=== PATIENT | male | born 1935 | race Caucasian/White ===

== ENCOUNTER 2016-12-11 13:42 | Inpatient (IN) | payer OTHER, MEDICARE ==
[2016-12-11 15:11] LABS: MCH 33.2 pg (25.7-33.7); MCHC 33.6 g/dl (32.0-35.9); MEAN CELL VOLUME 98.6 fl (80-96); MEAN PLT VOLUME 6.6 fl (7.5-11.1); PLATELET COUNT 251 K/MM3 (134-434); WHITE BLOOD COUNT 2.3 K/mm3 (4.0-10.0)
[2016-12-11 15:37] LABS: INR 1.16 (0.82-1.09); PROTHROMBIN TIME (PATIENT) 12.8 SEC (9.98-11.88)
[2016-12-11 15:40] LABS: ACTIVATED PTT 32.3 SECONDS (26.9-34.4)
--- NOTE | 2016-12-11 15:41 | PDOC ---
History of Present Illness - General History Source: Patient Exam Limitations: No Limitations - History of Present Illness Initial Comments: 12/11/16 16:08 The patient is a 81 year old male presenting with his sister, with a significant past medical history of gout, nose melanoma, HTN, CAD s/p tripple bypass, Lung CA s/p nodule removal, who presents to the emergency department with shortness of breath and low blood pressure onset today while at at doctors appointment. He notes that he has been having shortness of breath for the past month or so but has worsened since yesterday. He notes that his health informatics advisor wants him to get a stress test but has been unable to due to his gout flare ups. He states that he currently takes an Aspirin daily. The patient denies chest pain, headache and dizziness. Denies fever, chills, nausea, vomit, diarrhea and constipation. Denies dysuria, frequency, urgency and hematuria. Allergies: None Past surgical history: Tripple Bypass, lung nodule removal Social history: (+) No tobacco or drug use reported PMD - Dr. Vonda Negron Cardiology - Dr. Irene Pulmonary - Dr. Leigh ENT - Dr. Corley <Dawson Madden - Last Filed: 12/11/16 16:08> <Ethan Arriola - Last Filed: 12/11/16 16:53> - General Chief Complaint: Shortness of Breath Stated Complaint: SOB Time Seen by Provider: 12/11/16 14:22 Past History <Dawson Madden - Last Filed: 12/11/16 16:08> - Past Medical History Cardiac Disorders: Yes Other medical history: gout - Surgical History Cardiac Surgery: Yes (bypass) - Psycho/Social/Smoking Cessation Hx Anxiety: No Suicidal Ideation: No Smoking History: Never smoked Have you smoked in the past 12 months: No Information on smoking cessation initiated: No Hx Alcohol Use: No Drug/Substance Use Hx: No Substance Use Type: None <Ethan Arriola - Last Filed: 12/11/16 16:53> - Past Medical History Allergies/Adverse Reactions: Allergies Allergy/AdvReac Type Severity Reaction Status Date / Time No Known Allergies Allergy Verified 12/11/16 13:46 Home Medications: Ambulatory Orders Allopurinol [Zyloprim -] 100 mg PO DAILY 12/11/16 Aspirin [ASA -] 81 mg PO DAILY 12/11/16 Atorvastatin Ca [Lipitor] 40 mg PO HS 12/11/16 Colchicine 0.6 mg PO DAILY 12/11/16 Diazepam [Valium] 2 mg PO PRN 12/11/16 Furosemide [Lasix] 40 mg PO DAILY 12/11/16 Losartan Potassium 50 mg PO DAILY 12/11/16 Metoprolol Tartrate 25 mg PO DAILY 12/11/16 Potassium Chloride [Klor-Con 10] 10 mg PO DAILY 12/11/16 Review of Systems - Review of Systems Able to Perform ROS?: Yes Comments:: 12/11/16 16:08 GENERAL/CONSTITUTIONAL: No fever or chills. No weakness. HEAD, EYES, EARS, NOSE AND THROAT: No change in vision. No ear pain or discharge. No sore throat. CARDIOVASCULAR: No chest pain RESPIRATORY: (+) Shortness of breath. No cough, wheezing, or hemoptysis. GASTROINTESTINAL: No nausea, vomiting, diarrhea or constipation. GENITOURINARY: No dysuria, frequency, or change in urination. MUSCULOSKELETAL: No joint or muscle swelling or pain. No neck or back pain. SKIN: No rash NEUROLOGIC: No headache, vertigo, loss of consciousness, or change in strength/ sensation. ENDOCRINE: No increased thirst. No abnormal weight change HEMATOLOGIC/LYMPHATIC: No anemia, easy bleeding, or history of blood clots. ALLERGIC/IMMUNOLOGIC: No hives or skin allergy. <Dawson Madden - Last Filed: 12/11/16 16:08> *Physical Exam - Vital Signs Last Vital Signs Temp Pulse Resp BP Pulse Ox 97.8 F 63 16 132/50 100 12/11/16 15:47 12/11/16 15:47 12/11/16 15:47 12/11/16 15:47 12/11/16 15:47 - Physical Exam Comments: 12/11/16 16:08 GENERAL: Awake, alert, and fully oriented, in no acute distress HEAD: No signs of trauma, normocephalic, atraumatic EYES: PERRLA, EOMI, sclera anicteric, conjunctiva clear ENT: Auricles normal inspection, hearing grossly normal, nares patent, oropharynx clear without exudates. Moist mucosa NECK: Normal ROM, supple, no lymphadenopathy, JVD, or masses LUNGS: (+) Tachypnia to mid 20s. No distress, speaks full sentences, clear to auscultation bilaterally HEART: Regular rate and rhythm, normal S1 and S2, no murmurs, rubs or gallops, peripheral pulses normal and equal bilaterally. ABDOMEN: Soft, nontender, normoactive bowel sounds. No guarding, no rebound. No masses EXTREMITIES: Normal inspection, Normal range of motion, no edema. No clubbing or cyanosis. NEUROLOGICAL: Cranial nerves II through XII grossly intact. Normal speech, normal gait, no focal sensorimotor deficits SKIN: Warm, Dry, normal turgor, no rashes or lesions noted. <Dawson Madden - Last Filed: 12/11/16 16:08> - Vital Signs Last Vital Signs Temp Pulse Resp BP Pulse Ox 97 F L 65 18 125/49 100 12/11/16 13:46 12/11/16 13:46 12/11/16 13:46 12/11/16 13:46 12/11/16 13:46 <Ethan Arriola - Last Filed: 12/11/16 16:53> Heart Score/ECG Review #1 ECG reviewed & interpreted by me at: 16:30 12/11/16 16:52 NSR 64 with 1st degree AV block, +LVH with strain, Q wave V1-V2, no std/manuelito, QTC 449 msec <Ethan Arriola - Last Filed: 12/11/16 16:53> ED Treatment Course - LABORATORY CBC & Chemistry Diagram: 12/11/16 14:55 12/11/16 14:55 - ADDITIONAL ORDERS Additional order review: Laboratory Results 12/11/16 12/11/16 12/11/16 15:40 14:55 14:55 INR 1.16 H PTT (Actin FS) 32.3 Sodium 139 Potassium 5.1 Chloride 102 Carbon Dioxide 23 Anion Gap 14 BUN 30 H Creatinine 1.7 H Creat Clearance w eGFR 38.78 Random Glucose 97 Calcium 8.8 Magnesium 2.3 Total Bilirubin 0.3 AST 24 ALT 33 Alkaline Phosphatase 97 Creatine Kinase 128 Troponin I < 0.02 B-Natriuretic Peptide 4922.74 H Total Protein 7.2 Albumin 3.1 L Crossmatch See Detail 12/11/16 14:55 RBC 1.69 L MCV 98.6 H MCHC 33.6 RDW 17.0 H MPV 6.6 L Neutrophils % Y Lymphocytes % Y <Dawson Madden - Last Filed: 12/11/16 16:08> - LABORATORY CBC & Chemistry Diagram: 12/11/16 14:55 12/11/16 14:55 - ADDITIONAL ORDERS Additional order review: Laboratory Results 12/11/16 14:55 Sodium 139 Potassium 5.1 Chloride 102 - RADIOLOGY Radiology Studies Ordered: Category Date Time Status CHEST X-RAY PORTABLE* [RAD] Stat Radiology 12/11/16 14:40 Completed <Ethan Arriola - Last Filed: 12/11/16 16:53> Medical Decision Making - Medical Decision Making 12/11/16 16:22 A portion of this note was documented by scribe services under my direction. I have reviewed the details of the note, within reason, and agree with the documentation with the following case summary and management plan written by me. Patient treated in the ED. Nursing notes are reviewed and incorporated into the medical decision-making. Vital signs reviewed. Peripheral IV access obtained by the nurse, laboratory studies are drawn and sent, reviewed and interpreted by myself. Vital Signs Temp Pulse Resp BP Pulse Ox 97.8 F 63 16 132/50 100 12/11/16 15:47 12/11/16 15:47 12/11/16 15:47 12/11/16 15:47 12/11/16 15:47 81-year-old male with past medical history of gout, nose melanoma, hypertension , coronary disease status post triple bypass, lung cancer status post removal presents with shortness of breath. The patient has noticed in last several weeks that he's been dyspneic at rest and dyspnea on exertion. Never endorsed any chest pain. Patient was under evaluation for an ear examined today for routine visit by an distribution warehouse manager when he noticed that he was to continue to rest. Patient denies any rectal bleeding or any other symptoms or pain at the time. Was sent in for cardiac workup. CBC, BMP 12/11/16 14:55 12/11/16 14:55 CMP Sodium 139 mmol/L (136-145) 12/11/16 14:55 Potassium 5.1 mmol/L (3.5-5.1) 12/11/16 14:55 Chloride 102 mmol/L (98-107) 12/11/16 14:55 Carbon Dioxide 23 mmol/L (21-32) 12/11/16 14:55 Anion Gap 14 (8-16) 12/11/16 14:55 BUN 30 mg/dL (7-18) H 12/11/16 14:55 Creatinine 1.7 mg/dL (0.7-1.3) H 12/11/16 14:55 Creat Clearance w eGFR 38.78 (>60) 12/11/16 14:55 Random Glucose 97 mg/dL (74-106) 12/11/16 14:55 Calcium 8.8 mg/dL (8.5-10.1) 12/11/16 14:55 Magnesium 2.3 mg/dL (1.8-2.4) 12/11/16 14:55 Total Bilirubin 0.3 mg/dL (0.2-1.0) 12/11/16 14:55 AST 24 U/L (15-37) 12/11/16 14:55 ALT 33 U/L (12-78) 12/11/16 14:55 Alkaline Phosphatase 97 U/L (45-117) 12/11/16 14:55 Creatine Kinase 128 IU/L (39-308) 12/11/16 14:55 Troponin I < 0.02 ng/ml (0.00-0.05) 12/11/16 14:55 B-Natriuretic Peptide 4922.74 pg/ml (5-450) H 12/11/16 14:55 Total Protein 7.2 g/dl (6.4-8.2) 12/11/16 14:55 Albumin 3.1 g/dl (3.4-5.0) L 12/11/16 14:55 Patient was noted to have a hemoglobin of 5 and change. Concerning for subarachnoid anemia. 2 units PRBC ordered. Risks and benefits are discussed with the patient patient consents for blood transfusion.. We'll order 40 mg of IV Lasix in between blood. Case was discussed with Dr. Negron who accepts the patient for telemetry admission. Dr. Irene consulted. Stool occult ordered. Pt also noted to have acute renal insufficiency. Case discussed in detail with admitting physician including history, physical exam and ancillary studies. Admitting physician has assumed care for the patient, will follow all pending diagnostics and will complete the evaluation and treatment. <Ethan Arriola - Last Filed: 12/11/16 16:53> *DC/Admit/Observation/Transfer - Attestations Scribe Attestion: 12/11/16 16:09 Documentation prepared by Dawson Madden, acting as ophthalmic medical technician for Ethan Arriola MD <Dawson Madden - Last Filed: 12/11/16 16:08> - Discharge Dispostion Admit: Yes <Ethan Arriola - Last Filed: 12/11/16 16:53> Diagnosis at time of Disposition: Acute kidney injury, Shortness of breath Anemia Qualifiers: Anemia type: unspecified type Qualified Code(s): D64.9 - Anemia, unspecified - Referrals
[2016-12-11 15:47] LABS: ALBUMIN 3.1 g/dl (3.4-5.0); ANION GAP 14 (8-16); BILIRUBIN,TOTAL 0.3 mg/dL (0.2-1.0); CALCIUM 8.8 mg/dL (8.5-10.1); CO2 23 mmol/L (21-32); COCKROFT - GAULT 40.83; CREATININE 1.7 mg/dL (0.7-1.3); GLUCOSE,RANDOM 97 mg/dL (74-106); SGPT/ALT 33 U/L (12-78); TOT PROT 7.2 g/dl (6.4-8.2)
[2016-12-11 15:49] LABS: ALK PHOS 97 U/L (45-117); TROPONIN I < 0.02 ng/ml (0.00-0.05)
[2016-12-11 15:52] LABS: MAGNESIUM 2.3 mg/dL (1.8-2.4); SGOT/AST 24 U/L (15-37)
[2016-12-11] MEDS ORDERED: FUROSEMIDE 40 MG/4 ML INJECTABLE VIAL IVPB ONE (15:55)
[2016-12-11 18:07] LABS: PLATELET ESTIMATE ADEQUATE (NORMAL)
[2016-12-11 18:08] LABS: POLYCHROMASIA 1+
[2016-12-11] MEDS ORDERED: ACETAMINOPHEN 325 MG TABLET (FP) PO PRN (18:37)
--- NOTE | 2016-12-11 18:45 | HP ---
Admitting History and Physical - Primary Care Physician PCP: Vonda Negron - Admission Chief Complaint: SENT FROM ENT OFFICE BECAUSE OF HYPOTENSION 90/40MM/HG WITH DIZZINESS, DYSPNEA, WEAKNESS History of Present Illness: PATIENT WELL KNOWN TO MY SERVICE WITH CAD/CABG/LIPIDEMIA/SEVERE GOUT/HTN/OBESITY /NON-COMPLIANT WITH MEDICAL FOLLOW UP AND REGIMEN. HERE WITH WEAKNESS, ACUTE ANEMIA, HYPOTENSION, SEVERE GOUT AND DYSPNEA. The patient is a 81 year old male presenting with his sister, with a significant past medical history of gout, nose melanoma, HTN, CAD s/p tripple bypass, Lung CA s/p nodule removal, who presents to the emergency department with shortness of breath and low blood pressure onset today while at at doctors appointment. He notes that he has been having shortness of breath for the past month or so but has worsened since yesterday. He notes that his country singer wants him to get a stress test but has been unable to due to his gout flare ups. He states that he currently takes an Aspirin daily. The patient denies chest pain, headache and dizziness. Denies fever, chills, nausea, vomit, diarrhea and constipation. Denies dysuria, frequency, urgency and hematuria. Allergies: None Past surgical history: Tripple Bypass, lung nodule removal Social history: (+) No tobacco or drug use reported PMD - Dr. Vonda Negron Cardiology - Dr. Irene Pulmonary - Dr. Leigh ENT - Dr. Corley - Smoking History Smoking history: Never smoked Have you smoked in the past 12 months: No - Alcohol/Substance Use Hx Alcohol Use: No Home Medications - Allergies Allergies/Adverse Reactions: Allergies Allergy/AdvReac Type Severity Reaction Status Date / Time No Known Allergies Allergy Verified 12/11/16 13:46 - Home Medications Home Medications: Ambulatory Orders Allopurinol [Zyloprim -] 100 mg PO DAILY 12/11/16 Aspirin [ASA -] 81 mg PO DAILY 12/11/16 Atorvastatin Ca [Lipitor] 40 mg PO HS 12/11/16 Colchicine 0.6 mg PO DAILY 12/11/16 Diazepam [Valium] 2 mg PO PRN 12/11/16 Furosemide [Lasix] 40 mg PO DAILY 12/11/16 Losartan Potassium 50 mg PO DAILY 12/11/16 Metoprolol Tartrate 25 mg PO DAILY 12/11/16 Potassium Chloride [Klor-Con 10] 10 mg PO DAILY 12/11/16 Review of Systems - Review of Systems Constitutional: reports: Lethargy, Loss of Appetite, Weakness Eyes: reports: No Symptoms HENT: reports: No Symptoms Neck: reports: No Symptoms Cardiovascular: reports: Shortness of Breath Respiratory: reports: Cough, SOB Gastrointestinal: reports: No Symptoms Genitourinary: reports: No Symptoms Musculoskeletal: reports: Joint Pain Integumentary: reports: No Symptoms Neurological: reports: No Symptoms Endocrine: reports: No Symptoms Hematology/Lymphatic: reports: No Symptoms Psychiatric: reports: No Symptoms Physical Examination Vital Signs: Vital Signs Temperature 98.6 F 12/11/16 17:59 Pulse Rate 66 12/11/16 17:59 Respiratory Rate 18 12/11/16 17:59 Blood Pressure 137/56 12/11/16 17:59 O2 Sat by Pulse Oximetry (%) 100 12/11/16 17:59 Constitutional: Yes: Moderate Distress Eyes: Yes: WNL HENT: Yes: Other (PALE APPEARANCE) Neck: Yes: WNL Cardiovascular: Yes: WNL Respiratory: Yes: Cough, Diminished, SOB, SOB on Exertion Gastrointestinal: Yes: WNL Renal/: Yes: WNL Musculoskeletal: Yes: Muscle Weakness Extremities: Yes: WNL Edema: Yes Edema: LLE: Trace, RLE: Trace Peripheral Pulses WNL: Yes Integumentary: Yes: WNL Wound/Incision: Yes: Clean/Dry Neurological: Yes: WNL ...Motor Strength: WNL Psychiatric: Yes: WNL Imaging - Results Chest X-ray: Report Reviewed Problem List - Problems (1) Acute kidney injury Code(s): N17.9 - ACUTE KIDNEY FAILURE, UNSPECIFIED (2) Anemia Code(s): D64.9 - ANEMIA, UNSPECIFIED Qualifiers: Anemia type: unspecified type Qualified Code(s): D64.9 - Anemia, unspecified (3) Shortness of breath Code(s): R06.02 - SHORTNESS OF BREATH (4) Gout attack Code(s): M10.9 - GOUT, UNSPECIFIED Qualifiers: Gout site: foot Gout etiology: unspecified cause Laterality: left Qualified Code(s): M10.9 - Gout, unspecified (5) Hx of CABG Code(s): Z95.1 - PRESENCE OF AORTOCORONARY BYPASS GRAFT (6) Weakness generalized Code(s): R53.1 - WEAKNESS (7) Melanoma Code(s): C43.9 - MALIGNANT MELANOMA OF SKIN, UNSPECIFIED Qualifiers: Melanoma location: face excluding eyelid, nose, lip, and ear Qualified Code(s): C43.30 - Malignant melanoma of unspecified part of face (8) Lung cancer Code(s): C34.90 - MALIGNANT NEOPLASM OF UNSP PART OF UNSP BRONCHUS OR LUNG Qualifiers: Laterality: unspecified laterality Lung location: unspecified part of lung Qualified Code(s): C34.90 - Malignant neoplasm of unspecified part of unspecified bronchus or lung Assessment/Plan ANEMIA UNKNOWN CAUSE AT THIS TIME NEOPLASM? BLEED? GOUT INDUCED FROM NSAIDS WITH GI BLEED? 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
[2016-12-11] MEDS: COLCHICINE 0.6 MG TABLET (FP) PO SCH (19:00)
[2016-12-11] MEDS: PANTOPRAZOLE 40 MG TABLET (FP) PO SCH (19:00)
[2016-12-11] MEDS: methylPREDNISolone 4 MG TABLET PO SCH (20:00)
[2016-12-11] MEDS ORDERED: ATORVASTATIN CA 40 MG TABLET (FP) ONE (21:55)
[2016-12-11] MEDS ORDERED: PANTOPRAZOLE 40 MG TABLET (FP) ONE (21:55)
[2016-12-11] MEDS ORDERED: COLCHICINE 0.6 MG TABLET (FP) ONE (21:55)
[2016-12-11] MEDS: ATORVASTATIN CA 20 MG TABLET (FP) PO SCH (21:58)
[2016-12-11] MEDS ORDERED: FUROSEMIDE 40 MG/4 ML INJECTABLE VIAL ONE (22:00)
[2016-12-12 02:40] VITALS: BMI 31.7
[2016-12-12 07:46] LABS: MCH 32.2 pg (25.7-33.7); MCHC 34.3 g/dl (32.0-35.9); MEAN CELL VOLUME 93.6 fl (80-96); MEAN PLT VOLUME 6.3 fl (7.5-11.1); PLATELET COUNT 222 K/MM3 (134-434); RDW 18.3 % (11.9-15.9)
[2016-12-12 08:03] LABS: URIC ACID 7.4 mg/dL (2.6-7.2)
[2016-12-12 08:12] LABS: ALBUMIN 2.9 g/dl (3.4-5.0); BILIRUBIN,TOTAL 0.6 mg/dL (0.2-1.0); CALCIUM 8.4 mg/dL (8.5-10.1); COCKROFT - GAULT 45.73; CREATININE 1.4 mg/dL (0.7-1.3); TOT PROT 6.8 g/dl (6.4-8.2); WHITE BLOOD COUNT 1.8 K/mm3 (4.0-10.0)
--- NOTE | 2016-12-12 08:31 | CON.CARD ---
Consult Consult Specialty:: Cardiology Referred by:: Dr. Negron Reason for Consultation:: Hypotension, dizziness, syncope, cad - History of Present Illness Chief Complaint: sent to ER for hypotension, dizziness History of Present Illness: 81 year old man with a history of HTN, HLD, CAD s/p CABG, Chronic diastolic CHF , melonoma of nose, Lung CA s/p nodule resection, gout, sent to ER from ENT office for hypotension, dizziness. Pt. seen and examined today in nad. states he is feeling better. states that this past sunday he had an episode of syncope at home preceded by dizziness. denies any bleeding. no black or bloody stools. no chest pain, sob, palpitations, pnd, orthopnea, or LE edema. Pt found to be severely anemic and neutropenic. - History Source History Provided By: Patient, Medical Record Limitations to Obtaining History: No Limitations - Past Medical History Cardio/Vascular: Yes: CAD, HTN, Hyperlipdemia Pulmonary: Yes: Cancer Heme/Onc: Yes: Cancer Rheumatology: Yes: Gout - Past Surgical History Past Surgical History: Yes: CABG - Alcohol/Substance Use Hx Alcohol Use: No - Smoking History Smoking history: Former smoker Have you smoked in the past 12 months: No - Social History History of Recent Travel: No Home Medications - Allergies Allergies/Adverse Reactions: Allergies Allergy/AdvReac Type Severity Reaction Status Date / Time No Known Allergies Allergy Verified 12/11/16 13:46 - Home Medications Home Medications: Ambulatory Orders Allopurinol [Zyloprim -] 100 mg PO DAILY 12/11/16 Aspirin [ASA -] 81 mg PO DAILY 12/11/16 Atorvastatin Ca [Lipitor] 40 mg PO HS 12/11/16 Colchicine 0.6 mg PO DAILY 12/11/16 Diazepam [Valium] 2 mg PO PRN 12/11/16 Furosemide [Lasix] 40 mg PO DAILY 12/11/16 Losartan Potassium 50 mg PO DAILY 12/11/16 Metoprolol Tartrate 25 mg PO DAILY 12/11/16 Potassium Chloride [Klor-Con 10] 10 mg PO DAILY 12/11/16 Family Disease History - Family Disease History Family History: Denies Review of Systems - Review of Systems Constitutional: reports: Loss of Appetite, Unintentional Wgt. Loss, Weakness. denies: No Symptoms, Chills, Diaphoresis, Fever, Lethargy, Malaise, Night Sweats , Other Eyes: denies: No Symptoms, Blind Spots, Blurred Vision, Double Vision, Eye Pain , Floaters, Photophobia, Recent Change in Vision, Other HENT: denies: No Symptoms, Difficult Swallowing, Ear Discharge, Ear Pain, Epistaxis, Gingival Bleeding, Hearing Loss, Mouth Swelling, Nasal Congestion, Ocular Prosthesis, Throat Pain, Toothache, Ringing in Ears, Other Neck: denies: No Symptoms, Decreased ROM, Lumps, Pain on Movement, Stiffness, Swollen Glands, Tenderness, Other Cardiovascular: denies: No Symptoms, Chest Pain, Edema, Palpitations, Shortness of Breath, Other Respiratory: reports: Exercise Intolerance, SOB on Exertion. denies: No Symptoms, Cough, Hemoptysis, Orthopnea, PND, Snoring, SOB, Wheezing, Other Gastrointestinal: denies: No Symptoms, Abdominal Pain, Bloating, Constipation, Diarrhea, Dysphagia, Indigestion, Melena, Nausea, Rectal Bleeding, Vomiting, Vomiting Blood, Other Genitourinary: denies: No Symptoms, Burning, Discharge, Dysuria, Flank Pain, Frequency, Hematuria, Incontinence, Lesions, Menses, Pain, Testicular Mass, Testicular Pain, Testicular Swelling, Urgency, Vaginal Bleeding, Other Breasts: denies: No Symptoms Reported, See HPI, Breast Implants, Discharge from Nipple, Lumps, Pain, Skin Changes, Other Musculoskeletal: denies: No Symptoms, Back Pain, Crepitus, Decreased ROM, Extremity Pain, Joint Pain, Joint Swelling, Muscle Pain, Muscle Cramps, Muscle Weakness, Other Integumentary: denies: No Symptoms, Blister, Bruising, Change in Color, Eczema, Erythema, Incision, Lesions, Lump, Pallor, Pruritis, Rash, Wound, Other Neurological: reports: Dizziness, Syncope. denies: No Symptoms, Change in LOC, Change in Speech, Confusion, Headache, Incoordination, Numbness, Parasthesia, Pre-Existing Deficit, Seizure, Tremors, Unsteady Gait, Weakness, Other Endocrine: denies: No Symptoms, Excessive Sweating, Flushing, Increased Hunger, Increased Thirst, Intolerance to Cold, Intolerance to Heat, Unexplained Weight Gain, Unexplained Weight Loss, Other Hematology/Lymphatic: denies: No Symptoms, Easily Bruised, Excessive Bleeding, Swollen Glands, Other Psychiatric: denies: No Symptoms, Altered Sleep Pattern, Anxiety, Depression, Hallucinations, Panic, Paranoia, Suicidal, Other - Risk Factors Known Risk Factors: Yes: Hypercholesterolemia, Hypertension Vital Signs: Vital Signs Temperature 98.1 F 12/12/16 05:45 Pulse Rate 71 12/12/16 05:45 Respiratory Rate 20 12/12/16 05:45 Blood Pressure 133/67 12/12/16 05:45 O2 Sat by Pulse Oximetry (%) 100 12/11/16 23:23 Constitutional: Yes: Well Nourished, No Distress, Calm Eyes: Yes: WNL, Conjunctiva Clear, EOM Intact HENT: Yes: WNL, Atraumatic, Normocephalic Neck: Yes: WNL, Supple, Trachea Midline Respiratory: Yes: WNL, Regular, CTA Bilaterally. No: Rales, Rhonchi, Wheezes Gastrointestinal: Yes: WNL, Normal Bowel Sounds, Soft. No: Distention, Tenderness Renal/: Yes: WNL Cardiovascular: Yes: Regular Rate and Rhythm. No: Bradycardia, Tachycardia, Pulse Irregular, Gallop, Rub, Varicosities JVD: No Carotid Bruit: No PMI: Non-Displaced Heart Sounds: Yes: S1, S2. No: Split S2, S3, S4, Clicks, Gallop, Rub, Bruit Murmur: No: Systolic Murmur, Diastolic Murmur Musculoskeletal: Yes: WNL Extremities: Yes: WNL Edema: No Peripheral Pulses WNL: Yes Peripheral Pulses: 2+ Left Doralis Pedis, 2+ Right Dorsalis Pedis Integumentary: Yes: WNL Neurological: Yes: Alert, Oriented, Cran Nerves II-XII Intact ...Motor Strength: WNL Psychiatric: Yes: WNL, Alert, Oriented - Other Data Labs, Other Data: CBC, BMP 12/12/16 05:40 INR, PTT INR 1.16 (0.82-1.09) H 12/11/16 14:55 ekg-NSR 64bpm, septal infarct, LVH, LAFB Echo: Pending, Report Reviewed Prior Cardiac Procedures: CABG, Cardiac Catheterization Imaging - Results Chest X-ray: Report Reviewed, Image Reviewed EKG: Report Reviewed, Image Reviewed Other: Report Reviewed, Image Reviewed (tele-nsr, sinus kelly, apcs, pvcs) Problem List - Problems (1) Anemia Code(s): D64.9 - ANEMIA, UNSPECIFIED Qualifiers: Anemia type: unspecified type Qualified Code(s): D64.9 - Anemia, unspecified (2) Hx of CABG Code(s): Z95.1 - PRESENCE OF AORTOCORONARY BYPASS GRAFT (3) Shortness of breath Code(s): R06.02 - SHORTNESS OF BREATH (4) Syncope Code(s): R55 - SYNCOPE AND COLLAPSE (5) Dizziness Code(s): R42 - DIZZINESS AND GIDDINESS (6) HTN (hypertension) Code(s): I10 - ESSENTIAL (PRIMARY) HYPERTENSION (7) HLD (hyperlipidemia) Code(s): E78.5 - HYPERLIPIDEMIA, UNSPECIFIED (8) Chronic diastolic (congestive) heart failure Code(s): I50.32 - CHRONIC DIASTOLIC (CONGESTIVE) HEART FAILURE Assessment/Plan 81 year old man with a history of HTN, HLD, CAD s/p CABG, Chronic diastolic CHF , melonoma of nose, Lung CA s/p nodule resection, gout, sent to ER from ENT office for hypotension, dizziness. states that this past sunday he had an episode of syncope at home preceded by dizziness.Pt found to be severely anemic and neutropenic. Dizziness/Hypotension/Syncope-likely secondary to severe symptomatic anemia -no events on tele and no sig abnormalities on ekg -H/H improved with PRBCs -anemia work up in progress, heme/onc consult pending -hydrate as needed for intravascular depletion-should improve with PRBC transfusions -can check echo and carotid doppler to confirm no sig abnl -echo done 06/2016 in office showed normal LV systolic function -can cont tele for now while severely anemic CAD h/o CABG-stable -pt last seen in office 06/2016 refused nuclear stress test at that time -holding metoprolol, losartan, lasix for now for hypotension and intravascular depletion -hold ASA until etiology of anemia determined -plan to re-introduce meds as tolerated -can cont statin HTN-low normal, symptomatic on admission -holding anti-HTN meds for now HLD -cont statin Chronic diastolic CHF-euvolemic, intravascularly depleted -hold lasix for now, re-introduce as tolerates
[2016-12-12 08:38] LABS: C-REACTIVE PROTEIN 8.2 MG/DL (0.00-0.3)
[2016-12-12 09:08] LABS: PLATELET ESTIMATE ADEQUATE (NORMAL)
[2016-12-12] MEDS: methylPREDNISolone 4 MG TABLET PO SCH ×2 (09:51→14:01)
[2016-12-12] MEDS: PANTOPRAZOLE 40 MG TABLET (FP) PO SCH (09:51)
[2016-12-12] MEDS: COLCHICINE 0.6 MG TABLET (FP) PO SCH (09:51)
[2016-12-12] MEDS ORDERED: ASPIRIN 81 MG CHEWABLE TABLETS PO SCH (10:00)
--- NOTE | 2016-12-12 11:37 | EKG ---
Test Reason : Blood Pressure : / mmHG Vent. Rate : 064 BPM Atrial Rate : 064 BPM P-R Int : 214 ms QRS Dur : 140 ms QT Int : 436 ms P-R-T Axes : 000 -44 112 degrees QTc Int : 449 ms SINUS RHYTHM WITH 1ST DEGREE A-V BLOCK LEFT AXIS DEVIATION LEFT BUNDLE BRANCH BLOCK ABNORMAL ECG WHEN COMPARED WITH ECG OF 25-DEC-2009 13:11, NO SIGNIFICANT CHANGE WAS FOUND Confirmed by MALINI WOODWARD, HARLEEN ([id number]) on 12/12/2016 11:36:36 AM Referred By: Confirmed By:HARLEEN NAYAK MD
--- NOTE | 2016-12-12 11:56 | PN ---
Progress Note (short form) - Note Progress Note: PULMONARY CONSULTATION DICTATED 12/12/16 IMP DYSPNEA,HYPOTENSION SECONDARY TO SEVERE ANEMIA ANEMIA,NEUTROPENIA DIASTOLIC HF ASHD S/P CABG H/O LUNG CA S/P RESECTION HLD H/O MELANOMA GOUT PLAN TRANSFUSE MONITOR H+H HEME W/U ECHO O2 PRN DR HANSEN Problem List - Problems (1) Acute kidney injury Code(s): N17.9 - ACUTE KIDNEY FAILURE, UNSPECIFIED (2) Anemia Code(s): D64.9 - ANEMIA, UNSPECIFIED Qualifiers: Anemia type: unspecified type Qualified Code(s): D64.9 - Anemia, unspecified (3) Chronic diastolic (congestive) heart failure Code(s): I50.32 - CHRONIC DIASTOLIC (CONGESTIVE) HEART FAILURE (4) Dizziness Code(s): R42 - DIZZINESS AND GIDDINESS (5) HLD (hyperlipidemia) Code(s): E78.5 - HYPERLIPIDEMIA, UNSPECIFIED (6) HTN (hypertension) Code(s): I10 - ESSENTIAL (PRIMARY) HYPERTENSION (7) Hx of CABG Code(s): Z95.1 - PRESENCE OF AORTOCORONARY BYPASS GRAFT (8) Lung cancer Code(s): C34.90 - MALIGNANT NEOPLASM OF UNSP PART OF UNSP BRONCHUS OR LUNG Qualifiers: Laterality: unspecified laterality Lung location: unspecified part of lung Qualified Code(s): C34.90 - Malignant neoplasm of unspecified part of unspecified bronchus or lung (9) Melanoma Code(s): C43.9 - MALIGNANT MELANOMA OF SKIN, UNSPECIFIED Qualifiers: Melanoma location: face excluding eyelid, nose, lip, and ear Qualified Code(s): C43.30 - Malignant melanoma of unspecified part of face (10) Shortness of breath Code(s): R06.02 - SHORTNESS OF BREATH (11) Syncope Code(s): R55 - SYNCOPE AND COLLAPSE (12) Weakness generalized Code(s): R53.1 - WEAKNESS
--- NOTE | 2016-12-12 15:27 | CONSULT ---
Consult Consult Specialty:: Nephrology Reason for Consultation:: NUBIA - History of Present Illness Chief Complaint: shortness of breath History of Present Illness: Pt is an 81 year old male with pmhx of lung cancer, CAD, HTN, melanoma of the nose, and gout who presents to the ER with shortness of breath and hypotension. He was found to be anemic and admitted for transfusion. Pt complains of about a 30 pound weight loss. He was found to have elevated creatinine and I was called to evaluate him. He denies history for CKD. He does take naproxen daily for the last few weeks. He denies hematuria or dysuria. - History Source History Provided By: Patient, Family Member, Medical Record - Past Medical History Cardio/Vascular: Yes: CAD, HTN, Hyperlipdemia Pulmonary: Yes: Cancer Rheumatology: Yes: Gout - Past Surgical History Past Surgical History: Yes: CABG - Alcohol/Substance Use Hx Alcohol Use: No - Smoking History Smoking history: Former smoker Have you smoked in the past 12 months: No - Social History History of Recent Travel: No Home Medications - Allergies Allergies/Adverse Reactions: Allergies Allergy/AdvReac Type Severity Reaction Status Date / Time No Known Allergies Allergy Verified 12/11/16 13:46 - Home Medications Home Medications: Ambulatory Orders Allopurinol [Zyloprim -] 100 mg PO DAILY 12/11/16 Aspirin [ASA -] 81 mg PO DAILY 12/11/16 Atorvastatin Ca [Lipitor] 40 mg PO HS 12/11/16 Colchicine 0.6 mg PO DAILY 12/11/16 Diazepam [Valium] 2 mg PO PRN 12/11/16 Furosemide [Lasix] 40 mg PO DAILY 12/11/16 Losartan Potassium 50 mg PO DAILY 12/11/16 Metoprolol Tartrate 25 mg PO DAILY 12/11/16 Potassium Chloride [Klor-Con 10] 10 mg PO DAILY 12/11/16 Family Disease History - Family Disease History Family History: Denies Review of Systems - Review of Systems Constitutional: reports: Malaise, Unintentional Wgt. Loss Eyes: reports: No Symptoms HENT: reports: No Symptoms Neck: reports: No Symptoms Cardiovascular: reports: Shortness of Breath. denies: Edema Respiratory: reports: SOB Gastrointestinal: reports: No Symptoms Genitourinary: reports: No Symptoms Musculoskeletal: reports: No Symptoms Neurological: reports: No Symptoms Endocrine: reports: No Symptoms Psychiatric: reports: No Symptoms Physical Exam Vital Signs: Vital Signs Temperature 98.0 F 12/12/16 12:17 Pulse Rate 67 12/12/16 12:17 Respiratory Rate 20 12/12/16 12:17 Blood Pressure 151/70 12/12/16 12:17 O2 Sat by Pulse Oximetry (%) 97 12/12/16 09:00 Constitutional: Yes: Calm Eyes: Yes: Conjunctiva Clear HENT: Yes: Atraumatic Neck: Yes: Supple Cardiovascular: Yes: S1, S2 Respiratory: Yes: CTA Bilaterally Gastrointestinal: Yes: Soft Renal/: Yes: WNL Musculoskeletal: Yes: WNL Edema: No Neurological: Yes: Oriented Psychiatric: Yes: Oriented Labs: CBC, BMP 12/12/16 05:40 12/12/16 05:40 Laboratory Tests 12/11/16 12/11/16 12/12/16 14:55 14:55 05:40 WBC 2.3 L Hgb 5.6 L* Plt Count 251 Sodium 139 136 Potassium 5.1 4.4 Chloride 102 102 Carbon Dioxide 23 24 Anion Gap 14 10 BUN 30 H 28 H Creatinine 1.7 H 1.4 H Creat Clearance w eGFR 38.78 48.52 Hemoglobin A1c % 12/12/16 12/12/16 05:40 05:40 WBC 1.8 L* Hgb 7.3 L D Plt Count 222 Sodium Potassium Chloride Carbon Dioxide Anion Gap BUN Creatinine Creat Clearance w eGFR Hemoglobin A1c % 5.6 Imaging - Results Chest X-ray: Report Reviewed Problem List - Problems (1) Acute kidney injury Code(s): N17.9 - ACUTE KIDNEY FAILURE, UNSPECIFIED (2) Anemia Code(s): D64.9 - ANEMIA, UNSPECIFIED Qualifiers: Anemia type: unspecified type Qualified Code(s): D64.9 - Anemia, unspecified (3) Dizziness Code(s): R42 - DIZZINESS AND GIDDINESS (4) HLD (hyperlipidemia) Code(s): E78.5 - HYPERLIPIDEMIA, UNSPECIFIED (5) HTN (hypertension) Code(s): I10 - ESSENTIAL (PRIMARY) HYPERTENSION (6) Hx of CABG Code(s): Z95.1 - PRESENCE OF AORTOCORONARY BYPASS GRAFT (7) Lung cancer Code(s): C34.90 - MALIGNANT NEOPLASM OF UNSP PART OF UNSP BRONCHUS OR LUNG Qualifiers: Laterality: unspecified laterality Lung location: unspecified part of lung Qualified Code(s): C34.90 - Malignant neoplasm of unspecified part of unspecified bronchus or lung (8) Melanoma Code(s): C43.9 - MALIGNANT MELANOMA OF SKIN, UNSPECIFIED Qualifiers: Melanoma location: face excluding eyelid, nose, lip, and ear Qualified Code(s): C43.30 - Malignant melanoma of unspecified part of face (9) Shortness of breath Code(s): R06.02 - SHORTNESS OF BREATH Assessment/Plan Current Medications Generic Name Dose Route Start Last Admin Trade Name Freq PRN Reason Stop Dose Admin Acetaminophen 650 mg 12/11/16 18:37 Tylenol - PO Q6H PRN FEVER OR PAIN Atorvastatin Calcium 20 mg 12/11/16 22:00 12/11/16 21:58 Lipitor - PO 20 mg HS MABEL Administration Colchicine 0.6 mg 12/11/16 18:45 12/12/16 09:51 Colcrys - PO 0.6 mg DAILY MABEL Administration Diazepam 2 mg 12/11/16 18:37 Valium - PO 12/14/16 18:37 Q12H PRN ANXIETY Methylprednisolone 4 mg 12/11/16 18:45 12/12/16 14:01 Medrol - PO 4 mg DAILY MABEL Administration Pantoprazole Sodium 40 mg 12/11/16 18:45 12/12/16 09:51 Protonix - PO 40 mg DAILY MABEL Administration Impression 1. NUBIA 2. anemia 3. leukopenia 4. hx lung cancer 5. hx melanoma 6. shortness of breath 7. gout 8. CAD 9. hypotension Plan - [facility] is [facility] bladder - will order ua - check urine lytes and creatinine - recommend oncology eval and malignancy workup, pt has weight loss along with anemia and leukopenia - repeat labs in am - will follow - anemia and hypotension can both contribute to NUBIA Dr Bray
--- NOTE | 2016-12-12 15:53 | CONS ---
DATE OF CONSULTATION: 12/12/2016 PULMONARY CONSULTATION REFERRING PHYSICIAN: Vonda Negron M.D. HISTORY OF PRESENT ILLNESS: The patient is an 81-year-old white male known to me from previous hospitalization, past medical history of ASHD status post CABG, chronic diastolic congestive heart failure, melanoma of the nose, lung CA status post resection, hypertension, hyperlipidemia, gout, history of tobacco use years ago, admitted to [facility] for ENT office secondary to shortness of breath and dizziness. Patient went to see doctor at the ENT for evaluation of hearing at the time he also complained of shortness of breath, was noted to be hypotensive. He was to go to the emergency room. In the ER, apparently a few days, Sunday prior to this admission, he had an episode of syncope at home preceded by dizziness. He denies any bleeding or black tarry stools. Denied any chest pain or palpitations. Has been complaining of increasing shortness of breath and dyspnea on exertion over the past month. On admission, he is found to be markedly anemic with hemoglobin of 5.6 g and white count of 2.3. He is admitted to telemetry and transfused 2 units of packed red blood cells without complication. The patient denies any abdominal pain and denies any hematochezia, hematemesis, or black tarry stools. PAST MEDICAL HISTORY: Again includes ASHD status post CABG, history of lung CA status post resection, unknown tissue type. Hypertension, hyperlipidemia, chronic diastolic CHF, melanoma of the nose, and gout. REVIEW OF SYSTEMS: Positive dyspnea. No chest pain. Positive lightheadedness. No nausea, no vomiting, no abdominal pain, no fevers, no chills, no weight loss, no night sweats, no hemoptysis. CURRENT MEDICATIONS: Include Solu-Medrol 4 mg daily, Tylenol, colchicine, valium, Lipitor, and Protonix. PHYSICAL EXAMINATION: General: The patient is an elderly white male, well-developed, awake, alert, in no acute distress. Vital signs: He is currently afebrile. Blood pressure 133/67, respiratory rate 20, heart rate 71, and O2 saturation is 100% on room air. HEENT: Head is normocephalic, atraumatic. Neck: Supple. Heart: Regular. S1, S2. Chest: Crackles at the left base. Abdomen: Soft. Bowel sounds positive. Extremities: No cyanosis, edema. LABORATORY: WBC is 1.8, hemoglobin 7.3, hematocrit 21.2 with platelet count of 222,000. On admission, WBC is 2.3, hemoglobin is 5.6, hematocrit of 16.6, and platelet count of 251,000. INR 1.16, BUN 28, creatinine 1.4. Chest x-ray reveals cardiomegaly, previous open heart surgery, no acute infiltrates and/or effusions. IMPRESSION: 1. Hypotension, dyspnea most likely secondary to symptomatic anemia. 2. Anemia, leukopenia, etiology undetermined. 3. Atherosclerotic heart disease , status post coronary artery bypass graft. 4. Diastolic congestive heart failure. 5. History of lung carcinoma status post resection, cell type unknown. Might be underlying chronic obstructive pulmonary disease. PLAN: Transfuse. Gastrointestinal workup and hematologic workup. Echocardiogram. Supplemental O2. Monitor hemoglobin and hematocrit. Thank you. I will follow closely with you. JERRY HANSEN M.D. [id number]
--- NOTE | 2016-12-12 19:41 | PN ---
Progress Note (short form) - Note Progress Note: CONSULT DICTATED 81 year old with past history of ASHD, S/P CABG, HBP, HLD, melanoma of nose s/ p surgery, Lung ca, s/p resection, presents with profound anemia and neutropenia. Was hypotensive and dizzy on admission . Has received 2 units of packed cells with some improvement in symptoms. Symptoms have been progressive over 2 1/2 -3 months associated with 25-30 lb weight loss. Review of peripheral blood RBC- rouleaux Platelets -adequate including giant platelets WBC- marked decrease with increase lymphs Chemistries- reverse albumin/globulin ratio ; mild renal insufficiency The constellation of rouleaux with anemia, renal insufficiency, reverse a/g ratio raises concern for dysproteinemia. Plan: Screening tests to include protein studies , flow cytometry, stool guaics , retic, LDH, B-12, folate, TFT's.
--- NOTE | 2016-12-12 20:40 | CONS ---
DATE OF CONSULTATION: 12/12/2016 HISTORY OF PRESENT ILLNESS: This is an 81-year-old male who entered with dizziness, hypotension, and profoundly anemic with neutropenia. His past medical history includes that of hypertension, hypercholesterolemia, status post coronary artery bypass graft, chronic diastolic congestive heart failure, melanoma of the nose status post resection 12 years ago, lung CA status post resection about 7 years ago, gout. PAST MEDICAL HISTORY: As aforementioned, coronary artery disease, hypertension, hyperlipidemia, and gout. PAST SURGICAL HISTORY: Coronary artery bypass graft. SOCIAL HISTORY: The patient is not . Former smoker. 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 Drinks 2-3 shots of alcohol nightly. FAMILY HISTORY: No history of cancer or hematologic disorders in the family. Mother and father of old age. No recent travel. ALLERGIES: No known allergies. HOME MEDICATIONS: Allopurinol 100 mg daily, aspirin 81 mg daily, atorvastatin as Lipitor 40 mg nightly, colchicine 0.6 daily, valium 2 mg p.r.n., Lasix 40 mg daily, Losartan 50 mg daily, metoprolol 25 mg daily and Klor-Con 10 mg daily. REVIEW OF SYSTEMS: No headaches, no diplopia, no epistaxis, no dysphagia, recently with shortness of breath, difficulty breathing, no chest pain. Recently with 25-30 pound weight loss over the past 2-1/2 to 3 months. Denies nausea, vomiting, diarrhea or constipation, melena. No dysuria or hematuria. Nocturia several times per night with decreased stream and dribbling at end of micturition. No back or bone pain. No numbness or tingling of the fingers or toes. PHYSICAL EXAMINATION: Vital Signs: Currently BP152/67, temperature 97.3, pulse 61, respiratory rate 16. HEENT: PERRLA. EOM intact. There is arcus. The patient is status post surgery for melanoma of the nose. There is a cutaneous lesion below the nose and above the lips. Oropharynx is with dentures upper and lower. The tongue is with decreased papillation. Lymphatics: There is no cervical, supraclavicular, or axillary nodes. Lungs: Relatively clear. Cardiac: Regular rhythm. Abdomen: Soft. No organomegaly. No masses. Genitourinary: Testes descended. Uncircumcised male. Extremities: No significant edema. LABORATORY DATA: On admission, white count 2.3 and 1.8. Hemoglobin 5.6, 7.3 after 2 units of packed cells. Hematocrit 16.6, 21.2 after 2 packed cells. MCV 98 and 93. Platelets 251 and 222,000. 8 polys and 20 polys, respectively with 80% lymphocytes and 76% lymphocytes. Peripheral smear reviewed. Decreased white blood cells. Increased lymphocytes, a few monocytes, adequate platelets. Red blood cell morphology significant for low formation. INR 1.16. PTT 32. Chemistry: Sodium 136, chloride 102, potassium 4.4, CO2 24, BUN 28, creatinine 1.4. Creatinine clearance 48. A1c 5.6. Calcium 8.4. Magnesium 2.3. AST 17, ALT 28, alkaline phosphatase 94. CRP 8.2. BNP 4920. Protein 7.2 with albumin 3.1. Protein 6.8 with albumin 2.9. Cholesterol 112, triglycerides 118, HDL 28, LDL 73. Chest x-ray: No acute pathology. Large heart. Renal ultrasound: Normal kidneys and urinary bladder with no hydronephrosis. Small postvoid residual. Mild prostatic enlargement. IMPRESSION: This 81-year-old with past history of arteriosclerotic heart disease, coronary artery disease, diastolic congestive heart failure, status post coronary artery bypass, hypertension, hyperlipidemia, and is with profound anemia. Also neutropenic. Platelets normal. Red cell morphology reveals profoundly low and patient has reverse AG ratio raising the possibility of a dysproteinemia. PLAN: The patient will have screening tests for anemia. The patient will need stool guaiac. The patient will need flow cytometry. The patient will need protein studies of both the serum and the urine. Based upon initial screening tests, further recommendations. Thank you. OSCAR SELF M.D. [id number]
[2016-12-12] MEDS: ATORVASTATIN CA 20 MG TABLET (FP) PO SCH (21:29)
--- NOTE | 2016-12-12 22:08 | PN ---
Progress Note, Physician Chief Complaint: AWAKE ALERT THIS AFTERNOON WHEN EXAMINED SISTER ROCIO GARCIA FEELING BETTER - Current Medication List Current Medications: Active Medications Acetaminophen (Tylenol -) 650 mg PO Q6H PRN PRN Reason: FEVER OR PAIN Atorvastatin Calcium (Lipitor -) 20 mg PO HS [facility] Last Admin: 12/12/16 21:29 Dose: 20 mg Colchicine (Colcrys -) 0.6 mg PO DAILY [facility] Last Admin: 12/12/16 09:51 Dose: 0.6 mg Diazepam (Valium -) 2 mg PO Q12H PRN PRN Reason: ANXIETY Stop: 12/14/16 18:37 Methylprednisolone (Medrol -) 4 mg PO DAILY [facility] Last Admin: 12/12/16 14:01 Dose: 4 mg Pantoprazole Sodium (Protonix -) 40 mg PO DAILY [facility] Last Admin: 12/12/16 09:51 Dose: 40 mg - Objective Vital Signs: Vital Signs Temperature 98 F 12/12/16 21:00 Pulse Rate 72 12/12/16 21:00 Respiratory Rate 20 12/12/16 21:00 Blood Pressure 160/70 12/12/16 21:00 O2 Sat by Pulse Oximetry (%) 97 12/12/16 21:00 Constitutional: Yes: Mild Distress Eyes: Yes: WNL HENT: Yes: WNL Neck: Yes: WNL Cardiovascular: Yes: WNL Respiratory: Yes: WNL Gastrointestinal: Yes: WNL Musculoskeletal: Yes: WNL Extremities: Yes: WNL Edema: No Peripheral Pulses WNL: Yes Integumentary: Yes: WNL Wound/Incision: Yes: Clean/Dry Neurological: Yes: WNL ...Motor Strength: WNL Psychiatric: Yes: WNL Labs: CBC, BMP 12/12/16 05:40 12/12/16 05:40 INR, PTT INR 1.16 (0.82-1.09) H 12/11/16 14:55 Problem List - Problems (1) Acute kidney injury Code(s): N17.9 - ACUTE KIDNEY FAILURE, UNSPECIFIED (2) Anemia Code(s): D64.9 - ANEMIA, UNSPECIFIED Qualifiers: Anemia type: unspecified type Qualified Code(s): D64.9 - Anemia, unspecified (3) Shortness of breath Code(s): R06.02 - SHORTNESS OF BREATH (4) Gout attack Code(s): M10.9 - GOUT, UNSPECIFIED Qualifiers: Gout site: foot Gout etiology: unspecified cause Laterality: left Qualified Code(s): M10.9 - Gout, unspecified (5) Hx of CABG Code(s): Z95.1 - PRESENCE OF AORTOCORONARY BYPASS GRAFT (6) Weakness generalized Code(s): R53.1 - WEAKNESS (7) Melanoma Code(s): C43.9 - MALIGNANT MELANOMA OF SKIN, UNSPECIFIED Qualifiers: Melanoma location: face excluding eyelid, nose, lip, and ear Qualified Code(s): C43.30 - Malignant melanoma of unspecified part of face (8) Lung cancer Code(s): C34.90 - MALIGNANT NEOPLASM OF UNSP PART OF UNSP BRONCHUS OR LUNG Qualifiers: Laterality: unspecified laterality Lung location: unspecified part of lung Qualified Code(s): C34.90 - Malignant neoplasm of unspecified part of unspecified bronchus or lung Assessment/Plan S/P PRBC TRANSFUSION H/H IMPROVED ONCOLOGY F/U APPRECIATED PT EVAL CARDIAC AND RENAL WORKUP IN PROGRESS
[2016-12-12] MEDS: diazePAM 2 MG TABLET PO PRN (22:20)
[2016-12-13 07:32] LABS: MCH 32.1 pg (25.7-33.7); MCHC 34.7 g/dl (32.0-35.9); MEAN CELL VOLUME 92.6 fl (80-96); MEAN PLT VOLUME 6.4 fl (7.5-11.1); PLATELET COUNT 222 K/MM3 (134-434); RDW 18.6 % (11.9-15.9); WHITE BLOOD COUNT 2.5 K/mm3 (4.0-10.0)
[2016-12-13 07:37] LABS: BILIRUBIN,TOTAL 0.3 mg/dL (0.2-1.0); COCKROFT - GAULT 45.73; CREATININE 1.4 mg/dL (0.7-1.3); TOT PROT 6.6 g/dl (6.4-8.2)
[2016-12-13 07:39] LABS: ALBUMIN 2.7 g/dl (3.4-5.0); CALCIUM 8.5 mg/dL (8.5-10.1)
[2016-12-13 07:40] LABS: FREE T4 1.07 ng/dl (0.76-1.16)
[2016-12-13 07:45] LABS: THYROID STIMULATING HORMONE 2.53 uIU/ml (0.358-3.74)
[2016-12-13] MEDS: methylPREDNISolone 4 MG TABLET PO SCH (09:12)
[2016-12-13] MEDS: COLCHICINE 0.6 MG TABLET (FP) PO SCH (09:12)
[2016-12-13] MEDS: PANTOPRAZOLE 40 MG TABLET (FP) PO SCH (09:12)
--- NOTE | 2016-12-13 09:14 | PN ---
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 -Most kelly episodes occur at night while sleeping -no pauses >3 seconds. - Current Medication List Current Medications: Active Medications Acetaminophen (Tylenol -) 650 mg PO Q6H PRN PRN Reason: FEVER OR PAIN Atorvastatin Calcium (Lipitor -) 20 mg PO HS [facility] Last Admin: 12/12/16 21:29 Dose: 20 mg Colchicine (Colcrys -) 0.6 mg PO DAILY [facility] Last Admin: 12/13/16 09:12 Dose: 0.6 mg Diazepam (Valium -) 2 mg PO Q12H PRN PRN Reason: ANXIETY Stop: 12/14/16 18:37 Last Admin: 12/12/16 22:20 Dose: 2 mg Methylprednisolone (Medrol -) 4 mg PO DAILY [facility] Last Admin: 12/13/16 09:12 Dose: 4 mg Pantoprazole Sodium (Protonix -) 40 mg PO DAILY [facility] Last Admin: 12/13/16 09:12 Dose: 40 mg - Objective Vital Signs: Vital Signs Temperature 98 F 12/13/16 06:54 Pulse Rate 64 12/13/16 06:54 Respiratory Rate 20 12/13/16 06:54 Blood Pressure 140/60 12/13/16 06:54 O2 Sat by Pulse Oximetry (%) 97 12/12/16 21:00 Constitutional: Yes: No Distress Eyes: Yes: Conjunctiva Clear Cardiovascular: Yes: Regular Rate and Rhythm Respiratory: Yes: CTA Bilaterally Gastrointestinal: Yes: Soft, Abdomen, Obese Edema: No Neurological: Yes: Alert, Oriented ...Motor Strength: WNL Labs: CBC, BMP 12/13/16 05:35 12/13/16 05:35 INR, PTT INR 1.16 (0.82-1.09) H 12/11/16 14:55 - ....Imaging EKG: Image Reviewed Other: Other (Echo: moderate AR, otherwise Nl LVEF.) Assessment/Plan Assessment/Plan 81 year old man with a history of HTN, HLD, CAD s/p CABG, Chronic diastolic CHF , melonoma of nose, Lung CA s/p nodule resection, gout, sent to ER from ENT office for hypotension, dizziness. Found to be severely anemic. Recent syncopal episode reported. Dizziness/Hypotension/Syncope-likely secondary to severe symptomatic anemia: -Tele with predominantly nocturnal episodes Wenkebach, no sig pauses to explain sx. -H/H improved with PRBCs -anemia work up in progress, heme/onc evaluation in process -echo w/ normal LV fxn and moderate AR would not have caused syncope -Carotid US with moderate disease, does not appear to have hemodynamically significant stenosis. CAD h/o CABG-stable -pt last seen in office 06/2016 refused nuclear stress test at that time -holding metoprolol, losartan, lasix for now for hypotension and intravascular depletion -hold ASA until etiology of anemia determined -Would hold beta tracy in light of Wenkebach episodes -Can resume Losartan when ok with renal, creatinine seems stable at 1.4 HTN-low normal, symptomatic on admission -Possibly resume Losartan, see above -Hold beta tracy (Wenkebach on tele) HLD -cont statin Chronic diastolic CHF-euvolemic, intravascularly depleted -hold lasix for now, re-introduce as tolerates
[2016-12-13 09:24] LABS: PLATELET ESTIMATE ADEQUATE (NORMAL)
--- NOTE | 2016-12-13 10:39 | PN ---
Progress Note, Physician Chief Complaint: comfortable, stable, no chest pain or sob - Current Medication List Current Medications: Active Medications Acetaminophen (Tylenol -) 650 mg PO Q6H PRN PRN Reason: FEVER OR PAIN Atorvastatin Calcium (Lipitor -) 20 mg PO HS [facility] Last Admin: 12/12/16 21:29 Dose: 20 mg Colchicine (Colcrys -) 0.6 mg PO DAILY [facility] Last Admin: 12/13/16 09:12 Dose: 0.6 mg Diazepam (Valium -) 2 mg PO Q12H PRN PRN Reason: ANXIETY Stop: 12/14/16 18:37 Last Admin: 12/12/16 22:20 Dose: 2 mg Methylprednisolone (Medrol -) 4 mg PO DAILY [facility] Last Admin: 12/13/16 09:12 Dose: 4 mg Pantoprazole Sodium (Protonix -) 40 mg PO DAILY [facility] Last Admin: 12/13/16 09:12 Dose: 40 mg - Objective Vital Signs: Vital Signs Temperature 97.9 F 12/13/16 10:15 Pulse Rate 73 12/13/16 10:15 Respiratory Rate 18 12/13/16 10:15 Blood Pressure 145/65 12/13/16 10:15 O2 Sat by Pulse Oximetry (%) 97 12/13/16 09:00 Constitutional: Yes: No Distress Eyes: Yes: WNL HENT: Yes: WNL Neck: Yes: WNL Cardiovascular: Yes: WNL Respiratory: Yes: WNL Gastrointestinal: Yes: WNL Genitourinary: Yes: WNL Breast(s): Yes: WNL Musculoskeletal: Yes: WNL Extremities: Yes: WNL Edema: No Peripheral Pulses WNL: Yes Integumentary: Yes: WNL Wound/Incision: Yes: Clean/Dry Neurological: Yes: WNL ...Motor Strength: WNL Psychiatric: Yes: WNL Labs: CBC, BMP 12/13/16 05:35 12/13/16 05:35 INR, PTT INR 1.16 (0.82-1.09) H 12/11/16 14:55 Problem List - Problems (1) Acute kidney injury Code(s): N17.9 - ACUTE KIDNEY FAILURE, UNSPECIFIED (2) Anemia Code(s): D64.9 - ANEMIA, UNSPECIFIED Qualifiers: Anemia type: unspecified type Qualified Code(s): D64.9 - Anemia, unspecified (3) Shortness of breath Code(s): R06.02 - SHORTNESS OF BREATH (4) Gout attack Code(s): M10.9 - GOUT, UNSPECIFIED Qualifiers: Gout site: foot Gout etiology: unspecified cause Laterality: left Qualified Code(s): M10.9 - Gout, unspecified (5) Hx of CABG Code(s): Z95.1 - PRESENCE OF AORTOCORONARY BYPASS GRAFT (6) Weakness generalized Code(s): R53.1 - WEAKNESS (7) Melanoma Code(s): C43.9 - MALIGNANT MELANOMA OF SKIN, UNSPECIFIED Qualifiers: Melanoma location: face excluding eyelid, nose, lip, and ear Qualified Code(s): C43.30 - Malignant melanoma of unspecified part of face (8) Lung cancer Code(s): C34.90 - MALIGNANT NEOPLASM OF UNSP PART OF UNSP BRONCHUS OR LUNG Qualifiers: Laterality: unspecified laterality Lung location: unspecified part of lung Qualified Code(s): C34.90 - Malignant neoplasm of unspecified part of unspecified bronchus or lung Assessment/Plan AWAITING WORKUP WITH ONCOLOGY WILL NEED ANOTHER TRANSFUSION PRBC CHECK CXR FOR FLUID OVERLOAD CHF LASIX IN BETWEEN TRANSFUSIONS CARDIOLOGY AND RENAL WORKUP APPRECIATED OUTPATIENT F/U WITH PSYCHIATRIC
[2016-12-13] MEDS ORDERED: FUROSEMIDE 40 MG/4 ML INJECTABLE VIAL IVPUSH SCH (10:40)
--- NOTE | 2016-12-13 11:48 | PN ---
Progress Note, Physician History of Present Illness: PULMONARY ALERT,NAD,-SOB AT REST,-CP. - Current Medication List Current Medications: Active Medications Acetaminophen (Tylenol -) 650 mg PO Q6H PRN PRN Reason: FEVER OR PAIN Atorvastatin Calcium (Lipitor -) 20 mg PO HS [facility] Last Admin: 12/12/16 21:29 Dose: 20 mg Colchicine (Colcrys -) 0.6 mg PO DAILY [facility] Last Admin: 12/13/16 09:12 Dose: 0.6 mg Diazepam (Valium -) 2 mg PO Q12H PRN PRN Reason: ANXIETY Stop: 12/14/16 18:37 Last Admin: 12/12/16 22:20 Dose: 2 mg Furosemide (Lasix Injection -) 40 mg IVPUSH [employer] [facility] Stop: 12/13/16 16:00 Methylprednisolone (Medrol -) 4 mg PO DAILY [facility] Last Admin: 12/13/16 09:12 Dose: 4 mg Pantoprazole Sodium (Protonix -) 40 mg PO DAILY [facility] Last Admin: 12/13/16 09:12 Dose: 40 mg - Objective Vital Signs: Vital Signs Temperature 97.9 F 12/13/16 10:15 Pulse Rate 73 12/13/16 10:15 Respiratory Rate 18 12/13/16 10:15 Blood Pressure 145/65 12/13/16 10:15 O2 Sat by Pulse Oximetry (%) 97 12/13/16 09:00 Constitutional: Yes: Well Nourished, Calm Eyes: Yes: WNL HENT: Yes: WNL Neck: Yes: WNL Cardiovascular: Yes: Regular Rate and Rhythm, S1, S2 Respiratory: Yes: Diminished Gastrointestinal: Yes: Normal Bowel Sounds, Soft Extremities: Yes: WNL Edema: No Labs: CBC, BMP 12/13/16 05:35 12/13/16 05:35 INR, PTT INR 1.16 (0.82-1.09) H 12/11/16 14:55 Problem List - Problems (1) Acute kidney injury Code(s): N17.9 - ACUTE KIDNEY FAILURE, UNSPECIFIED (2) Anemia Code(s): D64.9 - ANEMIA, UNSPECIFIED Qualifiers: Anemia type: unspecified type Qualified Code(s): D64.9 - Anemia, unspecified (3) Chronic diastolic (congestive) heart failure Code(s): I50.32 - CHRONIC DIASTOLIC (CONGESTIVE) HEART FAILURE (4) Dizziness Code(s): R42 - DIZZINESS AND GIDDINESS (5) HLD (hyperlipidemia) Code(s): E78.5 - HYPERLIPIDEMIA, UNSPECIFIED (6) HTN (hypertension) Code(s): I10 - ESSENTIAL (PRIMARY) HYPERTENSION (7) Hx of CABG Code(s): Z95.1 - PRESENCE OF AORTOCORONARY BYPASS GRAFT (8) Lung cancer Code(s): C34.90 - MALIGNANT NEOPLASM OF UNSP PART OF UNSP BRONCHUS OR LUNG Qualifiers: Laterality: unspecified laterality Lung location: unspecified part of lung Qualified Code(s): C34.90 - Malignant neoplasm of unspecified part of unspecified bronchus or lung (9) Melanoma Code(s): C43.9 - MALIGNANT MELANOMA OF SKIN, UNSPECIFIED Qualifiers: Melanoma location: face excluding eyelid, nose, lip, and ear Qualified Code(s): C43.30 - Malignant melanoma of unspecified part of face (10) Shortness of breath Code(s): R06.02 - SHORTNESS OF BREATH (11) Syncope Code(s): R55 - SYNCOPE AND COLLAPSE (12) Weakness generalized Code(s): R53.1 - WEAKNESS Assessment/Plan IMP DYSPNEA,HYPOTENSION SECONDARY TO SEVERE ANEMIA ANEMIA,NEUTROPENIA DIASTOLIC HF ASHD S/P CABG H/O LUNG CA S/P RESECTION HLD H/O MELANOMA GOUT CARDIAC ARRHYTHMIAS PREDOMINANTLY AT NIGHT ?OSAS PLAN TRANSFUSE MONITOR H+H HEME W/U IN PROGRESS O2 PRN MONITOR LYTES,RENAL FUNCTION CONSIDER SLEEP STUDIES OUTPATIENT DR HANSEN Problem List - Problems (1) Acute kidney injury Code(s): N17.9 - ACUTE KIDNEY FAILURE, UNSPECIFIED (2) Anemia Code(s): D64.9 - ANEMIA, UNSPECIFIED Qualifiers: Anemia type: unspecified type Qualified Code(s): D64.9 - Anemia, unspecified (3) Chronic diastolic (congestive) heart failure Code(s): I50.32 - CHRONIC DIASTOLIC (CONGESTIVE) HEART FAILURE (4) Dizziness Code(s): R42 - DIZZINESS AND GIDDINESS (5) HLD (hyperlipidemia) Code(s): E78.5 - HYPERLIPIDEMIA, UNSPECIFIED (6) HTN (hypertension) Code(s): I10 - ESSENTIAL (PRIMARY) HYPERTENSION (7) Hx of CABG Code(s): Z95.1 - PRESENCE OF AORTOCORONARY BYPASS GRAFT (8) Lung cancer Code(s): C34.90 - MALIGNANT NEOPLASM OF UNSP PART OF UNSP BRONCHUS OR LUNG Qualifiers: Laterality: unspecified laterality Lung location: unspecified part of lung Qualified Code(s): C34.90 - Malignant neoplasm of unspecified part of unspecified bronchus or lung (9) Melanoma Code(s): C43.9 - MALIGNANT MELANOMA OF SKIN, UNSPECIFIED Qualifiers: Melanoma location: face excluding eyelid, nose, lip, and ear Qualified Code(s): C43.30 - Malignant melanoma of unspecified part of face (10) Shortness of breath Code(s): R06.02 - SHORTNESS OF BREATH (11) Syncope Code(s): R55 - SYNCOPE AND COLLAPSE (12) Weakness generalized Code(s): R53.1 - WEAKNESS
--- NOTE | 2016-12-13 12:50 | PN ---
Progress Note, Physician History of Present Illness: Pt seen and examined at bedside. He is awake and alert. He appears comfortable. - Current Medication List Current Medications: Active Medications Acetaminophen (Tylenol -) 650 mg PO Q6H PRN PRN Reason: FEVER OR PAIN Atorvastatin Calcium (Lipitor -) 20 mg PO HS [facility] Last Admin: 12/12/16 21:29 Dose: 20 mg Colchicine (Colcrys -) 0.6 mg PO DAILY [facility] Last Admin: 12/13/16 09:12 Dose: 0.6 mg Diazepam (Valium -) 2 mg PO Q12H PRN PRN Reason: ANXIETY Stop: 12/14/16 18:37 Last Admin: 12/12/16 22:20 Dose: 2 mg Furosemide (Lasix Injection -) 40 mg IVPUSH [employer] [facility] Stop: 12/13/16 16:00 Methylprednisolone (Medrol -) 4 mg PO DAILY [facility] Last Admin: 12/13/16 09:12 Dose: 4 mg Pantoprazole Sodium (Protonix -) 40 mg PO DAILY [facility] Last Admin: 12/13/16 09:12 Dose: 40 mg - Objective Vital Signs: Vital Signs Temperature 97.9 F 12/13/16 10:15 Pulse Rate 73 12/13/16 10:15 Respiratory Rate 18 12/13/16 10:15 Blood Pressure 145/65 12/13/16 10:15 O2 Sat by Pulse Oximetry (%) 97 12/13/16 09:00 Constitutional: Yes: Calm Eyes: Yes: Conjunctiva Clear HENT: Yes: Atraumatic Neck: Yes: Supple Cardiovascular: Yes: S1, S2 Respiratory: Yes: CTA Bilaterally Genitourinary: Yes: WNL Musculoskeletal: Yes: WNL Edema: No Neurological: Yes: Oriented Psychiatric: Yes: Oriented Labs: CBC, BMP 12/13/16 05:35 12/13/16 05:35 INR, PTT INR 1.16 (0.82-1.09) H 12/11/16 14:55 - ....Imaging Ultrasound: Report Reviewed Problem List - Problems (1) Acute kidney injury Code(s): N17.9 - ACUTE KIDNEY FAILURE, UNSPECIFIED (2) Anemia Code(s): D64.9 - ANEMIA, UNSPECIFIED Qualifiers: Anemia type: unspecified type Qualified Code(s): D64.9 - Anemia, unspecified (3) Dizziness Code(s): R42 - DIZZINESS AND GIDDINESS (4) HLD (hyperlipidemia) Code(s): E78.5 - HYPERLIPIDEMIA, UNSPECIFIED (5) HTN (hypertension) Code(s): I10 - ESSENTIAL (PRIMARY) HYPERTENSION (6) Hx of CABG Code(s): Z95.1 - PRESENCE OF AORTOCORONARY BYPASS GRAFT (7) Lung cancer Code(s): C34.90 - MALIGNANT NEOPLASM OF UNSP PART OF UNSP BRONCHUS OR LUNG Qualifiers: Laterality: unspecified laterality Lung location: unspecified part of lung Qualified Code(s): C34.90 - Malignant neoplasm of unspecified part of unspecified bronchus or lung (8) Melanoma Code(s): C43.9 - MALIGNANT MELANOMA OF SKIN, UNSPECIFIED Qualifiers: Melanoma location: face excluding eyelid, nose, lip, and ear Qualified Code(s): C43.30 - Malignant melanoma of unspecified part of face (9) Shortness of breath Code(s): R06.02 - SHORTNESS OF BREATH Assessment/Plan Current Medications Generic Name Dose Route Start Last Admin Trade Name Freq PRN Reason Stop Dose Admin Acetaminophen 650 mg 12/11/16 18:37 Tylenol - PO Q6H PRN FEVER OR PAIN Atorvastatin Calcium 20 mg 12/11/16 22:00 12/12/16 21:29 Lipitor - PO 20 mg HS [facility] Administration Colchicine 0.6 mg 12/11/16 18:45 12/13/16 09:12 Colcrys - PO 0.6 mg DAILY [facility] Administration Diazepam 2 mg 12/11/16 18:37 12/12/16 22:20 Valium - PO 12/14/16 18:37 2 mg Q12H PRN Administration ANXIETY Furosemide 40 mg 12/13/16 10:40 Lasix Injection - IVPUSH 12/13/16 16:00 [employer] [facility] Methylprednisolone 4 mg 12/11/16 18:45 12/13/16 09:12 Medrol - PO 4 mg DAILY [facility] Administration Pantoprazole Sodium 40 mg 12/11/16 18:45 12/13/16 09:12 Protonix - PO 40 mg DAILY [facility] Administration Impression 1. NUBIA 2. anemia 3. leukopenia 4. hx lung cancer 5. hx melanoma 6. shortness of breath 7. gout 8. CAD 9. hypotension Plan - renal function is stable - pt to get PRBC, will hold off fluids - recommend not starting lasix - follow up UA - renal ultrasound negative for hydro - pt had a FENa of 0.25 percent, consistent with pre-renal disease - oncology follow up - repeat labs in am - will follow - anemia and hypotension can both contribute to NUBIA Dr Bray
[2016-12-13] MEDS ORDERED: FUROSEMIDE 40 MG/4 ML INJECTABLE VIAL ONE (15:31)
--- NOTE | 2016-12-13 20:07 | CON.ENT ---
Consult Consult Specialty:: ENT Reason for Consultation:: ears - History of Present Illness Chief Complaint: hearing loss, ear discomfort History of Present Illness: pt admitted 2 d ago from my office with dizziness and shortness of breath, found to have severe anemia and neutropenia clinically improving, presently receiving fourth unit of PRBC, has been OOB, less dyspnea, balance improved he also reports a 30 pound weight loss /2 months recently treated for external otitis and hearing loss presently ears feel better, no pain hx nasal melanoma, s/p [place] many [place] [facility] [place] - History Source History Provided By: Patient, Medical Record Limitations to Obtaining History: No Limitations - Past Medical History Cardio/Vascular: Yes: CAD, HTN, Hyperlipdemia Pulmonary: Yes: Cancer Rheumatology: Yes: Gout - Past Surgical History Past Surgical History: Yes: CABG - Alcohol/Substance Use Hx Alcohol Use: No - Smoking History Smoking history: Former smoker Have you smoked in the past 12 months: No - Social History History of Recent Travel: No Home Medications - Allergies Allergies/Adverse Reactions: Allergies Allergy/AdvReac Type Severity Reaction Status Date / Time No Known Allergies Allergy Verified 12/11/16 13:46 - Home Medications Home Medications: Ambulatory Orders Allopurinol [Zyloprim -] 100 mg PO DAILY 12/11/16 Aspirin [ASA -] 81 mg PO DAILY 12/11/16 Atorvastatin Ca [Lipitor] 40 mg PO HS 12/11/16 Colchicine 0.6 mg PO DAILY 12/11/16 Diazepam [Valium] 2 mg PO PRN 12/11/16 Furosemide [Lasix] 40 mg PO DAILY 12/11/16 Losartan Potassium 50 mg PO DAILY 12/11/16 Metoprolol Tartrate 25 mg PO DAILY 12/11/16 Potassium Chloride [Klor-Con 10] 10 mg PO DAILY 12/11/16 Review of Systems - Review of Systems Constitutional: reports: Weakness Physical Exam-ENT Vital Signs: Vital Signs Temperature 98.4 F 12/13/16 15:34 Pulse Rate 60 12/13/16 15:34 Respiratory Rate 18 12/13/16 15:34 Blood Pressure 134/49 12/13/16 15:34 O2 Sat by Pulse Oximetry (%) 97 12/13/16 09:00 Constitutional: Yes: No Distress, Calm Head: Yes: WNL Face: Yes: WNL Eyes: Yes: WNL Nose: Yes: Other (dry, saddle deformity of dorum, no bleeding) Nasal Passage: Yes: Other (sl crusting) Outer Ear: Yes: WNL Ear Canal: Yes: WNL Tympanic Membrane: Yes: WNL Respiratory: Yes: WNL Imaging - Results Chest X-ray: Report Reviewed, Image Reviewed Problem List - Problems (1) Dizziness Assessment/Plan: improved fter treatment for severe anemia carotid doppler done additional workup considered if remains symptomatic after normalizing hemoglobin Code(s): R42 - DIZZINESS AND GIDDINESS (2) Shortness of breath Assessment/Plan: improved continue medical evaluation and management Code(s): R06.02 - SHORTNESS OF BREATH (3) Hearing loss Assessment/Plan: known hearing loss worse right ear recently treated otitis externa with improvement outpatient management will continue after treatment of acute medical problems Code(s): H91.90 - UNSPECIFIED HEARING LOSS, UNSPECIFIED EAR Qualifiers: Hearing loss type: sensorineural Laterality: bilateral Qualified Code(s): H90.3 - Sensorineural hearing loss, bilateral
[2016-12-13 22:06] LABS: URINE APPEARANCE CLEAR; URINE BILIRUBIN NEGATIVE (NEGATIVE); URINE BLOOD NEGATIVE (NEGATIVE); URINE COLOR COLORLESS; URINE GLUCOSE (UA) NEGATIVE (NEGATIVE); URINE KETONE NEGATIVE (NEGATIVE); URINE LEUK ESTERASE NEGATIVE (NEGATIVE); URINE NITRITE NEGATIVE (NEGATIVE); URINE PROTEIN NEGATIVE (NEGATIVE); URINE UROBILINOGEN NEGATIVE E.U./dl (0.2-1.0)
[2016-12-13] MEDS: ATORVASTATIN CA 20 MG TABLET (FP) PO SCH (22:10)
[2016-12-13] MEDS: diazePAM 2 MG TABLET PO PRN (22:10)
[2016-12-14 07:57] LABS: MCH 31.6 pg (25.7-33.7); MCHC 35.1 g/dl (32.0-35.9); MEAN CELL VOLUME 90.1 fl (80-96); MEAN PLT VOLUME 6.5 fl (7.5-11.1); PLATELET COUNT 224 K/MM3 (134-434); RDW 17.1 % (11.9-15.9); WHITE BLOOD COUNT 2.8 K/mm3 (4.0-10.0)
[2016-12-14 08:04] LABS: CALCIUM 8.5 mg/dL (8.5-10.1); COCKROFT - GAULT 45.46; CREATININE 1.4 mg/dL (0.7-1.3)
[2016-12-14 08:07] LABS: HAPTOGLOBIN 396 mg/dL (34-200)
--- NOTE | 2016-12-14 09:17 | PN ---
Progress Note, Physician Chief Complaint: seen and examined no distress Required transfusion again yesterday Guaiac negative - Current Medication List Current Medications: Active Medications Acetaminophen (Tylenol -) 650 mg PO Q6H PRN PRN Reason: FEVER OR PAIN Atorvastatin Calcium (Lipitor -) 20 mg PO HS [facility] Last Admin: 12/13/16 22:10 Dose: 20 mg Colchicine (Colcrys -) 0.6 mg PO DAILY [facility] Last Admin: 12/13/16 09:12 Dose: 0.6 mg Diazepam (Valium -) 2 mg PO Q12H PRN PRN Reason: ANXIETY Stop: 12/14/16 18:37 Last Admin: 12/13/16 22:10 Dose: 2 mg Methylprednisolone (Medrol -) 4 mg PO DAILY [facility] Last Admin: 12/13/16 09:12 Dose: 4 mg Pantoprazole Sodium (Protonix -) 40 mg PO DAILY [facility] Last Admin: 12/13/16 09:12 Dose: 40 mg - Objective Vital Signs: Vital Signs Temperature 97.5 F L 12/14/16 02:43 Pulse Rate 64 12/14/16 06:49 Respiratory Rate 20 12/14/16 06:49 Blood Pressure 141/72 12/14/16 06:49 O2 Sat by Pulse Oximetry (%) 97 12/13/16 21:00 Constitutional: Yes: No Distress Eyes: Yes: Conjunctiva Clear Cardiovascular: Yes: Regular Rate and Rhythm Respiratory: Yes: CTA Bilaterally Gastrointestinal: Yes: Soft (obese, non-tender) Peripheral Pulses WNL: Yes Neurological: Yes: Alert, Oriented Labs: CBC, BMP 12/14/16 05:35 12/14/16 05:35 INR, PTT INR 1.16 (0.82-1.09) H 12/11/16 14:55 Laboratory Tests 12/13/16 12/14/16 12/14/16 17:50 05:35 05:35 WBC 2.8 L Hgb 9.7 L D Hct 27.5 L D Plt Count 224 Sodium 140 Potassium 3.9 BUN 32 H D Creatinine 1.4 H Random Glucose 94 Calcium 8.5 Stool Occult Blood Negative - ....Imaging EKG: Image Reviewed (TELE: [employer] [place]- more prominently while sleeping. No sig pauses) Assessment/Plan Assessment/Plan 81 year old man with a history of HTN, HLD, CAD s/p CABG, Chronic diastolic CHF , melonoma of nose, Lung CA s/p nodule resection, gout, sent to ER from ENT office for hypotension, dizziness. Found to be severely anemic. Recent syncopal episode reported. Dizziness/Hypotension/Syncope-likely secondary to severe symptomatic anemia: requiring transfusion -Tele with predominantly nocturnal episodes Wenkebach, no sig pauses to explain sx. -anemia work up in progress, heme/onc evaluation in process -echo w/ normal LV fxn and moderate AR would not have caused syncope -Carotid US with moderate disease, does not appear to have hemodynamically significant stenosis. CAD h/o CABG-stable -pt last seen in office 06/2016 refused nuclear stress test at that time -holding metoprolol, losartan, lasix for now for hypotension and intravascular depletion -hold ASA until etiology of anemia determined -Would hold beta tracy in light of Wenkebach episodes -Can resume Losartan when ok with renal, creatinine seems stable -Plan had been for outpatient stress test to evaluate his MATA, but will hold now in setting marked anemia Chronic diastolic CHF-euvolemic, intravascularly depleted -hold lasix for now, re-introduce as tolerates/needed
[2016-12-14] MEDS: methylPREDNISolone 4 MG TABLET PO SCH (09:42)
[2016-12-14] MEDS: COLCHICINE 0.6 MG TABLET (FP) PO SCH (09:42)
[2016-12-14] MEDS: PANTOPRAZOLE 40 MG TABLET (FP) PO SCH (09:42)
--- NOTE | 2016-12-14 13:58 | PN ---
Progress Note, Physician History of Present Illness: Pt seen and examined at bedside. He is awake and alert. He denies dysuria or hematuria. - Current Medication List Current Medications: Active Medications Acetaminophen (Tylenol -) 650 mg PO Q6H PRN PRN Reason: FEVER OR PAIN Atorvastatin Calcium (Lipitor -) 20 mg PO HS [facility] Last Admin: 12/13/16 22:10 Dose: 20 mg Colchicine (Colcrys -) 0.6 mg PO DAILY [facility] Last Admin: 12/14/16 09:42 Dose: 0.6 mg Diazepam (Valium -) 2 mg PO Q12H PRN PRN Reason: ANXIETY Stop: 12/14/16 18:37 Last Admin: 12/13/16 22:10 Dose: 2 mg Methylprednisolone (Medrol -) 4 mg PO DAILY [facility] Last Admin: 12/14/16 09:42 Dose: 4 mg Pantoprazole Sodium (Protonix -) 40 mg PO DAILY [facility] Last Admin: 12/14/16 09:42 Dose: 40 mg - Objective Vital Signs: Vital Signs Temperature 98.3 F 12/14/16 13:35 Pulse Rate 64 12/14/16 13:35 Respiratory Rate 20 12/14/16 13:35 Blood Pressure 151/72 12/14/16 13:35 O2 Sat by Pulse Oximetry (%) 97 12/14/16 09:00 Constitutional: Yes: Calm Eyes: Yes: Conjunctiva Clear HENT: Yes: Atraumatic Neck: Yes: Supple Cardiovascular: Yes: S1, S2 Respiratory: Yes: CTA Bilaterally Gastrointestinal: Yes: Soft Genitourinary: Yes: WNL Musculoskeletal: Yes: WNL Edema: No Neurological: Yes: Oriented Psychiatric: Yes: Oriented Labs: CBC, BMP 12/14/16 05:35 12/14/16 05:35 INR, PTT INR 1.16 (0.82-1.09) H 12/11/16 14:55 Problem List - Problems (1) Acute kidney injury Code(s): N17.9 - ACUTE KIDNEY FAILURE, UNSPECIFIED (2) Anemia Code(s): D64.9 - ANEMIA, UNSPECIFIED Qualifiers: Anemia type: unspecified type Qualified Code(s): D64.9 - Anemia, unspecified (3) Dizziness Code(s): R42 - DIZZINESS AND GIDDINESS (4) HLD (hyperlipidemia) Code(s): E78.5 - HYPERLIPIDEMIA, UNSPECIFIED (5) HTN (hypertension) Code(s): I10 - ESSENTIAL (PRIMARY) HYPERTENSION (6) Hx of CABG Code(s): Z95.1 - PRESENCE OF AORTOCORONARY BYPASS GRAFT (7) Lung cancer Code(s): C34.90 - MALIGNANT NEOPLASM OF UNSP PART OF UNSP BRONCHUS OR LUNG Qualifiers: Laterality: unspecified laterality Lung location: unspecified part of lung Qualified Code(s): C34.90 - Malignant neoplasm of unspecified part of unspecified bronchus or lung (8) Melanoma Code(s): C43.9 - MALIGNANT MELANOMA OF SKIN, UNSPECIFIED Qualifiers: Melanoma location: face excluding eyelid, nose, lip, and ear Qualified Code(s): C43.30 - Malignant melanoma of unspecified part of face (9) Shortness of breath Code(s): R06.02 - SHORTNESS OF BREATH Assessment/Plan Current Medications Generic Name Dose Route Start Last Admin Trade Name Freq PRN Reason Stop Dose Admin Acetaminophen 650 mg 12/11/16 18:37 Tylenol - PO Q6H PRN FEVER OR PAIN Atorvastatin Calcium 20 mg 12/11/16 22:00 12/13/16 22:10 Lipitor - PO 20 mg HS [facility]ABEL Administration Colchicine 0.6 mg 12/11/16 18:45 12/14/16 09:42 Colcrys - PO 0.6 mg DAILY [facility]EL Administration Diazepam 2 mg 12/11/16 18:37 12/13/16 22:10 Valium - PO 12/14/16 18:37 2 mg Q12H PRN Administration ANXIETY Methylprednisolone 4 mg 12/11/16 18:45 12/14/16 09:42 Medrol - PO 4 mg DAILY [facility] Administration Pantoprazole Sodium 40 mg 12/11/16 18:45 12/14/16 09:42 Protonix - PO 40 mg DAILY [facility] Administration Laboratory Tests 12/13/16 21:00 Urine Color Colorless Urine Appearance Clear Urine pH 5.0 Ur Specific [place] <= 1.005 Urine Protein Negative Urine Glucose (UA) Negative Urine Ketones Negative Urine Blood Negative Urine Nitrite Negative Urine Bilirubin Negative Urine Urobilinogen Negative Ur Leukocyte Esterase Negative Impression 1. NUBIA 2. anemia 3. leukopenia 4. hx lung cancer 5. hx melanoma 6. shortness of breath 7. gout 8. CAD 9. hypotension Plan - renal function is stabilizing - pt will need outpt workup, he is eager to go home - ua reviewed, negative for blood or for protein - oncology follow up - repeat labs in am - will follow - anemia and hypotension can both contribute to NUBIA Dr Bray
--- NOTE | 2016-12-14 14:17 | PN ---
Progress Note (short form) - Note Progress Note: PULMONARY s/p 2 unit PRBC transfusion yesterday with improvement in dyspnea. No chest pain , cough or wheezing. Last Vital Signs Temp Pulse Resp BP Pulse Ox 98.3 F 64 20 151/72 97 12/14/16 13:35 12/14/16 13:35 12/14/16 13:35 12/14/16 13:35 12/14/16 09:00 Gen: NAD at rest Heart: RRR Lung: decreased breath sounds at the bases Abd: soft, nontender Ext: no edema CBC, BMP 12/14/16 05:35 12/14/16 05:35 Active Medications Acetaminophen (Tylenol -) 650 mg PO Q6H PRN PRN Reason: FEVER OR PAIN Atorvastatin Calcium (Lipitor -) 20 mg PO HS [facility] Last Admin: 12/13/16 22:10 Dose: 20 mg Colchicine (Colcrys -) 0.6 mg PO DAILY [facility] Last Admin: 12/14/16 09:42 Dose: 0.6 mg Diazepam (Valium -) 2 mg PO Q12H PRN PRN Reason: ANXIETY Stop: 12/14/16 18:37 Last Admin: 12/13/16 22:10 Dose: 2 mg Methylprednisolone (Medrol -) 4 mg PO DAILY [facility] Last Admin: 12/14/16 09:42 Dose: 4 mg Pantoprazole Sodium (Protonix -) 40 mg PO DAILY [facility] Last Admin: 12/14/16 09:42 Dose: 40 mg A/P Anemia s/p PRBC transfusions LV Diastolic Dysfunction CAD s/p CABG h/o Lung Ca Hyperlipidemia - monitor H/H - transfuse as needed - outpt PSG - DVT prophylaxis
--- NOTE | 2016-12-14 16:08 | PATH ---
Surgical Pathology Report Patient Name: PAL JARAMILLO [facility]. Rec. #: [id number] /Age/Gender: 1935 (Age: 81) / M Account: [id number] Location: 4 W TELEMETRY U Taken: 12/13/2016 Received: 12/13/2016 Reported: 12/14/2016 Physicians: Verónica Serrano M.D. Smitha Mellacheruvu, M.D. Specimen(s) Received PERIPHERAL BLOOD 2 GREEN TOPS Clinical History R/o MDS Final Diagnosis PERIPHERAL BLOOD, FLOW CYTOMETRY: Flow cytometry performed and interpreted at [place], [place] ([id number]) shows the following: Interpretation: MARKED GRANULOCYTOPENIA WITH 11% BLASTS (SEE COMMENT). Comment: The findings raise the concern for a myelodysplastic syndrome. Phenotype: Granulocytes are markedly decreased. Blasts are increased, represents an 11% of WBCs. They express CD34, CD117, partial HLA-DR, and dim CD13. Lymphocytes are proportionally increased and include polyclonal B-cells, NK-cells and immunophenotypically normal CD4+ and CD8+ T-cells. No evidence of clonal lymphoid expansion. Cytomorphology: small lymphocytes and scattered blasts. Note: the case was discussed with Dr. Fernández on 12/14/16. FISH and cytogenetics are pending; results will be reported in an addendum. Electronically Signed Jimy Gandhi M.D. Addendum Reported: 12/19/2016 Addendum Diagnosis MDS FISH STUDIES PERFORMED AND INTERPRETED AT [facility], [place] ([id number]) ARE FOLLOWS: INTERPRETATION: No evidence of deletion 5q or monosomy 5 is present. No evidence of deletion 7q or monosomy 7 is present. No evidence of trisomy 8(+8) is present. No evidence of deletion 13q14 is present. No evidence of a rearrangement of 11q23. No evidence of a deletion of the p53 (17p13) locus. No evidence of deletion 20q12 is present. Comments: The study is negative for many of the most common recurrent genetic abnormalities in Myelodysplastic Syndrome. Correlation with pending cytogenetics ([id number]) is recommended. Jimy Gandhi M.D. Addendum Reported: 12/20/2016 Addendum Diagnosis CYTOGENETIC KARYOTYPE ANALYSIS PERFORMED AND INTERPRETED AT [facility], [place], [place] ([id number]) SHOWED THE FOLLOWING: TEST RESULTS: Tissue Culture Failure. DIAGNOSTIC INTERPRETATION: This unstimulated peripheral blood specimen did not produce any analyzable metaphase cells and, therefore, chromosome analysis is not possible. A bone marrow aspirate, when clinically appropriate, is recommended. Jimy Gandhi M.D. Gross Description Received are 2 green top tubes of blood which are sent to [facility]. /12/13/2016 saudi12/13/2016
--- NOTE | 2016-12-14 17:10 | DS ---
Physical Examination Vital Signs: Vital Signs Temperature 98.3 F 12/14/16 13:35 Pulse Rate 64 12/14/16 13:35 Respiratory Rate 20 12/14/16 13:35 Blood Pressure 151/72 12/14/16 13:35 O2 Sat by Pulse Oximetry (%) 97 12/14/16 09:00 Findings/Remarks: feeling better, transfused prbc again last night Constitutional: Yes: No Distress Eyes: Yes: WNL HENT: Yes: WNL Neck: Yes: WNL Cardiovascular: Yes: WNL Respiratory: Yes: WNL Gastrointestinal: Yes: WNL Musculoskeletal: Yes: WNL Extremities: Yes: WNL Edema: No Peripheral Pulses WNL: Yes Integumentary: Yes: WNL Wound/Incision: Yes: Clean/Dry Neurological: Yes: WNL ...Motor Strength: WNL Psychiatric: Yes: WNL Labs: CBC, BMP 12/14/16 05:35 12/14/16 05:35 Discharge Summary Reason For Visit: ACUTE KIDNEY INJURY; SOB; ANEMIA Current Active Problems Acute kidney injury (Acute) Anemia (Acute) Chronic diastolic (congestive) heart failure (Acute) Dizziness (Acute) Gout attack (Acute) HLD (hyperlipidemia) (Acute) HTN (hypertension) (Acute) Hearing loss (Acute) Hx of CABG (Acute) Lung cancer (Acute) Melanoma (Acute) Shortness of breath (Acute) Syncope (Acute) Weakness generalized (Acute) Procedures: Principal: ct scan Other Procedures: transfusion/prbc with cardiac echo workup Hospital Course: admitted to cardiology floor, monitored on tele, transfused prbc, cardiac workup normal, will need to follow up with dr oseguera in 1 week for cytometry results and maite bro for oncology continuity of care Condition: Improved - Instructions Diet, Activity, Other Instructions: low fat/salt see dr brady 1 week for labs Referrals: Vonda Brady MD [Primary Care Provider] - Disposition: HOME - Home Medications Comprehensive Discharge Medication List: Ambulatory Orders Allopurinol [Zyloprim -] 100 mg PO DAILY 12/11/16 Aspirin [ASA -] 81 mg PO DAILY 12/11/16 Atorvastatin Ca [Lipitor] 40 mg PO HS 12/11/16 Colchicine 0.6 mg PO DAILY 12/11/16 Diazepam [Valium] 2 mg PO PRN 12/11/16 Furosemide [Lasix] 40 mg PO DAILY 12/11/16 Losartan Potassium 50 mg PO DAILY 12/11/16 Metoprolol Tartrate 25 mg PO DAILY 12/11/16 Potassium Chloride [Klor-Con 10] 10 mg PO DAILY 12/11/16 Acetaminophen [Tylenol .Regular Strength -] 650 mg PO Q6H PRN #0 tablet Colchicine [Colcrys -] 0.6 mg PO DAILY #30 tablet 12/14/16 Diazepam [Valium] 2 mg PO Q12H PRN #0 tablet MDD 2 12/14/16
--- NOTE | 2016-12-14 18:15 | PN ---
Progress Note (short form) - Note Progress Note: flow cytometry 11% blasts discussed with patient and sister in great detail need to r/o MDS versus AML PAtient wants workup including BMBX to be done at [facility] [place] , where he has been seeing Dr. De La Rosa Will await final path result and will discuss with DR. de la rosa regarding his flow findings to expedite his w/u
[2016-12-14] MEDS ORDERED: diazePAM 2 MG TABLET PO PRN (22:22)
[2016-12-14] MEDS: ATORVASTATIN CA 20 MG TABLET (FP) PO SCH (22:30)
[2016-12-15 00:07] LABS: A/G RATIO 0.9 (0.7-1.7); ALBUMIN 2.8 g/dL (2.9-4.4); ALPHA-1-GLOBULIN 0.4 g/dL (0.0-0.4); GAMMA GLOBULIN 0.9 g/dL (0.4-1.8); GLOBULIN, TOTAL 3.5 g/dL (2.2-3.9); M-SPIKE Not Observed g/dL (Not Observed); TOTAL PROTEIN 6.3 g/dL (6.0-8.5)
[2016-12-15 07:54] LABS: CALCIUM 8.5 mg/dL (8.5-10.1); COCKROFT - GAULT 58.2; CREATININE 1.1 mg/dL (0.7-1.3)
--- NOTE | 2016-12-15 09:03 | PN ---
Progress Note, Physician Chief Complaint: no complaints Heme input noted Refused bone marrow biopsy, wants to discuss w/ Onc at [facility] [place] - Current Medication List Current Medications: Active Medications Acetaminophen (Tylenol -) 650 mg PO Q6H PRN PRN Reason: FEVER OR PAIN Atorvastatin Calcium (Lipitor -) 20 mg PO HS [facility] Last Admin: 12/14/16 22:30 Dose: 20 mg Colchicine (Colcrys -) 0.6 mg PO DAILY [facility] Last Admin: 12/14/16 09:42 Dose: 0.6 mg Diazepam (Valium -) 2 mg PO Q12H PRN PRN Reason: ANXIETY Last Admin: 12/14/16 22:30 Dose: 2 mg Pantoprazole Sodium (Protonix -) 40 mg PO DAILY [facility] Last Admin: 12/14/16 09:42 Dose: 40 mg - Objective Vital Signs: Vital Signs Temperature 97.2 F L 12/15/16 05:51 Pulse Rate 64 12/15/16 05:51 Respiratory Rate 20 12/15/16 05:51 Blood Pressure 146/62 12/15/16 05:51 O2 Sat by Pulse Oximetry (%) 95 12/14/16 21:00 Constitutional: Yes: No Distress Cardiovascular: Yes: Regular Rate and Rhythm Respiratory: Yes: CTA Bilaterally Gastrointestinal: Yes: Soft (non-tender) Edema: No Neurological: Yes: Alert, Oriented ...Motor Strength: WNL Labs: CBC, BMP 12/14/16 05:35 12/15/16 05:35 INR, PTT INR 1.16 (0.82-1.09) H 12/11/16 14:55 Laboratory Tests 12/14/16 12/15/16 05:35 05:35 WBC 2.8 L Hgb 9.7 L D Hct 27.5 L D Plt Count 224 Sodium 138 Potassium 3.9 BUN 31 H Creatinine 1.1 D Assessment/Plan Assessment/Plan 81 year old man with a history of HTN, HLD, CAD s/p CABG, Chronic diastolic CHF , melonoma of nose, Lung CA s/p nodule resection, gout, sent to ER from ENT office for hypotension, dizziness. Found to be severely anemic. Recent syncopal episode reported. Dizziness/Hypotension/Syncope-likely secondary to severe symptomatic anemia: requiring transfusion -Tele with predominantly nocturnal episodes Wenkebach, no sig pauses to explain sx. -anemia work up in progress, heme/onc evaluation in process -echo w/ normal LV fxn and moderate AR would not have caused syncope -Carotid US with moderate disease, does not appear to have hemodynamically significant stenosis. CAD h/o CABG-stable -pt last seen in office 06/2016 refused nuclear stress test at that time -holding metoprolol, losartan, lasix for now for hypotension and intravascular depletion -hold ASA until etiology of anemia determined -Would hold beta tracy in light of Wenkebach episodes -Can resume Losartan when ok with renal, creatinine seems stable -Plan had been for outpatient stress test to evaluate his MATA, but will hold now in setting marked anemia Chronic diastolic CHF-euvolemic, intravascularly depleted -hold lasix for now, re-introduce as tolerates/needed
[2016-12-15] MEDS: COLCHICINE 0.6 MG TABLET (FP) PO SCH (10:13)
[2016-12-15] MEDS: PANTOPRAZOLE 40 MG TABLET (FP) PO SCH (10:13)
[2016-12-15 11:01] LABS: MCH 31.5 pg (25.7-33.7); MCHC 34.6 g/dl (32.0-35.9); MEAN CELL VOLUME 90.9 fl (80-96); MEAN PLT VOLUME 6.3 fl (7.5-11.1); PLATELET COUNT 206 K/MM3 (134-434); RDW 16.9 % (11.9-15.9); WHITE BLOOD COUNT 2.8 K/mm3 (4.0-10.0)
[2016-12-15 13:39] LABS: PLATELET ESTIMATE ADEQUATE (NORMAL)
--- NOTE | 2016-12-15 14:26 | PN ---
Progress Note (short form) - Note Progress Note: ID Full note dictated Afebrile Selected Entries 12/15/16 12:15 Temperature 97.5 F L Pulse Rate 89 Respiratory 20 Rate Blood Pressure 144/63 Exam Phlebitis left antecubital area no lymhangitis or abscess seen Microbiology 12/13/16 20:00 Urine - Urine Clean Catch Urine Culture - Final NO GROWTH OBTAINED Laboratory Tests 12/15/16 12/15/16 05:35 06:00 WBC 2.8 L Hgb 9.6 L Hct 27.8 L Plt Count 206 BUN 31 H Creatinine 1.1 D Assessment Phlebititis as above Plan Warm soaks at home No antibiotics Blood cultures drawn today follow up Deysi [facility] Problem List - Problems (1) Phlebitis after infusion Code(s): T80.1XXA - VASCULAR COMP FOL INFUSN, TRANFS AND THERAPUTC INJECT, INIT
[2016-12-15 15:21] VITALS: BP 160/62; PULSE 68; TEMP 97.9
--- NOTE | 2016-12-15 23:31 | PN ---
Progress Note (short form) - Note Progress Note: Patient seen and examined feels well. anxious to leave. Last Vital Signs Temp Pulse Resp BP Pulse Ox 97.9 F 68 20 160/62 97 12/15/16 15:19 12/15/16 15:19 12/15/16 15:19 12/15/16 15:19 12/15/16 09:00 Cor: RSR, No murmurs, No gallops Lungs: Clear to P&A Abd: Soft, Normal bowel sounds, No organomegaly Ext:No significant edema Lt. extremity ---iv site erythema Abnormal Lab Results 12/11/16 16:40 Crossmatch See Detail meds reviewed a/p flow cytometry 11% blasts discussed with patient and sister in great detail need to r/o MDS versus AML PAtient wants workup including [place] [facility] [place] he [place] been seeing Dr. De La Rosa spoke ith dr. ryan nurse who will expedite [facility]appointment at [facility] there will get ID consult regarding cellulitis, prior to discharge check cultures
--- NOTE | 2016-12-16 06:36 | CONS ---
DATE OF CONSULTATION: DATE OF DICTATION: 12/15/2016 HISTORY OF PRESENT ILLNESS: Briefly, this is an 81-year-old male with multiple medical problems, including coronary artery disease, lung cancer, status post nodule resection, and melanoma of the nose, who was sent to the ER originally for hypotension and dizziness. He was admitted for further evaluation of syncope and seen initially in consultation by Dr. Ryan. He was noted to be anemic of unknown etiology and leukopenic. He has been seen by Dr. Barakat on December 12 with the possibility of a dysproteinemia raised. Laboratory studies have been ordered. He has been afebrile and I am asked to see him today as he developed an IV catheter-related phlebitis in the left antecubital area essentially as he is being readied to be discharged. He denies any systemic complaints. PAST MEDICAL HISTORY: As noted above. CURRENT MEDICATIONS: Lipitor, Protonix. ALLERGIES: None known. SOCIAL HISTORY: Former smoker. No history of alcohol abuse. FAMILY HISTORY: Reviewed. Noncontributory. REVIEW OF SYSTEMS: All systems reviewed and noncontributory. PHYSICAL EXAMINATION:General: He was a pleasant, alert male in no acute distress. Vital Signs: Temperature 97.5, pulse 89, blood pressure 144/63, respirations 20. Neck: Supple. No adenopathy. Lungs: Clear to P & A. Heart: S1, S2. Regular rhythm. No audible murmur. Abdomen: Soft, nontender, without hepatosplenomegaly. Extremities: Without clubbing, cyanosis, or edema. Area of erythema, induration with minimal tenderness in the left antecubital area. No purulent drainage or lymphangitis noted. LABORATORY DATA: The white count 2.8, hemoglobin 9.6, platelets 206. BUN 31, creatinine 1.1. ASSESSMENT: An 81-year-old male admitted for syncope workup found to be anemic with workup for possible dysproteinemia in progress. Need to rule out myelodysplastic syndrome. Bone marrow [facility] at [facility]. He has a phlebitis in the left antecubital area which right now can be managed conservatively with warm soaks. No antibiotics needed. Blood cultures had already been drawn, but I do not see a reason to hold up his discharge at this time. Blood cultures can be followed up tomorrow. SHAN DAVIES M.D. YOUSIF/[id number]
== END 2016-12-15 16:25 | disposition home or self-care (01) | DRG 812 ==
LOC: JER 13:42 → JERBED 16:27 → J4W 12-12 02:11
PROVIDERS: ADMIT Family Medicine; ATTEND Family Medicine
PROC: 30233N1 Transfusion of Nonautologous Red Blood Cells into Peripheral Vein, Percutaneous Approach (ICD-10-PCS; principal; 2016-12-11)
DX: D64.9 Anemia, unspecified (principal); T80.1XXA Vascular complications following infusion, transfusion and therapeutic injection, initial encounter; I50.32 Chronic diastolic (congestive) heart failure; N17.9 Acute kidney failure, unspecified; I80.8 Phlebitis and thrombophlebitis of other sites; I11.0 Hypertensive heart disease with heart failure; I25.10 Atherosclerotic heart disease of native coronary artery without angina pectoris; Z95.1 Presence of aortocoronary bypass graft; M10.9 Gout, unspecified; I95.9 Hypotension, unspecified; Z85.820 Personal history of malignant melanoma of skin; D70.9 Neutropenia, unspecified; Z85.118 Personal history of other malignant neoplasm of bronchus and lung; I44.1 Atrioventricular block, second degree; H90.3 Sensorineural hearing loss, bilateral
CPT/HCPCS: 36415; 36430; 36511; 71010-TC; 76775-TC; 76856-TC; 80048; 80053; 80061; 81003; 82272; 82436; 82550; 82570; 82595; 82607; 82746; 82784; 83010; 83036; 83615; 83721; 83735; 83880; 83883; 84133; 84155; 84165; 84300; 84439; 84443; 84484; 84550; 85025; 85027; 85044; 85610; 85730; 86140; 86157; 86334; 86850; 86900; 86901; 86922; 87040; 87086; 88300-TC; 93005; 93010; 93306-TC; 93880-TC; 99285-25; P9038; P9058

== ENCOUNTER 2017-01-24 07:45 | Day surgery (SDC) | payer OTHER, MEDICARE ==
[2017-01-24] MEDS ORDERED: FUROSEMIDE 40 MG/4 ML INJECTABLE VIAL IVPUSH ONE ×2 (12:00→15:00)
[2017-01-24] MEDS ORDERED: POTASSIUM CHLORIDE TABS 20 MEQ TABLET.ER (FP) PO ONE ×2 (12:00→15:00)
[2017-01-24 12:39] LABS: MCH 31.2 pg (25.7-33.7); MCHC 34.7 g/dl (32.0-35.9); MEAN CELL VOLUME 90.1 fl (80-96); MEAN PLT VOLUME 6.5 fl (7.5-11.1); PLATELET COUNT 192 K/MM3 (134-434); RDW 19.3 % (11.9-15.9)
[2017-01-24 12:54] LABS: ALBUMIN 2.7 g/dl (3.4-5.0); ANION GAP 8 (8-16); CALCIUM 8.2 mg/dL (8.5-10.1); CO2 27 mmol/L (21-32); GLUCOSE,RANDOM 99 mg/dL (74-106)
[2017-01-24 12:59] LABS: ALK PHOS 76 U/L (45-117); BILIRUBIN,TOTAL 0.5 mg/dL (0.2-1.0); CREATININE 1.2 mg/dL (0.7-1.3); SGOT/AST 12 U/L (15-37); SGPT/ALT 16 U/L (12-78)
[2017-01-24 13:07] LABS: WHITE BLOOD COUNT 1.8 K/mm3 (4.0-10.0)
[2017-01-24 14:11] LABS: ANISOCYTOSIS 2+; HYPOCHROMIA 2+; MICROCYTOSIS 1+; PLATELET ESTIMATE ADEQUATE (NORMAL)
[2017-01-24 18:07] VITALS: BP 154/68; PULSE 70; TEMP 98.5
== END 2017-01-24 21:30 | disposition home or self-care (01) ==
LOC: JONCBLOOD 07:45 → J7W 11:33 → JONCBLOOD 21:30
PROVIDERS: ATTEND Internal Medicine Hematology & Oncology
PROC: 30253N1 (ICD-10-PCS; principal; 2017-01-24)
DX: C92.Z0 Other myeloid leukemia not having achieved remission (principal)
CPT/HCPCS: 36415; 36430; 80053; 85025; 86850; 86900; 86901; 86922; P9038; P9058

== ENCOUNTER 2017-02-05 17:01 | Inpatient (IN) | payer OTHER, MEDICARE ==
--- NOTE | 2017-02-05 18:03 | PDOC ---
History of Present Illness - General Chief Complaint: Nausea/Vomiting Stated Complaint: VOMITING Time Seen by Provider: 02/05/17 18:01 History Source: Patient, Family Exam Limitations: No Limitations - History of Present Illness Initial Comments: 02/05/17 18:02 Patient is a 81 year old male with leukemia who is DNR and refusing treatment for leukemia who is presenting with his sister (medical decision maker) at the request of Dr. Barakat for 3 days of nausea and vomiting with any PO intake and no relief with Zofran 1x. Vomit is watery, non bloody, non bilious. Patient was admitted 2 weeks ago and was leukopenic and hyponatremic (115). He was transfused 2 units, hyponatremia did not respond to fluids, patients furosemide was stopped and put on sodium tablets, improved to 120s on discharge and 135 on followup labs. Patient denies fever, chills, CP, Abd pain, d/c but endorses mild SOB PCP: Amrita Rn On Site: [facility] Oncologist: Yuval Past History - Past Medical History Allergies/Adverse Reactions: Allergies Allergy/AdvReac Type Severity Reaction Status Date / Time No Known Allergies Allergy Verified 02/05/17 17:10 Home Medications: Ambulatory Orders Allopurinol [Zyloprim -] 100 mg PO DAILY 12/11/16 Aspirin [ASA -] 81 mg PO DAILY 12/11/16 Colchicine [Colcrys -] 0.6 mg PO DAILY #30 tablet 12/14/16 Alprazolam [Xanax] 1 tab PO BID PRN 01/24/17 Prednisone 1 tab PO DAILY 01/24/17 Voriconazole [Vfend] 1 tab PO BID 01/24/17 Alprazolam [Xanax] 0.5 mg PO BID PRN #0 tablet MDD 2 02/12/17 Fluticasone Prop 0.05% Nasal [Flonase -] 2 spray NS DAILY #1 spray 02/12/17 Loratadine [Claritin -] 10 mg PO DAILY #30 tablet 02/12/17 Polyethylene Glycol 3350 [Miralax 119 gm Btl -] 17 gm PO DAILY bottle 02/12/17 Ranitidine [Zantac -] 150 mg PO BID #60 tablet 02/12/17 Sodium Chloride Nasal [place] [[place] Nasal [place] -] 2 spray NS TID PRN #0 spray MDD 6 02/12/17 Cancer: Yes (LUNG S/P NODULE,MELANOMA,LEUKEMIA) Cardiac Disorders: Yes (BYPASS TRIPLE) HTN: Yes - Surgical History Cardiac Surgery: Yes (bypass) - Psycho/Social/Smoking Cessation Hx Anxiety: No Suicidal Ideation: No Smoking History: Former smoker Have you smoked in the past 12 months: No If you are a former smoker, when did you quit?: 12 YRS Information on smoking cessation initiated: No Hx Alcohol Use: No Drug/Substance Use Hx: No Substance Use Type: None Review of Systems - Review of Systems Able to Perform ROS?: Yes Is the patient limited Amharic proficient: No Constitutional: No: Chills, Fever HEENTM: No: Throat Pain Respiratory: Yes: Shortness of Breath Cardiac (ROS): No: Chest Pain ABD/GI: Yes: Nausea, Vomiting. No: Constipated, Diarrhea, Other (hiccups and abdominal pain) : No: Burning, Dysuria, Urgency Neurological: No: Headache, Dizziness, Other (Alterations in mental status) *Physical Exam - Vital Signs Last Vital Signs Temp Pulse Resp BP Pulse Ox 59 L 18 179/71 97 02/05/17 17:06 02/05/17 17:06 02/05/17 17:06 02/05/17 17:06 - Physical Exam General Appearance: Yes: Nourished Respiratory/Chest: positive: Lungs Clear, Normal Breath Sounds Cardiovascular: positive: Regular Rhythm, Regular Rate, Other (Heart sounds diminished). negative: JVD Vascular Pulses: Dorsalis-Pedis (R): 2+, Doralis-Pedis (L): 2+ Gastrointestinal/Abdominal: positive: Decreased BS. negative: Distended, Guarding, Tenderness Extremity: negative: Pedal Edema Neurologic: positive: grain cleaner II-XII NML intact, Alert. negative: Fully Oriented ( Name and location) ED Treatment Course - LABORATORY CBC & Chemistry Diagram: 02/14/17 07:45 02/14/17 07:45 Medical Decision Making - Medical Decision Making 81 year old male with leukemia who is refusing treatment for cancer but still desires treatment for other illness presents with nausea and vomiting history of hyponatremia on last admission that did not respond to fluids and water restriction ddx; Progression fo cancer, SBO, infection, sepsis, uti, dehydration, metabolic abnormalities 02/05/17 20:10 CBC,CMP CBCD WBC 1.6 K/mm3 (4.0-10.0) L* 02/05/17 18:21 RBC 3.23 M/mm3 (4.00-5.60) L D 02/05/17 18:21 Hgb 9.7 GM/dL (11.7-16.9) L D 02/05/17 18:21 Hct 27.0 % (35.4-49) L D 02/05/17 18:21 MCV 83.4 fl (80-96) 02/05/17 18:21 MCHC 35.9 g/dl (32.0-35.9) 02/05/17 18:21 RDW 21.8 % (11.9-15.9) H D 02/05/17 18:21 Plt Count 207 K/MM3 (134-434) 02/05/17 18:21 MPV 5.6 fl (7.5-11.1) L D 02/05/17 18:21 CMP Sodium 110 mmol/L (136-145) L* D 02/05/17 18:21 Potassium 4.2 mmol/L (3.5-5.1) 02/05/17 18:21 Chloride 74 mmol/L (98-107) L D 02/05/17 18:21 Carbon Dioxide 21 mmol/L (21-32) D 02/05/17 18:21 Anion Gap 15 (8-16) 02/05/17 18:21 BUN 8 mg/dL (7-18) D 02/05/17 18:21 Creatinine 0.7 mg/dL (0.7-1.3) D 02/05/17 18:21 Creat Clearance w eGFR > 60 (>60) 02/05/17 18:21 Calcium 8.2 mg/dL (8.5-10.1) L 02/05/17 18:21 Total Bilirubin 0.6 mg/dL (0.2-1.0) 02/05/17 18:21 AST 24 U/L (15-37) D 02/05/17 18:21 ALT 17 U/L (12-78) 02/05/17 18:21 Alkaline Phosphatase 134 U/L (45-117) H D 02/05/17 18:21 Total Protein 6.9 g/dl (6.4-8.2) 02/05/17 18:21 Albumin 3.4 g/dl (3.4-5.0) D 02/05/17 18:21 Leukopenia, neutrapenia, Severe Hyponatremia 02/05/17 21:[address] Isbell about patient and he agreed to have patient admitted to ICU under his service. Recommendations: Sepsis W/U and Hypertonic Saline. Spoke with Dr. Green in the ICU who requested holding hypertonic fluids at this time because patient is not altered and has no neurological deficits. Put in order for admission. Ordered requested tests per Dr. Green BNP, Urine Na (Urine osmole already ordered) 02/05/17 22:05 no increased opacity on CXR *DC/Admit/Observation/Transfer Diagnosis at time of Disposition: Hyponatremia Leukopenia Qualifiers: Leukopenia type: neutropenia Neutropenia type: unspecified Qualified Code(s): D70.9 - Neutropenia, unspecified - Discharge Dispostion Disposition: VNS/HOME HEALTH CARE Condition at time of disposition: Guarded Admit: Yes - Prescriptions - Referrals - Attestations Physician Attestion: 02/05/17 21:04 I, Dr. Mayco Santos, attest that this document has been prepared under my direction and personally reviewed by me in its entirety. I further attest, that it accurately reflects all work, treatment, procedures and medical decision -making performed by me.
--- NOTE | 2017-02-05 18:09 | PDOC ---
Attending Attestation - Medical Decision Making 02/05/17 18:32 Documentation prepared by Leyla Donaldson, acting as medical administrative for Keyla Syed MD. <Leyla Donaldson - Last Filed: 02/05/17 18:31> - Resident Resident Name: Mayco Santos - ED Attending Attestation I have performed the following: I have examined & evaluated the patient, The case was reviewed & discussed with the resident, I agree w/resident's findings & plan, Exceptions are as noted - HPI HPI: 02/05/17 18:04 81 yo M wtih h/o gout, recent diagnosis leukemia ( diagnosed 1 mo ago no undergoing any chemo or tx) here today with n/v x 3 days. no f/c no abd pain. no change to bowel habits. no h/o abd surgery. no urinary complaints. saw oncologist dr. oseguera today in the office, sent to ed for evaluation and dehydration. c/o feeling fatigue. does have occasional sob and exertional sob. no other complaints. pcp dr. brady oncologist. dr. oseguera 02/05/17 18:08 meds allopurinaol 100mg zuranipec 200mg asa 81mg voriconazale 200mg bid. xanax 0.25mg errous 500mg levaaquin 25mg - Physicial Exam PE: 02/05/17 18:06 on exam awake alert dry mucous membranes, lungs clear right side, left side decreased breath sounds. abd soft Nondistended. no pal mass. skin warm and dry. no edema. - Medical Decision Making 02/05/17 18:07 81 yo M with ho luekemia, here with n/v fatigue since 3 days. no f/c differential: worsenin luekocytosis, hyponatremia infection such as uti or pna, effusion. plan iv fluids las antiemetics, admit. cxr will d/w jeff 02/05/17 18:08 <Keyla Syed - Last Filed: 02/05/17 18:44> Heart Score/ECG Review - ECG Intrepretation Comment:: 02/05/17 18:31 Vent Rate: 50 bpm IMPRESSION: Sinus bradycardia with 2nd degree AV blok (Mobitz I). Left axis deviation. Left bundle branch block. <Leyla Donaldson - Last Filed: 02/05/17 18:31> #1 General ECG Interpretation: Normal Rate, Normal Intervals (sinus bradycardia mobitz I block), No acute ischemic changes (TWI I AVL,) <Keyla Syed - Last Filed: 02/05/17 18:44>
[2017-02-05] MEDS ORDERED: ONDANSETRON 4 MG/2 ML VIAL IVPUSH ONE (18:22)
[2017-02-05] MEDS ORDERED: SODIUM CHLORIDE 0.9% 1000 ML INFUS.BAG IV ONE (18:22)
[2017-02-05 18:38] LABS: MCH 29.9 pg (25.7-33.7); MCHC 35.9 g/dl (32.0-35.9); MEAN CELL VOLUME 83.4 fl (80-96); PLATELET COUNT 207 K/MM3 (134-434); RDW 21.8 % (11.9-15.9)
[2017-02-05] MEDS ORDERED: ONDANSETRON 4 MG/2 ML VIAL ONE (18:39)
[2017-02-05 18:40] LABS: MEAN PLT VOLUME 5.6 fl (7.5-11.1)
[2017-02-05 19:07] LABS: ALBUMIN 3.4 g/dl (3.4-5.0); ANION GAP 15 (8-16); CALCIUM 8.2 mg/dL (8.5-10.1); CO2 21 mmol/L (21-32); CREATININE 0.7 mg/dL (0.7-1.3); GLUCOSE,RANDOM 87 mg/dL (74-106); SGOT/AST 24 U/L (15-37); SGPT/ALT 17 U/L (12-78)
[2017-02-05 19:09] LABS: ALK PHOS 134 U/L (45-117); BILIRUBIN,TOTAL 0.6 mg/dL (0.2-1.0); TOT PROT 6.9 g/dl (6.4-8.2)
[2017-02-05 19:15] LABS: HYPOCHROMIA FEW; PLATELET ESTIMATE ADEQUATE (NORMAL); POLYCHROMASIA FEW
[2017-02-05 19:16] LABS: ANISOCYTOSIS 2+; MICROCYTOSIS 1+; OVALOCYTES FEW
[2017-02-05 20:14] LABS: WHITE BLOOD COUNT 1.6 K/mm3 (4.0-10.0)
[2017-02-05 22:42] LABS: URINE APPEARANCE CLEAR; URINE BILIRUBIN NEGATIVE (NEGATIVE); URINE COLOR STRAW; URINE GLUCOSE (UA) NEGATIVE (NEGATIVE); URINE KETONE 2+ (NEGATIVE); URINE LEUK ESTERASE NEGATIVE (NEGATIVE); URINE NITRITE NEGATIVE (NEGATIVE); URINE PROTEIN NEGATIVE (NEGATIVE); URINE UROBILINOGEN NEGATIVE mg/dL (0.2-1.0)
[2017-02-05 22:46] LABS: URINE BLOOD 1+ (NEGATIVE)
[2017-02-05 22:52] LABS: URINE RBC 2 /hpf (0-3); URINE WBC 1 /hpf (3-5)
[2017-02-05 23:34] VITALS: BMI 28.8
[2017-02-06] MEDS ORDERED: SODIUM CHLORIDE 1,000 ML IV SCH (00:30)
--- NOTE | 2017-02-06 00:36 | CONSULT ---
Consult Consult Specialty:: Pulm/CCM Reason for Consultation:: hyponatremia - History of Present Illness Chief Complaint: n/v History of Present Illness: This is a 81 yo man with former smoker, CAD s/p CABG, metastatic melanoma to lung s/p resection and recently diagnosed AML who presented with nausea and vomiting x 3 days. Briefly patient diagnosed with leukemia after BMB and has declined treatment and per advanced directive is DNR/DNI and no aggressive measures. [place] [facility] [place]/w V fluids and sodium tabs. He was seen in the ED and found to have Na 110 and leukocytosis ( 1.6). On exam patient appeared hypovolemic: dry mucus membranes, no edema. CXR w /o focal infiltrate. He was given Ns x1 liter and transferred to ICU for continued treatment of hypoNa. Patient denies: fever/chills/cough/CP/SOB/VINES/ dizziness/LOC/AMS. - History Source History Provided By: Patient, Medical Record - Past Medical History Cardio/Vascular: Yes: CAD, HTN, Hyperlipdemia Pulmonary: Yes: Cancer Rheumatology: Yes: Gout - Past Surgical History Past Surgical History: Yes: CABG - Alcohol/Substance Use Hx Alcohol Use: No - Smoking History Smoking history: Former smoker Have you smoked in the past 12 months: No If you are a former smoker, when did you quit?: 12 YRS - Social History History of Recent Travel: No Home Medications - Allergies Allergies/Adverse Reactions: Allergies Allergy/AdvReac Type Severity Reaction Status Date / Time No Known Allergies Allergy Verified 02/05/17 17:10 - Home Medications Home Medications: Ambulatory Orders Allopurinol [Zyloprim -] 100 mg PO DAILY 12/11/16 Aspirin [ASA -] 81 mg PO DAILY 12/11/16 Colchicine [Colcrys -] 0.6 mg PO DAILY #30 tablet 12/14/16 Alprazolam [Xanax] 1 tab PO BID PRN 01/24/17 Levofloxacin [Levaquin] 1 tab PO HS 01/24/17 Prednisone 1 tab PO DAILY 01/24/17 Rosuvastatin [Crestor -] 1 tab PO HS 01/24/17 Voriconazole [Vfend] 1 tab PO BID 01/24/17 Lesinurad [Zurampic] 200 mg PO DAILY 02/05/17 Family Disease History - Family Disease History Family History: Unremarkable Review of Systems - Review of Systems Gastrointestinal: reports: Nausea, Vomiting Physical Exam Vital Signs: Vital Signs Temperature 97.7 F 02/05/17 22:29 Pulse Rate 62 02/06/17 00:07 Respiratory Rate 16 02/06/17 00:07 Blood Pressure 160/70 02/06/17 00:07 O2 Sat by Pulse Oximetry (%) 99 02/05/17 22:29 Constitutional: Yes: No Distress, Calm Eyes: Yes: EOM Intact Cardiovascular: Yes: Regular Rate and Rhythm Respiratory: Yes: Diminished Gastrointestinal: Yes: Normal Bowel Sounds, Soft Neurological: Yes: Alert, Oriented Labs: CBCD WBC 1.6 K/mm3 (4.0-10.0) L* 02/05/17 18:21 RBC 3.23 M/mm3 (4.00-5.60) L D 02/05/17 18:21 Hgb 9.7 GM/dL (11.7-16.9) L D 02/05/17 18:21 Hct 27.0 % (35.4-49) L D 02/05/17 18:21 MCV 83.4 fl (80-96) 02/05/17 18:21 MCHC 35.9 g/dl (32.0-35.9) 02/05/17 18:21 RDW 21.8 % (11.9-15.9) H D 02/05/17 18:21 Plt Count 207 K/MM3 (134-434) 02/05/17 18:21 MPV 5.6 fl (7.5-11.1) L D 02/05/17 18:21 CMP Sodium 110 mmol/L (136-145) L* D 02/05/17 18:21 Potassium 4.2 mmol/L (3.5-5.1) 02/05/17 18:21 Chloride 74 mmol/L (98-107) L D 02/05/17 18:21 Carbon Dioxide 21 mmol/L (21-32) D 02/05/17 18:21 Anion Gap 15 (8-16) 02/05/17 18:21 BUN 8 mg/dL (7-18) D 02/05/17 18:21 Creatinine 0.7 mg/dL (0.7-1.3) D 02/05/17 18:21 Creat Clearance w eGFR > 60 (>60) 02/05/17 18:21 Random Glucose 87 mg/dL (74-106) 02/05/17 18:21 Calcium 8.2 mg/dL (8.5-10.1) L 02/05/17 18:21 Total Bilirubin 0.6 mg/dL (0.2-1.0) 02/05/17 18:21 AST 24 U/L (15-37) D 02/05/17 18:21 ALT 17 U/L (12-78) 02/05/17 18:21 Alkaline Phosphatase 134 U/L (45-117) H D 02/05/17 18:21 Total Protein 6.9 g/dl (6.4-8.2) 02/05/17 18:21 Albumin 3.4 g/dl (3.4-5.0) D 02/05/17 18:21 Imaging - Results X-ray: Report Reviewed, Image Reviewed Problem List - Problems (1) Hyponatremia Code(s): E87.1 - HYPO-OSMOLALITY AND HYPONATREMIA (2) Leukopenia Code(s): D72.819 - DECREASED WHITE BLOOD CELL COUNT, UNSPECIFIED Qualifiers: Leukopenia type: neutropenia Neutropenia type: unspecified Qualified Code(s): D70.9 - Neutropenia, unspecified (3) Hx of CABG Code(s): Z95.1 - PRESENCE OF AORTOCORONARY BYPASS GRAFT (4) Lung cancer Code(s): C34.90 - MALIGNANT NEOPLASM OF UNSP PART OF UNSP BRONCHUS OR LUNG Qualifiers: (5) Melanoma Code(s): C43.9 - MALIGNANT MELANOMA OF SKIN, UNSPECIFIED Qualifiers: (6) AML (acute myeloblastic leukemia) Code(s): C92.00 - ACUTE MYELOBLASTIC LEUKEMIA, NOT HAVING ACHIEVED REMISSION Assessment/Plan 81 yo man metastatic melanoma to lung s/p resection and recently diagnosed AML ; DNR/DNI no aggressive measures who presented with n/v found to have hypovolemic hypoNa likely 2/2 GI losses from vomiting vs euvolemic 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 -IV fluids (NS) for hypovolemia --total sodium deficit ~1200 Meq, but will correct to goal Na 120 with deficit ~ 400Meq over 24hrs -slow sodium correction goal 8-10 Meq in 24hrs -serial BMP q2-4hrs -serial urine/serum osmolality -strict I&Os, notify MD/FANCY NEEDLEWORKER if increased u/o -f/u TFTs -CXR -does not appear infected at this time will hold off on ABX for now, low threshold to started empiric coverage for neutropenia -DVT prophylaxis -DNR/DNI, no aggressive measures
[2017-02-06] MEDS ORDERED: chlorproMAZINE HCL 25 MG/1 ML AMP IM PRN (00:38)
[2017-02-06] MEDS ORDERED: ONDANSETRON 4 MG/2 ML VIAL IVPUSH PRN (00:54)
[2017-02-06 01:30] LABS: ALBUMIN 3.2 g/dl (3.4-5.0); ALK PHOS 124 U/L (45-117); ANION GAP 14 (8-16); BILIRUBIN,TOTAL 0.6 mg/dL (0.2-1.0); CALCIUM 7.5 mg/dL (8.5-10.1); CO2 21 mmol/L (21-32); CREATININE 0.6 mg/dL (0.7-1.3); GLUCOSE,RANDOM 70 mg/dL (74-106); SGOT/AST 27 U/L (15-37); SGPT/ALT 16 U/L (12-78); TOT PROT 6.5 g/dl (6.4-8.2)
[2017-02-06 02:56] LABS: THYROID STIMULATING HORMONE 2.53 uIU/ml (0.358-3.74)
[2017-02-06 05:59] LABS: MCH 30.2 pg (25.7-33.7); MCHC 35.7 g/dl (32.0-35.9); MEAN CELL VOLUME 84.8 fl (80-96); MEAN PLT VOLUME 6.1 fl (7.5-11.1); PLATELET COUNT 180 K/MM3 (134-434); RDW 22.2 % (11.9-15.9)
[2017-02-06] MEDS: HEPARIN NA (PORCINE) 5,000 UNITS/ML 1ML VIAL SQ SCH ×3 (06:08→22:31)
[2017-02-06 06:19] LABS: ANION GAP 14 (8-16); CALCIUM 7.7 mg/dL (8.5-10.1); CO2 22 mmol/L (21-32); CREATININE 0.7 mg/dL (0.7-1.3); GLUCOSE,RANDOM 66 mg/dL (74-106); PHOSPHOROUS 2.3 mg/dL (2.5-4.9)
[2017-02-06 06:29] LABS: WHITE BLOOD COUNT 1.9 K/mm3 (4.0-10.0)
[2017-02-06] MEDS: DEXTROSE 5%-0.45% SALINE 1,000 ML IV SCH ×2 (07:57→16:03)
--- NOTE | 2017-02-06 08:27 | CON.NEP ---
Consult Consult Specialty:: nephrology Reason for Consultation:: hyponatremia - History of Present Illness Chief Complaint: vomiting History of Present Illness: Patient is a 81 year old male with leukemia who is DNR and denying treatment for leukemia who is presenting with his sister (medical decision maker) at the request of Dr. Barakat for 3 days of nausea and vomiting with any PO intake and no relief with Zofran 1x. Vomit is watery, non bloody, non bilious. Patient was admitted 2 weeks ago and was leukopenic and hyponatremic (115). He was transfused 2 units, hyponatremia did not respond to fluids, patients furosemide was stopped and put on sodium tablets, improved to 120s on discharge and 135 on followup labs. He is ICU. Denied everything. Said he had not been vomiting or having diarrhea. He was given saline and his sodium anh from 110 to 117 this morning - History Source History Provided By: Medical Record - Past Medical History Cardio/Vascular: Yes: CAD, HTN, Hyperlipdemia Pulmonary: Yes: Cancer Rheumatology: Yes: Gout - Past Surgical History Past Surgical History: Yes: CABG - Alcohol/Substance Use Hx Alcohol Use: No - Smoking History Smoking history: Former smoker Have you smoked in the past 12 months: No If you are a former smoker, when did you quit?: 12 YRS - Social History History of Recent Travel: No Home Medications - Allergies Allergies/Adverse Reactions: Allergies Allergy/AdvReac Type Severity Reaction Status Date / Time No Known Allergies Allergy Verified 02/05/17 17:10 - Home Medications Home Medications: Ambulatory Orders Allopurinol [Zyloprim -] 100 mg PO DAILY 12/11/16 Aspirin [ASA -] 81 mg PO DAILY 12/11/16 Colchicine [Colcrys -] 0.6 mg PO DAILY #30 tablet 12/14/16 Alprazolam [Xanax] 1 tab PO BID PRN 01/24/17 Levofloxacin [Levaquin] 1 tab PO HS 01/24/17 Prednisone 1 tab PO DAILY 01/24/17 Rosuvastatin [Crestor -] 1 tab PO HS 01/24/17 Voriconazole [Vfend] 1 tab PO BID 01/24/17 Lesinurad [Zurampic] 200 mg PO DAILY 02/05/17 Review of Systems Unable to obtain ROS, reason: denying symptoms Findings/Remarks: he has been vomiting but said he wasnt. History is unreliable - Review of Systems Gastrointestinal: reports: Vomiting Nephrology Consult - Height Height: 5 ft 6 in - Weight Weight: 178 lb 14.4 oz - BMI Body Mass Index (BMI): 28.8 - Lab Results CBC,BMP: CBC, BMP 02/06/17 05:10 02/06/17 05:10 Anion Gap: Anion Gap Anion Gap 14 (8-16) 02/06/17 05:10 - Imaging Chest X-ray: Image Reviewed - Physical Examination Vital Signs: Vital Signs Temperature 98.2 F 02/06/17 06:00 Pulse Rate 88 02/06/17 06:00 Respiratory Rate 18 02/06/17 06:00 Blood Pressure 140/87 02/06/17 06:00 O2 Sat by Pulse Oximetry (%) 96 02/06/17 07:55 Assessment/Plan IMPRESSION HYponatremia likely due to volume depletion given history of vomiting. May also have element of adrenal insufficiency given prednisone use though its not clear how much prednisone he was on or for how long. He was not discharged on prednisone in November. His sodium has risen faster than Id like it to have. PLAN obtain cortisol level change iv to 1/2 NS note vomiting can be from hyponatremia or cause hyponatremia check urine electrolytes feed patient as tolerated, this will help with sodium start hydrocortisone (since he is unable to take prednisone if vomiting) after getting cortisol level MV
--- NOTE | 2017-02-06 09:12 | PN ---
Progress Note, Physician Chief Complaint: Admitted to ICU for sx hyponatremia. Known to be from office, history of CAD s/p CABG, melanoma and now recent dx of AML (refused treatment). History of Present Illness: 81 yo man with former smoker, CAD s/p CABG, metastatic melanoma to lung s/p resection and recently diagnosed AML who presented with nausea and vomiting x 3 days. Briefly patient diagnosed with leukemia after BMB and has declined treatment and per advanced directive is DNR/DNI and no aggressive measures. Patient recently hospitalized at [facility] for hypoNa t/w V fluids and sodium tabs. He was seen in the ED and found to have Na 110 and leukocytosis (1.6). On exam patient appeared hypovolemic: dry mucus membranes, no edema. CXR w/o focal infiltrate. He was given Ns x1 liter and transferred to ICU for continued treatment of hypoNa. Patient denies: fever/chills/cough/CP/SOB/VINES/dizziness/LOC/ AMS. While he was recently at [facility], received a call from pitting machine operator there re development of 2:1 AV block. Beta tracy was d/c'd and he was observed and discharged home. No PPM was required. He also does not want invasive procedures. This AM in ICU while walking to bathroom he had a near syncopal episode with episode of 2:1 AV block (Wenkebach at rate of 45bpm (reportedly normal BP. He has no recollection of event. ECG reviewed and shows clear Type 1, 2nd degree AV block (Wenkebach). He denies chest pain, SOB, palpitations. - Current Medication List Current Medications: Active Medications Chlorpromazine HCl (Thorazine Injection -) 25 mg IM Q4H PRN PRN Reason: NAUSEA AND/OR VOMITING Last Admin: 02/06/17 01:00 Dose: 25 mg Heparin Sodium (Porcine) (Heparin -) 5,000 unit SQ TID [facility] Last Admin: 02/06/17 06:08 Dose: 5,000 unit Dextrose/Sodium Chloride (D5-1/2ns -) 1,000 mls @ 100 mls/hr IV ASDIR MABEL Last Admin: 02/06/17 07:57 Dose: 100 mls/hr Ondansetron HCl (Zofran Injection) 4 mg IVPUSH Q6H PRN PRN Reason: NAUSEA AND/OR VOMITING - Objective Vital Signs: Vital Signs Temperature 98.2 F 02/06/17 06:00 Pulse Rate 88 02/06/17 06:00 Respiratory Rate 18 02/06/17 06:00 Blood Pressure 140/87 02/06/17 06:00 O2 Sat by Pulse Oximetry (%) 96 02/06/17 07:55 Constitutional: Yes: No Distress, Calm Eyes: Yes: Conjunctiva Clear Cardiovascular: Yes: Regular Rate and Rhythm Respiratory: Yes: CTA Bilaterally Gastrointestinal: Yes: Soft (nontender) Edema: No Neurological: Yes: Alert Labs: CBC, BMP 02/06/17 05:10 02/06/17 05:10 Laboratory Tests 02/05/17 02/05/17 02/06/17 22:07 22:25 01:00 WBC Hgb Hct Plt Count BUN Creatinine Random Glucose Calcium Phosphorus Magnesium Total Bilirubin 0.6 AST 27 ALT 16 Alkaline Phosphatase 124 H B-Natriuretic Peptide 4003.69 H Free T4 1.32 H 02/06/17 02/06/17 05:10 05:10 WBC 1.9 L* Hgb 9.4 L Hct 26.5 L Plt Count 180 BUN 7 Creatinine 0.7 Random Glucose 66 L Calcium 7.7 L Phosphorus 2.3 L Magnesium 2.0 Total Bilirubin AST ALT Alkaline Phosphatase B-Natriuretic Peptide Free T4 - ....Imaging Chest X-ray: Image Reviewed EKG: Image Reviewed Assessment/Plan IMP: Symptomatic hyponatremia and volume depletion leading to presyncope ASHD s/p CABG Type 1 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 Although his Wenkebach recently surfaced, it is most probably not the cause of his presyncopal episode this morning which I suspect has more to do with hyponatremia and volume depletion. 2. Continue telemetry. -Avoid AV harjeet agents. -Check TSH. 3. Even if there is evidence of higher grade AV block, I do not think he would want a PPM, does not want any invasive procedures. It would also be an infection risk given his leukopenia and immunocompromised state. Thank you.
--- NOTE | 2017-02-06 09:14 | HOSP ---
Subjective - Review of Symptoms Events since last encounter: Rapid response was called because patient collapsed on restroom floor. internal communications intern was in the room and witnessed the fall. Patient got up the bed and went in bathroom try to urinate and then he lost balance and collapsed in the medical laboratory assistant's arms. The rn intern held his back and he went down with protection on his head and lower back the whole time. Patient regained consciousness immediately and able to answer questions and follow commands. Bradycardic but finger stick, pulse ox within normal limits. Pulmonary: No: Dyspnea, Cough Cardiovascular: No: Chest Pain, Palpitations Neurological: Yes: Weakness, Confusion Physical Examination Vital Signs: Vital Signs Temperature 98.2 F 02/06/17 06:00 Pulse Rate 88 02/06/17 06:00 Respiratory Rate 18 02/06/17 06:00 Blood Pressure 140/87 02/06/17 06:00 O2 Sat by Pulse Oximetry (%) 96 02/06/17 07:55 Cardiovascular: Yes: Bradycardia, S1, S2. No: Murmur Respiratory: Yes: CTA Bilaterally Labs: CBC, BMP 02/06/17 05:10 02/06/17 05:10 Hospitalist Encounter Assessment: Syncope - Likely vasovagal - Stat EKG - Continuous bed rest with restraint - Fall precaution - Cont. current medical management in ICU Visit type - Emergency Visit Emergency Visit: No - New Patient This patient is new to me today: No - Critical Care Critical Care patient: Yes Total Critical Care Time (in minutes): 35 Critical Care Statement: The care of this patient involved high complexity decision making to prevent further life threatening deterioration of the patient 's condition and/or to evalute & treat vital organ system(s) failure or risk of failure.
--- NOTE | 2017-02-06 09:19 | CONSULT ---
Consultation: REQUESTING PROVIDER: CONSULT REQUEST: We have been asked to medically evaluate this patient for possible infection. HISTORY OF PRESENT ILLNESS: 81 yo man w/ pmh of AML (refusing tx), CAD s/p CABG, metastatic melanoma, anemia , and diastolic HF, who presented to the ED at the behest of Dr. Barakat given 3 days of N/V. Pt with no PO intake for past 3 days and no relief of N/V with zosyn x1. Vomitus described as watery, non-bilous, non-bloody. Pt denies any fever, chills, productive cough, chest pain, rash, VINES, dysuria, constipation, diarrhea. He has no hx of recent travel or sick contacts. In ED, Pt was found to be hyponatremic (110) and leukopenic (1.5) in the E/D and was treated w/ IV fluids. Pt has significant hx of neutropenia and anemia, most recent on last admission in November. At baseline, he lives w/ his sister who assists w/ ADLs and is his medical proxy. Since admission, has denied N/V, w/ uptrending Na 110 -> 117. Currently afebrile and appears non-infectious. Pt on levaquin/voriconazole ppx regime for AML per oncologist, Mita Willams at [facility]. Was admitted two weeks ago for hyponatremia (115) and leukopenia. Received 2 units, fluids. Hyponatremia poorly responsive to fluids, received Na pills w/ correction to 135. PMH AML - no tx Diastolic HF Gout CAD HLD HTN Metastatic melanoma Anemia Lung Ca PSH CABG Resection of lung nodule Allergies NKDA Meds See below Fam Hx Non-contributory Social Hx No alcohol use 12 year former smoker retired, employment unknown REVIEW OF SYSTEMS: CONSTITUTIONAL: generalized weakness Absent: fever, chills, diaphoresis, malaise, loss of appetite, weight change HEENT: Absent: rhinorrhea, nasal congestion, throat pain, throat swelling, difficulty swallowing, mouth swelling, ear pain, eye pain, visual changes CARDIOVASCULAR: syncopal episode during exam Absent: chest pain, palpitations, irregular heart rate, lightheadedness, peripheral edema RESPIRATORY: Absent: cough, shortness of breath, dyspnea with exertion, orthopnea, wheezing, stridor, hemoptysis GASTROINTESTINAL: nausea, vomiting, Absent: abdominal pain, abdominal distension, diarrhea, constipation, melena, hematochezia GENITOURINARY: Absent: dysuria, frequency, urgency, hesitancy, hematuria, flank pain, genital pain MUSCULOSKELETAL: Absent: myalgia, arthralgia, joint swelling, back pain, neck pain SKIN: Absent: rash, itching, pallor HEMATOLOGIC/IMMUNOLOGIC: Absent: easy bleeding, easy bruising, lymphadenopathy, frequent infections ENDOCRINE: Absent: unexplained weight gain, unexplained weight loss, heat intolerance, cold intolerance NEUROLOGIC: Absent: headache, focal weakness or paresthesias, dizziness, unsteady gait, seizure, mental status changes, bladder or bowel incontinence PSYCHIATRIC: Absent: anxiety, depression, suicidal or homicidal ideation, hallucinations. PHYSICAL EXAMINATION Vital Signs - 24 hr 02/05/17 02/05/17 02/06/17 22:00 22:29 00:07 Temperature 97.7 F 97.7 F Pulse Rate 46 L 62 Pulse Rate [ 51 L Left Apical] Respiratory 16 17 16 Rate Blood Pressure 180/58 160/70 Blood Pressure 167/60 [Left Arm] O2 Sat by Pulse 99 99 Oximetry (%) 02/06/17 02/06/17 02/06/17 02:00 04:00 06:00 Temperature 97.8 F 98.2 F Pulse Rate 86 90 88 Pulse Rate [ Left Apical] Respiratory 18 16 18 Rate Blood Pressure 123/67 151/73 140/87 Blood Pressure [Left Arm] O2 Sat by Pulse Oximetry (%) 02/06/17 02/06/17 07:37 07:55 Temperature Pulse Rate Pulse Rate [ Left Apical] Respiratory Rate Blood Pressure Blood Pressure [Left Arm] O2 Sat by Pulse 96 96 Oximetry (%) GENERAL: Somnolent, a&ox2, in no acute distress. Waxing and waning consciousness. Appears pale. HEAD: Normal with no signs of trauma. EYES: Pupils small and poorly reactive bilaterally. R sided ptosis. Extraocular movements intact, with delay in tracking, likely due to attentional deficity. sclera anicteric, conjunctiva clear. No lid lag. EARS, NOSE, THROAT: Ears normal, nares patent, oropharynx clear without exudates. Moist mucous membranes. NECK: supple without lymphadenopathy, JVD, or masses. LUNGS: Breath sounds equal, clear to auscultation bilaterally. No wheezes, and no crackles. No accessory muscle use. HEART: Distant heart sounds. Regular rate and rhythm, normal S1 and S2 without murmur, rub or gallop. ABDOMEN: Soft, nontender, not distended, normoactive bowel sounds, no guarding, no rebound, no masses. No hepatomegaly or splenomegaly. MUSCULOSKELETAL: No bony deformities or tenderness. No CVA tenderness. UPPER EXTREMITIES: 2+ pulses, warm, well-perfused. No cyanosis. No clubbing. Cap refill <2 seconds. No peripheral edema. LOWER EXTREMITIES: 2+ pulses, slightly cool to touch. No calf tenderness. No peripheral edema. NEUROLOGICAL: Cranial nerves II-XII intact. Normal speech. Gait not evaluated. PSYCHIATRIC: Cooperative. Intermittent attention to interviewer. Somnolent. SKIN: no rashes or lesions noted. Laboratory Results - last 24 hr CBC, BMP 02/06/17 05:10 02/06/17 05:10 02/05/17 02/05/17 02/05/17 22:07 22:07 22:07 WBC RBC Hgb Hct MCV MCH MCHC RDW Plt Count MPV Neutrophils % Lymphocytes % Monocytes % Eosinophils % Sodium Potassium Chloride Carbon Dioxide Anion Gap BUN Creatinine Creat Clearance w eGFR POC Glucometer Random Glucose Lactic Acid 1.0 Calcium Phosphorus Magnesium Total Bilirubin AST ALT Alkaline Phosphatase B-Natriuretic Peptide Total Protein Albumin TSH 2.53 Free T4 Urine Color Straw Urine Appearance Clear Urine pH 7.0 D Urine Protein Negative Urine Glucose (UA) Negative Urine Ketones 2+ H Urine Blood 1+ H Urine Nitrite Negative Urine Bilirubin Negative Urine Urobilinogen Negative Ur Leukocyte Esterase Negative Urine RBC 2 Urine WBC 1 Ur Epithelial Cells Rare Ur Random Sodium 02/05/17 02/05/17 02/05/17 22:07 22:07 22:25 WBC RBC Hgb Hct MCV MCH MCHC RDW Plt Count MPV Neutrophils % Lymphocytes % Monocytes % Eosinophils % Sodium Potassium Chloride Carbon Dioxide Anion Gap BUN Creatinine Creat Clearance w eGFR POC Glucometer Random Glucose Lactic Acid Calcium Phosphorus Magnesium Total Bilirubin AST ALT Alkaline Phosphatase B-Natriuretic Peptide 4003.69 H Total Protein Albumin TSH Free T4 1.32 H Urine Color Urine Appearance Urine pH Urine Protein Urine Glucose (UA) Urine Ketones Urine Blood Urine Nitrite Urine Bilirubin Urine Urobilinogen Ur Leukocyte Esterase Urine RBC Urine WBC Ur Epithelial Cells Ur Random Sodium 82 02/06/17 02/06/17 02/06/17 01:00 05:10 05:10 WBC 1.9 L* RBC 3.12 L Hgb 9.4 L Hct 26.5 L MCV 84.8 MCH 30.2 MCHC 35.7 RDW 22.2 H Plt Count 180 MPV 6.1 L Neutrophils % 24.0 L D Lymphocytes % 71.0 H D Monocytes % 4.0 Eosinophils % 1.0 Sodium 112 L* 117 L* Potassium 4.0 4.4 Chloride 77 L 81 L Carbon Dioxide 21 22 Anion Gap 14 14 BUN 7 7 Creatinine 0.6 L 0.7 Creat Clearance w eGFR > 60 POC Glucometer Random Glucose 70 L 66 L Lactic Acid Calcium 7.5 L 7.7 L Phosphorus 2.3 L Magnesium 2.0 Total Bilirubin 0.6 AST 27 ALT 16 Alkaline Phosphatase 124 H B-Natriuretic Peptide Total Protein 6.5 Albumin 3.2 L TSH Free T4 Urine Color Urine Appearance Urine pH Urine Protein Urine Glucose (UA) Urine Ketones Urine Blood Urine Nitrite Urine Bilirubin Urine Urobilinogen Ur Leukocyte Esterase Urine RBC Urine WBC Ur Epithelial Cells Ur Random Sodium 02/06/17 08:46 WBC RBC Hgb Hct MCV MCH MCHC RDW Plt Count MPV Neutrophils % Lymphocytes % Monocytes % Eosinophils % Sodium Potassium Chloride Carbon Dioxide Anion Gap BUN Creatinine Creat Clearance w eGFR POC Glucometer 122.21631 Random Glucose Lactic Acid Calcium Phosphorus Magnesium Total Bilirubin AST ALT Alkaline Phosphatase B-Natriuretic Peptide Total Protein Albumin TSH Free T4 Urine Color Urine Appearance Urine pH Urine Protein Urine Glucose (UA) Urine Ketones Urine Blood Urine Nitrite Urine Bilirubin Urine Urobilinogen Ur Leukocyte Esterase Urine RBC Urine WBC Ur Epithelial Cells Ur Random Sodium Active Medications Generic Name Dose Route Start Last Admin Trade Name Gisella PRN Reason Stop Dose Admin Chlorpromazine HCl 25 mg 02/06/17 00:38 02/06/17 01:00 Thorazine Injection - IM 25 mg Q4H PRN Administration NAUSEA AND/OR VOMITING Heparin Sodium (Porcine) 5,000 unit 02/06/17 06:00 02/06/17 06:08 Heparin - SQ 5,000 unit TID MABEL Administration Dextrose/Sodium Chloride 1,000 mls @ 100 mls/hr 02/06/17 08:00 02/06/17 07:57 D5-1/2ns - IV 100 mls/hr ASDIR MABEL Administration Ondansetron HCl 4 mg 02/06/17 00:54 Zofran Injection IVPUSH Q6H PRN NAUSEA AND/OR VOMITING ASSESSMENT/PLAN: Assessment: 81 yo man w/ pmh of AML (refusing tx), CAD s/p CABG, metastatic melanoma, anemia , and diastolic HF, who presented to the ED at the behest of Dr. Barakat given 3 days of N/V. Pt w/ recent AML diagnosis, currently being covered with levaquin/ voriconazole for AML ppx regimen. Denies any infectious symptoms w/ resolving hyponatremia and no further N/V. Afebrile with chronic neutropenia and borderline anemia. PE notable for possible waxing and waning mental status, but otherwise unremarkable. CXR w/ no interval change. Currently no suspected active infection. Plan to continue current abx regimen and monitor for infectious symptoms. Plan: #Neutropenia - Current WBC 1.9 - Monitor for signs of infection - Trend fever, WBC - If suspected infection, begin monotherapy w/ either Cefepime/carbapenem/Zosyn - Neutropenic precautions #AML - Continue current abx ppx regimen, Voriconazole/levaquin - Monitor for acute MS changes. Hold Voriconazole if MS changes/delirium - F/u w/ outpt oncologist for further management Luis Miguel aVnegas MD, PGY1 Plan discussed with attending, Dr. Falcon Dispo: We will continue to follow the patient. Thank you for this consultative opportunity. Visit type - Emergency Visit Emergency Visit: No - New Patient This patient is new to me today: Yes Date on this admission: 02/06/17 - Critical Care Critical Care patient: No
--- NOTE | 2017-02-06 11:52 | PN ---
Teaching Attending Note Name of Resident: Luis Miguel Vanegas ATTENDING PHYSICIAN STATEMENT I saw and evaluated the patient. I reviewed the resident's note and discussed the case with the resident. I agree with the resident's findings and plan as documented. SUBJECTIVE: 81 year old male PMH AML not on treatment, hx recent [facility] admission for hyonatremia admitted with generalized weakness, N/V Found to be severely hyponatremic. Chronically leukopenic/ neutropenic. No fever. OBJECTIVE: Awake, alert, oriented Anicteric Cor S1S2 Lungs clear Abdomen soft, non tender No edema ASSESSMENT AND PLAN: Severe hyponatremia ? etiology AML, untreated Chronic leukopenia/ neutropenia ANC approx 670 Pt afebrile; no identifiable infectious focus Observe off IV antibiotics Continue prophylactic levaquin/ voriconazole Neutropenic precautions Critical care time reviewing chart, examining pt, viewing Xrays, discussing with housestaff 35min
[2017-02-06 12:22] LABS: ANION GAP 12 (8-16); CALCIUM 7.8 mg/dL (8.5-10.1); CO2 21 mmol/L (21-32); CREATININE 0.8 mg/dL (0.7-1.3); GLUCOSE,RANDOM 105 mg/dL (74-106)
--- NOTE | 2017-02-06 13:01 | PN ---
Teaching Attending Note Name of Resident: Sarwat Langley ATTENDING PHYSICIAN STATEMENT I saw and evaluated the patient. I reviewed the resident's note and discussed the case with the resident. I agree with the resident's findings and plan as documented. SUBJECTIVE: Patient seen and examined in the ICU. Awake and alert, but mildly confused. Noted improvement in NA to 117 from 110. Denies CP or SOB. Intake & Output 02/03/17 02/04/17 02/05/17 02/06/17 23:59 23:59 23:59 23:59 Intake Total 50 450 Balance 50 450 Weight 178 lb 9.6 oz 178 lb 14.4 oz Last Vital Signs Temp Pulse Resp BP Pulse Ox 98 F 48 L 22 131/53 96 02/06/17 08:00 02/06/17 08:48 02/06/17 08:48 02/06/17 08:48 02/06/17 07:55 Active Medications Chlorpromazine HCl (Thorazine Injection -) 25 mg IM Q4H PRN PRN Reason: NAUSEA AND/OR VOMITING Last Admin: 02/06/17 01:00 Dose: 25 mg Heparin Sodium (Porcine) (Heparin -) 5,000 unit SQ TID MABEL Last Admin: 02/06/17 06:08 Dose: 5,000 unit Dextrose/Sodium Chloride (D5-1/2ns -) 1,000 mls @ 100 mls/hr IV ASDIR MABEL Last Admin: 02/06/17 07:57 Dose: 100 mls/hr Ondansetron HCl (Zofran Injection) 4 mg IVPUSH Q6H PRN PRN Reason: NAUSEA AND/OR VOMITING Constitutional: Yes: Awake and responsive, No Distress Eyes: Yes: EOM Intact Cardiovascular: Yes: Regular Rate and Rhythm Respiratory: Yes: Diminished at the bases Gastrointestinal: Yes: Normal Bowel Sounds, Soft Neurological: Yes: Alert, Oriented Labs: Laboratory Results - last 24 hr 02/05/17 02/05/17 02/05/17 18:21 18:21 21:10 WBC 1.6 L* RBC 3.23 L D Hgb 9.7 L D Hct 27.0 L D MCV 83.4 MCH 29.9 MCHC 35.9 RDW 21.8 H D Plt Count 207 MPV 5.6 L D Neutrophils % 40.0 L D Lymphocytes % 50.0 H D Monocytes % 8.0 D Eosinophils % Band Neutrophils 2.0 Reactive Lymphocytes 2 D Platelet Estimate Adequate Platelet Comment No clumping noted Polychromasia Few Hypochromic-Microcytic Few Anisocytosis 2+ Microcytosis 1+ Ovalocytes Few Sodium 110 L* D Potassium 4.2 Chloride 74 L D Carbon Dioxide 21 D Anion Gap 15 BUN 8 D Creatinine 0.7 D Creat Clearance w eGFR > 60 POC Glucometer Random Glucose 87 Lactic Acid Calcium 8.2 L Phosphorus Magnesium Total Bilirubin 0.6 AST 24 D ALT 17 Alkaline Phosphatase 134 H D B-Natriuretic Peptide Total Protein 6.9 Albumin 3.4 D Lipase 81 TSH Free T4 Urine Color Urine Appearance Urine pH Ur Specific [place] Urine Protein Urine Glucose (UA) Urine Ketones Urine Blood Urine Nitrite Urine Bilirubin Urine Urobilinogen Ur Leukocyte Esterase Urine RBC Urine WBC Ur Epithelial Cells Ur Random Sodium 80 Ur Random Potassium 15.5 Ur Random Chloride 52 02/05/17 02/05/17 02/05/17 22:07 22:07 22:07 WBC RBC Hgb Hct MCV MCH MCHC RDW Plt Count MPV Neutrophils % Lymphocytes % Monocytes % Eosinophils % Band Neutrophils Reactive Lymphocytes Platelet Estimate Platelet Comment Polychromasia Hypochromic-Microcytic Anisocytosis Microcytosis Ovalocytes Sodium Potassium Chloride Carbon Dioxide Anion Gap BUN Creatinine Creat Clearance w eGFR POC Glucometer Random Glucose Lactic Acid 1.0 Calcium Phosphorus Magnesium Total Bilirubin AST ALT Alkaline Phosphatase B-Natriuretic Peptide Total Protein Albumin Lipase TSH 2.53 Free T4 Urine Color Straw Urine Appearance Clear Urine pH 7.0 D Ur Specific [place] 1.015 Urine Protein Negative Urine Glucose (UA) Negative Urine Ketones 2+ H Urine Blood 1+ H Urine Nitrite Negative Urine Bilirubin Negative Urine Urobilinogen Negative Ur Leukocyte Esterase Negative Urine RBC 2 Urine WBC 1 Ur Epithelial Cells Rare Ur Random Sodium Ur Random Potassium Ur Random Chloride 02/05/17 02/05/17 02/05/17 22:07 22:07 22:25 WBC RBC Hgb Hct MCV MCH MCHC RDW Plt Count MPV Neutrophils % Lymphocytes % Monocytes % Eosinophils % Band Neutrophils Reactive Lymphocytes Platelet Estimate Platelet Comment Polychromasia Hypochromic-Microcytic Anisocytosis Microcytosis Ovalocytes Sodium Potassium Chloride Carbon Dioxide Anion Gap BUN Creatinine Creat Clearance w eGFR POC Glucometer Random Glucose Lactic Acid Calcium Phosphorus Magnesium Total Bilirubin AST ALT Alkaline Phosphatase B-Natriuretic Peptide 4003.69 H Total Protein Albumin Lipase TSH Free T4 1.32 H Urine Color Urine Appearance Urine pH Ur Specific [place] Urine Protein Urine Glucose (UA) Urine Ketones Urine Blood Urine Nitrite Urine Bilirubin Urine Urobilinogen Ur Leukocyte Esterase Urine RBC Urine WBC Ur Epithelial Cells Ur Random Sodium 82 Ur Random Potassium Ur Random Chloride 02/06/17 02/06/17 02/06/17 01:00 05:10 05:10 WBC 1.9 L* RBC 3.12 L Hgb 9.4 L Hct 26.5 L MCV 84.8 MCH 30.2 MCHC 35.7 RDW 22.2 H Plt Count 180 MPV 6.1 L Neutrophils % 24.0 L D Lymphocytes % 71.0 H D Monocytes % 4.0 Eosinophils % 1.0 Band Neutrophils Reactive Lymphocytes Platelet Estimate Platelet Comment Polychromasia Hypochromic-Microcytic Anisocytosis Microcytosis Ovalocytes Sodium 112 L* 117 L* Potassium 4.0 4.4 Chloride 77 L 81 L Carbon Dioxide 21 22 Anion Gap 14 14 BUN 7 7 Creatinine 0.6 L 0.7 Creat Clearance w eGFR > 60 POC Glucometer Random Glucose 70 L 66 L Lactic Acid Calcium 7.5 L 7.7 L Phosphorus 2.3 L Magnesium 2.0 Total Bilirubin 0.6 AST 27 ALT 16 Alkaline Phosphatase 124 H B-Natriuretic Peptide Total Protein 6.5 Albumin 3.2 L Lipase TSH Free T4 Urine Color Urine Appearance Urine pH Ur Specific [place] Urine Protein Urine Glucose (UA) Urine Ketones Urine Blood Urine Nitrite Urine Bilirubin Urine Urobilinogen Ur Leukocyte Esterase Urine RBC Urine WBC Ur Epithelial Cells Ur Random Sodium Ur Random Potassium Ur Random Chloride 02/06/17 02/06/17 08:46 11:10 WBC RBC Hgb Hct MCV MCH MCHC RDW Plt Count MPV Neutrophils % Lymphocytes % Monocytes % Eosinophils % Band Neutrophils Reactive Lymphocytes Platelet Estimate Platelet Comment Polychromasia Hypochromic-Microcytic Anisocytosis Microcytosis Ovalocytes Sodium 118 L* Potassium 3.9 Chloride 85 L Carbon Dioxide 21 Anion Gap 12 BUN 7 Creatinine 0.8 Creat Clearance w eGFR POC Glucometer 122.84606 Random Glucose 105 D Lactic Acid Calcium 7.8 L Phosphorus Magnesium Total Bilirubin AST ALT Alkaline Phosphatase B-Natriuretic Peptide Total Protein Albumin Lipase TSH Free T4 Urine Color Urine Appearance Urine pH Ur Specific [place] Urine Protein Urine Glucose (UA) Urine Ketones Urine Blood Urine Nitrite Urine Bilirubin Urine Urobilinogen Ur Leukocyte Esterase Urine RBC Urine WBC Ur Epithelial Cells Ur Random Sodium Ur Random Potassium Ur Random Chloride Problem List - Problems (1) Hyponatremia Code(s): E87.1 - HYPO-OSMOLALITY AND HYPONATREMIA (2) Leukopenia Code(s): D72.819 - DECREASED WHITE BLOOD CELL COUNT, UNSPECIFIED Qualifiers: Leukopenia type: neutropenia Neutropenia type: unspecified Qualified Code(s): D70.9 - Neutropenia, unspecified (3) Hx of CABG Code(s): Z95.1 - PRESENCE OF AORTOCORONARY BYPASS GRAFT (4) Lung cancer Code(s): C34.90 - MALIGNANT NEOPLASM OF UNSP PART OF UNSP BRONCHUS OR LUNG Qualifiers: (5) Melanoma Code(s): C43.9 - MALIGNANT MELANOMA OF SKIN, UNSPECIFIED Qualifiers: (6) AML (acute myeloblastic leukemia) Code(s): C92.00 - ACUTE MYELOBLASTIC LEUKEMIA, NOT HAVING ACHIEVED REMISSION Assessment/Plan Follow Chemistry 1/ NS for now Strict I&O O2 as needed Noted ID evaluation was called VTE prophylaxis DNR/DNI Dr Magallanes Critical Care Total Critical Care Time (in minutes): 35 Critical Care Statement: The care of this patient involved high complexity decision making to prevent further life threatening deterioration of the patient 's condition and/or to evalute & treat vital organ system(s) failure or risk of failure.
--- NOTE | 2017-02-06 13:41 | PN ---
Physical Exam: SUBJECTIVE: Patient was more lethargic and confused earlier in the morning around 7am. He had a syncope episode in bathroom but did not hit his head (see rapid response note). At 10am, he's more alert, awake and oriented and able to answer questions and follow commands. OBJECTIVE: Vital Signs Period Temp Pulse Resp BP Sys/Alvares Pulse Ox Last 24 Hr 97.7 F-98.2 F 45-92 16-22 123-180/50-87 96-99 GENERAL: AAO x 3, speaks slowly, able to answer questions and follow command, not in any distress EYES: sclera anicteric, conjunctiva clear. LUNGS: CTAB HEART: RRR, S1, S2 without murmur, rub or gallop. ABDOMEN: Soft, nontender, nondistended, normoactive bowel sounds, no guarding, no rebound EXTREMITIES: no edema. SKIN: Warm, dry, normal turgor, no rashes or lesions noted CBCD WBC 1.9 K/mm3 (4.0-10.0) L* 02/06/17 05:10 RBC 3.12 M/mm3 (4.00-5.60) L 02/06/17 05:10 Hgb 9.4 GM/dL (11.7-16.9) L 02/06/17 05:10 Hct 26.5 % (35.4-49) L 02/06/17 05:10 MCV 84.8 fl (80-96) 02/06/17 05:10 MCHC 35.7 g/dl (32.0-35.9) 02/06/17 05:10 RDW 22.2 % (11.9-15.9) H 02/06/17 05:10 Plt Count 180 K/MM3 (134-434) 02/06/17 05:10 MPV 6.1 fl (7.5-11.1) L 02/06/17 05:10 CMP Sodium 118 mmol/L (136-145) L* 02/06/17 11:10 Potassium 3.9 mmol/L (3.5-5.1) 02/06/17 11:10 Chloride 85 mmol/L (98-107) L 02/06/17 11:10 Carbon Dioxide 21 mmol/L (21-32) 02/06/17 11:10 Anion Gap 12 (8-16) 02/06/17 11:10 BUN 7 mg/dL (7-18) 02/06/17 11:10 Creatinine 0.8 mg/dL (0.7-1.3) 02/06/17 11:10 Creat Clearance w eGFR > 60 (>60) 02/06/17 01:00 Calcium 7.8 mg/dL (8.5-10.1) L 02/06/17 11:10 Total Bilirubin 0.6 mg/dL (0.2-1.0) 02/06/17 01:00 AST 27 U/L (15-37) 02/06/17 01:00 ALT 16 U/L (12-78) 02/06/17 01:00 Alkaline Phosphatase 124 U/L (45-117) H 02/06/17 01:00 Total Protein 6.5 g/dl (6.4-8.2) 02/06/17 01:00 Albumin 3.2 g/dl (3.4-5.0) L 02/06/17 01:00 Intake & Output 02/03/17 02/04/17 02/05/17 02/06/17 23:59 23:59 23:59 23:59 Intake Total 50 450 Balance 50 450 Weight 81.012 kg 81.148 kg Urine Test Results Urine Color Straw 02/05/17 22:07 Urine Appearance Clear 02/05/17 22:07 Urine pH 7.0 (5.0-8.0) D 02/05/17 22:07 Ur Specific [place] 1.015 (1.005-1.025) 02/05/17 22:07 Urine Protein Negative (NEGATIVE) 02/05/17 22:07 Urine Glucose (UA) Negative (NEGATIVE) 02/05/17 22:07 Urine Ketones 2+ (NEGATIVE) H 02/05/17 22:07 Urine Blood 1+ (NEGATIVE) H 02/05/17 22:07 Urine Nitrite Negative (NEGATIVE) 02/05/17 22:07 Urine Bilirubin Negative (NEGATIVE) 02/05/17 22:07 Ur Leukocyte Esterase Negative (NEGATIVE) 02/05/17 22:07 Urine RBC 2 /hpf (0-3) 02/05/17 22:07 Urine WBC 1 /hpf (3-5) 02/05/17 22:07 Ur Epithelial Cells Rare /hpf (FEW) 02/05/17 22:07 ASSESSMENT/PLAN: 81 yo M w/ h/o AML and 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 Renal: hypotension and hyponatremia - BP stable and hyponatremia improving - IVF changed to D5W+1/2NS - Na+ goal ~120 - Cont. to trend Na+ - r/o adrenal suppression Cardiac: syncope; 2nd degree type I heart block - Syncope 2/2 volume depletion or vasovagal - Cont. cardiac monitoring - No intervention for heart block per cardiology Neuro: lethargy and confusion - 2/2 toxic metabolic encephalophy - Improving - Cont. current management FEN - D5W and 1/2 NS * May change to D5W - Na+ correcting conservatively - Full liquid diet * need s&s Prophylaxis - DVT: Heparin SQ - GI: protonix Dispo - Cont. to conservatively correct Na+ VICTORIANO Santana PGY-2 Pager: [phone] Visit type - Emergency Visit Emergency Visit: No - New Patient This patient is new to me today: No - Critical Care Critical Care patient: Yes Total Critical Care Time (in minutes): 30 Critical Care Statement: The care of this patient involved high complexity decision making to prevent further life threatening deterioration of the patient 's condition and/or to evalute & treat vital organ system(s) failure or risk of failure.
--- NOTE | 2017-02-06 16:08 | EKG ---
Test Reason : Blood Pressure : / mmHG Vent. Rate : 059 BPM Atrial Rate : 070 BPM P-R Int : 000 ms QRS Dur : 150 ms QT Int : 468 ms P-R-T Axes : -01 -50 090 degrees QTc Int : 463 ms SINUS RHYTHM WITH INCREASING P-R DURATION CONSISTANT WITH MOBITZ TYPE I AV BLOCK LEFT AXIS DEVIATION LEFT BUNDLE BRANCH BLOCK ABNORMAL ECG WHEN COMPARED WITH ECG OF 05-FEB-2017 18:21, NO MAJOR SEEN . CORELATE CLINICALLY. Confirmed by JUSTICE CALVO MD ([id number]) on 02/06/2017 4:08:03 PM Referred By: Confirmed By:JUSTICE CALVO MD
--- NOTE | 2017-02-06 16:29 | CONSULT ---
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 Recently, at [facility] , patient was diagnosed with AML on a bone marrow biopsy and has declined treatment and per advanced directive is DNR/ DNI and no aggressive measures. Also at [facility], patient was admitted for hyponatremia. This sunday, sister says that he developed vomiting, feeling week and she feels that he is not able to swallow. He was seen in the ED and found to have Na 110 and leukocytosis (1.6). From ER he was transferred to ICU for continued treatment of hypoNa. This am, he had a pre-syncopal episode. Denies any fevers at home or any localizing symptoms - History Source History Provided By: Family Member (sister), Medical Record - Past Medical History Cardio/Vascular: Yes: CAD, HTN, Hyperlipdemia Pulmonary: Yes: Cancer Rheumatology: Yes: Gout - Past Surgical History Past Surgical History: Yes: CABG - Alcohol/Substance Use Hx Alcohol Use: No - Smoking History Smoking history: Former smoker Have you smoked in the past 12 months: No If you are a former smoker, when did you quit?: 12 YRS - Social History History of Recent Travel: No Home Medications - Allergies Allergies/Adverse Reactions: Allergies Allergy/AdvReac Type Severity Reaction Status Date / Time No Known Allergies Allergy Verified 02/05/17 17:10 - Home Medications Home Medications: Ambulatory Orders Allopurinol [Zyloprim -] 100 mg PO DAILY 12/11/16 Aspirin [ASA -] 81 mg PO DAILY 12/11/16 Colchicine [Colcrys -] 0.6 mg PO DAILY #30 tablet 12/14/16 Alprazolam [Xanax] 1 tab PO BID PRN 01/24/17 Levofloxacin [Levaquin] 1 tab PO HS 01/24/17 Prednisone 1 tab PO DAILY 01/24/17 Rosuvastatin [Crestor -] 1 tab PO HS 01/24/17 Voriconazole [Vfend] 1 tab PO BID 01/24/17 Lesinurad [Zurampic] 200 mg PO DAILY 02/05/17 Family Disease History - Family Disease History Family History: Unremarkable Review of Systems - Review of Systems Constitutional: reports: Malaise. denies: Fever, Night Sweats HENT: reports: Difficult Swallowing, Throat Pain Neck: reports: No Symptoms Cardiovascular: denies: Chest Pain, Shortness of Breath Hematology/Lymphatic: denies: Easily Bruised, Excessive Bleeding Physical Exam Vital Signs: Vital Signs Temperature 98 F 02/06/17 08:00 Pulse Rate 48 L 02/06/17 08:48 Respiratory Rate 22 02/06/17 08:48 Blood Pressure 131/53 02/06/17 08:48 O2 Sat by Pulse Oximetry (%) 96 02/06/17 07:55 Constitutional: Yes: Calm HENT: Yes: Atraumatic, Normocephalic Neck: No: Lymphadenopathy Cardiovascular: Yes: Regular Rate and Rhythm Respiratory: Yes: Regular Edema: No Labs: CBC, BMP 02/06/17 05:10 02/06/17 11:10 Imaging - Results Chest X-ray: Report Reviewed Problem List - Problems (1) AML (acute myeloblastic leukemia) Assessment/Plan: Patient diagnosed in [facility] recently with AML Pt decided not have any treatment for his AML Supportive care PRBC transfusion if needed Oppurtunistic infection ppx with levaquin and voricanazole if febrile, need broad spectrum abx and will consider G-CSF Need to consider palliative care consult in this hospitalization Code(s): C92.00 - ACUTE MYELOBLASTIC LEUKEMIA, NOT HAVING ACHIEVED REMISSION Qualifiers: Leukemia Active/Remission status: without remission Qualified Code(s ): C92.00 - Acute myeloblastic leukemia, not having achieved remission (2) Hyponatremia Assessment/Plan: renal f/u ?etiology Presently being slowly corrected Code(s): E87.1 - HYPO-OSMOLALITY AND HYPONATREMIA (3) Nausea & vomiting Assessment/Plan: No further episodes noted If any can give anti-emetics prn Sister concerned that Pt has swallowing difficulty, Speech and swallow consulted. Code(s): R11.2 - NAUSEA WITH VOMITING, UNSPECIFIED (4) Syncope Code(s): R55 - SYNCOPE AND COLLAPSE
--- NOTE | 2017-02-06 16:41 | EKG ---
Test Reason : Blood Pressure : / mmHG Vent. Rate : 050 BPM Atrial Rate : 059 BPM P-R Int : 000 ms QRS Dur : 158 ms QT Int : 502 ms P-R-T Axes : 063 -46 098 degrees QTc Int : 457 ms SINUS BRADYCARDIA WITH 2ND DEGREE A-V BLOCK (MOBITZ I) LEFT AXIS DEVIATION LEFT BUNDLE BRANCH BLOCK COMPARED TO ECG OF November2016 16:29:58 RHYTHM HOWARD ABOVE. CORELATE CLINICALLY AND REPEAT INDICATED Confirmed by JUSTICE CALVO MD ([id number]) on 02/06/2017 4:40:51 PM Referred By: Confirmed By:JUSTICE CALVO MD
[2017-02-06 17:55] LABS: ANION GAP 11 (8-16); CALCIUM 7.9 mg/dL (8.5-10.1); CO2 21 mmol/L (21-32); CREATININE 0.8 mg/dL (0.7-1.3); GLUCOSE,RANDOM 117 mg/dL (74-106)
[2017-02-06] MEDS ORDERED: ALPRAZolam 0.25 MG TABLET PO PRN (18:40)
--- NOTE | 2017-02-06 18:42 | HP ---
Admitting History and Physical - Primary Care Physician PCP: Vonda Negron - Admission Chief Complaint: WEAKNESS/LETHARGY/DIZZINESS History of Present Illness: Patient is a 81 year old male with leukemia who is DNR and denying treatment for leukemia who is presenting with his sister (medical decision maker) at the request of Dr. Barakat for 3 days of nausea and vomiting with any PO intake and no relief with Zofran 1x. Vomit is watery, non bloody, non bilious. Patient was admitted 2 weeks ago and was leukopenic and hyponatremic (115). He was transfused 2 units, hyponatremia did not respond to fluids, patients furosemide was stopped and put on sodium tablets, improved to 120s on discharge and 135 on followup labs. He is ICU. Denied everything. Said he had not been vomiting or having diarrhea. He was given saline and his sodium anh from 110 to 117 this morning - History Source History Provided By: Medical Record History Source: Medical Record Limitations to Obtaining History: Physical Impairment - Past Medical History Cardiovascular: Yes: CAD, HTN, Hyperlipdemia Pulmonary: Yes: Cancer Heme/Onc: Yes: Cancer Rheumatology: Yes: Gout - Past Surgical History Past Surgical History: Yes: CABG - Advance Directives Advance Directives: Yes: DNR - Smoking History Smoking history: Former smoker Have you smoked in the past 12 months: No If you are a former smoker, when did you quit?: 12 YRS - Alcohol/Substance Use Hx Alcohol Use: No - Social History History of Recent Travel: No Home Medications - Allergies Allergies/Adverse Reactions: Allergies Allergy/AdvReac Type Severity Reaction Status Date / Time No Known Allergies Allergy Verified 02/05/17 17:10 - Home Medications Home Medications: Ambulatory Orders Allopurinol [Zyloprim -] 100 mg PO DAILY 12/11/16 Aspirin [ASA -] 81 mg PO DAILY 12/11/16 Colchicine [Colcrys -] 0.6 mg PO DAILY #30 tablet 12/14/16 Alprazolam [Xanax] 1 tab PO BID PRN 01/24/17 Levofloxacin [Levaquin] 1 tab PO HS 01/24/17 Prednisone 1 tab PO DAILY 01/24/17 Rosuvastatin [Crestor -] 1 tab PO HS 01/24/17 Voriconazole [Vfend] 1 tab PO BID 01/24/17 Lesinurad [Zurampic] 200 mg PO DAILY 02/05/17 Review of Systems - Review of Systems Constitutional: reports: Loss of Appetite, Weakness Eyes: reports: No Symptoms HENT: reports: No Symptoms Neck: reports: No Symptoms Cardiovascular: reports: Shortness of Breath Respiratory: reports: SOB Gastrointestinal: reports: No Symptoms Genitourinary: reports: No Symptoms Musculoskeletal: reports: Muscle Weakness Integumentary: reports: No Symptoms Neurological: reports: Pre-Existing Deficit Endocrine: reports: No Symptoms Hematology/Lymphatic: reports: No Symptoms Psychiatric: reports: No Symptoms Physical Examination Vital Signs: Vital Signs Temperature 98 F 02/06/17 08:00 Pulse Rate 48 L 02/06/17 08:48 Respiratory Rate 22 02/06/17 08:48 Blood Pressure 131/53 02/06/17 08:48 O2 Sat by Pulse Oximetry (%) 96 02/06/17 07:55 Findings/Remarks: ASLEEP/COMFORTABLE Constitutional: Yes: Mild Distress Eyes: Yes: WNL HENT: Yes: WNL Neck: Yes: WNL Cardiovascular: Yes: WNL Respiratory: Yes: WNL Gastrointestinal: Yes: WNL Renal/: Yes: WNL Musculoskeletal: Yes: Muscle Weakness Extremities: Yes: Other Edema: Yes Edema: LLE: Trace, RLE: Trace Peripheral Pulses WNL: Yes Integumentary: Yes: WNL Wound/Incision: Yes: Clean/Dry Neurological: Yes: WNL ...Motor Strength: WNL Psychiatric: Yes: WNL Labs: CBC, BMP 02/06/17 05:10 02/06/17 16:45 Imaging - Results Chest X-ray: Report Reviewed Problem List - Problems (1) AML (acute myeloblastic leukemia) Code(s): C92.00 - ACUTE MYELOBLASTIC LEUKEMIA, NOT HAVING ACHIEVED REMISSION Qualifiers: Leukemia Active/Remission status: without remission Qualified Code(s ): C92.00 - Acute myeloblastic leukemia, not having achieved remission (2) Hyponatremia Code(s): E87.1 - HYPO-OSMOLALITY AND HYPONATREMIA (3) Leukopenia Code(s): D72.819 - DECREASED WHITE BLOOD CELL COUNT, UNSPECIFIED Qualifiers: Leukopenia type: neutropenia Neutropenia type: unspecified Qualified Code(s): D70.9 - Neutropenia, unspecified (4) Nausea & vomiting Code(s): R11.2 - NAUSEA WITH VOMITING, UNSPECIFIED (5) Acute kidney injury Code(s): N17.9 - ACUTE KIDNEY FAILURE, UNSPECIFIED (6) Anemia Code(s): D64.9 - ANEMIA, UNSPECIFIED Qualifiers: Anemia type: unspecified type Qualified Code(s): D64.9 - Anemia, unspecified (7) Chronic diastolic (congestive) heart failure Code(s): I50.32 - CHRONIC DIASTOLIC (CONGESTIVE) HEART FAILURE (8) Dizziness Code(s): R42 - DIZZINESS AND GIDDINESS (9) Lung cancer Code(s): C34.90 - MALIGNANT NEOPLASM OF UNSP PART OF UNSP BRONCHUS OR LUNG Qualifiers: (10) Melanoma Code(s): C43.9 - MALIGNANT MELANOMA OF SKIN, UNSPECIFIED Qualifiers: (11) Weakness generalized Code(s): R53.1 - WEAKNESS Assessment/Plan HYPONATREMIA CORRECTING SLOWLY RENAL EVAL APPRECIATED PATIENT HAS OPTED NO TX FOR MDD 02 SUPPORT LABS CX
[2017-02-07 05:40] LABS: MCH 29.8 pg (25.7-33.7); MCHC 34.9 g/dl (32.0-35.9); MEAN CELL VOLUME 85.6 fl (80-96); MEAN PLT VOLUME 6.1 fl (7.5-11.1); PLATELET COUNT 187 K/MM3 (134-434); RDW 22.7 % (11.9-15.9); WHITE BLOOD COUNT 2.2 K/mm3 (4.0-10.0)
[2017-02-07 06:04] LABS: ANION GAP 10 (8-16); CALCIUM 8.3 mg/dL (8.5-10.1); CO2 25 mmol/L (21-32); CREATININE 0.8 mg/dL (0.7-1.3); GLUCOSE,RANDOM 87 mg/dL (74-106)
[2017-02-07] MEDS: HEPARIN NA (PORCINE) 5,000 UNITS/ML 1ML VIAL SQ SCH ×3 (06:26→21:23)
[2017-02-07] MEDS: SODIUM CHLORIDE 0.45% 1,000 ML IV SCH (06:58)
--- NOTE | 2017-02-07 07:29 | PN ---
Progress Note, Physician Chief Complaint: ID ICU follow up for this 81 year old male with recent diagnosis of Acute Leukemia on no chemotherapy. No chemotherapy planned for him. Admitted with nausea and severe hyponatremia. He is chronically leukopenic and neutropenic. Currently low Na being managed by renal and improving. He has no fever chills SOB abd pains diarrhea. HE also has very little recall of any reasons for admission other then his salt was low Presently off antibiotics and never febrile thus far. - Current Medication List Current Medications: Active Medications Alprazolam (Xanax -) 0.5 mg PO BID PRN PRN Reason: ANXIETY Chlorpromazine HCl (Thorazine Injection -) 25 mg IM Q4H PRN PRN Reason: NAUSEA AND/OR VOMITING Last Admin: 02/06/17 01:00 Dose: 25 mg Heparin Sodium (Porcine) (Heparin -) 5,000 unit SQ TID [facility] Last Admin: 02/07/17 06:26 Dose: 5,000 unit Sodium Chloride (1/2 Normal Saline) 1,000 mls @ 100 mls/hr IV ASDIR [facility] Last Admin: 02/07/17 06:58 Dose: 100 mls/hr Ondansetron HCl (Zofran Injection) 4 mg IVPUSH Q6H PRN PRN Reason: NAUSEA AND/OR VOMITING - Objective Vital Signs: Vital Signs Temperature 98.4 F 02/07/17 06:00 Pulse Rate 81 02/07/17 06:00 Respiratory Rate 20 02/07/17 06:00 Blood Pressure 145/64 02/07/17 06:00 O2 Sat by Pulse Oximetry (%) 96 02/06/17 20:00 Constitutional: Yes: Well Nourished, No Distress, Calm Eyes: Yes: WNL, Conjunctiva Clear, EOM Intact Neck: Yes: WNL, Supple, Trachea Midline Cardiovascular: Yes: Regular Rate and Rhythm, S1, S2. No: Gallop, Murmur Respiratory: Yes: WNL, Regular, CTA Bilaterally. No: Rales, Rhonchi, SOB Gastrointestinal: Yes: WNL, Normal Bowel Sounds, Soft. No: Tenderness, Tenderness, Rebound Extremities: No: Cold, Cool, Cyanosis Edema: No Labs: CBC, BMP 02/07/17 05:05 02/07/17 05:05 Problem List - Problems (1) AML (acute myeloblastic leukemia) Code(s): C92.00 - ACUTE MYELOBLASTIC LEUKEMIA, NOT HAVING ACHIEVED REMISSION Qualifiers: Leukemia Active/Remission status: without remission Qualified Code(s ): C92.00 - Acute myeloblastic leukemia, not having achieved remission (2) Hyponatremia Code(s): E87.1 - HYPO-OSMOLALITY AND HYPONATREMIA (3) Nausea & vomiting Code(s): R11.2 - NAUSEA WITH VOMITING, UNSPECIFIED Assessment/Plan Microbiology 02/05/17 22:07 Blood - Peripheral Venous Blood Culture - Preliminary NO GROWTH OBTAINED AFTER 24 HOURS, INCUBATION TO CONTINUE FOR 4 DAYS. 02/05/17 21:50 Blood - Peripheral Venous Blood Culture - Preliminary NO GROWTH OBTAINED AFTER 24 HOURS, INCUBATION TO CONTINUE FOR 4 DAYS. 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
--- NOTE | 2017-02-07 07:55 | PN ---
Progress Note (short form) - Note Progress Note: RENAL Pt is awake and alert denies complaints still does not remember reason for coming to the hospital reportedly had a syncopal episode Last Vital Signs Temp Pulse Resp BP Pulse Ox 98.4 F 81 20 145/64 96 02/07/17 06:00 02/07/17 06:00 02/07/17 06:00 02/07/17 06:00 02/06/17 20:00 heent pupils equal cvs s1s2 rr lungs clear abd soft ext no edema neuro a+ox3 CBC, BMP 02/07/17 05:05 02/07/17 05:05 IMPRESSION hyponatremia likely due to volume depletion although the urine sodium does not reflect this. Adrenal insufficiency with sodium loss would especially since he is responding to ivf so well. Note lowish cortisol level of 8 despite presence in ICU Pt is at risk for falls given hyponatremia AML PLAN continue fluids would start steroids. Note pt has been on prednisone prior to admission [facility]
--- NOTE | 2017-02-07 08:40 | PN ---
Progress Note, Physician Chief Complaint: more alert denies dizziness or chest pain - Current Medication List Current Medications: Active Medications Alprazolam (Xanax -) 0.5 mg PO BID PRN PRN Reason: ANXIETY Chlorpromazine HCl (Thorazine Injection -) 25 mg IM Q4H PRN PRN Reason: NAUSEA AND/OR VOMITING Last Admin: 02/06/17 01:00 Dose: 25 mg Heparin Sodium (Porcine) (Heparin -) 5,000 unit SQ TID [facility] Last Admin: 02/07/17 06:26 Dose: 5,000 unit Sodium Chloride (1/2 Normal Saline) 1,000 mls @ 100 mls/hr IV [facility] Last Admin: 02/07/17 06:58 Dose: 100 mls/hr Ondansetron HCl (Zofran Injection) 4 mg IVPUSH Q6H PRN PRN Reason: NAUSEA AND/OR VOMITING - Objective Vital Signs: Vital Signs Temperature 98.4 F 02/07/17 06:00 Pulse Rate 81 02/07/17 06:00 Respiratory Rate 20 02/07/17 06:00 Blood Pressure 145/64 02/07/17 06:00 O2 Sat by Pulse Oximetry (%) 96 02/06/17 20:00 Constitutional: Yes: Calm Eyes: Yes: Conjunctiva Clear Cardiovascular: Yes: Regular Rate and Rhythm Respiratory: Yes: CTA Bilaterally Gastrointestinal: Yes: Soft (nontender) Edema: No Labs: CBC, BMP 02/07/17 05:05 02/07/17 05:05 Microbiology 02/05/17 22:07 Blood - Peripheral Venous Blood Culture - Preliminary NO GROWTH OBTAINED AFTER 24 HOURS, INCUBATION TO CONTINUE FOR 4 DAYS. 02/05/17 21:50 Blood - Peripheral Venous Blood Culture - Preliminary NO GROWTH OBTAINED AFTER 24 HOURS, INCUBATION TO CONTINUE FOR 4 DAYS. 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 Wenkebach most probably not the cause of his presyncopal episode yesterday which I suspect had more to do with hyponatremia and volume depletion. 2. Even if there is evidence of higher grade AV block, I do not think he would want a PPM, does not want any invasive procedures. It would also be an infection risk given his leukopenia and immunocompromised state. Thank you.
--- NOTE | 2017-02-07 10:21 | CONSULT ---
Admitting History and Physical - Primary Care Physician PCP: Vonda Negron - Admission History of Present Illness: This is a 81 yo man with former smoker, CAD s/p CABG, metastatic melanoma to lung s/p resection and recently diagnosed AML who presented with nausea and vomiting x 3 days. Pt started on regular diet, reporting food sticking in his throat. Diet changed to full fluids with reported good tolerance. Pt reports hiccoughing with po intake, needing to regurgitate food at times. History Source: Patient, Medical Record Limitations to Obtaining History: Clinical Condition (forgetful but oriented) - Past Medical History Cardiovascular: Yes: CAD, HTN, Hyperlipdemia Pulmonary: Yes: Cancer Heme/Onc: Yes: Cancer Rheumatology: Yes: Gout - Past Surgical History Past Surgical History: Yes: CABG - Advance Directives Advance Directives: Yes: DNR - Smoking History Smoking history: Former smoker Have you smoked in the past 12 months: No If you are a former smoker, when did you quit?: 12 YRS - Alcohol/Substance Use Hx Alcohol Use: No - Social History History of Recent Travel: No History - Admission Reason For Visit: HYPONATREMIA,LEUKOPENIA - Diagnostics X-ray: Report Reviewed - General Mental Status: Alert and Oriented, Awake and Alert, Able to Follow Commands, Forgetful, Vague Attention: Intact Ability to Follow Directions: Good Head/Neck Control: WFL - Hearing Hearing: Impaired, Both Hearing Aide: No Speech Evaluation - Communication Primary Language: THAI Communication: Yes: Simple Responses - Speech Production Able to Make Needs Known: Yes: WNL Intelligibility: Yes: WNL - Speech Characteristics Voice Loudness: Normal Voice Pitch: Yes: Normal Voice Phonatory-based Quality: Yes: Normal Speech Pattern: Normal Speech Clarity: < 100% Nasal Resonance: Normal Articulation: Yes: Precise Rate of Speech: Intact - Language/Auditory Comprehension Observation: Able to respond to yes/no queries: Yes, Yes/No Confusion: No, Comprehends Conversational Speech: Yes (simple. Needs time to process/repond), Benefits from Slow Speech: Yes, Benefits from Repetiton: Yes, Benefits from Increased Volume of Speech: Yes - Language/Verbal Expression Able to Communicate Wants and Needs: Yes: WNL - Swallow Evaluation/Bedside Assessment Current Nutritional Intake: Full Liquids Oral Secretions: Yes: WFL Dentition: Yes: Edentulous (mostly edentulous. A couple of teeth. Dentures brought from home, however, eats without them at home.) Facial Symmetry at Rest: Symmetrical (nasal assymmetry with mild pulling on right) Facial Symmetry on Retraction: Symmetrical Facial Movement: Controlled Against Resistance Opening: Normal Against Resistance Closing: Normal Pucker Lips: Normal Smile: Normal Lingual Movement: Normal, Symmetric Lingual Speed of Movement: Normal Lingual Movement Strgth Against Opposition: Normal Lingual Movement Characteristics: Normal Laryngeal Elevation: WFL Laryngeal Movement: Able to Palpate Rate of Intake: WFL Bolus Size: WFL Labial Seal: WFL Chewing: WFL Oral Prep Time: WFL A-P Transit: WFL Pocketing: None Timing of Swallow: Delayed Coughing/Throat Clear: No Change in Voice: No Recommendations - Speech Evaluation, Impression/Plan Impression: Pt with repeated belching with all PO intake. Suspect esophageal hang-up.No cough or vocal changes with PO intake. Pt denies heartburn. Reports some sticking in upper chest. Dentures brought from home.Pt was overtly able to tolerate small piece of ryanne cracker, moistened in applesauce. I suspect dysphagia is multifactorial including enlarged heart pressing on esophagus,and possible esophageal dysphagia/dysmotility/GERD/impaired emptying. - Dysphagia Impressions/Plan Dysphagia Impressions: Ongoing Evaluation *Silent aspiration: cannot be R/O at bedside Dysphagia Treatment Plan: Trial Feedings, 1/2 tsp. at a time, Elevate HOB during feed, Other (upright for 1 hour after meals. Assist with meals. Remind pt to alternate food with sip of liquid. Allow time b/n bites to clear esophagus. NPO if increasing congestion, vomiting, further c/o of difficulty.) Recommendations: MBS w Esophagus (if difficulty persists.) - Recommendations Diet Consistency: Dysphagia Pureed, Other (to reassess for diet advance) Medication Administration: Crushed with applesauce Liquids: Thin Liquids Supplement: Ensure (if RD agrres)
--- NOTE | 2017-02-07 10:56 | PN ---
Teaching Attending Note Name of Resident: Sarwat Langley ATTENDING PHYSICIAN STATEMENT I saw and evaluated the patient. I reviewed the resident's note and discussed the case with the resident. I agree with the resident's findings and plan as documented. SUBJECTIVE: Pt seen and examined in the ICU. Denies any current complaints. No headache, confusion, nausea or vomiting. OBJECTIVE: Last Vital Signs Temp Pulse Resp BP Pulse Ox 98.4 F 81 20 145/64 96 02/07/17 06:00 02/07/17 06:00 02/07/17 06:00 02/07/17 06:00 02/06/17 20:00 Intake & Output 02/04/17 02/05/17 02/06/17 02/07/17 23:59 23:59 23:59 23:59 Intake Total 50 2350 1300 Output Total 740 Balance 50 1610 1300 Weight 178 lb 9.6 oz 178 lb 14.4 oz 178 lb 9.6 oz Gen: NAD at rest Heart: RRR Lung: decreased breath sounds at the bases Abd: soft, nontender Ext: no edema CBC, BMP 02/07/17 05:05 02/07/17 05:05 Active Medications Alprazolam (Xanax -) 0.5 mg PO BID PRN PRN Reason: ANXIETY Chlorpromazine HCl (Thorazine Injection -) 25 mg IM Q4H PRN PRN Reason: NAUSEA AND/OR VOMITING Last Admin: 02/06/17 01:00 Dose: 25 mg Heparin Sodium (Porcine) (Heparin -) 5,000 unit SQ TID [facility] Last Admin: 02/07/17 06:26 Dose: 5,000 unit Sodium Chloride (1/2 Normal Saline) 1,000 mls @ 100 mls/hr IV ASDIR [facility] Last Admin: 02/07/17 06:58 Dose: 100 mls/hr Ondansetron HCl (Zofran Injection) 4 mg IVPUSH Q6H PRN PRN Reason: NAUSEA AND/OR VOMITING ASSESSMENT AND PLAN: Syncope Severe Hyponatremia improving AML - continue IVF per renal - monitor lytes - do not correct more than 0.5mEq/hr - PO as tolerated - DVT prophylaxis - can monitor on floor as not requiring hypertonic saline
--- NOTE | 2017-02-07 13:28 | PN ---
Physical Exam: SUBJECTIVE: No complaint per patient and family member at bedside. No acute event overnight per nurse. OBJECTIVE: Vital Signs Period Temp Pulse Resp BP Sys/Alvares Pulse Ox Last 24 Hr 97.6 F-98.4 F 57-81 15-20 119-145/54-69 96-100 GENERAL: AAO x 3, at baseline mental status, not in any distress EYES: sclera anicteric, conjunctiva clear. LUNGS: CTAB HEART: RRR, S1, S2 without murmur, rub or gallop. ABDOMEN: Soft, nontender, nondistended, normoactive bowel sounds, no guarding, no rebound EXTREMITIES: no edema. SKIN: Warm, dry, normal turgor, no rashes or lesions noted CBCD WBC 2.2 K/mm3 (4.0-10.0) L 02/07/17 05:05 RBC 3.11 M/mm3 (4.00-5.60) L 02/07/17 05:05 Hgb 9.3 GM/dL (11.7-16.9) L 02/07/17 05:05 Hct 26.6 % (35.4-49) L 02/07/17 05:05 MCV 85.6 fl (80-96) 02/07/17 05:05 MCHC 34.9 g/dl (32.0-35.9) 02/07/17 05:05 RDW 22.7 % (11.9-15.9) H 02/07/17 05:05 Plt Count 187 K/MM3 (134-434) 02/07/17 05:05 MPV 6.1 fl (7.5-11.1) L 02/07/17 05:05 CMP Sodium 123 mmol/L (136-145) L* 02/07/17 05:05 Potassium 4.1 mmol/L (3.5-5.1) 02/07/17 05:05 Chloride 88 mmol/L (98-107) L 02/07/17 05:05 Carbon Dioxide 25 mmol/L (21-32) 02/07/17 05:05 Anion Gap 10 (8-16) 02/07/17 05:05 BUN 7 mg/dL (7-18) 02/07/17 05:05 Creatinine 0.8 mg/dL (0.7-1.3) 02/07/17 05:05 Creat Clearance w eGFR > 60 (>60) 02/06/17 01:00 Calcium 8.3 mg/dL (8.5-10.1) L 02/07/17 05:05 Total Bilirubin 0.6 mg/dL (0.2-1.0) 02/06/17 01:00 AST 27 U/L (15-37) 02/06/17 01:00 ALT 16 U/L (12-78) 02/06/17 01:00 Alkaline Phosphatase 124 U/L (45-117) H 02/06/17 01:00 Total Protein 6.5 g/dl (6.4-8.2) 02/06/17 01:00 Albumin 3.2 g/dl (3.4-5.0) L 02/06/17 01:00 Intake & Output 02/04/17 02/05/17 02/06/17 02/07/17 23:59 23:59 23:59 23:59 Intake Total 50 2350 1300 Output Total 740 Balance 50 1610 1300 Weight 81.012 kg 81.148 kg 81.012 kg Microbiology 02/05/17 22:07 Urine Culture - Final Urine - Urine Clean Catch 02/05/17 22:07 Blood Culture - Preliminary Blood - Peripheral Venous NO GROWTH OBTAINED AFTER 24 HOURS, INCUBATION TO CONTINUE FOR 4 DAYS. 02/05/17 21:50 Blood Culture - Preliminary Blood - Peripheral Venous NO GROWTH OBTAINED AFTER 24 HOURS, INCUBATION TO CONTINUE FOR 4 DAYS. 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 Renal: hypotension and hyponatremia - BP stable and hyponatremia improving - IVF changed to 1/2NS - Cont. to trend Na+ Cardiac: syncope; 2nd degree type I heart block - Syncope 2/2 volume depletion or vasovagal - Cont. cardiac monitoring - No intervention for heart block per cardiology Neuro: lethargy and confusion - 2/2 toxic metabolic encephalophy - Back to baseline - Cont. to monitor FEN - 1/2 NS - Na+ correcting conservatively - Dysphagia puree Prophylaxis - DVT: Heparin SQ - GI: protonix Dispo - Transfer to floor VICTORIANO Santana PGY-2 Pager: [phone] Visit type - Emergency Visit Emergency Visit: No - New Patient This patient is new to me today: No - Critical Care Critical Care patient: Yes Total Critical Care Time (in minutes): 30 Critical Care Statement: The care of this patient involved high complexity decision making to prevent further life threatening deterioration of the patient 's condition and/or to evalute & treat vital organ system(s) failure or risk of failure.
[2017-02-07 13:52] LABS: ANION GAP 7 (8-16); CALCIUM 8.5 mg/dL (8.5-10.1); CO2 26 mmol/L (21-32); CREATININE 0.8 mg/dL (0.7-1.3); GLUCOSE,RANDOM 109 mg/dL (74-106)
--- NOTE | 2017-02-07 14:57 | EKG ---
Test Reason : Blood Pressure : / mmHG Vent. Rate : 072 BPM Atrial Rate : 072 BPM P-R Int : 252 ms QRS Dur : 144 ms QT Int : 442 ms P-R-T Axes : 032 -48 122 degrees QTc Int : 483 ms SINUS RHYTHM WITH 1ST DEGREE A-V BLOCK LEFT AXIS DEVIATION LEFT BUNDLE BRANCH BLOCK ABNORMAL ECG WHEN COMPARED WITH ECG OF 06-FEB-2017 08:50, PREVIOUS ECG HAS UNDETERMINED RHYTHM, NEEDS REVIEW Confirmed by SARAH IBANEZ MD ([id number]) on 02/07/2017 2:57:30 PM Referred By: NOHEMY CASEY Confirmed By:SARAH IBANEZ MD
--- NOTE | 2017-02-07 16:50 | PN ---
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 - Current Medication List Current Medications: Active Medications Alprazolam (Xanax -) 0.5 mg PO BID PRN PRN Reason: ANXIETY Chlorpromazine HCl (Thorazine Injection -) 25 mg IM Q4H PRN PRN Reason: NAUSEA AND/OR VOMITING Last Admin: 02/06/17 01:00 Dose: 25 mg Heparin Sodium (Porcine) (Heparin -) 5,000 unit SQ TID [facility] Last Admin: 02/07/17 14:03 Dose: 5,000 unit Sodium Chloride (1/2 Normal Saline) 1,000 mls @ 100 mls/hr IV ASDIR [facility] Last Admin: 02/07/17 06:58 Dose: 100 mls/hr Ondansetron HCl (Zofran Injection) 4 mg IVPUSH Q6H PRN PRN Reason: NAUSEA AND/OR VOMITING - Objective Vital Signs: Vital Signs Temperature 97.4 F L 02/07/17 14:00 Pulse Rate 72 02/07/17 15:00 Respiratory Rate 16 02/07/17 15:00 Blood Pressure 119/73 02/07/17 15:00 O2 Sat by Pulse Oximetry (%) 100 02/07/17 10:00 Constitutional: Yes: Mild Distress Eyes: Yes: WNL HENT: Yes: WNL Neck: Yes: WNL Cardiovascular: Yes: Pulse Irregular Respiratory: Yes: WNL Gastrointestinal: Yes: WNL Musculoskeletal: Yes: Muscle Weakness Extremities: Yes: Other Edema: Yes Edema: LLE: 1+, RLE: 1+ Peripheral Pulses WNL: Yes Integumentary: Yes: WNL Wound/Incision: Yes: Clean/Dry Neurological: Yes: WNL ...Motor Strength: WNL Psychiatric: Yes: WNL Labs: CBC, BMP 02/07/17 05:05 02/07/17 13:23 Problem List - Problems (1) AML (acute myeloblastic leukemia) Code(s): C92.00 - ACUTE MYELOBLASTIC LEUKEMIA, NOT HAVING ACHIEVED REMISSION Qualifiers: Leukemia Active/Remission status: without remission Qualified Code(s ): C92.00 - Acute myeloblastic leukemia, not having achieved remission (2) Hyponatremia Code(s): E87.1 - HYPO-OSMOLALITY AND HYPONATREMIA (3) Leukopenia Code(s): D72.819 - DECREASED WHITE BLOOD CELL COUNT, UNSPECIFIED Qualifiers: Leukopenia type: neutropenia Neutropenia type: unspecified Qualified Code(s): D70.9 - Neutropenia, unspecified (4) Nausea & vomiting Code(s): R11.2 - NAUSEA WITH VOMITING, UNSPECIFIED (5) Acute kidney injury Code(s): N17.9 - ACUTE KIDNEY FAILURE, UNSPECIFIED (6) Anemia Code(s): D64.9 - ANEMIA, UNSPECIFIED Qualifiers: Anemia type: unspecified type Qualified Code(s): D64.9 - Anemia, unspecified (7) Chronic diastolic (congestive) heart failure Code(s): I50.32 - CHRONIC DIASTOLIC (CONGESTIVE) HEART FAILURE (8) Dizziness Code(s): R42 - DIZZINESS AND GIDDINESS (9) Lung cancer Code(s): C34.90 - MALIGNANT NEOPLASM OF UNSP PART OF UNSP BRONCHUS OR LUNG Qualifiers: (10) Melanoma Code(s): C43.9 - MALIGNANT MELANOMA OF SKIN, UNSPECIFIED Qualifiers: (11) Weakness generalized Code(s): R53.1 - WEAKNESS Assessment/Plan HYPONATREMIA CORRECTING SLOWLY RENAL EVAL APPRECIATED PATIENT HAS OPTED NO TX FOR MDD 02 SUPPORT LABS CX DNR/DNI
[2017-02-07] MEDS ORDERED: SODIUM CHLORIDE NASAL SPRAY 44 ML BOTTLE NS PRN (19:46)
[2017-02-07] MEDS: LORATADINE 10 MG TABLET PO SCH (21:23)
[2017-02-07] MEDS: FLUTICASONE PROP 0.05% 16 GM NASAL SPRAY NS SCH (21:23)
[2017-02-07] MEDS: RANITIDINE HCL 150 MG TABLET (FP) PO SCH (21:34)
[2017-02-08 06:09] LABS: BASOPHIL 0.3 % (0-2.0); EOSINOPHIL 1.4 % (0-4.5); MCH 29.9 pg (25.7-33.7); MCHC 34.4 g/dl (32.0-35.9); MEAN PLT VOLUME 6.1 fl (7.5-11.1); NEUTROPHILS 22.8 % (42.8-82.8); PLATELET COUNT 196 K/MM3 (134-434); RDW 23.4 % (11.9-15.9); WHITE BLOOD COUNT 2.6 K/mm3 (4.0-10.0)
[2017-02-08 06:40] LABS: ALBUMIN 2.8 g/dl (3.4-5.0); ANION GAP 6 (8-16); CALCIUM 8.4 mg/dL (8.5-10.1); CO2 26 mmol/L (21-32); GLUCOSE,RANDOM 80 mg/dL (74-106); PHOSPHOROUS 2.6 mg/dL (2.5-4.9); SGOT/AST 17 U/L (15-37); SGPT/ALT 15 U/L (12-78)
[2017-02-08 06:42] LABS: ALK PHOS 108 U/L (45-117); BILIRUBIN,TOTAL 0.2 mg/dL (0.2-1.0); CREATININE 0.9 mg/dL (0.7-1.3); TOT PROT 5.7 g/dl (6.4-8.2)
[2017-02-08] MEDS: HEPARIN NA (PORCINE) 5,000 UNITS/ML 1ML VIAL SQ SCH ×3 (06:52→23:01)
--- NOTE | 2017-02-08 07:07 | PN ---
Progress Note, Physician Chief Complaint: ID Remains afebrile and no antibiotics given nor needed Offers no complaints - Current Medication List Current Medications: Active Medications Alprazolam (Xanax -) 0.5 mg PO BID PRN PRN Reason: ANXIETY Chlorpromazine HCl (Thorazine Injection -) 25 mg IM Q4H PRN PRN Reason: NAUSEA AND/OR VOMITING Last Admin: 02/06/17 01:00 Dose: 25 mg Fluticasone Propionate (Flonase -) 2 spray NS DAILY [facility] Last Admin: 02/07/17 21:23 Dose: 2 spray Heparin Sodium (Porcine) (Heparin -) 5,000 unit SQ TID [facility] Last Admin: 02/08/17 06:52 Dose: 5,000 unit Sodium Chloride (1/2 Normal Saline) 1,000 mls @ 100 mls/hr IV ASDIR [facility] Last Admin: 02/07/17 06:58 Dose: 100 mls/hr Loratadine (Claritin -) 10 mg PO DAILY [facility] Last Admin: 02/07/17 21:23 Dose: 10 mg Ondansetron HCl (Zofran Injection) 4 mg IVPUSH Q6H PRN PRN Reason: NAUSEA AND/OR VOMITING Ranitidine HCl (Zantac -) 150 mg PO BID [facility] Last Admin: 02/07/17 21:34 Dose: 150 mg Sodium Chloride ([place]al [place] -) 2 spray NS TID PRN PRN Reason: NASAL CONGESTION - Objective Vital Signs: Vital Signs Temperature 98.4 F 02/08/17 06:00 Pulse Rate 58 L 02/08/17 06:00 Respiratory Rate 18 02/08/17 06:00 Blood Pressure 160/60 02/08/17 06:00 O2 Sat by Pulse Oximetry (%) 98 02/07/17 19:50 Constitutional: Yes: Well Nourished, No Distress HENT: Yes: WNL, Atraumatic Neck: Yes: WNL, Supple Cardiovascular: Yes: Regular Rate and Rhythm, S1, S2. No: Murmur Respiratory: Yes: WNL, Regular, CTA Bilaterally. No: Rales, Rhonchi Gastrointestinal: Yes: WNL, Normal Bowel Sounds, Soft. No: Tenderness, Tenderness, Rebound Edema: No Labs: CBC, BMP 02/08/17 05:05 02/08/17 05:05 Problem List - Problems (1) AML (acute myeloblastic leukemia) Code(s): C92.00 - ACUTE MYELOBLASTIC LEUKEMIA, NOT HAVING ACHIEVED REMISSION Qualifiers: Leukemia Active/Remission status: without remission Qualified Code(s ): C92.00 - Acute myeloblastic leukemia, not having achieved remission (2) Hyponatremia Code(s): E87.1 - HYPO-OSMOLALITY AND HYPONATREMIA (3) Nausea & vomiting Code(s): R11.2 - NAUSEA WITH VOMITING, UNSPECIFIED Assessment/Plan Microbiology 02/05/17 22:07 Urine - Urine Clean Catch Urine Culture - Final 02/05/17 22:07 Blood - Peripheral Venous Blood Culture - Preliminary NO GROWTH OBTAINED AFTER 48 HOURS, INCUBATION TO CONTINUE FOR 3 DAYS. 02/05/17 21:50 Blood - Peripheral Venous Blood Culture - Preliminary NO GROWTH OBTAINED AFTER 48 HOURS, INCUBATION TO CONTINUE FOR 3 DAYS. Laboratory Tests 02/08/17 02/08/17 05:05 05:05 WBC 2.6 L Hgb 8.9 L Hct 25.8 L Plt Count 196 BUN 9 Creatinine 0.9 Assessment Acute Leukemia ( declines chemotherapy) Hyponatremia correcting Presyncope- volume related Plan At this point no need for ID involvement therefore will sing off Please recall for any fever Would not use prophylactic antimicrobials at this point given patients wishes not to prolong life Deysi WOODWARD
--- NOTE | 2017-02-08 08:28 | PN ---
Progress Note, Physician Chief Complaint: no distress TELE: RICHMONDR with [facility] - Current Medication List Current Medications: Active Medications Alprazolam (Xanax -) 0.5 mg PO BID PRN PRN Reason: ANXIETY Chlorpromazine HCl (Thorazine Injection -) 25 mg IM Q4H PRN PRN Reason: NAUSEA AND/OR VOMITING Last Admin: 02/06/17 01:00 Dose: 25 mg Fluticasone Propionate (Flonase -) 2 spray NS DAILY [facility] Last Admin: 02/07/17 21:23 Dose: 2 spray Heparin Sodium (Porcine) (Heparin -) 5,000 unit SQ TID [facility] Last Admin: 02/08/17 06:52 Dose: 5,000 unit Sodium Chloride (1/2 Normal Saline) 1,000 mls @ 100 mls/hr IV ASDIR [facility] Last Admin: 02/07/17 06:58 Dose: 100 mls/hr Loratadine (Claritin -) 10 mg PO DAILY [facility] Last Admin: 02/07/17 21:23 Dose: 10 mg Ondansetron HCl (Zofran Injection) 4 mg IVPUSH Q6H PRN PRN Reason: NAUSEA AND/OR VOMITING Ranitidine HCl (Zantac -) 150 mg PO BID [facility] Last Admin: 02/07/17 21:34 Dose: 150 mg Sodium Chloride ([place] Nasal [place] -) 2 spray NS TID PRN PRN Reason: NASAL CONGESTION - Objective Vital Signs: Vital Signs Temperature 98.4 F 02/08/17 06:00 Pulse Rate 58 L 02/08/17 06:00 Respiratory Rate 22 02/08/17 08:00 Blood Pressure 139/57 02/08/17 08:00 O2 Sat by Pulse Oximetry (%) 96 02/08/17 08:06 Constitutional: Yes: Calm Eyes: Yes: Conjunctiva Clear Cardiovascular: Yes: Regular Rate and Rhythm Respiratory: Yes: CTA Bilaterally Gastrointestinal: Yes: Soft (non-tender) Edema: No Neurological: Yes: Alert Labs: CBC, BMP 02/08/17 05:05 02/08/17 05:05 Laboratory Tests 02/08/17 02/08/17 05:05 05:05 WBC 2.6 L Hgb 8.9 L Plt Count 196 Sodium 129 L Potassium 4.6 D Creatinine 0.9 - ....Imaging EKG: Image Reviewed Assessment/Plan IMP: Symptomatic hyponatremia and volume depletion leading to presyncope 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 Wenkebach most probably not the cause of his presyncopal episode which was probably due to volume depletion and hyponatremia. 2. Even if there is evidence of higher grade AV block (which has not been case on 48 hours of telemetry), I do not think he would want a PPM, does not want any invasive procedures. It would also be an infection risk given his leukopenia and immunocompromised state.
--- NOTE | 2017-02-08 09:07 | PN ---
Progress Note (short form) - Note Progress Note: RENAL Pt is awake and alert denies complaints feels well Last Vital Signs Temp Pulse Resp BP Pulse Ox 98.4 F 58 L 22 139/57 96 02/08/17 06:00 02/08/17 06:00 02/08/17 08:00 02/08/17 08:00 02/08/17 08:06 heent pupils equal cvs s1s2 rr lungs clear abd soft ext no edema neuro a+ox3 CBC, BMP 02/08/17 05:05 02/08/17 05:05 Current Medications Generic Name Dose Route Start Last Admin Trade Name Freq PRN Reason Stop Dose Admin Alprazolam 0.5 mg 02/06/17 18:40 Xanax - PO BID PRN ANXIETY Chlorpromazine HCl 25 mg 02/06/17 00:38 02/06/17 01:00 Thorazine Injection - IM 25 mg Q4H PRN Administration NAUSEA AND/OR VOMITING Fluticasone Propionate 2 spray 02/07/17 20:00 02/07/17 21:23 Flonase - NS 2 spray DAILY [facility] Administration Heparin Sodium (Porcine) 5,000 unit 02/06/17 06:00 02/08/17 06:52 Heparin - SQ 5,000 unit TID [facility] Administration Sodium Chloride 1,000 mls @ 100 mls/hr 02/07/17 07:00 02/07/17 06:58 1/2 Normal Saline IV 100 mls/hr ASDIR [facility] Administration Loratadine 10 mg 02/07/17 19:45 02/07/17 21:23 Claritin - PO 10 mg DAILY [facility] Administration Ondansetron HCl 4 mg 02/06/17 00:54 Zofran Injection IVPUSH Q6H PRN NAUSEA AND/OR VOMITING Ranitidine HCl 150 mg 02/07/17 22:00 02/07/17 21:34 Zantac - PO 150 mg BID [facility] Administration Sodium Chloride 2 spray 02/07/17 19:46 [place] Nasal [place] - NS TID PRN NASAL CONGESTION IMPRESSION hyponatremia improved likely adrenal insufficiency, probably from not taking his prednisone s/p fall likely from hyponatremia PLAN continue fluids monitor urine output if sodium starts dropping again once fluids are stopped would give mineralocorticoid repeat urine sodium MV
[2017-02-08] MEDS: RANITIDINE HCL 150 MG TABLET (FP) PO SCH ×2 (09:11→23:01)
[2017-02-08] MEDS: LORATADINE 10 MG TABLET PO SCH (09:11)
[2017-02-08] MEDS: SODIUM CHLORIDE 0.45% 1,000 ML IV SCH ×3 (09:11→23:08)
--- NOTE | 2017-02-08 10:44 | PN ---
Progress Note, BUNDLE BREAKER - Note Progress Note: Pt reports tolerating puree but disliking it. He reports belching less but continued belching demonstrated. He is not alternating with liquids, as suggested because he doesnt want to urinate a lot. Selected Entries 02/06/17 02/07/17 02/07/17 20:00 02:00 06:00 Supper 75% Temperature 98.2 F 98.4 F 02/07/17 02/07/17 02/07/17 10:00 14:00 19:08 Supper 50% Temperature 97.8 F 97.4 F L 02/07/17 02/07/17 02/08/17 19:50 20:00 02:00 Supper 50% Temperature 97.9 F 98 F 02/08/17 06:00 Supper Temperature 98.4 F Laboratory Tests 02/07/17 02/08/17 05:05 05:05 WBC 2.2 L 2.6 L Reviewed with PMD. For MBS/consider GI.
[2017-02-08] MEDS ORDERED: HEMOQUE TEST 1 EACH EACH ONE (11:11)
--- NOTE | 2017-02-08 12:15 | PN ---
Teaching Attending Note Name of Resident: Sarwat Langley ATTENDING PHYSICIAN STATEMENT I saw and evaluated the patient. I reviewed the resident's note and discussed the case with the resident. I agree with the resident's findings and plan as documented. SUBJECTIVE: Patient seen and examined in the ICU. Awake and alert. Denies CP or SOB. Feels like he is urinating frequently. Na improved to 129. Intake & Output 02/05/17 02/06/17 02/07/17 02/08/17 23:59 23:59 23:59 23:59 Intake Total 50 2350 2350 Output Total 740 1740 Balance 50 1610 610 Weight 178 lb 9.6 oz 178 lb 14.4 oz 178 lb 9.6 oz 173 lb 11.2 oz Last Vital Signs Temp Pulse Resp BP Pulse Ox 98.4 F 58 L 22 139/57 96 02/08/17 06:00 02/08/17 06:00 02/08/17 08:00 02/08/17 08:00 02/08/17 08:06 Active Medications Alprazolam (Xanax -) 0.5 mg PO BID PRN PRN Reason: ANXIETY Chlorpromazine HCl (Thorazine Injection -) 25 mg IM Q4H PRN PRN Reason: NAUSEA AND/OR VOMITING Last Admin: 02/06/17 01:00 Dose: 25 mg Fluticasone Propionate (Flonase -) 2 spray NS DAILY [facility] Last Admin: 02/07/17 21:23 Dose: 2 spray Heparin Sodium (Porcine) (Heparin -) 5,000 unit SQ TID [facility] Last Admin: 02/08/17 06:52 Dose: 5,000 unit Sodium Chloride (1/2 Normal Saline) 1,000 mls @ 100 mls/hr IV ASDIR [facility] Last Admin: 02/08/17 09:11 Dose: 100 mls/hr Loratadine (Claritin -) 10 mg PO DAILY [facility] Last Admin: 02/08/17 09:11 Dose: 10 mg Ondansetron HCl (Zofran Injection) 4 mg IVPUSH Q6H PRN PRN Reason: NAUSEA AND/OR VOMITING Ranitidine HCl (Zantac -) 150 mg PO BID [facility] Last Admin: 02/08/17 09:11 Dose: 150 mg Sodium Chloride ([place] Nasal [place] -) 2 spray NS TID PRN PRN Reason: NASAL CONGESTION Constitutional: Yes: Awake and responsive, No Distress Eyes: Yes: EOM Intact Cardiovascular: Yes: Regular Rate and Rhythm Respiratory: Yes: Diminished at the bases Gastrointestinal: Yes: Normal Bowel Sounds, Soft Neurological: Yes: Alert, Oriented Labs: Laboratory Results - last 24 hr 02/07/17 02/08/17 02/08/17 13:23 05:05 05:05 WBC 2.6 L RBC 2.96 L Hgb 8.9 L Hct 25.8 L MCV 87.0 MCH 29.9 MCHC 34.4 RDW 23.4 H Plt Count 196 MPV 6.1 L Neutrophils % 22.8 L Lymphocytes % 72.7 H Monocytes % 2.8 L Eosinophils % 1.4 Basophils % 0.3 Sodium 124 L* 129 L Potassium 3.8 4.6 D Chloride 91 L 97 L Carbon Dioxide 26 26 Anion Gap 7 L 6 L BUN 8 9 Creatinine 0.8 0.9 Creat Clearance w eGFR > 60 Random Glucose 109 H D 80 D Calcium 8.5 8.4 L Phosphorus 2.6 Magnesium 2.0 Total Bilirubin 0.2 D AST 17 D ALT 15 Alkaline Phosphatase 108 Total Protein 5.7 L Albumin 2.8 L Problem List - Problems (1) Hyponatremia Code(s): E87.1 - HYPO-OSMOLALITY AND HYPONATREMIA (2) Leukopenia Code(s): D72.819 - DECREASED WHITE BLOOD CELL COUNT, UNSPECIFIED Qualifiers: Leukopenia type: neutropenia Neutropenia type: unspecified Qualified Code(s): D70.9 - Neutropenia, unspecified (3) Hx of CABG Code(s): Z95.1 - PRESENCE OF AORTOCORONARY BYPASS GRAFT (4) Lung cancer Code(s): C34.90 - MALIGNANT NEOPLASM OF UNSP PART OF UNSP BRONCHUS OR LUNG Qualifiers: (5) Melanoma Code(s): C43.9 - MALIGNANT MELANOMA OF SKIN, UNSPECIFIED Qualifiers: (6) AML (acute myeloblastic leukemia) Code(s): C92.00 - ACUTE MYELOBLASTIC LEUKEMIA, NOT HAVING ACHIEVED REMISSION Assessment/Plan Follow Chemistry IVF : 1/2 NS Pending Urinary Na Strict I&O O2 as needed ABX per ID VTE prophylaxis DNR/DNI Dr Magallanes Critical Care Total Critical Care Time (in minutes): 35 Critical Care Statement: The care of this patient involved high complexity decision making to prevent further life threatening deterioration of the patient 's condition and/or to evalute & treat vital organ system(s) failure or risk of failure.
--- NOTE | 2017-02-08 12:27 | PN ---
Physical Exam: SUBJECTIVE: Patient has no complaint. He's urinating, passing gas and tolerating diet. No acute event overnight per nurse. OBJECTIVE: Vital Signs Period Temp Pulse Resp BP Sys/Alvares Pulse Ox Last 24 Hr 97.4 F-98.4 F 58-88 14-62 70-160/45-73 96-100 GENERAL: AAO x 3, at baseline mental status, not in any distress EYES: sclera anicteric, conjunctiva clear. LUNGS: CTAB HEART: RRR, S1, S2 without murmur, rub or gallop. ABDOMEN: Soft, nontender, nondistended, normoactive bowel sounds, no guarding, no rebound EXTREMITIES: no edema. SKIN: Warm, dry, normal turgor, no rashes or lesions noted CBC,CMP WBC 2.6 K/mm3 (4.0-10.0) L 02/08/17 05:05 RBC 2.96 M/mm3 (4.00-5.60) L 02/08/17 05:05 Hgb 8.9 GM/dL (11.7-16.9) L 02/08/17 05:05 Hct 25.8 % (35.4-49) L 02/08/17 05:05 MCV 87.0 fl (80-96) 02/08/17 05:05 MCH 29.9 pg (25.7-33.7) 02/08/17 05:05 MCHC 34.4 g/dl (32.0-35.9) 02/08/17 05:05 RDW 23.4 % (11.9-15.9) H 02/08/17 05:05 Plt Count 196 K/MM3 (134-434) 02/08/17 05:05 MPV 6.1 fl (7.5-11.1) L 02/08/17 05:05 Neutrophils % 22.8 % (42.8-82.8) L 02/08/17 05:05 Lymphocytes % 72.7 % (8-40) H 02/08/17 05:05 Monocytes % 2.8 % (3.8-10.2) L 02/08/17 05:05 Eosinophils % 1.4 % (0-4.5) 02/08/17 05:05 Basophils % 0.3 % (0-2.0) 02/08/17 05:05 Band Neutrophils 2.0 % (0-10) 02/05/17 18:21 Reactive Lymphocytes 2 % (0-80) D 02/05/17 18:21 Platelet Estimate Adequate (NORMAL) 02/05/17 18:21 Platelet Comment No clumping noted 02/05/17 18:21 Polychromasia Few 02/05/17 18:21 Hypochromic-Microcytic Few 02/05/17 18:21 Anisocytosis 2+ 02/05/17 18:21 Microcytosis 1+ 02/05/17 18:21 Ovalocytes Few 02/05/17 18:21 Sodium 129 mmol/L (136-145) L 02/08/17 05:05 Potassium 4.6 mmol/L (3.5-5.1) D 02/08/17 05:05 Chloride 97 mmol/L (98-107) L 02/08/17 05:05 Carbon Dioxide 26 mmol/L (21-32) 02/08/17 05:05 Anion Gap 6 (8-16) L 02/08/17 05:05 BUN 9 mg/dL (7-18) 02/08/17 05:05 Creatinine 0.9 mg/dL (0.7-1.3) 02/08/17 05:05 Creat Clearance w eGFR > 60 (>60) 02/08/17 05:05 POC Glucometer 122.06166 UNITS (()) 02/06/17 08:46 Random Glucose 80 mg/dL (74-106) D 02/08/17 05:05 Serum Osmolality 234 mosm/kg (278-305) L 02/05/17 22:07 Lactic Acid 1.0 mmol/L (0.4-2.0) 02/05/17 22:07 Calcium 8.4 mg/dL (8.5-10.1) L 02/08/17 05:05 Phosphorus 2.6 mg/dL (2.5-4.9) 02/08/17 05:05 Magnesium 2.0 mg/dL (1.8-2.4) 02/08/17 05:05 Total Bilirubin 0.2 mg/dL (0.2-1.0) D 02/08/17 05:05 AST 17 U/L (15-37) D 02/08/17 05:05 ALT 15 U/L (12-78) 02/08/17 05:05 Alkaline Phosphatase 108 U/L (45-117) 02/08/17 05:05 B-Natriuretic Peptide 4003.69 pg/ml (5-450) H 02/05/17 22:25 Total Protein 5.7 g/dl (6.4-8.2) L 02/08/17 05:05 Albumin 2.8 g/dl (3.4-5.0) L 02/08/17 05:05 Lipase 81 U/L (73-393) 02/05/17 18:21 TSH 2.53 uIU/ml (0.358-3.74) 02/05/17 22:07 Free T4 1.32 ng/dl (0.76-1.16) H 02/05/17 22:07 Cortisol AM Sample 8.4 ug/dL (.) 02/06/17 05:35 Intake & Output 02/05/17 02/06/17 02/07/17 02/08/17 23:59 23:59 23:59 23:59 Intake Total 50 2350 2350 Output Total 740 1740 Balance 50 1610 610 Weight 81.012 kg 81.148 kg 81.012 kg 78.789 kg Microbiology 02/05/17 22:07 Blood Culture - Preliminary Blood - Peripheral Venous NO GROWTH OBTAINED AFTER 48 HOURS, INCUBATION TO CONTINUE FOR 3 DAYS. 02/05/17 21:50 Blood Culture - Preliminary Blood - Peripheral Venous NO GROWTH OBTAINED AFTER 48 HOURS, INCUBATION TO CONTINUE FOR 3 DAYS. 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 Renal: hypotension and hyponatremia - Resolving - On 1/2NS - Cont. to trend Na+ Cardiac: syncope; 2nd degree type I heart block - Syncope 2/2 volume depletion or vasovagal - Cont. cardiac monitoring - No intervention for heart block per cardiology Neuro: lethargy and confusion - Resolved - 2/2 toxic metabolic encephalophy - Back to baseline - Cont. to monitor FEN - 1/2 NS - COnt. to trend Na+ - Dysphagia puree Prophylaxis - DVT: Heparin SQ - GI: protonix Dispo - Transfer to floor VICTORIANO Santana PGY-2 Pager: [phone] Visit type - Emergency Visit Emergency Visit: No - New Patient This patient is new to me today: No - Critical Care Critical Care patient: Yes Total Critical Care Time (in minutes): 30 Critical Care Statement: The care of this patient involved high complexity decision making to prevent further life threatening deterioration of the patient 's condition and/or to evalute & treat vital organ system(s) failure or risk of failure.
[2017-02-08] MEDS ORDERED: PT OWN MED DRAWER 7, Y5N ONE ×2 (14:34→14:53)
[2017-02-08] MEDS: FLUTICASONE PROP 0.05% 16 GM NASAL SPRAY NS SCH (14:37)
[2017-02-08] MEDS ORDERED: ONDANSETRON 4 MG/2 ML VIAL IVPUSH PRN (17:36)
[2017-02-08] MEDS ORDERED: SODIUM CHLORIDE NASAL SPRAY 44 ML BOTTLE NS PRN (17:36)
[2017-02-08] MEDS ORDERED: ALPRAZolam 0.25 MG TABLET PO PRN (17:36)
[2017-02-08] MEDS ORDERED: chlorproMAZINE HCL 25 MG/1 ML AMP IM PRN (17:36)
--- NOTE | 2017-02-08 21:38 | PN ---
Progress Note, Physician Chief Complaint: PATIENT SEEN IN ICU YESTERDAY HAD ANOTHER SYNCOPAL EVENT NO FALL - Current Medication List Current Medications: Active Medications Alprazolam (Xanax -) 0.5 mg PO BID PRN PRN Reason: ANXIETY Chlorpromazine HCl (Thorazine Injection -) 25 mg IM Q4H PRN PRN Reason: NAUSEA AND/OR VOMITING Fluticasone Propionate (Flonase -) 2 spray NS DAILY [facility] Heparin Sodium (Porcine) (Heparin -) 5,000 unit SQ TID [facility] Sodium Chloride (1/2 Normal Saline) 1,000 mls @ 100 mls/hr IV ASDIR [facility] Last Admin: 02/08/17 19:36 Dose: Not Given Loratadine (Claritin -) 10 mg PO DAILY [facility] Ondansetron HCl (Zofran Injection) 4 mg IVPUSH Q6H PRN PRN Reason: NAUSEA AND/OR VOMITING Ranitidine HCl (Zantac -) 150 mg PO BID [facility] Sodium Chloride ([place] [facility] Nasal [facility] -) 2 spray NS TID PRN PRN Reason: NASAL CONGESTION - Objective Vital Signs: Vital Signs Temperature 98.5 F 02/08/17 16:00 Pulse Rate 84 02/08/17 16:00 Respiratory Rate 20 02/08/17 19:00 Blood Pressure 130/60 02/08/17 16:00 O2 Sat by Pulse Oximetry (%) 97 02/08/17 19:00 Constitutional: Yes: Mild Distress Eyes: Yes: WNL HENT: Yes: WNL Neck: Yes: WNL Cardiovascular: Yes: WNL Respiratory: Yes: WNL Gastrointestinal: Yes: WNL Genitourinary: Yes: WNL Musculoskeletal: Yes: Muscle Weakness Extremities: Yes: Other Edema: No Peripheral Pulses WNL: Yes Integumentary: Yes: WNL Wound/Incision: Yes: Clean/Dry Neurological: Yes: Unsteady Gait, Weakness ...Motor Strength: LLE, RLE Psychiatric: Yes: WNL Labs: CBC, BMP 02/08/17 05:05 02/08/17 05:05 Problem List - Problems (1) AML (acute myeloblastic leukemia) Code(s): C92.00 - ACUTE MYELOBLASTIC LEUKEMIA, NOT HAVING ACHIEVED REMISSION Qualifiers: Leukemia Active/Remission status: without remission Qualified Code(s ): C92.00 - Acute myeloblastic leukemia, not having achieved remission (2) Hyponatremia Code(s): E87.1 - HYPO-OSMOLALITY AND HYPONATREMIA (3) Leukopenia Code(s): D72.819 - DECREASED WHITE BLOOD CELL COUNT, UNSPECIFIED Qualifiers: Leukopenia type: neutropenia Neutropenia type: unspecified Qualified Code(s): D70.9 - Neutropenia, unspecified (4) Nausea & vomiting Code(s): R11.2 - NAUSEA WITH VOMITING, UNSPECIFIED (5) Acute kidney injury Code(s): N17.9 - ACUTE KIDNEY FAILURE, UNSPECIFIED (6) Anemia Code(s): D64.9 - ANEMIA, UNSPECIFIED Qualifiers: Anemia type: unspecified type Qualified Code(s): D64.9 - Anemia, unspecified (7) Chronic diastolic (congestive) heart failure Code(s): I50.32 - CHRONIC DIASTOLIC (CONGESTIVE) HEART FAILURE (8) Dizziness Code(s): R42 - DIZZINESS AND GIDDINESS (9) Lung cancer Code(s): C34.90 - MALIGNANT NEOPLASM OF UNSP PART OF UNSP BRONCHUS OR LUNG Qualifiers: (10) Melanoma Code(s): 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
[2017-02-09] MEDS: HEPARIN NA (PORCINE) 5,000 UNITS/ML 1ML VIAL SQ SCH ×3 (06:52→22:33)
[2017-02-09] MEDS: SODIUM CHLORIDE 0.45% 1,000 ML IV SCH (08:44)
--- NOTE | 2017-02-09 09:08 | PN ---
Progress Note, Physician Chief Complaint: sitting up Denies dizziness or lightheadedness Na+ improving - Current Medication List Current Medications: Active Medications Alprazolam (Xanax -) 0.5 mg PO BID PRN PRN Reason: ANXIETY Chlorpromazine HCl (Thorazine Injection -) 25 mg IM Q4H PRN PRN Reason: NAUSEA AND/OR VOMITING Fluticasone Propionate (Flonase -) 2 spray NS DAILY [facility] Heparin Sodium (Porcine) (Heparin -) 5,000 unit SQ TID [facility] Last Admin: 02/09/17 06:52 Dose: 5,000 unit Sodium Chloride (1/2 Normal Saline) 1,000 mls @ 100 mls/hr IV ASDIR [facility] Last Admin: 02/09/17 08:44 Dose: 100 mls/hr Loratadine (Claritin -) 10 mg PO DAILY [facility] Ondansetron HCl (Zofran Injection) 4 mg IVPUSH Q6H PRN PRN Reason: NAUSEA AND/OR VOMITING Pneumococcal 13-Valent Conj Vacc (Prevnar 13 Syringe -) 0.5 ml IM .ONCE ONE Stop: 02/09/17 09:03 Ranitidine HCl (Zantac -) 150 mg PO BID [facility] Last Admin: 02/08/17 23:01 Dose: 150 mg Sodium Chloride ([place] Nasal [place] -) 2 spray NS TID PRN PRN Reason: NASAL CONGESTION - Objective Vital Signs: Vital Signs Temperature 97.5 F L 02/09/17 06:00 Pulse Rate 76 02/09/17 06:00 Respiratory Rate 18 02/09/17 06:00 Blood Pressure 126/55 02/09/17 06:00 O2 Sat by Pulse Oximetry (%) 97 02/08/17 21:00 Constitutional: Yes: No Distress, Calm Eyes: Yes: Conjunctiva Clear Cardiovascular: Yes: Regular Rate and Rhythm Respiratory: Yes: CTA Bilaterally Gastrointestinal: Yes: Soft Edema: No Neurological: Yes: Alert, Oriented Labs: CBC, BMP 02/08/17 05:05 02/08/17 05:05 Microbiology 02/05/17 22:07 Blood - Peripheral Venous Blood Culture - Preliminary NO GROWTH OBTAINED AFTER 72 HOURS, INCUBATION TO CONTINUE FOR 2 DAYS. 02/05/17 21:50 Blood - Peripheral Venous Blood Culture - Preliminary NO GROWTH OBTAINED AFTER 72 HOURS, INCUBATION TO CONTINUE FOR 2 DAYS. 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 Wenkebach most probably not the cause of his presyncopal episode which was due to volume depletion and hyponatremia. 2. Even if there was evidence of higher grade AV block (which was not seen on extended telemetry observation), I do not think he would want a PPM, does not want any invasive procedures. It would also be an infection risk given his leukopenia and immunocompromised state.
[2017-02-09] MEDS: RANITIDINE HCL 150 MG TABLET (FP) PO SCH ×2 (09:59→22:33)
[2017-02-09] MEDS: FLUTICASONE PROP 0.05% 16 GM NASAL SPRAY NS SCH (10:00)
[2017-02-09] MEDS: LORATADINE 10 MG TABLET PO SCH (10:02)
--- NOTE | 2017-02-09 10:03 | PN ---
Progress Note (short form) - Note Progress Note: RENAL Pt is awake and alert denies complaints feels well had breakfast Last Vital Signs Temp Pulse Resp BP Pulse Ox 97.5 F L 76 18 126/55 97 02/09/17 06:00 02/09/17 06:00 02/09/17 06:00 02/09/17 06:00 02/08/17 21:00 heent pupils equal cvs s1s2 rr lungs clear abd soft ext no edema neuro a+ox3 CBC, BMP 02/08/17 05:05 02/08/17 05:05 Current Medications Generic Name Dose Route Start Last Admin Trade Name Freq PRN Reason Stop Dose Admin Alprazolam 0.5 mg 02/08/17 17:36 Xanax - PO BID PRN ANXIETY Chlorpromazine HCl 25 mg 02/08/17 17:36 Thorazine Injection - IM Q4H PRN NAUSEA AND/OR VOMITING Fluticasone Propionate 2 spray 02/09/17 10:00 Flonase - NS DAILY [facility] Heparin Sodium (Porcine) 5,000 unit 02/08/17 22:00 02/09/17 06:52 Heparin - SQ 5,000 unit TID [facility] Administration Sodium Chloride 1,000 mls @ 100 mls/hr 02/08/17 17:36 02/09/17 08:44 1/2 Normal Saline IV 100 mls/hr ASDIR [facility] Administration Loratadine 10 mg 02/09/17 10:00 Claritin - PO DAILY [facility] Ondansetron HCl 4 mg 02/08/17 17:36 Zofran Injection IVPUSH Q6H PRN NAUSEA AND/OR VOMITING Pneumococcal 13-Valent Conj Vacc 0.5 ml 02/09/17 09:02 Prevnar 13 Syringe - IM 02/09/17 09:03 .ONCE ONE Ranitidine HCl 150 mg 02/08/17 22:00 02/08/17 23:01 Zantac - PO 150 mg BID [facility] Administration Sodium Chloride 2 spray 02/08/17 17:36 [place] Nasal [place] - NS TID PRN NASAL CONGESTION IMPRESSION hyponatremia improved likely adrenal insufficiency, probably from not taking his prednisone s/p fall likely from hyponatremia PLAN dc fluids continue feeding monitor urine output if sodium starts dropping again once fluids are stopped would give mineralocorticoid repeat urine sodium MV
--- NOTE | 2017-02-09 11:38 | PN ---
Progress Note, Physician Chief Complaint: asleep comfortable - Current Medication List Current Medications: Active Medications Alprazolam (Xanax -) 0.5 mg PO BID PRN PRN Reason: ANXIETY Chlorpromazine HCl (Thorazine Injection -) 25 mg IM Q4H PRN PRN Reason: NAUSEA AND/OR VOMITING Fluticasone Propionate (Flonase -) 2 spray NS DAILY [facility] Last Admin: 02/09/17 10:00 Dose: 2 sprays Heparin Sodium (Porcine) (Heparin -) 5,000 unit SQ TID [facility] Last Admin: 02/09/17 06:52 Dose: 5,000 unit Loratadine (Claritin -) 10 mg PO DAILY [facility] Last Admin: 02/09/17 10:02 Dose: 10 mg Ondansetron HCl (Zofran Injection) 4 mg IVPUSH Q6H PRN PRN Reason: NAUSEA AND/OR VOMITING Pneumococcal 13-Valent Conj Vacc (Prevnar 13 Syringe -) 0.5 ml IM .ONCE ONE Stop: 02/09/17 09:03 Ranitidine HCl (Zantac -) 150 mg PO BID [facility] Last Admin: 02/09/17 09:59 Dose: 150 mg Sodium Chloride ([place] Nasal [place] -) 2 spray NS TID PRN PRN Reason: NASAL CONGESTION - Objective Vital Signs: Vital Signs Temperature 97.5 F L 02/09/17 06:00 Pulse Rate 76 02/09/17 06:00 Respiratory Rate 18 02/09/17 06:00 Blood Pressure 126/55 02/09/17 06:00 O2 Sat by Pulse Oximetry (%) 97 02/08/17 21:00 Constitutional: Yes: No Distress, Obese HENT: Yes: WNL Neck: Yes: WNL Cardiovascular: Yes: WNL Respiratory: Yes: WNL Gastrointestinal: Yes: WNL Genitourinary: Yes: WNL Musculoskeletal: Yes: WNL, Muscle Weakness Extremities: Yes: WNL Edema: No Peripheral Pulses WNL: Yes Integumentary: Yes: WNL Wound/Incision: Yes: Clean/Dry Neurological: Yes: Unsteady Gait ...Motor Strength: LLE, RLE Labs: CBC, BMP 02/08/17 05:05 02/08/17 05:05 Problem List - Problems (1) AML (acute myeloblastic leukemia) Code(s): C92.00 - ACUTE MYELOBLASTIC LEUKEMIA, NOT HAVING ACHIEVED REMISSION Qualifiers: Leukemia Active/Remission status: without remission Qualified Code(s ): C92.00 - Acute myeloblastic leukemia, not having achieved remission (2) Hyponatremia Code(s): E87.1 - HYPO-OSMOLALITY AND HYPONATREMIA (3) Leukopenia Code(s): D72.819 - DECREASED WHITE BLOOD CELL COUNT, UNSPECIFIED Qualifiers: Leukopenia type: neutropenia Neutropenia type: unspecified Qualified Code(s): D70.9 - Neutropenia, unspecified (4) Nausea & vomiting Code(s): R11.2 - NAUSEA WITH VOMITING, UNSPECIFIED (5) Acute kidney injury Code(s): N17.9 - ACUTE KIDNEY FAILURE, UNSPECIFIED (6) Anemia Code(s): D64.9 - ANEMIA, UNSPECIFIED Qualifiers: Anemia type: unspecified type Qualified Code(s): D64.9 - Anemia, unspecified (7) Chronic diastolic (congestive) heart failure Code(s): I50.32 - CHRONIC DIASTOLIC (CONGESTIVE) HEART FAILURE (8) Dizziness Code(s): R42 - DIZZINESS AND GIDDINESS (9) Lung cancer Code(s): C34.90 - MALIGNANT NEOPLASM OF UNSP PART OF UNSP BRONCHUS OR LUNG Qualifiers: (10) Melanoma Code(s): 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
[2017-02-09] MEDS ORDERED: PNEUMOC 13-VAL CONJ-DIP CRM/PF 0.5 ML DISP.SYRIN IM ONE (12:00)
--- NOTE | 2017-02-09 12:15 | PN ---
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 Burping less. MBS reviewed with staff/pt and sister.
--- NOTE | 2017-02-09 12:57 | PN ---
Progress Note, Physician History of Present Illness: PULMONARY ALERT,SITTING UP IN BED -RESP DISTRESS - Current Medication List Current Medications: Active Medications Alprazolam (Xanax -) 0.5 mg PO BID PRN PRN Reason: ANXIETY Chlorpromazine HCl (Thorazine Injection -) 25 mg IM Q4H PRN PRN Reason: NAUSEA AND/OR VOMITING Fluticasone Propionate (Flonase -) 2 spray NS DAILY [facility] Last Admin: 02/09/17 10:00 Dose: 2 sprays Heparin Sodium (Porcine) (Heparin -) 5,000 unit SQ TID [facility] Last Admin: 02/09/17 06:52 Dose: 5,000 unit Loratadine (Claritin -) 10 mg PO DAILY [facility] Last Admin: 02/09/17 10:02 Dose: 10 mg Ondansetron HCl (Zofran Injection) 4 mg IVPUSH Q6H PRN PRN Reason: NAUSEA AND/OR VOMITING Ranitidine HCl (Zantac -) 150 mg PO BID [facility] Last Admin: 02/09/17 09:59 Dose: 150 mg Sodium Chloride ([place] Nasal [place] -) 2 spray NS TID PRN PRN Reason: NASAL CONGESTION - Objective Vital Signs: Vital Signs Temperature 97.2 F L 02/09/17 10:00 Pulse Rate 70 02/09/17 10:00 Respiratory Rate 18 02/09/17 10:00 Blood Pressure 149/82 02/09/17 10:00 O2 Sat by Pulse Oximetry (%) 97 02/08/17 21:00 Constitutional: Yes: Well Nourished, Calm Eyes: Yes: WNL HENT: Yes: WNL Neck: Yes: WNL Cardiovascular: Yes: Regular Rate and Rhythm, S1, S2 Respiratory: Yes: Diminished Gastrointestinal: Yes: Normal Bowel Sounds, Soft Extremities: Yes: WNL Edema: No Labs: CBC, BMP 02/08/17 05:05 02/08/17 05:05 Assessment/Plan ASSESSMENT AND PLAN: S/P Syncope Severe Hyponatremia improving AML - IVF per renal - monitor lytes - PO as tolerated - DVT prophylaxis DR HANSEN
[2017-02-10] MEDS: HEPARIN NA (PORCINE) 5,000 UNITS/ML 1ML VIAL SQ SCH ×3 (07:07→21:36)
[2017-02-10 08:55] LABS: ANION GAP 9 (8-16); CALCIUM 8.2 mg/dL (8.5-10.1); CO2 26 mmol/L (21-32); CREATININE 1.1 mg/dL (0.7-1.3); GLUCOSE,RANDOM 79 mg/dL (74-106)
[2017-02-10 09:13] LABS: MCH 30.2 pg (25.7-33.7); MCHC 34.6 g/dl (32.0-35.9); MEAN CELL VOLUME 87.2 fl (80-96); PLATELET COUNT 186 K/MM3 (134-434); RDW 23.4 % (11.9-15.9); WHITE BLOOD COUNT 2.7 K/mm3 (4.0-10.0)
[2017-02-10] MEDS ORDERED: PT OWN MED DRAWER 7, Y5N ONE (09:13)
[2017-02-10] MEDS: RANITIDINE HCL 150 MG TABLET (FP) PO SCH ×2 (09:14→21:36)
[2017-02-10] MEDS: LORATADINE 10 MG TABLET PO SCH (09:14)
[2017-02-10] MEDS: FLUTICASONE PROP 0.05% 16 GM NASAL SPRAY NS SCH (09:14)
[2017-02-10 09:17] LABS: MEAN PLT VOLUME 5.6 fl (7.5-11.1)
--- NOTE | 2017-02-10 09:31 | PN ---
Progress Note, Physician Chief Complaint: Na+ much improved No complaints. No CP or SOB - Current Medication List Current Medications: Active Medications Alprazolam (Xanax -) 0.5 mg PO BID PRN PRN Reason: ANXIETY Chlorpromazine HCl (Thorazine Injection -) 25 mg IM Q4H PRN PRN Reason: NAUSEA AND/OR VOMITING Fluticasone Propionate (Flonase -) 2 spray NS DAILY [facility] Last Admin: 02/10/17 09:14 Dose: 2 sprays Heparin Sodium (Porcine) (Heparin -) 5,000 unit SQ TID [facility] Last Admin: 02/10/17 07:07 Dose: 5,000 unit Loratadine (Claritin -) 10 mg PO DAILY [facility] Last Admin: 02/10/17 09:14 Dose: 10 mg Ondansetron HCl (Zofran Injection) 4 mg IVPUSH Q6H PRN PRN Reason: NAUSEA AND/OR VOMITING Ranitidine HCl (Zantac -) 150 mg PO BID [facility] Last Admin: 02/10/17 09:14 Dose: 150 mg Sodium Chloride ([place] Nasal [place] -) 2 spray NS TID PRN PRN Reason: NASAL CONGESTION - Objective Vital Signs: Vital Signs Temperature 97.9 F 02/10/17 06:00 Pulse Rate 65 02/10/17 06:00 Respiratory Rate 18 02/10/17 06:00 Blood Pressure 152/54 02/10/17 06:00 O2 Sat by Pulse Oximetry (%) 97 02/09/17 21:00 Constitutional: Yes: Calm Eyes: Yes: Conjunctiva Clear Cardiovascular: Yes: Regular Rate and Rhythm Respiratory: Yes: CTA Bilaterally Gastrointestinal: Yes: Soft Edema: No Neurological: Yes: Alert, Oriented ...Motor Strength: WNL Labs: CBC, BMP 02/10/17 06:55 02/10/17 06:55 Microbiology 02/05/17 22:07 Blood - Peripheral Venous Blood Culture - Preliminary NO GROWTH OBTAINED AFTER 96 HOURS, INCUBATION TO CONTINUE FOR 1 DAYS. 02/05/17 21:50 Blood - Peripheral Venous Blood Culture - Preliminary NO GROWTH OBTAINED AFTER 96 HOURS, INCUBATION TO CONTINUE FOR 1 DAYS. Laboratory Tests 02/10/17 02/10/17 06:55 06:55 WBC 2.7 L Hgb 8.5 L Plt Count 186 Sodium 134 L Potassium 4.3 Creatinine 1.1 D Assessment/Plan IMP: Symptomatic hyponatremia and volume depletion leading to presyncope, now resolved. 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 Wenkebach most probably not the cause of his presyncopal episode which was due to volume depletion and hyponatremia. Now resolved. 2. Even if there was evidence of higher grade AV block (which was not seen on extended telemetry observation), he does not want a PPM, does not want any invasive procedures. It would also be an infection risk given his leukopenia and immunocompromised state.
--- NOTE | 2017-02-10 09:40 | PN ---
Progress Note (short form) - Note Progress Note: RENAL Pt is awake and alert denies complaints feels well Last Vital Signs Temp Pulse Resp BP Pulse Ox 97.9 F 65 18 152/54 97 02/10/17 06:00 02/10/17 06:00 02/10/17 06:00 02/10/17 06:00 02/09/17 21:00 heent pupils equal cvs s1s2 rr lungs clear abd soft ext no edema neuro a+ox3 CBC, BMP 02/10/17 06:55 02/10/17 06:55 Current Medications Generic Name Dose Route Start Last Admin Trade Name Freq PRN Reason Stop Dose Admin Alprazolam 0.5 mg 02/08/17 17:36 Xanax - PO BID PRN ANXIETY Chlorpromazine HCl 25 mg 02/08/17 17:36 Thorazine Injection - IM Q4H PRN NAUSEA AND/OR VOMITING Fluticasone Propionate 2 spray 02/09/17 10:00 02/10/17 09:14 Flonase - NS 2 sprays DAILY MABEL Administration Heparin Sodium (Porcine) 5,000 unit 02/08/17 22:00 02/10/17 07:07 Heparin - SQ 5,000 unit TID MABEL Administration Loratadine 10 mg 02/09/17 10:00 02/10/17 09:14 Claritin - PO 10 mg DAILY MABEL Administration Ondansetron HCl 4 mg 02/08/17 17:36 Zofran Injection IVPUSH Q6H PRN NAUSEA AND/OR VOMITING Ranitidine HCl 150 mg 02/08/17 22:00 02/10/17 09:14 Zantac - PO 150 mg BID MABEL Administration Sodium Chloride 2 spray 02/08/17 17:36 [place] Nasal [place] - NS TID PRN NASAL CONGESTION IMPRESSION hyponatremia improved likely adrenal insufficiency, probably from not taking his prednisone s/p fall likely from hyponatremia PLAN continue current management feeding him and adding salt to his food should keep his sodium in normal range MV
[2017-02-10 09:57] LABS: PLATELET ESTIMATE ADEQUATE (NORMAL)
--- NOTE | 2017-02-10 10:42 | PN ---
Progress Note, Physician History of Present Illness: feels better - Current Medication List Current Medications: Active Medications Alprazolam (Xanax -) 0.5 mg PO BID PRN PRN Reason: ANXIETY Chlorpromazine HCl (Thorazine Injection -) 25 mg IM Q4H PRN PRN Reason: NAUSEA AND/OR VOMITING Fluticasone Propionate (Flonase -) 2 spray NS DAILY [facility] Last Admin: 02/10/17 09:14 Dose: 2 sprays Heparin Sodium (Porcine) (Heparin -) 5,000 unit SQ TID [facility] Last Admin: 02/10/17 07:07 Dose: 5,000 unit Loratadine (Claritin -) 10 mg PO DAILY [facility] Last Admin: 02/10/17 09:14 Dose: 10 mg Ondansetron HCl (Zofran Injection) 4 mg IVPUSH Q6H PRN PRN Reason: NAUSEA AND/OR VOMITING Ranitidine HCl (Zantac -) 150 mg PO BID [facility] Last Admin: 02/10/17 09:14 Dose: 150 mg Sodium Chloride ([place] Nasal [place] -) 2 spray NS TID PRN PRN Reason: NASAL CONGESTION - Objective Vital Signs: Vital Signs Temperature 97.9 F 02/10/17 06:00 Pulse Rate 65 02/10/17 06:00 Respiratory Rate 18 02/10/17 06:00 Blood Pressure 152/54 02/10/17 06:00 O2 Sat by Pulse Oximetry (%) 97 02/09/17 21:00 Cardiovascular: Yes: Regular Rate and Rhythm Respiratory: Yes: Regular, CTA Bilaterally Gastrointestinal: Yes: Normal Bowel Sounds, Soft. No: Tenderness Labs: CBC, BMP 02/10/17 06:55 02/10/17 06:55 Problem List - Problems (1) Hyponatremia Assessment/Plan: improving monitor Code(s): E87.1 - HYPO-OSMOLALITY AND HYPONATREMIA (2) AML (acute myeloblastic leukemia) Code(s): C92.00 - ACUTE MYELOBLASTIC LEUKEMIA, NOT HAVING ACHIEVED REMISSION Qualifiers: Leukemia Active/Remission status: without remission Qualified Code(s ): C92.00 - Acute myeloblastic leukemia, not having achieved remission (3) Anemia Assessment/Plan: stable Code(s): D64.9 - ANEMIA, UNSPECIFIED Qualifiers: Anemia type: unspecified type Qualified Code(s): D64.9 - Anemia, unspecified (4) Syncope and collapse Assessment/Plan: probaly due to hyponatremia pt dc planning Code(s): R55 - SYNCOPE AND COLLAPSE
--- NOTE | 2017-02-10 11:42 | PN ---
Progress Note (short form) - Note Progress Note: Feels OK today. No CP or SOB. No acute events overnight. Intake & Output 02/07/17 02/08/17 02/09/17 02/10/17 23:59 23:59 23:59 23:59 Intake Total 2350 410 2440 Output Total 1740 1250 350 Balance 589 396 2940 -350 Weight 178 lb 9.6 oz 173 lb 11.2 oz Last Vital Signs Temp Pulse Resp BP Pulse Ox 98.2 F 78 18 159/68 97 02/10/17 10:00 02/10/17 10:00 02/10/17 10:00 02/10/17 10:00 02/09/17 21:00 Active Medications Alprazolam (Xanax -) 0.5 mg PO BID PRN PRN Reason: ANXIETY Chlorpromazine HCl (Thorazine Injection -) 25 mg IM Q4H PRN PRN Reason: NAUSEA AND/OR VOMITING Fluticasone Propionate (Flonase -) 2 spray NS DAILY [facility] Last Admin: 02/10/17 09:14 Dose: 2 sprays Heparin Sodium (Porcine) (Heparin -) 5,000 unit SQ TID [facility] Last Admin: 02/10/17 07:07 Dose: 5,000 unit Loratadine (Claritin -) 10 mg PO DAILY [facility] Last Admin: 02/10/17 09:14 Dose: 10 mg Ondansetron HCl (Zofran Injection) 4 mg IVPUSH Q6H PRN PRN Reason: NAUSEA AND/OR VOMITING Ranitidine HCl (Zantac -) 150 mg PO BID [facility] Last Admin: 02/10/17 09:14 Dose: 150 mg Sodium Chloride ([place] Nasal [place] -) 2 spray NS TID PRN PRN Reason: NASAL CONGESTION Constitutional: Yes: NAD Eyes: Yes: WNL HENT: Yes: WNL Neck: Yes: WNL Cardiovascular: Yes: Regular Rate and Rhythm, S1, S2 Respiratory: Yes: Diminished at the bases Gastrointestinal: Yes: Normal Bowel Sounds, Soft Extremities: Yes: WNL Edema: No Labs: Laboratory Results - last 24 hr 02/10/17 02/10/17 06:55 06:55 WBC 2.7 L RBC 2.80 L Hgb 8.5 L Hct 24.4 L MCV 87.2 MCH 30.2 MCHC 34.6 RDW 23.4 H Plt Count 186 MPV 5.6 L Neutrophils % 20.0 L Lymphocytes % 73.0 H Monocytes % 1.0 L Eosinophils % 3.0 D Differential Comment Slide scanned Reactive Lymphocytes 3 D Platelet Estimate Adequate Sodium 134 L Potassium 4.3 Chloride 99 Carbon Dioxide 26 Anion Gap 9 BUN 15 D Creatinine 1.1 D Random Glucose 79 Calcium 8.2 L Assessment/Plan ASSESSMENT AND PLAN: S/P Syncope Severe Hyponatremia improving AML Problem List - Problems (1) Hyponatremia Code(s): E87.1 - HYPO-OSMOLALITY AND HYPONATREMIA (2) Leukopenia Code(s): D72.819 - DECREASED WHITE BLOOD CELL COUNT, UNSPECIFIED Qualifiers: Leukopenia type: neutropenia Neutropenia type: unspecified Qualified Code(s): D70.9 - Neutropenia, unspecified (3) Hx of CABG Code(s): Z95.1 - PRESENCE OF AORTOCORONARY BYPASS GRAFT (4) Lung cancer Code(s): C34.90 - MALIGNANT NEOPLASM OF UNSP PART OF UNSP BRONCHUS OR LUNG Qualifiers: (5) Melanoma Code(s): C43.9 - MALIGNANT MELANOMA OF SKIN, UNSPECIFIED Qualifiers: (6) AML (acute myeloblastic leukemia) Code(s): C92.00 - ACUTE MYELOBLASTIC LEUKEMIA, NOT HAVING ACHIEVED REMISSION Assessment/Plan PO ass tolerated Off IVF O2 as needed Off ABX VTE prophylaxis DNR/DNI Dr Magallanes
[2017-02-11] MEDS: HEPARIN NA (PORCINE) 5,000 UNITS/ML 1ML VIAL SQ SCH ×3 (06:34→21:48)
[2017-02-11] MEDS ORDERED: PT OWN MED DRAWER 7, Y5N ONE (09:31)
[2017-02-11] MEDS: RANITIDINE HCL 150 MG TABLET (FP) PO SCH ×2 (09:44→21:47)
[2017-02-11] MEDS: LORATADINE 10 MG TABLET PO SCH (09:44)
[2017-02-11] MEDS: FLUTICASONE PROP 0.05% 16 GM NASAL SPRAY NS SCH (09:45)
--- NOTE | 2017-02-11 09:51 | PN ---
Progress Note (short form) - Note Progress Note: RENAL Pt is awake and alert denies complaints feels well Last Vital Signs Temp Pulse Resp BP Pulse Ox 98.4 F 69 20 149/70 96 02/11/17 06:00 02/11/17 06:00 02/11/17 06:00 02/11/17 06:00 02/10/17 21:00 heent pupils equal cvs s1s2 rr lungs clear abd soft ext no edema neuro a+ox3 CBC, BMP 02/10/17 06:55 02/10/17 06:55 Current Medications Generic Name Dose Route Start Last Admin Trade Name Freq PRN Reason Stop Dose Admin Alprazolam 0.5 mg 02/08/17 17:36 Xanax - PO BID PRN ANXIETY Chlorpromazine HCl 25 mg 02/08/17 17:36 Thorazine Injection - IM Q4H PRN NAUSEA AND/OR VOMITING Fluticasone Propionate 2 spray 02/09/17 10:00 02/11/17 09:45 Flonase - NS 2 sprays DAILY [facility]ABEL Administration Heparin Sodium (Porcine) 5,000 unit 02/08/17 22:00 02/11/17 06:34 Heparin - SQ 5,000 unit TID MABEL Administration Loratadine 10 mg 02/09/17 10:00 02/11/17 09:44 Claritin - PO 10 mg DAILY [facility]ABEL Administration Ondansetron HCl 4 mg 02/08/17 17:36 Zofran Injection IVPUSH Q6H PRN NAUSEA AND/OR VOMITING Ranitidine HCl 150 mg 02/08/17 22:00 02/11/17 09:44 Zantac - PO 150 mg BID MABEL Administration Sodium Chloride 2 spray 02/08/17 17:36 [place] Nasal [place] - NS TID PRN NASAL CONGESTION IMPRESSION hyponatremia improved likely adrenal insufficiency, probably from not taking his prednisone s/p fall likely from hyponatremia PLAN continue current management feeding him and adding salt to his food should keep his sodium in normal range no objection to discharge in am MV
--- NOTE | 2017-02-11 11:14 | PN ---
Progress Note, Physician - Current Medication List Current Medications: Active Medications Alprazolam (Xanax -) 0.5 mg PO BID PRN PRN Reason: ANXIETY Chlorpromazine HCl (Thorazine Injection -) 25 mg IM Q4H PRN PRN Reason: NAUSEA AND/OR VOMITING Fluticasone Propionate (Flonase -) 2 spray NS DAILY [facility] Last Admin: 02/11/17 09:45 Dose: 2 sprays Heparin Sodium (Porcine) (Heparin -) 5,000 unit SQ TID [facility] Last Admin: 02/11/17 06:34 Dose: 5,000 unit Loratadine (Claritin -) 10 mg PO DAILY [facility] Last Admin: 02/11/17 09:44 Dose: 10 mg Ondansetron HCl (Zofran Injection) 4 mg IVPUSH Q6H PRN PRN Reason: NAUSEA AND/OR VOMITING Ranitidine HCl (Zantac -) 150 mg PO BID [facility] Last Admin: 02/11/17 09:44 Dose: 150 mg Sodium Chloride ([place] Nasal [place] -) 2 spray NS TID PRN PRN Reason: NASAL CONGESTION - Objective Vital Signs: Vital Signs Temperature 98.4 F 02/11/17 06:00 Pulse Rate 69 02/11/17 06:00 Respiratory Rate 20 02/11/17 06:00 Blood Pressure 149/70 02/11/17 06:00 O2 Sat by Pulse Oximetry (%) 96 02/10/17 21:00 Labs: CBC, BMP 02/10/17 06:55 02/10/17 06:55 Problem List - Problems (1) Hyponatremia Assessment/Plan: improving monitor Code(s): E87.1 - HYPO-OSMOLALITY AND HYPONATREMIA (2) AML (acute myeloblastic leukemia) Code(s): C92.00 - ACUTE MYELOBLASTIC LEUKEMIA, NOT HAVING ACHIEVED REMISSION Qualifiers: Leukemia Active/Remission status: without remission Qualified Code(s ): C92.00 - Acute myeloblastic leukemia, not having achieved remission (3) Anemia Assessment/Plan: stable Code(s): D64.9 - ANEMIA, UNSPECIFIED Qualifiers: Anemia type: unspecified type Qualified Code(s): D64.9 - Anemia, unspecified (4) Syncope and collapse Assessment/Plan: probaly due to hyponatremia pt dc planning Code(s): R55 - SYNCOPE AND COLLAPSE Assessment/Plan PHYSICAL THERAPY--DC PLANNING
--- NOTE | 2017-02-11 11:27 | PN ---
Progress Note (short form) - Note Progress Note: Patient seen and examined. He feels well, He denies any complains. O/E: General: In NAD HEENT: No palor noted, normal mucous membranes Lungs: CTA b/l Abdomen: soft Non tender LE: no edema Neuro: Alert ,oriented and awake x3. Last Vital Signs Temp Pulse Resp BP Pulse Ox 98.4 F 69 20 149/70 96 02/11/17 06:00 02/11/17 06:00 02/11/17 06:00 02/11/17 06:00 02/10/17 21:00 CBC, BMP 02/10/17 06:55 02/10/17 06:55 Current Medications Generic Name Dose Route Start Last Admin Trade Name Freq PRN Reason Stop Dose Admin Alprazolam 0.5 mg 02/08/17 17:36 Xanax - PO BID PRN ANXIETY Chlorpromazine HCl 25 mg 02/08/17 17:36 Thorazine Injection - IM Q4H PRN NAUSEA AND/OR VOMITING Fluticasone Propionate 2 spray 02/09/17 10:00 02/11/17 09:45 Flonase - NS 2 sprays DAILY MABEL Administration Heparin Sodium (Porcine) 5,000 unit 02/08/17 22:00 02/11/17 06:34 Heparin - SQ 5,000 unit TID MABEL Administration Loratadine 10 mg 02/09/17 10:00 02/11/17 09:44 Claritin - PO 10 mg DAILY MABEL Administration Ondansetron HCl 4 mg 02/08/17 17:36 Zofran Injection IVPUSH Q6H PRN NAUSEA AND/OR VOMITING Ranitidine HCl 150 mg 02/08/17 22:00 02/11/17 09:44 Zantac - PO 150 mg BID MABEL Administration Sodium Chloride 2 spray 02/08/17 17:36 [place] Nasal [place] - NS TID PRN NASAL CONGESTION Assessment/Plan: AML ( On supportive care): -Patient diagnosed in [facility] [place] with AML -Pt decided not have any treatment for his AML -Supportive care -Oppurtunistic infection ppx with levaquin and voricanazole ( to be continued upon discharge) -pt will f/u in the office upon discharge Hyponatremia: -Now resolved -renal f/u Syncope: -no further episodes. Problem List - Problems (1) AML (acute myeloblastic leukemia) Code(s): C92.00 - ACUTE MYELOBLASTIC LEUKEMIA, NOT HAVING ACHIEVED REMISSION Qualifiers: Leukemia Active/Remission status: without remission Qualified Code(s ): C92.00 - Acute myeloblastic leukemia, not having achieved remission (2) Hyponatremia Code(s): E87.1 - HYPO-OSMOLALITY AND HYPONATREMIA (3) Nausea & vomiting Code(s): R11.2 - NAUSEA WITH VOMITING, UNSPECIFIED (4) Syncope Code(s): R55 - SYNCOPE AND COLLAPSE
--- NOTE | 2017-02-11 11:46 | PN ---
Progress Note (short form) - Note Progress Note: Feels OK. No CP or SOB. No acute events overnight. Intake & Output 02/08/17 02/09/17 02/10/17 02/11/17 23:59 23:59 23:59 23:59 Intake Total 410 2440 860 Output Total 1250 600 Balance 410 1190 260 Weight 173 lb 11.2 oz Last Vital Signs Temp Pulse Resp BP Pulse Ox 98.4 F 69 20 149/70 96 02/11/17 06:00 02/11/17 06:00 02/11/17 06:00 02/11/17 06:00 02/10/17 21:00 Active Medications Alprazolam (Xanax -) 0.5 mg PO BID PRN PRN Reason: ANXIETY Chlorpromazine HCl (Thorazine Injection -) 25 mg IM Q4H PRN PRN Reason: NAUSEA AND/OR VOMITING Fluticasone Propionate (Flonase -) 2 spray NS DAILY [facility] Last Admin: 02/11/17 09:45 Dose: 2 sprays Heparin Sodium (Porcine) (Heparin -) 5,000 unit SQ TID [facility] Last Admin: 02/11/17 06:34 Dose: 5,000 unit Loratadine (Claritin -) 10 mg PO DAILY [facility] Last Admin: 02/11/17 09:44 Dose: 10 mg Ondansetron HCl (Zofran Injection) 4 mg IVPUSH Q6H PRN PRN Reason: NAUSEA AND/OR VOMITING Ranitidine HCl (Zantac -) 150 mg PO BID [facility] Last Admin: 02/11/17 09:44 Dose: 150 mg Sodium Chloride ([place] Nasal [place] -) 2 spray NS TID PRN PRN Reason: NASAL CONGESTION Constitutional: Yes: NAD Eyes: Yes: WNL HENT: Yes: WNL Neck: Yes: WNL Cardiovascular: Yes: Regular Rate and Rhythm, S1, S2 Respiratory: Yes: Diminished at the bases Gastrointestinal: Yes: Normal Bowel Sounds, Soft Extremities: Yes: WNL Edema: No Labs: Assessment/Plan ASSESSMENT AND PLAN: S/P Syncope Severe Hyponatremia improving AML Problem List - Problems (1) Hyponatremia Code(s): E87.1 - HYPO-OSMOLALITY AND HYPONATREMIA (2) Leukopenia Code(s): D72.819 - DECREASED WHITE BLOOD CELL COUNT, UNSPECIFIED Qualifiers: Leukopenia type: neutropenia Neutropenia type: unspecified Qualified Code(s): D70.9 - Neutropenia, unspecified (3) Hx of CABG Code(s): Z95.1 - PRESENCE OF AORTOCORONARY BYPASS GRAFT (4) Lung cancer Code(s): C34.90 - MALIGNANT NEOPLASM OF UNSP PART OF UNSP BRONCHUS OR LUNG Qualifiers: (5) Melanoma Code(s): C43.9 - MALIGNANT MELANOMA OF SKIN, UNSPECIFIED Qualifiers: (6) AML (acute myeloblastic leukemia) Code(s): C92.00 - ACUTE MYELOBLASTIC LEUKEMIA, NOT HAVING ACHIEVED REMISSION Assessment/Plan PO as tolerated Off IVF O2 as needed Off ABX VTE prophylaxis DNR/DNI D/C planning Dr Magallanes
[2017-02-11] MEDS ORDERED: LEVOFLOXACIN 500 MG TABLET (FP) PO SCH (13:45)
[2017-02-11] MEDS ORDERED: POLYETHYLENE GLYCOL 3350 255 GM BTL PO ONE (14:35)
[2017-02-11] MEDS ORDERED: POLYETHYLENE GLYCOL 3350 119 GM BTL PO ONE (14:37)
[2017-02-11] MEDS ORDERED: VORICONAZOLE 200 MG TABLET (RESTRICTED TO ID) PO ONE (14:45)
[2017-02-11] MEDS ORDERED: VORICONAZOLE 200 MG TABLET (RESTRICTED TO ID) PO SCH (22:00)
[2017-02-12] MEDS: HEPARIN NA (PORCINE) 5,000 UNITS/ML 1ML VIAL SQ SCH ×3 (06:18→22:22)
[2017-02-12] MEDS ORDERED: PT OWN MED DRAWER 7, Y5N ONE (10:13)
[2017-02-12] MEDS: FLUTICASONE PROP 0.05% 16 GM NASAL SPRAY NS SCH (10:32)
[2017-02-12] MEDS: RANITIDINE HCL 150 MG TABLET (FP) PO SCH ×2 (10:32→22:22)
[2017-02-12] MEDS: LORATADINE 10 MG TABLET PO SCH (10:32)
[2017-02-12] MEDS: POLYETHYLENE GLYCOL 3350 119 GM BTL PO SCH (10:33)
--- NOTE | 2017-02-12 12:31 | PN ---
Progress Note, LINE SERVER - Note Progress Note: Selected Entries 02/08/17 02/08/17 02/08/17 02:00 06:00 10:00 Breakfast Lunch Supper Temperature 98 F 98.4 F 98 F 02/08/17 02/08/17 02/08/17 13:44 14:00 16:00 Breakfast 50% Lunch Supper Temperature 98.2 F 98.5 F 02/08/17 02/08/17 02/11/17 18:16 22:16 06:00 Breakfast Lunch Supper 75% Temperature 98 F 98.4 F 02/11/17 02/11/17 02/11/17 15:07 15:08 17:55 Breakfast 100% Lunch 100% Supper 100% Temperature 98.3 F 02/11/17 02/12/17 18:05 06:00 Breakfast Lunch Supper Temperature 98.3 F 98.1 F Laboratory Tests 02/10/17 06:55 WBC 2.7 L Looks much stronger. Appetite and PO tolerance much improved.
--- NOTE | 2017-02-12 12:41 | PN ---
Progress Note, Physician History of Present Illness: Pt seen and examined at bedside. He is awake and alert. He denies shortness of breath. - Current Medication List Current Medications: Active Medications Chlorpromazine HCl (Thorazine Injection -) 25 mg IM Q4H PRN PRN Reason: NAUSEA AND/OR VOMITING Fluticasone Propionate (Flonase -) 2 spray NS DAILY [facility] Last Admin: 02/12/17 10:32 Dose: 2 sprays Heparin Sodium (Porcine) (Heparin -) 5,000 unit SQ TID [facility] Last Admin: 02/12/17 06:18 Dose: 5,000 unit Loratadine (Claritin -) 10 mg PO DAILY [facility] Last Admin: 02/12/17 10:32 Dose: 10 mg Polyethylene Glycol (Miralax (For Daily Use) -) 17 gm PO DAILY [facility] Last Admin: 02/12/17 10:33 Dose: 17 grams Ranitidine HCl (Zantac -) 150 mg PO BID [facility] Last Admin: 02/12/17 10:32 Dose: 150 mg Sodium Chloride ([place] Nasal [place] -) 2 spray NS TID PRN PRN Reason: NASAL CONGESTION - Objective Vital Signs: Vital Signs Temperature 98.1 F 02/12/17 06:00 Pulse Rate 65 02/12/17 06:00 Respiratory Rate 20 02/12/17 06:00 Blood Pressure 128/55 02/12/17 06:00 O2 Sat by Pulse Oximetry (%) 98 02/11/17 09:00 Constitutional: Yes: Calm Eyes: Yes: Conjunctiva Clear HENT: Yes: Atraumatic Neck: Yes: Supple Cardiovascular: Yes: S1, S2 Respiratory: Yes: CTA Bilaterally Gastrointestinal: Yes: Soft Musculoskeletal: Yes: WNL Edema: No Neurological: Yes: Oriented Psychiatric: Yes: Oriented Labs: CBC, BMP 02/10/17 06:55 02/10/17 06:55 Problem List - Problems (1) Hyponatremia Code(s): E87.1 - HYPO-OSMOLALITY AND HYPONATREMIA Assessment/Plan Current Medications Generic Name Dose Route Start Last Admin Trade Name Freq PRN Reason Stop Dose Admin Chlorpromazine HCl 25 mg 02/08/17 17:36 Thorazine Injection - IM Q4H PRN NAUSEA AND/OR VOMITING Fluticasone Propionate 2 spray 02/09/17 10:00 02/12/17 10:32 Flonase - NS 2 sprays DAILY MABEL Administration Heparin Sodium (Porcine) 5,000 unit 02/08/17 22:00 02/12/17 06:18 Heparin - SQ 5,000 unit TID MABEL Administration Loratadine 10 mg 02/09/17 10:00 02/12/17 10:32 Claritin - PO 10 mg DAILY MABEL Administration Polyethylene Glycol 17 gm 02/12/17 10:00 02/12/17 10:33 Miralax (For Daily Use) - PO 17 grams DAILY MABEL Administration Ranitidine HCl 150 mg 02/08/17 22:00 02/12/17 10:32 Zantac - PO 150 mg BID MABEL Administration Sodium Chloride 2 spray 02/08/17 17:36 [place]al [place] - NS TID PRN NASAL CONGESTION Laboratory Tests 02/05/17 02/05/17 02/05/17 22:07 22:07 22:07 Sodium Serum Osmolality 234 L Urine Osmolality 301 Ur Random Sodium 82 02/06/17 01:00 Sodium 112 L* Serum Osmolality Urine Osmolality Ur Random Sodium Laboratory Tests 02/05/17 02/06/17 22:07 05:35 TSH 2.53 Cortisol AM Sample 8.4 Impression 1. hyponatremia 2. anemia 3. leukopenia 4. hx lung cancer 5. hx melanoma 6. CAD 7. 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
--- NOTE | 2017-02-12 18:04 | DS ---
Physical Examination Vital Signs: Vital Signs Temperature 97.5 F L 02/12/17 14:38 Pulse Rate 76 02/12/17 14:38 Respiratory Rate 18 02/12/17 14:38 Blood Pressure 142/61 02/12/17 14:38 O2 Sat by Pulse Oximetry (%) 98 02/12/17 09:00 Constitutional: Yes: Mild Distress Eyes: Yes: WNL HENT: Yes: WNL Neck: Yes: WNL Cardiovascular: Yes: WNL Respiratory: Yes: WNL Gastrointestinal: Yes: WNL Musculoskeletal: Yes: Muscle Weakness Extremities: Yes: WNL Edema: No Peripheral Pulses WNL: Yes Integumentary: Yes: WNL Wound/Incision: Yes: Clean/Dry Neurological: Yes: Weakness ...Motor Strength: LLE, RLE Psychiatric: Yes: WNL Labs: CBC, BMP 02/10/17 06:55 02/10/17 06:55 Discharge Summary Reason For Visit: HYPONATREMIA,LEUKOPENIA Current Active Problems AML (acute myeloblastic leukemia) (Acute) Hyponatremia (Acute) Leukopenia (Acute) Nausea & vomiting (Acute) Syncope and collapse (Acute) SIADH SYNDROME Procedures: Principal: CT SCANS Other Procedures: LABS Hospital Course: ADMITTED SYNCOPE/WEAKNESS, WITH HYPONATREMIA, IN ICU, MDD REFUSING CHEMOTHERAPY , IVF GIVEN SLOWLY, IV ABX, WILL MONITOR OUTPATIENT WITH HOME NURSE SERVICE, WALKER FOR AMBULATION, FALL PRECAUTIONS DISCUSSED WILL DISCUSS WITH FAMILY. PATIENT IS DNR/DNI DOES NOT WANT TO BE TREATED FOR MDD. Condition: Guarded - Instructions Diet, Activity, Other Instructions: REG DIET Referrals: Vonda Negron MD [Primary Care Provider] - Disposition: VNS/HOME HEALTH CARE - Home Medications Comprehensive Discharge Medication List: Ambulatory Orders Allopurinol [Zyloprim -] 100 mg PO DAILY 12/11/16 Aspirin [ASA -] 81 mg PO DAILY 12/11/16 Colchicine [Colcrys -] 0.6 mg PO DAILY #30 tablet 12/14/16 Alprazolam [Xanax] 1 tab PO BID PRN 01/24/17 Prednisone 1 tab PO DAILY 01/24/17 Voriconazole [Vfend] 1 tab PO BID 01/24/17 Alprazolam [Xanax] 0.5 mg PO BID PRN #0 tablet MDD 2 02/12/17 Fluticasone Prop 0.05% Nasal [Flonase -] 2 spray NS DAILY #1 spray 02/12/17 Loratadine [Claritin -] 10 mg PO DAILY #30 tablet 02/12/17 Polyethylene Glycol 3350 [Miralax 119 gm Btl -] 17 gm PO DAILY bottle 02/12/17 Ranitidine [Zantac -] 150 mg PO BID #60 tablet 02/12/17 Sodium Chloride Nasal [place] [[place] Nasal [place] -] 2 spray NS TID PRN #0 spray MDD 6 02/12/17
[2017-02-13] MEDS: HEPARIN NA (PORCINE) 5,000 UNITS/ML 1ML VIAL SQ SCH ×3 (06:30→22:49)
[2017-02-13 07:33] LABS: MCH 30.2 pg (25.7-33.7); MEAN CELL VOLUME 88.9 fl (80-96); PLATELET COUNT 156 K/MM3 (134-434); RDW 23.7 % (11.9-15.9); WHITE BLOOD COUNT 2.4 K/mm3 (4.0-10.0)
[2017-02-13 07:38] LABS: MEAN PLT VOLUME 5.8 fl (7.5-11.1)
[2017-02-13 08:16] LABS: ANION GAP 9 (8-16); CALCIUM 8.3 mg/dL (8.5-10.1); CO2 25 mmol/L (21-32); CREATININE 1.1 mg/dL (0.7-1.3); GLUCOSE,RANDOM 86 mg/dL (74-106)
[2017-02-13] MEDS ORDERED: PT OWN MED DRAWER 7, Y5N ONE (09:22)
[2017-02-13] MEDS: POLYETHYLENE GLYCOL 3350 119 GM BTL PO SCH (09:44)
[2017-02-13] MEDS: FLUTICASONE PROP 0.05% 16 GM NASAL SPRAY NS SCH (09:44)
[2017-02-13] MEDS: LORATADINE 10 MG TABLET PO SCH (09:44)
[2017-02-13] MEDS: RANITIDINE HCL 150 MG TABLET (FP) PO SCH ×2 (09:44→22:49)
--- NOTE | 2017-02-13 11:13 | PN ---
Progress Note (short form) - Note Progress Note: Feels fine. No CP or SOB. No acute events overnight. Intake & Output 02/10/17 02/11/17 02/12/17 02/13/17 23:59 23:59 23:59 23:59 Intake Total 391 582 4663 100 Output Total 600 650 Balance 190 05 1756 100 Last Vital Signs Temp Pulse Resp BP Pulse Ox 98.4 F 70 20 141/65 98 02/13/17 06:00 02/13/17 06:00 02/13/17 06:00 02/13/17 06:00 02/12/17 21:00 Active Medications Chlorpromazine HCl (Thorazine Injection -) 25 mg IM Q4H PRN PRN Reason: NAUSEA AND/OR VOMITING Fluticasone Propionate (Flonase -) 2 spray NS DAILY [facility] Last Admin: 02/13/17 09:44 Dose: 2 sprays Heparin Sodium (Porcine) (Heparin -) 5,000 unit SQ TID [facility] Last Admin: 02/13/17 06:30 Dose: 5,000 unit Loratadine (Claritin -) 10 mg PO DAILY [facility] Last Admin: 02/13/17 09:44 Dose: 10 mg Polyethylene Glycol (Miralax (For Daily Use) -) 17 gm PO DAILY [facility] Last Admin: 02/13/17 09:44 Dose: 17 grams Ranitidine HCl (Zantac -) 150 mg PO BID [facility] Last Admin: 02/13/17 09:44 Dose: 150 mg Sodium Chloride ([place] Nasal [place] -) 2 spray NS TID PRN PRN Reason: NASAL CONGESTION Constitutional: Yes: NAD Eyes: Yes: WNL HENT: Yes: WNL Neck: Yes: WNL Cardiovascular: Yes: Regular Rate and Rhythm, S1, S2 Respiratory: Yes: Diminished at the bases Gastrointestinal: Yes: Normal Bowel Sounds, Soft Extremities: Yes: WNL Edema: No Labs: Laboratory Results - last 24 hr 02/13/17 02/13/17 06:20 06:20 WBC 2.4 L RBC 2.56 L Hgb 7.7 L Hct 22.7 L MCV 88.9 MCH 30.2 MCHC 34.0 RDW 23.7 H Plt Count 156 MPV 5.8 L Sodium 136 Potassium 4.5 Chloride 102 Carbon Dioxide 25 Anion Gap 9 BUN 26 H D Creatinine 1.1 Random Glucose 86 Calcium 8.3 L Assessment/Plan ASSESSMENT AND PLAN: S/P Syncope Severe Hyponatremia improving AML Problem List - Problems (1) Hyponatremia Code(s): E87.1 - HYPO-OSMOLALITY AND HYPONATREMIA (2) Leukopenia Code(s): D72.819 - DECREASED WHITE BLOOD CELL COUNT, UNSPECIFIED Qualifiers: Leukopenia type: neutropenia Neutropenia type: unspecified Qualified Code(s): D70.9 - Neutropenia, unspecified (3) Hx of CABG Code(s): Z95.1 - PRESENCE OF AORTOCORONARY BYPASS GRAFT (4) Lung cancer Code(s): C34.90 - MALIGNANT NEOPLASM OF UNSP PART OF UNSP BRONCHUS OR LUNG Qualifiers: (5) Melanoma Code(s): C43.9 - MALIGNANT MELANOMA OF SKIN, UNSPECIFIED Qualifiers: (6) AML (acute myeloblastic leukemia) Code(s): C92.00 - ACUTE MYELOBLASTIC LEUKEMIA, NOT HAVING ACHIEVED REMISSION Assessment/Plan PO as tolerated O2 as needed Off ABX VTE prophylaxis DNR/DNI D/C planning Dr Magallanes
[2017-02-13 11:59] LABS: ANISOCYTOSIS 2+; MICROCYTOSIS 1+; TEAR DROP CELLS 1+
--- NOTE | 2017-02-13 14:14 | PN ---
Progress Note, Physician History of Present Illness: Pt seen and examined at bedside. He is awake and alert. - Current Medication List Current Medications: Active Medications Chlorpromazine HCl (Thorazine Injection -) 25 mg IM Q4H PRN PRN Reason: NAUSEA AND/OR VOMITING Fluticasone Propionate (Flonase -) 2 spray NS DAILY [facility] Last Admin: 02/13/17 09:44 Dose: 2 sprays Heparin Sodium (Porcine) (Heparin -) 5,000 unit SQ TID [facility] Last Admin: 02/13/17 06:30 Dose: 5,000 unit Loratadine (Claritin -) 10 mg PO DAILY [facility] Last Admin: 02/13/17 09:44 Dose: 10 mg Polyethylene Glycol (Miralax (For Daily Use) -) 17 gm PO DAILY [facility] Last Admin: 02/13/17 09:44 Dose: 17 grams Ranitidine HCl (Zantac -) 150 mg PO BID [facility] Last Admin: 02/13/17 09:44 Dose: 150 mg Sodium Chloride ([place] Nasal [place] -) 2 spray NS TID PRN PRN Reason: NASAL CONGESTION - Objective Vital Signs: Vital Signs Temperature 98.4 F 02/13/17 06:00 Pulse Rate 70 02/13/17 06:00 Respiratory Rate 20 02/13/17 06:00 Blood Pressure 141/65 02/13/17 06:00 O2 Sat by Pulse Oximetry (%) 98 02/12/17 21:00 Constitutional: Yes: Calm Eyes: Yes: Conjunctiva Clear HENT: Yes: Atraumatic Neck: Yes: Supple Cardiovascular: Yes: S1, S2 Respiratory: Yes: CTA Bilaterally Gastrointestinal: Yes: Soft Musculoskeletal: Yes: WNL Edema: No Neurological: Yes: Oriented Psychiatric: Yes: Oriented Labs: CBC, BMP 02/13/17 06:20 02/13/17 06:20 Problem List - Problems (1) Hyponatremia Code(s): E87.1 - HYPO-OSMOLALITY AND HYPONATREMIA Assessment/Plan Current Medications Generic Name Dose Route Start Last Admin Trade Name Freq PRN Reason Stop Dose Admin Chlorpromazine HCl 25 mg 02/08/17 17:36 Thorazine Injection - IM Q4H PRN NAUSEA AND/OR VOMITING Fluticasone Propionate 2 spray 02/09/17 10:00 02/13/17 09:44 Flonase - NS 2 sprays DAILY [facility] Administration Heparin Sodium (Porcine) 5,000 unit 02/08/17 22:00 02/13/17 06:30 Heparin - SQ 5,000 unit TID [facility] Administration Loratadine 10 mg 02/09/17 10:00 02/13/17 09:44 Claritin - PO 10 mg DAILY [facility] Administration Polyethylene Glycol 17 gm 02/12/17 10:00 02/13/17 09:44 Miralax (For Daily Use) - PO 17 grams DAILY [facility] Administration Ranitidine HCl 150 mg 02/08/17 22:00 02/13/17 09:44 Zantac - PO 150 mg BID [facility] Administration Sodium Chloride 2 spray 02/08/17 17:36 [place] Nasal [place] - NS TID PRN NASAL CONGESTION Impression 1. hyponatremia 2. anemia 3. leukopenia 4. hx lung cancer 5. hx melanoma 6. CAD 7. gout Plan - sodium has stabilized - cont fluid restriction - will need outpt follow up - osms and urine studies are consistent with siadh - will follow Dr rBay
--- NOTE | 2017-02-13 16:38 | PN ---
Progress Note (short form) - Note Progress Note: patient staying for transfusion prbc. willr echeck labs in am Problem List - Problems (1) AML (acute myeloblastic leukemia) Code(s): C92.00 - ACUTE MYELOBLASTIC LEUKEMIA, NOT HAVING ACHIEVED REMISSION Qualifiers: Leukemia Active/Remission status: without remission Qualified Code(s ): C92.00 - Acute myeloblastic leukemia, not having achieved remission (2) Hyponatremia Code(s): E87.1 - HYPO-OSMOLALITY AND HYPONATREMIA (3) Leukopenia Code(s): D72.819 - DECREASED WHITE BLOOD CELL COUNT, UNSPECIFIED Qualifiers: Leukopenia type: neutropenia Neutropenia type: unspecified Qualified Code(s): D70.9 - Neutropenia, unspecified (4) Nausea & vomiting Code(s): R11.2 - NAUSEA WITH VOMITING, UNSPECIFIED (5) Acute kidney injury Code(s): N17.9 - ACUTE KIDNEY FAILURE, UNSPECIFIED (6) Anemia Code(s): D64.9 - ANEMIA, UNSPECIFIED Qualifiers: Anemia type: unspecified type Qualified Code(s): D64.9 - Anemia, unspecified (7) Chronic diastolic (congestive) heart failure Code(s): I50.32 - CHRONIC DIASTOLIC (CONGESTIVE) HEART FAILURE (8) Dizziness Code(s): R42 - DIZZINESS AND GIDDINESS (9) Lung cancer Code(s): C34.90 - MALIGNANT NEOPLASM OF UNSP PART OF UNSP BRONCHUS OR LUNG Qualifiers: (10) Melanoma Code(s): C43.9 - MALIGNANT MELANOMA OF SKIN, UNSPECIFIED Qualifiers: (11) Weakness generalized Code(s): R53.1 - WEAKNESS (12) Syncope and collapse Code(s): R55 - SYNCOPE AND COLLAPSE
[2017-02-14] MEDS: HEPARIN NA (PORCINE) 5,000 UNITS/ML 1ML VIAL SQ SCH (06:41)
[2017-02-14 08:40] LABS: MCH 30.1 pg (25.7-33.7); MCHC 34.5 g/dl (32.0-35.9); MEAN CELL VOLUME 87.4 fl (80-96); MEAN PLT VOLUME 5.9 fl (7.5-11.1); PLATELET COUNT 145 K/MM3 (134-434); RDW 20.3 % (11.9-15.9); WHITE BLOOD COUNT 2.5 K/mm3 (4.0-10.0)
[2017-02-14 08:56] LABS: ANION GAP 6 (8-16); CALCIUM 8.2 mg/dL (8.5-10.1); CO2 27 mmol/L (21-32); GLUCOSE,RANDOM 79 mg/dL (74-106)
[2017-02-14] MEDS: RANITIDINE HCL 150 MG TABLET (FP) PO SCH (09:31)
[2017-02-14] MEDS: FLUTICASONE PROP 0.05% 16 GM NASAL SPRAY NS SCH (09:32)
[2017-02-14] MEDS: LORATADINE 10 MG TABLET PO SCH (09:32)
[2017-02-14] MEDS: POLYETHYLENE GLYCOL 3350 119 GM BTL PO SCH (09:34)
[2017-02-14 10:12] VITALS: BP 154/67; PULSE 68; TEMP 98.4
== END 2017-02-14 11:48 | disposition home health service (06) | DRG 834 ==
LOC: JER 17:01 → JERBED 21:04 → JICU 22:50 → J5S 02-08 17:02
PROVIDERS: ADMIT Family Medicine; ATTEND Family Medicine
PROC: 30233N1 Transfusion of Nonautologous Red Blood Cells into Peripheral Vein, Percutaneous Approach (ICD-10-PCS; principal; 2017-02-12)
DX: C92.00 Acute myeloblastic leukemia, not having achieved remission (principal); G93.41 Metabolic encephalopathy; E87.1 Hypo-osmolality and hyponatremia; C34.90 Malignant neoplasm of unspecified part of unspecified bronchus or lung; I50.30 Unspecified diastolic (congestive) heart failure; N17.9 Acute kidney failure, unspecified; E27.49 Other adrenocortical insufficiency; D70.9 Neutropenia, unspecified; I25.10 Atherosclerotic heart disease of native coronary artery without angina pectoris; M10.9 Gout, unspecified; I11.0 Hypertensive heart disease with heart failure; I44.7 Left bundle-branch block, unspecified; I44.1 Atrioventricular block, second degree; R55 Syncope and collapse; R00.1 Bradycardia, unspecified; R11.2 Nausea with vomiting, unspecified; Z87.891 Personal history of nicotine dependence; Z95.1 Presence of aortocoronary bypass graft; Z66 Do not resuscitate
CPT/HCPCS: 36415; 36430; 71010-TC; 74230-TC; 80048; 80053; 81003; 81015; 82436; 82533; 83605; 83690; 83735; 83880; 83930; 83935; 84100; 84133; 84300; 84439; 84443; 85025; 85027; 86850; 86900; 86901; 86922; 87040; 87086; 92611-GN; 93005; 93010; 97116-GP; 97161-GP; 99285-25; J1644; P9038; P9058

== ENCOUNTER 2017-05-17 13:54 | Inpatient (IN) | payer OTHER, MEDICARE ==
--- NOTE | 2017-05-17 14:06 | PDOC ---
History of Present Illness <Gaby Pedersen - Last Filed: 05/17/17 18:22> - History of Present Illness Initial Comments: 81 year old male BIBA from home with PMH of gout, leukemia (untreated currently ), CAD (s/p triple bypass), and HTN presenting to the ED s/p a syncopal episode at home. He was found at home by EMS on the floor with multiple abrasions and contusions. He states that he may have passed out prior to falling but is unsure, he does remember feeling lightheaded. No recent fevers, chills, nausea, vomiting, diarrhea, headache symptoms, GI symptoms, chest pain, SOB, or dizziness (besides recent episode). His habilitation worker is Dr. Wall and Primary care is Dr. Negron. 05/17/17 16:09 <Scott Patino - Last Filed: 05/17/17 23:55> - General Stated Complaint: SYNCOPE Time Seen by Provider: 05/17/17 14:05 Past History <Gaby Pedersen - Last Filed: 05/17/17 18:22> - Past Medical History Cancer: Yes (LUNG S/P NODULE,MELANOMA,LEUKEMIA) Cardiac Disorders: Yes (BYPASS TRIPLE) HTN: Yes - Surgical History Cardiac Surgery: Yes (bypass) - Suicide/Smoking/Psychosocial Hx Smoking History: Former smoker Have you smoked in the past 12 months: No If you are a former smoker, when did you quit?: 12 YRS Hx Alcohol Use: No Drug/Substance Use Hx: No Substance Use Type: None <Scott Patino - Last Filed: 05/17/17 23:55> - Past Medical History Allergies/Adverse Reactions: Allergies Allergy/AdvReac Type Severity Reaction Status Date / Time No Known Allergies Allergy Verified 05/17/17 19:20 Home Medications: Ambulatory Orders Allopurinol [Zyloprim -] 100 mg PO DAILY 12/11/16 Aspirin [ASA -] 81 mg PO DAILY 12/11/16 Alprazolam [Xanax] 0.5 mg PO BID PRN #0 tablet MDD 2 02/12/17 Levofloxacin [Levaquin -] 250 mg PO DAILY 05/17/17 Ranitidine [Zantac -] 150 mg PO BID 05/17/17 Tramadol HCl [Ultram] 50 mg PO QID PRN 05/17/17 Voriconazole 200 mg PO BID 05/17/17 Review of Systems - Review of Systems Constitutional: No: Chills, Diaphoresis, Fever HEENTM: No: Blurred Vision Respiratory: No: Cough, Shortness of Breath Cardiac (ROS): No: Chest Pain ABD/GI: No: Nausea, Vomiting : No: Burning, Dysuria Musculoskeletal: Yes: Back Pain Integumentary: Yes: Bruising, Lesions <Scott Patino - Last Filed: 05/17/17 23:55> *Physical Exam - Vital Signs Last Vital Signs Temp Pulse Resp BP Pulse Ox 98.1 F 75 20 150/65 99 05/17/17 14:05 05/17/17 17:57 05/17/17 14:05 05/17/17 17:57 05/17/17 17:57 <Gaby Pedersen - Last Filed: 05/17/17 18:22> - Physical Exam General Appearance: Yes: Nourished, Appropriately Dressed. No: Apparent Distress HEENT: positive: EOMI, RUBY, Normal ENT Inspection, Normal Voice Neck: positive: Tender (tender cervical spine), Trachea midline, Normal Thyroid , Supple. negative: Rigid Respiratory/Chest: positive: Lungs Clear, Normal Breath Sounds. negative: Chest Tender, Respiratory Distress, Accessory Muscle Use Cardiovascular: positive: Regular Rhythm, Regular Rate. negative: Murmur Gastrointestinal/Abdominal: positive: Normal Bowel Sounds, Flat, Soft. negative : Tender Musculoskeletal: positive: Vertebral Tenderness (thoracic , lumbar, and sacral spine). negative: Normal Inspection Extremity: positive: Normal Range of Motion. negative: Normal Inspection ( abrasion on elbow) Integumentary: positive: Dry, Warm. negative: Normal Color (abrasion over elbow and forehead) Neurologic: positive: Fully Oriented, Alert, Normal Mood/Affect, Normal Response , Motor Strength 5/5 <Scott Patino - Last Filed: 05/17/17 23:55> ED Treatment Course - LABORATORY CBC & Chemistry Diagram: 05/17/17 14:55 05/17/17 14:55 - ADDITIONAL ORDERS Additional order review: Laboratory Results 05/17/17 05/17/17 05/17/17 15:14 14:55 14:55 PTT (Actin FS) Sodium Potassium Chloride Carbon Dioxide Anion Gap BUN Creatinine Creat Clearance w eGFR Random Glucose Lactic Acid 2.1 H* Calcium Magnesium Total Bilirubin AST ALT Alkaline Phosphatase Creatine Kinase Creatine Kinase Index CK-MB (CK-2) Troponin I Total Protein Albumin Urine Color Yellow Urine Appearance Cloudy Urine pH 8.0 Urine Protein 1+ H Urine Glucose (UA) Negative Urine Ketones 1+ H Urine Blood 2+ H Urine Nitrite Negative Urine Bilirubin Negative Urine Urobilinogen Negative Urine RBC 1 Urine WBC 11 Urine Bacteria Few Urine Mucus Rare Blood Type A POSITIVE Antibody Screen Negative 05/17/17 05/17/17 14:55 14:55 PTT (Actin FS) 29.8 Sodium 135 L Potassium 3.2 L D Chloride 97 L Carbon Dioxide 23 Anion Gap 15 BUN 18 Creatinine 1.3 D Creat Clearance w eGFR 52.85 Random Glucose 103 D Lactic Acid Calcium 9.0 Magnesium 2.2 Total Bilirubin 0.6 D AST 30 D ALT 15 Alkaline Phosphatase 135 H D Creatine Kinase 977 H Creatine Kinase Index 0.7 CK-MB (CK-2) 7.466 H Troponin I 0.11 H D Total Protein 7.3 D Albumin 4.1 D Urine Color Urine Appearance Urine pH Urine Protein Urine Glucose (UA) Urine Ketones Urine Blood Urine Nitrite Urine Bilirubin Urine Urobilinogen Urine RBC Urine WBC Urine Bacteria Urine Mucus Blood Type Antibody Screen 05/17/17 14:55 RBC 3.65 L MCV 90.5 MCHC 35.4 RDW 15.9 D MPV 5.9 L Neutrophils % 72.0 D Lymphocytes % 12.9 D Monocytes % 14.4 H D Eosinophils % 0.2 D Basophils % 0.5 - Medications Given in the ED: ED Medications Discontinued Medications Generic Name Dose Route Start Last Admin Trade Name Freq PRN Reason Stop Dose Admin Potassium Chloride 100 mls @ 100 mls/hr 05/17/17 16:00 05/17/17 17:50 Potassium Chloride 10 Meq Premix Ivpb - IVPB 05/17/17 17:59 100 mls/hr Q60M [facility] Administration Sodium Chloride 1,000 ml 05/17/17 14:41 05/17/17 15:13 Normal Saline - IV 05/17/17 14:42 1,000 ml ONCE ONE Administration <Gaby Pedersen - Last Filed: 05/17/17 18:22> - LABORATORY CBC & Chemistry Diagram: 05/17/17 14:55 05/17/17 14:55 <Scott Patino - Last Filed: 05/17/17 23:55> Medical Decision Making - Medical Decision Making 05/17/17 18:[address] Negron [phone] <Gaby Pedersen - Last Filed: 05/17/17 18:22> - Medical Decision Making 81 Y/O M with Leukemia and presenting s/p syncopal episode and fall. He is overall well appearing and not complaining of chest pain. He does have a positive Troponin of 0.11 with old LBBB pattern and Left axis deviation leading to most likely diagnosis of NSTEMI. Lead strip was read as AFib by the paramedics, incorrectly. This is Either type I or II. Patient admitted to [facility] with cardiac consult called to Dr. Bernard covering for Dr. Glass. Dr. Bernard called and communicated with us that the diagnosis of PE should be explored potentially, however, the patient is not tachycardic and and complaining of shortness of breath currently. this information was passed onto the FINANCIAL REPORT SERVICE SALES AGENT of Dr. Negron as he was already admitted prior to receiving the call. Will defer to their judgment. Head CT and spinal films were negative so 324 of aspirin was given. 05/17/17 16:17 <Scott Patino - Last Filed: 05/17/17 23:55> *DC/Admit/Observation/Transfer <Gaby Pedersen - Last Filed: 05/17/17 18:22> <Scott Patino - Last Filed: 05/17/17 23:55> Diagnosis at time of Disposition: Hypokalemia, NSTEMI (non-ST elevated myocardial infarction) Syncope Qualifiers: Syncope type: unspecified Qualified Code(s): R55 - Syncope and collapse; R55 - Syncope and collapse - Discharge Dispostion Condition at time of disposition: Guarded - Referrals
--- NOTE | 2017-05-17 14:38 | PDOC ---
Attending Attestation - [facility] HPI: 05/17/17 14:38 The patient is a 81 year old male, BIBA from home with a significant past medical history of gout, leukemia (not undergoing any chemo or tx), and HTN , who presents to the emergency department s/p syncopal episode at home. EMS reports finding the patient on the floor in his bedroom with various abrasions and bruises. The patient notes just prior to losing consciousness having complaints of lightheadedness. He denies any recent fevers, chills, headache or dizziness. He denies any recent nausea, vomit, diarrhea or constipation. He denies any recent chest pain or shortness of breath. He denies any recent dysuria, frequency, urgency or hematuria. Allergies: NKA Past surgical history: Triple Bypass Social History: Nonsmoker. Denies EtOH use and recreational drug use. Primary Care Physician: Cardiology: Oncologist: - Physicial Exam PE: 05/17/17 14:38 Constitutional: Awake, alert, oriented. No acute distress. Head: Normocephalic. Atraumatic Eyes: PERRL. EOMI. Conjunctivae are not pale. ENT: Mucous membranes are moist and intact. Posterior pharynx without exudates or erythema. Uvula midline. Neck: Supple. Full ROM. No lymphadenopathy. Cardiovascular: Irregularly irregular rate. Regular rhythm. S1, S2 regular. Distal pulses are 2+ and symmetric. Pulmonary/Chest: No evidence of respiratory distress. Clear to auscultation bilaterally No wheezing, rales or rhonchi. Abdominal: Soft and non-distended. There is no tenderness. No rebound, guarding or rigidity. No organomegaly. No palpable masses. Good bowel sounds. Back: Cervical, thoracic and lumbar tenderness. Musculoskeletal: No edema. No cyanosis. No clubbing. Full range of motion in all extremities. No calf tenderness. Radial/pedal pulses are intact and 2+ bilaterally Skin: +Abrasion to the left side of his head. Abrasion left forearm. Abrasion left knee. Skin is warm and dry. No petechiae. No purpura. Neurological: Alert and oriented to person, place, and time. Cranial nerves II -XII are grossly intact. Normal speech. Strength is grossly symmetric. No sensory deficits. Psychiatric: Good eye contact. Normal interaction, affect and behavior. <Kavon Ngo - Last Filed: 05/17/17 14:38> - Medical Decision Making 05/17/17 15:[address] Irene [phone] 05/17/17 15:[address] Irene overhead. <Gaby Pedersen - Last Filed: 05/17/17 15:51> - Resident Resident Name: Scott Patino - ED Attending Attestation I have performed the following: I have examined & evaluated the patient, The case was reviewed & discussed with the resident, I agree w/resident's findings & plan, Exceptions are as noted - Critical Care Time Total Critical Care Time: 30 Critical Care Statement: The care of this patient involved high complexity decision making to prevent further life threatening deterioration of the patient 's condition and/or to evaluate & treat vital organ system(s) failure or risk of failure. - Medical Decision Making 05/17/17 14:38 I, Dr. Tanika Lee, DO, attest that this document has been prepared under my direction and personally reviewed by me in its entirety. I further attest, that it accurately reflects all work, treatment, procedures and medical decision -making performed by me. 05/17/17 15:47 a/p: 81yo male found down on the ground -unsure if mechanical fall vs syncope -no cp -hx leukemia -will check all labs, ekg, cxr, ct head/c spine, xrays back, ua -per medics new onset afib on ekg, ekg in ED shows LBBB with PVCs, no afib hx of hyponatremia and hx of anemia requiring transfusion 05/17/17 15:49 pt with elevated trop on labs, concern for cardiac cause of poss syncope, call placed to Dr. Irene 05/17/17 16:[address] Negron - accepts pt to service. Agrees with [facility] for cardio. 05/17/17 16:[address] lamb from cardiology who will see the patient in consult. <Tanika Lee - Last Filed: 05/17/17 16:24> Discharge Disposition <Kavon Ngo - Last Filed: 05/17/17 14:38> <Gaby Pedersen - Last Filed: 05/17/17 15:51> - Discharge Dispostion Last Admission D/C Date: 02/14/17 Admit: Yes <Tanika Lee - Last Filed: 05/17/17 16:24> - Diagnosis Syncope, Hypokalemia, NSTEMI (non-ST elevated myocardial infarction) - Discharge Dispostion Condition at time of disposition: Guarded - Referrals Referrals: Vonda Negron MD [Primary Care Provider] -
[2017-05-17] MEDS ORDERED: SODIUM CHLORIDE 0.9% 1000 ML INFUS.BAG IV ONE (14:41)
[2017-05-17 15:17] LABS: BASOPHIL 0.5 % (0-2.0); EOSINOPHIL 0.2 % (0-4.5); MCH 32.1 pg (25.7-33.7); MCHC 35.4 g/dl (32.0-35.9); MEAN CELL VOLUME 90.5 fl (80-96); MEAN PLT VOLUME 5.9 fl (7.5-11.1); PLATELET COUNT 221 K/MM3 (134-434); RDW 15.9 % (11.9-15.9)
[2017-05-17 15:39] LABS: ALBUMIN 4.1 g/dl (3.4-5.0); ANION GAP 15 (8-16); BILIRUBIN,TOTAL 0.6 mg/dL (0.2-1.0); CO2 23 mmol/L (21-32); CREATININE 1.3 mg/dL (0.7-1.3); GLUCOSE,RANDOM 103 mg/dL (74-106); MAGNESIUM 2.2 mg/dL (1.8-2.4); SGOT/AST 30 U/L (15-37); SGPT/ALT 15 U/L (12-78)
[2017-05-17 15:43] LABS: ALK PHOS 135 U/L (45-117); CPK 977 IU/L (39-308); TOT PROT 7.3 g/dl (6.4-8.2); TROPONIN I 0.11 ng/ml (0.00-0.05)
[2017-05-17 15:53] LABS: URINE APPEARANCE CLOUDY; URINE BILIRUBIN NEGATIVE (NEGATIVE); URINE BLOOD 2+ (NEGATIVE); URINE COLOR YELLOW; URINE GLUCOSE (UA) NEGATIVE (NEGATIVE); URINE KETONE 1+ (NEGATIVE); URINE NITRITE NEGATIVE (NEGATIVE); URINE PROTEIN 1+ (NEGATIVE); URINE UROBILINOGEN NEGATIVE mg/dL (0.2-1.0)
[2017-05-17 16:36] LABS: URINE BACTERIA FEW /hpf (NONE SEEN); URINE MUCUS RARE; URINE RBC 1 /hpf (0-3); URINE WBC 11 /hpf (3-5)
[2017-05-17] MEDS ORDERED: KCL 10 MEQ IVPB 100 ML IVPB ONE ×2 (17:43→21:16)
[2017-05-17] MEDS: KCL 10 MEQ IVPB 100 ML IVPB SCH ×2 (17:50→21:24)
[2017-05-17 19:12] LABS: URINE LEUK ESTERASE Negative (NEGATIVE)
[2017-05-17] MEDS ORDERED: SODIUM CHLORIDE NASAL SPRAY 44 ML BOTTLE NS PRN (19:19)
[2017-05-17] MEDS ORDERED: ALPRAZolam 0.25 MG TABLET PO PRN (19:19)
[2017-05-17] MEDS ORDERED: ACETAMINOPHEN 325 MG TABLET (FP) PO PRN (19:19)
--- NOTE | 2017-05-17 19:21 | HP ---
Admitting History and Physical - Primary Care Physician PCP: Vonda Negron - Admission Chief Complaint: BIBA FOUNFD ON FLOOR BY SISTER History of Present Illness: 81 Y/O MALE HISTORY OF LEUKEMIA AND REFUSED CHEMOTHERAPY, IS DNR/DNI, HISTORY OF CABG, LUNG MASS RESECTED, HERE IN ER BECAUSE HE WAS FOUND ON THE FLOOR BY HIS SISTER AT HOME. History Source: Family Member, Medical Record Limitations to Obtaining History: No Limitations - Past Medical History Cardiovascular: Yes: CAD, HTN, Hyperlipdemia Pulmonary: Yes: Cancer Heme/Onc: Yes: Cancer Rheumatology: Yes: Gout - Past Surgical History Past Surgical History: Yes: CABG - Smoking History Smoking history: Former smoker Have you smoked in the past 12 months: No If you are a former smoker, when did you quit?: 12 YRS - Alcohol/Substance Use Hx Alcohol Use: No - Social History History of Recent Travel: No Home Medications - Allergies Allergies/Adverse Reactions: Allergies Allergy/AdvReac Type Severity Reaction Status Date / Time No Known Allergies Allergy Verified 05/17/17 19:20 - Home Medications Home Medications: Ambulatory Orders Allopurinol [Zyloprim -] 100 mg PO DAILY 12/11/16 Aspirin [ASA -] 81 mg PO DAILY 12/11/16 Alprazolam [Xanax] 0.5 mg PO BID PRN #0 tablet MDD 2 02/12/17 Levofloxacin [Levaquin -] 250 mg PO DAILY 05/17/17 Ranitidine [Zantac -] 150 mg PO BID 05/17/17 Tramadol HCl [Ultram] 50 mg PO QID PRN 05/17/17 Voriconazole 200 mg PO BID 05/17/17 Review of Systems - Review of Systems Constitutional: reports: Weakness Eyes: reports: No Symptoms HENT: reports: No Symptoms Neck: reports: No Symptoms Cardiovascular: reports: No Symptoms Respiratory: reports: No Symptoms Gastrointestinal: reports: No Symptoms Genitourinary: reports: No Symptoms Musculoskeletal: reports: Muscle Weakness Integumentary: reports: No Symptoms Neurological: reports: Weakness, Other Endocrine: reports: No Symptoms Hematology/Lymphatic: reports: No Symptoms Psychiatric: reports: No Symptoms Physical Examination Vital Signs: Vital Signs Temperature 98.1 F 05/17/17 14:05 Pulse Rate 75 05/17/17 17:57 Respiratory Rate 20 05/17/17 14:05 Blood Pressure 150/65 05/17/17 17:57 O2 Sat by Pulse Oximetry (%) 99 05/17/17 17:57 Constitutional: Yes: Mild Distress Eyes: Yes: WNL HENT: Yes: WNL Neck: Yes: WNL Cardiovascular: Yes: WNL Respiratory: Yes: WNL Gastrointestinal: Yes: WNL Renal/: Yes: WNL Musculoskeletal: Yes: Muscle Weakness Edema: No Peripheral Pulses WNL: Yes Integumentary: Yes: WNL Wound/Incision: Yes: Clean/Dry Neurological: Yes: Pre-Existing Deficit ...Motor Strength: LLE, RLE Psychiatric: Yes: WNL Imaging - Results Chest X-ray: Report Reviewed Cat Scan: Report Reviewed Problem List - Problems (1) NSTEMI (non-ST elevated myocardial infarction) Code(s): I21.4 - NON-ST ELEVATION (NSTEMI) MYOCARDIAL INFARCTION (2) Syncope Code(s): R55 - SYNCOPE AND COLLAPSE Qualifiers: Syncope type: unspecified Qualified Code(s): R55 - Syncope and collapse ; R55 - Syncope and collapse (3) AML (acute myeloblastic leukemia) Code(s): C92.00 - ACUTE MYELOBLASTIC LEUKEMIA, NOT HAVING ACHIEVED REMISSION Qualifiers: Leukemia Active/Remission status: without remission Qualified Code(s ): C92.00 - Acute myeloblastic leukemia, not having achieved remission; C92.00 - Acute myeloblastic leukemia, not having achieved remission; C92.00 - Acute myeloblastic leukemia, not having achieved remission (4) Anemia Code(s): D64.9 - ANEMIA, UNSPECIFIED Qualifiers: Anemia type: unspecified type Qualified Code(s): D64.9 - Anemia, unspecified; D64.9 - Anemia, unspecified (5) Chronic diastolic (congestive) heart failure Code(s): I50.32 - CHRONIC DIASTOLIC (CONGESTIVE) HEART FAILURE (6) Gout attack Code(s): M10.9 - GOUT, UNSPECIFIED Qualifiers: Gout site: foot Gout etiology: unspecified cause Laterality: left Qualified Code(s): M10.9 - Gout, unspecified; M10.9 - Gout, unspecified (7) HLD (hyperlipidemia) Code(s): E78.5 - HYPERLIPIDEMIA, UNSPECIFIED (8) HTN (hypertension) Code(s): I10 - ESSENTIAL (PRIMARY) HYPERTENSION Qualifiers: Hypertension type: essential hypertension Qualified Code(s): I10 - Essential (primary) hypertension; I10 - Essential (primary) hypertension; I10 - Essential (primary) hypertension (9) Hx of CABG Code(s): Z95.1 - PRESENCE OF AORTOCORONARY BYPASS GRAFT (10) Lung cancer Code(s): C34.90 - MALIGNANT NEOPLASM OF UNSP PART OF UNSP BRONCHUS OR LUNG Qualifiers: Laterality: unspecified laterality Qualified Code(s): - (11) Melanoma Code(s): C43.9 - MALIGNANT MELANOMA OF SKIN, UNSPECIFIED Qualifiers: Melanoma location: unspecified site Qualified Code(s): C43.9 - Malignant melanoma of skin, unspecified; C43.9 - Malignant melanoma of skin, unspecified; C43.9 - Malignant melanoma of skin, unspecified Assessment/Plan PATIENT IS DNR/DNI REFUSING CARDIAC CATH OPTIMIZE WITH STATIN/ASA CARDIOLOGY EVAL 02 SUPPORT
[2017-05-17] MEDS: FLUTICASONE PROP 0.05% 16 GM NASAL SPRAY NS SCH (21:41)
[2017-05-17] MEDS ORDERED: ASPIRIN 81 MG CHEWABLE TABLETS PO ONE (22:20)
[2017-05-17] MEDS ORDERED: RANITIDINE HCL 150 MG TABLET (FP) ONE (22:37)
[2017-05-17] MEDS ORDERED: ATORVASTATIN CA 40 MG TABLET (FP) ONE (22:37)
[2017-05-17] MEDS: ATORVASTATIN CA 20 MG TABLET (FP) PO SCH (22:49)
[2017-05-17] MEDS ORDERED: ASPIRIN 325 MG TABLET ONE (22:50)
[2017-05-17] MEDS: RANITIDINE HCL 150 MG TABLET (FP) PO SCH (22:50)
[2017-05-18 08:19] LABS: MCH 32.6 pg (25.7-33.7); MCHC 35.5 g/dl (32.0-35.9); MEAN CELL VOLUME 91.6 fl (80-96); MEAN PLT VOLUME 6.3 fl (7.5-11.1); PLATELET COUNT 228 K/MM3 (134-434); WHITE BLOOD COUNT 5.2 K/mm3 (4.0-10.0)
[2017-05-18 08:48] LABS: ALBUMIN 3.4 g/dl (3.4-5.0); ALK PHOS 118 U/L (45-117); ANION GAP 10 (8-16); BILIRUBIN,TOTAL 0.5 mg/dL (0.2-1.0); CALCIUM 8.3 mg/dL (8.5-10.1); CHOLESTEROL 172 mg/dL (50-200); CO2 22 mmol/L (21-32); GLUCOSE,RANDOM 63 mg/dL (74-106); SGOT/AST 42 U/L (15-37); SGPT/ALT 16 U/L (12-78); TOT PROT 6.5 g/dl (6.4-8.2)
--- NOTE | 2017-05-18 08:58 | CON.CARD ---
Cardiology Consult (text) - Consultation Consultation Note: Cardiology Consult 81M known to me from office with PMH of CAD s/p CABG, AML (refused treatment), melanoma and 2:1 AV block (refused PPM) admitted now with syncopal episode and mildly elevated TnI. He was seen and examined in the ER: denies chest pain, SOB , palps. Does not have clear recollection of events, poor historian. ECG shows NSR w/ 1st degree AV block, LBBB NSST changes- no sig change from prior. Denies fever, chills. Head CT was negative for acute pathology. ALL: none MEDS at home: ASA, Prednisone, Zantac, Allopurinol FH: non-contributory SH: + ETOH, now no longer. Former smoker. Exam: 140/70 O2: 99% R.A. P: 70s, regular Anicteric. CV: S1, 2. regular Chest: clear with no wheezing Abd: soft Ext: no edema LABS: Laboratory Tests 05/17/17 05/17/17 05/17/17 14:55 14:55 14:55 WBC Hgb Plt Count PTT (Actin FS) 29.8 Sodium Potassium Creatinine Lactic Acid 2.1 H* Calcium AST ALT Alkaline Phosphatase Creatine Kinase 977 H Creatine Kinase Index 0.7 CK-MB (CK-2) 7.466 H Troponin I 0.11 H D 05/18/17 05/18/17 08:00 08:00 WBC 5.2 Hgb 11.9 Plt Count 228 PTT (Actin FS) Sodium 136 Potassium 3.7 Creatinine 1.0 D Lactic Acid Calcium 8.3 L AST 42 H D ALT 16 Alkaline Phosphatase 118 H Creatine Kinase Creatine Kinase Index CK-MB (CK-2) Troponin I IMP: CAD s/p CABG Syncopal episode Known conduction system disease, 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 REC: Etiology of syncopal episode unclear: possibly related to known conduction disease, ?NSTEMI, PE seems unlikely -Cycle cardiac enzymes -Telemetry for 24-48 hours -Echo -Check orthostatics Based on his previous wishes, he will likely want conservative measures and to avoid any invasive therapies.
--- NOTE | 2017-05-18 09:09 | EKG ---
Test Reason : Blood Pressure : / mmHG Vent. Rate : 081 BPM Atrial Rate : 081 BPM P-R Int : 000 ms QRS Dur : 152 ms QT Int : 428 ms P-R-T Axes : 000 -49 120 degrees QTc Int : 497 ms ATRIAL FIBRILLATION WITH PREMATURE VENTRICULAR OR ABERRANTLY CONDUCTED COMPLEXES LEFT AXIS DEVIATION LEFT BUNDLE BRANCH BLOCK ABNORMAL ECG WHEN COMPARED WITH ECG OF 07-FEB-2017 13:48, ATRIAL FIBRILLATION HAS REPLACED SINUS RHYTHM Confirmed by KAHLIL PRASAD MD ([id number]) on 05/18/2017 9:09:29 AM Referred By: Confirmed By:KAHLIL PRASAD MD
[2017-05-18 11:00] LABS: TROPONIN I 0.15 ng/ml (0.00-0.05)
[2017-05-18 11:01] LABS: CPK 1404 IU/L (39-308)
[2017-05-18] MEDS: RANITIDINE HCL 150 MG TABLET (FP) PO SCH ×2 (11:22→21:20)
[2017-05-18] MEDS: FLUTICASONE PROP 0.05% 16 GM NASAL SPRAY NS SCH (11:22)
[2017-05-18] MEDS: LORATADINE 10 MG TABLET PO SCH (11:23)
[2017-05-18] MEDS: ALLOPURINOL 100 MG TABLET (FP) PO SCH (11:23)
[2017-05-18] MEDS: predniSONE 10 MG TABLET (UD) PO SCH (11:23)
[2017-05-18] MEDS: ASPIRIN COATED 81 MG TABLET.EC PO SCH (11:23)
[2017-05-18] MEDS ORDERED: METOPROLOL SUCCINATE 50 MG TAB.SR.24H (FP) ONE (11:41)
--- NOTE | 2017-05-18 11:42 | DS ---
Physical Examination Vital Signs: Vital Signs Temperature 98.3 F 05/18/17 10:45 Pulse Rate 70 05/18/17 10:45 Respiratory Rate 18 05/18/17 10:45 Blood Pressure 161/72 05/18/17 10:45 O2 Sat by Pulse Oximetry (%) 97 05/18/17 10:45 Findings/Remarks: REFUSING CARDIAC CATH/ DISCUSSED WITH ROCIO HIS SISTER, PATIENT DNR/DNI, WANTS TO GO HOME, F/U IN 1 WEEK WITH CARDIOLOGY IF HE CHANGES HIS MIND CAN HAVE CARDIAC CATH DONE OUTPATIENT. Constitutional: Yes: Mild Distress Eyes: Yes: WNL HENT: Yes: WNL Neck: Yes: WNL Cardiovascular: Yes: WNL Respiratory: Yes: WNL Gastrointestinal: Yes: WNL Renal/: Yes: WNL Musculoskeletal: Yes: WNL Extremities: Yes: WNL Edema: No Peripheral Pulses WNL: Yes Integumentary: Yes: WNL Wound/Incision: Yes: Clean/Dry Neurological: Yes: WNL ...Motor Strength: WNL Psychiatric: Yes: WNL Labs: CBC, BMP 05/18/17 08:00 05/18/17 08:00 Discharge Summary Reason For Visit: NSTEMI,MYOCARDIAL INFARCTION Current Active Problems Hypokalemia (Acute) NSTEMI (non-ST elevated myocardial infarction) (Acute) Syncope (Acute) Procedures: Principal: CT SCAN Hospital Course: ADMITTED FOR NSTEMI, REFUSING CARDIAC WORKUP, WILL DC HOME AND OPTIMIZE WITH TOPROL XL, STATIN. ASA, WORKUP OUTPATIENT. Condition: Guarded - Instructions Diet, Activity, Other Instructions: SEE DR MONTEMAYOR CARDIOLOGY EVAL IF PATIENT DECIDES TO HAVE CARDIAC CATH NEXT WEEK HE CAN SCHEDULE OUTPATIENT. RETURN TO ED IF CHEST PAIN WORSENS/DIZZINESS ETC. SEE DR NEGRON IN 2 WEEKS LOW FAT LOW SALT DIET Referrals: Vonda Negron MD [Primary Care Provider] - Disposition: VNS/HOME HEALTH CARE - Home Medications Comprehensive Discharge Medication List: Ambulatory Orders Allopurinol [Zyloprim -] 100 mg PO DAILY 12/11/16 Aspirin [ASA -] 81 mg PO DAILY 12/11/16 Alprazolam [Xanax] 0.5 mg PO BID PRN #0 tablet MDD 2 02/12/17 Levofloxacin [Levaquin -] 250 mg PO DAILY 05/17/17 Ranitidine [Zantac -] 150 mg PO BID 05/17/17 Tramadol HCl [Ultram] 50 mg PO QID PRN 05/17/17 Voriconazole 200 mg PO BID 05/17/17
[2017-05-18] MEDS: METOPROLOL SUCCINATE 25 MG TAB.SR.24H (FP) PO SCH (11:45)
--- NOTE | 2017-05-18 14:40 | PN ---
Progress Note (short form) - Note Progress Note: patient became confused will cancel discharge and follow up over weekend on [facility] Problem List - Problems (1) NSTEMI (non-ST elevated myocardial infarction) Code(s): I21.4 - NON-ST ELEVATION (NSTEMI) MYOCARDIAL INFARCTION (2) Syncope Code(s): R55 - SYNCOPE AND COLLAPSE Qualifiers: Syncope type: unspecified Qualified Code(s): R55 - Syncope and collapse ; R55 - Syncope and collapse (3) AML (acute myeloblastic leukemia) Code(s): C92.00 - ACUTE MYELOBLASTIC LEUKEMIA, NOT HAVING ACHIEVED REMISSION Qualifiers: Leukemia Active/Remission status: without remission Qualified Code(s ): C92.00 - Acute myeloblastic leukemia, not having achieved remission; C92.00 - Acute myeloblastic leukemia, not having achieved remission; C92.00 - Acute myeloblastic leukemia, not having achieved remission (4) Anemia Code(s): D64.9 - ANEMIA, UNSPECIFIED Qualifiers: Anemia type: unspecified type Qualified Code(s): D64.9 - Anemia, unspecified; D64.9 - Anemia, unspecified (5) Chronic diastolic (congestive) heart failure Code(s): I50.32 - CHRONIC DIASTOLIC (CONGESTIVE) HEART FAILURE (6) Gout attack Code(s): M10.9 - GOUT, UNSPECIFIED Qualifiers: Gout site: foot Gout etiology: unspecified cause Laterality: left Qualified Code(s): M10.9 - Gout, unspecified; M10.9 - Gout, unspecified (7) HLD (hyperlipidemia) Code(s): E78.5 - HYPERLIPIDEMIA, UNSPECIFIED (8) HTN (hypertension) Code(s): I10 - ESSENTIAL (PRIMARY) HYPERTENSION Qualifiers: Hypertension type: essential hypertension Qualified Code(s): I10 - Essential (primary) hypertension; I10 - Essential (primary) hypertension; I10 - Essential (primary) hypertension (9) Hx of CABG Code(s): Z95.1 - PRESENCE OF AORTOCORONARY BYPASS GRAFT (10) Lung cancer Code(s): C34.90 - MALIGNANT NEOPLASM OF UNSP PART OF UNSP BRONCHUS OR LUNG Qualifiers: Laterality: unspecified laterality (11) Melanoma Code(s): C43.9 - MALIGNANT MELANOMA OF SKIN, UNSPECIFIED Qualifiers: Melanoma location: unspecified site Qualified Code(s): C43.9 - Malignant melanoma of skin, unspecified; C43.9 - Malignant melanoma of skin, unspecified; C43.9 - Malignant melanoma of skin, unspecified
[2017-05-18 15:56] VITALS: BMI 28.2
[2017-05-18] MEDS ORDERED: FLU VACCINE QUAD 60 MCG/0.5 ML (MDV 17-18) IM ONE (16:30)
--- NOTE | 2017-05-18 16:30 | CONSULT ---
Consult - text type - Consultation Consultation Note: 81 year old male from home with PMH of gout, leukemia (untreated currently), CAD (s/p triple bypass), and HTN presenting to the ED s/p a syncopal episode at home. He was found at home by EMS on the floor with multiple abrasions and contusions. He states that he may have passed out prior to falling but is unsure , he does remember feeling lightheaded. No recent fevers, chills, nausea, vomiting, diarrhea, headache symptoms, GI symptoms, chest pain, SOB, or dizziness - Past Medical History Cancer: Yes (LUNG S/P NODULE,MELANOMA,LEUKEMIA) Cardiac Disorders: Yes (BYPASS TRIPLE) HTN: Yes - Surgical History Cardiac Surgery: Yes (bypass) - Suicide/Smoking/Psychosocial Hx Smoking History: Former smoker - Past Medical History Allergies/Adverse Reactions: Allergies Allergy/AdvReac Type Severity Reaction Status Date / Time No Known Allergies Allergy Verified 05/17/17 19:20 Home Medications: Ambulatory Orders Allopurinol [Zyloprim -] 100 mg PO DAILY 12/11/16 Aspirin [ASA -] 81 mg PO DAILY 12/11/16 Alprazolam [Xanax] 0.5 mg PO BID PRN #0 tablet MDD 2 02/12/17 Levofloxacin [Levaquin -] 250 mg PO DAILY 05/17/17 Ranitidine [Zantac -] 150 mg PO BID 05/17/17 Tramadol HCl [Ultram] 50 mg PO QID PRN 05/17/17 Voriconazole 200 mg PO BID 05/17/17 *Physical Exam - Vital Signs Last Vital Signs Temp Pulse Resp BP Pulse Ox 98.1 F 75 20 150/65 99 05/17/17 14:05 05/17/17 17:57 05/17/17 14:05 05/17/17 17:57 05/17/17 17:57 Cor: RSR, No murmurs, No gallops Lungs: Clear to P&A Abd: Soft, Normal bowel sounds, No organomegaly Ext:No significant edema Skin: No rashes, Integument intact Abnormal Lab Results 05/17/17 05/18/17 05/18/17 15:14 08:00 08:00 RBC 3.66 L Hct 33.5 L RDW 16.0 H MPV 6.3 L Random Glucose 63 L D Calcium 8.3 L AST 42 H D Alkaline Phosphatase 118 H Creatine Kinase 1404 H CK-MB (CK-2) 6.544 H Troponin I 0.15 H D Total LDL Cholesterol 107 H D HDL Cholesterol 34 L D Urine Protein 1+ H Urine Ketones 1+ H Urine Blood 2+ H - Medical Decision Making 81 Y/O M with Leukemia and presenting s/p syncopal episode and fall. AML stable blood counts U/A s/o UTI--check cultures consult neuro regarding delirium
[2017-05-18] MEDS ORDERED: METOPROLOL TARTRATE 25 MG TABLET (FP) PO ONE (16:50)
[2017-05-18] MEDS ORDERED: METOPROLOL SUCCINATE 25 MG TAB.SR.24H (FP) PO ONE (17:15)
[2017-05-18] MEDS ORDERED: LORazepam 2 MG/ML SDV VIAL IM ONE ×2 (18:40→23:30)
--- NOTE | 2017-05-18 18:40 | CONSULT ---
Consult - text type - Consultation Consultation Note: Neurology History of Present Illness 81 year old male BIBA from home with PMH of gout, leukemia (untreated currently ), CAD (s/p triple bypass), and HTN presenting to the ED s/p a syncopal episode at home. He was found at home by EMS on the floor with multiple abrasions and contusions. He states that he may have passed out prior to falling but is unsure, he does remember feeling lightheaded. He was admitted for further evaluation. CT head completed and did not show acute changes. During my interaction, was in hallway, irritable, would not cooperate with nurse. Was not clear on location. Was not wanting to participate with staff when asked to stay seated and avoid falls. Would not go to chair or go to bed when requested. Past History - Past Medical History Cancer: Yes (LUNG S/P NODULE,MELANOMA,LEUKEMIA) Cardiac Disorders: Yes (BYPASS TRIPLE) HTN: Yes - Surgical History Cardiac Surgery: Yes (bypass) - Suicide/Smoking/Psychosocial Hx Smoking History: Former smoker Have you smoked in the past 12 months: No If you are a former smoker, when did you quit?: 12 YRS Hx Alcohol Use: No Drug/Substance Use Hx: No Substance Use Type: None - Past Medical History Allergies/Adverse Reactions: Allergies Allergy/AdvReac Type Severity Reaction Status Date / Time No Known Allergies Allergy Verified 05/17/17 19:20 Home Medications: Ambulatory Orders Allopurinol [Zyloprim -] 100 mg PO DAILY 12/11/16 Aspirin [ASA -] 81 mg PO DAILY 12/11/16 Alprazolam [Xanax] 0.5 mg PO BID PRN #0 tablet MDD 2 02/12/17 Levofloxacin [Levaquin -] 250 mg PO DAILY 05/17/17 Ranitidine [Zantac -] 150 mg PO BID 05/17/17 Tramadol HCl [Ultram] 50 mg PO QID PRN 05/17/17 Voriconazole 200 mg PO BID 05/17/17 Review of Systems - Review of Systems Constitutional: No: Chills, Diaphoresis, Fever HEENTM: No: Blurred Vision Respiratory: No: Cough, Shortness of Breath Cardiac (ROS): No: Chest Pain ABD/GI: No: Nausea, Vomiting : No: Burning, Dysuria Musculoskeletal: Yes: Back Pain Integumentary: Yes: Bruising, Lesions *Physical Exam Vital Signs Period Temp Pulse Resp BP Sys/Alvares Pulse Ox Last 24 Hr 98.3 F-98.4 F 70-79 18-18 141-182/71-82 97-99 - Physical Exam General Appearance: Yes: Nourished, Appropriately Dressed. No: Apparent Distress HEENT: positive: EOMI, RUBY, Normal ENT Inspection, Normal Voice Neck: positive: Tender (tender cervical spine), Trachea midline, Normal Thyroid , Supple. negative: Rigid Respiratory/Chest: positive: Lungs Clear, Normal Breath Sounds. negative: Chest Tender, Respiratory Distress, Accessory Muscle Use Cardiovascular: positive: Regular Rhythm, Regular Rate. negative: Murmur Gastrointestinal/Abdominal: positive: Normal Bowel Sounds, Flat, Soft. negative : Tender Musculoskeletal: positive: Vertebral Tenderness (thoracic , lumbar, and sacral spine). negative: Normal Inspection Extremity: positive: Normal Range of Motion. negative: Normal Inspection ( abrasion on elbow) Integumentary: positive: Dry, Warm. negative: Normal Color (abrasion over elbow and forehead) Neurologic: A wake, alert, not cn deficits, no dysathria, strenght grossly intact, sensory intact, ambulates but antalgic in gait CBCD WBC 5.2 K/mm3 (4.0-10.0) 05/18/17 08:00 RBC 3.66 M/mm3 (4.00-5.60) L 05/18/17 08:00 Hgb 11.9 GM/dL (11.7-16.9) 05/18/17 08:00 Hct 33.5 % (35.4-49) L 05/18/17 08:00 MCV 91.6 fl (80-96) 05/18/17 08:00 MCHC 35.5 g/dl (32.0-35.9) 05/18/17 08:00 RDW 16.0 % (11.9-15.9) H 05/18/17 08:00 Plt Count 228 K/MM3 (134-434) 05/18/17 08:00 MPV 6.3 fl (7.5-11.1) L 05/18/17 08:00 CMP Sodium 136 mmol/L (136-145) 05/18/17 08:00 Potassium 3.7 mmol/L (3.5-5.1) 05/18/17 08:00 Chloride 104 mmol/L (98-107) 05/18/17 08:00 Carbon Dioxide 22 mmol/L (21-32) 05/18/17 08:00 Anion Gap 10 (8-16) 05/18/17 08:00 BUN 13 mg/dL (7-18) D 05/18/17 08:00 Creatinine 1.0 mg/dL (0.7-1.3) D 05/18/17 08:00 Creat Clearance w eGFR > 60 (>60) 05/18/17 08:00 Calcium 8.3 mg/dL (8.5-10.1) L 05/18/17 08:00 Total Bilirubin 0.5 mg/dL (0.2-1.0) 05/18/17 08:00 AST 42 U/L (15-37) H D 05/18/17 08:00 ALT 16 U/L (12-78) 05/18/17 08:00 Alkaline Phosphatase 118 U/L (45-117) H 05/18/17 08:00 Total Protein 6.5 g/dl (6.4-8.2) 05/18/17 08:00 Albumin 3.4 g/dl (3.4-5.0) 05/18/17 08:00 Ct head reviewed Medical Decision Making 81 year old male BIBA from home with PMH of gout, leukemia (untreated currently) , CAD (s/p triple bypass), and HTN presenting to the ED s/p a syncopal episode at home. He was found at home by EMS on the floor with multiple abrasions and contusions. CT head completed and did not show acute changes. Not wanting to participate with staff when asked to stay seated and avoid falls. Would not go to chair or go to bed when requested. Will order MRI brain One time Ativan ordered Will need psych consult for further mood stabilization No focal deficits, appears to be generalized aggitation Monitor labs, continue IV/PO hydration, check for infection Monitor blood pressure, continue anti-HTN meds, maintain < 140/90 Fall precautions
[2017-05-18] MEDS ORDERED: HALOPERIDOL LACTATE 5 MG/ML IM ONE (19:00)
[2017-05-18 19:41] LABS: TROPONIN I 0.11 ng/ml (0.00-0.05)
[2017-05-18] MEDS: ATORVASTATIN CA 20 MG TABLET (FP) PO SCH (21:20)
[2017-05-19 07:25] LABS: MCH 32.5 pg (25.7-33.7); MCHC 35.5 g/dl (32.0-35.9); MEAN CELL VOLUME 91.4 fl (80-96); PLATELET COUNT 216 K/MM3 (134-434); RDW 16.1 % (11.9-15.9); WHITE BLOOD COUNT 4.5 K/mm3 (4.0-10.0)
[2017-05-19 08:07] LABS: ALBUMIN 3.3 g/dl (3.4-5.0); ANION GAP 8 (8-16); CALCIUM 8.5 mg/dL (8.5-10.1); CO2 25 mmol/L (21-32); CREATININE 1.2 mg/dL (0.7-1.3); GLUCOSE,RANDOM 77 mg/dL (74-106); SGOT/AST 51 U/L (15-37); SGPT/ALT 21 U/L (12-78)
[2017-05-19 08:09] LABS: ALK PHOS 109 U/L (45-117); BILIRUBIN,TOTAL 0.4 mg/dL (0.2-1.0); TOT PROT 6.4 g/dl (6.4-8.2)
--- NOTE | 2017-05-19 09:24 | PN ---
Progress Note, Physician History of Present Illness: 81M known to me from office with PMH of CAD s/p CABG, AML (refused treatment), melanoma and 2:1 AV block (refused PPM) admitted now with syncopal episode and mildly elevated TnI. He was seen and examined in the ER: denies chest pain, SOB , palps. Does not have clear recollection of events, poor historian. ECG shows NSR w/ 1st degree AV block, LBBB NSST changes- no sig change from prior. - Current Medication List Current Medications: Active Medications Acetaminophen (Tylenol -) 650 mg PO Q6H PRN PRN Reason: FEVER OR PAIN Allopurinol (Zyloprim -) 100 mg PO DAILY [facility] Last Admin: 05/18/17 11:23 Dose: 100 mg Alprazolam (Xanax -) 0.5 mg PO TID PRN PRN Reason: ANXIETY Aspirin (Ecotrin -) 81 mg PO DAILY [facility] Last Admin: 05/18/17 11:23 Dose: 81 mg Atorvastatin Calcium (Lipitor -) 20 mg PO HS [facility] Last Admin: 05/18/17 21:20 Dose: Not Given Fluticasone Propionate (Flonase -) 2 spray NS DAILY [facility] Last Admin: 05/18/17 11:22 Dose: Not Given Loratadine (Claritin -) 10 mg PO DAILY [facility] Last Admin: 05/18/17 11:23 Dose: 10 mg Metoprolol Succinate (Toprol Xl -) 25 mg PO DAILY [facility] Last Admin: 05/18/17 11:45 Dose: 25 mg Prednisone (Deltasone -) 10 mg PO DAILY [facility] Last Admin: 05/18/17 11:23 Dose: 10 mg Ranitidine HCl (Zantac -) 150 mg PO BID [facility] Last Admin: 05/18/17 21:20 Dose: Not Given Sodium Chloride ([place] Nasal [place] -) 2 spray NS BID PRN PRN Reason: NASAL CONGESTION - Objective Vital Signs: Vital Signs Temperature 97.9 F 05/19/17 06:41 Pulse Rate 82 05/19/17 06:41 Respiratory Rate 18 05/19/17 06:41 Blood Pressure 145/78 05/19/17 06:41 O2 Sat by Pulse Oximetry (%) 97 05/18/17 20:52 Eyes: Yes: WNL, Conjunctiva Clear, EOM Intact HENT: Yes: WNL, Atraumatic, Normocephalic Neck: Yes: WNL, Supple, Trachea Midline Cardiovascular: Yes: WNL, Regular Rate and Rhythm Respiratory: Yes: WNL, Regular, CTA Bilaterally Gastrointestinal: Yes: WNL, Normal Bowel Sounds Genitourinary: Yes: WNL Musculoskeletal: Yes: WNL Extremities: Yes: WNL Edema: No Integumentary: Yes: WNL Neurological: Yes: WNL, Alert, Oriented ...Motor Strength: WNL Psychiatric: Yes: WNL Labs: CBC, BMP 05/19/17 06:00 05/19/17 06:00 Assessment/Plan CAD s/p CABG Syncopal episode Known conduction system disease, 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 REC: Etiology of syncopal episode unclear: possibly related to known conduction disease, ?NSTEMI, PE seems unlikely -Cycle cardiac enzymes -Telemetry for 24-48 hours -Echo -Check orthostatics Based on his previous wishes, he will likely want conservative measures and to avoid any invasive therapies.
[2017-05-19] MEDS ORDERED: PT OWN MED DRAWER 7, Y5N ONE ×2 (09:26→11:26)
[2017-05-19] MEDS: ALLOPURINOL 100 MG TABLET (FP) PO SCH (09:28)
[2017-05-19] MEDS: LORATADINE 10 MG TABLET PO SCH (09:28)
[2017-05-19] MEDS: METOPROLOL SUCCINATE 25 MG TAB.SR.24H (FP) PO SCH (09:28)
[2017-05-19] MEDS: predniSONE 10 MG TABLET (UD) PO SCH (09:28)
[2017-05-19] MEDS: ASPIRIN COATED 81 MG TABLET.EC PO SCH (09:28)
[2017-05-19] MEDS: RANITIDINE HCL 150 MG TABLET (FP) PO SCH ×2 (09:28→21:10)
--- NOTE | 2017-05-19 10:16 | PN ---
Progress Note, Physician Chief Complaint: ASLEEP EVENTS REVIEWED HANS SANCHEZ APPLIED FOR PATIENT SAFETY - Current Medication List Current Medications: Active Medications Acetaminophen (Tylenol -) 650 mg PO Q6H PRN PRN Reason: FEVER OR PAIN Allopurinol (Zyloprim -) 100 mg PO DAILY [facility] Last Admin: 05/19/17 09:28 Dose: 100 mg Alprazolam (Xanax -) 0.5 mg PO TID PRN PRN Reason: ANXIETY Aspirin (Ecotrin -) 81 mg PO DAILY [facility] Last Admin: 05/19/17 09:28 Dose: 81 mg Atorvastatin Calcium (Lipitor -) 20 mg PO HS [facility] Last Admin: 05/18/17 21:20 Dose: Not Given Fluticasone Propionate (Flonase -) 2 spray NS DAILY [facility] Last Admin: 05/18/17 11:22 Dose: Not Given Loratadine (Claritin -) 10 mg PO DAILY [facility] Last Admin: 05/19/17 09:28 Dose: 10 mg Metoprolol Succinate (Toprol Xl -) 25 mg PO DAILY [facility] Last Admin: 05/19/17 09:28 Dose: 25 mg Prednisone (Deltasone -) 10 mg PO DAILY [facility] Last Admin: 05/19/17 09:28 Dose: 10 mg Ranitidine HCl (Zantac -) 150 mg PO BID [facility] Last Admin: 05/19/17 09:28 Dose: 150 mg Sodium Chloride ([place] Nasal [place] -) 2 spray NS BID PRN PRN Reason: NASAL CONGESTION - Objective Vital Signs: Vital Signs Temperature 97.9 F 05/19/17 06:41 Pulse Rate 82 05/19/17 06:41 Respiratory Rate 18 05/19/17 06:41 Blood Pressure 145/78 05/19/17 06:41 O2 Sat by Pulse Oximetry (%) 97 05/18/17 20:52 Constitutional: Yes: Mild Distress Eyes: Yes: WNL HENT: Yes: WNL Neck: Yes: WNL Cardiovascular: Yes: WNL Respiratory: Yes: WNL Gastrointestinal: Yes: WNL Genitourinary: Yes: Incontinence Musculoskeletal: Yes: Muscle Weakness Extremities: Yes: WNL Edema: No Integumentary: Yes: WNL Wound/Incision: Yes: Clean/Dry Neurological: Yes: Confusion, Unsteady Gait ...Motor Strength: LLE, RLE Psychiatric: Yes: Agitated Labs: CBC, BMP 05/19/17 06:00 05/19/17 06:00 Problem List - Problems (1) NSTEMI (non-ST elevated myocardial infarction) Code(s): I21.4 - NON-ST ELEVATION (NSTEMI) MYOCARDIAL INFARCTION (2) Syncope Code(s): R55 - SYNCOPE AND COLLAPSE Qualifiers: Syncope type: unspecified Qualified Code(s): R55 - Syncope and collapse ; R55 - Syncope and collapse (3) AML (acute myeloblastic leukemia) Code(s): C92.00 - ACUTE MYELOBLASTIC LEUKEMIA, NOT HAVING ACHIEVED REMISSION Qualifiers: Leukemia Active/Remission status: without remission Qualified Code(s ): C92.00 - Acute myeloblastic leukemia, not having achieved remission; C92.00 - Acute myeloblastic leukemia, not having achieved remission; C92.00 - Acute myeloblastic leukemia, not having achieved remission (4) Anemia Code(s): D64.9 - ANEMIA, UNSPECIFIED Qualifiers: Anemia type: unspecified type Qualified Code(s): D64.9 - Anemia, unspecified; D64.9 - Anemia, unspecified (5) Chronic diastolic (congestive) heart failure Code(s): I50.32 - CHRONIC DIASTOLIC (CONGESTIVE) HEART FAILURE (6) Gout attack Code(s): M10.9 - GOUT, UNSPECIFIED Qualifiers: Gout site: foot Gout etiology: unspecified cause Laterality: left Qualified Code(s): M10.9 - Gout, unspecified; M10.9 - Gout, unspecified (7) HLD (hyperlipidemia) Code(s): E78.5 - HYPERLIPIDEMIA, UNSPECIFIED (8) HTN (hypertension) Code(s): I10 - ESSENTIAL (PRIMARY) HYPERTENSION Qualifiers: Hypertension type: essential hypertension Qualified Code(s): I10 - Essential (primary) hypertension; I10 - Essential (primary) hypertension; I10 - Essential (primary) hypertension (9) Hx of CABG Code(s): Z95.1 - PRESENCE OF AORTOCORONARY BYPASS GRAFT (10) Lung cancer Code(s): C34.90 - MALIGNANT NEOPLASM OF UNSP PART OF UNSP BRONCHUS OR LUNG Qualifiers: Laterality: unspecified laterality (11) Melanoma Code(s): C43.9 - MALIGNANT MELANOMA OF SKIN, UNSPECIFIED Qualifiers: Melanoma location: unspecified site Qualified Code(s): C43.9 - Malignant melanoma of skin, unspecified; C43.9 - Malignant melanoma of skin, unspecified; C43.9 - Malignant melanoma of skin, unspecified (12) Toxic metabolic encephalopathy Code(s): G92 - TOXIC ENCEPHALOPATHY Assessment/Plan NEUROLOGY EVAL PATIENT ID DNR/DNI REFUSED CARDIAC CATH FOR ACUTE CORONARY SYNDROME ASPIRATION PRECAUTIONS HANS RESTRAINT
[2017-05-19] MEDS: FLUTICASONE PROP 0.05% 16 GM NASAL SPRAY NS SCH (11:13)
--- NOTE | 2017-05-19 12:45 | PN ---
Progress Note (short form) - Note Progress Note: covering for Dr Blount 81 year old male SHANTAA from home with PMH of gout, leukemia (untreated currently) , CAD (s/p triple bypass), and HTN presenting to the ED s/p a syncopal episode at home. He was found at home by EMS on the floor with multiple abrasions and contusions. He states that he may have passed out prior to falling but is unsure , he does remember feeling lightheaded. FU : admitted for syncopal episode and mildly elevated TnI. states +drinking HX , though limited x 3 months lives with sister, by bedside, appears closer to baseline now UA (-) MRI BRAIN -P Past History - Past Medical History Cancer: Yes (LUNG S/P NODULE,MELANOMA,LEUKEMIA) Cardiac Disorders: Yes (BYPASS TRIPLE) HTN: Yes - Surgical History Cardiac Surgery: Yes (bypass) - Suicide/Smoking/Psychosocial Hx Smoking History: Former smoker Have you smoked in the past 12 months: No If you are a former smoker, when did you quit?: 12 YRS Hx Alcohol Use: No Drug/Substance Use Hx: No Substance Use Type: None - Past Medical History Allergies/Adverse Reactions: Allergies Allergy/AdvReac Type Severity Reaction Status Date / Time No Known Allergies Allergy Verified 05/17/17 19:20 Home Medications: Ambulatory Orders Allopurinol [Zyloprim -] 100 mg PO DAILY 12/11/16 Aspirin [ASA -] 81 mg PO DAILY 12/11/16 Alprazolam [Xanax] 0.5 mg PO BID PRN #0 tablet MDD 2 02/12/17 Levofloxacin [Levaquin -] 250 mg PO DAILY 05/17/17 Ranitidine [Zantac -] 150 mg PO BID 05/17/17 Tramadol HCl [Ultram] 50 mg PO QID PRN 05/17/17 Voriconazole 200 mg PO BID 05/17/17 Review of Systems - Review of Systems Constitutional: No: Chills, Diaphoresis, Fever HEENTM: No: Blurred Vision Respiratory: No: Cough, Shortness of Breath Cardiac (ROS): No: Chest Pain ABD/GI: No: Nausea, Vomiting : No: Burning, Dysuria Musculoskeletal: Yes: Back Pain Integumentary: Yes: Bruising, Lesions *Physical Exam awake and orienetd to place, time, yr; EOMi, no facial, no focal weakness, no sensory level Vital Signs Period Temp Pulse Resp BP Sys/Alvares Pulse Ox Last 24 Hr 98.3 F-98.4 F 70-79 18-18 141-182/71-82 97-99 - Physical Exam General Appearance: Yes: Nourished, Appropriately Dressed. No: Apparent Distress HEENT: positive: EOMI, RUBY, Normal ENT Inspection, Normal Voice Neck: positive: Tender (tender cervical spine), Trachea midline, Normal Thyroid , Supple. negative: Rigid Respiratory/Chest: positive: Lungs Clear, Normal Breath Sounds. negative: Chest Tender, Respiratory Distress, Accessory Muscle Use Cardiovascular: positive: Regular Rhythm, Regular Rate. negative: Murmur Gastrointestinal/Abdominal: positive: Normal Bowel Sounds, Flat, Soft. negative : Tender Musculoskeletal: positive: Vertebral Tenderness (thoracic , lumbar, and sacral spine). negative: Normal Inspection Extremity: positive: Normal Range of Motion. negative: Normal Inspection ( abrasion on elbow) Integumentary: positive: Dry, Warm. negative: Normal Color (abrasion over elbow and forehead) Neurologic: A wake, alert, not cn deficits, no dysathria, strenght grossly intact, sensory intact, ambulates but antalgic in gait CBCD WBC 5.2 K/mm3 (4.0-10.0) 05/18/17 08:00 RBC 3.66 M/mm3 (4.00-5.60) L 05/18/17 08:00 Hgb 11.9 GM/dL (11.7-16.9) 05/18/17 08:00 Hct 33.5 % (35.4-49) L 05/18/17 08:00 MCV 91.6 fl (80-96) 05/18/17 08:00 MCHC 35.5 g/dl (32.0-35.9) 05/18/17 08:00 RDW 16.0 % (11.9-15.9) H 05/18/17 08:00 Plt Count 228 K/MM3 (134-434) 05/18/17 08:00 MPV 6.3 fl (7.5-11.1) L 05/18/17 08:00 CMP Sodium 136 mmol/L (136-145) 05/18/17 08:00 Potassium 3.7 mmol/L (3.5-5.1) 05/18/17 08:00 Chloride 104 mmol/L (98-107) 05/18/17 08:00 Carbon Dioxide 22 mmol/L (21-32) 05/18/17 08:00 Anion Gap 10 (8-16) 05/18/17 08:00 BUN 13 mg/dL (7-18) D 05/18/17 08:00 Creatinine 1.0 mg/dL (0.7-1.3) D 05/18/17 08:00 Creat Clearance w eGFR > 60 (>60) 05/18/17 08:00 Calcium 8.3 mg/dL (8.5-10.1) L 05/18/17 08:00 Total Bilirubin 0.5 mg/dL (0.2-1.0) 05/18/17 08:00 AST 42 U/L (15-37) H D 05/18/17 08:00 ALT 16 U/L (12-78) 05/18/17 08:00 Alkaline Phosphatase 118 U/L (45-117) H 05/18/17 08:00 Total Protein 6.5 g/dl (6.4-8.2) 05/18/17 08:00 Albumin 3.4 g/dl (3.4-5.0) 05/18/17 08:00 Ct head reviewed Medical Decision Making 81 year old male BIBA from home with PMH of gout, leukemia (untreated currently) , CAD (s/p triple bypass), and HTN presenting to the ED s/p a syncopal episode , mild inc [place] CT head (-) acute , UA (-) doubt neurologic though appears have improving encephalopathy-etiology unclear cont ASA, statin PT consult MRI BRAIN P Dr Baptiste
[2017-05-19] MEDS: ATORVASTATIN CA 20 MG TABLET (FP) PO SCH (21:10)
--- NOTE | 2017-05-20 08:59 | PN ---
Progress Note, Physician History of Present Illness: 81M known to me from office with PMH of CAD s/p CABG, AML (refused treatment), melanoma and 2:1 AV block (refused PPM) admitted now with syncopal episode and mildly elevated TnI. He was seen and examined in the ER: denies chest pain, SOB , palps. Does not have clear recollection of events, poor historian. ECG shows NSR w/ 1st degree AV block, LBBB NSST changes- no sig change from prior. - Current Medication List Current Medications: Active Medications Acetaminophen (Tylenol -) 650 mg PO Q6H PRN PRN Reason: FEVER OR PAIN Allopurinol (Zyloprim -) 100 mg PO DAILY [facility] Last Admin: 05/19/17 09:28 Dose: 100 mg Aspirin (Ecotrin -) 81 mg PO DAILY [facility] Last Admin: 05/19/17 09:28 Dose: 81 mg Atorvastatin Calcium (Lipitor -) 20 mg PO HS [facility] Last Admin: 05/19/17 21:10 Dose: 20 mg Fluticasone Propionate (Flonase -) 2 spray NS DAILY [facility] Last Admin: 05/19/17 11:13 Dose: 2 spray Loratadine (Claritin -) 10 mg PO DAILY [facility] Last Admin: 05/19/17 09:28 Dose: 10 mg Metoprolol Succinate (Toprol Xl -) 25 mg PO DAILY [facility] Last Admin: 05/19/17 09:28 Dose: 25 mg Prednisone (Deltasone -) 10 mg PO DAILY [facility] Last Admin: 05/19/17 09:28 Dose: 10 mg Ranitidine HCl (Zantac -) 150 mg PO BID [facility] Last Admin: 05/19/17 21:10 Dose: 150 mg Sodium Chloride ([place] Nasal [place] -) 2 spray NS BID PRN PRN Reason: NASAL CONGESTION - Objective Vital Signs: Vital Signs Temperature 98 F 05/20/17 07:04 Pulse Rate 62 05/20/17 07:04 Respiratory Rate 20 05/20/17 07:04 Blood Pressure 153/70 05/20/17 07:04 O2 Sat by Pulse Oximetry (%) 97 05/18/17 20:52 Eyes: Yes: WNL, Conjunctiva Clear, EOM Intact HENT: Yes: WNL, Atraumatic, Normocephalic Neck: Yes: WNL, Supple, Trachea Midline Cardiovascular: Yes: WNL, Regular Rate and Rhythm Respiratory: Yes: WNL, Regular, CTA Bilaterally Gastrointestinal: Yes: WNL, Normal Bowel Sounds Genitourinary: Yes: WNL Musculoskeletal: Yes: WNL Extremities: Yes: WNL Edema: No Integumentary: Yes: WNL Neurological: Yes: WNL, Alert, Oriented ...Motor Strength: WNL Psychiatric: Yes: WNL Labs: CBC, BMP 05/19/17 06:00 05/19/17 06:00 Assessment/Plan CAD s/p CABG Syncopal episode Known conduction system disease, 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 REC: Etiology of syncopal episode unclear: possibly related to known conduction disease, ?NSTEMI, PE seems unlikely -Cycle cardiac enzymes -Telemetry for 24-48 hours -Echo -Check orthostatics Based on his previous wishes, he will likely want conservative measures and to avoid any invasive therapies.
[2017-05-20] MEDS ORDERED: PT OWN MED DRAWER 7, Y5N ONE (10:10)
--- NOTE | 2017-05-20 10:15 | PN ---
Progress Note, Physician Chief Complaint: awake more alert does not remember being agitated yesterday - Current Medication List Current Medications: Active Medications Acetaminophen (Tylenol -) 650 mg PO Q6H PRN PRN Reason: FEVER OR PAIN Allopurinol (Zyloprim -) 100 mg PO DAILY [facility] Last Admin: 05/19/17 09:28 Dose: 100 mg Aspirin (Ecotrin -) 81 mg PO DAILY [facility] Last Admin: 05/19/17 09:28 Dose: 81 mg Atorvastatin Calcium (Lipitor -) 20 mg PO HS [facility] Last Admin: 05/19/17 21:10 Dose: 20 mg Fluticasone Propionate (Flonase -) 2 spray NS DAILY [facility] Last Admin: 05/19/17 11:13 Dose: 2 spray Loratadine (Claritin -) 10 mg PO DAILY [facility] Last Admin: 05/19/17 09:28 Dose: 10 mg Metoprolol Succinate (Toprol Xl -) 25 mg PO DAILY [facility] Last Admin: 05/19/17 09:28 Dose: 25 mg Prednisone (Deltasone -) 10 mg PO DAILY [facility] Last Admin: 05/19/17 09:28 Dose: 10 mg Ranitidine HCl (Zantac -) 150 mg PO BID [facility] Last Admin: 05/19/17 21:10 Dose: 150 mg Sodium Chloride ([place] Nasal [place] -) 2 spray NS BID PRN PRN Reason: NASAL CONGESTION - Objective Vital Signs: Vital Signs Temperature 98 F 05/20/17 07:04 Pulse Rate 62 05/20/17 07:04 Respiratory Rate 20 05/20/17 07:04 Blood Pressure 153/70 05/20/17 07:04 O2 Sat by Pulse Oximetry (%) 97 05/18/17 20:52 Constitutional: Yes: No Distress Eyes: Yes: WNL HENT: Yes: WNL Neck: Yes: WNL Cardiovascular: Yes: WNL Respiratory: Yes: WNL Gastrointestinal: Yes: WNL Genitourinary: Yes: WNL Musculoskeletal: Yes: Muscle Weakness Extremities: Yes: WNL Edema: No Peripheral Pulses WNL: Yes Integumentary: Yes: WNL Wound/Incision: Yes: Clean/Dry Neurological: Yes: Other ...Motor Strength: WNL Psychiatric: Yes: WNL Labs: CBC, BMP 05/19/17 06:00 05/19/17 06:00 Problem List - Problems (1) NSTEMI (non-ST elevated myocardial infarction) Code(s): I21.4 - NON-ST ELEVATION (NSTEMI) MYOCARDIAL INFARCTION (2) Syncope Code(s): R55 - SYNCOPE AND COLLAPSE Qualifiers: Syncope type: unspecified Qualified Code(s): R55 - Syncope and collapse ; R55 - Syncope and collapse (3) AML (acute myeloblastic leukemia) Code(s): C92.00 - ACUTE MYELOBLASTIC LEUKEMIA, NOT HAVING ACHIEVED REMISSION Qualifiers: Leukemia Active/Remission status: without remission Qualified Code(s ): C92.00 - Acute myeloblastic leukemia, not having achieved remission; C92.00 - Acute myeloblastic leukemia, not having achieved remission; C92.00 - Acute myeloblastic leukemia, not having achieved remission (4) Anemia Code(s): D64.9 - ANEMIA, UNSPECIFIED Qualifiers: Anemia type: unspecified type Qualified Code(s): D64.9 - Anemia, unspecified; D64.9 - Anemia, unspecified (5) Chronic diastolic (congestive) heart failure Code(s): I50.32 - CHRONIC DIASTOLIC (CONGESTIVE) HEART FAILURE (6) Gout attack Code(s): M10.9 - GOUT, UNSPECIFIED Qualifiers: Gout site: foot Gout etiology: unspecified cause Laterality: left Qualified Code(s): M10.9 - Gout, unspecified; M10.9 - Gout, unspecified (7) HLD (hyperlipidemia) Code(s): E78.5 - HYPERLIPIDEMIA, UNSPECIFIED (8) HTN (hypertension) Code(s): I10 - ESSENTIAL (PRIMARY) HYPERTENSION Qualifiers: Hypertension type: essential hypertension Qualified Code(s): I10 - Essential (primary) hypertension; I10 - Essential (primary) hypertension; I10 - Essential (primary) hypertension (9) Hx of CABG Code(s): Z95.1 - PRESENCE OF AORTOCORONARY BYPASS GRAFT (10) Lung cancer Code(s): C34.90 - MALIGNANT NEOPLASM OF UNSP PART OF UNSP BRONCHUS OR LUNG Qualifiers: Laterality: unspecified laterality (11) Melanoma Code(s): C43.9 - MALIGNANT MELANOMA OF SKIN, UNSPECIFIED Qualifiers: Melanoma location: unspecified site Qualified Code(s): C43.9 - Malignant melanoma of skin, unspecified; C43.9 - Malignant melanoma of skin, unspecified; C43.9 - Malignant melanoma of skin, unspecified (12) Toxic metabolic encephalopathy Code(s): G92 - TOXIC ENCEPHALOPATHY Assessment/Plan NEUROLOGY EVAL APPRECIATED MRI ACUTE SINUS/MASTOIDITIS NO ACUTE BRAIN CHANGES PATIENT ID DNR/DNI REFUSED CARDIAC CATH FOR ACUTE CORONARY SYNDROME ASPIRATION PRECAUTIONS HANS RESTRAINT D/C FALL RISK PRECAUTIONS PT EVAL
[2017-05-20] MEDS: predniSONE 10 MG TABLET (UD) PO SCH (10:17)
[2017-05-20] MEDS: METOPROLOL SUCCINATE 25 MG TAB.SR.24H (FP) PO SCH (10:17)
[2017-05-20] MEDS: ASPIRIN COATED 81 MG TABLET.EC PO SCH (10:17)
[2017-05-20] MEDS: LORATADINE 10 MG TABLET PO SCH (10:17)
[2017-05-20] MEDS: FLUTICASONE PROP 0.05% 16 GM NASAL SPRAY NS SCH (10:18)
[2017-05-20] MEDS: ALLOPURINOL 100 MG TABLET (FP) PO SCH (10:18)
[2017-05-20] MEDS: RANITIDINE HCL 150 MG TABLET (FP) PO SCH ×2 (10:18→21:58)
[2017-05-20 11:26] LABS: ANION GAP 10 (8-16); CALCIUM 8.5 mg/dL (8.5-10.1); CO2 24 mmol/L (21-32); GLUCOSE,RANDOM 112 mg/dL (74-106); MAGNESIUM 2.2 mg/dL (1.8-2.4)
[2017-05-20 11:28] LABS: CREATININE 1.4 mg/dL (0.7-1.3)
[2017-05-20] MEDS: ATORVASTATIN CA 20 MG TABLET (FP) PO SCH (21:58)
[2017-05-21 08:18] LABS: MCH 32.9 pg (25.7-33.7); MCHC 35.9 g/dl (32.0-35.9); MEAN CELL VOLUME 91.6 fl (80-96); MEAN PLT VOLUME 6.2 fl (7.5-11.1); PLATELET COUNT 254 K/MM3 (134-434); RDW 15.9 % (11.9-15.9); WHITE BLOOD COUNT 4.9 K/mm3 (4.0-10.0)
[2017-05-21 08:40] LABS: ALBUMIN 3.4 g/dl (3.4-5.0); ALK PHOS 106 U/L (45-117); ANION GAP 9 (8-16); BILIRUBIN,TOTAL 0.5 mg/dL (0.2-1.0); CALCIUM 8.7 mg/dL (8.5-10.1); CO2 25 mmol/L (21-32); CREATININE 1.1 mg/dL (0.7-1.3); GLUCOSE,RANDOM 79 mg/dL (74-106); SGOT/AST 36 U/L (15-37); SGPT/ALT 20 U/L (12-78); TOT PROT 6.3 g/dl (6.4-8.2)
[2017-05-21] MEDS ORDERED: PT OWN MED DRAWER 7, Y5N ONE (09:44)
[2017-05-21] MEDS: ASPIRIN COATED 81 MG TABLET.EC PO SCH (09:45)
[2017-05-21] MEDS: LORATADINE 10 MG TABLET PO SCH (09:45)
[2017-05-21] MEDS: predniSONE 10 MG TABLET (UD) PO SCH (09:45)
[2017-05-21] MEDS: RANITIDINE HCL 150 MG TABLET (FP) PO SCH ×2 (09:45→21:04)
[2017-05-21] MEDS: FLUTICASONE PROP 0.05% 16 GM NASAL SPRAY NS SCH (09:45)
[2017-05-21] MEDS: ALLOPURINOL 100 MG TABLET (FP) PO SCH (09:45)
[2017-05-21] MEDS: METOPROLOL SUCCINATE 25 MG TAB.SR.24H (FP) PO SCH (09:45)
--- NOTE | 2017-05-21 10:03 | PN ---
Progress Note (short form) - Note Progress Note: Neurology History of Present Illness 81 year old male BIBA from home with PMH of gout, leukemia (untreated currently ), CAD (s/p triple bypass), and HTN presenting to the ED s/p a syncopal episode at home. He was found at home by EMS on the floor with multiple abrasions and contusions. He states that he may have passed out prior to falling but is unsure, he does remember feeling lightheaded. He was admitted for further evaluation. CT head completed and did not show acute changes. During my interaction last Sunday, was in hallway, irritable, would not cooperate with nurse. Was not clear on location. Was not wanting to participate with staff when asked to stay seated and avoid falls. Would not go to chair or go to bed when requested. Over weekend, completed MRI brain and did not show acute changes. Today, able to tell me location, date, had trouble with name of president but much more calm and cooperative, pleasant and interactive. Active Medications Acetaminophen (Tylenol -) 650 mg PO Q6H PRN PRN Reason: FEVER OR PAIN Allopurinol (Zyloprim -) 100 mg PO DAILY [facility] Last Admin: 05/21/17 09:45 Dose: 100 mg Aspirin (Ecotrin -) 81 mg PO DAILY [facility] Last Admin: 05/21/17 09:45 Dose: 81 mg Atorvastatin Calcium (Lipitor -) 20 mg PO HS [facility] Last Admin: 05/20/17 21:58 Dose: 20 mg Fluticasone Propionate (Flonase -) 2 spray NS DAILY [facility] Last Admin: 05/21/17 09:45 Dose: 2 spray Loratadine (Claritin -) 10 mg PO DAILY [facility] Last Admin: 05/21/17 09:45 Dose: 10 mg Metoprolol Succinate (Toprol Xl -) 25 mg PO DAILY [facility] Last Admin: 05/21/17 09:45 Dose: 25 mg Prednisone (Deltasone -) 10 mg PO DAILY [facility] Last Admin: 05/21/17 09:45 Dose: 10 mg Ranitidine HCl (Zantac -) 150 mg PO BID [facility] Last Admin: 05/21/17 09:45 Dose: 150 mg Sodium Chloride ([place] Nasal [place] -) 2 spray NS BID PRN PRN Reason: NASAL CONGESTION *Physical Exam Vital Signs Temperature 97.8 F 05/21/17 06:00 Pulse Rate 81 05/21/17 06:00 Respiratory Rate 20 05/21/17 06:00 Blood Pressure 127/71 05/21/17 06:00 O2 Sat by Pulse Oximetry (%) 97 05/20/17 21:00 - Physical Exam General Appearance: Yes: Nourished, Appropriately Dressed. No: Apparent Distress HEENT: positive: EOMI, RUBY, Normal ENT Inspection, Normal Voice Neck: positive: Tender (tender cervical spine), Trachea midline, Normal Thyroid , Supple. negative: Rigid Respiratory/Chest: positive: Lungs Clear, Normal Breath Sounds. negative: Chest Tender, Respiratory Distress, Accessory Muscle Use Cardiovascular: positive: Regular Rhythm, Regular Rate. negative: Murmur Gastrointestinal/Abdominal: positive: Normal Bowel Sounds, Flat, Soft. negative : Tender Musculoskeletal: positive: Vertebral Tenderness (thoracic , lumbar, and sacral spine). negative: Normal Inspection Extremity: positive: Normal Range of Motion. negative: Normal Inspection ( abrasion on elbow) Integumentary: positive: Dry, Warm. negative: Normal Color (abrasion over elbow and forehead) Neurologic: A wake, alert, not cn deficits, no dysathria, strenght grossly intact, sensory intact, ambulates but antalgic in gait CBCD WBC 4.9 K/mm3 (4.0-10.0) 05/21/17 07:45 RBC 3.24 M/mm3 (4.00-5.60) L 05/21/17 07:45 Hgb 10.6 GM/dL (11.7-16.9) L 05/21/17 07:45 Hct 29.6 % (35.4-49) L 05/21/17 07:45 MCV 91.6 fl (80-96) 05/21/17 07:45 MCHC 35.9 g/dl (32.0-35.9) 05/21/17 07:45 RDW 15.9 % (11.9-15.9) 05/21/17 07:45 Plt Count 254 K/MM3 (134-434) 05/21/17 07:45 MPV 6.2 fl (7.5-11.1) L 05/21/17 07:45 CMP Sodium 143 mmol/L (136-145) 05/21/17 07:45 Potassium 3.8 mmol/L (3.5-5.1) 05/21/17 07:45 Chloride 109 mmol/L (98-107) H 05/21/17 07:45 Carbon Dioxide 25 mmol/L (21-32) 05/21/17 07:45 Anion Gap 9 (8-16) 05/21/17 07:45 BUN 23 mg/dL (7-18) H 05/21/17 07:45 Creatinine 1.1 mg/dL (0.7-1.3) D 05/21/17 07:45 Creat Clearance w eGFR > 60 (>60) 05/21/17 07:45 Calcium 8.7 mg/dL (8.5-10.1) 05/21/17 07:45 Total Bilirubin 0.5 mg/dL (0.2-1.0) D 05/21/17 07:45 AST 36 U/L (15-37) D 05/21/17 07:45 ALT 20 U/L (12-78) 05/21/17 07:45 Alkaline Phosphatase 106 U/L (45-117) 05/21/17 07:45 Total Protein 6.3 g/dl (6.4-8.2) L 05/21/17 07:45 Albumin 3.4 g/dl (3.4-5.0) 05/21/17 07:45 Ct head reviewed Medical Decision Making 81 year old male BIBA from home with PMH of gout, leukemia (untreated currently) , CAD (s/p triple bypass), and HTN presenting to the ED s/p a syncopal episode at home. He was found at home by EMS on the floor with multiple abrasions and contusions. CT head completed and did not show acute changes. MRI brain reviewed and no acute changes Much improved No longer aggitated Oriented to person place and date Plan is for discharge, recommend family monitor patient for any changes in mental status or recurrence of confusion Currently at baseline and neurologically stable Monitor blood pressure, continue anti-HTN meds, maintain < 140/90 Fall precautions
--- NOTE | 2017-05-21 11:17 | PN ---
Progress Note, Physician History of Present Illness: seen and examined today in nad. pt oriented, alert, frustrated that he was a little confused over the weekend as he prides himself on being sharp mentally. - Current Medication List Current Medications: Active Medications Acetaminophen (Tylenol -) 650 mg PO Q6H PRN PRN Reason: FEVER OR PAIN Allopurinol (Zyloprim -) 100 mg PO DAILY [facility] [place] Last Admin: 05/21/17 09:45 Dose: 100 mg Aspirin (Ecotrin -) 81 mg PO DAILY [facility] [place] Last Admin: 05/21/17 09:45 Dose: 81 mg Atorvastatin Calcium (Lipitor -) 20 mg PO HS [facility] [place] Last Admin: 05/20/17 21:58 Dose: 20 mg Fluticasone Propionate (Flonase -) 2 spray NS DAILY [facility] [place] Last Admin: 05/21/17 09:45 Dose: 2 spray Loratadine (Claritin -) 10 mg PO DAILY [facility] [place] Last Admin: 05/21/17 09:45 Dose: 10 mg Metoprolol Succinate (Toprol Xl -) 25 mg PO DAILY [facility] [place] Last Admin: 05/21/17 09:45 Dose: 25 mg Prednisone (Deltasone -) 10 mg PO DAILY [facility] [place] Last Admin: 05/21/17 09:45 Dose: 10 mg Ranitidine HCl (Zantac -) 150 mg PO BID [facility] [place] Last Admin: 05/21/17 09:45 Dose: 150 mg Sodium Chloride ([place] Nasal [place] -) 2 spray NS BID PRN PRN Reason: NASAL CONGESTION - Objective Vital Signs: Vital Signs Temperature 97.8 F 05/21/17 06:00 Pulse Rate 81 05/21/17 06:00 Respiratory Rate 20 05/21/17 06:00 Blood Pressure 127/71 05/21/17 06:00 O2 Sat by Pulse Oximetry (%) 97 05/20/17 21:00 Constitutional: Yes: No Distress, Calm Eyes: Yes: Conjunctiva Clear, EOM Intact, PERRL HENT: Yes: Atraumatic, Normocephalic Neck: Yes: Supple, Trachea Midline Cardiovascular: Yes: Regular Rate and Rhythm. No: Bradycardia, Tachycardia Respiratory: Yes: Regular, CTA Bilaterally. No: Rales, Rhonchi, SOB, Wheezes Gastrointestinal: Yes: Normal Bowel Sounds, Soft. No: Distention, Tenderness Edema: No Peripheral Pulses WNL: Yes Peripheral Pulses: Left Doralis Pedis: 2+, Right Dorsalis Pedis: 2+ Neurological: Yes: Alert, Oriented Psychiatric: Yes: Alert, Oriented Labs: CBC, BMP 05/21/17 07:45 05/21/17 07:45 - ....Imaging Chest X-ray: Report Reviewed, Image Reviewed EKG: Report Reviewed, Image Reviewed Other: Report Reviewed, Image Reviewed Assessment/Plan CAD s/p CABG Syncopal episode Known conduction system disease, 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 REC: Troponin slightly elevated but did not significantly trend up Pt has refused any further invasive work up or treatments No significant arrhythmias were seen on telemetry Etiology of syncopal episode unclear: possibly related to known conduction disease, NSTEMI, PE seems unlikely Possible orthostatic hypotension-Orthostatic BP checked on 05/18 not clearly diagnostic, from sitting to standing there was a 30mmHg drop SBP but from lying to standing only 10mmHg Educate pt on safety precautions to avoid injury if syncope recurs Ok from a cardiac standpoint for discharge planning as pt does not want any further work up done.
--- NOTE | 2017-05-21 16:04 | DS ---
Physical Examination Vital Signs: Vital Signs Temperature 98.5 F 05/21/17 14:32 Pulse Rate 64 05/21/17 14:32 Respiratory Rate 20 05/21/17 14:32 Blood Pressure 155/61 05/21/17 14:32 O2 Sat by Pulse Oximetry (%) 97 05/20/17 21:00 Constitutional: Yes: Mild Distress Eyes: Yes: WNL HENT: Yes: WNL Neck: Yes: WNL Cardiovascular: Yes: WNL Respiratory: Yes: WNL Gastrointestinal: Yes: WNL Renal/: Yes: WNL Musculoskeletal: Yes: Muscle Weakness Extremities: Yes: WNL Edema: No Peripheral Pulses WNL: Yes Integumentary: Yes: WNL Wound/Incision: Yes: Clean/Dry Neurological: Yes: Confusion, Pre-Existing Deficit, Unsteady Gait ...Motor Strength: LLE, RLE Psychiatric: Yes: Other Labs: CBC, BMP 05/21/17 07:45 05/21/17 07:45 Discharge Summary Reason For Visit: NSTEMI,MYOCARDIAL INFARCTION Current Active Problems Hypokalemia (Acute) NSTEMI (non-ST elevated myocardial infarction) (Acute) Syncope (Acute) Toxic metabolic encephalopathy (Acute) Procedures: Principal: mri brain Hospital Course: admitted acute coronary syndrome, metabolic toxic enceophalopathy, declined cardiac cath, treat with statins and asa, toprol, cardio f/u Condition: Fair - Instructions Diet, Activity, Other Instructions: SEE DR MONTEMAYOR CARDIOLOGY EVAL IF PATIENT DECIDES TO HAVE CARDIAC CATH NEXT WEEK HE CAN SCHEDULE OUTPATIENT. RETURN TO ED IF CHEST PAIN WORSENS/DIZZINESS ETC. SEE DR NEGRON IN 2 WEEKS LOW FAT LOW SALT DIET Referrals: Vonda Negron MD [Primary Care Provider] - Disposition: VNS/HOME HEALTH CARE - Home Medications Comprehensive Discharge Medication List: Ambulatory Orders Alprazolam [Xanax] 0.5 mg PO BID PRN #0 tablet MDD 2 02/12/17 Ranitidine [Zantac -] 150 mg PO BID 05/17/17 Acetaminophen [Tylenol .Regular Strength -] 650 mg PO Q6H PRN #0 tablet Allopurinol [Zyloprim -] 100 mg PO DAILY tablet 05/18/17 Allopurinol [Zyloprim -] 100 mg PO DAILY #0 tab 05/18/17 Alprazolam [Xanax] 0.5 mg PO TID PRN #0 tablet MDD 2 05/18/17 Aspirin [ASA -] 81 mg PO DAILY #0 tab 05/18/17 Levofloxacin [Levaquin -] 250 mg PO DAILY #0 tab 05/18/17 Ranitidine [Zantac -] 150 mg PO BID #60 tablet 05/18/17 Sodium Chloride Nasal [place] [[place] Nasal [place] -] 2 spray NS BID PRN #0 spray 05/18/17 Tramadol HCl [Ultram] 50 mg PO QID PRN #0 tab MDD 4 05/18/17 Voriconazole 200 mg PO BID #0 tab 05/18/17 Atorvastatin Ca [Lipitor] 20 mg PO HS tablet 05/21/17 Fluticasone Prop 0.05% Nasal [Flonase -] 2 spray NS DAILY spray 05/21/17 Loratadine [Claritin -] 10 mg PO DAILY tablet 05/21/17 Metoprolol Succinate [Toprol XL -] 25 mg PO DAILY #30 tab 05/21/17
--- NOTE | 2017-05-21 16:38 | CONSULT ---
Admitting History and Physical - Past Medical History Cardiovascular: Yes: CAD, HTN, Hyperlipdemia Pulmonary: Yes: Cancer Heme/Onc: Yes: Cancer Rheumatology: Yes: Gout - Past Surgical History Past Surgical History: Yes: CABG - Advance Directives Advance Directives: Yes: Health Care Proxy, DNR - Smoking History Smoking history: Former smoker Have you smoked in the past 12 months: No If you are a former smoker, when did you quit?: 12 YRS - Alcohol/Substance Use Hx Alcohol Use: No - Social History History of Recent Travel: No History - Admission Reason For Visit: NSTEMI,MYOCARDIAL INFARCTION - Hearing Hearing: Normal Speech Evaluation - Communication Primary Language: [place] Communication: Yes: Within Normal Limits Oral Expression Ability: Yes: No Impairment - Speech Production Apraxia: No Able to Make Needs Known: Yes: WNL Intelligibility: Yes: WNL - Speech Characteristics Voice Loudness: Normal Voice Pitch: Yes: Normal Voice Phonatory-based Quality: Yes: Normal Nasal Resonance: Normal Articulation: Yes: Precise Rate of Speech: Intact - Language/Auditory Comprehension Follows: Yes: 2 Stage Simple Commands, Complex Commands Observation: Able to respond to yes/no queries: Yes, Yes/No Confusion: No, Comprehends Conversational Speech: Yes (simple. 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 Jaw Position: Closed at Rest Against Resistance Opening: Normal Against Resistance Closing: Normal Pucker Lips: Normal Lips, Comment: WFL for speech and swallowing purposes. Lingual Movement: Normal Lingual Speed of Movement: Normal Lingual Movement Strgth Against Opposition: Normal Lingual Movement Characteristics: Normal Lingual Comment: WFL for speech and swallowing purposes. Soft Palate Description: Normal Color Hard Palate Description: Normal Color Gag Reflex: Strong Bite Reflex: Present Velopharyngeal Movement: Normal Laryngeal Elevation: WFL Laryngeal Movement: Able to Palpate Needs Assistance: Yes Rate of Intake: WFL Bolus Size: WFL Labial Seal: WFL Chewing: WFL Oral Prep Time: WFL A-P Transit: WFL Timing of Swallow: WFL Coughing/Throat Clear: No Change in Voice: No Other Findings/Remarks: 81 yo male seen at bedside for swallow eval to r/o dysphagia. Pt is verbal, A& Ox2 agitated. Pt admitted to [facility] for syncope. BIBA History of leukemia, CABG , CAD, HTN. Pt presents as agitated secondary to wanting to leaving the hospital. Oral motor examination was unremarkable with all structures WFL for speech and swallowing purposes. Pt given po trials of pureed, soft and chewable solids without assistance revealed good acceptance, adequate bolus formation and transport (may exhibit increased mastication time for some solids), pharyngeal swallow appears timely. No cough or changes in respiration or voicing at this time. Thin liquid trials via cup and straw were unremarkable for dysphagia at this time. Recommendations - Speech Evaluation, Impression/Plan Impression: 81 yo male presents with adequate speech and language skills for his environment. Pt is able to tolerate pureed, soft and regular solids without s/s of dysphagia and / or aspiration at this time. 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 Short Term Goals: tolerate pureed, regular solids and thin liquids without s/s of aspiration - Dysphagia Impressions/Plan Swallowing Skills: Impaired (mild impairment with mastication of some solids.) Dysphagia Impressions: Minimal Impairment Dysphagia Treatment Plan: Small Bites, Safe Rate, Elevate HOB during feed, OOB for meals, Other Dysphagia Evaluation Summary: Pt presents with very mild dysphagia for some solids. Pt is able to tolerate purees, regular soldis and thin liquids without s/s of aspiration at this time. Recommend NA controlled regular solids and thin liquids as tolerated. Encourage thorough chewing. Suggest liquids with every 2-3 bites of solids. Meds can be given whole with water or applesauce. Results given verbally to rn relief charge Angela and to Dr Negron via chart. - Recommendations Diet Consistency: Regular, 1 - 2 Soft Items Medication Administration: Whole with water Liquids: Thin Liquids
[2017-05-21] MEDS: ATORVASTATIN CA 20 MG TABLET (FP) PO SCH (21:04)
[2017-05-22 08:50] LABS: MCH 32.3 pg (25.7-33.7); MCHC 34.4 g/dl (32.0-35.9); MEAN CELL VOLUME 93.8 fl (80-96); MEAN PLT VOLUME 6.1 fl (7.5-11.1); PLATELET COUNT 225 K/MM3 (134-434); RDW 15.9 % (11.9-15.9); WHITE BLOOD COUNT 4.9 K/mm3 (4.0-10.0)
[2017-05-22 09:21] LABS: ANION GAP 11 (8-16); CALCIUM 8.4 mg/dL (8.5-10.1); CO2 22 mmol/L (21-32); CREATININE 1.1 mg/dL (0.7-1.3); GLUCOSE,RANDOM 85 mg/dL (74-106)
[2017-05-22] MEDS ORDERED: PT OWN MED DRAWER 7, Y5N ONE (09:23)
[2017-05-22] MEDS: ALLOPURINOL 100 MG TABLET (FP) PO SCH (09:27)
[2017-05-22] MEDS: RANITIDINE HCL 150 MG TABLET (FP) PO SCH (09:27)
[2017-05-22] MEDS: LORATADINE 10 MG TABLET PO SCH (09:27)
[2017-05-22] MEDS: ASPIRIN COATED 81 MG TABLET.EC PO SCH (09:27)
[2017-05-22] MEDS: predniSONE 10 MG TABLET (UD) PO SCH (09:28)
[2017-05-22] MEDS: FLUTICASONE PROP 0.05% 16 GM NASAL SPRAY NS SCH (09:28)
[2017-05-22] MEDS: METOPROLOL SUCCINATE 25 MG TAB.SR.24H (FP) PO SCH (09:28)
--- NOTE | 2017-05-22 09:38 | PN ---
Progress Note, Physician Chief Complaint: no distress - Current Medication List Current Medications: Active Medications Acetaminophen (Tylenol -) 650 mg PO Q6H PRN PRN Reason: FEVER OR PAIN Allopurinol (Zyloprim -) 100 mg PO DAILY [facility] Last Admin: 05/22/17 09:27 Dose: 100 mg Aspirin (Ecotrin -) 81 mg PO DAILY [facility] Last Admin: 05/22/17 09:27 Dose: 81 mg Atorvastatin Calcium (Lipitor -) 20 mg PO HS [facility] Last Admin: 05/21/17 21:04 Dose: 20 mg Fluticasone Propionate (Flonase -) 2 spray NS DAILY [facility] Last Admin: 05/22/17 09:28 Dose: 2 spray Loratadine (Claritin -) 10 mg PO DAILY [facility] Last Admin: 05/22/17 09:27 Dose: 10 mg Metoprolol Succinate (Toprol Xl -) 25 mg PO DAILY [facility] Last Admin: 05/22/17 09:28 Dose: 25 mg Prednisone (Deltasone -) 10 mg PO DAILY [facility] Last Admin: 05/22/17 09:28 Dose: 10 mg Ranitidine HCl (Zantac -) 150 mg PO BID [facility] Last Admin: 05/22/17 09:27 Dose: 150 mg Sodium Chloride ([place] Nasal [place] -) 2 spray NS BID PRN PRN Reason: NASAL CONGESTION - Objective Vital Signs: Vital Signs Temperature 98.3 F 05/22/17 05:47 Pulse Rate 61 05/22/17 05:47 Respiratory Rate 18 05/22/17 05:47 Blood Pressure 153/61 05/22/17 05:47 O2 Sat by Pulse Oximetry (%) 97 05/21/17 21:00 Constitutional: Yes: No Distress Cardiovascular: Yes: Regular Rate and Rhythm Respiratory: Yes: CTA Bilaterally Gastrointestinal: Yes: Soft Edema: No Neurological: Yes: Alert, Oriented Labs: CBC, BMP 05/22/17 07:45 05/22/17 07:45 Laboratory Tests 05/22/17 05/22/17 07:45 07:45 WBC 4.9 Hgb 11.2 L Plt Count 225 Potassium 4.0 Creatinine 1.1 Assessment/Plan Assessment/Plan CAD s/p CABG Syncopal episode Known conduction system disease, 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 REC: Troponin slightly elevated but did not significantly trend up Pt has refused any further invasive work up or treatments No significant arrhythmias were seen on telemetry Etiology of syncopal episode unclear: possibly related to known conduction disease, NSTEMI, PE seems unlikely Possible orthostatic hypotension-Orthostatic BP checked on 05/18 not clearly diagnostic, from sitting to standing there was a 30mmHg drop SBP but from lying to standing only 10mmHg Educated pt on safety precautions to avoid injury if syncope recurs Ok from a cardiac standpoint for discharge planning as pt does not want any further work up done.
--- NOTE | 2017-05-22 09:46 | PN ---
Progress Note (short form) - Note Progress Note: Neurology History of Present Illness 81 year old male BIBA from home with PMH of gout, leukemia (untreated currently ), CAD (s/p triple bypass), and HTN presenting to the ED s/p a syncopal episode at home. He was found at home by EMS on the floor with multiple abrasions and contusions. He states that he may have passed out prior to falling but is unsure, he does remember feeling lightheaded. He was admitted for further evaluation. CT head completed and did not show acute changes. During my interaction last Sunday, was in hallway, irritable, would not cooperate with nurse. Was not clear on location. Was not wanting to participate with staff when asked to stay seated and avoid falls. Would not go to chair or go to bed when requested. Over weekend, completed MRI brain and did not show acute changes. Today, still able to tell me location, date, calm and cooperative , pleasant and interactive. For discharge home today, VNS brochure at bedside. Appears to be stable and at baseline. Active Medications Acetaminophen (Tylenol -) 650 mg PO Q6H PRN PRN Reason: FEVER OR PAIN Allopurinol (Zyloprim -) 100 mg PO DAILY [facility] Last Admin: 05/22/17 09:27 Dose: 100 mg Aspirin (Ecotrin -) 81 mg PO DAILY [facility] Last Admin: 05/22/17 09:27 Dose: 81 mg Atorvastatin Calcium (Lipitor -) 20 mg PO HS [facility] Last Admin: 05/21/17 21:04 Dose: 20 mg Fluticasone Propionate (Flonase -) 2 spray NS DAILY [facility] Last Admin: 05/22/17 09:28 Dose: 2 spray Loratadine (Claritin -) 10 mg PO DAILY [facility] Last Admin: 05/22/17 09:27 Dose: 10 mg Metoprolol Succinate (Toprol Xl -) 25 mg PO DAILY [facility] Last Admin: 05/22/17 09:28 Dose: 25 mg Prednisone (Deltasone -) 10 mg PO DAILY [facility] Last Admin: 05/22/17 09:28 Dose: 10 mg Ranitidine HCl (Zantac -) 150 mg PO BID [facility] Last Admin: 05/22/17 09:27 Dose: 150 mg Sodium Chloride ([place] Nasal [place] -) 2 spray NS BID PRN PRN Reason: NASAL CONGESTION *Physical Exam Vital Signs Temperature 98.3 F 05/22/17 05:47 Pulse Rate 61 05/22/17 05:47 Respiratory Rate 18 05/22/17 05:47 Blood Pressure 153/61 05/22/17 05:47 O2 Sat by Pulse Oximetry (%) 97 05/21/17 21:00 - Physical Exam General Appearance: Yes: Nourished, Appropriately Dressed. No: Apparent Distress HEENT: positive: EOMI, RUBY, Normal ENT Inspection, Normal Voice Neck: positive: Tender (tender cervical spine), Trachea midline, Normal Thyroid , Supple. negative: Rigid Respiratory/Chest: positive: Lungs Clear, Normal Breath Sounds. negative: Chest Tender, Respiratory Distress, Accessory Muscle Use Cardiovascular: positive: Regular Rhythm, Regular Rate. negative: Murmur Gastrointestinal/Abdominal: positive: Normal Bowel Sounds, Flat, Soft. negative : Tender Musculoskeletal: positive: Vertebral Tenderness (thoracic , lumbar, and sacral spine). negative: Normal Inspection Extremity: positive: Normal Range of Motion. negative: Normal Inspection ( abrasion on elbow) Integumentary: positive: Dry, Warm. negative: Normal Color (abrasion over elbow and forehead) Neurologic: A wake, alert, not cn deficits, no dysathria, strenght grossly intact, sensory intact, ambulates but antalgic in gait CBCD WBC 4.9 K/mm3 (4.0-10.0) 05/22/17 07:45 RBC 3.46 M/mm3 (4.00-5.60) L 05/22/17 07:45 Hgb 11.2 GM/dL (11.7-16.9) L 05/22/17 07:45 Hct 32.5 % (35.4-49) L 05/22/17 07:45 MCV 93.8 fl (80-96) 05/22/17 07:45 MCHC 34.4 g/dl (32.0-35.9) 05/22/17 07:45 RDW 15.9 % (11.9-15.9) 05/22/17 07:45 Plt Count 225 K/MM3 (134-434) 05/22/17 07:45 MPV 6.1 fl (7.5-11.1) L 05/22/17 07:45 CMP Sodium 144 mmol/L (136-145) 05/22/17 07:45 Potassium 4.0 mmol/L (3.5-5.1) 05/22/17 07:45 Chloride 111 mmol/L (98-107) H 05/22/17 07:45 Carbon Dioxide 22 mmol/L (21-32) 05/22/17 07:45 Anion Gap 11 (8-16) 05/22/17 07:45 BUN 27 mg/dL (7-18) H 05/22/17 07:45 Creatinine 1.1 mg/dL (0.7-1.3) 05/22/17 07:45 Creat Clearance w eGFR > 60 (>60) 05/21/17 07:45 Calcium 8.4 mg/dL (8.5-10.1) L 05/22/17 07:45 Total Bilirubin 0.5 mg/dL (0.2-1.0) D 05/21/17 07:45 AST 36 U/L (15-37) D 05/21/17 07:45 ALT 20 U/L (12-78) 05/21/17 07:45 Alkaline Phosphatase 106 U/L (45-117) 05/21/17 07:45 Total Protein 6.3 g/dl (6.4-8.2) L 05/21/17 07:45 Albumin 3.4 g/dl (3.4-5.0) 05/21/17 07:45 Ct head reviewed Medical Decision Making 81 year old male BIBA from home with PMH of gout, leukemia (untreated currently) , CAD (s/p triple bypass), and HTN presenting to the ED s/p a syncopal episode at home. He was found at home by EMS on the floor with multiple abrasions and contusions. CT head completed and did not show acute changes. MRI brain reviewed and no acute changes Much improved No longer aggitated Oriented to person place and date Plan is for discharge, recommend family and/or VNS monitor patient for any changes in mental status or recurrence of confusion Currently at baseline and neurologically stable, ok for discharge Monitor blood pressure, continue anti-HTN meds, maintain < 140/90 Fall precautions
[2017-05-22 10:41] VITALS: BP 166/58; PULSE 58; TEMP 98.1
== END 2017-05-22 13:52 | disposition home health service (06) | DRG 280 ==
LOC: JER 13:54 → JERBED 16:12 → J8W 05-18 15:40
PROVIDERS: ADMIT Family Medicine; ATTEND Family Medicine
DX: I21.4 Non-ST elevation (NSTEMI) myocardial infarction (principal); G93.41 Metabolic encephalopathy; C92.00 Acute myeloblastic leukemia, not having achieved remission; I44.7 Left bundle-branch block, unspecified; E87.6 Hypokalemia; M10.9 Gout, unspecified; I25.10 Atherosclerotic heart disease of native coronary artery without angina pectoris; E78.5 Hyperlipidemia, unspecified; I44.0 Atrioventricular block, first degree; S50.319A Abrasion of unspecified elbow, initial encounter; S00.81XA Abrasion of other part of head, initial encounter; W18.39XA Other fall on same level, initial encounter; Y93.89 Activity, other specified; Y92.098 Other place in other non-institutional residence as the place of occurrence of the external cause; Z85.820 Personal history of malignant melanoma of skin; Z87.891 Personal history of nicotine dependence; Z66 Do not resuscitate; Z95.1 Presence of aortocoronary bypass graft; Z85.118 Personal history of other malignant neoplasm of bronchus and lung
CPT/HCPCS: 36415; 70450-TC; 70551-TC; 71010-TC; 72070-TC; 72100-TC; 72125-TC; 80048; 80053; 80061; 81003; 81015; 82550; 82553; 83036; 83605; 83721; 83735; 84484; 85025; 85027; 85730; 86850; 86900; 86901; 87040; 87086; 87186; 90688; 93005; 93010; 93306-TC; 97116-GP; 97161-GP; 99285-25; G0008

== ENCOUNTER 2017-10-17 11:02 | Inpatient (IN) | payer OTHER, MEDICARE ==
[2017-10-17 12:02] VITALS: BMI 28.2
--- NOTE | 2017-10-17 12:12 | PDOC ---
History of Present Illness - General History Source: Patient, Family Exam Limitations: No Limitations - History of Present Illness Initial Comments: 10/17/17 12:44 The patient is an 82 year old male with a significant PMH of lung CA (s/p nodules), melanoma, AML, triple bypass, and HTN who presents to the emergency department with low hemoglobin. The patient reports feeling generally weak the last few days. He reports getting his routine blood work done at home by Dr. Galvez office and was told his hemoglobin was low, prompting his visit. The patient has had multiple transfusions in the past and is transfusion dependent. The patient denies chest pain, shortness of breath, headache and dizziness. Denies fever, chills, nausea, vomit, diarrhea and constipation. Denies dysuria, frequency, urgency and hematuria. Allergies: NKA Past surgical history: Triple bypass surgery. Social history: Former smoker. Social alcohol use. No reported drug use. PCP: Dr. Negron Onc: Dr. Barakat <Ethan Bruce - Last Filed: 10/17/17 13:45> <Jc Bynum - Last Filed: 10/17/17 14:17> - General Chief Complaint: Weakness Stated Complaint: WEAKNESS Time Seen by Provider: 10/17/17 12:11 Past History <Ethan Bruce - Last Filed: 10/17/17 13:45> - Past Medical History Cancer: Yes (LUNG S/P NODULE,MELANOMA,LEUKEMIA) Cardiac Disorders: Yes (BYPASS TRIPLE) COPD: No HTN: Yes - Surgical History Cardiac Surgery: Yes (bypass) - Suicide/Smoking/Psychosocial Hx Smoking History: Unknown if ever smoked Have you smoked in the past 12 months: No If you are a former smoker, when did you quit?: 12 YRS Information on smoking cessation initiated: No Hx Alcohol Use: No Drug/Substance Use Hx: No Substance Use Type: None <Jc Bynum - Last Filed: 10/17/17 14:17> - Past Medical History Allergies/Adverse Reactions: Allergies Allergy/AdvReac Type Severity Reaction Status Date / Time No Known Allergies Allergy Verified 10/17/17 11:51 Home Medications: Ambulatory Orders Allopurinol [Zyloprim -] 100 mg PO DAILY 10/17/17 Alprazolam [Xanax] 0.5 mg PO BID 10/17/17 Aspirin 40.5 mg PO DAILY 10/17/17 Atorvastatin Ca [Lipitor] 40 mg PO HS 10/17/17 Ergocalciferol (Vitamin D2) [Vitamin D2] 1.25 unit PO DAILY 10/17/17 Iron 325 mg PO TID 10/17/17 Levofloxacin 250 mg PO DAILY 10/17/17 Ranitidine [Zantac -] 150 mg PO BID 10/17/17 Tramadol HCl 50 mg PO Q6H PRN 10/17/17 Voriconazole 200 mg PO BID 10/17/17 Review of Systems - Review of Systems Able to Perform ROS?: Yes Comments:: 10/17/17 12:44 GENERAL/CONSTITUTIONAL: (+) Generalized weakness. No fever or chills. HEAD, EYES, EARS, NOSE AND THROAT: No change in vision. No ear pain or discharge. No sore throat. CARDIOVASCULAR: No chest pain or shortness of breath. RESPIRATORY: No cough, wheezing, or hemoptysis. GASTROINTESTINAL: No nausea, vomiting, diarrhea or constipation. GENITOURINARY: No dysuria, frequency, or change in urination. MUSCULOSKELETAL: No joint or muscle swelling or pain. No neck or back pain. SKIN: No rash NEUROLOGIC: No headache, vertigo, loss of consciousness, or change in strength/ sensation. ENDOCRINE: No increased thirst. No abnormal weight change. HEMATOLOGIC/LYMPHATIC: No anemia, easy bleeding, or history of blood clots. ALLERGIC/IMMUNOLOGIC: No hives or skin allergy. <Ethan Bruce - Last Filed: 10/17/17 13:45> *Physical Exam - Vital Signs Last Vital Signs Temp Pulse Resp BP Pulse Ox 97.2 F L 85 18 109/63 97 10/17/17 11:02 10/17/17 11:02 10/17/17 11:02 10/17/17 11:02 10/17/17 11:02 - Physical Exam Comments: 10/17/17 13:46 GENERAL: (+) Pale appearing. Awake, alert, and fully oriented, in no acute distress HEAD: No signs of trauma EYES: PERRLA, EOMI, sclera anicteric, conjunctiva clear ENT: Auricles normal inspection, hearing grossly normal, nares patent, oropharynx clear without exudates. Moist mucosa NECK: Normal ROM, supple, no lymphadenopathy, JVD, or masses LUNGS: Breath sounds equal, clear to auscultation bilaterally. No wheezes, and no crackles HEART: 2/6 systolic murmur. Regular rate and rhythm, normal S1 and S2, no rubs or gallops ABDOMEN: Soft, nontender, normoactive bowel sounds. No guarding, no rebound. No masses EXTREMITIES: Normal range of motion, no edema. No clubbing or cyanosis. No cords, erythema, or tenderness NEUROLOGICAL: AO. Cranial nerves II through XII grossly intact. Normal speech, normal gait SKIN: Warm, Dry, normal turgor, no rashes or lesions noted. No petechiae. <Ethan Bruce - Last Filed: 10/17/17 13:45> - Vital Signs Last Vital Signs Temp Pulse Resp BP Pulse Ox 97.2 F L 85 18 109/63 97 10/17/17 11:02 10/17/17 11:02 10/17/17 11:02 10/17/17 11:02 10/17/17 11:02 <Jc Bynum - Last Filed: 10/17/17 14:17> ED Treatment Course - LABORATORY CBC & Chemistry Diagram: 10/17/17 12:36 10/17/17 12:36 <Ethan Bruce - Last Filed: 10/17/17 13:45> - LABORATORY CBC & Chemistry Diagram: 10/17/17 12:36 10/17/17 12:36 <Jc Bynum - Last Filed: 10/17/17 14:17> Medical Decision Making - Medical Decision Making 10/17/17 14:14 Patient is a pale appearing 82-year-old male with multiple comorbidities, history of AML who presents to the ER for generalized weakness, malaise and difficulty breathing at rest and with minimal exertion that has worsened over the past several days. Patient reports being transfusion dependent due to AML. Patient denies hematuria/melena/bright red blood per rectum. Patient also denies fevers/chills/cough/in the ER, patient is awake and alert, hemodynamically stable. H&H is noted to be 6.1 and 17. 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 Will transfuse 2 units of packed cells. Will rule out GI bleeding. Will admit with hematology/oncology consultation. <Jc Bynum - Last Filed: 10/17/17 14:17> *DC/Admit/Observation/Transfer - Attestations Scribe Attestion: 10/17/17 12:45 Documentation prepared by Ethan Bruce, acting as chief medical director for Jc Bynum MD. <Ethan Bruce - Last Filed: 10/17/17 13:45> - Discharge Dispostion Admit: Yes - Attestations Physician Attestion: 10/17/17 14:14 The documentation was prepared by the scribe under my direct supervision. I have reviewed the documentation which correctly represents the findings, medical decision-making and critical action taken by me. <Jc Bynum - Last Filed: 10/17/17 14:17> Diagnosis at time of Disposition: AML (acute myeloblastic leukemia) Qualifiers: Leukemia Active/Remission status: without remission Qualified Code(s): C92.00 - Acute myeloblastic leukemia, not having achieved remission Anemia Qualifiers: Anemia type: unspecified type Qualified Code(s): D64.9 - Anemia, unspecified - Discharge Dispostion Condition at time of disposition: Fair - Referrals Referrals: Vonda Negron MD [Primary Care Provider] - - Patient Instructions - Post Discharge Activity
[2017-10-17 13:06] LABS: HEMATOCRIT 17.9 % (35.4-49); MCH 34.2 pg (25.7-33.7); MCHC 34.3 g/dl (32.0-35.9); MEAN CELL VOLUME 99.7 fl (80-96); PLATELET COUNT 171 K/MM3 (134-434); RDW 17.5 % (11.9-15.9)
[2017-10-17 13:17] LABS: HEMOGLOBIN 6.1 GM/dL (11.7-16.9)
[2017-10-17 13:23] LABS: INR 1.17 (0.82-1.09); PROTHROMBIN TIME (PATIENT) 13.2 SEC (9.98-11.88)
[2017-10-17 13:31] LABS: ALBUMIN 3.3 g/dl (3.4-5.0); ALK PHOS 129 U/L (45-117); ANION GAP 11 (8-16); BILIRUBIN,TOTAL 0.4 mg/dL (0.2-1.0); BLOOD UREA NITROGEN 13 mg/dL (7-18); CALCIUM 8.3 mg/dL (8.5-10.1); CHLORIDE 99 mmol/L (98-107); CO2 24 mmol/L (21-32); CREATININE 1.1 mg/dL (0.7-1.3); GLUCOSE,RANDOM 98 mg/dL (74-106); SGPT/ALT 12 U/L (12-78); SODIUM 134 mmol/L (136-145); TOT PROT 6.4 g/dl (6.4-8.2)
[2017-10-17 13:37] LABS: POTASSIUM 4.6 mmol/L (3.5-5.1); SGOT/AST 23 U/L (15-37)
[2017-10-17 13:48] LABS: ANISOCYTOSIS 2+; MACROCYTOSIS 1+; OVALOCYTE 1+; PLATELET ESTIMATE NORMAL; TARGET CELLS 1+
[2017-10-17] MEDS ORDERED: traMADol HCL 50 MG TABLET PO PRN (17:45)
[2017-10-17] MEDS ORDERED: diazePAM 2 MG TABLET PO PRN (17:45)
[2017-10-17] MEDS ORDERED: ACETAMINOPHEN 325 MG TABLET (FP) PO PRN (17:45)
--- NOTE | 2017-10-17 17:47 | HP ---
Admitting History and Physical - Primary Care Physician PCP: Vonda Negron - Admission Chief Complaint: weakness/worsening anemia History of Present Illness: 82 Y/O MALE HISTORY CAD, MALIGNANT MELANOMA, GOUT, HTN, LIPIDEMIA WITH AML. PRESENTS WITH WORSENING ANEMIA, HYPONATREMIA, WEAKNESS. History Source: Patient - Past Medical History Cardiovascular: Yes: CAD, HTN, Hyperlipdemia Pulmonary: Yes: Cancer Heme/Onc: Yes: Cancer Rheumatology: Yes: Gout - Past Surgical History Past Surgical History: Yes: CABG - Smoking History Smoking history: Unknown if ever smoked Have you smoked in the past 12 months: No If you are a former smoker, when did you quit?: 12 YRS - Alcohol/Substance Use Hx Alcohol Use: No - Social History History of Recent Travel: No Home Medications - Allergies Allergies/Adverse Reactions: Allergies Allergy/AdvReac Type Severity Reaction Status Date / Time No Known Allergies Allergy Verified 10/17/17 11:51 - Home Medications Home Medications: Ambulatory Orders Allopurinol [Zyloprim -] 100 mg PO DAILY 10/17/17 Alprazolam [Xanax] 0.5 mg PO BID 10/17/17 Aspirin 40.5 mg PO DAILY 10/17/17 Atorvastatin Ca [Lipitor] 40 mg PO HS 10/17/17 Ergocalciferol (Vitamin D2) [Vitamin D2] 1.25 unit PO DAILY 10/17/17 Iron 325 mg PO TID 10/17/17 Levofloxacin 250 mg PO DAILY 10/17/17 Ranitidine [Zantac -] 150 mg PO BID 10/17/17 Tramadol HCl 50 mg PO Q6H PRN 10/17/17 Voriconazole 200 mg PO BID 10/17/17 Review of Systems - Review of Systems Constitutional: reports: Loss of Appetite, Weakness Eyes: reports: No Symptoms HENT: reports: No Symptoms Neck: reports: No Symptoms Cardiovascular: reports: No Symptoms Respiratory: reports: SOB Gastrointestinal: reports: No Symptoms Genitourinary: reports: No Symptoms Musculoskeletal: reports: No Symptoms Integumentary: reports: No Symptoms Neurological: reports: No Symptoms Endocrine: reports: No Symptoms Hematology/Lymphatic: reports: No Symptoms Psychiatric: reports: No Symptoms Physical Examination Vital Signs: Vital Signs Temperature 97.2 F L 10/17/17 11:02 Pulse Rate 88 10/17/17 16:50 Respiratory Rate 18 10/17/17 16:50 Blood Pressure 141/104 10/17/17 16:50 O2 Sat by Pulse Oximetry (%) 96 10/17/17 16:50 Constitutional: Yes: Moderate Distress Eyes: Yes: WNL HENT: Yes: WNL Neck: Yes: WNL Cardiovascular: Yes: WNL Respiratory: Yes: WNL Gastrointestinal: Yes: WNL Musculoskeletal: Yes: WNL Extremities: Yes: WNL Edema: Yes Edema: LLE: Trace, RLE: Trace Peripheral Pulses WNL: Yes Integumentary: Yes: WNL Wound/Incision: Yes: Clean/Dry Neurological: Yes: WNL ...Motor Strength: WNL Psychiatric: Yes: WNL Labs: CBC, BMP 10/17/17 12:36 10/17/17 12:36 Problem List - Problems (1) AML (acute myeloblastic leukemia) Code(s): C92.00 - ACUTE MYELOBLASTIC LEUKEMIA, NOT HAVING ACHIEVED REMISSION Qualifiers: Leukemia Active/Remission status: without remission Qualified Code(s): C92.00 - Acute myeloblastic leukemia, not having achieved remission (2) Anemia Code(s): D64.9 - ANEMIA, UNSPECIFIED Qualifiers: Anemia type: unspecified type Qualified Code(s): D64.9 - Anemia, unspecified (3) Hyponatremia Code(s): E87.1 - HYPO-OSMOLALITY AND HYPONATREMIA (4) Acute kidney injury Code(s): N17.9 - ACUTE KIDNEY FAILURE, UNSPECIFIED (5) Chronic diastolic (congestive) heart failure Code(s): I50.32 - CHRONIC DIASTOLIC (CONGESTIVE) HEART FAILURE (6) Dizziness Code(s): R42 - DIZZINESS AND GIDDINESS (7) Gout attack Code(s): M10.9 - GOUT, UNSPECIFIED Qualifiers: Gout site: foot Gout etiology: unspecified cause Laterality: left Qualified Code(s): M10.9 - Gout, unspecified (8) HLD (hyperlipidemia) Code(s): E78.5 - HYPERLIPIDEMIA, UNSPECIFIED (9) HTN (hypertension) Code(s): I10 - ESSENTIAL (PRIMARY) HYPERTENSION Qualifiers: Hypertension type: essential hypertension Qualified Code(s): I10 - Essential (primary) hypertension (10) Hx of CABG Code(s): Z95.1 - PRESENCE OF AORTOCORONARY BYPASS GRAFT Assessment/Plan TRANSFUSE NEEDED ONCOLOGY EVAL NEPHROLOGY EVAL 02 SUPPORT MONITOR LEVELS
--- NOTE | 2017-10-17 19:24 | PN ---
Progress Note (short form) - Note Progress Note: Oncology Progress note: is a 82 year old male with h/o, CAD s/p CABG, metastatic melanoma to lung s/p resection and AML diagnosed in 01/2017!, who presented Hgb of 6. In the past, diagnosis of AML was made at [facility] [place] ,by a bone marrow biopsy and has declined treatment and per advanced directive is DNR/DNI and no aggressive measures. Pt seen and examined. Says that he receives blood work from PMD every other week. O/E: General: In NAD HEENT: palor noted, normal mucous membranes Lungs: CTA b/l Abdomen: soft Non tender LE: no edema Neuro: Alert ,oriented and awake x3. Last Vital Signs Temp Pulse Resp BP Pulse Ox 98.7 F 84 18 160/82 97 10/17/17 19:00 10/17/17 19:00 10/17/17 19:00 10/17/17 19:00 10/17/17 18:30 CBC, BMP 10/17/17 12:36 10/17/17 12:36 Current Medications Generic Name Dose Route Start Last Admin Trade Name Freq PRN Reason Stop Dose Admin Acetaminophen 650 mg 10/17/17 17:45 Tylenol - PO Q6H PRN FEVER Allopurinol 200 mg 10/18/17 10:00 Zyloprim - PO DAILY MABEL Aspirin 81 mg 10/18/17 10:00 Ecotrin - PO DAILY MABEL Atorvastatin Calcium 20 mg 10/17/17 22:00 Lipitor - PO HS MABEL Diazepam 2 mg 10/17/17 17:45 Valium - PO 10/20/17 17:45 Q4H PRN ANXIETY Ferrous Sulfate 325 mg 10/18/17 08:00 Feosol - PO TIDCM MABEL Metoprolol Succinate 25 mg 10/17/17 22:00 Toprol Xl - PO BID MABEL Ranitidine HCl 150 mg 10/17/17 22:00 Zantac - PO BID MABEL Tramadol HCl 50 mg 10/17/17 17:45 Ultram - PO Q6H PRN PAIN LEVEL 6-10 Voriconazole 200 mg 10/17/17 22:00 Vfend (Restricted To Id) PO BID MABEL Voriconazole 200 mg 10/17/17 22:00 Vfend (Restricted To Id) PO 10/17/17 22:01 ONCE ONE AML -not on treatment since 2016 per pts wishes -diagnosed in 01/2017 -On supportive care, home CBC checks -for 2U PRBC -labs in the am.
[2017-10-17] MEDS: RANITIDINE HCL 150 MG TABLET (FP) PO SCH (21:55)
[2017-10-17] MEDS: ATORVASTATIN CA 20 MG TABLET (FP) PO SCH (21:56)
[2017-10-17] MEDS: metoPROLOL SUCCINATE 25 MG TAB.SR.24H (FP) PO SCH (21:56)
[2017-10-17] MEDS ORDERED: VORICONAZOLE 200 MG TABLET (RESTRICTED TO ID) PO ONE (22:00)
[2017-10-17] MEDS ORDERED: PT OWN MED DRAWER 7, Y5N ONE (22:04)
[2017-10-18 07:50] LABS: HEMATOCRIT 23.7 % (35.4-49); HEMOGLOBIN 8.4 GM/dL (11.7-16.9); MCH 33.5 pg (25.7-33.7); MCHC 35.6 g/dl (32.0-35.9); MEAN PLT VOLUME 6.5 fl (7.5-11.1); PLATELET COUNT 174 K/MM3 (134-434); RBC 2.52 M/mm3 (4.00-5.60); RDW 20.2 % (11.9-15.9); WHITE BLOOD COUNT 4.4 K/mm3 (4.0-10.0)
[2017-10-18 08:05] LABS: ALBUMIN 3.3 g/dl (3.4-5.0); ALK PHOS 131 U/L (45-117); ANION GAP 7 (8-16); BILIRUBIN,TOTAL 0.7 mg/dL (0.2-1.0); BLOOD UREA NITROGEN 14 mg/dL (7-18); CALCIUM 7.8 mg/dL (8.5-10.1); CHLORIDE 100 mmol/L (98-107); CO2 23 mmol/L (21-32); CREATININE 1.1 mg/dL (0.7-1.3); GLUCOSE,RANDOM 91 mg/dL (74-106); LDH 277 U/L (87-241); POTASSIUM 4.6 mmol/L (3.5-5.1); SGOT/AST 12 U/L (15-37); SGPT/ALT 10 U/L (12-78); SODIUM 130 mmol/L (136-145); TOT PROT 6.3 g/dl (6.4-8.2); URIC ACID 4.2 mg/dL (2.6-7.2)
[2017-10-18] MEDS: FERROUS SO4 325 MG TABLET (FP) PO SCH ×3 (08:24→17:57)
[2017-10-18] MEDS ORDERED: PT OWN MED DRAWER 7, Y5N ONE ×3 (09:38→20:21)
[2017-10-18] MEDS: ASPIRIN COATED 81 MG TABLET.EC PO SCH (09:43)
[2017-10-18] MEDS: RANITIDINE HCL 150 MG TABLET (FP) PO SCH ×2 (09:43→21:20)
[2017-10-18] MEDS: metoPROLOL SUCCINATE 25 MG TAB.SR.24H (FP) PO SCH ×2 (09:44→21:20)
[2017-10-18] MEDS: VORICONAZOLE 200 MG TABLET (RESTRICTED TO ID) PO SCH ×2 (09:44→21:20)
[2017-10-18] MEDS: ALLOPURINOL 100 MG TABLET (FP) PO SCH (09:44)
--- NOTE | 2017-10-18 10:43 | PN ---
Progress Note, Physician Chief Complaint: AWAKE ALERT OFFERS NO COMPLAINTS COMFORTABLE HYPONATREMIA 130 TODAY - Current Medication List Current Medications: Active Medications Acetaminophen (Tylenol -) 650 mg PO Q6H PRN PRN Reason: FEVER Allopurinol (Zyloprim -) 200 mg PO DAILY [facility] Last Admin: 10/18/17 09:44 Dose: 200 mg Aspirin (Ecotrin -) 81 mg PO DAILY [facility] Last Admin: 10/18/17 09:43 Dose: 81 mg Atorvastatin Calcium (Lipitor -) 20 mg PO HS [facility] Last Admin: 10/17/17 21:56 Dose: 20 mg Diazepam (Valium -) 2 mg PO Q4H PRN PRN Reason: ANXIETY Stop: 10/20/17 17:45 Ferrous Sulfate (Feosol -) 325 mg PO TIDCM [facility] Last Admin: 10/18/17 08:24 Dose: 325 mg Metoprolol Succinate (Toprol Xl -) 25 mg PO BID [facility] Last Admin: 10/18/17 09:44 Dose: 25 mg Ranitidine HCl (Zantac -) 150 mg PO BID [facility] Last Admin: 10/18/17 09:43 Dose: 150 mg Tramadol HCl (Ultram -) 50 mg PO Q6H PRN PRN Reason: PAIN LEVEL 6-10 Voriconazole (Vfend (Restricted To Id)) 200 mg PO BID [facility] Last Admin: 10/18/17 09:44 Dose: 200 mg - Objective Vital Signs: Vital Signs Temperature 99.3 F 10/18/17 06:00 Pulse Rate 83 10/18/17 06:00 Respiratory Rate 18 10/18/17 06:00 Blood Pressure 160/84 10/18/17 06:00 O2 Sat by Pulse Oximetry (%) 97 10/17/17 23:00 Constitutional: Yes: No Distress Eyes: Yes: WNL HENT: Yes: WNL, Tonsillar Exudate Cardiovascular: Yes: WNL Respiratory: Yes: WNL Gastrointestinal: Yes: WNL Genitourinary: Yes: WNL Musculoskeletal: Yes: Muscle Weakness Extremities: Yes: WNL Edema: No Peripheral Pulses WNL: Yes Integumentary: Yes: WNL Wound/Incision: Yes: Clean/Dry Neurological: Yes: WNL ...Motor Strength: WNL Psychiatric: Yes: WNL Labs: CBC, BMP 10/18/17 07:25 10/18/17 07:25 INR, PTT INR 1.17 (0.82-1.09) H 10/17/17 12:36 Problem List - Problems (1) Hyponatremia Code(s): E87.1 - HYPO-OSMOLALITY AND HYPONATREMIA (2) AML (acute myeloblastic leukemia) Code(s): C92.00 - ACUTE MYELOBLASTIC LEUKEMIA, NOT HAVING ACHIEVED REMISSION Qualifiers: Leukemia Active/Remission status: without remission Qualified Code(s): C92.00 - Acute myeloblastic leukemia, not having achieved remission (3) Anemia Code(s): D64.9 - ANEMIA, UNSPECIFIED Qualifiers: Anemia type: unspecified type Qualified Code(s): D64.9 - Anemia, unspecified (4) Acute kidney injury Code(s): N17.9 - ACUTE KIDNEY FAILURE, UNSPECIFIED (5) Chronic diastolic (congestive) heart failure Code(s): I50.32 - CHRONIC DIASTOLIC (CONGESTIVE) HEART FAILURE (6) Dizziness Code(s): R42 - DIZZINESS AND GIDDINESS (7) HTN (hypertension) Code(s): I10 - ESSENTIAL (PRIMARY) HYPERTENSION Qualifiers: Hypertension type: essential hypertension Qualified Code(s): I10 - Essential (primary) hypertension Assessment/Plan TRANSFUSE NEEDED HYPONATREMIA VOLUME RELATED? NEPHROLOGY EVAL OOB TO CHAIR INCENTIVE SPIROMETRY ONCOLOGY EVAL
--- NOTE | 2017-10-18 14:46 | CONSULT ---
Consult Consult Specialty:: Nephrology Reason for Consultation:: hyponatremia - History of Present Illness Chief Complaint: sent in for hypoglycemia History of Present Illness: Pt is an 82 year old man with pmhx of hyponatremia, lung cancer, melanoma, AMP, CAD, CABG, and HTN who was sent in for low hg. He was found to be hyponatremic and I was called to evaluate him. He has had hyponatremia in the past and was being worked up for siadh. He is not on a fluid restriction at the moment. He complains of weakness and fatigue. He denies loss of balance or headache. He has been transfusion dependent. He denies dysuria or hematuria. - History Source History Provided By: Patient, Medical Record - Past Medical History Cardio/Vascular: Yes: CAD, HTN, Hyperlipdemia Pulmonary: Yes: Cancer Renal/: Yes: Other (hyponatremia) Rheumatology: Yes: Gout - Past Surgical History Past Surgical History: Yes: CABG - Alcohol/Substance Use Hx Alcohol Use: No - Smoking History Smoking history: Unknown if ever smoked Have you smoked in the past 12 months: No If you are a former smoker, when did you quit?: 12 YRS - Social History History of Recent Travel: No Home Medications - Allergies Allergies/Adverse Reactions: Allergies Allergy/AdvReac Type Severity Reaction Status Date / Time No Known Allergies Allergy Verified 10/17/17 11:51 - Home Medications Home Medications: Ambulatory Orders Allopurinol [Zyloprim -] 100 mg PO DAILY 10/17/17 Alprazolam [Xanax] 0.5 mg PO BID 10/17/17 Aspirin 40.5 mg PO DAILY 10/17/17 Atorvastatin Ca [Lipitor] 40 mg PO HS 10/17/17 Ergocalciferol (Vitamin D2) [Vitamin D2] 1.25 unit PO DAILY 10/17/17 Iron 325 mg PO TID 10/17/17 Levofloxacin 250 mg PO DAILY 10/17/17 Ranitidine [Zantac -] 150 mg PO BID 10/17/17 Tramadol HCl 50 mg PO Q6H PRN 10/17/17 Voriconazole 200 mg PO BID 10/17/17 Family Disease History - Family Disease History Family History: Denies Review of Systems - Review of Systems Constitutional: reports: Malaise Eyes: reports: No Symptoms HENT: reports: No Symptoms Neck: reports: No Symptoms Cardiovascular: reports: No Symptoms Respiratory: reports: SOB on Exertion Gastrointestinal: reports: No Symptoms Genitourinary: reports: No Symptoms Musculoskeletal: reports: No Symptoms Integumentary: reports: No Symptoms Neurological: reports: No Symptoms Endocrine: reports: No Symptoms Hematology/Lymphatic: reports: No Symptoms Psychiatric: reports: No Symptoms Physical Exam Vital Signs: Vital Signs Temperature 99.3 F 10/18/17 06:00 Pulse Rate 83 10/18/17 06:00 Respiratory Rate 18 10/18/17 06:00 Blood Pressure 160/84 10/18/17 06:00 O2 Sat by Pulse Oximetry (%) 96 10/18/17 09:00 Constitutional: Yes: Calm Eyes: Yes: Conjunctiva Clear HENT: Yes: Atraumatic Neck: Yes: Supple Cardiovascular: Yes: S1, S2 Respiratory: Yes: CTA Bilaterally Gastrointestinal: Yes: Soft Renal/: Yes: WNL Musculoskeletal: Yes: WNL Edema: No Neurological: Yes: Oriented Psychiatric: Yes: Oriented Labs: CBC, BMP 10/18/17 07:25 10/18/17 07:25 Laboratory Tests 10/17/17 10/17/17 10/18/17 12:36 12:36 07:25 Hgb 6.1 L* D 8.4 L D Sodium 134 L Creatinine 1.1 10/18/17 07:25 Hgb Sodium 130 L Creatinine 1.1 Imaging - Results Chest X-ray: Report Reviewed Problem List - Problems (1) AML (acute myeloblastic leukemia) Code(s): C92.00 - ACUTE MYELOBLASTIC LEUKEMIA, NOT HAVING ACHIEVED REMISSION Qualifiers: Leukemia Active/Remission status: without remission Qualified Code(s): C92.00 - Acute myeloblastic leukemia, not having achieved remission (2) Anemia Code(s): D64.9 - ANEMIA, UNSPECIFIED Qualifiers: Anemia type: unspecified type Qualified Code(s): D64.9 - Anemia, unspecified (3) Hyponatremia Code(s): E87.1 - HYPO-OSMOLALITY AND HYPONATREMIA (4) HLD (hyperlipidemia) Code(s): E78.5 - HYPERLIPIDEMIA, UNSPECIFIED (5) HTN (hypertension) Code(s): I10 - ESSENTIAL (PRIMARY) HYPERTENSION Qualifiers: Hypertension type: essential hypertension Qualified Code(s): I10 - Essential (primary) hypertension Assessment/Plan Current Medications Generic Name Dose Route Start Last Admin Trade Name Freq PRN Reason Stop Dose Admin Acetaminophen 650 mg 10/17/17 17:45 Tylenol - PO Q6H PRN FEVER Allopurinol 200 mg 10/18/17 10:00 10/18/17 09:44 Zyloprim - PO 200 mg DAILY MABEL Administration Aspirin 81 mg 10/18/17 10:00 10/18/17 09:43 Ecotrin - PO 81 mg DAILY MABEL Administration Atorvastatin Calcium 20 mg 10/17/17 22:00 10/17/17 21:56 Lipitor - PO 20 mg HS MABEL Administration Diazepam 2 mg 10/17/17 17:45 Valium - PO 10/20/17 17:45 Q4H PRN ANXIETY Ferrous Sulfate 325 mg 10/18/17 08:00 10/18/17 12:41 Feosol - PO 325 mg TIDCM MABEL Administration Metoprolol Succinate 25 mg 10/17/17 22:00 10/18/17 09:44 Toprol Xl - PO 25 mg BID MABEL Administration Ranitidine HCl 150 mg 10/17/17 22:00 10/18/17 09:43 Zantac - PO 150 mg BID MABEL Administration Tramadol HCl 50 mg 10/17/17 17:45 Ultram - PO Q6H PRN PAIN LEVEL 6-10 Voriconazole 200 mg 10/18/17 10:00 10/18/17 09:44 Vfend (Restricted To Id) PO 200 mg BID MABEL Administration Impression 1. hyponatremia 2. anemia 3. leukopenia 4. hx lung cancer 5. hx melanoma 6. CAD 7. gout Plan - will restrict free water - check urine and plasma osm - check urine sodium - will need outpt follow up - monitor hg - will follow Dr Bray
--- NOTE | 2017-10-18 14:51 | PN ---
Progress Note (short form) - Note Progress Note: Pt seen and examined. denies any complains. feels better than yesterday O/E: General: In NAD HEENT: palor noted, normal mucous membranes Lungs: CTA b/l Abdomen: soft Non tender LE: no edema Neuro: Alert ,oriented and awake x3. Temp Pulse Resp BP Pulse Ox 99.3 F 83 18 160/84 96 10/18/17 06:00 10/18/17 06:00 10/18/17 06:00 10/18/17 06:00 10/18/17 09:00 CBC, BMP 10/18/17 07:25 10/18/17 07:25 Current Medications Generic Name Dose Route Start Last Admin Trade Name Freq PRN Reason Stop Dose Admin Acetaminophen 650 mg 10/17/17 17:45 Tylenol - PO Q6H PRN FEVER Allopurinol 200 mg 10/18/17 10:00 10/18/17 09:44 Zyloprim - PO 200 mg DAILY MABEL Administration Aspirin 81 mg 10/18/17 10:00 10/18/17 09:43 Ecotrin - PO 81 mg DAILY MABEL Administration Atorvastatin Calcium 20 mg 10/17/17 22:00 10/17/17 21:56 Lipitor - PO 20 mg HS MABEL Administration Diazepam 2 mg 10/17/17 17:45 Valium - PO 10/20/17 17:45 Q4H PRN ANXIETY Ferrous Sulfate 325 mg 10/18/17 08:00 10/18/17 12:41 Feosol - PO 325 mg TIDCM MABEL Administration Metoprolol Succinate 25 mg 10/17/17 22:00 10/18/17 09:44 Toprol Xl - PO 25 mg BID MABEL Administration Ranitidine HCl 150 mg 10/17/17 22:00 10/18/17 09:43 Zantac - PO 150 mg BID MABEL Administration Tramadol HCl 50 mg 10/17/17 17:45 Ultram - PO Q6H PRN PAIN LEVEL 6-10 Voriconazole 200 mg 10/18/17 10:00 10/18/17 09:44 Vfend (Restricted To Id) PO 200 mg BID MABEL Administration AML -not on treatment since 2016 per pts wishes -diagnosed in 01/2017 -On supportive care, home CBC checks -s/p 2U PRBC , Hgb 8.4 today , will monitor -labs in the am. -c/w Allopurinol HypoNa per renal
[2017-10-18] MEDS: ATORVASTATIN CA 20 MG TABLET (FP) PO SCH (21:19)
[2017-10-19 08:20] LABS: HEMATOCRIT 24.2 % (35.4-49); HEMOGLOBIN 8.4 GM/dL (11.7-16.9); MCH 32.8 pg (25.7-33.7); MCHC 34.7 g/dl (32.0-35.9); MEAN CELL VOLUME 94.5 fl (80-96); MEAN PLT VOLUME 6.6 fl (7.5-11.1); PLATELET COUNT 166 K/MM3 (134-434); RBC 2.56 M/mm3 (4.00-5.60); WHITE BLOOD COUNT 5.8 K/mm3 (4.0-10.0)
[2017-10-19 08:42] LABS: CHLORIDE 96 mmol/L (98-107); POTASSIUM 4.5 mmol/L (3.5-5.1); SODIUM 130 mmol/L (136-145)
[2017-10-19 08:59] LABS: ALBUMIN 3.3 g/dl (3.4-5.0); ALK PHOS 149 U/L (45-117); ANION GAP 14 (8-16); BILIRUBIN,TOTAL 0.4 mg/dL (0.2-1.0); BLOOD UREA NITROGEN 18 mg/dL (7-18); CALCIUM 8.3 mg/dL (8.5-10.1); CO2 20 mmol/L (21-32); CREATININE 1.2 mg/dL (0.7-1.3); GLUCOSE,RANDOM 87 mg/dL (74-106); SGOT/AST 21 U/L (15-37); SGPT/ALT 14 U/L (12-78); TOT PROT 6.5 g/dl (6.4-8.2)
[2017-10-19] MEDS: FERROUS SO4 325 MG TABLET (FP) PO SCH ×2 (09:44→12:48)
[2017-10-19] MEDS: RANITIDINE HCL 150 MG TABLET (FP) PO SCH (09:45)
[2017-10-19] MEDS: ALLOPURINOL 100 MG TABLET (FP) PO SCH (09:45)
[2017-10-19] MEDS: ASPIRIN COATED 81 MG TABLET.EC PO SCH (09:45)
[2017-10-19] MEDS: metoPROLOL SUCCINATE 25 MG TAB.SR.24H (FP) PO SCH (09:45)
[2017-10-19] MEDS: VORICONAZOLE 200 MG TABLET (RESTRICTED TO ID) PO SCH (09:48)
--- NOTE | 2017-10-19 10:30 | DS ---
Physical Examination Vital Signs: Vital Signs Temperature 98.9 F 10/19/17 06:00 Pulse Rate 81 10/19/17 06:00 Respiratory Rate 20 10/19/17 06:00 Blood Pressure 155/77 10/19/17 06:00 O2 Sat by Pulse Oximetry (%) 98 10/18/17 21:00 Constitutional: Yes: No Distress Eyes: Yes: WNL HENT: Yes: WNL Neck: Yes: WNL Cardiovascular: Yes: WNL Respiratory: Yes: WNL Gastrointestinal: Yes: WNL Renal/: Yes: WNL Musculoskeletal: Yes: WNL Extremities: Yes: WNL Edema: No Peripheral Pulses WNL: Yes Integumentary: Yes: WNL Wound/Incision: Yes: Clean/Dry Neurological: Yes: WNL ...Motor Strength: WNL Psychiatric: Yes: WNL Labs: CBC, BMP 10/19/17 07:00 10/19/17 07:00 Discharge Summary Reason For Visit: ACUTE MYELOID LEUKEMIA; ANEMIA Current Active Problems AML (acute myeloblastic leukemia) (Acute) Anemia (Acute) Hyponatremia (Acute) Procedures: Principal: cxr Hospital Course: admitted for weakness, sob, hyponatremia worse anemia, patient transfused prbc and worked up. today he feels better and denies chest pain or sob. blood levels improved will f/u in 1 week. Condition: Fair - Instructions Diet, Activity, Other Instructions: regular diet check labs in 1 week Referrals: Vonda Negron MD [Primary Care Provider] - Disposition: HOME - Home Medications Comprehensive Discharge Medication List: Ambulatory Orders Allopurinol [Zyloprim -] 100 mg PO DAILY 10/17/17 Alprazolam [Xanax] 0.5 mg PO BID 10/17/17 Aspirin 40.5 mg PO DAILY 10/17/17 Atorvastatin Ca [Lipitor] 40 mg PO HS 10/17/17 Ergocalciferol (Vitamin D2) [Vitamin D2] 1.25 unit PO DAILY 10/17/17 Iron 325 mg PO TID 10/17/17 Levofloxacin 250 mg PO DAILY 10/17/17 Ranitidine [Zantac -] 150 mg PO BID 10/17/17 Tramadol HCl 50 mg PO Q6H PRN 10/17/17 Voriconazole 200 mg PO BID 10/17/17 Acetaminophen [Tylenol .Regular Strength -] 650 mg PO Q6H PRN tablet 10/19/17 Allopurinol [Zyloprim -] 200 mg PO DAILY tablet 10/19/17 Aspirin Coated [Ecotrin -] 81 mg PO DAILY tablet.ec 10/19/17 Atorvastatin Ca [Lipitor] 20 mg PO HS tablet 10/19/17 Diazepam [Valium] 2 mg PO Q4H PRN tablet [facility] 4 10/19/17 Ferrous Sulfate [Feosol] 325 mg PO TIDCM ud 10/19/17 Metoprolol Succinate [Toprol XL -] 25 mg PO BID tab.sr.24h 10/19/17 Ranitidine [Zantac -] 150 mg PO BID tablet 10/19/17 Voriconazole [Vfend (Restricted To Id)] 200 mg PO BID tablet 10/19/17 traMADol HCL [Ultram -] 50 mg PO Q6H PRN tablet [facility] 4 10/19/17
[2017-10-19 10:55] VITALS: BP 146/89; PULSE 90; TEMP 97.9
--- NOTE | 2017-10-19 13:42 | PN ---
Progress Note, Physician History of Present Illness: Pt seen and examined at bedside. He is awake and appears comfortable. He denies shortness of breath. - Current Medication List Current Medications: Active Medications Acetaminophen (Tylenol -) 650 mg PO Q6H PRN PRN Reason: FEVER Allopurinol (Zyloprim -) 200 mg PO DAILY [facility] Last Admin: 10/19/17 09:45 Dose: 200 mg Aspirin (Ecotrin -) 81 mg PO DAILY [facility] Last Admin: 10/19/17 09:45 Dose: 81 mg Atorvastatin Calcium (Lipitor -) 20 mg PO HS [facility] Last Admin: 10/18/17 21:19 Dose: 20 mg Diazepam (Valium -) 2 mg PO Q4H PRN PRN Reason: ANXIETY Stop: 10/20/17 17:45 Ferrous Sulfate (Feosol -) 325 mg PO TIDCM [facility] Last Admin: 10/19/17 12:48 Dose: 325 mg Metoprolol Succinate (Toprol Xl -) 25 mg PO BID [facility] Last Admin: 10/19/17 09:45 Dose: 25 mg Ranitidine HCl (Zantac -) 150 mg PO BID [facility] Last Admin: 10/19/17 09:45 Dose: 150 mg Tramadol HCl (Ultram -) 50 mg PO Q6H PRN PRN Reason: PAIN LEVEL 6-10 Voriconazole (Vfend (Restricted To Id)) 200 mg PO BID [facility] Last Admin: 10/19/17 09:48 Dose: 200 mg - Objective Vital Signs: Vital Signs Temperature 97.9 F 10/19/17 10:54 Pulse Rate 90 10/19/17 10:54 Respiratory Rate 20 10/19/17 10:54 Blood Pressure 146/89 10/19/17 10:54 O2 Sat by Pulse Oximetry (%) 98 10/18/17 21:00 Constitutional: Yes: Calm Eyes: Yes: Conjunctiva Clear HENT: Yes: Atraumatic Neck: Yes: Supple Cardiovascular: Yes: S1, S2 Respiratory: Yes: CTA Bilaterally Gastrointestinal: Yes: Soft Genitourinary: Yes: WNL Musculoskeletal: Yes: WNL Edema: No Neurological: Yes: Oriented Psychiatric: Yes: Oriented Labs: CBC, BMP 10/19/17 07:00 10/19/17 07:00 INR, PTT INR 1.17 (0.82-1.09) H 10/17/17 12:36 Problem List - Problems (1) AML (acute myeloblastic leukemia) Code(s): C92.00 - ACUTE MYELOBLASTIC LEUKEMIA, NOT HAVING ACHIEVED REMISSION Qualifiers: Leukemia Active/Remission status: without remission Qualified Code(s): C92.00 - Acute myeloblastic leukemia, not having achieved remission (2) Anemia Code(s): D64.9 - ANEMIA, UNSPECIFIED Qualifiers: Anemia type: unspecified type Qualified Code(s): D64.9 - Anemia, unspecified (3) Hyponatremia Code(s): E87.1 - HYPO-OSMOLALITY AND HYPONATREMIA (4) HLD (hyperlipidemia) Code(s): E78.5 - HYPERLIPIDEMIA, UNSPECIFIED (5) HTN (hypertension) Code(s): I10 - ESSENTIAL (PRIMARY) HYPERTENSION Qualifiers: Hypertension type: essential hypertension Qualified Code(s): I10 - Essential (primary) hypertension Assessment/Plan Current Medications Generic Name Dose Route Start Last Admin Trade Name Freq PRN Reason Stop Dose Admin Acetaminophen 650 mg 10/17/17 17:45 Tylenol - PO Q6H PRN FEVER Allopurinol 200 mg 10/18/17 10:00 10/19/17 09:45 Zyloprim - PO 200 mg DAILY MABEL Administration Aspirin 81 mg 10/18/17 10:00 10/19/17 09:45 Ecotrin - PO 81 mg DAILY MABEL Administration Atorvastatin Calcium 20 mg 10/17/17 22:00 10/18/17 21:19 Lipitor - PO 20 mg HS MABEL Administration Diazepam 2 mg 10/17/17 17:45 Valium - PO 10/20/17 17:45 Q4H PRN ANXIETY Ferrous Sulfate 325 mg 10/18/17 08:00 10/19/17 12:48 Feosol - PO 325 mg TIDCM MABEL Administration Metoprolol Succinate 25 mg 10/17/17 22:00 10/19/17 09:45 Toprol Xl - PO 25 mg BID MABEL Administration Ranitidine HCl 150 mg 10/17/17 22:00 10/19/17 09:45 Zantac - PO 150 mg BID MABEL Administration Tramadol HCl 50 mg 10/17/17 17:45 Ultram - PO Q6H PRN PAIN LEVEL 6-10 Voriconazole 200 mg 10/18/17 10:00 10/19/17 09:48 Vfend (Restricted To Id) PO 200 mg BID MABEL Administration Laboratory Tests 10/18/17 10/18/17 10/19/17 17:10 17:10 07:00 Serum Osmolality Pending Urine Osmolality 413 D Ur Random Sodium 57 Impression 1. hyponatremia 2. anemia 3. leukopenia 4. hx lung cancer 5. hx melanoma 6. CAD 7. gout Plan - monitor serum sodium - discussed free water restriction - can be more liberal with salt - may need salt tabs if it does not improve - follow osms - will need outpt follow up - monitor hg - will follow Dr Bray
== END 2017-10-19 14:46 | disposition home or self-care (01) | DRG 835 ==
LOC: JER 11:02 → JERBED 14:17 → J5S 18:39
PROVIDERS: ADMIT Family Medicine; ATTEND Family Medicine
PROC: 30233H1 Transfusion of Nonautologous Whole Blood into Peripheral Vein, Percutaneous Approach (ICD-10-PCS; principal; 2017-10-17)
DX: C92.00 Acute myeloblastic leukemia, not having achieved remission (principal); I50.32 Chronic diastolic (congestive) heart failure; E87.1 Hypo-osmolality and hyponatremia; N17.9 Acute kidney failure, unspecified; I11.0 Hypertensive heart disease with heart failure; D63.0 Anemia in neoplastic disease; I25.10 Atherosclerotic heart disease of native coronary artery without angina pectoris; Z95.1 Presence of aortocoronary bypass graft; E78.5 Hyperlipidemia, unspecified; M10.9 Gout, unspecified; Z85.118 Personal history of other malignant neoplasm of bronchus and lung; Z66 Do not resuscitate; C43.9 Malignant melanoma of skin, unspecified; Z87.891 Personal history of nicotine dependence
CPT/HCPCS: 36415; 36430; 71045-TC-FY; 80048; 80053; 82272; 82436; 83615; 83930; 83935; 84133; 84300; 84550; 85025; 85027; 85610; 86850; 86900; 86901; 86922; 87040; 99285-25; J3465; P9038; P9058

== ENCOUNTER 2017-11-23 16:14 | Day surgery (SDC) | payer OTHER, MEDICARE ==
[2017-11-23] MEDS ORDERED: ACETAMINOPHEN 325 MG TABLET (FP) PO PRN (16:45)
[2017-11-23 18:19] LABS: HEMATOCRIT 19.8 % (35.4-49); HEMOGLOBIN 6.9 GM/dL (11.7-16.9); MCH 34.5 pg (25.7-33.7); MCHC 34.7 g/dl (32.0-35.9); MEAN CELL VOLUME 99.3 fl (80-96); MEAN PLT VOLUME 6.2 fl (7.5-11.1); PLATELET COUNT 198 K/MM3 (134-434); RDW 22.8 % (11.9-15.9)
[2017-11-23 18:44] LABS: WHITE BLOOD COUNT 3.5 K/mm3 (4.0-10.0)
[2017-11-23] MEDS ORDERED: amLODIPine BESYLATE 2.5 MG TABLET (FP) PO ONE (21:15)
[2017-11-23] MEDS ORDERED: traMADol HCL 50 MG TABLET PO ONE (23:54)
[2017-11-24] MEDS ORDERED: diazePAM 2 MG TABLET PO ONE (02:27)
[2017-11-24 10:54] LABS: HEMATOCRIT 27.8 % (35.4-49); HEMOGLOBIN 9.7 GM/dL (11.7-16.9); MCH 32.7 pg (25.7-33.7); MCHC 34.9 g/dl (32.0-35.9); MEAN CELL VOLUME 93.8 fl (80-96); MEAN PLT VOLUME 6.1 fl (7.5-11.1); PLATELET COUNT 179 K/MM3 (134-434); RBC 2.97 M/mm3 (4.00-5.60); RDW 21.9 % (11.9-15.9); WHITE BLOOD COUNT 2.9 K/mm3 (4.0-10.0)
[2017-11-24 11:08] LABS: ALBUMIN 3.4 g/dl (3.4-5.0); ANION GAP 9 (8-16); BLOOD UREA NITROGEN 24 mg/dL (7-18); CALCIUM 8.3 mg/dL (8.5-10.1); CHLORIDE 104 mmol/L (98-107); CO2 25 mmol/L (21-32); GLUCOSE,RANDOM 193 mg/dL (74-106); POTASSIUM 4.6 mmol/L (3.5-5.1); SODIUM 138 mmol/L (136-145)
[2017-11-24 11:12] LABS: ALK PHOS 128 U/L (45-117); BILIRUBIN,TOTAL 0.7 mg/dL (0.2-1.0); CREATININE 1.3 mg/dL (0.7-1.3); SGOT/AST 17 U/L (15-37); SGPT/ALT 12 U/L (12-78); TOT PROT 6.7 g/dl (6.4-8.2)
--- NOTE | 2017-11-24 12:17 | HP ---
Admitting History and Physical - Admission History of Present Illness: admitted with anemia - Past Medical History Cardiovascular: Yes: CAD, HTN, Hyperlipdemia Pulmonary: Yes: Cancer Renal/: Yes: Other (hyponatremia) Heme/Onc: Yes: Cancer (aml) Rheumatology: Yes: Gout - Past Surgical History Past Surgical History: Yes: CABG - Smoking History Smoking history: Unknown if ever smoked Have you smoked in the past 12 months: No If you are a former smoker, when did you quit?: 12 YRS - Alcohol/Substance Use Hx Alcohol Use: No - Social History History of Recent Travel: No Home Medications - Allergies Allergies/Adverse Reactions: Allergies Allergy/AdvReac Type Severity Reaction Status Date / Time No Known Allergies Allergy Verified 10/17/17 11:51 - Home Medications Home Medications: Ambulatory Orders Alprazolam [Xanax] 0.5 mg PO PRN 10/17/17 Atorvastatin Ca [Lipitor] 40 mg PO DAILY 10/17/17 Ergocalciferol (Vitamin D2) [Vitamin D2] 1.25 mg PO WEEKLY 10/17/17 Iron 325 mg PO BID 10/17/17 Levofloxacin 250 mg PO DAILY 10/17/17 Acetaminophen [Tylenol .Regular Strength -] 650 mg PO Q6H PRN tablet 10/19/17 Allopurinol [Zyloprim -] 200 mg PO DAILY tablet 10/19/17 Aspirin Coated [Ecotrin -] 81 mg PO DAILY tablet.ec 10/19/17 Diazepam [Valium] 2 mg PO Q4H PRN tablet [facility] 4 10/19/17 Metoprolol Succinate [Toprol XL -] 25 mg PO BID tab.sr.24h 10/19/17 Ranitidine [Zantac -] 150 mg PO BID tablet 10/19/17 Voriconazole [Vfend (Restricted To Id)] 200 mg PO BID tablet 10/19/17 traMADol HCL [Ultram -] 50 mg PO Q6H PRN tablet [facility] 4 10/19/17 Physical Examination Vital Signs: Vital Signs Temperature 98.5 F 11/23/17 21:50 Pulse Rate 94 H 11/24/17 07:09 Respiratory Rate 18 11/24/17 07:09 Blood Pressure 157/94 11/24/17 07:09 O2 Sat by Pulse Oximetry (%) Cardiovascular: Yes: S1, S2 Respiratory: Yes: Regular, CTA Bilaterally Gastrointestinal: Yes: Normal Bowel Sounds, Soft. No: Tenderness Edema: No Labs: CBC, BMP 11/24/17 10:20 11/24/17 10:20 Problem List - Problems (1) AML (acute myeloblastic leukemia) Assessment/Plan: -oncology Code(s): C92.00 - ACUTE MYELOBLASTIC LEUKEMIA, NOT HAVING ACHIEVED REMISSION Qualifiers: Leukemia Active/Remission status: without remission Qualified Code(s): C92.00 - Acute myeloblastic leukemia, not having achieved remission (2) Anemia Assessment/Plan: -s/p prbc -follow labs noted--9 Code(s): D64.9 - ANEMIA, UNSPECIFIED Qualifiers: Anemia type: unspecified type Qualified Code(s): D64.9 - Anemia, unspecified (3) HTN (hypertension) Assessment/Plan: -resume meds Code(s): I10 - ESSENTIAL (PRIMARY) HYPERTENSION Qualifiers: Hypertension type: essential hypertension Qualified Code(s): I10 - Essential (primary) hypertension
[2017-11-24] MEDS ORDERED: traMADol HCL 50 MG TABLET PO PRN (12:19)
[2017-11-24] MEDS ORDERED: ERGOCALCIFEROL 1.25 MG PO SCH (12:30)
[2017-11-24] MEDS ORDERED: metoPROLOL SUCCINATE 25 MG TAB.SR.24H (FP) PO SCH (12:30)
[2017-11-24 15:56] VITALS: BP 152/78; PULSE 87; TEMP 97.6
[2017-11-24] MEDS ORDERED: RANITIDINE HCL 150 MG TABLET (FP) PO SCH (22:00)
[2017-11-24] MEDS ORDERED: FERROUS SO4 325 MG TABLET (FP) PO SCH (22:00)
[2017-11-24] MEDS ORDERED: ATORVASTATIN CA 40 MG TABLET (FP) PO SCH (22:00)
[2017-11-25] MEDS ORDERED: ASPIRIN COATED 81 MG TABLET.EC PO SCH (10:00)
[2017-11-25] MEDS ORDERED: ALLOPURINOL 100 MG TABLET (FP) PO SCH (10:00)
== END 2017-11-24 17:00 | disposition home or self-care (01) ==
LOC: JONCBLOOD 16:14 → J7W 16:19 → JONCBLOOD 11-24 17:00
PROVIDERS: ATTEND Family Medicine
PROC: 30233N1 Transfusion of Nonautologous Red Blood Cells into Peripheral Vein, Percutaneous Approach (ICD-10-PCS; principal; 2017-11-23)
DX: D64.9 Anemia, unspecified (principal); E87.0 Hyperosmolality and hypernatremia; C92.00 Acute myeloblastic leukemia, not having achieved remission
CPT/HCPCS: 36415; 36430; 71045-TC-FY; 80053; 85027; 86850; 86900; 86901; 86922; P9038; P9058

== ENCOUNTER 2017-12-12 09:15 | Inpatient (IN) | payer OTHER, MEDICARE ==
[2017-12-12] MEDS ORDERED: SODIUM CHLORIDE 1,000 ML IV STA ×3 (09:51→19:02)
--- NOTE | 2017-12-12 09:51 | PDOC ---
History of Present Illness - General History Source: Patient Exam Limitations: No Limitations - History of Present Illness Initial Comments: 12/12/17 10:39 The patient is a 82 year old male, with a significant past medical history of lung CA (s/p nodules), melanoma, AML, triple bypass, and hypertension, who presents to the emergency department s/p multiple mechanical falls over the past 2 days. The patient reports associated weakness and shortness of breath, but denies any chest pain, diaphoresis, palpitations, or lower extremity edema. Today, patient reports nausea and one episode of nonbloody/nonbilious vomiting, but denies any abdominal pain, diarrhea, or constipation. He reports some dizziness, but denies any fever, chills, cough, headache, or lightheadedness. He denies any dysuria, hematuria, frequency, or urgency. He denies any recent travel or sick contacts. Allergies: NKDA Past Surgical History: Cardiac bypass Social History: Former smoker. No ETOH or recreational drug use. PCP: Dr. Negron <Leyla Donaldson - Last Filed: 12/12/17 19:19> - General History Source: Patient Exam Limitations: No Limitations <Melinda Lopez - Last Filed: 12/12/17 19:45> - General Chief Complaint: Injury Stated Complaint: FALL Past History <Leyla Donaldson - Last Filed: 12/12/17 19:19> - Past Medical History Cancer: Yes (LUNG S/P NODULE,MELANOMA,LEUKEMIA) Cardiac Disorders: Yes (BYPASS TRIPLE) COPD: No HTN: Yes - Surgical History Cardiac Surgery: Yes (bypass) - Suicide/Smoking/Psychosocial Hx Smoking History: Former smoker Have you smoked in the past 12 months: No If you are a former smoker, when did you quit?: 12 YRS Information on smoking cessation initiated: No Hx Alcohol Use: No Drug/Substance Use Hx: No Substance Use Type: None <Melinda Lopez - Last Filed: 12/12/17 19:45> - Past Medical History Allergies/Adverse Reactions: Allergies Allergy/AdvReac Type Severity Reaction Status Date / Time No Known Allergies Allergy Verified 12/12/17 09:50 Home Medications: Ambulatory Orders Alprazolam [Xanax] 0.5 mg PO PRN 10/17/17 Atorvastatin Ca [Lipitor] 40 mg PO DAILY 10/17/17 Iron 325 mg PO BID 10/17/17 Aspirin Coated [Ecotrin -] 81 mg PO DAILY tablet.ec 10/19/17 Ranitidine [Zantac -] 150 mg PO BID tablet 10/19/17 traMADol HCL [Ultram -] 50 mg PO Q6H PRN tablet [facility] 4 10/19/17 Allopurinol [Zyloprim -] 100 mg PO DAILY 12/12/17 Levofloxacin [Levaquin] 250 mg PO DAILY 12/12/17 Voriconazole [Vfend] 200 mg PO BID 12/12/17 Review of Systems - Review of Systems Able to Perform ROS?: Yes Comments:: 12/12/17 10:39 GENERAL/CONSTITUTIONAL: +Weakness. No fever or chills. HEAD, EYES, EARS, NOSE AND THROAT: No change in vision. No ear pain or discharge. No sore throat. CARDIOVASCULAR: No chest pain. RESPIRATORY: +Shortness of breath. No cough, wheezing, or hemoptysis. GASTROINTESTINAL: +Nausea, vomiting. No abdominal pain, diarrhea or constipation. GENITOURINARY: No dysuria, frequency, or change in urination. MUSCULOSKELETAL: No joint or muscle swelling or pain. No neck or back pain. SKIN: No rash NEUROLOGIC: +Dizziness. No headache, loss of consciousness, or change in strength/sensation. ENDOCRINE: No increased thirst. No abnormal weight change. HEMATOLOGIC/LYMPHATIC: No anemia, easy bleeding, or history of blood clots. ALLERGIC/IMMUNOLOGIC: No hives or skin allergy. <Leyla Donaldson - Last Filed: 12/12/17 19:19> *Physical Exam - Vital Signs Last Vital Signs Temp Pulse Resp BP Pulse Ox 100.7 F H 102 H 20 99/65 98 12/12/17 09:48 12/12/17 10:25 12/12/17 10:25 12/12/17 10:25 12/12/17 10:25 - Physical Exam Comments: 12/12/17 10:39 GENERAL: The patient is in no acute distress. Febrile HEAD: Normal with no signs of trauma. EYES: PERRLA, EOMI, sclera anicteric, conjunctiva clear. ENT: Dry mucous membranes. Ears normal, nares patent, oropharynx clear without exudates. NECK: Normal range of motion, supple without lymphadenopathy, JVD, or masses. LUNGS: Coarse breath sounds at the bases. Breath sounds equal. No wheezes, and no crackles. HEART: Tachycardic. 2/6 ejection murmur. Regular rhythm, no rub or gallop. ABDOMEN: Soft, nontender, normoactive bowel sounds. No guarding, no rebound. No masses palpable. EXTREMITIES: Normal range of motion, no edema. No clubbing or cyanosis. No erythema, or tenderness. NEUROLOGICAL: Cranial nerves II through XII grossly intact. Normal speech. No focal neurological deficits. MUSCULOSKELETAL: Back non-tender to palpation, no CVA tenderness SKIN: Warm, Dry, normal turgor, no rashes or lesions noted. <Donaldson,Giomilsy - Last Filed: 12/12/17 19:19> - Vital Signs Last Vital Signs Temp Pulse Resp BP Pulse Ox 100.7 F H 103 H 18 109/45 93 L 12/12/17 09:48 12/12/17 09:48 12/12/17 09:48 12/12/17 09:48 12/12/17 09:48 <Melinda Lopez - Last Filed: 12/12/17 19:45> ED Treatment Course - LABORATORY CBC & Chemistry Diagram: 12/12/17 10:18 12/12/17 16:16 - RADIOLOGY Radiograph Interpretation: 12/12/17 14:21 EXAM: Head CT INTERPRETED BY: Dr. Ryder REVIEWED BY: Dr. Lopez IMPRESSION: Moderate atrophy, ventricular dilatation and mild periventricular chronic microvascular ischemic disease changes without gross evidence of acute intracranial pathology. Postop changes in the nasal cavity and the right medial maxillary antrostomy as well as chronic sinusitis, as described. EXAM: Chest CT INTERPRETED BY: Dr. Ferris REVIEWED BY: Dr. Lopez IMPRESSION: No left basilar opacity is noted. The appearance of possible mildly increased left basilar opacity described on recently performed conventional radiography appears to have been artifactual in nature. There is mild subpleural reticulation within the right mid to lower chest posteriorly this finding is probably chronic in nature, less likely acute. Mild discoid atelectasis/linear parenchymal scarring is noted within the lingula and right basilar region. There is minimal to mild right basilar bronchiectasis medially. A 1 cm right middle lobe pulmonary nodule is noted as well as adjacent 0.3 cm and 0.2 cm nodules. Comparison with previous CT studies would be helpful if available from a different facility. If prior studies are not available 2 - 3 month follow-up CT is suggested to evaluate stability. Alternatively additional evaluation utilizing PET/CT may be considered. Cardiomegaly. Status post median sternotomy with CABG. The main pulmonary artery appears slightly prominent which may be due to increased pulmonary arterial pressure. EXAM: CXR INTERPRETED BY: Dr. Ferris REVIEWED BY: Dr. Lopez IMPRESSION: Shallow inspiration. Cardiomegaly. Left lower lung zone obscured by the cardiac silhouette. No evidence of CHF, or pneumothorax. No airspace opacities are seen in the left upper lung zone, right lung. - Medications Given in the ED: ED Medications Discontinued Medications Generic Name Dose Route Start Last Admin Trade Name Freq PRN Reason Stop Dose Admin Acetaminophen 1,000 mg 12/12/17 10:15 12/12/17 10:18 Ofirmev Injection - IVPB 12/12/17 10:16 1,000 mg ONCE ONE Administration <Leyla Donaldson - Last Filed: 12/12/17 19:19> - LABORATORY CBC & Chemistry Diagram: 12/12/17 10:18 12/12/17 16:16 <Melinda Lopez - Last Filed: 12/12/17 19:45> Medical Decision Making - Medical Decision Making 12/12/17 14:[address] Negron at 14:25. Case discussed with Dr. Pierre at 19:18. 12/12/17 19:19 <Leyla Donaldson - Last Filed: 12/12/17 19:19> - Medical Decision Making 12/12/17 10:23 Mr Solorzano is an 82 yo M h/o lung CA (s/p nodules), melanoma, AML, triple bypass , and HTN who presents to the emergency department s/p fall from standing Pt states that he has had multiple falls He can not tell me how many times he has fallen He states he sometimes gets dizzy but he does not fall due to dizziness No chest pain He has noted shortness of breath He did not realize that he has a fever, no body aches No abdominal pain, s/p 1 episode of emesis No diarrhea No dysuria On examination Awake, alert, answers questions appropriately Tachycardiac, subtle murmur Coarse breath sounds bases No abdominal tenderness or distention No guarding or rebound Dry mucous membranes DD: Fever due to - pneumonia, UTI, viral syndrome Weakness due to - fever, dehydration, ACS, arrythmia Will do: Labs UA IV hydration (given low blood pressure) Tylenol CXR Head CT re assess Anticipate admission 12/12/17 10:27 EKG: Sinus tachycardia rate of 104 bpm, LAD, LVH, LBBB (on old ekg) 12/12/17 11:37 Laboratory Tests 11/24/17 11/24/17 12/12/17 10:20 10:20 10:18 WBC 2.9 L 10.2 H D Hgb 9.7 L D 9.5 L Hct 27.8 L D 28.2 L Plt Count 179 334 D VBG pH POC VBG pCO2 POC VBG pO2 Mixed VBG HCO3 Sodium 138 Potassium 4.6 Chloride 104 Carbon Dioxide 25 D BUN 24 H D Creatinine 1.3 Random Glucose 193 H D AST ALT 12/12/17 12/12/17 10:18 10:40 WBC Hgb Hct Plt Count VBG pH 7.34 POC VBG pCO2 46.7 POC VBG pO2 13.8 L* Mixed VBG HCO3 24.3 Sodium 135 L Potassium 4.7 Chloride 99 Carbon Dioxide 25 BUN 29 H D Creatinine 2.0 H D Random Glucose 101 D AST 11 L D ALT 12 Labs reveal Acute renal insufficiency Elevated WBC Hgb stable 12/12/17 12:12 Laboratory Tests 12/12/17 10:40 Troponin I 0.[address] chest: no infiltrate CT head: 12/12/17 12:24 Lactate 3.7 An additional Liter of NS No evidence of CHF at this point 12/12/17 14:27 UA pending I have reviewed this case with pt PMD He would like this patient admitted to tele Would like DNR paperwork signed I have reviewed this paperwork with the patient Requests NO chest compressions Paperwork signed by patient 12/12/17 16:10 Re assessed Pt noted to have more difficulty breathing, is tachypneic, is tachycardiac Pt has voided on himself in the bed HR 120s BP 145/87 Will: Repeat BMP, BNP, Will repeat CXR 12/12/17 19:[address] Pierre. Agrees with Kathie Almaraz for now Case reviewed with Overnight [employer]ED [employer]ELOPER Recommends adding Clindamycin (Pt CT with chronic sinusitis??) Clinical Impression: fever unknown origin, initial presentation Renal insufficiency, initial presentation <Melinda Lopez - Last Filed: 12/12/17 19:45> *DC/Admit/Observation/Transfer - Attestations Scribe Attestion: 12/12/17 10:40 Documentation prepared by Leyla Donaldson, acting as medical office receptionist assistant for Melinda Lopez MD. <Leyla Donaldson - Last Filed: 12/12/17 19:19> - Discharge Dispostion Decision to Admit order: Yes <Melinda Lopez - Last Filed: 12/12/17 19:45> Diagnosis at time of Disposition: Acute kidney injury Fever Qualifiers: Fever type: due to other condition Qualified Code(s): R50.81 - Fever presenting with conditions classified elsewhere - Discharge Dispostion Condition at time of disposition: Stable
[2017-12-12] MEDS ORDERED: ACETAMINOPHEN INJECTION 100 ML IVPB ONE ×2 (10:15→19:22)
[2017-12-12] MEDS ORDERED: ACETAMINOPHEN 1000 MG/100 ML VIAL (NON FORMULARY) IVPB ONE ×2 (10:15→19:23)
[2017-12-12 10:41] VITALS: BMI 29.0
[2017-12-12 10:53] LABS: VENOUS PC02 46.7 mmHg (38-52); VENOUS PH 7.34 (7.32-7.42); VENOUS PO2 13.8 mmHg (28-48)
[2017-12-12 11:04] LABS: BASO % 0.4 % (0-2.0); HEMATOCRIT 28.2 % (35.4-49); HEMOGLOBIN 9.5 GM/dL (11.7-16.9); LYMPH % 34.5 % (8-40); MCH 32.3 pg (25.7-33.7); MCHC 33.7 g/dl (32.0-35.9); MEAN CELL VOLUME 95.9 fl (80-96); MEAN PLT VOLUME 5.9 fl (7.5-11.1); MONO % 62.1 % (3.8-10.2); PLATELET COUNT 334 K/MM3 (134-434); RBC 2.94 M/mm3 (4.00-5.60); RDW 23.7 % (11.9-15.9); WHITE BLOOD COUNT 10.2 K/mm3 (4.0-10.0)
[2017-12-12 11:23] LABS: ALBUMIN 3.4 g/dl (3.4-5.0); ALK PHOS 128 U/L (45-117); ANION GAP 11 (8-16); BILIRUBIN,TOTAL 0.4 mg/dL (0.2-1.0); BLOOD UREA NITROGEN 29 mg/dL (7-18); CALCIUM 8.2 mg/dL (8.5-10.1); CHLORIDE 99 mmol/L (98-107); CO2 25 mmol/L (21-32); GLUCOSE,RANDOM 101 mg/dL (74-106); POTASSIUM 4.7 mmol/L (3.5-5.1); SGOT/AST 11 U/L (15-37); SGPT/ALT 12 U/L (12-78); SODIUM 135 mmol/L (136-145); TOT PROT 7.3 g/dl (6.4-8.2)
[2017-12-12 11:54] LABS: INR 1.19 (0.82-1.09); PROTHROMBIN TIME (PATIENT) 13.5 SEC (9.7-13.0)
[2017-12-12 11:57] LABS: ACTIVATED PTT 25.9 SECONDS (26.9-34.4)
[2017-12-12 14:14] LABS: URINE APPEARANCE SLCLOUDY; URINE BILIRUBIN NEGATIVE (<2.0 mg/dL); URINE BLOOD NEGATIVE (NEGATIVE); URINE COLOR YELLOW; URINE GLUCOSE (UA) NEGATIVE (NEGATIVE); URINE KETONE NEGATIVE (NEGATIVE); URINE LEUK ESTERASE NEGATIVE (NEGATIVE); URINE NITRITE NEGATIVE (NEGATIVE); URINE UROBILINOGEN NEGATIVE mg/dL (0.2-1.0)
[2017-12-12 14:33] LABS: ANISOCYTOSIS 2+; MACROCYTOSIS 1+; PLATELET ESTIMATE NORMAL; TEAR DROP CELLS 1+
[2017-12-12 14:52] LABS: URINE PROTEIN 1+ (NEGATIVE)
[2017-12-12 14:54] LABS: GRANULAR CASTS 5 /lpf; URINE HYALINE CAST 9 /lpf; URINE MUCUS RARE
[2017-12-12] MEDS ORDERED: FUROSEMIDE 40 MG/4 ML INJECTABLE VIAL IVPUSH ONE (16:09)
[2017-12-12] MEDS ORDERED: FUROSEMIDE 40 MG/4 ML INJECTABLE VIAL ONE (16:28)
[2017-12-12] MEDS ORDERED: traMADol HCL 50 MG TABLET PO PRN (16:30)
[2017-12-12] MEDS ORDERED: ACETAMINOPHEN 325 MG TABLET (FP) PO ONE (16:31)
[2017-12-12] MEDS ORDERED: ACETAMINOPHEN 325 MG TABLET (FP) ONE (16:35)
[2017-12-12 17:13] LABS: ANION GAP 11 (8-16); BLOOD UREA NITROGEN 30 mg/dL (7-18); CALCIUM 7.6 mg/dL (8.5-10.1); CHLORIDE 102 mmol/L (98-107); CO2 22 mmol/L (21-32); CREATININE 2.1 mg/dL (0.7-1.3); GLUCOSE,RANDOM 95 mg/dL (74-106); POTASSIUM 4.4 mmol/L (3.5-5.1); SODIUM 135 mmol/L (136-145)
[2017-12-12] MEDS ORDERED: VORICONAZOLE 200 MG TABLET (RESTRICTED TO ID) PO ONE (17:45)
[2017-12-12] MEDS ORDERED: VANCOMYCIN 1,000 MG in DEXTROSE 5%-WATER - 250 ML IVPB ONE (19:03)
[2017-12-12] MEDS ORDERED: PIPERACILLIN/TAZOB 3.375 GM 3.375 GM in DEXTROSE 5%-WATER - 50 ML IVPB ONE (19:03)
[2017-12-12] MEDS ORDERED: PIPERACILLIN/TAZOB 3.375 GM 3.375 GM/50 ML BAG IVPB ONE (19:23)
[2017-12-12] MEDS ORDERED: VANCOMYCIN 1 GRAM (PRE-DOCKED) 1,000 MG/250 ML BAG IVPB ONE (19:23)
[2017-12-12] MEDS ORDERED: CLINDAMYCIN IVPB 300 MG in DEXTROSE 5%-WATER - 48 ML IVPB ONE (19:41)
--- NOTE | 2017-12-12 21:30 | PN ---
Progress Note (short form) - Note Progress Note: Pt seen and examined in the ER. Admitted with SOB, fevers at home and stated multiple falls. Patient with h/o AML, is not receiving any treatment Patient appears in distress, SOB+, not able to talk in full sentences ROS is limited by pts condition O/E: General: IN distress HEENT: NCAT Cor: tachy Lungs : Poor inspi effort ABd: Soft LE: no CCE Last Vital Signs Temp Pulse Resp BP Pulse Ox 103.1 F H 113 H 22 153/57 98 12/12/17 19:20 12/12/17 19:20 12/12/17 19:20 12/12/17 19:20 12/12/17 19:20 CBC, BMP 12/12/17 10:18 12/12/17 16:16 Current Medications Generic Name Dose Route Start Last Admin Trade Name Freq PRN Reason Stop Dose Admin Allopurinol 200 mg 12/13/17 10:00 Zyloprim - PO DAILY MABEL Alprazolam 0.5 mg 12/12/17 16:30 Xanax - PO TID PRN ANXIETY Aspirin 81 mg 12/13/17 10:00 Ecotrin - PO DAILY MABEL Atorvastatin Calcium 40 mg 12/12/17 22:00 Lipitor - PO HS MABEL Ferrous Sulfate 325 mg 12/12/17 22:00 Feosol - PO BID MABEL Sodium Chloride 1,000 mls @ 75 mls/hr 12/12/17 19:02 12/12/17 19:42 Normal Saline - IV 12/13/17 08:21 75 mls/hr ASDIR STA Administration Ranitidine HCl 150 mg 12/12/17 22:00 Zantac - PO BID MABEL Tramadol HCl 50 mg 12/12/17 16:30 Ultram - PO Q6H PRN PAIN LEVEL 6-10 Voriconazole 200 mg 12/12/17 22:00 Vfend (Restricted To Id) PO BID MABEL AML-- on no treatment, on periodic PRBCs Now admitted with Severe sepsis ?source ?Lung NUBIA CBC- at baseline. -broad spectrum abx -r/o TLS, IVF, to c/w allopurinol -disease progression cannot be ruled out -ID c/s -consider renal consult. -Overall prognosis guarded. -DNR as per the ER documentation
[2017-12-12] MEDS ORDERED: VORICONAZOLE 200 MG TABLET (RESTRICTED TO ID) PO SCH (22:00)
[2017-12-12] MEDS: FERROUS SO4 325 MG TABLET (FP) PO SCH (23:18)
[2017-12-12] MEDS: ATORVASTATIN CA 40 MG TABLET (FP) PO SCH (23:18)
[2017-12-12] MEDS: RANITIDINE HCL 150 MG TABLET (FP) PO SCH (23:18)
[2017-12-13] MEDS ORDERED: PIPERACILLIN/TAZOB 3.375 GM 3.375 GM/50 ML BAG IVPB ONE (02:18)
[2017-12-13] MEDS: PIPERACILLIN/TAZOB 3.375 GM 3.375 GM in DEXTROSE 5%-WATER - 50 ML IVPB SCH ×2 (02:23→09:49)
[2017-12-13 07:12] LABS: BASO % 0.1 % (0-2.0); EOS % 0.2 % (0-4.5); HEMATOCRIT 22.8 % (35.4-49); HEMOGLOBIN 7.8 GM/dL (11.7-16.9); LYMPH % 37.6 % (8-40); MCH 32.7 pg (25.7-33.7); MCHC 34.1 g/dl (32.0-35.9); MEAN CELL VOLUME 95.9 fl (80-96); MEAN PLT VOLUME 5.9 fl (7.5-11.1); MONO % 58.5 % (3.8-10.2); NEUT % 3.6 % (42.8-82.8); PLATELET COUNT 228 K/MM3 (134-434); RBC 2.38 M/mm3 (4.00-5.60); RDW 24.3 % (11.9-15.9); WHITE BLOOD COUNT 10.8 K/mm3 (4.0-10.0)
[2017-12-13 07:46] LABS: ALBUMIN 2.5 g/dl (3.4-5.0); ANION GAP 10 (8-16); BILIRUBIN,TOTAL 0.3 mg/dL (0.2-1.0); BLOOD UREA NITROGEN 39 mg/dL (7-18); CALCIUM 7.2 mg/dL (8.5-10.1); CHLORIDE 104 mmol/L (98-107); CO2 22 mmol/L (21-32); CREATININE 2.6 mg/dL (0.7-1.3); GLUCOSE,RANDOM 91 mg/dL (74-106); LDH 266 U/L (87-241); POTASSIUM 4.6 mmol/L (3.5-5.1); SGOT/AST 25 U/L (15-37); SODIUM 136 mmol/L (136-145); URIC ACID 5.6 mg/dL (2.6-7.2)
[2017-12-13 07:49] LABS: ALK PHOS 91 U/L (45-117); TOT PROT 5.5 g/dl (6.4-8.2)
--- NOTE | 2017-12-13 07:56 | HP ---
Admitting History and Physical - Admission History of Present Illness: 82 year old male, with a significant past medical history of lung CA (s/p nodules), melanoma, AML, triple bypass, and hypertension, who presents to the emergency department s/p multiple mechanical falls over the past 2 days. The patient reports associated weakness and shortness of breath, but denies any chest pain, diaphoresis, palpitations, or lower extremity edema. patient reports nausea and one episode of nonbloody/nonbilious vomiting, but denies any abdominal pain, diarrhea, or constipation. He reports some dizziness and thinks he passed out twice, but denies any fever, chills, cough, headache, or lightheadedness. He denies any dysuria, hematuria, frequency, or urgency. He denies any recent travel or sick contacts. - Past Medical History Cardiovascular: Yes: CAD, HTN, Hyperlipdemia Pulmonary: Yes: Cancer Renal/: Yes: Other (hyponatremia) Heme/Onc: Yes: Cancer (aml) Rheumatology: Yes: Gout - Past Surgical History Past Surgical History: Yes: CABG - Smoking History Smoking history: Former smoker Have you smoked in the past 12 months: No If you are a former smoker, when did you quit?: 12 YRS - Alcohol/Substance Use Hx Alcohol Use: No - Social History History of Recent Travel: No Home Medications - Allergies Allergies/Adverse Reactions: Allergies Allergy/AdvReac Type Severity Reaction Status Date / Time No Known Allergies Allergy Verified 12/12/17 09:50 - Home Medications Home Medications: Ambulatory Orders Alprazolam [Xanax] 0.5 mg PO PRN 10/17/17 Atorvastatin Ca [Lipitor] 40 mg PO DAILY 10/17/17 Iron 325 mg PO BID 10/17/17 Aspirin Coated [Ecotrin -] 81 mg PO DAILY tablet.ec 10/19/17 Ranitidine [Zantac -] 150 mg PO BID tablet 10/19/17 traMADol HCL [Ultram -] 50 mg PO Q6H PRN tablet MDD 4 10/19/17 Allopurinol [Zyloprim -] 100 mg PO DAILY 12/12/17 Levofloxacin [Levaquin] 250 mg PO DAILY 12/12/17 Voriconazole [Vfend] 200 mg PO BID 12/12/17 Review of Systems - Review of Systems Cardiovascular: reports: Shortness of Breath. denies: Chest Pain, Edema Respiratory: reports: SOB, SOB on Exertion Gastrointestinal: denies: Abdominal Pain Genitourinary: reports: No Symptoms Neurological: reports: Syncope, Weakness Physical Examination Vital Signs: Vital Signs Temperature 97.8 F 12/13/17 01:09 Pulse Rate 60 12/13/17 06:50 Respiratory Rate 18 12/13/17 06:50 Blood Pressure 110/47 12/13/17 06:50 O2 Sat by Pulse Oximetry (%) 96 12/13/17 06:50 Cardiovascular: Yes: S1, S2 Respiratory: Yes: On Nasal O2, Rales Gastrointestinal: Yes: Normal Bowel Sounds, Soft. No: Tenderness Edema: No Neurological: Yes: Alert, Oriented, Weakness Imaging - Results Cat Scan: Report Reviewed Problem List - Problems (1) Sepsis Assessment/Plan: --Cultures done --IV Abx --Id consult Code(s): A41.9 - SEPSIS, UNSPECIFIED ORGANISM (2) Acute kidney injury Assessment/Plan: -IVF -Follow Labs -Renal consult Code(s): N17.9 - ACUTE KIDNEY FAILURE, UNSPECIFIED (3) AML (acute myeloblastic leukemia) Assessment/Plan: -oncology consult Code(s): C92.00 - ACUTE MYELOBLASTIC LEUKEMIA, NOT HAVING ACHIEVED REMISSION Qualifiers: Leukemia Active/Remission status: without remission Qualified Code(s): C92.00 - Acute myeloblastic leukemia, not having achieved remission (4) Anemia Assessment/Plan: -Transfuse -GI consult _Follow Labs Code(s): D64.9 - ANEMIA, UNSPECIFIED Qualifiers: Anemia type: unspecified type Qualified Code(s): D64.9 - Anemia, unspecified (5) Hx of CABG Code(s): Z95.1 - PRESENCE OF AORTOCORONARY BYPASS GRAFT (6) Syncope Assessment/Plan: -W/U in progress -cardio consult -transfuse -Follow Labs Code(s): R55 - SYNCOPE AND COLLAPSE Qualifiers: Syncope type: unspecified Qualified Code(s): R55 - Syncope and collapse
[2017-12-13 08:01] LABS: SGPT/ALT 12 U/L (12-78)
--- NOTE | 2017-12-13 09:00 | PN ---
Progress Note, Physician Chief Complaint: well known from prior admissions and office. 82 year old male, with a significant past medical history of lung CA (s/p nodules), melanoma, AML, triple bypass, and hypertension, who presents to the emergency department s/p multiple mechanical falls over the past 2 days. The patient reports associated weakness and shortness of breath, but denies any chest pain, diaphoresis, palpitations, or lower extremity edema. patient reports nausea and one episode of nonbloody/nonbilious vomiting, but denies any abdominal pain, diarrhea, or constipation. He reports some dizziness and thinks he passed out twice, but denies any fever, chills, cough, headache, or lightheadedness. He denies any dysuria, hematuria, frequency, or urgency. He denies any recent travel or sick contacts. Of note, patient has known intermittent high grade AV block -- refused PPM. History of Present Illness: Noted to be febrile in ER, cultured. Abx started - Current Medication List Current Medications: Active Medications Allopurinol (Zyloprim -) 200 mg PO DAILY [facility] Alprazolam (Xanax -) 0.5 mg PO TID PRN PRN Reason: ANXIETY Aspirin (Ecotrin -) 81 mg PO DAILY [facility] Atorvastatin Calcium (Lipitor -) 40 mg PO HS [facility] Last Admin: 12/12/17 23:18 Dose: 40 mg Ferrous Sulfate (Feosol -) 325 mg PO BID [facility] Last Admin: 12/12/17 23:18 Dose: 325 mg Piperacillin Sod/Tazobactam (Sod 3.375 gm/ Dextrose) 50 mls @ 100 mls/hr IVPB Q8H-IV [facility] Last Admin: 12/13/17 02:23 Dose: 100 mls/hr Ranitidine HCl (Zantac -) 150 mg PO BID [facility] Last Admin: 12/12/17 23:18 Dose: 150 mg Tramadol HCl (Ultram -) 50 mg PO Q6H PRN PRN Reason: PAIN LEVEL 6-10 Voriconazole (Vfend (Restricted To Id)) 200 mg PO BID [facility] - Objective Vital Signs: Vital Signs Temperature 98.0 F 12/13/17 08:15 Pulse Rate 90 12/13/17 08:15 Respiratory Rate 16 12/13/17 08:15 Blood Pressure 104/54 12/13/17 08:15 O2 Sat by Pulse Oximetry (%) 100 12/13/17 08:15 Constitutional: Yes: No Distress, Calm Cardiovascular: Yes: Regular Rate and Rhythm Respiratory: Yes: Rhonchi Gastrointestinal: Yes: Soft, Abdomen, Obese Edema: Yes Edema: LLE: 2+, RLE: 2+ Neurological: Yes: Alert Labs: CBC, BMP 12/13/17 06:39 12/13/17 06:39 INR, PTT INR 1.19 (0.82-1.09) H 12/12/17 10:40 Microbiology Laboratory Tests 12/12/17 12/13/17 12/13/17 10:40 06:39 06:39 WBC 10.8 H Hgb 7.8 L D Plt Count 228 D Sodium 136 Potassium 4.6 BUN 39 H D Creatinine 2.6 H D Troponin I 0.04 D - ....Imaging Cat Scan: Report Reviewed, Image Reviewed EKG: Report Reviewed, Image Reviewed Assessment/Plan IMP: AML-- on no treatment, on periodic PRBCs CAD s/p CABG, chronic angina 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 Cultures, abx as per PMD 2. Hold all AV harjeet agents 3. DNR/DNI Thank you
--- NOTE | 2017-12-13 09:38 | CONSULT ---
Consultation: REQUESTING PROVIDER: CONSULT REQUEST: We have been asked to medically evaluate this patient for fever. HISTORY OF PRESENT ILLNESS: 82M with PMH of Lung cancer, Melanoma, AML (declines treatment), triple bypass, htn, presented to hospital after multiple mechanical falls over the past 2 days and sob. Pt reports (+)LOC, but unclear about mechanism of falls or events preceding falls. Pt reports associated weakness. Pt endorses feeling "lousy," but denies pain anywhere. Breathing is improved on 2L oxygen via nasal cannula. Pt reports similar episode of falling 6 months ago 2/2 Leukemia "acting up." Pt denies sick contacts, chest pain, palpitations, cough, lightheadedness, abdominal pain, chills. Pt presents with fever, Tmax 103.1 at 7pm last evening. REVIEW OF SYSTEMS: CONSTITUTIONAL: fever, chills, generalized weakness Absent: diaphoresis HEENT: Absent: rhinorrhea, nasal congestion, ear pain, eye pain, visual changes CARDIOVASCULAR: syncope Absent: chest pain, palpitations, irregular heart rate, lightheadedness, peripheral edema RESPIRATORY: sob Absent: cough, orthopnea, wheezing, stridor GASTROINTESTINAL: Absent: abdominal pain, abdominal distension, nausea, vomiting, diarrhea, constipation GENITOURINARY: Absent: dysuria, frequency, hematuria MUSCULOSKELETAL: Absent: myalgia, arthralgia, joint swelling, back pain, neck pain SKIN: Absent: rash, itching, pallor NEUROLOGIC: Absent: headache, focal weakness or paresthesias PSYCHIATRIC: Absent: anxiety, depression PHYSICAL EXAMINATION Vital Signs - 24 hr 12/12/17 12/12/17 12/12/17 09:48 10:25 11:30 Temperature 100.7 F H Pulse Rate 103 H Pulse Rate [ 102 H 86 Apical] Respiratory 18 20 22 Rate Blood Pressure 109/45 Blood Pressure 99/65 94/46 [Left Arm] O2 Sat by Pulse 93 L 98 100 Oximetry (%) 12/12/17 12/12/17 12/12/17 11:54 14:38 16:40 Temperature 98.9 F 98.8 F 102.8 F H Pulse Rate Pulse Rate [ 89 89 128 H Apical] Respiratory 20 20 28 H Rate Blood Pressure Blood Pressure 120/64 123/53 137/52 [Left Arm] O2 Sat by Pulse 98 100 97 Oximetry (%) 12/12/17 12/13/17 12/13/17 19:20 01:09 06:50 Temperature 103.1 F H 97.8 F Pulse Rate Pulse Rate [ 113 H 89 60 Apical] Respiratory 22 19 18 Rate Blood Pressure Blood Pressure 153/57 110/68 110/47 [Left Arm] O2 Sat by Pulse 98 96 Oximetry (%) 12/13/17 08:15 Temperature 98.0 F Pulse Rate Pulse Rate [ 90 Apical] Respiratory 16 Rate Blood Pressure Blood Pressure 104/54 [Left Arm] O2 Sat by Pulse 100 Oximetry (%) GENERAL: Awake, alert, and fully oriented, in no acute distress. HEAD: Normal with no signs of trauma. EYES: Pupils equal, round and reactive to light, extraocular movements intact, sclera anicteric, conjunctiva clear. No lid lag. EARS, NOSE, THROAT: Dry mucous membranes. LUNGS: Breath sounds equal, clear to auscultation bilaterally. No wheezes, and no crackles. No accessory muscle use. HEART: Regular rate and rhythm, normal S1 and S2 without murmur, rub or gallop. ABDOMEN: Soft, nontender, not distended, no guarding. LOWER EXTREMITIES: Warm, well-perfused. No calf tenderness. No peripheral edema. PSYCHIATRIC: Cooperative. Good eye contact. Appropriate mood and affect. Laboratory Results - last 24 hr 12/12/17 12/12/17 12/12/17 10:18 10:18 10:40 WBC 10.2 H D RBC 2.94 L Hgb 9.5 L Hct 28.2 L MCV 95.9 MCH 32.3 MCHC 33.7 RDW 23.7 H Plt Count 334 D MPV 5.9 L Neutrophils % 3.0 L Neutrophils % (Manual) 2.0 L Band Neutrophils % 0.0 Lymphocytes % 34.5 D Lymphocytes % (Manual) 26.7 D Monocytes % 62.1 H D Monocytes % (Manual) 45 H D Eosinophils % 0.0 D Eosinophils % (Manual) 0.0 D Basophils % 0.4 Basophils % (Manual) 0.0 Myelocytes % (Man) 0 Promyelocytes % (Man) 0 Blast Cells % (Manual) 27 H D Nucleated RBC % 0 Metamyelocytes 0 Platelet Estimate Normal Polychromasia 1+ Anisocytosis 2+ Microcytosis 1+ Macrocytosis 1+ Tear Drop Cells 1+ PT with INR 13.50 H INR 1.19 H PTT (Actin FS) 25.9 L VBG pH 7.34 POC VBG pCO2 46.7 POC VBG pO2 13.8 L* Mixed VBG HCO3 24.3 Sodium Potassium Chloride Carbon Dioxide Anion Gap BUN Creatinine Creat Clearance w eGFR Random Glucose Lactic Acid Uric Acid Calcium Total Bilirubin AST ALT Alkaline Phosphatase LD Total Troponin I B-Natriuretic Peptide Total Protein Albumin Urine Color Urine Appearance Urine pH Ur Specific Spiro Urine Protein Urine Glucose (UA) Urine Ketones Urine Blood Urine Nitrite Urine Bilirubin Urine Urobilinogen Ur Leukocyte Esterase Urine WBC (Auto) Urine RBC (Auto) Hyaline Casts Granular Casts Urine Mucus Crossmatch 12/12/17 12/12/17 12/12/17 10:40 10:40 10:40 WBC RBC Hgb Hct MCV MCH MCHC RDW Plt Count MPV Neutrophils % Neutrophils % (Manual) Band Neutrophils % Lymphocytes % Lymphocytes % (Manual) Monocytes % Monocytes % (Manual) Eosinophils % Eosinophils % (Manual) Basophils % Basophils % (Manual) Myelocytes % (Man) Promyelocytes % (Man) Blast Cells % (Manual) Nucleated RBC % Metamyelocytes Platelet Estimate Polychromasia Anisocytosis Microcytosis Macrocytosis Tear Drop Cells PT with INR INR PTT (Actin FS) VBG pH POC VBG pCO2 POC VBG pO2 Mixed VBG HCO3 Sodium 135 L Potassium 4.7 Chloride 99 Carbon Dioxide 25 Anion Gap 11 BUN 29 H D Creatinine 2.0 H D Creat Clearance w eGFR 32.07 Random Glucose 101 D Lactic Acid 3.7 H* Uric Acid Calcium 8.2 L Total Bilirubin 0.4 D AST 11 L D ALT 12 Alkaline Phosphatase 128 H LD Total Troponin I 0.04 D B-Natriuretic Peptide Total Protein 7.3 Albumin 3.4 Urine Color Urine Appearance Urine pH Ur Specific Spiro Urine Protein Urine Glucose (UA) Urine Ketones Urine Blood Urine Nitrite Urine Bilirubin Urine Urobilinogen Ur Leukocyte Esterase Urine WBC (Auto) Urine RBC (Auto) Hyaline Casts Granular Casts Urine Mucus Crossmatch 12/12/17 12/12/17 12/12/17 13:40 13:40 16:16 WBC RBC Hgb Hct MCV MCH MCHC RDW Plt Count MPV Neutrophils % Neutrophils % (Manual) Band Neutrophils % Lymphocytes % Lymphocytes % (Manual) Monocytes % Monocytes % (Manual) Eosinophils % Eosinophils % (Manual) Basophils % Basophils % (Manual) Myelocytes % (Man) Promyelocytes % (Man) Blast Cells % (Manual) Nucleated RBC % Metamyelocytes Platelet Estimate Polychromasia Anisocytosis Microcytosis Macrocytosis Tear Drop Cells PT with INR INR PTT (Actin FS) VBG pH POC VBG pCO2 POC VBG pO2 Mixed VBG HCO3 Sodium Potassium Chloride Carbon Dioxide Anion Gap BUN Creatinine Creat Clearance w eGFR Random Glucose Lactic Acid 1.8 Uric Acid Calcium Total Bilirubin AST ALT Alkaline Phosphatase LD Total Troponin I B-Natriuretic Peptide 46415.27 H Total Protein Albumin Urine Color Yellow Urine Appearance Slcloudy Urine pH 5.0 D Ur Specific Spiro 1.010 Urine Protein 1+ H Urine Glucose (UA) Negative Urine Ketones Negative Urine Blood Negative Urine Nitrite Negative Urine Bilirubin Negative Urine Urobilinogen Negative Ur Leukocyte Esterase Negative Urine WBC (Auto) 2 Urine RBC (Auto) <1 Hyaline Casts 9 Granular Casts 5 Urine Mucus Rare Crossmatch 12/12/17 12/13/17 12/13/17 16:16 06:39 06:39 WBC 10.8 H RBC 2.38 L Hgb 7.8 L D Hct 22.8 L D MCV 95.9 MCH 32.7 MCHC 34.1 RDW 24.3 H Plt Count 228 D MPV 5.9 L Neutrophils % 3.6 L Neutrophils % (Manual) Band Neutrophils % Lymphocytes % 37.6 Lymphocytes % (Manual) Monocytes % 58.5 H Monocytes % (Manual) Eosinophils % 0.2 D Eosinophils % (Manual) Basophils % 0.1 Basophils % (Manual) Myelocytes % (Man) Promyelocytes % (Man) Blast Cells % (Manual) Nucleated RBC % 0 Metamyelocytes Platelet Estimate Polychromasia Anisocytosis Microcytosis Macrocytosis Tear Drop Cells PT with INR INR PTT (Actin FS) VBG pH POC VBG pCO2 POC VBG pO2 Mixed VBG HCO3 Sodium 135 L 136 Potassium 4.4 4.6 Chloride 102 104 Carbon Dioxide 22 22 Anion Gap 11 10 BUN 30 H 39 H D Creatinine 2.1 H 2.6 H D Creat Clearance w eGFR 23.69 Random Glucose 95 91 Lactic Acid Uric Acid 5.6 D Calcium 7.6 L 7.2 L Total Bilirubin 0.3 D AST 25 D ALT 12 Alkaline Phosphatase 91 D LD Total 266 H Troponin I B-Natriuretic Peptide Total Protein 5.5 L D Albumin 2.5 L D Urine Color Urine Appearance Urine pH Ur Specific Spiro Urine Protein Urine Glucose (UA) Urine Ketones Urine Blood Urine Nitrite Urine Bilirubin Urine Urobilinogen Ur Leukocyte Esterase Urine WBC (Auto) Urine RBC (Auto) Hyaline Casts Granular Casts Urine Mucus Crossmatch 12/13/17 09:10 WBC RBC Hgb Hct MCV MCH MCHC RDW Plt Count MPV Neutrophils % Neutrophils % (Manual) Band Neutrophils % Lymphocytes % Lymphocytes % (Manual) Monocytes % Monocytes % (Manual) Eosinophils % Eosinophils % (Manual) Basophils % Basophils % (Manual) Myelocytes % (Man) Promyelocytes % (Man) Blast Cells % (Manual) Nucleated RBC % Metamyelocytes Platelet Estimate Polychromasia Anisocytosis Microcytosis Macrocytosis Tear Drop Cells PT with INR INR PTT (Actin FS) VBG pH POC VBG pCO2 POC VBG pO2 Mixed VBG HCO3 Sodium Potassium Chloride Carbon Dioxide Anion Gap BUN Creatinine Creat Clearance w eGFR Random Glucose Lactic Acid Uric Acid Calcium Total Bilirubin AST ALT Alkaline Phosphatase LD Total Troponin I B-Natriuretic Peptide Total Protein Albumin Urine Color Urine Appearance Urine pH Ur Specific Spiro Urine Protein Urine Glucose (UA) Urine Ketones Urine Blood Urine Nitrite Urine Bilirubin Urine Urobilinogen Ur Leukocyte Esterase Urine WBC (Auto) Urine RBC (Auto) Hyaline Casts Granular Casts Urine Mucus Crossmatch See Detail Active Medications Generic Name Dose Route Start Last Admin Trade Name Freq PRN Reason Stop Dose Admin Allopurinol 200 mg 12/13/17 10:00 Zyloprim - PO DAILY [facility] Alprazolam 0.5 mg 12/12/17 16:30 Xanax - PO TID PRN ANXIETY Aspirin 81 mg 12/13/17 10:00 Ecotrin - PO DAILY [facility] Atorvastatin Calcium 40 mg 12/12/17 22:00 12/12/17 23:18 Lipitor - PO 40 mg HS [facility] Administration Ferrous Sulfate 325 mg 12/12/17 22:00 12/12/17 23:18 Feosol - PO 325 mg BID [facility] Administration Piperacillin Sod/Tazobactam 50 mls @ 100 mls/hr 12/13/17 02:15 12/13/17 02:23 Sod 3.375 gm/ Dextrose IVPB 100 mls/hr Q8H-IV [facility] Administration Ranitidine HCl 150 mg 12/12/17 22:00 12/12/17 23:18 Zantac - PO 150 mg BID [facility] Administration Tramadol HCl 50 mg 12/12/17 16:30 Ultram - PO Q6H PRN PAIN LEVEL 6-10 Voriconazole 200 mg 12/12/17 22:00 Vfend (Restricted To Id) PO BID [facility] ASSESSMENT/PLAN: 82M with PMH of Lung cancer, Melanoma, AML (declines treatment), triple bypass, htn, presented to hospital after multiple mechanical falls over the past 2 days and sob. # neutrapenic fever - possible sepsis related to acute AML - IV Cefepime. (Received Vancomycin, Zosyn, and Clindamycin in the ER) - f/u random Vanc level tomorrow morning - blood culture (-) x 24 hrs - urine culture (-) - Influenza A&B (-) - CXR -> no airspace opacities - Chest CT -> lung nodule to Right middle lobe, no acute pathology - Head CT -> chronic microvascular changes, no acute intracranial path - Ab/Pel CT -> cholelithiasis sans cholecystitis, chronic ara perirenal soft tissue stranding, small amount of free fluid in Left percolic space. - Tylenol prn for fever, pt has been afebrile so far today - ANC 324 - Heme/Onc recs appreciated Plan discussed with Dr. Falcon. Dispo: We will continue to follow the patient. Thank you for this consultative opportunity. Visit type - Emergency Visit Emergency Visit: Yes ED Registration Date: 12/12/17 Care time: The patient presented to the Emergency Department on the above date and was hospitalized for further evaluation of their emergent condition. - New Patient This patient is new to me today: Yes Date on this admission: 12/13/17 - Critical Care Critical Care patient: No
[2017-12-13] MEDS: RANITIDINE HCL 150 MG TABLET (FP) PO SCH ×2 (09:49→22:28)
[2017-12-13] MEDS: ASPIRIN COATED 81 MG TABLET.EC PO SCH (09:50)
[2017-12-13] MEDS: FERROUS SO4 325 MG TABLET (FP) PO SCH ×2 (09:50→22:28)
[2017-12-13] MEDS: ALLOPURINOL 100 MG TABLET (FP) PO SCH (09:51)
[2017-12-13] MEDS ORDERED: CEFEPIME HCL/D5W 1 GM/50 ML BAG IVPB SCH (12:00)
--- NOTE | 2017-12-13 14:07 | PN ---
Teaching Attending Note Name of Resident: Huyen Hudson ATTENDING PHYSICIAN STATEMENT I saw and evaluated the patient. I reviewed the resident's note and discussed the case with the resident. I agree with the resident's findings and plan as documented. SUBJECTIVE: No focal complaint High grade fever noted Appears slightly dyspneic at rest on nasal cannula OBJECTIVE: Tmax 103 cor S1S2 Lungs clear Abdo soft, non tender + LE edema R>L ASSESSMENT AND PLAN: Neutropenic fever AML Lactic acidosis Azotemia Empiric cefepime/ vancomycin, adjusted for azotemia
[2017-12-13] MEDS ORDERED: VANCOMYCIN 1,000 MG in DEXTROSE 5%-WATER - 250 ML IVPB ONE (14:13)
--- NOTE | 2017-12-13 14:24 | CON.GI ---
Consult Consult Specialty:: GI Reason for Consultation:: anemia - History of Present Illness History of Present Illness: chart reviewed. ID, hematology evaluation noted. As per initial intake: The patient is a 82 year old male, with a significant past medical history of lung CA (s/p nodules), melanoma, AML, triple bypass, and hypertension, who presents to the emergency department s/p multiple mechanical falls over the past 2 days. The patient reports associated weakness and shortness of breath, but denies any chest pain, diaphoresis, palpitations, or lower extremity edema. Today, patient reports nausea and one episode of nonbloody/nonbilious vomiting, but denies any abdominal pain, diarrhea, or constipation. He reports some dizziness, but denies any fever, chills, cough, headache, or lightheadedness. He denies any dysuria, hematuria, frequency, or urgency. He denies any recent travel or sick contacts. Admitted for multiple falls, rule out sepsis. GI called for anemia. AML. Not on treatment. Chronic, normocytic, normochromic anemia ranging 6-9 g/dl for at least one year, per electronic records. At the time of this encountered the patient appears to be in mild distress, mild shortness of breath, pale, awake, alert, oriented. Denies dysphagia, odynophagia, jaundice, nausea, vomiting, hematochezia, hematemesis, diarrhea. Takes iron, other medications and reports black stools all the time. His sister at the bedside, corroborates the above. - History Source History Provided By: Patient, Family Member, Medical Record - Past Medical History Cardio/Vascular: Yes: CAD, HTN, Hyperlipdemia Pulmonary: Yes: Cancer Renal/: Yes: Other (hyponatremia) Rheumatology: Yes: Gout - Past Surgical History Past Surgical History: Yes: CABG - Alcohol/Substance Use Hx Alcohol Use: No - Smoking History Smoking history: Former smoker Have you smoked in the past 12 months: No If you are a former smoker, when did you quit?: 12 YRS - Social History History of Recent Travel: No Home Medications - Allergies Allergies/Adverse Reactions: Allergies Allergy/AdvReac Type Severity Reaction Status Date / Time No Known Allergies Allergy Verified 12/12/17 09:50 - Home Medications Home Medications: Ambulatory Orders Alprazolam [Xanax] 0.5 mg PO PRN 10/17/17 Atorvastatin Ca [Lipitor] 40 mg PO DAILY 10/17/17 Iron 325 mg PO BID 10/17/17 Aspirin Coated [Ecotrin -] 81 mg PO DAILY tablet.ec 10/19/17 Ranitidine [Zantac -] 150 mg PO BID tablet 10/19/17 traMADol HCL [Ultram -] 50 mg PO Q6H PRN tablet MDD 4 10/19/17 Allopurinol [Zyloprim -] 100 mg PO DAILY 12/12/17 Levofloxacin [Levaquin] 250 mg PO DAILY 12/12/17 Voriconazole [Vfend] 200 mg PO BID 12/12/17 Family Disease History - Family Disease History Family History: Unremarkable Review of Systems Findings/Remarks: As per H&P and HPI Physical Exam-GI Vital Signs: Vital Signs Temperature 97.8 F 12/13/17 13:34 Pulse Rate 97 H 12/13/17 13:34 Respiratory Rate 20 12/13/17 14:02 Blood Pressure 124/69 12/13/17 13:34 O2 Sat by Pulse Oximetry (%) 100 12/13/17 14:02 Constitutional: Yes: Calm, Mild Distress, Pallor Eyes: Yes: Conjunctiva Clear HENT: Yes: Atraumatic Neck: Yes: Supple Cardiovascular: Yes: Regular Rate and Rhythm Respiratory: Yes: Regular Gastrointestinal Inspection: Yes: Distention. No: Ascites ...Auscultate: Yes: Normoactive Bowel Sounds ...Palpate: Yes: Soft. No: Firm/Rigid, Guarding, Tenderness, Epigastium, Tenderness, Rebound ...Rectal Exam: Yes: Guaiac Negative Neurological: Yes: Alert, Oriented Labs: CBC, BMP 12/13/17 06:39 12/13/17 06:39 INR, PTT INR 1.19 (0.82-1.09) H 12/12/17 10:40 Laboratory Last Values WBC 10.8 K/mm3 (4.0-10.0) H 12/13/17 06:39 RBC 2.38 M/mm3 (4.00-5.60) L 12/13/17 06:39 Hgb 7.8 GM/dL (11.7-16.9) L D 12/13/17 06:39 Hct 22.8 % (35.4-49) L D 12/13/17 06:39 MCV 95.9 fl (80-96) 12/13/17 06:39 MCH 32.7 pg (25.7-33.7) 12/13/17 06:39 MCHC 34.1 g/dl (32.0-35.9) 12/13/17 06:39 RDW 24.3 % (11.9-15.9) H 12/13/17 06:39 Plt Count 228 K/MM3 (134-434) D 12/13/17 06:39 MPV 5.9 fl (7.5-11.1) L 12/13/17 06:39 Neutrophils % 3.6 % (42.8-82.8) L 12/13/17 06:39 Neutrophils % (Manual) 2.0 % (42.8-82.8) L 12/12/17 10:18 Band Neutrophils % 0.0 % 12/12/17 10:18 Lymphocytes % 37.6 % (8-40) 12/13/17 06:39 Lymphocytes % (Manual) 26.7 % (8-40) D 12/12/17 10:18 Monocytes % 58.5 % (3.8-10.2) H 12/13/17 06:39 Monocytes % (Manual) 45 % (3.8-10.2) H D 12/12/17 10:18 Eosinophils % 0.2 % (0-4.5) D 12/13/17 06:39 Eosinophils % (Manual) 0.0 % (0-4.5) D 12/12/17 10:18 Basophils % 0.1 % (0-2.0) 12/13/17 06:39 Basophils % (Manual) 0.0 % (0-2.0) 12/12/17 10:18 Myelocytes % (Man) 0 % (0-2) 12/12/17 10:18 Promyelocytes % (Man) 0 % (0-2) 12/12/17 10:18 Blast Cells % (Manual) 27 % (0-0) H D 12/12/17 10:18 Nucleated RBC % 0 % (0-0) 12/13/17 06:39 Metamyelocytes 0 % (0-2) 12/12/17 10:18 Platelet Estimate Normal 12/12/17 10:18 Polychromasia 1+ 12/12/17 10:18 Anisocytosis 2+ 12/12/17 10:18 Microcytosis 1+ 12/12/17 10:18 Macrocytosis 1+ 12/12/17 10:18 Tear Drop Cells 1+ 12/12/17 10:18 PT with INR 13.50 SEC (9.7-13.0) H 12/12/17 10:40 INR 1.19 (0.82-1.09) H 12/12/17 10:40 PTT (Actin FS) 25.9 SECONDS (26.9-34.4) L 12/12/17 10:40 VBG pH 7.34 (7.32-7.42) 12/12/17 10:18 POC VBG pCO2 46.7 mmHg (38-52) 12/12/17 10:18 POC VBG pO2 13.8 mmHg (28-48) L* 12/12/17 10:18 Mixed VBG HCO3 24.3 meq/L (19-25) 12/12/17 10:18 Sodium 136 mmol/L (136-145) 12/13/17 06:39 Potassium 4.6 mmol/L (3.5-5.1) 12/13/17 06:39 Chloride 104 mmol/L (98-107) 12/13/17 06:39 Carbon Dioxide 22 mmol/L (21-32) 12/13/17 06:39 Anion Gap 10 (8-16) 12/13/17 06:39 BUN 39 mg/dL (7-18) H D 12/13/17 06:39 Creatinine 2.6 mg/dL (0.7-1.3) H D 12/13/17 06:39 Creat Clearance w eGFR 23.69 (>60) 12/13/17 06:39 Random Glucose 91 mg/dL (74-106) 12/13/17 06:39 Lactic Acid 1.8 mmol/L (0.0-2.0) 12/12/17 13:40 Uric Acid 5.6 mg/dL (2.6-7.2) D 12/13/17 06:39 Calcium 7.2 mg/dL (8.5-10.1) L 12/13/17 06:39 Total Bilirubin 0.3 mg/dL (0.2-1.0) D 12/13/17 06:39 AST 25 U/L (15-37) D 12/13/17 06:39 ALT 12 U/L (12-78) 12/13/17 06:39 Alkaline Phosphatase 91 U/L (45-117) D 12/13/17 06:39 LD Total 266 U/L (87-241) H 12/13/17 06:39 Troponin I 0.04 ng/ml (0.00-0.05) D 12/12/17 10:40 B-Natriuretic Peptide 91081.27 pg/ml (5-450) H 12/12/17 16:16 Total Protein 5.5 g/dl (6.4-8.2) L D 12/13/17 06:39 Albumin 2.5 g/dl (3.4-5.0) L D 12/13/17 06:39 Urine Color Yellow 12/12/17 13:40 Urine Appearance Slcloudy 12/12/17 13:40 Urine pH 5.0 (5.0-8.0) D 12/12/17 13:40 Ur Specific Allgood 1.010 (1.001-1.035) 12/12/17 13:40 Urine Protein 1+ (NEGATIVE) H 12/12/17 13:40 Urine Glucose (UA) Negative (NEGATIVE) 12/12/17 13:40 Urine Ketones Negative (NEGATIVE) 12/12/17 13:40 Urine Blood Negative (NEGATIVE) 12/12/17 13:40 Urine Nitrite Negative (NEGATIVE) 12/12/17 13:40 Urine Bilirubin Negative (<2.0 mg/dL) 12/12/17 13:40 Urine Urobilinogen Negative mg/dL (0.2-1.0) 12/12/17 13:40 Ur Leukocyte Esterase Negative (NEGATIVE) 12/12/17 13:40 Urine WBC (Auto) 2 /hpf (3-5) 12/12/17 13:40 Urine RBC (Auto) <1 /hpf (0-3) 12/12/17 13:40 Hyaline Casts 9 /lpf 12/12/17 13:40 Granular Casts 5 /lpf 12/12/17 13:40 Urine Mucus Rare 12/12/17 13:40 Blood Type A POSITIVE 12/13/17 09:10 Antibody Screen Negative 12/13/17 09:10 Crossmatch See Detail 12/13/17 09:10 Imaging - Results Cat Scan: Report Reviewed Problem List - Problems (1) AML (acute myeloblastic leukemia) Code(s): C92.00 - ACUTE MYELOBLASTIC LEUKEMIA, NOT HAVING ACHIEVED REMISSION Qualifiers: Leukemia Active/Remission status: without remission Qualified Code(s): C92.00 - Acute myeloblastic leukemia, not having achieved remission (2) Anemia Code(s): D64.9 - ANEMIA, UNSPECIFIED Qualifiers: Anemia type: unspecified type Qualified Code(s): D64.9 - Anemia, unspecified Assessment/Plan an 82-year-old gentleman with the above history and chronic normocytic, normochromic anemia without stigmata of recent, or active gastrointestinal blood loss. The anemia is most likely related to untreated AML. Continue current care as per ID, hematology. As discussed with the patient and his sister, no GI intervention planned at this time. We will follow closely and observe for signs and symptoms of gastrointestinal blood loss.
[2017-12-13 14:36] LABS: ANISOCYTOSIS 1+; MACROCYTOSIS 1+
--- NOTE | 2017-12-13 15:47 | CONSULT ---
Consult Consult Specialty:: Nephrology Reason for Consultation:: NUBIA - History of Present Illness Chief Complaint: mechanical fall History of Present Illness: Pt is an 82 year old male with pmhx of hyponatremia, Lung cancer, melanoma, AML , CABG and HTN who presents to the ER after having several falls. He also complains of weakness and shortness of breath. He denies chest pain or palpitations. He was found to have elevated creatinine and I was called to evaluate him. He denies dysuria or hematuria. He denies nsaid use. He did have an episode of vomiting. - History Source History Provided By: Patient - Past Medical History Cardio/Vascular: Yes: CAD, HTN, Hyperlipdemia Pulmonary: Yes: Cancer Renal/: Yes: Other (hyponatremia) Rheumatology: Yes: Gout - Past Surgical History Past Surgical History: Yes: CABG - Alcohol/Substance Use Hx Alcohol Use: No - Smoking History Smoking history: Former smoker Have you smoked in the past 12 months: No If you are a former smoker, when did you quit?: 12 YRS - Social History History of Recent Travel: No Home Medications - Allergies Allergies/Adverse Reactions: Allergies Allergy/AdvReac Type Severity Reaction Status Date / Time No Known Allergies Allergy Verified 12/12/17 09:50 - Home Medications Home Medications: Ambulatory Orders Alprazolam [Xanax] 0.5 mg PO PRN 10/17/17 Atorvastatin Ca [Lipitor] 40 mg PO DAILY 10/17/17 Iron 325 mg PO BID 10/17/17 Aspirin Coated [Ecotrin -] 81 mg PO DAILY tablet.ec 10/19/17 Ranitidine [Zantac -] 150 mg PO BID tablet 10/19/17 traMADol HCL [Ultram -] 50 mg PO Q6H PRN tablet MDD 4 10/19/17 Allopurinol [Zyloprim -] 100 mg PO DAILY 12/12/17 Levofloxacin [Levaquin] 250 mg PO DAILY 12/12/17 Voriconazole [Vfend] 200 mg PO BID 12/12/17 Family Disease History - Family Disease History Family History: Denies Review of Systems - Review of Systems Constitutional: reports: Loss of Appetite, Malaise, Weakness Eyes: reports: No Symptoms HENT: reports: No Symptoms Neck: reports: No Symptoms Cardiovascular: reports: No Symptoms Respiratory: reports: SOB on Exertion Gastrointestinal: reports: Vomiting Genitourinary: reports: No Symptoms Musculoskeletal: reports: No Symptoms Neurological: reports: No Symptoms Endocrine: reports: No Symptoms Hematology/Lymphatic: reports: No Symptoms Psychiatric: reports: No Symptoms Physical Exam Vital Signs: Vital Signs Temperature 99.3 F 12/13/17 14:00 Pulse Rate 91 H 12/13/17 14:00 Respiratory Rate 20 12/13/17 14:02 Blood Pressure 101/51 12/13/17 14:00 O2 Sat by Pulse Oximetry (%) 100 12/13/17 14:02 Constitutional: Yes: Calm Eyes: Yes: Conjunctiva Clear HENT: Yes: Atraumatic Neck: Yes: Supple Cardiovascular: Yes: S1, S2 Respiratory: Yes: CTA Bilaterally Gastrointestinal: Yes: Soft Renal/: Yes: WNL Extremities: Yes: WNL Edema: No Neurological: Yes: Oriented Psychiatric: Yes: Oriented Labs: CBC, BMP 12/13/17 06:39 12/13/17 06:39 Laboratory Tests 10/18/17 10/19/17 11/24/17 07:25 07:00 10:20 WBC Hgb Plt Count Sodium Potassium BUN Creatinine 1.1 1.2 1.3 Lactic Acid 12/12/17 12/12/17 12/12/17 10:18 10:40 10:40 WBC 10.2 H D Hgb 9.5 L Plt Count 334 D Sodium Potassium BUN Creatinine 2.0 H D Lactic Acid 3.7 H* 12/12/17 12/12/17 12/13/17 13:40 16:16 06:39 WBC Hgb Plt Count Sodium 136 Potassium 4.6 BUN 30 H Creatinine 2.1 H 2.6 H D Lactic Acid 1.8 12/13/17 06:39 WBC 10.8 H Hgb 7.8 L D Plt Count 228 D Sodium Potassium BUN Creatinine Lactic Acid Imaging - Results Chest X-ray: Report Reviewed Problem List - Problems (1) Acute kidney injury Code(s): N17.9 - ACUTE KIDNEY FAILURE, UNSPECIFIED (2) Anemia Code(s): D64.9 - ANEMIA, UNSPECIFIED Qualifiers: Anemia type: unspecified type Qualified Code(s): D64.9 - Anemia, unspecified Assessment/Plan Current Medications Generic Name Dose Route Start Last Admin Trade Name Freq PRN Reason Stop Dose Admin Allopurinol 200 mg 12/13/17 10:00 12/13/17 09:51 Zyloprim - PO 200 mg DAILY MABEL Administration Alprazolam 0.5 mg 12/12/17 16:30 Xanax - PO TID PRN ANXIETY Aspirin 81 mg 12/13/17 10:00 12/13/17 09:50 Ecotrin - PO 81 mg DAILY MABEL Administration Atorvastatin Calcium 40 mg 12/12/17 22:00 12/12/17 23:18 Lipitor - PO 40 mg HS MABEL Administration Ferrous Sulfate 325 mg 12/12/17 22:00 12/13/17 09:50 Feosol - PO 325 mg BID MABEL Administration Cefepime HCl 1 gm in 50 mls @ 100 mls/hr 12/13/17 22:00 Maxipime 1 Gm Premix Ivpb IVPB BID [facility] Protocol Ranitidine HCl 150 mg 12/12/17 22:00 12/13/17 09:49 Zantac - PO 150 mg BID MABEL Administration Tramadol HCl 50 mg 12/12/17 16:30 Ultram - PO Q6H PRN PAIN LEVEL 6-10 Voriconazole 200 mg 12/12/17 22:00 Vfend (Restricted To Id) PO BID [facility] Impression 1. history of hyponatremia 2. anemia 3. leukopenia 4. hx lung cancer 5. hx melanoma 6. CAD 7. gout 8. fever 9. NUBIA 10. neutropenic fever Plan - check ua and lytes - check renal ultrasound - gentle hydration - abx per ID - will comment more on etiology of NUBIA after reviewing data - renal dose all meds - will follow Dr Bray
[2017-12-13] MEDS ORDERED: SODIUM CHLORIDE 1,000 ML IV SCH (16:30)
--- NOTE | 2017-12-13 22:00 | PN ---
Progress Note (short form) - Note Progress Note: Flow cytometry sent , peripheral blood
[2017-12-13] MEDS: CEFEPIME HCL/D5W 1 GM/50 ML BAG IVPB SCH (22:27)
[2017-12-13] MEDS: ALPRAZolam 0.25 MG TABLET PO PRN (22:28)
[2017-12-13] MEDS: ATORVASTATIN CA 40 MG TABLET (FP) PO SCH (22:28)
--- NOTE | 2017-12-14 07:38 | PN ---
Progress Note, Physician - Current Medication List Current Medications: Active Medications Allopurinol (Zyloprim -) 200 mg PO DAILY [facility] Last Admin: 12/13/17 09:51 Dose: 200 mg Alprazolam (Xanax -) 0.5 mg PO TID PRN PRN Reason: ANXIETY Last Admin: 12/13/17 22:28 Dose: 0.5 mg Aspirin (Ecotrin -) 81 mg PO DAILY [facility] Last Admin: 12/13/17 09:50 Dose: 81 mg Atorvastatin Calcium (Lipitor -) 40 mg PO HS [facility] Last Admin: 12/13/17 22:28 Dose: 40 mg Ferrous Sulfate (Feosol -) 325 mg PO BID [facility] Last Admin: 12/13/17 22:28 Dose: 325 mg Cefepime HCl (Maxipime 1 Gm Premix Ivpb) 1 gm in 50 mls @ 100 mls/hr IVPB BID [facility]; Protocol Last Admin: 12/13/17 22:27 Dose: 100 mls/hr Sodium Chloride (Normal Saline -) 1,000 mls @ 42 mls/hr IV ASDIR [facility] Last Admin: 12/13/17 17:17 Dose: 42 mls/hr Ranitidine HCl (Zantac -) 150 mg PO BID [facility] Last Admin: 12/13/17 22:28 Dose: 150 mg Tramadol HCl (Ultram -) 50 mg PO Q6H PRN PRN Reason: PAIN LEVEL 6-10 Voriconazole (Vfend (Restricted To Id)) 200 mg PO BID [facility] - Objective Vital Signs: Vital Signs Temperature 99.9 F H 12/14/17 02:00 Pulse Rate 93 H 12/14/17 06:00 Respiratory Rate 20 12/14/17 06:00 Blood Pressure 128/52 12/14/17 06:00 O2 Sat by Pulse Oximetry (%) 100 12/13/17 20:00 Cardiovascular: Yes: S1, S2 Respiratory: Yes: Regular, CTA Bilaterally Gastrointestinal: Yes: Normal Bowel Sounds, Soft Labs: CBC, BMP 12/13/17 06:39 INR, PTT INR 1.19 (0.82-1.09) H 12/12/17 10:40 Problem List - Problems (1) Sepsis Assessment/Plan: --Cultures done --IV Abx --Id consult Code(s): A41.9 - SEPSIS, UNSPECIFIED ORGANISM (2) Acute kidney injury Assessment/Plan: -IVF -Follow Labs -Renal consult Code(s): N17.9 - ACUTE KIDNEY FAILURE, UNSPECIFIED (3) AML (acute myeloblastic leukemia) Assessment/Plan: -oncology consult Code(s): C92.00 - ACUTE MYELOBLASTIC LEUKEMIA, NOT HAVING ACHIEVED REMISSION Qualifiers: Leukemia Active/Remission status: without remission Qualified Code(s): C92.00 - Acute myeloblastic leukemia, not having achieved remission (4) Anemia Assessment/Plan: -Transfuse-not done yesterday??-d/w nursing -GI consult noted -hem on board _Follow Labs Code(s): D64.9 - ANEMIA, UNSPECIFIED Qualifiers: Anemia type: unspecified type Qualified Code(s): D64.9 - Anemia, unspecified (5) Hx of CABG Code(s): Z95.1 - PRESENCE OF AORTOCORONARY BYPASS GRAFT (6) Syncope Assessment/Plan: -W/U in progress -cardio consult -transfuse -Follow Labs Code(s): R55 - SYNCOPE AND COLLAPSE Qualifiers: Syncope type: unspecified Qualified Code(s): R55 - Syncope and collapse
[2017-12-14 07:56] LABS: HEMATOCRIT 20.6 % (35.4-49); MCH 32.6 pg (25.7-33.7); MCHC 33.8 g/dl (32.0-35.9); MEAN CELL VOLUME 96.4 fl (80-96); MEAN PLT VOLUME 6.4 fl (7.5-11.1); PLATELET COUNT 243 K/MM3 (134-434); RBC 2.14 M/mm3 (4.00-5.60); RDW 24.3 % (11.9-15.9); WHITE BLOOD COUNT 5.7 K/mm3 (4.0-10.0)
[2017-12-14 08:09] LABS: CHLORIDE 106 mmol/L (98-107); POTASSIUM 3.7 mmol/L (3.5-5.1); SODIUM 138 mmol/L (136-145)
[2017-12-14 08:25] LABS: ALBUMIN 2.4 g/dl (3.4-5.0); ALK PHOS 85 U/L (45-117); ANION GAP 12 (8-16); BILIRUBIN,TOTAL 0.4 mg/dL (0.2-1.0); BLOOD UREA NITROGEN 38 mg/dL (7-18); CALCIUM 7.4 mg/dL (8.5-10.1); CO2 20 mmol/L (21-32); CREATININE 1.9 mg/dL (0.7-1.3); GLUCOSE,RANDOM 70 mg/dL (74-106); SGOT/AST 28 U/L (15-37); SGPT/ALT 15 U/L (12-78); TOT PROT 5.7 g/dl (6.4-8.2)
--- NOTE | 2017-12-14 08:44 | PN ---
Progress Note, Physician Chief Complaint: TELE: NSR, IVCD, APCs - Current Medication List Current Medications: Active Medications Allopurinol (Zyloprim -) 200 mg PO DAILY [facility] Last Admin: 12/13/17 09:51 Dose: 200 mg Alprazolam (Xanax -) 0.5 mg PO TID PRN PRN Reason: ANXIETY Last Admin: 12/13/17 22:28 Dose: 0.5 mg Aspirin (Ecotrin -) 81 mg PO DAILY [facility] Last Admin: 12/13/17 09:50 Dose: 81 mg Atorvastatin Calcium (Lipitor -) 40 mg PO HS [facility] Last Admin: 12/13/17 22:28 Dose: 40 mg Ferrous Sulfate (Feosol -) 325 mg PO BID [facility] Last Admin: 12/13/17 22:28 Dose: 325 mg Cefepime HCl (Maxipime 1 Gm Premix Ivpb) 1 gm in 50 mls @ 100 mls/hr IVPB BID [facility]; Protocol Last Admin: 12/13/17 22:27 Dose: 100 mls/hr Sodium Chloride (Normal Saline -) 1,000 mls @ 42 mls/hr IV ASDIR [facility] Last Admin: 12/13/17 17:17 Dose: 42 mls/hr Ranitidine HCl (Zantac -) 150 mg PO BID [facility] Last Admin: 12/13/17 22:28 Dose: 150 mg Tramadol HCl (Ultram -) 50 mg PO Q6H PRN PRN Reason: PAIN LEVEL 6-10 Voriconazole (Vfend (Restricted To Id)) 200 mg PO BID [facility] - Objective Vital Signs: Vital Signs Temperature 99.9 F H 12/14/17 02:00 Pulse Rate 93 H 12/14/17 06:00 Respiratory Rate 20 12/14/17 06:00 Blood Pressure 128/52 12/14/17 06:00 O2 Sat by Pulse Oximetry (%) 100 12/13/17 20:00 Constitutional: Yes: Calm Cardiovascular: Yes: Regular Rate and Rhythm Respiratory: Yes: Rhonchi Gastrointestinal: Yes: Soft, Abdomen, Obese Edema: Yes Edema: LLE: 1+, RLE: 1+ Neurological: Yes: Alert Labs: CBC, BMP 12/14/17 07:30 12/14/17 06:26 INR, PTT INR 1.19 (0.82-1.09) H 12/12/17 10:40 Microbiology 12/12/17 12:01 Blood - Peripheral Venous Blood Culture - Preliminary NO GROWTH OBTAINED AFTER 24 HOURS, INCUBATION TO CONTINUE FOR 4 DAYS. Laboratory Tests 12/14/17 12/14/17 06:26 07:30 WBC 5.7 D Hgb 7.0 L D Plt Count 243 Sodium 138 Potassium 3.7 BUN 38 H Creatinine 1.9 H D Laboratory Tests 12/14/17 12/14/17 06:26 07:30 WBC 5.7 D Hgb 7.0 L D Plt Count 243 Sodium 138 Potassium 3.7 BUN 38 H Creatinine 1.9 H D - ....Imaging EKG: Image Reviewed Assessment/Plan IMP: AML-- on no treatment, on periodic PRBCs CAD s/p CABG, chronic angina 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 Cultures, abx as per PMD 2. Hold all AV harjeet agents 3. DNR/DNI: d/c TELE
[2017-12-14] MEDS: FERROUS SO4 325 MG TABLET (FP) PO SCH ×2 (09:21→21:50)
[2017-12-14] MEDS: ASPIRIN COATED 81 MG TABLET.EC PO SCH (09:21)
[2017-12-14] MEDS: CEFEPIME HCL/D5W 1 GM/50 ML BAG IVPB SCH ×2 (09:21→21:51)
[2017-12-14] MEDS: ALLOPURINOL 100 MG TABLET (FP) PO SCH (09:22)
[2017-12-14] MEDS: RANITIDINE HCL 150 MG TABLET (FP) PO SCH ×2 (09:22→21:50)
[2017-12-14] MEDS: ACETAMINOPHEN 325 MG TABLET (FP) PO PRN ×2 (09:53→17:06)
[2017-12-14] MEDS ORDERED: CEFEPIME HCL/D5W 1 GM/50 ML BAG IVPB SCH (10:00)
[2017-12-14 10:22] LABS: URINE APPEARANCE SLCLOUDY; URINE BILIRUBIN NEGATIVE (<2.0 mg/dL); URINE BLOOD 1+ (NEGATIVE); URINE COLOR YELLOW; URINE GLUCOSE (UA) NEGATIVE (NEGATIVE); URINE KETONE TRACE (NEGATIVE); URINE LEUK ESTERASE NEGATIVE (NEGATIVE); URINE NITRITE NEGATIVE (NEGATIVE); URINE UROBILINOGEN NEGATIVE mg/dL (0.2-1.0)
--- NOTE | 2017-12-14 10:32 | PN ---
Physical Exam: SUBJECTIVE: Patient seen and examined. Tmax 99.9 at 2am noted. Pt endorses some persist sob. Pt reports tolerating diet. Last bowel movement yesterday. Denies nausea, vomiting, chest pain, abdominal pain. OBJECTIVE: Vital Signs Period Temp Pulse Resp BP Sys/Alvares Pulse Ox Last 24 Hr 97.8 F-99.9 F 91-98 20-26 101-139/51-69 100-100 GENERAL: Awake, alert, and fully oriented, in no acute distress. HEAD: Normal with no signs of trauma. LUNGS: scattered rales. HEART: Regular rate and rhythm, normal S1 and S2 without murmur, rub or gallop. ABDOMEN: Soft, nontender, not distended, no guarding. LOWER EXTREMITIES: Warm, well-perfused. No calf tenderness. No peripheral edema. PSYCHIATRIC: Cooperative. Good eye contact. Appropriate mood and affect. Laboratory Results - last 24 hr 12/13/17 12/13/17 12/14/17 06:39 09:10 06:26 WBC RBC Hgb Hct MCV MCH MCHC RDW Plt Count MPV Total Counted 100 Neutrophils % Neutrophils % (Manual) 5.0 L D Band Neutrophils % 1.0 Lymphocytes % Lymphocytes % (Manual) 27.0 Monocytes % (Manual) 56 H Blast Cells % (Manual) 9 H D Nucleated RBC % Anisocytosis 1+ Macrocytosis 1+ Sodium Potassium Chloride Carbon Dioxide Anion Gap BUN Creatinine Creat Clearance w eGFR Random Glucose Calcium Total Bilirubin AST ALT Alkaline Phosphatase Total Protein Albumin Random Vancomycin 14.956 Blood Type A POSITIVE Antibody Screen Negative Crossmatch See Detail 12/14/17 12/14/17 06:26 07:30 WBC 5.7 D RBC 2.14 L Hgb 7.0 L D Hct 20.6 L MCV 96.4 H MCH 32.6 MCHC 33.8 RDW 24.3 H Plt Count 243 MPV 6.4 L Total Counted Neutrophils % No Result Required. Neutrophils % (Manual) Band Neutrophils % Lymphocytes % No Result Required. Lymphocytes % (Manual) Monocytes % (Manual) Blast Cells % (Manual) Nucleated RBC % 0 Anisocytosis Macrocytosis Sodium 138 Potassium 3.7 Chloride 106 Carbon Dioxide 20 L Anion Gap 12 BUN 38 H Creatinine 1.9 H D Creat Clearance w eGFR 34.02 Random Glucose 70 L D Calcium 7.4 L Total Bilirubin 0.4 D AST 28 ALT 15 D Alkaline Phosphatase 85 Total Protein 5.7 L Albumin 2.4 L Random Vancomycin Blood Type Antibody Screen Crossmatch Active Medications Generic Name Dose Route Start Last Admin Trade Name Gisella PRN Reason Stop Dose Admin Acetaminophen 650 mg 12/14/17 09:42 12/14/17 09:53 Tylenol - PO 650 mg Q4H PRN Administration FEVER Allopurinol 200 mg 12/13/17 10:00 12/14/17 09:22 Zyloprim - PO 200 mg DAILY MABEL Administration Alprazolam 0.5 mg 12/12/17 16:30 12/13/17 22:28 Xanax - PO 0.5 mg TID PRN Administration ANXIETY Aspirin 81 mg 12/13/17 10:00 12/14/17 09:21 Ecotrin - PO 81 mg DAILY MABEL Administration Atorvastatin Calcium 40 mg 12/12/17 22:00 12/13/17 22:28 Lipitor - PO 40 mg HS MABEL Administration Ferrous Sulfate 325 mg 12/12/17 22:00 12/14/17 09:21 Feosol - PO 325 mg BID MABEL Administration Furosemide 40 mg 12/14/17 12:30 Lasix Injection - IVPUSH 1230,1900 [facility] Cefepime HCl 1 gm in 50 mls @ 100 mls/hr 12/13/17 22:00 12/14/17 09:21 Maxipime 1 Gm Premix Ivpb IVPB 100 mls/hr BID MABEL Administration Protocol Sodium Chloride 1,000 mls @ 42 mls/hr 12/13/17 16:30 12/13/17 17:17 Normal Saline - IV 42 mls/hr ASDIR MABEL Administration Ranitidine HCl 150 mg 12/12/17 22:00 12/14/17 09:22 Zantac - PO 150 mg BID MABEL Administration Tramadol HCl 50 mg 12/12/17 16:30 Ultram - PO Q6H PRN PAIN LEVEL 6-10 Voriconazole 200 mg 12/12/17 22:00 Vfend (Restricted To Id) PO BID [facility] ASSESSMENT/PLAN: 82M with PMH of Lung cancer, Melanoma, AML (declines treatment), triple bypass, htn, presented to hospital after multiple mechanical falls over the past 2 days and sob. # neutrapenic sepsis - continue IV Cefepime and IV Vancomycin (Day 2) - random Vanc level 14.9 - blood culture (-) x 48 hrs - Bladder/Kidney US -> no hydronephrosis, ara renal cysts - Tylenol prn for fever - receiving PRBCs now # dispo - DNR/DNI Plan discussed with Dr. Falcon. Visit type - Emergency Visit Emergency Visit: Yes ED Registration Date: 12/12/17 Care time: The patient presented to the Emergency Department on the above date and was hospitalized for further evaluation of their emergent condition. - New Patient This patient is new to me today: No - Critical Care Critical Care patient: No
[2017-12-14 10:35] LABS: URINE PROTEIN 1+ (NEGATIVE)
[2017-12-14 10:36] LABS: EPI CELLS RARE /HPF (FEW); URINE BACTERIA RARE /hpf (NONE SEEN); URINE MUCUS RARE
[2017-12-14 10:40] LABS: URINE CREATININE 93.9 mg/dL (20-370)
--- NOTE | 2017-12-14 10:57 | PN ---
Progress Note, Physician History of Present Illness: Clinically the same. Mild shortness of breath at rest. Receiving PRBC. No stigmata of gastrointestinal bleeding. - Current Medication List Current Medications: Active Medications Acetaminophen (Tylenol -) 650 mg PO Q4H PRN PRN Reason: FEVER Last Admin: 12/14/17 09:53 Dose: 650 mg Allopurinol (Zyloprim -) 200 mg PO DAILY [facility] Last Admin: 12/14/17 09:22 Dose: 200 mg Alprazolam (Xanax -) 0.5 mg PO TID PRN PRN Reason: ANXIETY Last Admin: 12/13/17 22:28 Dose: 0.5 mg Aspirin (Ecotrin -) 81 mg PO DAILY [facility] Last Admin: 12/14/17 09:21 Dose: 81 mg Atorvastatin Calcium (Lipitor -) 40 mg PO HS [facility] Last Admin: 12/13/17 22:28 Dose: 40 mg Ferrous Sulfate (Feosol -) 325 mg PO BID [facility] Last Admin: 12/14/17 09:21 Dose: 325 mg Furosemide (Lasix Injection -) 40 mg IVPUSH 1230,1900 [facility] Cefepime HCl (Maxipime 1 Gm Premix Ivpb) 1 gm in 50 mls @ 100 mls/hr IVPB BID [facility]; Protocol Last Admin: 12/14/17 09:21 Dose: 100 mls/hr Sodium Chloride (Normal Saline -) 1,000 mls @ 42 mls/hr IV ASDIR [facility] Last Admin: 12/13/17 17:17 Dose: 42 mls/hr Ranitidine HCl (Zantac -) 150 mg PO BID [facility] Last Admin: 12/14/17 09:22 Dose: 150 mg Tramadol HCl (Ultram -) 50 mg PO Q6H PRN PRN Reason: PAIN LEVEL 6-10 Voriconazole (Vfend (Restricted To Id)) 200 mg PO BID [facility] - Objective Vital Signs: Vital Signs Temperature 99.9 F H 12/14/17 02:00 Pulse Rate 93 H 12/14/17 06:00 Respiratory Rate 20 12/14/17 09:00 Blood Pressure 128/52 12/14/17 06:00 O2 Sat by Pulse Oximetry (%) 100 12/14/17 09:00 Constitutional: Yes: No Distress, Calm, Pallor Gastrointestinal: Yes: Normal Bowel Sounds, Soft. No: Ascites, Distention, Tenderness Labs: CBC, BMP 12/14/17 07:30 12/14/17 06:26 INR, PTT INR 1.19 (0.82-1.09) H 12/12/17 10:40 Laboratory Last Values WBC 5.7 K/mm3 (4.0-10.0) D 12/14/17 07:30 RBC 2.14 M/mm3 (4.00-5.60) L 12/14/17 07:30 Hgb 7.0 GM/dL (11.7-16.9) L D 12/14/17 07:30 Hct 20.6 % (35.4-49) L 12/14/17 07:30 MCV 96.4 fl (80-96) H 12/14/17 07:30 MCH 32.6 pg (25.7-33.7) 12/14/17 07:30 MCHC 33.8 g/dl (32.0-35.9) 12/14/17 07:30 RDW 24.3 % (11.9-15.9) H 12/14/17 07:30 Plt Count 243 K/MM3 (134-434) 12/14/17 07:30 MPV 6.4 fl (7.5-11.1) L 12/14/17 07:30 Total Counted 100 12/13/17 06:39 Neutrophils % No Result Required. 12/14/17 07:30 Neutrophils % (Manual) 5.0 % (42.8-82.8) L D 12/13/17 06:39 Band Neutrophils % 1.0 % 12/13/17 06:39 Lymphocytes % No Result Required. 12/14/17 07:30 Lymphocytes % (Manual) 27.0 % (8-40) 12/13/17 06:39 Monocytes % 58.5 % (3.8-10.2) H 12/13/17 06:39 Monocytes % (Manual) 56 % (3.8-10.2) H 12/13/17 06:39 Eosinophils % 0.2 % (0-4.5) D 12/13/17 06:39 Eosinophils % (Manual) 0.0 % (0-4.5) D 12/12/17 10:18 Basophils % 0.1 % (0-2.0) 12/13/17 06:39 Basophils % (Manual) 0.0 % (0-2.0) 12/12/17 10:18 Myelocytes % (Man) 0 % (0-2) 12/12/17 10:18 Promyelocytes % (Man) 0 % (0-2) 12/12/17 10:18 Blast Cells % (Manual) 9 % (0-0) H D 12/13/17 06:39 Nucleated RBC % 0 % (0-0) 12/14/17 07:30 Metamyelocytes 0 % (0-2) 12/12/17 10:18 Platelet Estimate Normal 12/12/17 10:18 Polychromasia 1+ 12/12/17 10:18 Anisocytosis 1+ 12/13/17 06:39 Microcytosis 1+ 12/12/17 10:18 Macrocytosis 1+ 12/13/17 06:39 Tear Drop Cells 1+ 12/12/17 10:18 PT with INR 13.50 SEC (9.7-13.0) H 12/12/17 10:40 INR 1.19 (0.82-1.09) H 12/12/17 10:40 PTT (Actin FS) 25.9 SECONDS (26.9-34.4) L 12/12/17 10:40 VBG pH 7.34 (7.32-7.42) 12/12/17 10:18 POC VBG pCO2 46.7 mmHg (38-52) 12/12/17 10:18 POC VBG pO2 13.8 mmHg (28-48) L* 12/12/17 10:18 Mixed VBG HCO3 24.3 meq/L (19-25) 12/12/17 10:18 Sodium 138 mmol/L (136-145) 12/14/17 06:26 Potassium 3.7 mmol/L (3.5-5.1) 12/14/17 06:26 Chloride 106 mmol/L (98-107) 12/14/17 06:26 Carbon Dioxide 20 mmol/L (21-32) L 12/14/17 06:26 Anion Gap 12 (8-16) 12/14/17 06:26 BUN 38 mg/dL (7-18) H 12/14/17 06:26 Creatinine 1.9 mg/dL (0.7-1.3) H D 12/14/17 06:26 Creat Clearance w eGFR 34.02 (>60) 12/14/17 06:26 Random Glucose 70 mg/dL (74-106) L D 12/14/17 06:26 Lactic Acid 1.8 mmol/L (0.0-2.0) 12/12/17 13:40 Uric Acid 5.6 mg/dL (2.6-7.2) D 12/13/17 06:39 Calcium 7.4 mg/dL (8.5-10.1) L 12/14/17 06:26 Total Bilirubin 0.4 mg/dL (0.2-1.0) D 12/14/17 06:26 AST 28 U/L (15-37) 12/14/17 06:26 ALT 15 U/L (12-78) D 12/14/17 06:26 Alkaline Phosphatase 85 U/L (45-117) 12/14/17 06:26 LD Total 266 U/L (87-241) H 12/13/17 06:39 Troponin I 0.04 ng/ml (0.00-0.05) D 12/12/17 10:40 B-Natriuretic Peptide 05893.27 pg/ml (5-450) H 12/12/17 16:16 Total Protein 5.7 g/dl (6.4-8.2) L 12/14/17 06:26 Albumin 2.4 g/dl (3.4-5.0) L 12/14/17 06:26 Urine Color Yellow 12/14/17 09:40 Urine Appearance Slcloudy 12/14/17 09:40 Urine pH 5.0 (5.0-8.0) 12/14/17 09:40 Ur Specific [place] 1.015 (1.001-1.035) 12/14/17 09:40 Urine Protein 1+ (NEGATIVE) H 12/14/17 09:40 Urine Glucose (UA) Negative (NEGATIVE) 12/14/17 09:40 Urine Ketones Trace (NEGATIVE) H 12/14/17 09:40 Urine Blood 1+ (NEGATIVE) H 12/14/17 09:40 Urine Nitrite Negative (NEGATIVE) 12/14/17 09:40 Urine Bilirubin Negative (<2.0 mg/dL) 12/14/17 09:40 Urine Urobilinogen Negative mg/dL (0.2-1.0) 12/14/17 09:40 Ur Leukocyte Esterase Negative (NEGATIVE) 12/14/17 09:40 Urine WBC (Auto) 1 /hpf (3-5) 12/14/17 09:40 Urine RBC (Auto) 1 /hpf (0-3) 12/14/17 09:40 Ur Epithelial Cells Rare /HPF (FEW) 12/14/17 09:40 Urine Bacteria Rare /hpf (NONE SEEN) 12/14/17 09:40 Hyaline Casts 9 /lpf 12/12/17 13:40 Granular Casts 5 /lpf 12/12/17 13:40 Urine Mucus Rare 12/14/17 09:40 Ur Random Sodium 47 MMOL/L 12/14/17 09:40 Ur Random Potassium 22.4 MMOL/L 12/14/17 09:40 Ur Random Chloride 34 MMOL/L 12/14/17 09:40 Urine Creatinine 93.9 mg/dL (20-370) 12/14/17 09:40 Random Vancomycin 14.956 ug/ml 12/14/17 06:26 Blood Type A POSITIVE 12/13/17 09:10 Antibody Screen Negative 12/13/17 09:10 Crossmatch See Detail 12/13/17 09:10 Problem List - Problems (1) AML (acute myeloblastic leukemia) Code(s): C92.00 - ACUTE MYELOBLASTIC LEUKEMIA, NOT HAVING ACHIEVED REMISSION Qualifiers: Leukemia Active/Remission status: without remission Qualified Code(s): C92.00 - Acute myeloblastic leukemia, not having achieved remission (2) Anemia Code(s): D64.9 - ANEMIA, UNSPECIFIED Qualifiers: Anemia type: unspecified type Qualified Code(s): D64.9 - Anemia, unspecified Assessment/Plan No stigmata of gastrointestinal bleeding at this time. Continue current management as per hematology/oncology. Discussed with the patient.
--- NOTE | 2017-12-14 11:48 | PN ---
Progress Note (short form) - Note Progress Note: PULMONARY CONSUTATION DICTATED 12/14/17 IMP NEUTROPENIC FEVER/SEPSIS ? SOURCE AML ANEMIA SYNCOPE H/O MELANOMA H/O LUNG CA S/P RESECTION PULMONARY NODULE ?MALIGNANT ASHD S/P CABG ACUTE KIDNEY INJURY HTN DASTOLIC HF PLAN ABX PER ID CULTURES INHALED BRONCHODILATORS NORNAL TRANSFUSION THRESHOLD IVF MONITOR LYTES,RENAL FUNCTION,H+H SUPPLEMENTAL O2 DR HANSEN Problem List - Problems (1) Neutropenia Code(s): D70.9 - NEUTROPENIA, UNSPECIFIED (2) Fever Code(s): R50.9 - FEVER, UNSPECIFIED Qualifiers: Fever type: due to other condition Qualified Code(s): R50.81 - Fever presenting with conditions classified elsewhere (3) Sepsis Code(s): A41.9 - SEPSIS, UNSPECIFIED ORGANISM (4) AML (acute myeloblastic leukemia) Code(s): C92.00 - ACUTE MYELOBLASTIC LEUKEMIA, NOT HAVING ACHIEVED REMISSION Qualifiers: Leukemia Active/Remission status: without remission Qualified Code(s): C92.00 - Acute myeloblastic leukemia, not having achieved remission (5) Anemia Code(s): D64.9 - ANEMIA, UNSPECIFIED Qualifiers: Anemia type: unspecified type Qualified Code(s): D64.9 - Anemia, unspecified (6) Chronic diastolic (congestive) heart failure Code(s): I50.32 - CHRONIC DIASTOLIC (CONGESTIVE) HEART FAILURE (7) HLD (hyperlipidemia) Code(s): E78.5 - HYPERLIPIDEMIA, UNSPECIFIED (8) HTN (hypertension) Code(s): I10 - ESSENTIAL (PRIMARY) HYPERTENSION Qualifiers: Hypertension type: essential hypertension Qualified Code(s): I10 - Essential (primary) hypertension (9) Lung cancer Code(s): C34.90 - MALIGNANT NEOPLASM OF UNSP PART OF UNSP BRONCHUS OR LUNG Qualifiers: Laterality: unspecified laterality (10) Melanoma Code(s): C43.9 - MALIGNANT MELANOMA OF SKIN, UNSPECIFIED Qualifiers: Melanoma location: unspecified site Qualified Code(s): C43.9 - Malignant melanoma of skin, unspecified (11) Shortness of breath Code(s): R06.02 - SHORTNESS OF BREATH (12) Syncope Code(s): R55 - SYNCOPE AND COLLAPSE Qualifiers: Syncope type: unspecified Qualified Code(s): R55 - Syncope and collapse
[2017-12-14] MEDS ORDERED: ALBUTEROL SO4 2.5/IPRATROPIUM 0.5 INH SOL 3 ML VIAL.NEB. NEB PRN (11:51)
--- NOTE | 2017-12-14 12:31 | CONS ---
DATE OF CONSULTATION: 12/14/2017 REFERRING PHYSICIAN: Vonda Negron MD HISTORY: The patient is an 82-year-old white male known to me from previous hospitalizations with extensive past medical history, which includes ASHD status post coronary artery bypass graft, history of chronic diastolic congestive heart failure, history of melanoma, Raynaud's, history of lung cancer status post resection, hypertension, hyperlipidemia, AML, patient refused treatment, gout, history of tobacco use many years ago admitted to [facility] on December 12 status post multiple mechanical falls over the 2 days prior to admission associated with shortness of breath. The patient apparently was in the bathroom and had a syncopal episode and loss of consciousness. He denied any complaints of chest pain, nausea, vomiting, or diaphoresis prior to the episode. He also complained of some weakness and also states just not feeling well. Also complained of increasing shortness of breath. EMS was called. The patient was transferred to the emergency room. In the ER, he was placed on supplemental O2 with some improvement. On admission, he was also noted to have a temperature of 103.1. He was evaluated by ID consultation and placed on broad-spectrum antibiotics. Of note, the patient was noted on admission to have white count of 10.2 and hemoglobin 9.[address] scan of the chest was performed, which revealed a 1-cm nodule in the lateral segment of the right middle lobe. No definitive infiltrate was appreciated. At the current time, the patient denies any complaints. Denies any chest pains or palpitations. Does complain of some mild chest congestion. No cough, no hemoptysis. PAST MEDICAL HISTORY: Again, includes chronic diastolic heart failure, melanoma , Raynaud's, history of lung cancer status post resection, history of AML for which he is refusing treatment. Gout, hypertension, ASHD status post CABG. REVIEW OF SYSTEMS: Positive cough, positive fever, positive chills, positive weakness, positive congestion. No chest pain, no palpitations, no nausea, no vomiting, no abdominal pain. CURRENT MEDICATIONS: Include Tylenol, fluconazole, Zyloprim, Xanax, normal saline, Zantac, Lipitor, Feosol, Lasix, Ecotrin, and Ultram. PHYSICAL EXAMINATION: General: The patient is an elderly white male well-developed, well-nourished awake in no acute respiratory distress. Vital Signs: He is currently afebrile. T-max is currently 99.9, blood pressure 128/52, respiratory rate 20, O2 saturation 100% on 4 L. HEENT: Normocephalic and atraumatic. Neck: Supple. Heart: Irregular with S1, S2. Chest: Scattered bilateral rhonchi. Abdomen: Soft. Bowel sounds positive. Extremities: No cyanosis or edema. LABORATORIES: WBCs 5.7, hemoglobin 7, hematocrit 20.6, INR 1.1. Venous blood gas: PH 7.34, PCO2 of 46, PO2 of 13, BUN 38, creatinine 1.9, BNP 35,603. Chest CT: There were no acute infiltrates or effusions. There was a smooth noncalcified nodule lateral segment right middle lobe. No pericardial effusions appreciated. IMPRESSION: 1. Fever, sepsis, neutropenic patient, source to be determined. A. Possible pulmonary, although no definitive infiltrates on chest x-ray B. R/O Genitourinary source. 2. Acute myeloid leukemia. 3. History of melanoma. 4. History of lung cancer status post resection. 5. Arteriosclerotic heart disease status post coronary artery bypass graft. 6. Anemia. 7. Acute and chronic kidney disease. PLAN: Antibiotics per Infectious Disease. Obtain cultures. Supplemental O2. Inhaled bronchodilators. Normal transfusion threshold. Obtain follow up chest x-ray. JERRY HANSEN M.D. DAMIR/[id number] MTDD
[2017-12-14] MEDS: FUROSEMIDE 40 MG/4 ML INJECTABLE VIAL IVPUSH SCH ×2 (13:21→21:50)
[2017-12-14] MEDS: VANCOMYCIN 1,000 MG in DEXTROSE 5%-WATER - 250 ML IVPB SCH (13:22)
--- NOTE | 2017-12-14 14:41 | PN ---
Teaching Attending Note Name of Resident: Huyen Hudson ATTENDING PHYSICIAN STATEMENT I saw and evaluated the patient. I reviewed the resident's note and discussed the case with the resident. I agree with the resident's findings and plan as documented. SUBJECTIVE: No focal complaint Appears dyspneic on nasal cannula O2 Temps down +Receiving transfusion PRBCs OBJECTIVE: Dyspneic at rest T99.9 Cor S1S2 + rales bases abdo soft, non tender ASSESSMENT AND PLAN: Febrile neutropenia/ Neutropenic sepsis Lactic acidosis-resolved Azotemia AML Await c/s Continue cefepime Redose vancomycin
[2017-12-14] MEDS ORDERED: SODIUM CHLORIDE 1,000 ML IV SCH (14:56)
--- NOTE | 2017-12-14 14:56 | PN ---
Progress Note, Physician History of Present Illness: Pt seen and examined at bedside. He is awake and alert. He denies shortness of breath. - Current Medication List Current Medications: Active Medications Acetaminophen (Tylenol -) 650 mg PO Q4H PRN PRN Reason: FEVER Last Admin: 12/14/17 09:53 Dose: 650 mg Albuterol/Ipratropium (Duoneb -) 1 amp NEB Q4H PRN PRN Reason: SHORTNESS OF BREATH Allopurinol (Zyloprim -) 200 mg PO DAILY [facility] Last Admin: 12/14/17 09:22 Dose: 200 mg Alprazolam (Xanax -) 0.5 mg PO TID PRN PRN Reason: ANXIETY Last Admin: 12/13/17 22:28 Dose: 0.5 mg Aspirin (Ecotrin -) 81 mg PO DAILY [facility] Last Admin: 12/14/17 09:21 Dose: 81 mg Atorvastatin Calcium (Lipitor -) 40 mg PO HS [facility] Last Admin: 12/13/17 22:28 Dose: 40 mg Ferrous Sulfate (Feosol -) 325 mg PO BID [facility] Last Admin: 12/14/17 09:21 Dose: 325 mg Furosemide (Lasix Injection -) 40 mg IVPUSH 1230,1900 [facility] Last Admin: 12/14/17 13:21 Dose: 40 mg Cefepime HCl (Maxipime 1 Gm Premix Ivpb) 1 gm in 50 mls @ 100 mls/hr IVPB BID [facility]; Protocol Last Admin: 12/14/17 09:21 Dose: 100 mls/hr Sodium Chloride (Normal Saline -) 1,000 mls @ 42 mls/hr IV ASDIR [facility] Last Admin: 12/13/17 17:17 Dose: 42 mls/hr Vancomycin HCl 1,000 mg/ (Dextrose) 250 mls @ 166.667 mls/hr IVPB Q12H [facility]; Protocol Stop: 12/15/17 11:59 Last Admin: 12/14/17 13:22 Dose: 166.667 mls/hr Ranitidine HCl (Zantac -) 150 mg PO BID [facility] Last Admin: 12/14/17 09:22 Dose: 150 mg Tramadol HCl (Ultram -) 50 mg PO Q6H PRN PRN Reason: PAIN LEVEL 6-10 Voriconazole (Vfend (Restricted To Id)) 200 mg PO BID [facility] - Objective Vital Signs: Vital Signs Temperature 99.9 F H 12/14/17 02:00 Pulse Rate 93 H 12/14/17 06:00 Respiratory Rate 20 12/14/17 09:00 Blood Pressure 128/52 12/14/17 06:00 O2 Sat by Pulse Oximetry (%) 100 12/14/17 09:00 Constitutional: Yes: Calm Eyes: Yes: Conjunctiva Clear HENT: Yes: Atraumatic Neck: Yes: Supple Cardiovascular: Yes: S1, S2 Respiratory: Yes: CTA Bilaterally, On Nasal O2 Gastrointestinal: Yes: Soft Genitourinary: Yes: WNL Musculoskeletal: Yes: WNL Edema: No Neurological: Yes: Oriented Psychiatric: Yes: Oriented Labs: CBC, BMP 12/14/17 07:30 12/14/17 06:26 INR, PTT INR 1.19 (0.82-1.09) H 12/12/17 10:40 Problem List - Problems (1) Acute kidney injury Code(s): N17.9 - ACUTE KIDNEY FAILURE, UNSPECIFIED (2) Anemia Code(s): D64.9 - ANEMIA, UNSPECIFIED Qualifiers: Anemia type: unspecified type Qualified Code(s): D64.9 - Anemia, unspecified Assessment/Plan Current Medications Generic Name Dose Route Start Last Admin Trade Name Freq PRN Reason Stop Dose Admin Acetaminophen 650 mg 12/14/17 09:42 12/14/17 09:53 Tylenol - PO 650 mg Q4H PRN Administration FEVER Albuterol/Ipratropium 1 amp 12/14/17 11:51 Duoneb - NEB Q4H PRN SHORTNESS OF BREATH Allopurinol 200 mg 12/13/17 10:00 12/14/17 09:22 Zyloprim - PO 200 mg DAILY [facility] Administration Alprazolam 0.5 mg 12/12/17 16:30 12/13/17 22:28 Xanax - PO 0.5 mg TID PRN Administration ANXIETY Aspirin 81 mg 12/13/17 10:00 12/14/17 09:21 Ecotrin - PO 81 mg DAILY [facility] Administration Atorvastatin Calcium 40 mg 12/12/17 22:00 12/13/17 22:28 Lipitor - PO 40 mg HS [facility] Administration Ferrous Sulfate 325 mg 12/12/17 22:00 12/14/17 09:21 Feosol - PO 325 mg BID [facility] Administration Furosemide 40 mg 12/14/17 12:30 12/14/17 13:21 Lasix Injection - IVPUSH 40 mg 1230,1900 [facility] Administration Cefepime HCl 1 gm in 50 mls @ 100 mls/hr 12/13/17 22:00 12/14/17 09:21 Maxipime 1 Gm Premix Ivpb IVPB 100 mls/hr BID [facility] Administration Protocol Sodium Chloride 1,000 mls @ 42 mls/hr 12/13/17 16:30 12/13/17 17:17 Normal Saline - IV 42 mls/hr ASDIR [facility] Administration Vancomycin HCl 1,000 mg/ 250 mls @ 166.667 mls/hr 12/14/17 12:00 12/14/17 13: 22 Dextrose IVPB 12/15/17 11:59 166.667 mls/hr Q12H [facility] Administration Protocol Ranitidine HCl 150 mg 12/12/17 22:00 12/14/17 09:22 Zantac - PO 150 mg BID [facility] Administration Tramadol HCl 50 mg 12/12/17 16:30 Ultram - PO Q6H PRN PAIN LEVEL 6-10 Voriconazole 200 mg 12/12/17 22:00 Vfend (Restricted To Id) PO BID [facility] Impression 1. history of hyponatremia 2. anemia 3. leukopenia 4. hx lung cancer 5. hx melanoma 6. CAD 7. gout 8. fever 9. NUBIA 10. neutropenic fever Plan - renal function is improving - decrease rate of fluids - likely NUBIA from prerenal disease - repeat labs in am - abx per ID - transfuse as needed - discussed with pt and family - will follow Dr Bray
[2017-12-14] MEDS ORDERED: PT OWN MED DRAWER 7, Y5N ONE (16:24)
[2017-12-14] MEDS: VORICONAZOLE 200 MG TABLET (RESTRICTED TO ID) PO SCH (17:06)
--- NOTE | 2017-12-14 19:25 | PATH ---
Surgical Pathology Report Patient Name: PAL JARAMILLO Med. Rec. #: [id number] /Age/Gender: 1935 (Age: 82) / M Account: [id number] Location: 4 W TELEMETRY U Taken: 12/14/2017 Received: 12/14/2017 Reported: 12/14/2017 Physicians: Naima Dickens M.D. Specimen(s) Received PERIPHERAL BLOOD Clinical History AML Final Diagnosis COMPREHENSIVE FLOW CYTOMETRY performed and interpreted at [facility], [place], [place] ([id number]) INTERPRETATION: ACUTE LEUKEMIA, 40% BLASTS. Comment: The blasts have an ambiguous phenotype with weak evidence for both myeloid and T-cell differentiation. The myeloid markers include CD13 and CD117, while the T-cell markers include dim partial cytoplasmic CD3 and partial CD7. Findings discussed with Dr. Dickens, 12/14/17. See [facility] report for details. Electronically Signed Lillian Ray M.D. Gross Description Received labelled with the patient's name are two green top tubes of peripheral blood which are forwarded to [facility] for ancillary testing
[2017-12-14] MEDS: ALPRAZolam 0.25 MG TABLET PO PRN (21:50)
[2017-12-14] MEDS: ATORVASTATIN CA 40 MG TABLET (FP) PO SCH (21:50)
[2017-12-15] MEDS: VANCOMYCIN 1,000 MG in DEXTROSE 5%-WATER - 250 ML IVPB SCH (01:00)
[2017-12-15] MEDS: ACETAMINOPHEN 325 MG TABLET (FP) PO PRN (01:47)
[2017-12-15 07:49] LABS: CHLORIDE 105 mmol/L (98-107); POTASSIUM 3.3 mmol/L (3.5-5.1); SODIUM 139 mmol/L (136-145)
[2017-12-15 07:57] LABS: ANION GAP 13 (8-16); BLOOD UREA NITROGEN 38 mg/dL (7-18); CALCIUM 7.7 mg/dL (8.5-10.1); CO2 21 mmol/L (21-32); CREATININE 1.7 mg/dL (0.7-1.3); GLUCOSE,RANDOM 105 mg/dL (74-106)
--- NOTE | 2017-12-15 08:16 | PN ---
Progress Note, Physician History of Present Illness: 82 year old male, with a significant past medical history of lung CA (s/p nodules), melanoma, AML, triple bypass, and hypertension, who presents to the emergency department s/p multiple mechanical falls over the past 2 days. The patient reports associated weakness and shortness of breath, but denies any chest pain, diaphoresis, palpitations, or lower extremity edema. patient reports nausea and one episode of nonbloody/nonbilious vomiting, but denies any abdominal pain, diarrhea, or constipation. He reports some dizziness and thinks he passed out twice, but denies any fever, chills, cough, headache, or lightheadedness. He denies any dysuria, hematuria, frequency, or urgency. He denies any recent travel or sick contacts. - Current Medication List Current Medications: Active Medications Acetaminophen (Tylenol -) 650 mg PO Q4H PRN PRN Reason: FEVER Last Admin: 12/15/17 01:47 Dose: 650 mg Albuterol/Ipratropium (Duoneb -) 1 amp NEB Q4H PRN PRN Reason: SHORTNESS OF BREATH Allopurinol (Zyloprim -) 200 mg PO DAILY [facility] Last Admin: 12/14/17 09:22 Dose: 200 mg Alprazolam (Xanax -) 0.5 mg PO TID PRN PRN Reason: ANXIETY Last Admin: 12/14/17 21:50 Dose: 0.5 mg Aspirin (Ecotrin -) 81 mg PO DAILY [facility] Last Admin: 12/14/17 09:21 Dose: 81 mg Atorvastatin Calcium (Lipitor -) 40 mg PO HS [facility] Last Admin: 12/14/17 21:50 Dose: 40 mg Ferrous Sulfate (Feosol -) 325 mg PO BID [facility] Last Admin: 12/14/17 21:50 Dose: 325 mg Furosemide (Lasix Injection -) 40 mg IVPUSH 1230,1900 [facility] Last Admin: 12/14/17 21:50 Dose: 40 mg Cefepime HCl (Maxipime 1 Gm Premix Ivpb) 1 gm in 50 mls @ 100 mls/hr IVPB BID [facility]; Protocol Last Admin: 12/14/17 21:51 Dose: 100 mls/hr Vancomycin HCl 1,000 mg/ (Dextrose) 250 mls @ 166.667 mls/hr IVPB Q12H [facility]; Protocol Stop: 12/15/17 11:59 Last Admin: 12/15/17 01:00 Dose: 166.667 mls/hr Ranitidine HCl (Zantac -) 150 mg PO BID [facility] Last Admin: 12/14/17 21:50 Dose: 150 mg Tramadol HCl (Ultram -) 50 mg PO Q6H PRN PRN Reason: PAIN LEVEL 6-10 Voriconazole (Vfend (Restricted To Id)) 200 mg PO BIDWM [facility] Last Admin: 12/14/17 17:06 Dose: Not Given - Objective Vital Signs: Vital Signs Temperature 98.6 F 12/15/17 06:17 Pulse Rate 86 12/15/17 06:17 Respiratory Rate 20 12/15/17 06:17 Blood Pressure 138/63 12/15/17 06:17 O2 Sat by Pulse Oximetry (%) 95 12/14/17 20:29 Eyes: Yes: WNL, Conjunctiva Clear, EOM Intact HENT: Yes: WNL, Atraumatic, Normocephalic Neck: Yes: WNL, Supple, Trachea Midline Cardiovascular: Yes: WNL, Regular Rate and Rhythm Respiratory: Yes: WNL, Regular, CTA Bilaterally Gastrointestinal: Yes: WNL, Normal Bowel Sounds Genitourinary: Yes: WNL Musculoskeletal: Yes: WNL Extremities: Yes: WNL Edema: No Integumentary: Yes: WNL Neurological: Yes: WNL, Alert, Oriented ...Motor Strength: WNL Psychiatric: Yes: WNL Labs: CBC, BMP 12/14/17 07:30 INR, PTT INR 1.19 (0.82-1.09) H 12/12/17 10:40 Assessment/Plan IMP: AML-- on no treatment, on periodic PRBCs CAD s/p CABG, chronic angina 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 Cultures, abx as per PMD 2. Hold all AV harjeet agents 3. DNR/DNI: d/c TELE coverage for dr Irene
--- NOTE | 2017-12-15 09:14 | PN ---
Progress Note (short form) - Note Progress Note: PULMONARY States breathing is improving. +nonproductive cough without wheezing. Last Vital Signs Temp Pulse Resp BP Pulse Ox 98.6 F 86 20 138/63 96 12/15/17 06:17 12/15/17 06:17 12/15/17 06:17 12/15/17 06:17 12/15/17 08:41 Gen: NAD at rest Heart: RRR Lung: decreased breath sounds at the bases Abd: soft, nontender Ext: no edema CBC, BMP 12/14/17 07:30 12/15/17 05:40 Active Medications Acetaminophen (Tylenol -) 650 mg PO Q4H PRN PRN Reason: FEVER Last Admin: 12/15/17 01:47 Dose: 650 mg Albuterol/Ipratropium (Duoneb -) 1 amp NEB Q4H PRN PRN Reason: SHORTNESS OF BREATH Allopurinol (Zyloprim -) 200 mg PO DAILY [facility] Last Admin: 12/14/17 09:22 Dose: 200 mg Alprazolam (Xanax -) 0.5 mg PO TID PRN PRN Reason: ANXIETY Last Admin: 12/14/17 21:50 Dose: 0.5 mg Aspirin (Ecotrin -) 81 mg PO DAILY [facility] Last Admin: 12/14/17 09:21 Dose: 81 mg Atorvastatin Calcium (Lipitor -) 40 mg PO HS [facility] Last Admin: 12/14/17 21:50 Dose: 40 mg Ferrous Sulfate (Feosol -) 325 mg PO BID [facility] Last Admin: 12/14/17 21:50 Dose: 325 mg Furosemide (Lasix Injection -) 40 mg IVPUSH 1230,1900 [facility] Last Admin: 12/14/17 21:50 Dose: 40 mg Cefepime HCl (Maxipime 1 Gm Premix Ivpb) 1 gm in 50 mls @ 100 mls/hr IVPB BID [facility]; Protocol Last Admin: 12/14/17 21:51 Dose: 100 mls/hr Vancomycin HCl 1,000 mg/ (Dextrose) 250 mls @ 166.667 mls/hr IVPB Q12H [facility]; Protocol Stop: 12/15/17 11:59 Last Admin: 12/15/17 01:00 Dose: 166.667 mls/hr Ranitidine HCl (Zantac -) 150 mg PO BID [facility] Last Admin: 12/14/17 21:50 Dose: 150 mg Tramadol HCl (Ultram -) 50 mg PO Q6H PRN PRN Reason: PAIN LEVEL 6-10 Voriconazole (Vfend (Restricted To Id)) 200 mg PO BIDWM [facility] Last Admin: 12/14/17 17:06 Dose: Not Given A/P Neutropenic Sepsis Acute Kidney Injury AML h/o Lung Ca Lung Nodules CAD s/p CABG LV Diastolic Dysfunction HTN - continue antibiotics per ID - f/u cultures - can decrease lasix - replete lytes - O2 to keep SpO2 >90% - inhaled bronchodilators - will need outpt f/u of lung nodules - DVT prophylaxis
[2017-12-15] MEDS ORDERED: POTASSIUM CHLORIDE TABS 20 MEQ TABLET.ER (FP) PO ONE (09:15)
[2017-12-15] MEDS: VORICONAZOLE 200 MG TABLET (RESTRICTED TO ID) PO SCH ×2 (09:56→18:20)
[2017-12-15] MEDS: ASPIRIN COATED 81 MG TABLET.EC PO SCH (09:57)
[2017-12-15] MEDS: CEFEPIME HCL/D5W 1 GM/50 ML BAG IVPB SCH (09:57)
[2017-12-15] MEDS: FERROUS SO4 325 MG TABLET (FP) PO SCH ×2 (09:57→21:13)
[2017-12-15] MEDS: RANITIDINE HCL 150 MG TABLET (FP) PO SCH ×2 (09:58→21:13)
[2017-12-15] MEDS: ALLOPURINOL 100 MG TABLET (FP) PO SCH (09:58)
[2017-12-15 11:55] LABS: BASO % 0.6 % (0-2.0); EOS % 0.4 % (0-4.5); HEMATOCRIT 28.4 % (35.4-49); HEMOGLOBIN 9.8 GM/dL (11.7-16.9); LYMPH % 65.7 % (8-40); MCH 32.7 pg (25.7-33.7); MCHC 34.6 g/dl (32.0-35.9); MEAN CELL VOLUME 94.5 fl (80-96); MEAN PLT VOLUME 6.5 fl (7.5-11.1); MONO % 30.1 % (3.8-10.2); NEUT % 3.2 % (42.8-82.8); PLATELET COUNT 196 K/MM3 (134-434); RDW 21.6 % (11.9-15.9); WHITE BLOOD COUNT 5.1 K/mm3 (4.0-10.0)
--- NOTE | 2017-12-15 11:57 | PN ---
Progress Note (short form) - Note Progress Note: Pt seen and examined . events noted Pt continues to be SOB. O/E: General: mild distress HEENT: NCAT Cor: RRR Lungs:poor inspiratory effort LE: No CCE Last Vital Signs Temp Pulse Resp BP Pulse Ox 98.6 F 93 H 22 114/76 99 12/15/17 06:17 12/15/17 09:20 12/15/17 09:20 12/15/17 09:20 12/15/17 09:25 CBC, BMP 12/15/17 05:40 Current Medications Generic Name Dose Route Start Last Admin Trade Name Freq PRN Reason Stop Dose Admin Acetaminophen 650 mg 12/14/17 09:42 12/15/17 01:47 Tylenol - PO 650 mg Q4H PRN Administration FEVER Albuterol/Ipratropium 1 amp 12/14/17 11:51 Duoneb - NEB Q4H PRN SHORTNESS OF BREATH Allopurinol 200 mg 12/13/17 10:00 12/15/17 09:58 Zyloprim - PO 200 mg DAILY [facility] Administration Alprazolam 0.5 mg 12/12/17 16:30 12/14/17 21:50 Xanax - PO 0.5 mg TID PRN Administration ANXIETY Aspirin 81 mg 12/13/17 10:00 12/15/17 09:57 Ecotrin - PO 81 mg DAILY [facility] Administration Atorvastatin Calcium 40 mg 12/12/17 22:00 12/14/17 21:50 Lipitor - PO 40 mg HS [facility] Administration Ferrous Sulfate 325 mg 12/12/17 22:00 12/15/17 09:57 Feosol - PO 325 mg BID [facility] Administration Furosemide 40 mg 12/14/17 12:30 12/14/17 21:50 Lasix Injection - IVPUSH 40 mg 1230,1900 [facility] Administration Cefepime HCl 1 gm in 50 mls @ 100 mls/hr 12/13/17 22:00 12/15/17 09:57 Maxipime 1 Gm Premix Ivpb IVPB 100 mls/hr BID [facility] Administration Protocol Vancomycin HCl 1,000 mg/ 250 mls @ 166.667 mls/hr 12/14/17 12:00 12/15/17 01: 00 Dextrose IVPB 12/15/17 11:59 166.667 mls/hr Q12H [facility] Administration Protocol Ranitidine HCl 150 mg 12/12/17 22:00 12/15/17 09:58 Zantac - PO 150 mg BID [facility] Administration Tramadol HCl 50 mg 12/12/17 16:30 Ultram - PO Q6H PRN PAIN LEVEL 6-10 Voriconazole 200 mg 12/14/17 17:30 12/15/17 09:56 Vfend (Restricted To Id) PO 200 mg BIDWM [facility] Administration AML-- on no treatment (per pts choice)-- flow with 40% blasts . Neutropenic sepsis: on broad spectrum including anti-fungal/viral--?leukemia induced SOB: Multifactorial Supportive care with regular transfusion threshold. Neupogen NUBIA: resolving poor PS/Guarded prognosis Paliative care consult.
--- NOTE | 2017-12-15 12:08 | PN ---
Progress Note (short form) - Note Progress Note: NAD Vital Signs Period Temp Pulse Resp BP Sys/Alvares Pulse Ox Last 24 Hr 97.9 F-102.7 F 86-98 18-22 114-139/62-77 95-99 cold sore on lip cor-rrr lungs decreased bs at bases abd soft,nt ext no edema CBC, BMP 12/15/17 05:40 12/15/17 05:40 Microbiology 12/12/17 12:01 Blood - Peripheral Venous Blood Culture - Preliminary NO GROWTH OBTAINED AFTER 72 HOURS, INCUBATION TO CONTINUE FOR 2 DAYS. 12/12/17 10:40 Blood - Peripheral Venous Blood Culture - Preliminary NO GROWTH OBTAINED AFTER 72 HOURS, INCUBATION TO CONTINUE FOR 2 DAYS. 12/12/17 13:40 Urine - Urine Clean Catch Urine Culture - Final NO GROWTH OBTAINED 12/12/17 16:40 Nasopharyngeal Swab Influenza Types A,B Antigen - Final 12/12/17 16:40 Nasopharyngeal Swab - Final a/p neutropenic fevers- continue cefepime, cultures negative to date- differential pending - ?secondary to AML ct scans noted- no clear infiltrates received vancomycin yesterday, check trough a/p transfusion oral HSV-lip blister- add valtrex on antifungal maximo- renal f/u AML- noted, treatment declined by patient patient is DNR- forms signed in ER palliative care
[2017-12-15 12:11] LABS: ALBUMIN 2.5 g/dl (3.4-5.0); ALK PHOS 98 U/L (45-117); BILIRUBIN,TOTAL 0.9 mg/dL (0.2-1.0); LDH 297 U/L (87-241); SGOT/AST 39 U/L (15-37); SGPT/ALT 35 U/L (12-78); TOT PROT 6.1 g/dl (6.4-8.2)
[2017-12-15] MEDS ORDERED: valACYclovir HCL 1000 MG TABLET PO SCH (12:15)
[2017-12-15] MEDS ORDERED: valACYclovir HCL 500 MG TABLET (FP) PO SCH (12:15)
[2017-12-15] MEDS: FUROSEMIDE 40 MG/4 ML INJECTABLE VIAL IVPUSH SCH ×2 (14:02→18:20)
[2017-12-15] MEDS: valACYclovir HCL 500 MG TABLET (FP) PO SCH ×2 (14:05→21:13)
[2017-12-15] MEDS ORDERED: PT OWN MED DRAWER 7, Y5N ONE ×4 (17:40→22:00)
--- NOTE | 2017-12-15 18:56 | PN ---
Physical Exam: SUBJECTIVE: Patient seen and examined. He has no complaints. OBJECTIVE: Vital Signs Period Temp Pulse Resp BP Sys/Alvares Pulse Ox Last 24 Hr 98.5 F-102.7 F 80-98 18-22 114-139/54-77 95-99 GENERAL: The patient is awake, alert, and fully oriented, in no acute distress. LUNGS: Breath sounds equal, clear to auscultation bilaterally, no wheezes, no crackles, no accessory muscle use. HEART: Regular rate and rhythm, S1, S2 without murmur, rub or gallop. ABDOMEN: Soft, nontender, nondistended, normoactive bowel sounds, no guarding, no rebound, no hepatosplenomegaly, no masses. EXTREMITIES: 2+ pulses, warm, well-perfused, no edema. Laboratory Results - last 24 hr 12/15/17 12/15/17 12/15/17 05:40 05:40 05:40 WBC 5.1 RBC 3.00 L D Hgb 9.8 L D Hct 28.4 L D MCV 94.5 MCH 32.7 MCHC 34.6 RDW 21.6 H Plt Count 196 MPV 6.5 L Neutrophils % 3.2 L Lymphocytes % 65.7 H D Monocytes % 30.1 H Eosinophils % 0.4 D Basophils % 0.6 D Nucleated RBC % 0 Sodium 139 Cancelled Potassium 3.3 L Cancelled Chloride 105 Cancelled Carbon Dioxide 21 Cancelled Anion Gap 13 Cancelled BUN 38 H Cancelled Creatinine 1.7 H Cancelled Creat Clearance w eGFR No Result Required. Cancelled Random Glucose 105 D Cancelled Calcium 7.7 L Cancelled Total Bilirubin 0.9 D Cancelled AST 39 H D Cancelled ALT 35 D Cancelled Alkaline Phosphatase 98 Cancelled LD Total 297 H Cancelled Total Protein 6.1 L Cancelled Albumin 2.5 L Cancelled Active Medications Generic Name Dose Route Start Last Admin Trade Name Freq PRN Reason Stop Dose Admin Acetaminophen 650 mg 12/14/17 09:42 12/15/17 01:47 Tylenol - PO 650 mg Q4H PRN Administration FEVER Albuterol/Ipratropium 1 amp 12/14/17 11:51 Duoneb - NEB Q4H PRN SHORTNESS OF BREATH Allopurinol 200 mg 12/13/17 10:00 12/15/17 09:58 Zyloprim - PO 200 mg DAILY [facility] Administration Aspirin 81 mg 12/13/17 10:00 12/15/17 09:57 Ecotrin - PO 81 mg DAILY [facility] Administration Atorvastatin Calcium 40 mg 12/12/17 22:00 12/14/17 21:50 Lipitor - PO 40 mg HS [facility] Administration Ferrous Sulfate 325 mg 12/12/17 22:00 12/15/17 09:57 Feosol - PO 325 mg BID [facility] Administration Furosemide 40 mg 12/14/17 12:30 12/15/17 18:20 Lasix Injection - IVPUSH 40 mg 1230,1900 [facility] Administration Cefepime HCl 2 gm/ Dextrose 100 mls @ 200 mls/hr 12/15/17 22:00 IVPB BID [facility] Protocol Ranitidine HCl 150 mg 12/12/17 22:00 12/15/17 09:58 Zantac - PO 150 mg BID [facility] Administration Valacyclovir HCl 1,000 mg 12/15/17 12:30 12/15/17 14:05 Valtrex - PO 1,000 mg BID [facility] Administration Voriconazole 200 mg 12/14/17 17:30 12/15/17 18:20 Vfend (Restricted To Id) PO 200 mg BIDWM [facility] Administration ASSESSMENT/PLAN: 1. Neutropenic fever - Had temp 102.7 overnight - Blood cultures negative after 72 hrs - Urine culture negative - On Cefepime, Vfend empirically 2. Herpes labialis - Valtrex started 3. Acute kidney injury - Improving 4. Stage 3 CKD 5. AML 6. Neutropenia, anemia - ANC 163 - Transfused 2 units PRBCs - Continue ferrous sulfate - Neutropenic precautions 7. CAD, history of CABG - Continue aspirin, Lipitor 8. Hypokalemia - Replete potassium 9. Hyponatremia, mild - Improved 10. History of lung cancer, resection 11. History of gout - Continue Allopurinol 12. HTN - On Lasix 13. Chronic diastolic heart failure - Continue Lasix Visit type - Emergency Visit Emergency Visit: Yes ED Registration Date: 12/12/17 Care time: The patient presented to the Emergency Department on the above date and was hospitalized for further evaluation of their emergent condition. - New Patient This patient is new to me today: Yes Date on this admission: 12/15/17 - Critical Care Critical Care patient: No - Discharge Referral Referred to [facility] No
[2017-12-15] MEDS: TBO-FILGRASTIM 480 MCG/0.8 ML DISP.SYRIN SQ SCH (20:51)
[2017-12-15] MEDS: ATORVASTATIN CA 40 MG TABLET (FP) PO SCH (21:13)
[2017-12-15] MEDS: CEFEPIME 2 GM in DEXTROSE 5%-WATER 100 ML IVPB SCH (21:42)
--- NOTE | 2017-12-15 22:10 | PN ---
Progress Note (short form) - Note Progress Note: covering Problems -NUBIA/Prerenal -history of hyponatremia -anemia -leukopenia -hx lung cancer -hx melanoma -CAD -gout -fever -NUBIA -neutropenic fever Current Medications Acetaminophen (Tylenol -) 650 mg PO Q4H PRN PRN Reason: FEVER Last Admin: 12/15/17 01:47 Dose: 650 mg Albuterol/Ipratropium (Duoneb -) 1 amp NEB Q4H PRN PRN Reason: SHORTNESS OF BREATH Allopurinol (Zyloprim -) 200 mg PO DAILY [facility] Last Admin: 12/15/17 09:58 Dose: 200 mg Aspirin (Ecotrin -) 81 mg PO DAILY [facility] Last Admin: 12/15/17 09:57 Dose: 81 mg Atorvastatin Calcium (Lipitor -) 40 mg PO HS [facility] Last Admin: 12/15/17 21:13 Dose: 40 mg Ferrous Sulfate (Feosol -) 325 mg PO BID [facility] Last Admin: 12/15/17 21:13 Dose: 325 mg Furosemide (Lasix Injection -) 40 mg IVPUSH 1230,1900 [facility] Last Admin: 12/15/17 18:20 Dose: 40 mg Cefepime HCl 2 gm/ Dextrose 100 mls @ 200 mls/hr IVPB BID [facility]; Protocol Last Admin: 12/15/17 21:42 Dose: 200 mls/hr Ranitidine HCl (Zantac -) 150 mg PO BID [facility] Last Admin: 12/15/17 21:13 Dose: 150 mg Tbo-Filgrastim (Granix -) 480 mcg SQ DAILY [facility] Last Admin: 12/15/17 20:51 Dose: 480 mcg Valacyclovir HCl (Valtrex -) 1,000 mg PO BID [facility] Last Admin: 12/15/17 21:13 Dose: 1,000 mg Voriconazole (Vfend (Restricted To Id)) 200 mg PO BIDWM [facility] Last Admin: 12/15/17 18:20 Dose: 200 mg Last Vital Signs Temp Pulse Resp BP Pulse Ox 98.5 F 80 18 117/54 99 12/15/17 17:33 12/15/17 17:33 12/15/17 17:33 12/15/17 17:33 12/15/17 09:25 lungs clear Heart reg Abd soft Ext no edema CBC, BMP 12/15/17 05:40 12/15/17 05:40 Plan - renal function is improving - decrease rate of fluids - likely NUBIA from prerenal disease - repeat labs in am - abx per ID - transfuse as needed - discussed with pt and family - will follow
[2017-12-16 08:13] LABS: HEMATOCRIT 27.7 % (35.4-49); HEMOGLOBIN 9.6 GM/dL (11.7-16.9); MCH 32.6 pg (25.7-33.7); MCHC 34.8 g/dl (32.0-35.9); MEAN CELL VOLUME 93.7 fl (80-96); MEAN PLT VOLUME 6.5 fl (7.5-11.1); PLATELET COUNT 169 K/MM3 (134-434); RBC 2.95 M/mm3 (4.00-5.60); RDW 21.9 % (11.9-15.9); WHITE BLOOD COUNT 5.8 K/mm3 (4.0-10.0)
--- NOTE | 2017-12-16 08:26 | PN ---
Progress Note, Physician History of Present Illness: 82 year old male, with a significant past medical history of lung CA (s/p nodules), melanoma, AML, triple bypass, and hypertension, who presents to the emergency department s/p multiple mechanical falls over the past 2 days. The patient reports associated weakness and shortness of breath, but denies any chest pain, diaphoresis, palpitations, or lower extremity edema. patient reports nausea and one episode of nonbloody/nonbilious vomiting, but denies any abdominal pain, diarrhea, or constipation. He reports some dizziness and thinks he passed out twice, but denies any fever, chills, cough, headache, or lightheadedness. He denies any dysuria, hematuria, frequency, or urgency. He denies any recent travel or sick contacts. - Current Medication List Current Medications: Active Medications Acetaminophen (Tylenol -) 650 mg PO Q4H PRN PRN Reason: FEVER Last Admin: 12/15/17 01:47 Dose: 650 mg Albuterol/Ipratropium (Duoneb -) 1 amp NEB Q4H PRN PRN Reason: SHORTNESS OF BREATH Allopurinol (Zyloprim -) 200 mg PO DAILY [facility] Last Admin: 12/15/17 09:58 Dose: 200 mg Aspirin (Ecotrin -) 81 mg PO DAILY [facility] Last Admin: 12/15/17 09:57 Dose: 81 mg Atorvastatin Calcium (Lipitor -) 40 mg PO HS [facility] Last Admin: 12/15/17 21:13 Dose: 40 mg Ferrous Sulfate (Feosol -) 325 mg PO BID [facility] Last Admin: 12/15/17 21:13 Dose: 325 mg Cefepime HCl 2 gm/ Dextrose 100 mls @ 200 mls/hr IVPB BID [facility]; Protocol Last Admin: 12/15/17 21:42 Dose: 200 mls/hr Ranitidine HCl (Zantac -) 150 mg PO BID [facility] Last Admin: 12/15/17 21:13 Dose: 150 mg Tbo-Filgrastim (Granix -) 480 mcg SQ DAILY [facility] Last Admin: 12/15/17 20:51 Dose: 480 mcg Valacyclovir HCl (Valtrex -) 1,000 mg PO BID [facility] Last Admin: 12/15/17 21:13 Dose: 1,000 mg Voriconazole (Vfend (Restricted To Id)) 200 mg PO BIDWM [facility] Last Admin: 12/15/17 18:20 Dose: 200 mg - Objective Vital Signs: Vital Signs Temperature 100.3 F H 12/16/17 06:57 Pulse Rate 99 H 12/16/17 06:57 Respiratory Rate 18 12/16/17 06:57 Blood Pressure 114/83 12/16/17 06:57 O2 Sat by Pulse Oximetry (%) 97 12/15/17 21:00 Labs: INR, PTT INR 1.19 (0.82-1.09) H 12/12/17 10:40 Assessment/Plan IMP: AML-- on no treatment, on periodic PRBCs CAD s/p CABG, chronic angina 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 Cultures, abx as per PMD 2. Hold all AV harjeet agents 3. DNR/DNI: d/c TELE coverage for dr Irene
[2017-12-16 08:59] LABS: CHLORIDE 106 mmol/L (98-107); POTASSIUM 3.4 mmol/L (3.5-5.1); SODIUM 139 mmol/L (136-145)
[2017-12-16] MEDS ORDERED: PT OWN MED DRAWER 7, Y5N ONE ×3 (09:07→21:08)
[2017-12-16 09:12] LABS: ANION GAP 12 (8-16); BLOOD UREA NITROGEN 34 mg/dL (7-18); CALCIUM 7.9 mg/dL (8.5-10.1); CO2 21 mmol/L (21-32); CREATININE 1.6 mg/dL (0.7-1.3); GLUCOSE,RANDOM 88 mg/dL (74-106)
[2017-12-16] MEDS: CEFEPIME 2 GM in DEXTROSE 5%-WATER 100 ML IVPB SCH ×2 (09:20→21:34)
[2017-12-16] MEDS: ACETAMINOPHEN 325 MG TABLET (FP) PO PRN (09:21)
[2017-12-16] MEDS: ASPIRIN COATED 81 MG TABLET.EC PO SCH (09:21)
[2017-12-16] MEDS: ALLOPURINOL 100 MG TABLET (FP) PO SCH (09:21)
[2017-12-16] MEDS: valACYclovir HCL 500 MG TABLET (FP) PO SCH ×2 (09:22→21:34)
[2017-12-16] MEDS: RANITIDINE HCL 150 MG TABLET (FP) PO SCH ×2 (09:22→21:35)
[2017-12-16] MEDS: VORICONAZOLE 200 MG TABLET (RESTRICTED TO ID) PO SCH ×2 (09:23→16:45)
[2017-12-16] MEDS: FERROUS SO4 325 MG TABLET (FP) PO SCH ×2 (09:23→21:35)
[2017-12-16] MEDS: TBO-FILGRASTIM 480 MCG/0.8 ML DISP.SYRIN SQ SCH (09:26)
[2017-12-16] MEDS ORDERED: POTASSIUM CHLORIDE TABS 20 MEQ TABLET.ER (FP) PO ONE (09:30)
[2017-12-16 10:48] LABS: ANISOCYTOSIS 1+; SMUDGE CELLS FEW
[2017-12-16 10:49] LABS: PLATELET ESTIMATE ADEQUATE
--- NOTE | 2017-12-16 11:27 | PN ---
Progress Note (short form) - Note Progress Note: PULMONARY Breathing worse today. +nonproductive cough without wheezing. Last Vital Signs Temp Pulse Resp BP Pulse Ox 100.3 F H 99 H 18 114/83 97 12/16/17 06:57 12/16/17 06:57 12/16/17 06:57 12/16/17 06:57 12/15/17 21:00 Intake & Output 12/13/17 12/14/17 12/15/17 12/16/17 23:59 23:59 23:59 23:59 Intake Total 30 1134 1877 Balance 30 1134 1877 Weight 81.647 kg Gen: NAD at rest Heart: RRR Lung: decreased breath sounds at the bases Abd: soft, nontender Ext: no edema CBC, BMP 12/16/17 07:19 12/16/17 07:19 Active Medications Acetaminophen (Tylenol -) 650 mg PO Q4H PRN PRN Reason: FEVER Last Admin: 12/16/17 09:21 Dose: 650 mg Albuterol/Ipratropium (Duoneb -) 1 amp NEB Q4H PRN PRN Reason: SHORTNESS OF BREATH Allopurinol (Zyloprim -) 200 mg PO DAILY [facility] Last Admin: 12/16/17 09:21 Dose: 200 mg Aspirin (Ecotrin -) 81 mg PO DAILY [facility] Last Admin: 12/16/17 09:21 Dose: 81 mg Atorvastatin Calcium (Lipitor -) 40 mg PO HS [facility] Last Admin: 12/15/17 21:13 Dose: 40 mg Ferrous Sulfate (Feosol -) 325 mg PO BID [facility] Last Admin: 12/16/17 09:23 Dose: 325 mg Cefepime HCl 2 gm/ Dextrose 100 mls @ 200 mls/hr IVPB BID [facility]; Protocol Last Admin: 12/16/17 09:20 Dose: 200 mls/hr Ranitidine HCl (Zantac -) 150 mg PO BID [facility] Last Admin: 12/16/17 09:22 Dose: 150 mg Tbo-Filgrastim (Granix -) 480 mcg SQ DAILY [facility] Last Admin: 12/16/17 09:26 Dose: 480 mcg Valacyclovir HCl (Valtrex -) 1,000 mg PO BID [facility] Last Admin: 12/16/17 09:22 Dose: 1,000 mg Voriconazole (Vfend (Restricted To Id)) 200 mg PO BIDWM [facility] Last Admin: 12/16/17 09:23 Dose: 200 mg A/P Neutropenic Sepsis Acute Kidney Injury AML h/o Lung Ca Lung Nodules CAD s/p CABG LV Diastolic Dysfunction HTN - continue antibiotics per ID - f/u cultures - will repeat CXR today - O2 to keep SpO2 >90% - inhaled bronchodilators - will need outpt f/u of lung nodules - DVT prophylaxis
[2017-12-16 14:40] LABS: ANION GAP 10 (8-16); BLOOD UREA NITROGEN 37 mg/dL (7-18); CALCIUM 7.8 mg/dL (8.5-10.1); CHLORIDE 106 mmol/L (98-107); CO2 23 mmol/L (21-32); CREATININE 1.8 mg/dL (0.7-1.3); GLUCOSE,RANDOM 135 mg/dL (74-106); MAGNESIUM 2.1 mg/dL (1.8-2.4); POTASSIUM 3.6 mmol/L (3.5-5.1); SODIUM 139 mmol/L (136-145)
--- NOTE | 2017-12-16 15:01 | PN ---
Progress Note (short form) - Note Progress Note: NAD remains neutropenic more alert today Vital Signs Period Temp Pulse Resp BP Sys/Alvares Pulse Ox Last 24 Hr 98.4 F-100.3 F 80-100 16-20 114-135/54-83 96-97 sore on lip is dry cor-rrr lungs clear abd soft,nt ext no edema CBC, BMP 12/16/17 07:19 12/16/17 14:05 Microbiology 12/12/17 12:01 Blood - Peripheral Venous Blood Culture - Preliminary NO GROWTH OBTAINED AFTER 96 HOURS, INCUBATION TO CONTINUE FOR 1 DAYS. 12/12/17 10:40 Blood - Peripheral Venous Blood Culture - Preliminary NO GROWTH OBTAINED AFTER 96 HOURS, INCUBATION TO CONTINUE FOR 1 DAYS. 12/12/17 13:40 Urine - Urine Clean Catch Urine Culture - Final NO GROWTH OBTAINED 12/12/17 16:40 Nasopharyngeal Swab Influenza Types A,B Antigen - Final 12/12/17 16:40 Nasopharyngeal Swab - Final Laboratory Tests 12/16/17 07:19 Random Vancomycin 16.116 a/p neutropenic fevers- continue cefepime, cultures negative to date- ?secondary to AML ct scans noted- no clear infiltrates received vancomycin yesterday, check trough-therapeutic, will repeat trough in am a/p transfusion oral HSV-lip blister- valtrex day 32 on antifungal prophylaxis maximo- renal f/u AML- noted, treatment declined by patient patient is DNR- forms signed in ER palliative care please reculture if patient has further fever
--- NOTE | 2017-12-16 16:24 | PN ---
Progress Note (short form) - Note Progress Note: Pt seen and examined . events noted Pt continues to be SOB. +cough But more awake than yesterday Blister a bit better. O/E: General: mild distress HEENT: NCAT Cor: RRR Lungs:poor inspiratory effort LE: No CCE Last Vital Signs Temp Pulse Resp BP Pulse Ox 99.4 F 94 H 20 135/63 96 12/16/17 13:44 12/16/17 13:44 12/16/17 13:44 12/16/17 13:44 12/16/17 11:41 CBC, BMP 12/16/17 07:19 12/16/17 14:05 Current Medications Generic Name Dose Route Start Last Admin Trade Name Freq PRN Reason Stop Dose Admin Acetaminophen 650 mg 12/14/17 09:42 12/16/17 09:21 Tylenol - PO 650 mg Q4H PRN Administration FEVER Albuterol/Ipratropium 1 amp 12/14/17 11:51 Duoneb - NEB Q4H PRN SHORTNESS OF BREATH Allopurinol 200 mg 12/13/17 10:00 12/16/17 09:21 Zyloprim - PO 200 mg DAILY [facility] Administration Aspirin 81 mg 12/13/17 10:00 12/16/17 09:21 Ecotrin - PO 81 mg DAILY [facility] Administration Atorvastatin Calcium 40 mg 12/12/17 22:00 12/15/17 21:13 Lipitor - PO 40 mg HS [facility] Administration Ferrous Sulfate 325 mg 12/12/17 22:00 12/16/17 09:23 Feosol - PO 325 mg BID [facility] Administration Cefepime HCl 2 gm/ Dextrose 100 mls @ 200 mls/hr 12/15/17 22:00 12/16/17 09: 20 IVPB 200 mls/hr BID [facility] Administration Protocol Ranitidine HCl 150 mg 12/12/17 22:00 12/16/17 09:22 Zantac - PO 150 mg BID [facility] Administration Tbo-Filgrastim 480 mcg 12/15/17 20:00 12/16/17 09:26 Granix - SQ 480 mcg DAILY [facility] Administration Valacyclovir HCl 1,000 mg 12/15/17 12:30 12/16/17 09:22 Valtrex - PO 1,000 mg BID [facility] Administration Voriconazole 200 mg 12/14/17 17:30 12/16/17 09:23 Vfend (Restricted To Id) PO 200 mg BIDWM [facility] Administration AML-- on no treatment (per pts choice)-- flow with 40% blasts . Neutropenic sepsis: on broad spectrum including anti-fungal/viral--?leukemia induced -- febrile-- repeat cultures ordered SOB: Multifactorial --pulm f/u noted Supportive care with regular transfusion threshold. Neupogen -- Repeat Blood work ordered TLS ppx: c/w allopurinol OI ppx: Presently on anti-bacterial, fungal , viral NUBIA: resolving poor PS/Guarded prognosis Palliative care consult- d/w pt
--- NOTE | 2017-12-16 16:45 | PN ---
Physical Exam: SUBJECTIVE: Patient seen and examined. He complains of pain from an ingrown left 1st toenail. OBJECTIVE: Vital Signs Period Temp Pulse Resp BP Sys/Alvares Pulse Ox Last 24 Hr 98.4 F-100.3 F 80-100 16-20 114-135/54-83 96-97 GENERAL: The patient is awake, alert, and fully oriented. Mild respiratory distress. LUNGS: Breath sounds equal, clear to auscultation bilaterally, no wheezes, no crackles, no accessory muscle use. HEART: Regular rate and rhythm, S1, S2 without murmur, rub or gallop. ABDOMEN: Soft, nontender, nondistended, normoactive bowel sounds, no guarding, no rebound, no hepatosplenomegaly, no masses. EXTREMITIES: 2+ pulses, warm, well-perfused, no edema, left 1st toe with swelling and tenderness of lateral aspect of nail Laboratory Results - last 24 hr 12/16/17 12/16/17 12/16/17 07:19 07:19 07:19 WBC 5.8 RBC 2.95 L Hgb 9.6 L Hct 27.7 L MCV 93.7 MCH 32.6 MCHC 34.8 RDW 21.9 H Plt Count 169 MPV 6.5 L Neutrophils % No Result Required. Neutrophils % (Manual) 4.0 L Lymphocytes % No Result Required. Lymphocytes % (Manual) 60.0 H D Monocytes % (Manual) 22 H Nucleated RBC % 0 Smudge Cells Few Other Cell Type 6 Hypochromia 1+ Platelet Estimate Adequate Platelet Comment No clumping noted Anisocytosis 1+ Sodium 139 Potassium 3.4 L Chloride 106 Carbon Dioxide 21 Anion Gap 12 BUN 34 H Creatinine 1.6 H Random Glucose 88 Calcium 7.9 L Magnesium Random Vancomycin 16.116 12/16/17 14:05 WBC RBC Hgb Hct MCV MCH MCHC RDW Plt Count MPV Neutrophils % Neutrophils % (Manual) Lymphocytes % Lymphocytes % (Manual) Monocytes % (Manual) Nucleated RBC % Smudge Cells Other Cell Type Hypochromia Platelet Estimate Platelet Comment Anisocytosis Sodium 139 Potassium 3.6 Chloride 106 Carbon Dioxide 23 Anion Gap 10 BUN 37 H Creatinine 1.8 H Random Glucose 135 H D Calcium 7.8 L Magnesium 2.1 Random Vancomycin Active Medications Generic Name Dose Route Start Last Admin Trade Name Freq PRN Reason Stop Dose Admin Acetaminophen 650 mg 12/14/17 09:42 12/16/17 09:21 Tylenol - PO 650 mg Q4H PRN Administration FEVER Albuterol/Ipratropium 1 amp 12/14/17 11:51 Duoneb - NEB Q4H PRN SHORTNESS OF BREATH Allopurinol 200 mg 12/13/17 10:00 12/16/17 09:21 Zyloprim - PO 200 mg DAILY [facility] Administration Aspirin 81 mg 12/13/17 10:00 12/16/17 09:21 Ecotrin - PO 81 mg DAILY [facility] Administration Atorvastatin Calcium 40 mg 12/12/17 22:00 12/15/17 21:13 Lipitor - PO 40 mg HS [facility] Administration Ferrous Sulfate 325 mg 12/12/17 22:00 12/16/17 09:23 Feosol - PO 325 mg BID [facility] Administration Cefepime HCl 2 gm/ Dextrose 100 mls @ 200 mls/hr 12/15/17 22:00 12/16/17 09: 20 IVPB 200 mls/hr BID [facility] Administration Protocol Ranitidine HCl 150 mg 12/12/17 22:00 12/16/17 09:22 Zantac - PO 150 mg BID [facility] Administration Tbo-Filgrastim 480 mcg 12/15/17 20:00 12/16/17 09:26 Granix - SQ 480 mcg DAILY [facility] Administration Valacyclovir HCl 1,000 mg 12/15/17 12:30 12/16/17 09:22 Valtrex - PO 1,000 mg BID [facility] Administration Voriconazole 200 mg 12/14/17 17:30 12/16/17 09:23 Vfend (Restricted To Id) PO 200 mg BIDWM [facility] Administration ASSESSMENT/PLAN: 1. Neutropenic fever - Had temp 100.3 this morning - Blood cultures negative after 96 hrs - Urine culture negative - On Cefepime, Vfend - Vancomycin x 2 doses given 12/14-12/15 - level 16 today - Repeat cultures if febrile 2. 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 Acute kidney injury - Improving 4. Stage 3 CKD 5. AML - Patient has refused treatment 6. Neutropenia, anemia - ANC 232 - Transfused 2 units PRBCs - Continue ferrous sulfate - Neutropenic precautions 7. Ingrown nail, left 1st toe - Podiatry consult 8. CAD, history of CABG - Continue aspirin, Lipitor 9. Hypokalemia - Improved 10. Hyponatremia, mild - Improved 11. History of lung cancer, resection 12. History of gout - Continue Allopurinol 13. HTN - On Lasix 14. Chronic diastolic heart failure - Continue Lasix Visit type - Emergency Visit Emergency Visit: Yes ED Registration Date: 12/12/17 Care time: The patient presented to the Emergency Department on the above date and was hospitalized for further evaluation of their emergent condition. - New Patient This patient is new to me today: No - Critical Care Critical Care patient: No - Discharge Referral Referred to [facility] No
[2017-12-16 17:57] LABS: HEMATOCRIT 26.4 % (35.4-49); HEMOGLOBIN 9.1 GM/dL (11.7-16.9); MCH 32.2 pg (25.7-33.7); MCHC 34.6 g/dl (32.0-35.9); MEAN CELL VOLUME 93.3 fl (80-96); MEAN PLT VOLUME 6.8 fl (7.5-11.1); PLATELET COUNT 162 K/MM3 (134-434); RBC 2.83 M/mm3 (4.00-5.60); RDW 21.8 % (11.9-15.9); WHITE BLOOD COUNT 5.7 K/mm3 (4.0-10.0)
[2017-12-16 17:58] LABS: ADD RBC MORPHOLOGY YES
[2017-12-16 18:11] LABS: ALBUMIN 2.3 g/dl (3.4-5.0); ANION GAP 10 (8-16); BILIRUBIN,TOTAL 0.5 mg/dL (0.2-1.0); BLOOD UREA NITROGEN 37 mg/dL (7-18); CALCIUM 7.6 mg/dL (8.5-10.1); CHLORIDE 106 mmol/L (98-107); CO2 23 mmol/L (21-32); CREATININE 1.6 mg/dL (0.7-1.3); GLUCOSE,RANDOM 117 mg/dL (74-106); LDH 281 U/L (87-241); POTASSIUM 3.6 mmol/L (3.5-5.1); SGOT/AST 59 U/L (15-37); SGPT/ALT 47 U/L (12-78); SODIUM 139 mmol/L (136-145); URIC ACID 6.9 mg/dL (2.6-7.2)
[2017-12-16 18:12] LABS: ALK PHOS 100 U/L (45-117)
--- NOTE | 2017-12-16 20:54 | PN ---
Progress Note (short form) - Note Progress Note: covering Problems -NUBIA/Prerenal -history of hyponatremia -anemia -leukopenia -hx lung cancer -hx melanoma -CAD -gout -fever -NUBIA -neutropenic fever Current Medications Acetaminophen (Tylenol -) 650 mg PO Q4H PRN PRN Reason: FEVER Last Admin: 12/16/17 09:21 Dose: 650 mg Albuterol/Ipratropium (Duoneb -) 1 amp NEB Q4H PRN PRN Reason: SHORTNESS OF BREATH Allopurinol (Zyloprim -) 200 mg PO DAILY [facility] Last Admin: 12/16/17 09:21 Dose: 200 mg Aspirin (Ecotrin -) 81 mg PO DAILY [facility] Last Admin: 12/16/17 09:21 Dose: 81 mg Atorvastatin Calcium (Lipitor -) 40 mg PO HS [facility] Last Admin: 12/15/17 21:13 Dose: 40 mg Ferrous Sulfate (Feosol -) 325 mg PO BID [facility] Last Admin: 12/16/17 09:23 Dose: 325 mg Cefepime HCl 2 gm/ Dextrose 100 mls @ 200 mls/hr IVPB BID [facility]; Protocol Last Admin: 12/16/17 09:20 Dose: 200 mls/hr Ranitidine HCl (Zantac -) 150 mg PO BID [facility] Last Admin: 12/16/17 09:22 Dose: 150 mg Tbo-Filgrastim (Granix -) 480 mcg SQ DAILY [facility] Last Admin: 12/16/17 09:26 Dose: 480 mcg Valacyclovir HCl (Valtrex -) 1,000 mg PO BID [facility] Last Admin: 12/16/17 09:22 Dose: 1,000 mg Voriconazole (Vfend (Restricted To Id)) 200 mg PO BIDWM [facility] Last Admin: 12/16/17 16:45 Dose: 200 mg Last Vital Signs Temp Pulse Resp BP Pulse Ox 98.6 F 86 18 127/64 96 12/16/17 17:09 12/16/17 17:09 12/16/17 17:09 12/16/17 17:09 12/16/17 11:41 lungs clear Heart reg Abd soft Ext no edema CBC, BMP 12/16/17 17:10 12/16/17 17:10 Plan - renal function is improving - decrease rate of fluids - likely NUBIA from prerenal disease - repeat labs in am - abx per ID - transfuse as needed - discussed with pt and family - will follow
[2017-12-16] MEDS: ATORVASTATIN CA 40 MG TABLET (FP) PO SCH (21:35)
[2017-12-17 06:33] LABS: HEMATOCRIT 24.9 % (35.4-49); HEMOGLOBIN 8.6 GM/dL (11.7-16.9); MCH 33.2 pg (25.7-33.7); MCHC 34.8 g/dl (32.0-35.9); MEAN CELL VOLUME 95.4 fl (80-96); MEAN PLT VOLUME 6.8 fl (7.5-11.1); PLATELET COUNT 141 K/MM3 (134-434); RDW 21.9 % (11.9-15.9); WHITE BLOOD COUNT 5.4 K/mm3 (4.0-10.0)
[2017-12-17] MEDS: ACETAMINOPHEN 325 MG TABLET (FP) PO PRN (06:41)
[2017-12-17 07:16] LABS: CHLORIDE 108 mmol/L (98-107); POTASSIUM 3.8 mmol/L (3.5-5.1); SODIUM 139 mmol/L (136-145)
[2017-12-17 07:33] LABS: ALBUMIN 2.2 g/dl (3.4-5.0); ALK PHOS 94 U/L (45-117); ANION GAP 8 (8-16); BILIRUBIN,TOTAL 0.7 mg/dL (0.2-1.0); BLOOD UREA NITROGEN 36 mg/dL (7-18); CALCIUM 7.6 mg/dL (8.5-10.1); CO2 23 mmol/L (21-32); CREATININE 1.6 mg/dL (0.7-1.3); GLUCOSE,RANDOM 124 mg/dL (74-106); LDH 254 U/L (87-241); SGOT/AST 42 U/L (15-37); SGPT/ALT 44 U/L (12-78); TOT PROT 5.8 g/dl (6.4-8.2); URIC ACID 6.8 mg/dL (2.6-7.2)
--- NOTE | 2017-12-17 08:41 | PN ---
Progress Note, Physician History of Present Illness: 82 year old male, with a significant past medical history of lung CA (s/p nodules), melanoma, AML, triple bypass, and hypertension, who presents to the emergency department s/p multiple mechanical falls over the past 2 days. The patient reports associated weakness and shortness of breath, but denies any chest pain, diaphoresis, palpitations, or lower extremity edema. patient reports nausea and one episode of nonbloody/nonbilious vomiting, but denies any abdominal pain, diarrhea, or constipation. He reports some dizziness and thinks he passed out twice, but denies any fever, chills, cough, headache, or lightheadedness. He denies any dysuria, hematuria, frequency, or urgency. He denies any recent travel or sick contacts. - Current Medication List Current Medications: Active Medications Acetaminophen (Tylenol -) 650 mg PO Q4H PRN PRN Reason: FEVER Last Admin: 12/17/17 06:41 Dose: 650 mg Albuterol/Ipratropium (Duoneb -) 1 amp NEB Q4H PRN PRN Reason: SHORTNESS OF BREATH Allopurinol (Zyloprim -) 200 mg PO DAILY [facility] Last Admin: 12/16/17 09:21 Dose: 200 mg Aspirin (Ecotrin -) 81 mg PO DAILY [facility] Last Admin: 12/16/17 09:21 Dose: 81 mg Atorvastatin Calcium (Lipitor -) 40 mg PO HS [facility] Last Admin: 12/16/17 21:35 Dose: 40 mg Ferrous Sulfate (Feosol -) 325 mg PO BID [facility] Last Admin: 12/16/17 21:35 Dose: 325 mg Cefepime HCl 2 gm/ Dextrose 100 mls @ 200 mls/hr IVPB BID [facility]; Protocol Last Admin: 12/16/17 21:34 Dose: 200 mls/hr Ranitidine HCl (Zantac -) 150 mg PO BID [facility] Last Admin: 12/16/17 21:35 Dose: 150 mg Tbo-Filgrastim (Granix -) 480 mcg SQ DAILY [facility] Last Admin: 12/16/17 09:26 Dose: 480 mcg Valacyclovir HCl (Valtrex -) 1,000 mg PO BID [facility] Last Admin: 12/16/17 21:34 Dose: 1,000 mg Voriconazole (Vfend (Restricted To Id)) 200 mg PO BIDWM [facility] Last Admin: 12/16/17 16:45 Dose: 200 mg - Objective Vital Signs: Vital Signs Temperature 101.2 F H 12/17/17 06:55 Pulse Rate 92 H 12/17/17 06:55 Respiratory Rate 18 12/17/17 06:55 Blood Pressure 123/62 12/17/17 06:55 O2 Sat by Pulse Oximetry (%) 97 12/16/17 21:00 Eyes: Yes: WNL, Conjunctiva Clear, EOM Intact HENT: Yes: WNL, Atraumatic, Normocephalic Neck: Yes: WNL, Supple, Trachea Midline Cardiovascular: Yes: WNL, Regular Rate and Rhythm Respiratory: Yes: WNL, Regular, CTA Bilaterally Gastrointestinal: Yes: WNL, Normal Bowel Sounds Genitourinary: Yes: WNL Musculoskeletal: Yes: WNL Extremities: Yes: WNL Edema: Yes Integumentary: Yes: WNL ...Motor Strength: WNL Psychiatric: Yes: WNL Labs: CBC, BMP 12/17/17 06:00 12/17/17 06:00 INR, PTT INR 1.19 (0.82-1.09) H 12/12/17 10:40 Assessment/Plan IMP: 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 Cultures, abx as per PMD 2. Hold all AV harjeet agents 3. DNR/DNI: d/c TELE coverage for dr Irene
--- NOTE | 2017-12-17 09:16 | PN ---
Progress Note, Physician Chief Complaint: AWAKE ALERT ON NOTES AND EVENTS REVIEWED DENIES CHEST PAIN OR SOB +APPETITE + FEVER - Current Medication List Current Medications: Active Medications Acetaminophen (Tylenol -) 650 mg PO Q4H PRN PRN Reason: FEVER Last Admin: 12/17/17 06:41 Dose: 650 mg Albuterol/Ipratropium (Duoneb -) 1 amp NEB Q4H PRN PRN Reason: SHORTNESS OF BREATH Allopurinol (Zyloprim -) 200 mg PO DAILY [facility] Last Admin: 12/16/17 09:21 Dose: 200 mg Aspirin (Ecotrin -) 81 mg PO DAILY [facility] Last Admin: 12/16/17 09:21 Dose: 81 mg Atorvastatin Calcium (Lipitor -) 40 mg PO HS [facility] Last Admin: 12/16/17 21:35 Dose: 40 mg Ferrous Sulfate (Feosol -) 325 mg PO BID [facility] Last Admin: 12/16/17 21:35 Dose: 325 mg Cefepime HCl 2 gm/ Dextrose 100 mls @ 200 mls/hr IVPB BID [facility]; Protocol Last Admin: 12/16/17 21:34 Dose: 200 mls/hr Ranitidine HCl (Zantac -) 150 mg PO BID [facility] Last Admin: 12/16/17 21:35 Dose: 150 mg Tbo-Filgrastim (Granix -) 480 mcg SQ DAILY [facility] Last Admin: 12/16/17 09:26 Dose: 480 mcg Valacyclovir HCl (Valtrex -) 1,000 mg PO BID [facility] Last Admin: 12/16/17 21:34 Dose: 1,000 mg Voriconazole (Vfend (Restricted To Id)) 200 mg PO BIDWM [facility] Last Admin: 12/16/17 16:45 Dose: 200 mg - Objective Vital Signs: Vital Signs Temperature 101.2 F H 12/17/17 06:55 Pulse Rate 92 H 12/17/17 06:55 Respiratory Rate 18 12/17/17 08:54 Blood Pressure 123/62 12/17/17 06:55 O2 Sat by Pulse Oximetry (%) 97 12/17/17 08:56 Constitutional: Yes: Mild Distress Eyes: Yes: WNL HENT: Yes: WNL Neck: Yes: WNL Cardiovascular: Yes: WNL Respiratory: Yes: Diminished, On Nasal O2 Gastrointestinal: Yes: WNL Genitourinary: Yes: Incontinence Musculoskeletal: Yes: Muscle Weakness Extremities: Yes: WNL Edema: No Peripheral Pulses WNL: Yes Integumentary: Yes: WNL Wound/Incision: Yes: Clean/Dry Neurological: Yes: WNL ...Motor Strength: WNL Psychiatric: Yes: WNL Labs: CBC, BMP 12/17/17 06:00 12/17/17 06:00 INR, PTT INR 1.19 (0.82-1.09) H 12/12/17 10:40 Problem List - Problems (1) Acute kidney injury Code(s): N17.9 - ACUTE KIDNEY FAILURE, UNSPECIFIED (2) Fever Code(s): R50.9 - FEVER, UNSPECIFIED Qualifiers: Fever type: due to other condition Qualified Code(s): R50.81 - Fever presenting with conditions classified elsewhere (3) Neutropenia Code(s): D70.9 - NEUTROPENIA, UNSPECIFIED (4) Sepsis Code(s): A41.9 - SEPSIS, UNSPECIFIED ORGANISM (5) AML (acute myeloblastic leukemia) Code(s): C92.00 - ACUTE MYELOBLASTIC LEUKEMIA, NOT HAVING ACHIEVED REMISSION Qualifiers: Leukemia Active/Remission status: without remission Qualified Code(s): C92.00 - Acute myeloblastic leukemia, not having achieved remission (6) Anemia Code(s): D64.9 - ANEMIA, UNSPECIFIED Qualifiers: Anemia type: unspecified type Qualified Code(s): D64.9 - Anemia, unspecified (7) Chronic diastolic (congestive) heart failure Code(s): I50.32 - CHRONIC DIASTOLIC (CONGESTIVE) HEART FAILURE (8) Hx of CABG Code(s): Z95.1 - PRESENCE OF AORTOCORONARY BYPASS GRAFT (9) Weakness generalized Code(s): R53.1 - WEAKNESS Assessment/Plan NEUTROPENIC FEVER ON IV ABX CULTURES PENDING ID/ONCOLOGY FOLLOW UP APPRECIATED CXR PENDING PULM F/U DVT PROPHYLAXIS STD'S OOB TO CHAIR WITH ASSIST
[2017-12-17] MEDS ORDERED: VANCOMYCIN 1 GM PREMIX - 1 GM/200 ML BAG IVPB ONE (09:44)
[2017-12-17] MEDS: ALLOPURINOL 100 MG TABLET (FP) PO SCH (09:51)
[2017-12-17] MEDS: valACYclovir HCL 500 MG TABLET (FP) PO SCH ×2 (09:51→21:55)
[2017-12-17] MEDS: FERROUS SO4 325 MG TABLET (FP) PO SCH ×2 (09:51→21:55)
[2017-12-17] MEDS: RANITIDINE HCL 150 MG TABLET (FP) PO SCH ×2 (09:51→21:55)
[2017-12-17] MEDS: ASPIRIN COATED 81 MG TABLET.EC PO SCH (09:51)
--- NOTE | 2017-12-17 09:51 | PN ---
Progress Note (short form) - Note Progress Note: NAD remains neutropenic alert, no complailnts febile again this am nontoxic appearing blood cultures sent Vital Signs Period Temp Pulse Resp BP Sys/Alvares Pulse Ox Last 24 Hr 98.4 F-101.2 F 86-100 18-20 123-138/56-64 96-97 cor-rrr lungs clear abd soft,nt ext no edema cxray no infiltrate ct scans unrevealing Microbiology 12/12/17 12:01 Blood - Peripheral Venous Blood Culture - Preliminary NO GROWTH OBTAINED AFTER 96 HOURS, INCUBATION TO CONTINUE FOR 1 DAYS. 12/12/17 10:40 Blood - Peripheral Venous Blood Culture - Preliminary NO GROWTH OBTAINED AFTER 96 HOURS, INCUBATION TO CONTINUE FOR 1 DAYS. 12/12/17 13:40 Urine - Urine Clean Catch Urine Culture - Final NO GROWTH OBTAINED 12/12/17 16:40 Nasopharyngeal Swab Influenza Types A,B Antigen - Final 12/12/17 16:40 Nasopharyngeal Swab - Final Laboratory Tests 12/16/17 07:19 Random Vancomycin 16.116 CBC, BMP 12/17/17 06:00 12/17/17 06:00 a/p neutropenic fevers- continue cefepime, cultures negative to date- ?secondary to AML, 40% blasts add empiric flagyl- anaerobic coverage, redose vancomycin ct scans noted- no clear infiltrat s/p transfusion oral HSV-lip blister- on valtrex on antifungal prophylaxis maximo- renal f/u AML- noted, treatment declined by patient patient is DNR- forms signed in ER palliative care
[2017-12-17] MEDS: VORICONAZOLE 200 MG TABLET (RESTRICTED TO ID) PO SCH ×2 (09:52→17:20)
[2017-12-17] MEDS: MULTIVITAMINS (DAILY MVI) TABLET (FP) PO SCH (09:53)
[2017-12-17] MEDS: CEFEPIME 2 GM in DEXTROSE 5%-WATER 100 ML IVPB SCH ×2 (09:53→21:55)
[2017-12-17] MEDS: TBO-FILGRASTIM 480 MCG/0.8 ML DISP.SYRIN SQ SCH (09:55)
--- NOTE | 2017-12-17 10:45 | PN ---
Progress Note (short form) - Note Progress Note: PULMONARY Breathing better today. +nonproductive cough without wheezing. CXR yesterday without acute findings. Last Vital Signs Temp Pulse Resp BP Pulse Ox 101.2 F H 92 H 18 123/62 97 12/17/17 06:55 12/17/17 06:55 12/17/17 08:54 12/17/17 06:55 12/17/17 08:56 Gen: NAD at rest Heart: RRR Lung: decreased breath sounds at the bases Abd: soft, nontender Ext: no edema CBC, BMP 12/17/17 06:00 12/17/17 06:00 Active Medications Acetaminophen (Tylenol -) 650 mg PO Q4H PRN PRN Reason: FEVER Last Admin: 12/17/17 06:41 Dose: 650 mg Albuterol/Ipratropium (Duoneb -) 1 amp NEB Q4H PRN PRN Reason: SHORTNESS OF BREATH Allopurinol (Zyloprim -) 200 mg PO DAILY [facility] Last Admin: 12/17/17 09:51 Dose: 200 mg Amino Acids (Prosource No Carb Liquid Pkt) 30 ml PO BID@0800,1730 [facility] Aspirin (Ecotrin -) 81 mg PO DAILY [facility] Last Admin: 12/17/17 09:51 Dose: 81 mg Atorvastatin Calcium (Lipitor -) 40 mg PO HS [facility] Last Admin: 12/16/17 21:35 Dose: 40 mg Ferrous Sulfate (Feosol -) 325 mg PO BID [facility] Last Admin: 12/17/17 09:51 Dose: 325 mg Cefepime HCl 2 gm/ Dextrose 100 mls @ 200 mls/hr IVPB BID [facility]; Protocol Last Admin: 12/17/17 09:53 Dose: 200 mls/hr Vancomycin HCl (Vancomycin 1 Gm Premix -) 1 gm in 200 mls @ 166.667 mls/hr IVPB ONCE ONE; Protocol Stop: 12/17/17 10:55 Metronidazole (Flagyl 500mg Premixed Ivpb -) 500 mg in 100 mls @ 100 mls/hr IVPB Q8H-IV [facility] Last Admin: 12/17/17 10:42 Dose: 100 mls/hr Multivitamins/Minerals/Vitamin C (Tab-A-Vit -) 1 tab PO DAILY [facility] Last Admin: 12/17/17 09:53 Dose: 1 tab Ranitidine HCl (Zantac -) 150 mg PO BID [facility] Last Admin: 12/17/17 09:51 Dose: 150 mg Tbo-Filgrastim (Granix -) 480 mcg SQ DAILY [facility] Last Admin: 12/17/17 09:55 Dose: 480 mcg Valacyclovir HCl (Valtrex -) 1,000 mg PO BID [facility] Last Admin: 12/17/17 09:51 Dose: 1,000 mg Voriconazole (Vfend (Restricted To Id)) 200 mg PO BIDWM [facility] Last Admin: 12/17/17 09:52 Dose: 200 mg A/P Neutropenic Sepsis Acute Kidney Injury AML h/o Lung Ca Lung Nodules CAD s/p CABG LV Diastolic Dysfunction HTN - continue antibiotics per ID - O2 to keep SpO2 >90% - inhaled bronchodilators - will need outpt f/u of lung nodules - DVT prophylaxis
[2017-12-17 11:41] LABS: PLATELET ESTIMATE SLT DECREASE; SMUDGE CELLS FEW
--- NOTE | 2017-12-17 11:54 | CONSULT ---
Consult - text type - Consultation Consultation Note: Patient seen in bed. VSS. Alert & oriented. Comlains of painful left big toe a few weeks vandana. nvsgi, +localized cellulitis left big toe, -drainage, +tender lateral border, unable to touch to to pain, -mal odor ingrown nail early abscess localized cellulitis As patient is to tender to touch will obtain consent and do nail procedure at bedside tomorrow using a local infiltrate for pain. Consent orered for I&D/ removal ingrown nail border left big toe. Will follow. Already on antibiotics as per ID.
[2017-12-17] MEDS ORDERED: LIDOCAINE HCL 1%, 10 MG/ML (20ML VIAL) NR ONE (11:56)
--- NOTE | 2017-12-17 12:59 | PN ---
Progress Note (short form) - Note Progress Note: Pt seen and examined . events noted Pt continues to be SOB. better today O/E: General: in no acute distress HEENT: NCAT Cor: RRR Lungs:poor inspiratory effort LE: No CCE Last Vital Signs Temp Pulse Resp BP Pulse Ox 101.2 F H 92 H 18 123/62 97 12/17/17 06:55 12/17/17 06:55 12/17/17 08:54 12/17/17 06:55 12/17/17 08:56 CBC, BMP 12/17/17 06:00 12/17/17 06:00 Current Medications Generic Name Dose Route Start Last Admin Trade Name Freq PRN Reason Stop Dose Admin Acetaminophen 650 mg 12/14/17 09:42 12/17/17 06:41 Tylenol - PO 650 mg Q4H PRN Administration FEVER Albuterol/Ipratropium 1 amp 12/14/17 11:51 Duoneb - NEB Q4H PRN SHORTNESS OF BREATH Allopurinol 200 mg 12/13/17 10:00 12/17/17 09:51 Zyloprim - PO 200 mg DAILY [facility] Administration Amino Acids 30 ml 12/17/17 17:30 Prosource No Carb Liquid Pkt PO BID@0800,1730 [facility] Aspirin 81 mg 12/13/17 10:00 12/17/17 09:51 Ecotrin - PO 81 mg DAILY [facility] Administration Atorvastatin Calcium 40 mg 12/12/17 22:00 12/16/17 21:35 Lipitor - PO 40 mg HS [facility] Administration Ferrous Sulfate 325 mg 12/12/17 22:00 12/17/17 09:51 Feosol - PO 325 mg BID [facility] Administration Cefepime HCl 2 gm/ Dextrose 100 mls @ 200 mls/hr 12/15/17 22:00 12/17/17 09: 53 IVPB 200 mls/hr BID [facility] Administration Protocol Metronidazole 500 mg in 100 mls @ 100 mls/hr 12/17/17 10:00 12/17/17 10:42 Flagyl 500mg Premixed Ivpb - IVPB 100 mls/hr Q8H-IV [facility] Administration Multivitamins/Minerals/Vitamin C 1 tab 12/17/17 10:00 12/17/17 09:53 Tab-A-Vit - PO 1 tab DAILY [facility] Administration Ranitidine HCl 150 mg 12/12/17 22:00 12/17/17 09:51 Zantac - PO 150 mg BID [facility] Administration Tbo-Filgrastim 480 mcg 12/15/17 20:00 12/17/17 09:55 Granix - SQ 480 mcg DAILY [facility] Administration Valacyclovir HCl 1,000 mg 12/15/17 12:30 12/17/17 09:51 Valtrex - PO 1,000 mg BID [facility] Administration Voriconazole 200 mg 12/14/17 17:30 12/17/17 09:52 Vfend (Restricted To Id) PO 200 mg BIDWM [facility] Administration AML-- on no treatment (per pts choice)-- flow with 40% blasts . Neutropenic sepsis: on broad spectrum including anti-fungal/viral--?leukemia induced ?toe with early abscess Supportive care with regular transfusion threshold. Neupogen -- c/w TLS ppx: c/w allopurinol OI ppx: Presently on anti-bacterial, fungal , viral NUBIA: resolving poor PS/Guarded prognosis Palliative care consult
[2017-12-17] MEDS: AMINO ACIDS/PROTEIN HYDROLYS 30 ML LIQUID.PKT PO SCH (17:17)
--- NOTE | 2017-12-17 20:19 | PN ---
Progress Note (short form) - Note Progress Note: covering Problems -NUBIA/Prerenal -history of hyponatremia -anemia -leukopenia -hx lung cancer -hx melanoma -CAD -gout -fever -NUBIA -neutropenic fever Current Medications Acetaminophen (Tylenol -) 650 mg PO Q4H PRN PRN Reason: FEVER Last Admin: 12/17/17 06:41 Dose: 650 mg Albuterol/Ipratropium (Duoneb -) 1 amp NEB Q4H PRN PRN Reason: SHORTNESS OF BREATH Allopurinol (Zyloprim -) 200 mg PO DAILY [facility] Last Admin: 12/17/17 09:51 Dose: 200 mg Amino Acids (Prosource No Carb Liquid Pkt) 30 ml PO BID@0800,1730 [facility] Last Admin: 12/17/17 17:17 Dose: 30 ml Aspirin (Ecotrin -) 81 mg PO DAILY [facility] Last Admin: 12/17/17 09:51 Dose: 81 mg Atorvastatin Calcium (Lipitor -) 40 mg PO HS [facility] Last Admin: 12/16/17 21:35 Dose: 40 mg Ferrous Sulfate (Feosol -) 325 mg PO BID [facility] Last Admin: 12/17/17 09:51 Dose: 325 mg Cefepime HCl 2 gm/ Dextrose 100 mls @ 200 mls/hr IVPB BID [facility]; Protocol Last Admin: 12/17/17 09:53 Dose: 200 mls/hr Metronidazole (Flagyl 500mg Premixed Ivpb -) 500 mg in 100 mls @ 100 mls/hr IVPB Q8H-IV [facility] Last Admin: 12/17/17 17:19 Dose: 100 mls/hr Lidocaine HCl (Xylocaine 1%) 0 mg NR ONCE ONE Stop: 12/18/17 10:01 Multivitamins/Minerals/Vitamin C (Tab-A-Vit -) 1 tab PO DAILY [facility] Last Admin: 12/17/17 09:53 Dose: 1 tab Ranitidine HCl (Zantac -) 150 mg PO BID [facility] Last Admin: 12/17/17 09:51 Dose: 150 mg Tbo-Filgrastim (Granix -) 480 mcg SQ DAILY [facility] Last Admin: 12/17/17 09:55 Dose: 480 mcg Valacyclovir HCl (Valtrex -) 1,000 mg PO BID [facility] Last Admin: 12/17/17 09:51 Dose: 1,000 mg Voriconazole (Vfend (Restricted To Id)) 200 mg PO BIDWM [facility] Last Admin: 12/17/17 17:20 Dose: 200 mg Last Vital Signs Temp Pulse Resp BP Pulse Ox 98.4 F 86 16 137/60 97 12/17/17 13:25 12/17/17 13:25 12/17/17 13:25 12/17/17 13:25 12/17/17 08:56 lungs clear Heart reg Abd soft Ext no edema CBC, BMP 12/17/17 06:00 12/17/17 06:00 IMP- NUBIA not resolved Neutropenic sepsis CKD Plan- continue current management
[2017-12-17] MEDS ORDERED: PT OWN MED DRAWER 7, Y5N ONE (21:48)
[2017-12-17] MEDS: ATORVASTATIN CA 40 MG TABLET (FP) PO SCH (21:55)
[2017-12-18] MEDS: ACETAMINOPHEN 325 MG TABLET (FP) PO PRN (00:01)
[2017-12-18 07:49] LABS: HEMATOCRIT 23.4 % (35.4-49); MCH 32.7 pg (25.7-33.7); MCHC 34.3 g/dl (32.0-35.9); MEAN CELL VOLUME 95.4 fl (80-96); MEAN PLT VOLUME 7.4 fl (7.5-11.1); PLATELET COUNT 139 K/MM3 (134-434); RBC 2.45 M/mm3 (4.00-5.60); RDW 22.1 % (11.9-15.9); WHITE BLOOD COUNT 5.8 K/mm3 (4.0-10.0)
--- NOTE | 2017-12-18 08:02 | PN ---
Progress Note, Physician Chief Complaint: no acute distress Advanced Directive now noted in EMR order: DNR - Current Medication List Current Medications: Active Medications Acetaminophen (Tylenol -) 650 mg PO Q4H PRN PRN Reason: FEVER Last Admin: 12/18/17 00:01 Dose: 650 mg Albuterol/Ipratropium (Duoneb -) 1 amp NEB Q4H PRN PRN Reason: SHORTNESS OF BREATH Allopurinol (Zyloprim -) 200 mg PO DAILY [facility] Last Admin: 12/17/17 09:51 Dose: 200 mg Amino Acids (Prosource No Carb Liquid Pkt) 30 ml PO BID@0800,1730 [facility] Last Admin: 12/17/17 17:17 Dose: 30 ml Aspirin (Ecotrin -) 81 mg PO DAILY [facility] Last Admin: 12/17/17 09:51 Dose: 81 mg Atorvastatin Calcium (Lipitor -) 40 mg PO HS [facility] Last Admin: 12/17/17 21:55 Dose: 40 mg Ferrous Sulfate (Feosol -) 325 mg PO BID [facility] Last Admin: 12/17/17 21:55 Dose: 325 mg Cefepime HCl 2 gm/ Dextrose 100 mls @ 200 mls/hr IVPB BID [facility]; Protocol Last Admin: 12/17/17 21:55 Dose: 200 mls/hr Metronidazole (Flagyl 500mg Premixed Ivpb -) 500 mg in 100 mls @ 100 mls/hr IVPB Q8H-IV [facility] Last Admin: 12/18/17 00:59 Dose: 100 mls/hr Lidocaine HCl (Xylocaine 1%) 0 mg NR ONCE ONE Stop: 12/18/17 10:01 Multivitamins/Minerals/Vitamin C (Tab-A-Vit -) 1 tab PO DAILY [facility] Last Admin: 12/17/17 09:53 Dose: 1 tab Ranitidine HCl (Zantac -) 150 mg PO BID [facility] Last Admin: 12/17/17 21:55 Dose: 150 mg Tbo-Filgrastim (Granix -) 480 mcg SQ DAILY [facility] Last Admin: 12/17/17 09:55 Dose: 480 mcg Valacyclovir HCl (Valtrex -) 1,000 mg PO BID [facility] Last Admin: 12/17/17 21:55 Dose: 1,000 mg Voriconazole (Vfend (Restricted To Id)) 200 mg PO BIDWM [facility] Last Admin: 12/17/17 17:20 Dose: 200 mg - Objective Vital Signs: Vital Signs Temperature 98.8 F 12/18/17 06:00 Pulse Rate 84 12/18/17 06:00 Respiratory Rate 18 12/18/17 06:00 Blood Pressure 109/46 12/18/17 06:00 O2 Sat by Pulse Oximetry (%) 97 12/17/17 22:00 Constitutional: Yes: No Distress HENT: Yes: Atraumatic Cardiovascular: Yes: Regular Rate and Rhythm Respiratory: Yes: Rhonchi Gastrointestinal: Yes: Soft, Abdomen, Obese Edema: Yes Edema: LLE: 1+, RLE: 1+ Neurological: Yes: Alert, Oriented Labs: INR, PTT INR 1.19 (0.82-1.09) H 12/12/17 10:40 - ....Imaging EKG: Other (TELE: D/C'd) Assessment/Plan 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 Cultures, abx as per PMD 2. Hold all AV harjeet agents 3. DNR/DNI: d/c TELE
[2017-12-18 08:22] LABS: ANION GAP 8 (8-16); BLOOD UREA NITROGEN 38 mg/dL (7-18); CALCIUM 7.8 mg/dL (8.5-10.1); CHLORIDE 109 mmol/L (98-107); CO2 22 mmol/L (21-32); MAGNESIUM 2.2 mg/dL (1.8-2.4); POTASSIUM 3.7 mmol/L (3.5-5.1); SODIUM 139 mmol/L (136-145)
[2017-12-18 08:27] LABS: CREATININE 1.4 mg/dL (0.7-1.3); GLUCOSE,RANDOM 86 mg/dL (74-106); PHOSPHOROUS 3.2 mg/dL (2.5-4.9)
[2017-12-18] MEDS ORDERED: LIDOCAINE HCL 1%, 10 MG/ML (20ML VIAL) ONE (08:27)
[2017-12-18] MEDS: ALLOPURINOL 100 MG TABLET (FP) PO SCH (09:19)
[2017-12-18] MEDS: FERROUS SO4 325 MG TABLET (FP) PO SCH ×2 (09:19→21:34)
[2017-12-18] MEDS: MULTIVITAMINS (DAILY MVI) TABLET (FP) PO SCH (09:19)
[2017-12-18] MEDS: valACYclovir HCL 500 MG TABLET (FP) PO SCH ×2 (09:19→21:33)
[2017-12-18] MEDS: ASPIRIN COATED 81 MG TABLET.EC PO SCH (09:19)
[2017-12-18] MEDS: AMINO ACIDS/PROTEIN HYDROLYS 30 ML LIQUID.PKT PO SCH ×2 (09:19→17:27)
[2017-12-18] MEDS: RANITIDINE HCL 150 MG TABLET (FP) PO SCH ×2 (09:19→21:34)
[2017-12-18] MEDS: VORICONAZOLE 200 MG TABLET (RESTRICTED TO ID) PO SCH ×2 (09:20→17:27)
[2017-12-18] MEDS: CEFEPIME 2 GM in DEXTROSE 5%-WATER 100 ML IVPB SCH ×2 (09:22→21:34)
[2017-12-18] MEDS ORDERED: LIDOCAINE HCL 1%, 10 MG/ML (20ML VIAL) NR ONE (10:00)
--- NOTE | 2017-12-18 11:36 | PN ---
Progress Note, Physician History of Present Illness: PULMONARY ALERT,FEELING BETTER,LESS DYSPNEIC - Current Medication List Current Medications: Active Medications Acetaminophen (Tylenol -) 650 mg PO Q4H PRN PRN Reason: FEVER Last Admin: 12/18/17 00:01 Dose: 650 mg Albuterol/Ipratropium (Duoneb -) 1 amp NEB Q4H PRN PRN Reason: SHORTNESS OF BREATH Allopurinol (Zyloprim -) 200 mg PO DAILY [facility] Last Admin: 12/18/17 09:19 Dose: 200 mg Amino Acids (Prosource No Carb Liquid Pkt) 30 ml PO BID@0800,1730 [facility] Last Admin: 12/18/17 09:19 Dose: 30 ml Aspirin (Ecotrin -) 81 mg PO DAILY [facility] Last Admin: 12/18/17 09:19 Dose: 81 mg Atorvastatin Calcium (Lipitor -) 40 mg PO HS [facility] Last Admin: 12/17/17 21:55 Dose: 40 mg Ferrous Sulfate (Feosol -) 325 mg PO BID [facility] Last Admin: 12/18/17 09:19 Dose: 325 mg Cefepime HCl 2 gm/ Dextrose 100 mls @ 200 mls/hr IVPB BID [facility]; Protocol Last Admin: 12/18/17 09:22 Dose: 200 mls/hr Metronidazole (Flagyl 500mg Premixed Ivpb -) 500 mg in 100 mls @ 100 mls/hr IVPB Q8H-IV [facility] Last Admin: 12/18/17 09:20 Dose: 100 mls/hr Multivitamins/Minerals/Vitamin C (Tab-A-Vit -) 1 tab PO DAILY [facility] Last Admin: 12/18/17 09:19 Dose: 1 tab Ranitidine HCl (Zantac -) 150 mg PO BID [facility] Last Admin: 12/18/17 09:19 Dose: 150 mg Tbo-Filgrastim (Granix -) 480 mcg SQ DAILY [facility] Last Admin: 12/17/17 09:55 Dose: 480 mcg Valacyclovir HCl (Valtrex -) 1,000 mg PO BID [facility] Last Admin: 12/18/17 09:19 Dose: 1,000 mg Voriconazole (Vfend (Restricted To Id)) 200 mg PO BIDWM [facility] Last Admin: 12/18/17 09:20 Dose: 200 mg - Objective Vital Signs: Vital Signs Temperature 986 F H 12/18/17 09:00 Pulse Rate 88 12/18/17 09:00 Respiratory Rate 18 12/18/17 09:00 Blood Pressure 130/66 12/18/17 09:00 O2 Sat by Pulse Oximetry (%) 97 12/18/17 10:00 Constitutional: Yes: Well Nourished, Calm Eyes: Yes: WNL HENT: Yes: WNL Neck: Yes: WNL Cardiovascular: Yes: Regular Rate and Rhythm, S1, S2 Respiratory: Yes: Rales (BILATERAL RALES1/3 UP) Gastrointestinal: Yes: Normal Bowel Sounds, Soft Extremities: Yes: WNL Edema: No Labs: CBC, BMP 12/18/17 06:00 12/18/17 06:00 INR, PTT INR 1.19 (0.82-1.09) H 12/12/17 10:40 Problem List - Problems (1) Neutropenia Code(s): D70.9 - NEUTROPENIA, UNSPECIFIED (2) Fever Code(s): R50.9 - FEVER, UNSPECIFIED Qualifiers: Fever type: due to other condition Qualified Code(s): R50.81 - Fever presenting with conditions classified elsewhere (3) Sepsis Code(s): A41.9 - SEPSIS, UNSPECIFIED ORGANISM (4) AML (acute myeloblastic leukemia) Code(s): C92.00 - ACUTE MYELOBLASTIC LEUKEMIA, NOT HAVING ACHIEVED REMISSION Qualifiers: Leukemia Active/Remission status: without remission Qualified Code(s): C92.00 - Acute myeloblastic leukemia, not having achieved remission (5) Anemia Code(s): D64.9 - ANEMIA, UNSPECIFIED Qualifiers: Anemia type: unspecified type Qualified Code(s): D64.9 - Anemia, unspecified (6) Chronic diastolic (congestive) heart failure Code(s): I50.32 - CHRONIC DIASTOLIC (CONGESTIVE) HEART FAILURE (7) HLD (hyperlipidemia) Code(s): E78.5 - HYPERLIPIDEMIA, UNSPECIFIED (8) HTN (hypertension) Code(s): I10 - ESSENTIAL (PRIMARY) HYPERTENSION Qualifiers: Hypertension type: essential hypertension Qualified Code(s): I10 - Essential (primary) hypertension (9) Lung cancer Code(s): C34.90 - MALIGNANT NEOPLASM OF UNSP PART OF UNSP BRONCHUS OR LUNG Qualifiers: Laterality: unspecified laterality (10) Melanoma Code(s): C43.9 - MALIGNANT MELANOMA OF SKIN, UNSPECIFIED Qualifiers: Melanoma location: unspecified site Qualified Code(s): C43.9 - Malignant melanoma of skin, unspecified (11) Shortness of breath Code(s): R06.02 - SHORTNESS OF BREATH (12) Syncope Code(s): R55 - SYNCOPE AND COLLAPSE Qualifiers: Syncope type: unspecified Qualified Code(s): R55 - Syncope and collapse Assessment/Plan IMP NEUTROPENIC FEVER/SEPSIS AML ANEMIA SYNCOPE H/O MELANOMA H/O LUNG CA S/P RESECTION PULMONARY NODULE ?MALIGNANT ASHD S/P CABG ACUTE KIDNEY INJURY HTN DIASTOLIC HF PLAN ABX PER ID INHALED BRONCHODILATORS NORMAL TRANSFUSION THRESHOLD IVF MONITOR LYTES,RENAL FUNCTION,H+H,CBC SUPPLEMENTAL O2 OUTPATIENT F/U PULMONARY NODULE JACE HANSEN Problem List - Problems (1) Neutropenia Code(s): D70.9 - NEUTROPENIA, UNSPECIFIED (2) Fever Code(s): R50.9 - FEVER, UNSPECIFIED Qualifiers: Fever type: due to other condition Qualified Code(s): R50.81 - Fever presenting with conditions classified elsewhere (3) Sepsis Code(s): A41.9 - SEPSIS, UNSPECIFIED ORGANISM (4) AML (acute myeloblastic leukemia) Code(s): C92.00 - ACUTE MYELOBLASTIC LEUKEMIA, NOT HAVING ACHIEVED REMISSION Qualifiers: Leukemia Active/Remission status: without remission Qualified Code(s): C92.00 - Acute myeloblastic leukemia, not having achieved remission (5) Anemia Code(s): D64.9 - ANEMIA, UNSPECIFIED Qualifiers: Anemia type: unspecified type Qualified Code(s): D64.9 - Anemia, unspecified (6) Chronic diastolic (congestive) heart failure Code(s): I50.32 - CHRONIC DIASTOLIC (CONGESTIVE) HEART FAILURE (7) HLD (hyperlipidemia) Code(s): E78.5 - HYPERLIPIDEMIA, UNSPECIFIED (8) HTN (hypertension) Code(s): I10 - ESSENTIAL (PRIMARY) HYPERTENSION Qualifiers: Hypertension type: essential hypertension Qualified Code(s): I10 - Essential (primary) hypertension (9) Lung cancer Code(s): C34.90 - MALIGNANT NEOPLASM OF UNSP PART OF UNSP BRONCHUS OR LUNG Qualifiers: Laterality: unspecified laterality (10) Melanoma Code(s): C43.9 - MALIGNANT MELANOMA OF SKIN, UNSPECIFIED Qualifiers: Melanoma location: unspecified site Qualified Code(s): C43.9 - Malignant melanoma of skin, unspecified (11) Shortness of breath Code(s): R06.02 - SHORTNESS OF BREATH (12) Syncope Code(s): R55 - SYNCOPE AND COLLAPSE Qualifiers: Syncope type: unspecified Qualified Code(s): R55 - Syncope and collapse
[2017-12-18] MEDS: TBO-FILGRASTIM 480 MCG/0.8 ML DISP.SYRIN SQ SCH (12:09)
[2017-12-18 12:26] LABS: ANISOCYTOSIS 3+; MACROCYTOSIS 1+
[2017-12-18 12:27] LABS: OVALOCYTE 1+; TEAR DROP CELLS 1+
--- NOTE | 2017-12-18 14:32 | PN ---
Progress Note, Physician History of Present Illness: Pt seen and examined at bedside. He is awake and alert. He seems agitated today. - Current Medication List Current Medications: Active Medications Acetaminophen (Tylenol -) 650 mg PO Q4H PRN PRN Reason: FEVER Last Admin: 12/18/17 00:01 Dose: 650 mg Albuterol/Ipratropium (Duoneb -) 1 amp NEB Q4H PRN PRN Reason: SHORTNESS OF BREATH Allopurinol (Zyloprim -) 200 mg PO DAILY [facility] Last Admin: 12/18/17 09:19 Dose: 200 mg Amino Acids (Prosource No Carb Liquid Pkt) 30 ml PO BID@0800,1730 [facility] Last Admin: 12/18/17 09:19 Dose: 30 ml Aspirin (Ecotrin -) 81 mg PO DAILY [facility] Last Admin: 12/18/17 09:19 Dose: 81 mg Atorvastatin Calcium (Lipitor -) 40 mg PO HS [facility] Last Admin: 12/17/17 21:55 Dose: 40 mg Ferrous Sulfate (Feosol -) 325 mg PO BID [facility] Last Admin: 12/18/17 09:19 Dose: 325 mg Cefepime HCl 2 gm/ Dextrose 100 mls @ 200 mls/hr IVPB BID [facility]; Protocol Last Admin: 12/18/17 09:22 Dose: 200 mls/hr Metronidazole (Flagyl 500mg Premixed Ivpb -) 500 mg in 100 mls @ 100 mls/hr IVPB Q8H-IV [facility] Last Admin: 12/18/17 09:20 Dose: 100 mls/hr Multivitamins/Minerals/Vitamin C (Tab-A-Vit -) 1 tab PO DAILY [facility] Last Admin: 12/18/17 09:19 Dose: 1 tab Ranitidine HCl (Zantac -) 150 mg PO BID [facility] Last Admin: 12/18/17 09:19 Dose: 150 mg Tbo-Filgrastim (Granix -) 480 mcg SQ DAILY [facility] Last Admin: 12/18/17 12:09 Dose: 480 mcg Valacyclovir HCl (Valtrex -) 1,000 mg PO BID [facility] Last Admin: 12/18/17 09:19 Dose: 1,000 mg Voriconazole (Vfend (Restricted To Id)) 200 mg PO BIDWM [facility] Last Admin: 12/18/17 09:20 Dose: 200 mg - Objective Vital Signs: Vital Signs Temperature 986 F H 12/18/17 09:00 Pulse Rate 88 12/18/17 09:00 Respiratory Rate 18 12/18/17 09:00 Blood Pressure 130/66 12/18/17 09:00 O2 Sat by Pulse Oximetry (%) 97 12/18/17 10:00 Constitutional: Yes: Anxious Eyes: Yes: Conjunctiva Clear Neck: Yes: Supple Cardiovascular: Yes: S1, S2 Respiratory: Yes: CTA Bilaterally Gastrointestinal: Yes: Soft Genitourinary: Yes: WNL Musculoskeletal: Yes: WNL Extremities: Yes: WNL Edema: No Integumentary: Yes: WNL Neurological: Yes: Oriented Psychiatric: Yes: Oriented Labs: CBC, BMP 12/18/17 06:00 12/18/17 06:00 INR, PTT INR 1.19 (0.82-1.09) H 12/12/17 10:40 Problem List - Problems (1) Acute kidney injury Code(s): N17.9 - ACUTE KIDNEY FAILURE, UNSPECIFIED (2) Anemia Code(s): D64.9 - ANEMIA, UNSPECIFIED Qualifiers: Anemia type: unspecified type Qualified Code(s): D64.9 - Anemia, unspecified Assessment/Plan Current Medications Generic Name Dose Route Start Last Admin Trade Name Freq PRN Reason Stop Dose Admin Acetaminophen 650 mg 12/14/17 09:42 12/18/17 00:01 Tylenol - PO 650 mg Q4H PRN Administration FEVER Albuterol/Ipratropium 1 amp 12/14/17 11:51 Duoneb - NEB Q4H PRN SHORTNESS OF BREATH Allopurinol 200 mg 12/13/17 10:00 12/18/17 09:19 Zyloprim - PO 200 mg DAILY [facility] Administration Amino Acids 30 ml 12/17/17 17:30 12/18/17 09:19 Prosource No Carb Liquid Pkt PO 30 ml BID@0800,1730 [facility] Administration Aspirin 81 mg 12/13/17 10:00 12/18/17 09:19 Ecotrin - PO 81 mg DAILY [facility] Administration Atorvastatin Calcium 40 mg 12/12/17 22:00 12/17/17 21:55 Lipitor - PO 40 mg HS [facility] Administration Ferrous Sulfate 325 mg 12/12/17 22:00 12/18/17 09:19 Feosol - PO 325 mg BID [facility] Administration Cefepime HCl 2 gm/ Dextrose 100 mls @ 200 mls/hr 12/15/17 22:00 12/18/17 09: 22 IVPB 200 mls/hr BID [facility] Administration Protocol Metronidazole 500 mg in 100 mls @ 100 mls/hr 12/17/17 10:00 12/18/17 09:20 Flagyl 500mg Premixed Ivpb - IVPB 100 mls/hr Q8H-IV [facility] Administration Multivitamins/Minerals/Vitamin C 1 tab 12/17/17 10:00 12/18/17 09:19 Tab-A-Vit - PO 1 tab DAILY [facility] Administration Ranitidine HCl 150 mg 12/12/17 22:00 12/18/17 09:19 Zantac - PO 150 mg BID [facility] Administration Tbo-Filgrastim 480 mcg 12/15/17 20:00 12/18/17 12:09 Granix - SQ 480 mcg DAILY [facility] Administration Valacyclovir HCl 1,000 mg 12/15/17 12:30 12/18/17 09:19 Valtrex - PO 1,000 mg BID [facility] Administration Voriconazole 200 mg 12/14/17 17:30 12/18/17 09:20 Vfend (Restricted To Id) PO 200 mg BIDWM [facility] Administration Impression 1. history of hyponatremia 2. anemia 3. leukopenia 4. hx lung cancer 5. hx melanoma 6. CAD 7. gout 8. fever 9. NUBIA 10. neutropenic fever Plan - renal function is stabilizing - monitor hg - cont current meds - encourage PO inake - repeat labs in am - transfuse as needed - will follow Dr Bray
--- NOTE | 2017-12-18 14:37 | PN ---
Progress Note, Physician History of Present Illness: Depressed affect Offer no complaints Intermittantly febrile Apears mildly dyspneic at rest No c/o chills - Current Medication List Current Medications: Active Medications Acetaminophen (Tylenol -) 650 mg PO Q4H PRN PRN Reason: FEVER Last Admin: 12/18/17 00:01 Dose: 650 mg Albuterol/Ipratropium (Duoneb -) 1 amp NEB Q4H PRN PRN Reason: SHORTNESS OF BREATH Allopurinol (Zyloprim -) 200 mg PO DAILY [facility] Last Admin: 12/18/17 09:19 Dose: 200 mg Amino Acids (Prosource No Carb Liquid Pkt) 30 ml PO BID@0800,1730 [facility] Last Admin: 12/18/17 09:19 Dose: 30 ml Aspirin (Ecotrin -) 81 mg PO DAILY [facility] Last Admin: 12/18/17 09:19 Dose: 81 mg Atorvastatin Calcium (Lipitor -) 40 mg PO HS [facility] Last Admin: 12/17/17 21:55 Dose: 40 mg Ferrous Sulfate (Feosol -) 325 mg PO BID [facility] Last Admin: 12/18/17 09:19 Dose: 325 mg Cefepime HCl 2 gm/ Dextrose 100 mls @ 200 mls/hr IVPB BID [facility]; Protocol Last Admin: 12/18/17 09:22 Dose: 200 mls/hr Metronidazole (Flagyl 500mg Premixed Ivpb -) 500 mg in 100 mls @ 100 mls/hr IVPB Q8H-IV [facility] Last Admin: 12/18/17 09:20 Dose: 100 mls/hr Multivitamins/Minerals/Vitamin C (Tab-A-Vit -) 1 tab PO DAILY [facility] Last Admin: 12/18/17 09:19 Dose: 1 tab Ranitidine HCl (Zantac -) 150 mg PO BID [facility] Last Admin: 12/18/17 09:19 Dose: 150 mg Tbo-Filgrastim (Granix -) 480 mcg SQ DAILY [facility] Last Admin: 12/18/17 12:09 Dose: 480 mcg Valacyclovir HCl (Valtrex -) 1,000 mg PO BID [facility] Last Admin: 12/18/17 09:19 Dose: 1,000 mg Voriconazole (Vfend (Restricted To Id)) 200 mg PO BIDWM [facility] Last Admin: 12/18/17 09:20 Dose: 200 mg - Objective Vital Signs: Vital Signs Temperature 986 F H 12/18/17 09:00 Pulse Rate 88 12/18/17 09:00 Respiratory Rate 18 12/18/17 09:00 Blood Pressure 130/66 12/18/17 09:00 O2 Sat by Pulse Oximetry (%) 97 12/18/17 10:00 Constitutional: Yes: No Distress Eyes: Yes: Conjunctiva Clear Cardiovascular: Yes: Regular Rate and Rhythm, S1, S2 Respiratory: Yes: Diminished Gastrointestinal: Yes: Normal Bowel Sounds, Soft. No: Tenderness Edema: Yes Edema: LLE: 1+, RLE: 1+ Labs: CBC, BMP 12/18/17 06:00 12/18/17 06:00 INR, PTT INR 1.19 (0.82-1.09) H 12/12/17 10:40 Assessment/Plan Febrile neutropenia AML Azotemia Continue cefepime/ flagyl Neutropenic precautions Prognosis poor
--- NOTE | 2017-12-18 15:09 | PN ---
Progress Note, Physician Chief Complaint: AWAKE ALERT TIRED AND WEAK - Current Medication List Current Medications: Active Medications Acetaminophen (Tylenol -) 650 mg PO Q4H PRN PRN Reason: FEVER Last Admin: 12/18/17 00:01 Dose: 650 mg Albuterol/Ipratropium (Duoneb -) 1 amp NEB Q4H PRN PRN Reason: SHORTNESS OF BREATH Allopurinol (Zyloprim -) 200 mg PO DAILY [facility] Last Admin: 12/18/17 09:19 Dose: 200 mg Amino Acids (Prosource No Carb Liquid Pkt) 30 ml PO BID@0800,1730 [facility] Last Admin: 12/18/17 09:19 Dose: 30 ml Aspirin (Ecotrin -) 81 mg PO DAILY [facility] Last Admin: 12/18/17 09:19 Dose: 81 mg Atorvastatin Calcium (Lipitor -) 40 mg PO HS [facility] Last Admin: 12/17/17 21:55 Dose: 40 mg Ferrous Sulfate (Feosol -) 325 mg PO BID [facility] Last Admin: 12/18/17 09:19 Dose: 325 mg Cefepime HCl 2 gm/ Dextrose 100 mls @ 200 mls/hr IVPB BID [facility]; Protocol Last Admin: 12/18/17 09:22 Dose: 200 mls/hr Metronidazole (Flagyl 500mg Premixed Ivpb -) 500 mg in 100 mls @ 100 mls/hr IVPB Q8H-IV [facility] Last Admin: 12/18/17 09:20 Dose: 100 mls/hr Multivitamins/Minerals/Vitamin C (Tab-A-Vit -) 1 tab PO DAILY [facility] Last Admin: 12/18/17 09:19 Dose: 1 tab Ranitidine HCl (Zantac -) 150 mg PO BID [facility] Last Admin: 12/18/17 09:19 Dose: 150 mg Tbo-Filgrastim (Granix -) 480 mcg SQ DAILY [facility] Last Admin: 12/18/17 12:09 Dose: 480 mcg Valacyclovir HCl (Valtrex -) 1,000 mg PO BID [facility] Last Admin: 12/18/17 09:19 Dose: 1,000 mg Voriconazole (Vfend (Restricted To Id)) 200 mg PO BIDWM [facility] Last Admin: 12/18/17 09:20 Dose: 200 mg - Objective Vital Signs: Vital Signs Temperature 986 F H 12/18/17 09:00 Pulse Rate 88 12/18/17 09:00 Respiratory Rate 18 12/18/17 09:00 Blood Pressure 130/66 12/18/17 09:00 O2 Sat by Pulse Oximetry (%) 97 12/18/17 10:00 Constitutional: Yes: Moderate Distress Eyes: Yes: WNL HENT: Yes: WNL Neck: Yes: WNL Cardiovascular: Yes: WNL Respiratory: Yes: WNL Gastrointestinal: Yes: WNL Genitourinary: Yes: WNL, Incontinence Musculoskeletal: Yes: Muscle Weakness Extremities: Yes: WNL Edema: Yes Peripheral Pulses WNL: Yes Integumentary: Yes: WNL Wound/Incision: Yes: Clean/Dry Neurological: Yes: WNL ...Motor Strength: LLE, RLE Psychiatric: Yes: WNL Labs: CBC, BMP 12/18/17 06:00 12/18/17 06:00 INR, PTT INR 1.19 (0.82-1.09) H 12/12/17 10:40 Problem List - Problems (1) Acute kidney injury Code(s): N17.9 - ACUTE KIDNEY FAILURE, UNSPECIFIED (2) Fever Code(s): R50.9 - FEVER, UNSPECIFIED Qualifiers: Fever type: due to other condition Qualified Code(s): R50.81 - Fever presenting with conditions classified elsewhere (3) Neutropenia Code(s): D70.9 - NEUTROPENIA, UNSPECIFIED (4) Sepsis Code(s): A41.9 - SEPSIS, UNSPECIFIED ORGANISM (5) AML (acute myeloblastic leukemia) Code(s): C92.00 - ACUTE MYELOBLASTIC LEUKEMIA, NOT HAVING ACHIEVED REMISSION Qualifiers: Leukemia Active/Remission status: without remission Qualified Code(s): C92.00 - Acute myeloblastic leukemia, not having achieved remission (6) Anemia Code(s): D64.9 - ANEMIA, UNSPECIFIED Qualifiers: Anemia type: unspecified type Qualified Code(s): D64.9 - Anemia, unspecified (7) Chronic diastolic (congestive) heart failure Code(s): I50.32 - CHRONIC DIASTOLIC (CONGESTIVE) HEART FAILURE (8) Hx of CABG Code(s): Z95.1 - PRESENCE OF AORTOCORONARY BYPASS GRAFT (9) Weakness generalized Code(s): R53.1 - WEAKNESS Assessment/Plan NEUTROPENIC FEVER ON IV ABX CULTURES PENDING ID/ONCOLOGY FOLLOW UP APPRECIATED CXR PENDING PULM F/U DVT PROPHYLAXIS STD'S OOB TO CHAIR WITH ASSIST
[2017-12-18] MEDS ORDERED: PT OWN MED DRAWER 7, Y5N ONE ×2 (17:27→20:37)
[2017-12-18] MEDS: ALPRAZolam 0.25 MG TABLET PO PRN (21:33)
[2017-12-18] MEDS: ATORVASTATIN CA 40 MG TABLET (FP) PO SCH (21:34)
--- NOTE | 2017-12-18 22:06 | OP ---
Operative Note - Note: Operative Date: 12/18/17 (bedside) Pre-Operative Diagnosis: ingrown nail left Operation: partial nail avulsion lateral left big toe nail Findings: ingrown nail, pain, erythema Implants: none Post-Operative Diagnosis: Same as Pre-op Surgeon: Francine Nicole Anesthesia: Local (3cc 1% lidocaine to lateral nail fold) Specimens Removed: nail Estimated Blood Loss (mls): 1 (cc) Operative Report Dictated: No
[2017-12-19 07:26] LABS: BASO % 0.2 % (0-2.0); EOS % 0.4 % (0-4.5); HEMATOCRIT 28.4 % (35.4-49); LYMPH % 55.7 % (8-40); MCH 32.7 pg (25.7-33.7); MEAN CELL VOLUME 93.2 fl (80-96); MEAN PLT VOLUME 7.4 fl (7.5-11.1); MONO % 39.6 % (3.8-10.2); NEUT % 4.1 % (42.8-82.8); PLATELET COUNT 140 K/MM3 (134-434); RBC 3.05 M/mm3 (4.00-5.60); RDW 19.2 % (11.9-15.9); WHITE BLOOD COUNT 6.3 K/mm3 (4.0-10.0)
[2017-12-19 07:47] LABS: CHLORIDE 109 mmol/L (98-107); POTASSIUM 4.3 mmol/L (3.5-5.1); SODIUM 140 mmol/L (136-145)
[2017-12-19 07:58] LABS: ANION GAP 8 (8-16); BLOOD UREA NITROGEN 39 mg/dL (7-18); CALCIUM 7.9 mg/dL (8.5-10.1); CO2 23 mmol/L (21-32); CREATININE 1.3 mg/dL (0.7-1.3); GLUCOSE,RANDOM 82 mg/dL (74-106)
--- NOTE | 2017-12-19 08:52 | PN ---
Progress Note (short form) - Note Progress Note: POD#1. No pain. VSS +dressing clean dry and intact, normal post op Dressing change daily of betadine bandaid to lateral border left big toe.
--- NOTE | 2017-12-19 09:57 | PN ---
Progress Note, Physician Chief Complaint: ASLEEP COMFORTABLE - Current Medication List Current Medications: Active Medications Acetaminophen (Tylenol -) 650 mg PO Q4H PRN PRN Reason: FEVER Last Admin: 12/18/17 00:01 Dose: 650 mg Albuterol/Ipratropium (Duoneb -) 1 amp NEB Q4H PRN PRN Reason: SHORTNESS OF BREATH Allopurinol (Zyloprim -) 200 mg PO DAILY [facility] Last Admin: 12/18/17 09:19 Dose: 200 mg Alprazolam (Xanax -) 1 mg PO Q8H PRN PRN Reason: ANXIETY Last Admin: 12/18/17 21:33 Dose: 1 mg Amino Acids (Prosource No Carb Liquid Pkt) 30 ml PO BID@0800,1730 [facility] Last Admin: 12/18/17 17:27 Dose: 30 ml Aspirin (Ecotrin -) 81 mg PO DAILY [facility] Last Admin: 12/18/17 09:19 Dose: 81 mg Atorvastatin Calcium (Lipitor -) 40 mg PO HS [facility] Last Admin: 12/18/17 21:34 Dose: 40 mg Ferrous Sulfate (Feosol -) 325 mg PO BID [facility] Last Admin: 12/18/17 21:34 Dose: 325 mg Cefepime HCl 2 gm/ Dextrose 100 mls @ 200 mls/hr IVPB BID [facility]; Protocol Last Admin: 12/18/17 21:34 Dose: 200 mls/hr Metronidazole (Flagyl 500mg Premixed Ivpb -) 500 mg in 100 mls @ 100 mls/hr IVPB Q8H-IV [facility] Last Admin: 12/19/17 05:00 Dose: 100 mls/hr Multivitamins/Minerals/Vitamin C (Tab-A-Vit -) 1 tab PO DAILY [facility] Last Admin: 12/18/17 09:19 Dose: 1 tab Ranitidine HCl (Zantac -) 150 mg PO BID [facility] Last Admin: 12/18/17 21:34 Dose: 150 mg Tbo-Filgrastim (Granix -) 480 mcg SQ DAILY [facility] Last Admin: 12/18/17 12:09 Dose: 480 mcg Valacyclovir HCl (Valtrex -) 1,000 mg PO BID [facility] Last Admin: 12/18/17 21:33 Dose: 1,000 mg Voriconazole (Vfend (Restricted To Id)) 200 mg PO BIDWM [facility] Last Admin: 12/18/17 17:27 Dose: 200 mg - Objective Vital Signs: Vital Signs Temperature 98.8 F 12/19/17 01:24 Pulse Rate 90 12/19/17 01:24 Respiratory Rate 18 12/19/17 01:24 Blood Pressure 131/55 12/19/17 01:24 O2 Sat by Pulse Oximetry (%) 98 12/18/17 21:00 Constitutional: Yes: No Distress Eyes: Yes: WNL HENT: Yes: WNL Neck: Yes: WNL Cardiovascular: Yes: WNL Respiratory: Yes: WNL Gastrointestinal: Yes: WNL Genitourinary: Yes: WNL Musculoskeletal: Yes: WNL Extremities: Yes: WNL Edema: No Peripheral Pulses WNL: Yes Integumentary: Yes: WNL Wound/Incision: Yes: Clean/Dry Neurological: Yes: WNL ...Motor Strength: WNL Psychiatric: Yes: WNL Labs: CBC, BMP 12/19/17 06:30 12/19/17 06:30 INR, PTT INR 1.19 (0.82-1.09) H 12/12/17 10:40 Problem List - Problems (1) Acute kidney injury Code(s): N17.9 - ACUTE KIDNEY FAILURE, UNSPECIFIED (2) Fever Code(s): R50.9 - FEVER, UNSPECIFIED Qualifiers: Fever type: due to other condition Qualified Code(s): R50.81 - Fever presenting with conditions classified elsewhere (3) Neutropenia Code(s): D70.9 - NEUTROPENIA, UNSPECIFIED (4) Sepsis Code(s): A41.9 - SEPSIS, UNSPECIFIED ORGANISM (5) AML (acute myeloblastic leukemia) Code(s): C92.00 - ACUTE MYELOBLASTIC LEUKEMIA, NOT HAVING ACHIEVED REMISSION Qualifiers: Leukemia Active/Remission status: without remission Qualified Code(s): C92.00 - Acute myeloblastic leukemia, not having achieved remission (6) Anemia Code(s): D64.9 - ANEMIA, UNSPECIFIED Qualifiers: Anemia type: unspecified type Qualified Code(s): D64.9 - Anemia, unspecified (7) Chronic diastolic (congestive) heart failure Code(s): I50.32 - CHRONIC DIASTOLIC (CONGESTIVE) HEART FAILURE (8) Hx of CABG Code(s): Z95.1 - PRESENCE OF AORTOCORONARY BYPASS GRAFT (9) Weakness generalized Code(s): R53.1 - WEAKNESS Assessment/Plan POOR OVERALL PROGNOSIS PALLIAITVE CARE EVAL NEUTROPENIC FEVER ON IV ABX CULTURES PENDING ID/ONCOLOGY FOLLOW UP APPRECIATED CXR PENDING PULM F/U DVT PROPHYLAXIS STD'S OOB TO CHAIR WITH ASSIST
[2017-12-19] MEDS: AMINO ACIDS/PROTEIN HYDROLYS 30 ML LIQUID.PKT PO SCH ×2 (10:48→17:48)
[2017-12-19] MEDS: valACYclovir HCL 500 MG TABLET (FP) PO SCH ×2 (10:50→22:23)
[2017-12-19] MEDS: ASPIRIN COATED 81 MG TABLET.EC PO SCH (10:50)
[2017-12-19] MEDS: FERROUS SO4 325 MG TABLET (FP) PO SCH ×2 (10:50→22:23)
[2017-12-19] MEDS: ALLOPURINOL 100 MG TABLET (FP) PO SCH (10:51)
[2017-12-19] MEDS: MULTIVITAMINS (DAILY MVI) TABLET (FP) PO SCH (10:51)
[2017-12-19] MEDS: RANITIDINE HCL 150 MG TABLET (FP) PO SCH ×2 (10:51→22:23)
[2017-12-19] MEDS: CEFEPIME 2 GM in DEXTROSE 5%-WATER 100 ML IVPB SCH ×2 (10:52→22:25)
[2017-12-19] MEDS: VORICONAZOLE 200 MG TABLET (RESTRICTED TO ID) PO SCH ×2 (10:52→17:49)
--- NOTE | 2017-12-19 11:50 | PN ---
Progress Note, Physician History of Present Illness: Pt seen and examined at bedside. He appears comfortable. He denies shortness of breath. - Current Medication List Current Medications: Active Medications Acetaminophen (Tylenol -) 650 mg PO Q4H PRN PRN Reason: FEVER Last Admin: 12/18/17 00:01 Dose: 650 mg Albuterol/Ipratropium (Duoneb -) 1 amp NEB Q4H PRN PRN Reason: SHORTNESS OF BREATH Allopurinol (Zyloprim -) 200 mg PO DAILY [facility] Last Admin: 12/19/17 10:51 Dose: 200 mg Alprazolam (Xanax -) 1 mg PO Q8H PRN PRN Reason: ANXIETY Last Admin: 12/18/17 21:33 Dose: 1 mg Amino Acids (Prosource No Carb Liquid Pkt) 30 ml PO BID@0800,1730 [facility] Last Admin: 12/19/17 10:48 Dose: 30 ml Aspirin (Ecotrin -) 81 mg PO DAILY [facility] Last Admin: 12/19/17 10:50 Dose: 81 mg Atorvastatin Calcium (Lipitor -) 40 mg PO HS [facility] Last Admin: 12/18/17 21:34 Dose: 40 mg Ferrous Sulfate (Feosol -) 325 mg PO BID [facility] Last Admin: 12/19/17 10:50 Dose: 325 mg Cefepime HCl 2 gm/ Dextrose 100 mls @ 200 mls/hr IVPB BID [facility]; Protocol Last Admin: 12/19/17 10:52 Dose: 200 mls/hr Metronidazole (Flagyl 500mg Premixed Ivpb -) 500 mg in 100 mls @ 100 mls/hr IVPB Q8H-IV [facility] Last Admin: 12/19/17 10:49 Dose: 100 mls/hr Multivitamins/Minerals/Vitamin C (Tab-A-Vit -) 1 tab PO DAILY [facility] Last Admin: 12/19/17 10:51 Dose: 1 tab Ranitidine HCl (Zantac -) 150 mg PO BID [facility] Last Admin: 12/19/17 10:51 Dose: 150 mg Tbo-Filgrastim (Granix -) 480 mcg SQ DAILY [facility] Last Admin: 12/18/17 12:09 Dose: 480 mcg Valacyclovir HCl (Valtrex -) 1,000 mg PO BID [facility] Last Admin: 12/19/17 10:50 Dose: 1,000 mg Voriconazole (Vfend (Restricted To Id)) 200 mg PO BIDWM [facility] Last Admin: 12/19/17 10:52 Dose: 200 mg - Objective Vital Signs: Vital Signs Temperature 98 F 12/19/17 10:00 Pulse Rate 89 12/19/17 10:00 Respiratory Rate 20 12/19/17 10:00 Blood Pressure 117/54 12/19/17 10:00 O2 Sat by Pulse Oximetry (%) 98 12/19/17 09:00 Constitutional: Yes: Calm Eyes: Yes: Conjunctiva Clear HENT: Yes: Atraumatic Neck: Yes: Supple Cardiovascular: Yes: S1, S2 Respiratory: Yes: On Nasal O2 Gastrointestinal: Yes: Normal Bowel Sounds, Soft Genitourinary: Yes: WNL Musculoskeletal: Yes: WNL Extremities: Yes: WNL Edema: No Neurological: Yes: Oriented Psychiatric: Yes: Oriented Labs: CBC, BMP 12/19/17 06:30 12/19/17 06:30 INR, PTT INR 1.19 (0.82-1.09) H 12/12/17 10:40 Problem List - Problems (1) Acute kidney injury Code(s): N17.9 - ACUTE KIDNEY FAILURE, UNSPECIFIED (2) Anemia Code(s): D64.9 - ANEMIA, UNSPECIFIED Qualifiers: Anemia type: unspecified type Qualified Code(s): D64.9 - Anemia, unspecified Assessment/Plan Current Medications Generic Name Dose Route Start Last Admin Trade Name Freq PRN Reason Stop Dose Admin Acetaminophen 650 mg 12/14/17 09:42 12/18/17 00:01 Tylenol - PO 650 mg Q4H PRN Administration FEVER Albuterol/Ipratropium 1 amp 12/14/17 11:51 Duoneb - NEB Q4H PRN SHORTNESS OF BREATH Allopurinol 200 mg 12/13/17 10:00 12/19/17 10:51 Zyloprim - PO 200 mg DAILY [facility] Administration Alprazolam 1 mg 12/18/17 15:17 12/18/17 21:33 Xanax - PO 1 mg Q8H PRN Administration ANXIETY Amino Acids 30 ml 12/17/17 17:30 12/19/17 10:48 Prosource No Carb Liquid Pkt PO 30 ml BID@0800,1730 [facility] Administration Aspirin 81 mg 12/13/17 10:00 12/19/17 10:50 Ecotrin - PO 81 mg DAILY [facility] Administration Atorvastatin Calcium 40 mg 12/12/17 22:00 12/18/17 21:34 Lipitor - PO 40 mg HS [facility] Administration Ferrous Sulfate 325 mg 12/12/17 22:00 12/19/17 10:50 Feosol - PO 325 mg BID [facility] Administration Cefepime HCl 2 gm/ Dextrose 100 mls @ 200 mls/hr 12/15/17 22:00 12/19/17 10: 52 IVPB 200 mls/hr BID [facility] Administration Protocol Metronidazole 500 mg in 100 mls @ 100 mls/hr 12/17/17 10:00 12/19/17 10:49 Flagyl 500mg Premixed Ivpb - IVPB 100 mls/hr Q8H-IV [facility] Administration Multivitamins/Minerals/Vitamin C 1 tab 12/17/17 10:00 12/19/17 10:51 Tab-A-Vit - PO 1 tab DAILY [facility] Administration Ranitidine HCl 150 mg 12/12/17 22:00 12/19/17 10:51 Zantac - PO 150 mg BID [facility] Administration Tbo-Filgrastim 480 mcg 12/15/17 20:00 12/18/17 12:09 Granix - SQ 480 mcg DAILY [facility] Administration Valacyclovir HCl 1,000 mg 12/15/17 12:30 12/19/17 10:50 Valtrex - PO 1,000 mg BID [facility] Administration Voriconazole 200 mg 12/14/17 17:30 12/19/17 10:52 Vfend (Restricted To Id) PO 200 mg BIDWM [facility] Administration Impression 1. history of hyponatremia 2. anemia 3. leukopenia 4. hx lung cancer 5. hx melanoma 6. CAD 7. gout 8. fever 9. NUBIA 10. neutropenic fever Plan - renal function is improving - hg is improved - sodium is stale - cont to monitor renal function - NUBIA likely from dehydration - will follow Dr Bray
--- NOTE | 2017-12-19 12:06 | PN ---
Progress Note, Physician History of Present Illness: pulmonary alert,comfortable,-resp distress - Current Medication List Current Medications: Active Medications Acetaminophen (Tylenol -) 650 mg PO Q4H PRN PRN Reason: FEVER Last Admin: 12/18/17 00:01 Dose: 650 mg Allopurinol (Zyloprim -) 200 mg PO DAILY [facility] Last Admin: 12/19/17 10:51 Dose: 200 mg Alprazolam (Xanax -) 1 mg PO Q8H PRN PRN Reason: ANXIETY Last Admin: 12/18/17 21:33 Dose: 1 mg Amino Acids (Prosource No Carb Liquid Pkt) 30 ml PO BID@0800,1730 [facility] Last Admin: 12/19/17 10:48 Dose: 30 ml Aspirin (Ecotrin -) 81 mg PO DAILY [facility] Last Admin: 12/19/17 10:50 Dose: 81 mg Atorvastatin Calcium (Lipitor -) 40 mg PO HS [facility] Last Admin: 12/18/17 21:34 Dose: 40 mg Ferrous Sulfate (Feosol -) 325 mg PO BID [facility] Last Admin: 12/19/17 10:50 Dose: 325 mg Cefepime HCl 2 gm/ Dextrose 100 mls @ 200 mls/hr IVPB BID [facility]; Protocol Last Admin: 12/19/17 10:52 Dose: 200 mls/hr Metronidazole (Flagyl 500mg Premixed Ivpb -) 500 mg in 100 mls @ 100 mls/hr IVPB Q8H-IV [facility] Last Admin: 12/19/17 10:49 Dose: 100 mls/hr Multivitamins/Minerals/Vitamin C (Tab-A-Vit -) 1 tab PO DAILY [facility] Last Admin: 12/19/17 10:51 Dose: 1 tab Ranitidine HCl (Zantac -) 150 mg PO BID [facility] Last Admin: 12/19/17 10:51 Dose: 150 mg Tbo-Filgrastim (Granix -) 480 mcg SQ DAILY [facility] Last Admin: 12/18/17 12:09 Dose: 480 mcg Valacyclovir HCl (Valtrex -) 1,000 mg PO BID [facility] Last Admin: 12/19/17 10:50 Dose: 1,000 mg Voriconazole (Vfend (Restricted To Id)) 200 mg PO BIDWM [facility] Last Admin: 12/19/17 10:52 Dose: 200 mg - Objective Vital Signs: Vital Signs Temperature 98 F 12/19/17 10:00 Pulse Rate 89 12/19/17 10:00 Respiratory Rate 20 12/19/17 10:00 Blood Pressure 117/54 12/19/17 10:00 O2 Sat by Pulse Oximetry (%) 98 12/19/17 09:00 Constitutional: Yes: Well Nourished, Calm Eyes: Yes: WNL HENT: Yes: WNL Neck: Yes: WNL Cardiovascular: Yes: Regular Rate and Rhythm, S1, S2 Respiratory: Yes: Rales (bibasilar crackles) Gastrointestinal: Yes: Normal Bowel Sounds, Soft Extremities: Yes: WNL Edema: No Labs: CBC, BMP 12/19/17 06:30 12/19/17 06:30 INR, PTT INR 1.19 (0.82-1.09) H 12/12/17 10:40 Problem List - Problems (1) Neutropenia Code(s): D70.9 - NEUTROPENIA, UNSPECIFIED (2) Fever Code(s): R50.9 - FEVER, UNSPECIFIED Qualifiers: Fever type: due to other condition Qualified Code(s): R50.81 - Fever presenting with conditions classified elsewhere (3) Sepsis Code(s): A41.9 - SEPSIS, UNSPECIFIED ORGANISM (4) AML (acute myeloblastic leukemia) Code(s): C92.00 - ACUTE MYELOBLASTIC LEUKEMIA, NOT HAVING ACHIEVED REMISSION Qualifiers: Leukemia Active/Remission status: without remission Qualified Code(s): C92.00 - Acute myeloblastic leukemia, not having achieved remission (5) Anemia Code(s): D64.9 - ANEMIA, UNSPECIFIED Qualifiers: Anemia type: unspecified type Qualified Code(s): D64.9 - Anemia, unspecified (6) Chronic diastolic (congestive) heart failure Code(s): I50.32 - CHRONIC DIASTOLIC (CONGESTIVE) HEART FAILURE (7) HLD (hyperlipidemia) Code(s): E78.5 - HYPERLIPIDEMIA, UNSPECIFIED (8) HTN (hypertension) Code(s): I10 - ESSENTIAL (PRIMARY) HYPERTENSION Qualifiers: Hypertension type: essential hypertension Qualified Code(s): I10 - Essential (primary) hypertension (9) Lung cancer Code(s): C34.90 - MALIGNANT NEOPLASM OF UNSP PART OF UNSP BRONCHUS OR LUNG Qualifiers: Laterality: unspecified laterality (10) Melanoma Code(s): C43.9 - MALIGNANT MELANOMA OF SKIN, UNSPECIFIED Qualifiers: Melanoma location: unspecified site Qualified Code(s): C43.9 - Malignant melanoma of skin, unspecified (11) Shortness of breath Code(s): R06.02 - SHORTNESS OF BREATH (12) Syncope Code(s): R55 - SYNCOPE AND COLLAPSE Qualifiers: Syncope type: unspecified Qualified Code(s): R55 - Syncope and collapse Assessment/Plan IMP NEUTROPENIC FEVER AML ANEMIA SYNCOPE H/O MELANOMA H/O LUNG CA S/P RESECTION PULMONARY NODULE ?MALIGNANT ASHD S/P CABG ACUTE KIDNEY INJURY HTN DIASTOLIC HF PLAN ABX PER ID INHALED BRONCHODILATORS NORMAL TRANSFUSION THRESHOLD IVF MONITOR LYTES,RENAL FUNCTION,H+H,CBC SUPPLEMENTAL O2 OUTPATIENT F/U PULMONARY NODULE JACE HANSEN Problem List - Problems (1) Neutropenia Code(s): D70.9 - NEUTROPENIA, UNSPECIFIED (2) Fever Code(s): R50.9 - FEVER, UNSPECIFIED Qualifiers: Fever type: due to other condition Qualified Code(s): R50.81 - Fever presenting with conditions classified elsewhere (3) Sepsis Code(s): A41.9 - SEPSIS, UNSPECIFIED ORGANISM (4) AML (acute myeloblastic leukemia) Code(s): C92.00 - ACUTE MYELOBLASTIC LEUKEMIA, NOT HAVING ACHIEVED REMISSION Qualifiers: Leukemia Active/Remission status: without remission Qualified Code(s): C92.00 - Acute myeloblastic leukemia, not having achieved remission (5) Anemia Code(s): D64.9 - ANEMIA, UNSPECIFIED Qualifiers: Anemia type: unspecified type Qualified Code(s): D64.9 - Anemia, unspecified (6) Chronic diastolic (congestive) heart failure Code(s): I50.32 - CHRONIC DIASTOLIC (CONGESTIVE) HEART FAILURE (7) HLD (hyperlipidemia) Code(s): E78.5 - HYPERLIPIDEMIA, UNSPECIFIED (8) HTN (hypertension) Code(s): I10 - ESSENTIAL (PRIMARY) HYPERTENSION Qualifiers: Hypertension type: essential hypertension Qualified Code(s): I10 - Essential (primary) hypertension (9) Lung cancer Code(s): C34.90 - MALIGNANT NEOPLASM OF UNSP PART OF UNSP BRONCHUS OR LUNG Qualifiers: Laterality: unspecified laterality (10) Melanoma Code(s): C43.9 - MALIGNANT MELANOMA OF SKIN, UNSPECIFIED Qualifiers: Melanoma location: unspecified site Qualified Code(s): C43.9 - Malignant melanoma of skin, unspecified (11) Shortness of breath Code(s): R06.02 - SHORTNESS OF BREATH (12) Syncope Code(s): R55 - SYNCOPE AND COLLAPSE Qualifiers: Syncope type: unspecified Qualified Code(s): R55 - Syncope and collapse
[2017-12-19] MEDS ORDERED: ALBUTEROL SO4 2.5/IPRATROPIUM 0.5 INH SOL 3 ML VIAL.NEB. NEB ONE (13:38)
[2017-12-19] MEDS ORDERED: PT OWN MED DRAWER 7, Y5N ONE (15:36)
--- NOTE | 2017-12-19 16:41 | PN ---
Progress Note (short form) - Note Progress Note: Pt seen and examined . events noted status unchanged. s/p 2U PRBCs O/E: General: in no acute distress HEENT: NCAT Cor: RRR Lungs:poor inspiratory effort LE: No CCE Last Vital Signs Temp Pulse Resp BP Pulse Ox 98.2 F 87 22 142/56 98 12/19/17 14:01 12/19/17 14:01 12/19/17 14:01 12/19/17 14:01 12/19/17 09:00 CBC, BMP 12/19/17 06:30 12/19/17 06:30 Current Medications Generic Name Dose Route Start Last Admin Trade Name Freq PRN Reason Stop Dose Admin Acetaminophen 650 mg 12/14/17 09:42 12/18/17 00:01 Tylenol - PO 650 mg Q4H PRN Administration FEVER Allopurinol 200 mg 12/13/17 10:00 12/19/17 10:51 Zyloprim - PO 200 mg DAILY [facility] Administration Alprazolam 1 mg 12/18/17 15:17 12/18/17 21:33 Xanax - PO 1 mg Q8H PRN Administration ANXIETY Amino Acids 30 ml 12/17/17 17:30 12/19/17 10:48 Prosource No Carb Liquid Pkt PO 30 ml BID@0800,1730 [facility] Administration Aspirin 81 mg 12/13/17 10:00 12/19/17 10:50 Ecotrin - PO 81 mg DAILY [facility] Administration Atorvastatin Calcium 40 mg 12/12/17 22:00 12/18/17 21:34 Lipitor - PO 40 mg HS [facility] Administration Ferrous Sulfate 325 mg 12/12/17 22:00 12/19/17 10:50 Feosol - PO 325 mg BID [facility] Administration Cefepime HCl 2 gm/ Dextrose 100 mls @ 200 mls/hr 12/15/17 22:00 12/19/17 10: 52 IVPB 200 mls/hr BID [facility] Administration Protocol Metronidazole 500 mg in 100 mls @ 100 mls/hr 12/17/17 10:00 12/19/17 10:49 Flagyl 500mg Premixed Ivpb - IVPB 100 mls/hr Q8H-IV [facility] Administration Multivitamins/Minerals/Vitamin C 1 tab 12/17/17 10:00 12/19/17 10:51 Tab-A-Vit - PO 1 tab DAILY [facility] Administration Ranitidine HCl 150 mg 12/12/17 22:00 12/19/17 10:51 Zantac - PO 150 mg BID [facility] Administration Tbo-Filgrastim 480 mcg 12/15/17 20:00 12/18/17 12:09 Granix - SQ 480 mcg DAILY [facility] Administration Valacyclovir HCl 1,000 mg 12/15/17 12:30 12/19/17 10:50 Valtrex - PO 1,000 mg BID [facility] Administration Voriconazole 200 mg 12/14/17 17:30 12/19/17 10:52 Vfend (Restricted To Id) PO 200 mg BIDWM [facility] Administration AML-- on no treatment (per pts choice)-- flow with 40% blasts . Neutropenic sepsis: on broad spectrum including anti-fungal/viral--?leukemia induced ?toe with early abscess Supportive care with regular transfusion threshold. Neupogen -- c/w TLS ppx: c/w allopurinol OI ppx: Presently on anti-bacterial, fungal , viral poor PS/Guarded prognosis Palliative care consult pending
[2017-12-19] MEDS ORDERED: ALBUTEROL SO4 2.5/IPRATROPIUM 0.5 INH SOL 3 ML VIAL.NEB. NEB PRN (17:14)
[2017-12-19] MEDS: TBO-FILGRASTIM 480 MCG/0.8 ML DISP.SYRIN SQ SCH (17:44)
[2017-12-19] MEDS: traMADol HCL 50 MG TABLET PO PRN (17:58)
[2017-12-19] MEDS: ATORVASTATIN CA 40 MG TABLET (FP) PO SCH (22:23)
[2017-12-19] MEDS: ALPRAZolam 0.25 MG TABLET PO PRN (22:31)
[2017-12-19] MEDS: ACETAMINOPHEN 325 MG TABLET (FP) PO PRN (22:42)
[2017-12-20] MEDS: traMADol HCL 50 MG TABLET PO PRN ×2 (00:15→22:07)
[2017-12-20 07:50] LABS: ANION GAP 6 (8-16); CALCIUM 7.7 mg/dL (8.5-10.1); CHLORIDE 109 mmol/L (98-107); CO2 24 mmol/L (21-32); CREATININE 1.3 mg/dL (0.7-1.3); GLUCOSE,RANDOM 84 mg/dL (74-106); POTASSIUM 4.2 mmol/L (3.5-5.1); SODIUM 139 mmol/L (136-145)
[2017-12-20 08:02] LABS: BLOOD UREA NITROGEN 40 mg/dL (7-18)
--- NOTE | 2017-12-20 09:15 | PN ---
Progress Note, Physician - Current Medication List Current Medications: Active Medications Acetaminophen (Tylenol -) 650 mg PO Q4H PRN PRN Reason: FEVER Last Admin: 12/19/17 22:42 Dose: 650 mg Albuterol/Ipratropium (Duoneb -) 1 amp NEB Q4H PRN PRN Reason: SHORTNESS OF BREATH Stop: 12/21/17 17:13 Allopurinol (Zyloprim -) 200 mg PO DAILY [facility] Last Admin: 12/19/17 10:51 Dose: 200 mg Alprazolam (Xanax -) 1 mg PO Q8H PRN PRN Reason: ANXIETY Last Admin: 12/19/17 22:31 Dose: 1 mg Amino Acids (Prosource No Carb Liquid Pkt) 30 ml PO BID@0800,1730 [facility] Last Admin: 12/19/17 17:48 Dose: 30 ml Aspirin (Ecotrin -) 81 mg PO DAILY [facility] Last Admin: 12/19/17 10:50 Dose: 81 mg Atorvastatin Calcium (Lipitor -) 40 mg PO HS [facility] Last Admin: 12/19/17 22:23 Dose: 40 mg Ferrous Sulfate (Feosol -) 325 mg PO BID [facility] Last Admin: 12/19/17 22:23 Dose: 325 mg Cefepime HCl 2 gm/ Dextrose 100 mls @ 200 mls/hr IVPB BID [facility]; Protocol Last Admin: 12/19/17 22:25 Dose: 200 mls/hr Metronidazole (Flagyl 500mg Premixed Ivpb -) 500 mg in 100 mls @ 100 mls/hr IVPB Q8H-IV [facility] Last Admin: 12/20/17 01:11 Dose: 100 mls/hr Multivitamins/Minerals/Vitamin C (Tab-A-Vit -) 1 tab PO DAILY [facility] Last Admin: 12/19/17 10:51 Dose: 1 tab Ranitidine HCl (Zantac -) 150 mg PO BID [facility] Last Admin: 12/19/17 22:23 Dose: 150 mg Tbo-Filgrastim (Granix -) 480 mcg SQ DAILY [facility] Last Admin: 12/19/17 17:44 Dose: 480 mcg Tramadol HCl (Ultram -) 50 mg PO Q6H PRN PRN Reason: PAIN LEVEL 6-10 Last Admin: 12/20/17 00:15 Dose: 50 mg Valacyclovir HCl (Valtrex -) 1,000 mg PO BID [facility] Last Admin: 12/19/17 22:23 Dose: 1,000 mg Voriconazole (Vfend (Restricted To Id)) 200 mg PO BIDWM [facility] Last Admin: 12/19/17 17:49 Dose: 200 mg - Objective Vital Signs: Vital Signs Temperature 98.0 F 12/20/17 06:47 Pulse Rate 91 H 12/20/17 06:47 Respiratory Rate 20 12/20/17 06:47 Blood Pressure 135/66 12/20/17 06:47 O2 Sat by Pulse Oximetry (%) 98 12/19/17 22:00 Cardiovascular: Yes: S1, S2 Respiratory: Yes: Regular, CTA Bilaterally Gastrointestinal: Yes: Normal Bowel Sounds, Soft Labs: CBC, BMP 12/19/17 06:30 12/20/17 06:36 INR, PTT INR 1.19 (0.82-1.09) H 12/12/17 10:40 Problem List - Problems (1) Sepsis Assessment/Plan: --Cultures done --IV Abx --Id consult Code(s): A41.9 - SEPSIS, UNSPECIFIED ORGANISM (2) Acute kidney injury Assessment/Plan: -IVF -Follow Labs -Renal consult Code(s): N17.9 - ACUTE KIDNEY FAILURE, UNSPECIFIED (3) AML (acute myeloblastic leukemia) Assessment/Plan: -oncology consult Code(s): C92.00 - ACUTE MYELOBLASTIC LEUKEMIA, NOT HAVING ACHIEVED REMISSION Qualifiers: Leukemia Active/Remission status: without remission Qualified Code(s): C92.00 - Acute myeloblastic leukemia, not having achieved remission (4) Anemia Assessment/Plan: -GI consult noted -hem on board _Follow Labs Code(s): D64.9 - ANEMIA, UNSPECIFIED Qualifiers: Anemia type: unspecified type Qualified Code(s): D64.9 - Anemia, unspecified (5) Hx of CABG Code(s): Z95.1 - PRESENCE OF AORTOCORONARY BYPASS GRAFT (6) Syncope Assessment/Plan: -W/U in progress -cardio consult -transfuse -Follow Labs Code(s): R55 - SYNCOPE AND COLLAPSE Qualifiers: Syncope type: unspecified Qualified Code(s): R55 - Syncope and collapse
[2017-12-20] MEDS ORDERED: PT OWN MED DRAWER 7, Y5N ONE ×3 (09:48→21:54)
[2017-12-20] MEDS: RANITIDINE HCL 150 MG TABLET (FP) PO SCH ×2 (10:00→22:00)
[2017-12-20] MEDS: valACYclovir HCL 500 MG TABLET (FP) PO SCH ×2 (10:00→22:00)
[2017-12-20] MEDS: AMINO ACIDS/PROTEIN HYDROLYS 30 ML LIQUID.PKT PO SCH ×2 (10:00→17:27)
[2017-12-20] MEDS: ASPIRIN COATED 81 MG TABLET.EC PO SCH (10:00)
[2017-12-20] MEDS: FERROUS SO4 325 MG TABLET (FP) PO SCH ×2 (10:00→22:00)
[2017-12-20] MEDS: ALLOPURINOL 100 MG TABLET (FP) PO SCH (10:00)
[2017-12-20] MEDS: MULTIVITAMINS (DAILY MVI) TABLET (FP) PO SCH (10:00)
[2017-12-20] MEDS: VORICONAZOLE 200 MG TABLET (RESTRICTED TO ID) PO SCH ×2 (10:01→18:00)
[2017-12-20] MEDS: CEFEPIME 2 GM in DEXTROSE 5%-WATER 100 ML IVPB SCH ×2 (10:02→22:00)
--- NOTE | 2017-12-20 11:47 | PN ---
Progress Note (short form) - Note Progress Note: Resting in NAD. No CP or SOB. No acute events overnight. Intake & Output 12/17/17 12/18/17 12/19/17 12/20/17 23:59 23:59 23:59 23:59 Intake Total 527 484 8330 950 Balance 119 735 6700 950 Last Vital Signs Temp Pulse Resp BP Pulse Ox 99.4 F 96 H 20 126/59 98 12/20/17 09:00 12/20/17 09:00 12/20/17 09:00 12/20/17 09:00 12/19/17 22:00 Active Medications Acetaminophen (Tylenol -) 650 mg PO Q4H PRN PRN Reason: FEVER Last Admin: 12/19/17 22:42 Dose: 650 mg Albuterol/Ipratropium (Duoneb -) 1 amp NEB Q4H PRN PRN Reason: SHORTNESS OF BREATH Stop: 12/21/17 17:13 Allopurinol (Zyloprim -) 200 mg PO DAILY [facility] Last Admin: 12/20/17 10:00 Dose: 200 mg Alprazolam (Xanax -) 1 mg PO Q8H PRN PRN Reason: ANXIETY Last Admin: 12/19/17 22:31 Dose: 1 mg Amino Acids (Prosource No Carb Liquid Pkt) 30 ml PO BID@0800,1730 [facility] Last Admin: 12/20/17 10:00 Dose: 30 ml Aspirin (Ecotrin -) 81 mg PO DAILY [facility] Last Admin: 12/20/17 10:00 Dose: 81 mg Atorvastatin Calcium (Lipitor -) 40 mg PO HS [facility] Last Admin: 12/19/17 22:23 Dose: 40 mg Ferrous Sulfate (Feosol -) 325 mg PO BID [facility] Last Admin: 12/20/17 10:00 Dose: 325 mg Cefepime HCl 2 gm/ Dextrose 100 mls @ 200 mls/hr IVPB BID [facility]; Protocol Last Admin: 12/20/17 10:02 Dose: 200 mls/hr Metronidazole (Flagyl 500mg Premixed Ivpb -) 500 mg in 100 mls @ 100 mls/hr IVPB Q8H-IV [facility] Last Admin: 12/20/17 10:00 Dose: 100 mls/hr Multivitamins/Minerals/Vitamin C (Tab-A-Vit -) 1 tab PO DAILY [facility] Last Admin: 12/20/17 10:00 Dose: 1 tab Ranitidine HCl (Zantac -) 150 mg PO BID [facility] Last Admin: 12/20/17 10:00 Dose: 150 mg Tbo-Filgrastim (Granix -) 480 mcg SQ DAILY [facility] Last Admin: 12/19/17 17:44 Dose: 480 mcg Tramadol HCl (Ultram -) 50 mg PO Q6H PRN PRN Reason: PAIN LEVEL 6-10 Last Admin: 12/20/17 00:15 Dose: 50 mg Valacyclovir HCl (Valtrex -) 1,000 mg PO BID [facility] Last Admin: 12/20/17 10:00 Dose: 1,000 mg Voriconazole (Vfend (Restricted To Id)) 200 mg PO BIDWM [facility] Last Admin: 12/20/17 10:01 Dose: 200 mg Constitutional: Yes: NAD Eyes: Yes: WNL HENT: Yes: WNL Neck: Yes: WNL Cardiovascular: Yes: Regular Rate and Rhythm, S1, S2 Respiratory: Yes: Basilar Rales/Rhonchi Gastrointestinal: Yes: Normal Bowel Sounds, Soft Extremities: Yes: WNL Edema: No Labs: Laboratory Results - last 24 hr 12/20/17 06:36 Sodium 139 Potassium 4.2 Chloride 109 H Carbon Dioxide 24 Anion Gap 6 L BUN 40 H Creatinine 1.3 Random Glucose 84 Calcium 7.7 L Problem List - Problems (1) Neutropenia Code(s): D70.9 - NEUTROPENIA, UNSPECIFIED (2) Fever Code(s): R50.9 - FEVER, UNSPECIFIED Qualifiers: Fever type: due to other condition Qualified Code(s): R50.81 - Fever presenting with conditions classified elsewhere (3) Sepsis Code(s): A41.9 - SEPSIS, UNSPECIFIED ORGANISM (4) AML (acute myeloblastic leukemia) Code(s): C92.00 - ACUTE MYELOBLASTIC LEUKEMIA, NOT HAVING ACHIEVED REMISSION Qualifiers: Leukemia Active/Remission status: without remission Qualified Code(s): C92.00 - Acute myeloblastic leukemia, not having achieved remission (5) Anemia Code(s): D64.9 - ANEMIA, UNSPECIFIED Qualifiers: Anemia type: unspecified type Qualified Code(s): D64.9 - Anemia, unspecified (6) Chronic diastolic (congestive) heart failure Code(s): I50.32 - CHRONIC DIASTOLIC (CONGESTIVE) HEART FAILURE (7) HLD (hyperlipidemia) Code(s): E78.5 - HYPERLIPIDEMIA, UNSPECIFIED (8) HTN (hypertension) Code(s): I10 - ESSENTIAL (PRIMARY) HYPERTENSION Qualifiers: Hypertension type: essential hypertension Qualified Code(s): I10 - Essential (primary) hypertension (9) Lung cancer Code(s): C34.90 - MALIGNANT NEOPLASM OF UNSP PART OF UNSP BRONCHUS OR LUNG Qualifiers: Laterality: unspecified laterality (10) Melanoma Code(s): C43.9 - MALIGNANT MELANOMA OF SKIN, UNSPECIFIED Qualifiers: Melanoma location: unspecified site Qualified Code(s): C43.9 - Malignant melanoma of skin, unspecified (11) Shortness of breath Code(s): R06.02 - SHORTNESS OF BREATH (12) Syncope Code(s): R55 - SYNCOPE AND COLLAPSE Qualifiers: Syncope type: unspecified Qualified Code(s): R55 - Syncope and collapse Assessment/Plan IMP NEUTROPENIC FEVER AML ANEMIA SYNCOPE H/O MELANOMA H/O LUNG CA S/P RESECTION PULMONARY NODULE ?MALIGNANT ASHD S/P CABG ACUTE KIDNEY INJURY HTN DIASTOLIC HF PLAN ABX PER ID INHALED BRONCHODILATORS NORMAL TRANSFUSION THRESHOLD SUPPLEMENTAL O2 OUTPATIENT F/U PULMONARY NODULE JACE Magallanes
--- NOTE | 2017-12-20 14:36 | PN ---
Progress Note, Physician History of Present Illness: Pt seen and examined at bedside. He is awake and alert. He denies shortness of breath. He is out of bed to chair. - Current Medication List Current Medications: Active Medications Acetaminophen (Tylenol -) 650 mg PO Q4H PRN PRN Reason: FEVER Last Admin: 12/19/17 22:42 Dose: 650 mg Albuterol/Ipratropium (Duoneb -) 1 amp NEB Q4H PRN PRN Reason: SHORTNESS OF BREATH Stop: 12/21/17 17:13 Allopurinol (Zyloprim -) 200 mg PO DAILY [facility] Last Admin: 12/20/17 10:00 Dose: 200 mg Alprazolam (Xanax -) 1 mg PO Q8H PRN PRN Reason: ANXIETY Last Admin: 12/19/17 22:31 Dose: 1 mg Amino Acids (Prosource No Carb Liquid Pkt) 30 ml PO BID@0800,1730 [facility] Last Admin: 12/20/17 10:00 Dose: 30 ml Aspirin (Ecotrin -) 81 mg PO DAILY [facility] Last Admin: 12/20/17 10:00 Dose: 81 mg Atorvastatin Calcium (Lipitor -) 40 mg PO HS [facility] Last Admin: 12/19/17 22:23 Dose: 40 mg Ferrous Sulfate (Feosol -) 325 mg PO BID [facility] Last Admin: 12/20/17 10:00 Dose: 325 mg Cefepime HCl 2 gm/ Dextrose 100 mls @ 200 mls/hr IVPB BID [facility]; Protocol Last Admin: 12/20/17 10:02 Dose: 200 mls/hr Metronidazole (Flagyl 500mg Premixed Ivpb -) 500 mg in 100 mls @ 100 mls/hr IVPB Q8H-IV [facility] Last Admin: 12/20/17 10:00 Dose: 100 mls/hr Multivitamins/Minerals/Vitamin C (Tab-A-Vit -) 1 tab PO DAILY [facility] Last Admin: 12/20/17 10:00 Dose: 1 tab Ranitidine HCl (Zantac -) 150 mg PO BID [facility] Last Admin: 12/20/17 10:00 Dose: 150 mg Tbo-Filgrastim (Granix -) 480 mcg SQ DAILY [facility] Last Admin: 12/19/17 17:44 Dose: 480 mcg Tramadol HCl (Ultram -) 50 mg PO Q6H PRN PRN Reason: PAIN LEVEL 6-10 Last Admin: 12/20/17 00:15 Dose: 50 mg Valacyclovir HCl (Valtrex -) 1,000 mg PO BID [facility] Last Admin: 12/20/17 10:00 Dose: 1,000 mg Voriconazole (Vfend (Restricted To Id)) 200 mg PO BIDWM [facility] Last Admin: 12/20/17 10:01 Dose: 200 mg - Objective Vital Signs: Vital Signs Temperature 99.4 F 12/20/17 09:00 Pulse Rate 96 H 12/20/17 09:00 Respiratory Rate 20 12/20/17 09:00 Blood Pressure 126/59 12/20/17 09:00 O2 Sat by Pulse Oximetry (%) 98 12/19/17 22:00 Constitutional: Yes: Calm Eyes: Yes: Conjunctiva Clear HENT: Yes: Atraumatic Neck: Yes: Supple Cardiovascular: Yes: S1, S2 Respiratory: Yes: On Nasal O2 Gastrointestinal: Yes: Soft, Abdomen, Obese Musculoskeletal: Yes: WNL Edema: No Neurological: Yes: Oriented Psychiatric: Yes: Oriented Labs: CBC, BMP 12/19/17 06:30 12/20/17 06:36 INR, PTT INR 1.19 (0.82-1.09) H 12/12/17 10:40 Problem List - Problems (1) Acute kidney injury Code(s): N17.9 - ACUTE KIDNEY FAILURE, UNSPECIFIED (2) Anemia Code(s): D64.9 - ANEMIA, UNSPECIFIED Qualifiers: Anemia type: unspecified type Qualified Code(s): D64.9 - Anemia, unspecified Assessment/Plan Current Medications Generic Name Dose Route Start Last Admin Trade Name Freq PRN Reason Stop Dose Admin Acetaminophen 650 mg 12/14/17 09:42 12/19/17 22:42 Tylenol - PO 650 mg Q4H PRN Administration FEVER Albuterol/Ipratropium 1 amp 12/19/17 17:14 Duoneb - NEB 12/21/17 17:13 Q4H PRN SHORTNESS OF BREATH Allopurinol 200 mg 12/13/17 10:00 12/20/17 10:00 Zyloprim - PO 200 mg DAILY [facility] Administration Alprazolam 1 mg 12/18/17 15:17 12/19/17 22:31 Xanax - PO 1 mg Q8H PRN Administration ANXIETY Amino Acids 30 ml 12/17/17 17:30 12/20/17 10:00 Prosource No Carb Liquid Pkt PO 30 ml BID@0800,1730 [facility] Administration Aspirin 81 mg 12/13/17 10:00 12/20/17 10:00 Ecotrin - PO 81 mg DAILY [facility] Administration Atorvastatin Calcium 40 mg 12/12/17 22:00 12/19/17 22:23 Lipitor - PO 40 mg HS [facility] Administration Ferrous Sulfate 325 mg 12/12/17 22:00 12/20/17 10:00 Feosol - PO 325 mg BID [facility] Administration Cefepime HCl 2 gm/ Dextrose 100 mls @ 200 mls/hr 12/15/17 22:00 12/20/17 10: 02 IVPB 200 mls/hr BID [facility] Administration Protocol Metronidazole 500 mg in 100 mls @ 100 mls/hr 12/17/17 10:00 12/20/17 10:00 Flagyl 500mg Premixed Ivpb - IVPB 100 mls/hr Q8H-IV [facility] Administration Multivitamins/Minerals/Vitamin C 1 tab 12/17/17 10:00 12/20/17 10:00 Tab-A-Vit - PO 1 tab DAILY [facility] Administration Ranitidine HCl 150 mg 12/12/17 22:00 12/20/17 10:00 Zantac - PO 150 mg BID [facility] Administration Tbo-Filgrastim 480 mcg 12/15/17 20:00 12/19/17 17:44 Granix - SQ 480 mcg DAILY [facility] Administration Tramadol HCl 50 mg 12/19/17 17:45 12/20/17 00:15 Ultram - PO 50 mg Q6H PRN Administration PAIN LEVEL 6-10 Valacyclovir HCl 1,000 mg 12/15/17 12:30 12/20/17 10:00 Valtrex - PO 1,000 mg BID [facility] Administration Voriconazole 200 mg 12/14/17 17:30 12/20/17 10:01 Vfend (Restricted To Id) PO 200 mg BIDWM [facility] Administration Impression 1. history of hyponatremia 2. anemia 3. leukopenia 4. hx lung cancer 5. hx melanoma 6. CAD 7. gout 8. fever 9. NUBIA 10. neutropenic fever Plan - cont to monitor renal function - monitor hg - NUBIA is resolving - encourage PO intake - will follow Dr Bray
--- NOTE | 2017-12-20 15:15 | PN ---
Progress Note (short form) - Note Progress Note: Pt seen and examined . feels tired/SOB/no chest pain O/E: General: in no acute distress HEENT: NCAT Cor: RRR Lungs:poor inspiratory effort LE: No CCE Last Vital Signs Temp Pulse Resp BP Pulse Ox 98.2 F 87 22 142/56 98 12/19/17 14:01 12/19/17 14:01 12/19/17 14:01 12/19/17 14:01 12/19/17 09:00 CBC, BMP 12/19/17 06:30 12/19/17 06:30 Current Medications Generic Name Dose Route Start Last Admin Trade Name Freq PRN Reason Stop Dose Admin Acetaminophen 650 mg 12/14/17 09:42 12/18/17 00:01 Tylenol - PO 650 mg Q4H PRN Administration FEVER Allopurinol 200 mg 12/13/17 10:00 12/19/17 10:51 Zyloprim - PO 200 mg DAILY [facility] Administration Alprazolam 1 mg 12/18/17 15:17 12/18/17 21:33 Xanax - PO 1 mg Q8H PRN Administration ANXIETY Amino Acids 30 ml 12/17/17 17:30 12/19/17 10:48 Prosource No Carb Liquid Pkt PO 30 ml BID@0800,1730 [facility] Administration Aspirin 81 mg 12/13/17 10:00 12/19/17 10:50 Ecotrin - PO 81 mg DAILY [facility] Administration Atorvastatin Calcium 40 mg 12/12/17 22:00 12/18/17 21:34 Lipitor - PO 40 mg HS [facility] Administration Ferrous Sulfate 325 mg 12/12/17 22:00 12/19/17 10:50 Feosol - PO 325 mg BID [facility] Administration Cefepime HCl 2 gm/ Dextrose 100 mls @ 200 mls/hr 12/15/17 22:00 12/19/17 10: 52 IVPB 200 mls/hr BID [facility] Administration Protocol Metronidazole 500 mg in 100 mls @ 100 mls/hr 12/17/17 10:00 12/19/17 10:49 Flagyl 500mg Premixed Ivpb - IVPB 100 mls/hr Q8H-IV [facility] Administration Multivitamins/Minerals/Vitamin C 1 tab 12/17/17 10:00 12/19/17 10:51 Tab-A-Vit - PO 1 tab DAILY [facility] Administration Ranitidine HCl 150 mg 12/12/17 22:00 12/19/17 10:51 Zantac - PO 150 mg BID [facility] Administration Tbo-Filgrastim 480 mcg 12/15/17 20:00 12/18/17 12:09 Granix - SQ 480 mcg DAILY [facility] Administration Valacyclovir HCl 1,000 mg 12/15/17 12:30 12/19/17 10:50 Valtrex - PO 1,000 mg BID [facility] Administration Voriconazole 200 mg 12/14/17 17:30 12/19/17 10:52 Vfend (Restricted To Id) PO 200 mg BIDWM [facility] Administration AML-- on no treatment (per pts choice)-- flow with 40% blasts . Neutropenic sepsis: on broad spectrum including anti-fungal/viral--?leukemia induced , but now with toe infection, appreciate ID, added vancomycin Supportive care with regular transfusion threshold. s/p pRBCs yesterday, repeat CBC in the am Neupogen -- c/w TLS ppx: c/w allopurinol OI ppx: Presently on anti-bacterial, fungal , viral poor PS/Guarded prognosis Palliative care consult pending
--- NOTE | 2017-12-20 15:29 | PN ---
Progress Note (short form) - Note Progress Note: febrile this afternoon, no chills or rigors quite alert s/p transfusion s/p removal toenail left toe NAD Vital Signs Period Temp Pulse Resp BP Sys/Alvares Pulse Ox Last 24 Hr 98.0 F-101.0 F 91-98 20-22 121-135/59-66 98-98 cor-rrr lungs clear abd soft,nt ext some erythema of the left big toe, nail removed CBC, BMP 12/19/17 06:30 12/20/17 06:36 Microbiology 12/16/17 17:10 Blood - Peripheral Venous Blood Culture - Preliminary NO GROWTH OBTAINED AFTER 72 HOURS, INCUBATION TO CONTINUE FOR 2 DAYS. 12/16/17 17:10 Blood - Peripheral Venous Blood Culture - Preliminary NO GROWTH OBTAINED AFTER 72 HOURS, INCUBATION TO CONTINUE FOR 2 DAYS. 12/12/17 12:01 Blood - Peripheral Venous Blood Culture - Final NO GROWTH AFTER 5 DAYS INCUBATION 12/12/17 10:40 Blood - Peripheral Venous Blood Culture - Final NO GROWTH AFTER 5 DAYS INCUBATION 12/12/17 13:40 Urine - Urine Clean Catch Urine Culture - Final NO GROWTH OBTAINED 12/12/17 16:40 Nasopharyngeal Swab Influenza Types A,B Antigen - Final 12/12/17 16:40 Nasopharyngeal Swab - Final a/p neutropenic fevers- continue cefepime,/flagyl cultures negative to date- ? 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
[2017-12-20] MEDS: VANCOMYCIN 1,000 MG in DEXTROSE 5%-WATER - 250 ML IVPB SCH (17:28)
[2017-12-20] MEDS: TBO-FILGRASTIM 480 MCG/0.8 ML DISP.SYRIN SQ SCH (18:19)
[2017-12-20] MEDS: ATORVASTATIN CA 40 MG TABLET (FP) PO SCH (22:00)
[2017-12-20] MEDS: ALPRAZolam 0.25 MG TABLET PO PRN (22:04)
[2017-12-21] MEDS: ACETAMINOPHEN 325 MG TABLET (FP) PO PRN ×2 (05:35→22:47)
[2017-12-21 08:40] LABS: BASO % 0.5 % (0-2.0); EOS % 0.4 % (0-4.5); HEMATOCRIT 26.5 % (35.4-49); LYMPH % 72.3 % (8-40); MCH 32.3 pg (25.7-33.7); MCHC 34.1 g/dl (32.0-35.9); MEAN CELL VOLUME 94.8 fl (80-96); MEAN PLT VOLUME 7.3 fl (7.5-11.1); MONO % 19.3 % (3.8-10.2); NEUT % 7.5 % (42.8-82.8); PLATELET COUNT 159 K/MM3 (134-434); RDW 19.1 % (11.9-15.9)
--- NOTE | 2017-12-21 09:36 | PN ---
Progress Note (short form) - Note Progress Note: POD#3. No pain. VSS +resolved ingrown nail normal post op Dressing change daily of betadine bandaid to lateral border left big toe. Will follow.
[2017-12-21] MEDS: AMINO ACIDS/PROTEIN HYDROLYS 30 ML LIQUID.PKT PO SCH ×2 (09:41→17:31)
[2017-12-21] MEDS: RANITIDINE HCL 150 MG TABLET (FP) PO SCH ×2 (09:42→22:28)
[2017-12-21] MEDS: ALLOPURINOL 100 MG TABLET (FP) PO SCH (09:42)
[2017-12-21] MEDS: FERROUS SO4 325 MG TABLET (FP) PO SCH ×2 (09:42→22:29)
[2017-12-21] MEDS: valACYclovir HCL 500 MG TABLET (FP) PO SCH ×2 (09:42→22:28)
[2017-12-21] MEDS: MULTIVITAMINS (DAILY MVI) TABLET (FP) PO SCH (09:43)
[2017-12-21] MEDS: VORICONAZOLE 200 MG TABLET (RESTRICTED TO ID) PO SCH ×2 (09:43→17:31)
[2017-12-21] MEDS: ASPIRIN COATED 81 MG TABLET.EC PO SCH (09:43)
[2017-12-21] MEDS: CEFEPIME 2 GM in DEXTROSE 5%-WATER 100 ML IVPB SCH ×2 (09:44→22:28)
[2017-12-21 11:16] LABS: ANISOCYTOSIS 1+; PLATELET ESTIMATE NORMAL; TEAR DROP CELLS 1+
--- NOTE | 2017-12-21 11:38 | PN ---
Progress Note, Physician Chief Complaint: SITTING UP IN CHAIR ON NEBULIZER NO CHEST PAIN +SOB ON 02 NC POOR APPETITE - Current Medication List Current Medications: Active Medications Acetaminophen (Tylenol -) 650 mg PO Q4H PRN PRN Reason: FEVER Last Admin: 12/21/17 05:35 Dose: 650 mg Albuterol/Ipratropium (Duoneb -) 1 amp NEB Q4H PRN PRN Reason: SHORTNESS OF BREATH Stop: 12/21/17 17:13 Allopurinol (Zyloprim -) 200 mg PO DAILY [facility] Last Admin: 12/21/17 09:42 Dose: 200 mg Alprazolam (Xanax -) 1 mg PO Q8H PRN PRN Reason: ANXIETY Last Admin: 12/20/17 22:04 Dose: 1 mg Amino Acids (Prosource No Carb Liquid Pkt) 30 ml PO BID@0800,1730 [facility] Last Admin: 12/21/17 09:41 Dose: 30 ml Aspirin (Ecotrin -) 81 mg PO DAILY [facility] Last Admin: 12/21/17 09:43 Dose: 81 mg Atorvastatin Calcium (Lipitor -) 40 mg PO HS [facility] Last Admin: 12/20/17 22:00 Dose: 40 mg Ferrous Sulfate (Feosol -) 325 mg PO BID [facility] Last Admin: 12/21/17 09:42 Dose: 325 mg Cefepime HCl 2 gm/ Dextrose 100 mls @ 200 mls/hr IVPB BID [facility]; Protocol Last Admin: 12/21/17 09:44 Dose: 200 mls/hr Metronidazole (Flagyl 500mg Premixed Ivpb -) 500 mg in 100 mls @ 100 mls/hr IVPB Q8H-IV [facility] Last Admin: 12/21/17 09:44 Dose: 100 mls/hr Vancomycin HCl 1,000 mg/ (Dextrose) 250 mls @ 166.667 mls/hr IVPB DAILY@1700 [facility]; Protocol Last Admin: 12/20/17 17:28 Dose: 166.667 mls/hr Multivitamins/Minerals/Vitamin C (Tab-A-Vit -) 1 tab PO DAILY [facility] Last Admin: 12/21/17 09:43 Dose: 1 tab Ranitidine HCl (Zantac -) 150 mg PO BID [facility] Last Admin: 12/21/17 09:42 Dose: 150 mg Tbo-Filgrastim (Granix -) 480 mcg SQ DAILY [facility] Last Admin: 12/20/17 18:19 Dose: 480 mcg Tramadol HCl (Ultram -) 50 mg PO Q6H PRN PRN Reason: PAIN LEVEL 6-10 Last Admin: 12/20/17 22:07 Dose: 50 mg Valacyclovir HCl (Valtrex -) 1,000 mg PO BID [facility] Last Admin: 12/21/17 09:42 Dose: 1,000 mg Voriconazole (Vfend (Restricted To Id)) 200 mg PO BIDWM [facility] Last Admin: 12/21/17 09:43 Dose: 200 mg - Objective Vital Signs: Vital Signs Temperature 100.1 F H 12/21/17 05:54 Pulse Rate 109 H 12/21/17 05:54 Respiratory Rate 20 12/21/17 05:54 Blood Pressure 125/62 12/21/17 05:54 O2 Sat by Pulse Oximetry (%) 98 12/20/17 21:00 Constitutional: Yes: Mild Distress Eyes: Yes: WNL HENT: Yes: WNL Neck: Yes: WNL Cardiovascular: Yes: WNL Respiratory: Yes: On Nasal O2, Rhonchi Gastrointestinal: Yes: WNL Genitourinary: Yes: Incontinence Musculoskeletal: Yes: Muscle Weakness Extremities: Yes: WNL Edema: No Peripheral Pulses WNL: Yes Integumentary: Yes: WNL Wound/Incision: Yes: Clean/Dry, Dressing Dry and Intact Neurological: Yes: Other ...Motor Strength: LLE, RLE Psychiatric: Yes: Other Labs: CBC, BMP 12/21/17 07:49 12/20/17 06:36 INR, PTT INR 1.19 (0.82-1.09) H 12/12/17 10:40 Problem List - Problems (1) Acute kidney injury Code(s): N17.9 - ACUTE KIDNEY FAILURE, UNSPECIFIED (2) Fever Code(s): R50.9 - FEVER, UNSPECIFIED Qualifiers: Fever type: due to other condition Qualified Code(s): R50.81 - Fever presenting with conditions classified elsewhere (3) Neutropenia Code(s): D70.9 - NEUTROPENIA, UNSPECIFIED (4) Sepsis Code(s): A41.9 - SEPSIS, UNSPECIFIED ORGANISM (5) AML (acute myeloblastic leukemia) Code(s): C92.00 - ACUTE MYELOBLASTIC LEUKEMIA, NOT HAVING ACHIEVED REMISSION Qualifiers: Leukemia Active/Remission status: without remission Qualified Code(s): C92.00 - Acute myeloblastic leukemia, not having achieved remission (6) Anemia Code(s): D64.9 - ANEMIA, UNSPECIFIED Qualifiers: Anemia type: unspecified type Qualified Code(s): D64.9 - Anemia, unspecified (7) Chronic diastolic (congestive) heart failure Code(s): I50.32 - CHRONIC DIASTOLIC (CONGESTIVE) HEART FAILURE (8) Hx of CABG Code(s): Z95.1 - PRESENCE OF AORTOCORONARY BYPASS GRAFT (9) Weakness generalized Code(s): R53.1 - WEAKNESS Assessment/Plan IV PRBC TRANSFUSIONS NEEDED IV ABX ID AND ONC WORKUP IN PROGRESS DNR/DNI SIGNED NEBS OOB TO CHAIR POOR OVERALL PROGNOSIS
--- NOTE | 2017-12-21 12:12 | PN ---
Progress Note, Physician History of Present Illness: PULMONARY ALERT,OOB-CHAIR,STILL DYSPNEIC WITH MIN EXERTION - Current Medication List Current Medications: Active Medications Acetaminophen (Tylenol -) 650 mg PO Q4H PRN PRN Reason: FEVER Last Admin: 12/21/17 05:35 Dose: 650 mg Albuterol/Ipratropium (Duoneb -) 1 amp NEB Q4H PRN PRN Reason: SHORTNESS OF BREATH Stop: 12/21/17 17:13 Allopurinol (Zyloprim -) 200 mg PO DAILY [facility] Last Admin: 12/21/17 09:42 Dose: 200 mg Alprazolam (Xanax -) 1 mg PO Q8H PRN PRN Reason: ANXIETY Last Admin: 12/20/17 22:04 Dose: 1 mg Amino Acids (Prosource No Carb Liquid Pkt) 30 ml PO BID@0800,1730 [facility] Last Admin: 12/21/17 09:41 Dose: 30 ml Aspirin (Ecotrin -) 81 mg PO DAILY [facility] Last Admin: 12/21/17 09:43 Dose: 81 mg Atorvastatin Calcium (Lipitor -) 40 mg PO HS [facility] Last Admin: 12/20/17 22:00 Dose: 40 mg Ferrous Sulfate (Feosol -) 325 mg PO BID [facility] Last Admin: 12/21/17 09:42 Dose: 325 mg Cefepime HCl 2 gm/ Dextrose 100 mls @ 200 mls/hr IVPB BID [facility]; Protocol Last Admin: 12/21/17 09:44 Dose: 200 mls/hr Metronidazole (Flagyl 500mg Premixed Ivpb -) 500 mg in 100 mls @ 100 mls/hr IVPB Q8H-IV [facility] Last Admin: 12/21/17 09:44 Dose: 100 mls/hr Vancomycin HCl 1,000 mg/ (Dextrose) 250 mls @ 166.667 mls/hr IVPB DAILY@1700 [facility]; Protocol Last Admin: 12/20/17 17:28 Dose: 166.667 mls/hr Multivitamins/Minerals/Vitamin C (Tab-A-Vit -) 1 tab PO DAILY [facility] Last Admin: 12/21/17 09:43 Dose: 1 tab Ranitidine HCl (Zantac -) 150 mg PO BID [facility] Last Admin: 12/21/17 09:42 Dose: 150 mg Tbo-Filgrastim (Granix -) 480 mcg SQ DAILY [facility] Last Admin: 12/20/17 18:19 Dose: 480 mcg Tramadol HCl (Ultram -) 50 mg PO Q6H PRN PRN Reason: PAIN LEVEL 6-10 Last Admin: 12/20/17 22:07 Dose: 50 mg Valacyclovir HCl (Valtrex -) 1,000 mg PO BID [facility] Last Admin: 12/21/17 09:42 Dose: 1,000 mg Voriconazole (Vfend (Restricted To Id)) 200 mg PO BIDWM [facility] Last Admin: 12/21/17 09:43 Dose: 200 mg - Objective Vital Signs: Vital Signs Temperature 98.2 F 12/21/17 10:00 Pulse Rate 98 H 12/21/17 10:00 Respiratory Rate 20 12/21/17 10:00 Blood Pressure 140/50 12/21/17 10:00 O2 Sat by Pulse Oximetry (%) 98 12/20/17 21:00 Constitutional: Yes: Well Nourished, Calm Eyes: Yes: WNL HENT: Yes: WNL Neck: Yes: WNL Cardiovascular: Yes: Regular Rate and Rhythm, S1, S2 Respiratory: Yes: Rales (BIBASILAR RALES) Gastrointestinal: Yes: Normal Bowel Sounds, Soft Extremities: Yes: WNL Edema: No Labs: CBC, BMP 12/21/17 07:49 12/20/17 06:36 INR, PTT INR 1.19 (0.82-1.09) H 12/12/17 10:40 Problem List - Problems (1) Neutropenia Code(s): D70.9 - NEUTROPENIA, UNSPECIFIED (2) Fever Code(s): R50.9 - FEVER, UNSPECIFIED Qualifiers: Fever type: due to other condition Qualified Code(s): R50.81 - Fever presenting with conditions classified elsewhere (3) Sepsis Code(s): A41.9 - SEPSIS, UNSPECIFIED ORGANISM (4) AML (acute myeloblastic leukemia) Code(s): C92.00 - ACUTE MYELOBLASTIC LEUKEMIA, NOT HAVING ACHIEVED REMISSION Qualifiers: Leukemia Active/Remission status: without remission Qualified Code(s): C92.00 - Acute myeloblastic leukemia, not having achieved remission (5) Anemia Code(s): D64.9 - ANEMIA, UNSPECIFIED Qualifiers: Anemia type: unspecified type Qualified Code(s): D64.9 - Anemia, unspecified (6) Chronic diastolic (congestive) heart failure Code(s): I50.32 - CHRONIC DIASTOLIC (CONGESTIVE) HEART FAILURE (7) HLD (hyperlipidemia) Code(s): E78.5 - HYPERLIPIDEMIA, UNSPECIFIED (8) HTN (hypertension) Code(s): I10 - ESSENTIAL (PRIMARY) HYPERTENSION Qualifiers: Hypertension type: essential hypertension Qualified Code(s): I10 - Essential (primary) hypertension (9) Lung cancer Code(s): C34.90 - MALIGNANT NEOPLASM OF UNSP PART OF UNSP BRONCHUS OR LUNG Qualifiers: Laterality: unspecified laterality (10) Melanoma Code(s): C43.9 - MALIGNANT MELANOMA OF SKIN, UNSPECIFIED Qualifiers: Melanoma location: unspecified site Qualified Code(s): C43.9 - Malignant melanoma of skin, unspecified (11) Shortness of breath Code(s): R06.02 - SHORTNESS OF BREATH (12) Syncope Code(s): R55 - SYNCOPE AND COLLAPSE Qualifiers: Syncope type: unspecified Qualified Code(s): R55 - Syncope and collapse Assessment/Plan IMP NEUTROPENIC FEVER AML ANEMIA SYNCOPE H/O MELANOMA H/O LUNG CA S/P RESECTION PULMONARY NODULE ?MALIGNANT ASHD S/P CABG ACUTE KIDNEY INJURY HTN DIASTOLIC HF PLAN ABX PER ID INHALED BRONCHODILATORS NORMAL TRANSFUSION THRESHOLD IVF MONITOR LYTES,RENAL FUNCTION,H+H,CBC SUPPLEMENTAL O2 OUTPATIENT F/U PULMONARY NODULE JACE HANSEN Problem List - Problems (1) Neutropenia Code(s): D70.9 - NEUTROPENIA, UNSPECIFIED (2) Fever Code(s): R50.9 - FEVER, UNSPECIFIED Qualifiers: Fever type: due to other condition Qualified Code(s): R50.81 - Fever presenting with conditions classified elsewhere (3) Sepsis Code(s): A41.9 - SEPSIS, UNSPECIFIED ORGANISM (4) AML (acute myeloblastic leukemia) Code(s): C92.00 - ACUTE MYELOBLASTIC LEUKEMIA, NOT HAVING ACHIEVED REMISSION Qualifiers: Leukemia Active/Remission status: without remission Qualified Code(s): C92.00 - Acute myeloblastic leukemia, not having achieved remission (5) Anemia Code(s): D64.9 - ANEMIA, UNSPECIFIED Qualifiers: Anemia type: unspecified type Qualified Code(s): D64.9 - Anemia, unspecified (6) Chronic diastolic (congestive) heart failure Code(s): I50.32 - CHRONIC DIASTOLIC (CONGESTIVE) HEART FAILURE (7) HLD (hyperlipidemia) Code(s): E78.5 - HYPERLIPIDEMIA, UNSPECIFIED (8) HTN (hypertension) Code(s): I10 - ESSENTIAL (PRIMARY) HYPERTENSION Qualifiers: Hypertension type: essential hypertension Qualified Code(s): I10 - Essential (primary) hypertension (9) Lung cancer Code(s): C34.90 - MALIGNANT NEOPLASM OF UNSP PART OF UNSP BRONCHUS OR LUNG Qualifiers: Laterality: unspecified laterality (10) Melanoma Code(s): C43.9 - MALIGNANT MELANOMA OF SKIN, UNSPECIFIED Qualifiers: Melanoma location: unspecified site Qualified Code(s): C43.9 - Malignant melanoma of skin, unspecified (11) Shortness of breath Code(s): R06.02 - SHORTNESS OF BREATH (12) Syncope Code(s): R55 - SYNCOPE AND COLLAPSE Qualifiers: Syncope type: unspecified Qualified Code(s): R55 - Syncope and collapse
--- NOTE | 2017-12-21 15:33 | PN ---
Progress Note, Physician History of Present Illness: Pt seen and examined at bedside. He is awake and alert. He denies shortness of breath. - Current Medication List Current Medications: Active Medications Acetaminophen (Tylenol -) 650 mg PO Q4H PRN PRN Reason: FEVER Last Admin: 12/21/17 05:35 Dose: 650 mg Albuterol/Ipratropium (Duoneb -) 1 amp NEB Q4H PRN PRN Reason: SHORTNESS OF BREATH Stop: 12/21/17 17:13 Last Admin: 12/21/17 11:05 Dose: 1 amp Allopurinol (Zyloprim -) 200 mg PO DAILY [facility] Last Admin: 12/21/17 09:42 Dose: 200 mg Alprazolam (Xanax -) 1 mg PO Q8H PRN PRN Reason: ANXIETY Last Admin: 12/20/17 22:04 Dose: 1 mg Amino Acids (Prosource No Carb Liquid Pkt) 30 ml PO BID@0800,1730 [facility] Last Admin: 12/21/17 09:41 Dose: 30 ml Aspirin (Ecotrin -) 81 mg PO DAILY [facility] Last Admin: 12/21/17 09:43 Dose: 81 mg Atorvastatin Calcium (Lipitor -) 40 mg PO HS [facility] Last Admin: 12/20/17 22:00 Dose: 40 mg Ferrous Sulfate (Feosol -) 325 mg PO BID [facility] Last Admin: 12/21/17 09:42 Dose: 325 mg Cefepime HCl 2 gm/ Dextrose 100 mls @ 200 mls/hr IVPB BID [facility]; Protocol Last Admin: 12/21/17 09:44 Dose: 200 mls/hr Metronidazole (Flagyl 500mg Premixed Ivpb -) 500 mg in 100 mls @ 100 mls/hr IVPB Q8H-IV [facility] Last Admin: 12/21/17 09:44 Dose: 100 mls/hr Vancomycin HCl 1,000 mg/ (Dextrose) 250 mls @ 166.667 mls/hr IVPB DAILY@1700 [facility]; Protocol Last Admin: 12/20/17 17:28 Dose: 166.667 mls/hr Multivitamins/Minerals/Vitamin C (Tab-A-Vit -) 1 tab PO DAILY [facility] Last Admin: 12/21/17 09:43 Dose: 1 tab Ranitidine HCl (Zantac -) 150 mg PO BID [facility] Last Admin: 12/21/17 09:42 Dose: 150 mg Tbo-Filgrastim (Granix -) 480 mcg SQ DAILY [facility] Last Admin: 12/20/17 18:19 Dose: 480 mcg Tramadol HCl (Ultram -) 50 mg PO Q6H PRN PRN Reason: PAIN LEVEL 6-10 Last Admin: 12/20/17 22:07 Dose: 50 mg Valacyclovir HCl (Valtrex -) 1,000 mg PO BID [facility] Last Admin: 12/21/17 09:42 Dose: 1,000 mg Voriconazole (Vfend (Restricted To Id)) 200 mg PO BIDWM [facility] Last Admin: 12/21/17 09:43 Dose: 200 mg - Objective Vital Signs: Vital Signs Temperature 97.7 F 12/21/17 14:15 Pulse Rate 92 H 12/21/17 14:15 Respiratory Rate 22 12/21/17 14:15 Blood Pressure 141/60 12/21/17 14:15 O2 Sat by Pulse Oximetry (%) 98 12/20/17 21:00 Constitutional: Yes: Calm Eyes: Yes: Conjunctiva Clear HENT: Yes: Atraumatic Cardiovascular: Yes: S1, S2 Respiratory: Yes: On Nasal O2 Gastrointestinal: Yes: Soft Genitourinary: Yes: WNL Musculoskeletal: Yes: WNL Edema: No Neurological: Yes: Oriented Psychiatric: Yes: Oriented Labs: CBC, BMP 12/21/17 07:49 12/20/17 06:36 INR, PTT INR 1.19 (0.82-1.09) H 12/12/17 10:40 Problem List - Problems (1) Acute kidney injury Code(s): N17.9 - ACUTE KIDNEY FAILURE, UNSPECIFIED (2) Anemia Code(s): D64.9 - ANEMIA, UNSPECIFIED Qualifiers: Anemia type: unspecified type Qualified Code(s): D64.9 - Anemia, unspecified Assessment/Plan Current Medications Generic Name Dose Route Start Last Admin Trade Name Freq PRN Reason Stop Dose Admin Acetaminophen 650 mg 12/14/17 09:42 12/21/17 05:35 Tylenol - PO 650 mg Q4H PRN Administration FEVER Albuterol/Ipratropium 1 amp 12/19/17 17:14 12/21/17 11:05 Duoneb - NEB 12/21/17 17:13 1 amp Q4H PRN Administration SHORTNESS OF BREATH Allopurinol 200 mg 12/13/17 10:00 12/21/17 09:42 Zyloprim - PO 200 mg DAILY [facility] Administration Alprazolam 1 mg 12/18/17 15:17 12/20/17 22:04 Xanax - PO 1 mg Q8H PRN Administration ANXIETY Amino Acids 30 ml 12/17/17 17:30 12/21/17 09:41 Prosource No Carb Liquid Pkt PO 30 ml BID@0800,1730 [facility] Administration Aspirin 81 mg 12/13/17 10:00 12/21/17 09:43 Ecotrin - PO 81 mg DAILY [facility] Administration Atorvastatin Calcium 40 mg 12/12/17 22:00 12/20/17 22:00 Lipitor - PO 40 mg HS [facility] Administration Ferrous Sulfate 325 mg 12/12/17 22:00 12/21/17 09:42 Feosol - PO 325 mg BID [facility] Administration Cefepime HCl 2 gm/ Dextrose 100 mls @ 200 mls/hr 12/15/17 22:00 12/21/17 09: 44 IVPB 200 mls/hr BID [facility] Administration Protocol Metronidazole 500 mg in 100 mls @ 100 mls/hr 12/17/17 10:00 12/21/17 09:44 Flagyl 500mg Premixed Ivpb - IVPB 100 mls/hr Q8H-IV [facility] Administration Vancomycin HCl 1,000 mg/ 250 mls @ 166.667 mls/hr 12/20/17 17:00 12/20/17 17: 28 Dextrose IVPB 166.667 mls/hr DAILY@1700 [facility] Administration Protocol Multivitamins/Minerals/Vitamin C 1 tab 12/17/17 10:00 12/21/17 09:43 Tab-A-Vit - PO 1 tab DAILY [facility] Administration Ranitidine HCl 150 mg 12/12/17 22:00 12/21/17 09:42 Zantac - PO 150 mg BID [facility] Administration Tbo-Filgrastim 480 mcg 12/15/17 20:00 12/20/17 18:19 Granix - SQ 480 mcg DAILY [facility] Administration Tramadol HCl 50 mg 12/19/17 17:45 12/20/17 22:07 Ultram - PO 50 mg Q6H PRN Administration PAIN LEVEL 6-10 Valacyclovir HCl 1,000 mg 12/15/17 12:30 12/21/17 09:42 Valtrex - PO 1,000 mg BID [facility] Administration Voriconazole 200 mg 12/14/17 17:30 12/21/17 09:43 Vfend (Restricted To Id) PO 200 mg BIDWM [facility] Administration Impression 1. history of hyponatremia 2. anemia 3. leukopenia 4. hx lung cancer 5. hx melanoma 6. CAD 7. gout 8. fever 9. NUBIA 10. neutropenic fever Plan - check bmp - renal function had been stabilizing - NUBIA resolving - monitor hg - encourage PO intake - will follow Dr Bray
[2017-12-21] MEDS: TBO-FILGRASTIM 480 MCG/0.8 ML DISP.SYRIN SQ SCH (17:31)
--- NOTE | 2017-12-21 17:31 | PN ---
Progress Note, Physician History of Present Illness: Developed rash on back, R flank, buttock Last new med added vancomycin Depressed affect Denies pruritis Offer no complaints Intermittantly febrile Apears mildly dyspneic at rest No c/o chills - Current Medication List Current Medications: Active Medications Acetaminophen (Tylenol -) 650 mg PO Q4H PRN PRN Reason: FEVER Last Admin: 12/21/17 05:35 Dose: 650 mg Allopurinol (Zyloprim -) 200 mg PO DAILY [facility] Last Admin: 12/21/17 09:42 Dose: 200 mg Alprazolam (Xanax -) 1 mg PO Q8H PRN PRN Reason: ANXIETY Last Admin: 12/20/17 22:04 Dose: 1 mg Amino Acids (Prosource No Carb Liquid Pkt) 30 ml PO BID@0800,1730 [facility] Last Admin: 12/21/17 09:41 Dose: 30 ml Aspirin (Ecotrin -) 81 mg PO DAILY [facility] Last Admin: 12/21/17 09:43 Dose: 81 mg Atorvastatin Calcium (Lipitor -) 40 mg PO HS [facility] Last Admin: 12/20/17 22:00 Dose: 40 mg Ferrous Sulfate (Feosol -) 325 mg PO BID [facility] Last Admin: 12/21/17 09:42 Dose: 325 mg Cefepime HCl 2 gm/ Dextrose 100 mls @ 200 mls/hr IVPB BID [facility]; Protocol Last Admin: 12/21/17 09:44 Dose: 200 mls/hr Metronidazole (Flagyl 500mg Premixed Ivpb -) 500 mg in 100 mls @ 100 mls/hr IVPB Q8H-IV [facility] Last Admin: 12/21/17 09:44 Dose: 100 mls/hr Multivitamins/Minerals/Vitamin C (Tab-A-Vit -) 1 tab PO DAILY [facility] Last Admin: 12/21/17 09:43 Dose: 1 tab Ranitidine HCl (Zantac -) 150 mg PO BID [facility] Last Admin: 12/21/17 09:42 Dose: 150 mg Tbo-Filgrastim (Granix -) 480 mcg SQ DAILY [facility] Last Admin: 12/20/17 18:19 Dose: 480 mcg Tramadol HCl (Ultram -) 50 mg PO Q6H PRN PRN Reason: PAIN LEVEL 6-10 Last Admin: 12/20/17 22:07 Dose: 50 mg Valacyclovir HCl (Valtrex -) 1,000 mg PO BID [facility] Last Admin: 12/21/17 09:42 Dose: 1,000 mg Voriconazole (Vfend (Restricted To Id)) 200 mg PO BIDWM [facility] Last Admin: 12/21/17 09:43 Dose: 200 mg - Objective Vital Signs: Vital Signs Temperature 97.7 F 12/21/17 14:15 Pulse Rate 92 H 12/21/17 14:15 Respiratory Rate 22 12/21/17 14:15 Blood Pressure 141/60 12/21/17 14:15 O2 Sat by Pulse Oximetry (%) 98 12/21/17 09:00 Constitutional: Yes: No Distress Eyes: Yes: Conjunctiva Clear Cardiovascular: Yes: Regular Rate and Rhythm, S1, S2 Respiratory: No: Wheezes Gastrointestinal: Yes: Normal Bowel Sounds, Soft. No: Tenderness Labs: CBC, BMP 12/21/17 07:49 12/20/17 06:36 INR, PTT INR 1.19 (0.82-1.09) H 12/12/17 10:40 Assessment/Plan ? Drug rash Febrile neutropenia AML Azotemia Continue cefepime/ flagyl day#8 Neutropenic precautions Prognosis poor
[2017-12-21] MEDS: VANCOMYCIN 1,000 MG in DEXTROSE 5%-WATER - 250 ML IVPB SCH (17:32)
[2017-12-21] MEDS ORDERED: ALBUTEROL SO4 2.5/IPRATROPIUM 0.5 INH SOL 3 ML VIAL.NEB. NEB PRN (21:10)
[2017-12-21] MEDS ORDERED: PT OWN MED DRAWER 7, Y5N ONE (22:24)
[2017-12-21] MEDS: ALPRAZolam 0.25 MG TABLET PO PRN (22:28)
[2017-12-21] MEDS: ATORVASTATIN CA 40 MG TABLET (FP) PO SCH (22:28)
--- NOTE | 2017-12-22 00:01 | PN ---
Progress Note (short form) - Note Progress Note: PAtient seen and examined Mildly short of breath Last Vital Signs Temp Pulse Resp BP Pulse Ox 99.0 F 94 H 20 144/60 98 12/22/17 07:03 12/22/17 07:03 12/22/17 07:03 12/22/17 07:03 12/21/17 21:00 Cor: RSR, No murmurs, No gallops Lungs: Clear to P&A Abd: Soft, Normal bowel sounds, No organomegaly Ext:No significant edema Abnormal Lab Results 12/18/17 12/21/17 14:45 07:49 WBC 3.0 L D RBC 2.80 L Hgb 9.0 L Hct 26.5 L RDW 19.1 H MPV 7.3 L Neutrophils % 7.5 L D Neutrophils % (Manual) 14.5 L D Lymphocytes % 72.3 H D Lymphocytes % (Manual) 57.7 H Monocytes % 19.3 H Monocytes % (Manual) 18 H D Blast Cells % (Manual) 7 H D Crossmatch See Detail Active Medications Generic Name Dose Route Start Last Admin Trade Name Freq PRN Reason Stop Dose Admin Acetaminophen 650 mg 12/22/17 07:57 Tylenol - PO Q4H PRN FEVER Albuterol/Ipratropium 1 amp 12/21/17 21:12 Duoneb - NEB Q4H PRN SHORTNESS OF BREATH Allopurinol 200 mg 12/22/17 10:00 Zyloprim - PO DAILY [facility] Alprazolam 1 mg 12/18/17 15:17 12/21/17 22:28 Xanax - PO 1 mg Q8H PRN Administration ANXIETY Amino Acids 30 ml 12/17/17 17:30 12/22/17 08:19 Prosource No Carb Liquid Pkt PO 30 ml BID@0800,1730 [facility] Administration Aspirin 81 mg 12/22/17 10:00 Ecotrin - PO DAILY [facility] Atorvastatin Calcium 40 mg 12/22/17 22:00 Lipitor - PO HS [facility] Ferrous Sulfate 325 mg 12/22/17 10:00 Feosol - PO BID [facility] Metronidazole 500 mg in 100 mls @ 100 mls/hr 12/17/17 10:00 12/22/17 02:15 Flagyl 500mg Premixed Ivpb - IVPB 100 mls/hr Q8H-IV [facility] Administration Cefepime HCl 2 gm/ Dextrose 100 mls @ 200 mls/hr 12/22/17 10:00 IVPB BID [facility] Protocol Multivitamins/Minerals/Vitamin C 1 tab 12/17/17 10:00 12/21/17 09:43 Tab-A-Vit - PO 1 tab DAILY [facility] Administration Ranitidine HCl 150 mg 12/22/17 10:00 Zantac - PO BID [facility] Tbo-Filgrastim 480 mcg 12/15/17 20:00 12/21/17 17:31 Granix - SQ 480 mcg DAILY [facility] Administration Tramadol HCl 50 mg 12/19/17 17:45 12/20/17 22:07 Ultram - PO 50 mg Q6H PRN Administration PAIN LEVEL 6-10 Valacyclovir HCl 1,000 mg 12/22/17 10:00 Valtrex - PO BID [facility] Voriconazole 200 mg 12/22/17 08:00 Vfend (Restricted To Id) PO BIDWM [facility] A/P 82 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
--- NOTE | 2017-12-22 08:06 | PN ---
Progress Note, Physician - Current Medication List Current Medications: Active Medications Acetaminophen (Tylenol -) 650 mg PO Q4H PRN PRN Reason: FEVER Albuterol/Ipratropium (Duoneb -) 1 amp NEB Q4H PRN PRN Reason: SHORTNESS OF BREATH Allopurinol (Zyloprim -) 200 mg PO DAILY [facility] Alprazolam (Xanax -) 1 mg PO Q8H PRN PRN Reason: ANXIETY Last Admin: 12/21/17 22:28 Dose: 1 mg Amino Acids (Prosource No Carb Liquid Pkt) 30 ml PO BID@0800,1730 [facility] Last Admin: 12/21/17 17:31 Dose: 30 ml Aspirin (Ecotrin -) 81 mg PO DAILY [facility] Atorvastatin Calcium (Lipitor -) 40 mg PO HS [facility] Ferrous Sulfate (Feosol -) 325 mg PO BID [facility] Metronidazole (Flagyl 500mg Premixed Ivpb -) 500 mg in 100 mls @ 100 mls/hr IVPB Q8H-IV [facility] Last Admin: 12/22/17 02:15 Dose: 100 mls/hr Cefepime HCl 2 gm/ Dextrose 100 mls @ 200 mls/hr IVPB BID [facility]; Protocol Multivitamins/Minerals/Vitamin C (Tab-A-Vit -) 1 tab PO DAILY [facility] Last Admin: 12/21/17 09:43 Dose: 1 tab Ranitidine HCl (Zantac -) 150 mg PO BID [facility] Tbo-Filgrastim (Granix -) 480 mcg SQ DAILY [facility] Last Admin: 12/21/17 17:31 Dose: 480 mcg Tramadol HCl (Ultram -) 50 mg PO Q6H PRN PRN Reason: PAIN LEVEL 6-10 Last Admin: 12/20/17 22:07 Dose: 50 mg Valacyclovir HCl (Valtrex -) 1,000 mg PO BID [facility] Voriconazole (Vfend (Restricted To Id)) 200 mg PO BIDWM [facility] - Objective Vital Signs: Vital Signs Temperature 99.0 F 12/22/17 07:03 Pulse Rate 94 H 12/22/17 07:03 Respiratory Rate 20 12/22/17 07:03 Blood Pressure 144/60 12/22/17 07:03 O2 Sat by Pulse Oximetry (%) 98 12/21/17 21:00 Labs: INR, PTT INR 1.19 (0.82-1.09) H 12/12/17 10:40 Problem List - Problems (1) Sepsis Code(s): A41.9 - SEPSIS, UNSPECIFIED ORGANISM (2) Acute kidney injury Code(s): N17.9 - ACUTE KIDNEY FAILURE, UNSPECIFIED (3) AML (acute myeloblastic leukemia) Code(s): C92.00 - ACUTE MYELOBLASTIC LEUKEMIA, NOT HAVING ACHIEVED REMISSION Qualifiers: Qualified Code(s): C92.00 - Acute myeloblastic leukemia, not having achieved remission (4) Anemia Code(s): D64.9 - ANEMIA, UNSPECIFIED Qualifiers: Qualified Code(s): D64.9 - Anemia, unspecified (5) Hx of CABG Code(s): Z95.1 - PRESENCE OF AORTOCORONARY BYPASS GRAFT (6) Syncope Code(s): R55 - SYNCOPE AND COLLAPSE Qualifiers: Qualified Code(s): R55 - Syncope and collapse
[2017-12-22] MEDS: AMINO ACIDS/PROTEIN HYDROLYS 30 ML LIQUID.PKT PO SCH ×2 (08:19→18:13)
[2017-12-22 08:25] LABS: BASO % 0.4 % (0-2.0); EOS % 0.7 % (0-4.5); HEMATOCRIT 27.4 % (35.4-49); HEMOGLOBIN 9.4 GM/dL (11.7-16.9); LYMPH % 84.7 % (8-40); MCH 32.6 pg (25.7-33.7); MCHC 34.2 g/dl (32.0-35.9); MEAN CELL VOLUME 95.5 fl (80-96); MEAN PLT VOLUME 7.3 fl (7.5-11.1); MONO % 6.5 % (3.8-10.2); NEUT % 7.7 % (42.8-82.8); PLATELET COUNT 187 K/MM3 (134-434); RBC 2.87 M/mm3 (4.00-5.60); WHITE BLOOD COUNT 2.3 K/mm3 (4.0-10.0)
[2017-12-22 08:35] LABS: CHLORIDE 106 mmol/L (98-107); POTASSIUM 4.5 mmol/L (3.5-5.1); SODIUM 137 mmol/L (136-145)
[2017-12-22 08:52] LABS: ANION GAP 9 (8-16); BLOOD UREA NITROGEN 41 mg/dL (7-18); CO2 22 mmol/L (21-32); CREATININE 1.5 mg/dL (0.7-1.3); GLUCOSE,RANDOM 86 mg/dL (74-106)
[2017-12-22 09:08] LABS: CALCIUM 8.3 mg/dL (8.5-10.1)
[2017-12-22] MEDS ORDERED: PT OWN MED DRAWER 7, Y5N ONE (09:25)
[2017-12-22] MEDS: MULTIVITAMINS (DAILY MVI) TABLET (FP) PO SCH (09:28)
[2017-12-22] MEDS: RANITIDINE HCL 150 MG TABLET (FP) PO SCH ×2 (09:51→22:20)
[2017-12-22] MEDS: FERROUS SO4 325 MG TABLET (FP) PO SCH ×2 (09:52→22:19)
[2017-12-22] MEDS: ALLOPURINOL 100 MG TABLET (FP) PO SCH (09:54)
--- NOTE | 2017-12-22 09:56 | PN ---
Progress Note, Physician History of Present Illness: pulmonary alert,less dyspneic.tmax 100.6 - Current Medication List Current Medications: Active Medications Acetaminophen (Tylenol -) 650 mg PO Q4H PRN PRN Reason: FEVER Albuterol/Ipratropium (Duoneb -) 1 amp NEB Q4H PRN PRN Reason: SHORTNESS OF BREATH Allopurinol (Zyloprim -) 200 mg PO DAILY [facility] Alprazolam (Xanax -) 1 mg PO Q8H PRN PRN Reason: ANXIETY Last Admin: 12/21/17 22:28 Dose: 1 mg Amino Acids (Prosource No Carb Liquid Pkt) 30 ml PO BID@0800,1730 [facility] Last Admin: 12/22/17 08:19 Dose: 30 ml Aspirin (Ecotrin -) 81 mg PO DAILY [facility] Atorvastatin Calcium (Lipitor -) 40 mg PO HS [facility] Ferrous Sulfate (Feosol -) 325 mg PO BID [facility] Metronidazole (Flagyl 500mg Premixed Ivpb -) 500 mg in 100 mls @ 100 mls/hr IVPB Q8H-IV [facility] Last Admin: 12/22/17 09:28 Dose: 100 mls/hr Cefepime HCl 2 gm/ Dextrose 100 mls @ 200 mls/hr IVPB BID [facility]; Protocol Multivitamins/Minerals/Vitamin C (Tab-A-Vit -) 1 tab PO DAILY [facility] Last Admin: 12/22/17 09:28 Dose: 1 tab Ranitidine HCl (Zantac -) 150 mg PO BID [facility] Tbo-Filgrastim (Granix -) 480 mcg SQ DAILY [facility] Last Admin: 12/21/17 17:31 Dose: 480 mcg Tramadol HCl (Ultram -) 50 mg PO Q6H PRN PRN Reason: PAIN LEVEL 6-10 Last Admin: 12/20/17 22:07 Dose: 50 mg Valacyclovir HCl (Valtrex -) 1,000 mg PO BID [facility] Voriconazole (Vfend (Restricted To Id)) 200 mg PO BIDWM [facility] - Objective Vital Signs: Vital Signs Temperature 99.0 F 12/22/17 07:03 Pulse Rate 94 H 12/22/17 07:03 Respiratory Rate 20 12/22/17 07:03 Blood Pressure 144/60 12/22/17 07:03 O2 Sat by Pulse Oximetry (%) 98 12/21/17 21:00 Constitutional: Yes: Well Nourished, Calm Eyes: Yes: WNL HENT: Yes: WNL Neck: Yes: WNL Cardiovascular: Yes: Regular Rate and Rhythm, S1, S2 Respiratory: Yes: Rales (bibasialr rales) Gastrointestinal: Yes: Normal Bowel Sounds, Soft Extremities: Yes: WNL Edema: No Labs: CBC, BMP 12/22/17 07:30 12/22/17 07:30 INR, PTT INR 1.19 (0.82-1.09) H 12/12/17 10:40 Problem List - Problems (1) Neutropenia Code(s): D70.9 - NEUTROPENIA, UNSPECIFIED (2) Fever Code(s): R50.9 - FEVER, UNSPECIFIED Qualifiers: Fever type: due to other condition Qualified Code(s): R50.81 - Fever presenting with conditions classified elsewhere (3) Sepsis Code(s): A41.9 - SEPSIS, UNSPECIFIED ORGANISM (4) AML (acute myeloblastic leukemia) Code(s): C92.00 - ACUTE MYELOBLASTIC LEUKEMIA, NOT HAVING ACHIEVED REMISSION Qualifiers: Leukemia Active/Remission status: without remission Qualified Code(s): C92.00 - Acute myeloblastic leukemia, not having achieved remission (5) Anemia Code(s): D64.9 - ANEMIA, UNSPECIFIED Qualifiers: Anemia type: unspecified type Qualified Code(s): D64.9 - Anemia, unspecified (6) Chronic diastolic (congestive) heart failure Code(s): I50.32 - CHRONIC DIASTOLIC (CONGESTIVE) HEART FAILURE (7) HLD (hyperlipidemia) Code(s): E78.5 - HYPERLIPIDEMIA, UNSPECIFIED (8) HTN (hypertension) Code(s): I10 - ESSENTIAL (PRIMARY) HYPERTENSION Qualifiers: Hypertension type: essential hypertension Qualified Code(s): I10 - Essential (primary) hypertension (9) Lung cancer Code(s): C34.90 - MALIGNANT NEOPLASM OF UNSP PART OF UNSP BRONCHUS OR LUNG Qualifiers: Laterality: unspecified laterality (10) Melanoma Code(s): C43.9 - MALIGNANT MELANOMA OF SKIN, UNSPECIFIED Qualifiers: Melanoma location: unspecified site Qualified Code(s): C43.9 - Malignant melanoma of skin, unspecified (11) Shortness of breath Code(s): R06.02 - SHORTNESS OF BREATH (12) Syncope Code(s): R55 - SYNCOPE AND COLLAPSE Qualifiers: Syncope type: unspecified Qualified Code(s): R55 - Syncope and collapse Assessment/Plan IMP NEUTROPENIC FEVER AML ANEMIA SYNCOPE H/O MELANOMA H/O LUNG CA S/P RESECTION PULMONARY NODULE ?MALIGNANT ASHD S/P CABG ACUTE KIDNEY INJURY HTN DIASTOLIC HF PLAN ABX PER ID INHALED BRONCHODILATORS NORMAL TRANSFUSION THRESHOLD IVF MONITOR LYTES,RENAL FUNCTION,H+H,CBC SUPPLEMENTAL O2 OUTPATIENT F/U PULMONARY NODULE [facility]ODAKPO[facility] DR HANSEN Problem List - Problems (1) Neutropenia Code(s): D70.9 - NEUTROPENIA, UNSPECIFIED (2) Fever Code(s): R50.9 - FEVER, UNSPECIFIED Qualifiers: Fever type: due to other condition Qualified Code(s): R50.81 - Fever presenting with conditions classified elsewhere (3) Sepsis Code(s): A41.9 - SEPSIS, UNSPECIFIED ORGANISM (4) AML (acute myeloblastic leukemia) Code(s): C92.00 - ACUTE MYELOBLASTIC LEUKEMIA, NOT HAVING ACHIEVED REMISSION Qualifiers: Leukemia Active/Remission status: without remission Qualified Code(s): C92.00 - Acute myeloblastic leukemia, not having achieved remission (5) Anemia Code(s): D64.9 - ANEMIA, UNSPECIFIED Qualifiers: Anemia type: unspecified type Qualified Code(s): D64.9 - Anemia, unspecified (6) Chronic diastolic (congestive) heart failure Code(s): I50.32 - CHRONIC DIASTOLIC (CONGESTIVE) HEART FAILURE (7) HLD (hyperlipidemia) Code(s): E78.5 - HYPERLIPIDEMIA, UNSPECIFIED (8) HTN (hypertension) Code(s): I10 - ESSENTIAL (PRIMARY) HYPERTENSION Qualifiers: Hypertension type: essential hypertension Qualified Code(s): I10 - Essential (primary) hypertension (9) Lung cancer Code(s): C34.90 - MALIGNANT NEOPLASM OF UNSP PART OF UNSP BRONCHUS OR LUNG Qualifiers: Laterality: unspecified laterality (10) Melanoma Code(s): C43.9 - MALIGNANT MELANOMA OF SKIN, UNSPECIFIED Qualifiers: Melanoma location: unspecified site Qualified Code(s): C43.9 - Malignant melanoma of skin, unspecified (11) Shortness of breath Code(s): R06.02 - SHORTNESS OF BREATH (12) Syncope Code(s): R55 - SYNCOPE AND COLLAPSE Qualifiers: Syncope type: unspecified Qualified Code(s): R55 - Syncope and collapse
[2017-12-22] MEDS: ASPIRIN COATED 81 MG TABLET.EC PO SCH (09:58)
[2017-12-22] MEDS ORDERED: CEFEPIME 2 GM in DEXTROSE 5%-WATER 100 ML IVPB SCH (10:00)
--- NOTE | 2017-12-22 10:04 | PN ---
Progress Note (short form) - Note Progress Note: RENAL Pt is sleepy. He can be examined without awakening appears comfortable Last Vital Signs Temp Pulse Resp BP Pulse Ox 99.0 F 94 H 20 144/60 98 12/22/17 07:03 12/22/17 07:03 12/22/17 07:03 12/22/17 07:03 12/21/17 21:00 lungs decreased breath sounds cvs s1s2 rr skipped beats abd soft ext +edema skin has a diffuse maculopapular rash CBC, BMP 12/22/17 07:30 12/22/17 07:30 Current Medications Generic Name Dose Route Start Last Admin Trade Name Freq PRN Reason Stop Dose Admin Acetaminophen 650 mg 12/22/17 07:57 Tylenol - PO Q4H PRN FEVER Albuterol/Ipratropium 1 amp 12/21/17 21:12 Duoneb - NEB Q4H PRN SHORTNESS OF BREATH Allopurinol 200 mg 12/22/17 10:00 12/22/17 09:54 Zyloprim - PO 200 mg DAILY [facility] Administration Alprazolam 1 mg 12/18/17 15:17 12/21/17 22:28 Xanax - PO 1 mg Q8H PRN Administration ANXIETY Amino Acids 30 ml 12/17/17 17:30 12/22/17 08:19 Prosource No Carb Liquid Pkt PO 30 ml BID@0800,1730 [facility] Administration Aspirin 81 mg 12/22/17 10:00 12/22/17 09:58 Ecotrin - PO 81 mg DAILY [facility] Administration Atorvastatin Calcium 40 mg 12/22/17 22:00 Lipitor - PO HS [facility] Ferrous Sulfate 325 mg 12/22/17 10:00 12/22/17 09:52 Feosol - PO 325 mg BID [facility] Administration Metronidazole 500 mg in 100 mls @ 100 mls/hr 12/17/17 10:00 12/22/17 09:28 Flagyl 500mg Premixed Ivpb - IVPB 100 mls/hr Q8H-IV [facility] Administration Cefepime HCl 2 gm/ Dextrose 100 mls @ 200 mls/hr 12/22/17 10:00 IVPB BID [facility] Protocol Multivitamins/Minerals/Vitamin C 1 tab 12/17/17 10:00 12/22/17 09:28 Tab-A-Vit - PO 1 tab DAILY [facility] Administration Ranitidine HCl 150 mg 12/22/17 10:00 12/22/17 09:51 Zantac - PO 150 mg BID [facility] Administration Tbo-Filgrastim 480 mcg 12/15/17 20:00 12/21/17 17:31 Granix - SQ 480 mcg DAILY [facility] Administration Tramadol HCl 50 mg 12/19/17 17:45 12/20/17 22:07 Ultram - PO 50 mg Q6H PRN Administration PAIN LEVEL 6-10 Valacyclovir HCl 1,000 mg 12/22/17 10:00 Valtrex - PO BID [facility] Voriconazole 200 mg 12/22/17 08:00 Vfend (Restricted To Id) PO BIDWM [facility] Impression 1. history of hyponatremia 2. anemia 3. Grade 4 neutropenia 4. hx lung cancer 5. hx melanoma 6. CAD 7. gout 8. fever 9. NUBIA 10. neutropenic fever 11. rash likely due to antibiotics Plan -antibiotics to be adjusted per ID who is aware of rash -would dc allopurinol if possible. -hydrate, will likely need steroids MV
[2017-12-22] MEDS: TBO-FILGRASTIM 480 MCG/0.8 ML DISP.SYRIN SQ SCH (10:45)
[2017-12-22] MEDS: valACYclovir HCL 500 MG TABLET (FP) PO SCH ×2 (10:45→22:27)
[2017-12-22] MEDS: VORICONAZOLE 200 MG TABLET (RESTRICTED TO ID) PO SCH ×2 (10:57→19:35)
--- NOTE | 2017-12-22 11:47 | PN ---
Progress Note, Physician History of Present Illness: Worsening rash on back, flanks , ext Denies pruritis Offer no complaints Intermittantly febrile No c/o chills - Current Medication List Current Medications: Active Medications Acetaminophen (Tylenol -) 650 mg PO Q4H PRN PRN Reason: FEVER Albuterol/Ipratropium (Duoneb -) 1 amp NEB Q4H PRN PRN Reason: SHORTNESS OF BREATH Allopurinol (Zyloprim -) 200 mg PO DAILY [facility] Last Admin: 12/22/17 09:54 Dose: 200 mg Alprazolam (Xanax -) 1 mg PO Q8H PRN PRN Reason: ANXIETY Last Admin: 12/21/17 22:28 Dose: 1 mg Amino Acids (Prosource No Carb Liquid Pkt) 30 ml PO BID@0800,1730 [facility] Last Admin: 12/22/17 08:19 Dose: 30 ml Aspirin (Ecotrin -) 81 mg PO DAILY [facility] Last Admin: 12/22/17 09:58 Dose: 81 mg Atorvastatin Calcium (Lipitor -) 40 mg PO [facility] Ferrous Sulfate (Feosol -) 325 mg PO BID [facility] Last Admin: 12/22/17 09:52 Dose: 325 mg Metronidazole (Flagyl 500mg Premixed Ivpb -) 500 mg in 100 mls @ 100 mls/hr IVPB Q8H-IV [facility] Last Admin: 12/22/17 09:28 Dose: 100 mls/hr Cefepime HCl 2 gm/ Dextrose 100 mls @ 200 mls/hr IVPB BID [facility]; Protocol Last Admin: 12/22/17 10:56 Dose: 200 mls/hr Multivitamins/Minerals/Vitamin C (Tab-A-Vit -) 1 tab PO DAILY [facility] Last Admin: 12/22/17 09:28 Dose: 1 tab Ranitidine HCl (Zantac -) 150 mg PO BID [facility] Last Admin: 12/22/17 09:51 Dose: 150 mg Tbo-Filgrastim (Granix -) 480 mcg SQ DAILY [facility] Last Admin: 12/22/17 10:45 Dose: 480 mcg Tramadol HCl (Ultram -) 50 mg PO Q6H PRN PRN Reason: PAIN LEVEL 6-10 Last Admin: 12/20/17 22:07 Dose: 50 mg Valacyclovir HCl (Valtrex -) 1,000 mg PO BID [facility] Last Admin: 12/22/17 10:45 Dose: 1,000 mg Voriconazole (Vfend (Restricted To Id)) 200 mg PO BIDWM [facility] Last Admin: 12/22/17 10:57 Dose: 200 mg - Objective Vital Signs: Vital Signs Temperature 98.3 F 12/22/17 10:00 Pulse Rate 102 H 12/22/17 10:00 Respiratory Rate 20 12/22/17 10:00 Blood Pressure 139/61 12/22/17 10:00 O2 Sat by Pulse Oximetry (%) 98 12/21/17 21:00 Constitutional: Yes: No Distress Cardiovascular: Yes: Regular Rate and Rhythm, S1, S2 Respiratory: Yes: CTA Bilaterally Gastrointestinal: Yes: Normal Bowel Sounds, Soft Integumentary: Yes: Other (+ generalized rash) Labs: CBC, BMP 12/22/17 07:30 12/22/17 07:30 INR, PTT INR 1.19 (0.82-1.09) H 12/12/17 10:40 Assessment/Plan Drug rash Febrile neutropenia AML Azotemia D/C antibiotics Neutropenic precautions Prognosis poor
[2017-12-22] MEDS: ACETAMINOPHEN 325 MG TABLET (FP) PO PRN (20:25)
[2017-12-22] MEDS: ALBUTEROL SO4 2.5/IPRATROPIUM 0.5 INH SOL 3 ML VIAL.NEB. NEB PRN (21:45)
[2017-12-22] MEDS: ATORVASTATIN CA 40 MG TABLET (FP) PO SCH (22:20)
[2017-12-23] MEDS: ALBUTEROL SO4 2.5/IPRATROPIUM 0.5 INH SOL 3 ML VIAL.NEB. NEB PRN ×2 (06:19→14:48)
--- NOTE | 2017-12-23 08:36 | PN ---
Progress Note, Physician - Current Medication List Current Medications: Active Medications Acetaminophen (Tylenol -) 650 mg PO Q4H PRN PRN Reason: FEVER Last Admin: 12/22/17 20:25 Dose: 650 mg Albuterol/Ipratropium (Duoneb -) 1 amp NEB Q4H PRN PRN Reason: SHORTNESS OF BREATH Last Admin: 12/23/17 06:19 Dose: 1 amp Allopurinol (Zyloprim -) 200 mg PO DAILY [facility] Last Admin: 12/22/17 09:54 Dose: 200 mg Amino Acids (Prosource No Carb Liquid Pkt) 30 ml PO BID@0800,1730 [facility] Last Admin: 12/22/17 18:13 Dose: 30 ml Aspirin (Ecotrin -) 81 mg PO DAILY [facility] Last Admin: 12/22/17 09:58 Dose: 81 mg Atorvastatin Calcium (Lipitor -) 40 mg PO HS [facility] Last Admin: 12/22/17 22:20 Dose: 40 mg Ferrous Sulfate (Feosol -) 325 mg PO BID [facility] Last Admin: 12/22/17 22:19 Dose: 325 mg Multivitamins/Minerals/Vitamin C (Tab-A-Vit -) 1 tab PO DAILY [facility] Last Admin: 12/22/17 09:28 Dose: 1 tab Ranitidine HCl (Zantac -) 150 mg PO BID [facility] Last Admin: 12/22/17 22:20 Dose: 150 mg Tbo-Filgrastim (Granix -) 480 mcg SQ DAILY [facility] Last Admin: 12/22/17 10:45 Dose: 480 mcg Valacyclovir HCl (Valtrex -) 1,000 mg PO BID [facility] Last Admin: 12/22/17 22:27 Dose: 1,000 mg Voriconazole (Vfend (Restricted To Id)) 200 mg PO BIDWM [facility] Last Admin: 12/22/17 19:35 Dose: 200 mg - Objective Vital Signs: Vital Signs Temperature 99.4 F 12/23/17 06:00 Pulse Rate 110 H 12/23/17 06:00 Respiratory Rate 24 12/23/17 06:00 Blood Pressure 95/54 12/23/17 06:00 O2 Sat by Pulse Oximetry (%) 100 12/22/17 21:00 Cardiovascular: Yes: S1, S2 Respiratory: Yes: Regular, CTA Bilaterally Gastrointestinal: Yes: Normal Bowel Sounds, Soft Labs: CBC, BMP 12/22/17 07:30 12/22/17 07:30 INR, PTT INR 1.19 (0.82-1.09) H 12/12/17 10:40 Problem List - Problems (1) Sepsis Assessment/Plan: --Cultures done --IV Abx --Id consult Code(s): A41.9 - SEPSIS, UNSPECIFIED ORGANISM (2) Acute kidney injury Assessment/Plan: -IVF -Follow Labs -Renal consult Code(s): N17.9 - ACUTE KIDNEY FAILURE, UNSPECIFIED (3) AML (acute myeloblastic leukemia) Assessment/Plan: -oncology consult Code(s): C92.00 - ACUTE MYELOBLASTIC LEUKEMIA, NOT HAVING ACHIEVED REMISSION Qualifiers: Leukemia Active/Remission status: without remission Qualified Code(s): C92.00 - Acute myeloblastic leukemia, not having achieved remission (4) Anemia Assessment/Plan: -GI consult noted -hem on board _Follow Labs Code(s): D64.9 - ANEMIA, UNSPECIFIED Qualifiers: Anemia type: unspecified type Qualified Code(s): D64.9 - Anemia, unspecified (5) Hx of CABG Code(s): Z95.1 - PRESENCE OF AORTOCORONARY BYPASS GRAFT (6) Syncope Assessment/Plan: -W/U in progress -cardio consult -transfuse -Follow Labs Code(s): R55 - SYNCOPE AND COLLAPSE Qualifiers: Syncope type: unspecified Qualified Code(s): R55 - Syncope and collapse
[2017-12-23] MEDS ORDERED: PT OWN MED DRAWER 7, Y5N ONE ×2 (09:33→16:39)
[2017-12-23] MEDS: AMINO ACIDS/PROTEIN HYDROLYS 30 ML LIQUID.PKT PO SCH ×2 (10:51→17:47)
[2017-12-23] MEDS: ALLOPURINOL 100 MG TABLET (FP) PO SCH (10:51)
[2017-12-23] MEDS: RANITIDINE HCL 150 MG TABLET (FP) PO SCH ×2 (10:51→21:57)
[2017-12-23] MEDS: MULTIVITAMINS (DAILY MVI) TABLET (FP) PO SCH (10:52)
[2017-12-23] MEDS: ASPIRIN COATED 81 MG TABLET.EC PO SCH (10:52)
[2017-12-23] MEDS: valACYclovir HCL 500 MG TABLET (FP) PO SCH ×2 (10:52→21:58)
[2017-12-23] MEDS: VORICONAZOLE 200 MG TABLET (RESTRICTED TO ID) PO SCH ×2 (10:53→17:48)
[2017-12-23] MEDS: FERROUS SO4 325 MG TABLET (FP) PO SCH ×2 (10:53→21:58)
--- NOTE | 2017-12-23 11:13 | PN ---
Progress Note (short form) - Note Progress Note: RENAL Pt is awake today. responds to some questions but seems hearing impaired appears comfortable Last Vital Signs Temp Pulse Resp BP Pulse Ox 99.4 F 110 H 24 95/54 100 12/23/17 06:00 12/23/17 06:00 12/23/17 06:00 12/23/17 06:00 12/22/17 21:00 lungs decreased breath sounds cvs s1s2 rr skipped beats abd soft ext +edema skin has a diffuse maculopapular rash CBC, BMP 12/22/17 07:30 12/22/17 07:30 Current Medications Generic Name Dose Route Start Last Admin Trade Name Freq PRN Reason Stop Dose Admin Acetaminophen 650 mg 12/22/17 07:57 12/22/17 20:25 Tylenol - PO 650 mg Q4H PRN Administration FEVER Albuterol/Ipratropium 1 amp 12/21/17 21:12 12/23/17 06:19 Duoneb - NEB 1 amp Q4H PRN Administration SHORTNESS OF BREATH Allopurinol 200 mg 12/22/17 10:00 12/23/17 10:51 Zyloprim - PO 200 mg DAILY [facility] Administration Amino Acids 30 ml 12/17/17 17:30 12/23/17 10:51 Prosource No Carb Liquid Pkt PO 30 ml BID@0800,1730 [facility] Administration Aspirin 81 mg 12/22/17 10:00 12/23/17 10:52 Ecotrin - PO 81 mg DAILY [facility] Administration Atorvastatin Calcium 40 mg 12/22/17 22:00 12/22/17 22:20 Lipitor - PO 40 mg HS [facility] Administration Ferrous Sulfate 325 mg 12/22/17 10:00 12/23/17 10:53 Feosol - PO 325 mg BID [facility] Administration Multivitamins/Minerals/Vitamin C 1 tab 12/17/17 10:00 12/23/17 10:52 Tab-A-Vit - PO 1 tab DAILY [facility] Administration Ranitidine HCl 150 mg 12/22/17 10:00 12/23/17 10:51 Zantac - PO 150 mg BID [facility] Administration Tbo-Filgrastim 480 mcg 12/15/17 20:00 12/22/17 10:45 Granix - SQ 480 mcg DAILY [facility] Administration Valacyclovir HCl 1,000 mg 12/22/17 10:00 12/23/17 10:52 Valtrex - PO 1,000 mg BID [facility] Administration Voriconazole 200 mg 12/22/17 08:00 12/23/17 10:53 Vfend (Restricted To Id) PO 200 mg BIDWM [facility] Administration Impression 1. history of hyponatremia 2. anemia 3. Grade 4 neutropenia 4. hx lung cancer 5. hx melanoma 6. CAD 7. gout 8. fever 9. NUBIA 10. neutropenic fever 11. rash likely due to antibiotics Plan -antibiotics to be adjusted per ID who is aware of rash -would dc allopurinol if possible. -hydrate, will likely need steroids -repeat labs today MV MV
--- NOTE | 2017-12-23 11:41 | PN ---
Progress Note, Physician History of Present Illness: pulmonary no distress,-sob, tmax 102.4 - Current Medication List Current Medications: Active Medications Acetaminophen (Tylenol -) 650 mg PO Q4H PRN PRN Reason: FEVER Last Admin: 12/22/17 20:25 Dose: 650 mg Albuterol/Ipratropium (Duoneb -) 1 amp NEB Q4H PRN PRN Reason: SHORTNESS OF BREATH Last Admin: 12/23/17 06:19 Dose: 1 amp Allopurinol (Zyloprim -) 200 mg PO DAILY [facility] Last Admin: 12/23/17 10:51 Dose: 200 mg Amino Acids (Prosource No Carb Liquid Pkt) 30 ml PO BID@0800,1730 [facility] Last Admin: 12/23/17 10:51 Dose: 30 ml Aspirin (Ecotrin -) 81 mg PO DAILY [facility] Last Admin: 12/23/17 10:52 Dose: 81 mg Atorvastatin Calcium (Lipitor -) 40 mg PO HS [facility] Last Admin: 12/22/17 22:20 Dose: 40 mg Ferrous Sulfate (Feosol -) 325 mg PO BID [facility] Last Admin: 12/23/17 10:53 Dose: 325 mg Multivitamins/Minerals/Vitamin C (Tab-A-Vit -) 1 tab PO DAILY [facility] Last Admin: 12/23/17 10:52 Dose: 1 tab Ranitidine HCl (Zantac -) 150 mg PO BID [facility] Last Admin: 12/23/17 10:51 Dose: 150 mg Tbo-Filgrastim (Granix -) 480 mcg SQ DAILY [facility] Last Admin: 12/22/17 10:45 Dose: 480 mcg Valacyclovir HCl (Valtrex -) 1,000 mg PO BID [facility] Last Admin: 12/23/17 10:52 Dose: 1,000 mg Voriconazole (Vfend (Restricted To Id)) 200 mg PO BIDWM [facility] Last Admin: 12/23/17 10:53 Dose: 200 mg - Objective Vital Signs: Vital Signs Temperature 99.4 F 12/23/17 06:00 Pulse Rate 110 H 12/23/17 06:00 Respiratory Rate 24 12/23/17 06:00 Blood Pressure 95/54 12/23/17 06:00 O2 Sat by Pulse Oximetry (%) 100 12/22/17 21:00 Constitutional: Yes: Well Nourished, Calm Eyes: Yes: WNL HENT: Yes: WNL Neck: Yes: WNL Cardiovascular: Yes: Regular Rate and Rhythm, S1, S2 Respiratory: Yes: Diminished Gastrointestinal: Yes: Normal Bowel Sounds, Soft Extremities: Yes: WNL Edema: No Integumentary: Yes: Rash (generalized rash) Labs: CBC, BMP 12/22/17 07:30 12/22/17 07:30 INR, PTT INR 1.19 (0.82-1.09) H 12/12/17 10:40 Problem List - Problems (1) Neutropenia Code(s): D70.9 - NEUTROPENIA, UNSPECIFIED (2) Fever Code(s): R50.9 - FEVER, UNSPECIFIED Qualifiers: Fever type: due to other condition Qualified Code(s): R50.81 - Fever presenting with conditions classified elsewhere (3) Sepsis Code(s): A41.9 - SEPSIS, UNSPECIFIED ORGANISM (4) AML (acute myeloblastic leukemia) Code(s): C92.00 - ACUTE MYELOBLASTIC LEUKEMIA, NOT HAVING ACHIEVED REMISSION Qualifiers: Leukemia Active/Remission status: without remission Qualified Code(s): C92.00 - Acute myeloblastic leukemia, not having achieved remission (5) Anemia Code(s): D64.9 - ANEMIA, UNSPECIFIED Qualifiers: Anemia type: unspecified type Qualified Code(s): D64.9 - Anemia, unspecified (6) Chronic diastolic (congestive) heart failure Code(s): I50.32 - CHRONIC DIASTOLIC (CONGESTIVE) HEART FAILURE (7) HLD (hyperlipidemia) Code(s): E78.5 - HYPERLIPIDEMIA, UNSPECIFIED (8) HTN (hypertension) Code(s): I10 - ESSENTIAL (PRIMARY) HYPERTENSION Qualifiers: Hypertension type: essential hypertension Qualified Code(s): I10 - Essential (primary) hypertension (9) Lung cancer Code(s): C34.90 - MALIGNANT NEOPLASM OF UNSP PART OF UNSP BRONCHUS OR LUNG Qualifiers: Laterality: unspecified laterality (10) Melanoma Code(s): C43.9 - MALIGNANT MELANOMA OF SKIN, UNSPECIFIED Qualifiers: Melanoma location: unspecified site Qualified Code(s): C43.9 - Malignant melanoma of skin, unspecified (11) Shortness of breath Code(s): R06.02 - SHORTNESS OF BREATH (12) Syncope Code(s): R55 - SYNCOPE AND COLLAPSE Qualifiers: Syncope type: unspecified Qualified Code(s): R55 - Syncope and collapse Assessment/Plan IMP NEUTROPENIC FEVER AML ANEMIA SYNCOPE H/O MELANOMA H/O LUNG CA S/P RESECTION PULMONARY NODULE ?MALIGNANT ASHD S/P CABG ACUTE KIDNEY INJURY HTN DIASTOLIC HF PLAN ABX PER ID INHALED BRONCHODILATORS NORMAL TRANSFUSION THRESHOLD IVF MONITOR LYTES,RENAL FUNCTION,H+H,CBC SUPPLEMENTAL O2 OUTPATIENT F/U PULMONARY NODULE JACE HANSEN Problem List - Problems (1) Neutropenia Code(s): D70.9 - NEUTROPENIA, UNSPECIFIED (2) Fever Code(s): R50.9 - FEVER, UNSPECIFIED Qualifiers: Fever type: due to other condition Qualified Code(s): R50.81 - Fever presenting with conditions classified elsewhere (3) Sepsis Code(s): A41.9 - SEPSIS, UNSPECIFIED ORGANISM (4) AML (acute myeloblastic leukemia) Code(s): C92.00 - ACUTE MYELOBLASTIC LEUKEMIA, NOT HAVING ACHIEVED REMISSION Qualifiers: Leukemia Active/Remission status: without remission Qualified Code(s): C92.00 - Acute myeloblastic leukemia, not having achieved remission (5) Anemia Code(s): D64.9 - ANEMIA, UNSPECIFIED Qualifiers: Anemia type: unspecified type Qualified Code(s): D64.9 - Anemia, unspecified (6) Chronic diastolic (congestive) heart failure Code(s): I50.32 - CHRONIC DIASTOLIC (CONGESTIVE) HEART FAILURE (7) HLD (hyperlipidemia) Code(s): E78.5 - HYPERLIPIDEMIA, UNSPECIFIED (8) HTN (hypertension) Code(s): I10 - ESSENTIAL (PRIMARY) HYPERTENSION Qualifiers: Hypertension type: essential hypertension Qualified Code(s): I10 - Essential (primary) hypertension (9) Lung cancer Code(s): C34.90 - MALIGNANT NEOPLASM OF UNSP PART OF UNSP BRONCHUS OR LUNG Qualifiers: Laterality: unspecified laterality (10) Melanoma Code(s): C43.9 - MALIGNANT MELANOMA OF SKIN, UNSPECIFIED Qualifiers: Melanoma location: unspecified site Qualified Code(s): C43.9 - Malignant melanoma of skin, unspecified (11) Shortness of breath Code(s): R06.02 - SHORTNESS OF BREATH (12) Syncope Code(s): R55 - SYNCOPE AND COLLAPSE Qualifiers: Syncope type: unspecified Qualified Code(s): R55 - Syncope and collapse
[2017-12-23] MEDS: TBO-FILGRASTIM 480 MCG/0.8 ML DISP.SYRIN SQ SCH (12:59)
[2017-12-23] MEDS: ACETAMINOPHEN 325 MG TABLET (FP) PO PRN (13:56)
--- NOTE | 2017-12-23 14:52 | HOSP ---
Subjective - Review of Symptoms Events since last encounter: asked by RN to read an EKG on this patient per primary PMD request - patient seen and examined. complains of CP with cough only. he does not know when it started. Not sure if he has SOB. feels sick and tired. PE: NAD , dyspnic , awake , alert , cooperative BP: 113/53 , pulse 113 RR 23 No fever MMM. No JVD CV: RRR, no mRG , tachy Lungs: bibasialr crackles . Ext: no edema or erythema Abd: soft, NT, ND , NL BS Skin : generalizes maculopapular rash . A/P : Unfortunate 82 y/o gentleman with with h/o AML who is being admitted and treated for neutropenic fever. was on abx for possible PNA, stopped yesterday . has NUBIA. now with cough and cp - His CP is likely due to cough. EKG obtained and showed L Wesley deviation, J point elevation in all leads not changed frm before - cxray with no changes from before . - CT scan on admission reviewed. - give breathing treatment - check trop -rest per primary team. Physical Examination Vital Signs: Vital Signs Temperature 98.2 F 12/23/17 14:34 Pulse Rate 75 12/23/17 14:34 Respiratory Rate 18 12/23/17 14:34 Blood Pressure 125/65 12/23/17 14:34 O2 Sat by Pulse Oximetry (%) 100 12/22/17 21:00 Labs: CBC, BMP 12/22/17 07:30 12/22/17 07:30
[2017-12-23] MEDS: ATORVASTATIN CA 40 MG TABLET (FP) PO SCH (21:58)
--- NOTE | 2017-12-23 22:01 | EKG ---
Test Reason : Blood Pressure : / mmHG Vent. Rate : 114 BPM Atrial Rate : 114 BPM P-R Int : 182 ms QRS Dur : 132 ms QT Int : 342 ms P-R-T Axes : 000 -54 106 degrees QTc Int : 471 ms SINUS TACHYCARDIA WITH PREMATURE ATRIAL COMPLEXES LEFT AXIS DEVIATION LEFT BUNDLE BRANCH BLOCK ABNORMAL ECG WHEN COMPARED WITH ECG OF 17-MAY-2017 15:06, SINUS RHYTHM HAS REPLACED ATRIAL FIBRILLATION Confirmed by SARKIS DOWNEY MD ([id number]) on 12/23/2017 10:01:25 PM Referred By: Konrad LOZADA Confirmed By:SARKIS DOWNEY MD
[2017-12-24 08:27] LABS: BASO % 0.8 % (0-2.0); EOS % 0.7 % (0-4.5); HEMATOCRIT 24.1 % (35.4-49); HEMOGLOBIN 8.3 GM/dL (11.7-16.9); LYMPH % 82.7 % (8-40); MCH 32.8 pg (25.7-33.7); MCHC 34.5 g/dl (32.0-35.9); MEAN CELL VOLUME 95.1 fl (80-96); MEAN PLT VOLUME 7.4 fl (7.5-11.1); MONO % 6.3 % (3.8-10.2); NEUT % 9.5 % (42.8-82.8); PLATELET COUNT 231 K/MM3 (134-434); RBC 2.54 M/mm3 (4.00-5.60); RDW 19.5 % (11.9-15.9); WHITE BLOOD COUNT 2.7 K/mm3 (4.0-10.0)
[2017-12-24] MEDS ORDERED: PT OWN MED DRAWER 7, Y5N ONE ×5 (08:37→17:17)
[2017-12-24] MEDS: AMINO ACIDS/PROTEIN HYDROLYS 30 ML LIQUID.PKT PO SCH ×2 (08:40→17:05)
[2017-12-24] MEDS: VORICONAZOLE 200 MG TABLET (RESTRICTED TO ID) PO SCH ×2 (08:41→17:06)
[2017-12-24 09:05] LABS: CHLORIDE 105 mmol/L (98-107); POTASSIUM 5.6 mmol/L (3.5-5.1); SODIUM 134 mmol/L (136-145)
[2017-12-24 09:12] LABS: ANION GAP 12 (8-16); BLOOD UREA NITROGEN 77 mg/dL (7-18); CALCIUM 7.4 mg/dL (8.5-10.1); CO2 17 mmol/L (21-32); CREATININE 3.9 mg/dL (0.7-1.3); GLUCOSE,RANDOM 111 mg/dL (74-106)
[2017-12-24] MEDS: RANITIDINE HCL 150 MG TABLET (FP) PO SCH ×2 (11:01→22:37)
[2017-12-24] MEDS: ASPIRIN COATED 81 MG TABLET.EC PO SCH (11:01)
[2017-12-24] MEDS: valACYclovir HCL 500 MG TABLET (FP) PO SCH (11:01)
[2017-12-24] MEDS: MULTIVITAMINS (DAILY MVI) TABLET (FP) PO SCH (11:01)
[2017-12-24] MEDS: FERROUS SO4 325 MG TABLET (FP) PO SCH ×2 (11:01→22:37)
[2017-12-24] MEDS: ALLOPURINOL 100 MG TABLET (FP) PO SCH (11:02)
--- NOTE | 2017-12-24 12:58 | PN ---
Progress Note (short form) - Note Progress Note: no fevers antibiotics d/marcia due to rash /2 per nurse rash is improving Vital Signs Period Temp Pulse Resp BP Sys/Alvares Pulse Ox Last 24 Hr 97.9 F-99.2 F 75-121 18-20 117-126/46-65 100 cor-rrr lungs clear abd soft,nt ext no edema scattered rash arms, legs, chest, back CBC, BMP 12/24/17 07:42 12/24/17 07:42 Microbiology 12/20/17 16:40 Blood - Peripheral Venous Blood Culture - Preliminary NO GROWTH OBTAINED AFTER 72 HOURS, INCUBATION TO CONTINUE FOR 2 DAYS. 12/20/17 15:50 Blood - Peripheral Venous Blood Culture - Preliminary NO GROWTH OBTAINED AFTER 72 HOURS, INCUBATION TO CONTINUE FOR 2 DAYS. 12/16/17 17:10 Blood - Peripheral Venous Blood Culture - Final NO GROWTH AFTER 5 DAYS INCUBATION 12/16/17 17:10 Blood - Peripheral Venous Blood Culture - Final NO GROWTH AFTER 5 DAYS INCUBATION 12/12/17 12:01 Blood - Peripheral Venous Blood Culture - Final NO GROWTH AFTER 5 DAYS INCUBATION 12/12/17 10:40 Blood - Peripheral Venous Blood Culture - Final NO GROWTH AFTER 5 DAYS INCUBATION 12/12/17 13:40 Urine - Urine Clean Catch Urine Culture - Final NO GROWTH OBTAINED 12/12/17 16:40 Nasopharyngeal Swab Influenza Types A,B Antigen - Final 12/12/17 16:40 Nasopharyngeal Swab - Final a/p drug rash- improving febrile neutropenia- improved 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
--- NOTE | 2017-12-24 13:15 | PN ---
Progress Note, Physician History of Present Illness: pulmonary alert,nad,-sob - Current Medication List Current Medications: Active Medications Acetaminophen (Tylenol -) 650 mg PO Q4H PRN PRN Reason: FEVER Last Admin: 12/23/17 13:56 Dose: 650 mg Albuterol/Ipratropium (Duoneb -) 1 amp NEB Q4H PRN PRN Reason: SHORTNESS OF BREATH Last Admin: 12/23/17 14:48 Dose: 1 amp Allopurinol (Zyloprim -) 200 mg PO DAILY [facility] Last Admin: 12/24/17 11:02 Dose: 200 mg Amino Acids (Prosource No Carb Liquid Pkt) 30 ml PO BID@0800,1730 [facility] Last Admin: 12/24/17 08:40 Dose: 30 ml Aspirin (Ecotrin -) 81 mg PO DAILY [facility] Last Admin: 12/24/17 11:01 Dose: 81 mg Atorvastatin Calcium (Lipitor -) 40 mg PO HS [facility] Last Admin: 12/23/17 21:58 Dose: 40 mg Diphenhydramine HCl (Benadryl -) 50 mg PO ONCE ONE Stop: 12/24/17 13:31 Ferrous Sulfate (Feosol -) 325 mg PO BID [facility] Last Admin: 12/24/17 11:01 Dose: 325 mg Multivitamins/Minerals/Vitamin C (Tab-A-Vit -) 1 tab PO DAILY [facility] Last Admin: 12/24/17 11:01 Dose: 1 tab Ranitidine HCl (Zantac -) 150 mg PO BID [facility] Last Admin: 12/24/17 11:01 Dose: 150 mg Tbo-Filgrastim (Granix -) 480 mcg SQ DAILY [facility] Last Admin: 12/23/17 12:59 Dose: 480 mcg Valacyclovir HCl (Valtrex -) 500 mg PO BID [facility] Voriconazole (Vfend (Restricted To Id)) 200 mg PO BIDWM [facility] Last Admin: 12/24/17 08:41 Dose: 200 mg - Objective Vital Signs: Vital Signs Temperature 99.2 F 12/24/17 10:00 Pulse Rate 112 H 12/24/17 10:00 Respiratory Rate 20 12/24/17 10:00 Blood Pressure 126/50 12/24/17 10:00 O2 Sat by Pulse Oximetry (%) 100 12/24/17 12:53 Constitutional: Yes: Well Nourished, Calm Eyes: Yes: WNL HENT: Yes: WNL Neck: Yes: WNL Cardiovascular: Yes: Regular Rate and Rhythm, S1, S2 Respiratory: Yes: Rales (bibasilar crackles) Gastrointestinal: Yes: Normal Bowel Sounds, Soft Extremities: Yes: WNL Edema: No Labs: CBC, BMP 12/24/17 07:42 12/24/17 07:42 INR, PTT INR 1.19 (0.82-1.09) H 12/12/17 10:40 Problem List - Problems (1) Neutropenia Code(s): D70.9 - NEUTROPENIA, UNSPECIFIED (2) Fever Code(s): R50.9 - FEVER, UNSPECIFIED Qualifiers: Fever type: due to other condition Qualified Code(s): R50.81 - Fever presenting with conditions classified elsewhere (3) Sepsis Code(s): A41.9 - SEPSIS, UNSPECIFIED ORGANISM (4) AML (acute myeloblastic leukemia) Code(s): C92.00 - ACUTE MYELOBLASTIC LEUKEMIA, NOT HAVING ACHIEVED REMISSION Qualifiers: Leukemia Active/Remission status: without remission Qualified Code(s): C92.00 - Acute myeloblastic leukemia, not having achieved remission (5) Anemia Code(s): D64.9 - ANEMIA, UNSPECIFIED Qualifiers: Anemia type: unspecified type Qualified Code(s): D64.9 - Anemia, unspecified (6) Chronic diastolic (congestive) heart failure Code(s): I50.32 - CHRONIC DIASTOLIC (CONGESTIVE) HEART FAILURE (7) HLD (hyperlipidemia) Code(s): E78.5 - HYPERLIPIDEMIA, UNSPECIFIED (8) HTN (hypertension) Code(s): I10 - ESSENTIAL (PRIMARY) HYPERTENSION Qualifiers: Hypertension type: essential hypertension Qualified Code(s): I10 - Essential (primary) hypertension (9) Lung cancer Code(s): C34.90 - MALIGNANT NEOPLASM OF UNSP PART OF UNSP BRONCHUS OR LUNG Qualifiers: Laterality: unspecified laterality (10) Melanoma Code(s): C43.9 - MALIGNANT MELANOMA OF SKIN, UNSPECIFIED Qualifiers: Melanoma location: unspecified site Qualified Code(s): C43.9 - Malignant melanoma of skin, unspecified (11) Shortness of breath Code(s): R06.02 - SHORTNESS OF BREATH (12) Syncope Code(s): R55 - SYNCOPE AND COLLAPSE Qualifiers: Syncope type: unspecified Qualified Code(s): R55 - Syncope and collapse Assessment/Plan IMP NEUTROPENIC FEVER IMPROVING AML ANEMIA SYNCOPE H/O MELANOMA H/O LUNG CA S/P RESECTION PULMONARY NODULE ?MALIGNANT ASHD S/P CABG ACUTE KIDNEY INJURY WORSENING HTN DIASTOLIC HF PLAN ABX PER ID INHALED BRONCHODILATORS NORMAL TRANSFUSION THRESHOLD IVF MONITOR LYTES,RENAL FUNCTION,H+H,CBC SUPPLEMENTAL O2 OUTPATIENT F/U PULMONARY NODULE JACE HANSEN Problem List - Problems (1) Neutropenia Code(s): D70.9 - NEUTROPENIA, UNSPECIFIED (2) Fever Code(s): R50.9 - FEVER, UNSPECIFIED Qualifiers: Fever type: due to other condition Qualified Code(s): R50.81 - Fever presenting with conditions classified elsewhere (3) Sepsis Code(s): A41.9 - SEPSIS, UNSPECIFIED ORGANISM (4) AML (acute myeloblastic leukemia) Code(s): C92.00 - ACUTE MYELOBLASTIC LEUKEMIA, NOT HAVING ACHIEVED REMISSION Qualifiers: Leukemia Active/Remission status: without remission Qualified Code(s): C92.00 - Acute myeloblastic leukemia, not having achieved remission (5) Anemia Code(s): D64.9 - ANEMIA, UNSPECIFIED Qualifiers: Anemia type: unspecified type Qualified Code(s): D64.9 - Anemia, unspecified (6) Chronic diastolic (congestive) heart failure Code(s): I50.32 - CHRONIC DIASTOLIC (CONGESTIVE) HEART FAILURE (7) HLD (hyperlipidemia) Code(s): E78.5 - HYPERLIPIDEMIA, UNSPECIFIED (8) HTN (hypertension) Code(s): I10 - ESSENTIAL (PRIMARY) HYPERTENSION Qualifiers: Hypertension type: essential hypertension Qualified Code(s): I10 - Essential (primary) hypertension (9) Lung cancer Code(s): C34.90 - MALIGNANT NEOPLASM OF UNSP PART OF UNSP BRONCHUS OR LUNG Qualifiers: Laterality: unspecified laterality (10) Melanoma Code(s): C43.9 - MALIGNANT MELANOMA OF SKIN, UNSPECIFIED Qualifiers: Melanoma location: unspecified site Qualified Code(s): C43.9 - Malignant melanoma of skin, unspecified (11) Shortness of breath Code(s): R06.02 - SHORTNESS OF BREATH (12) Syncope Code(s): R55 - SYNCOPE AND COLLAPSE Qualifiers: Syncope type: unspecified Qualified Code(s): R55 - Syncope and collapse
[2017-12-24] MEDS ORDERED: diphenhydrAMINE HCL 25 MG CAPSULE (FP) PO ONE ×2 (13:30→14:45)
[2017-12-24] MEDS: TBO-FILGRASTIM 480 MCG/0.8 ML DISP.SYRIN SQ SCH (14:33)
[2017-12-24] MEDS ORDERED: ALBUTEROL SO4 0.083% IH SOL 2.5 MG/3 ML VIAL.NEB. NEB ONE (14:37)
[2017-12-24] MEDS ORDERED: SODIUM BICARBONATE 8.4% 50 MEQ/50 ML DISP.SYRIN IVPUSH ONE (14:37)
--- NOTE | 2017-12-24 14:37 | PN ---
Progress Note, Physician History of Present Illness: Pt seen and examined at bedside. Chart reviewed. He has had poor appetite. He complains of cough. He denies chest pain. He denies dysuria. - Current Medication List Current Medications: Active Medications Acetaminophen (Tylenol -) 650 mg PO Q4H PRN PRN Reason: FEVER Last Admin: 12/23/17 13:56 Dose: 650 mg Albuterol/Ipratropium (Duoneb -) 1 amp NEB Q4H PRN PRN Reason: SHORTNESS OF BREATH Last Admin: 12/23/17 14:48 Dose: 1 amp Allopurinol (Zyloprim -) 200 mg PO DAILY [facility] Last Admin: 12/24/17 11:02 Dose: 200 mg Amino Acids (Prosource No Carb Liquid Pkt) 30 ml PO BID@0800,1730 [facility] Last Admin: 12/24/17 08:40 Dose: 30 ml Aspirin (Ecotrin -) 81 mg PO DAILY [facility] Last Admin: 12/24/17 11:01 Dose: 81 mg Atorvastatin Calcium (Lipitor -) 40 mg PO HS [facility] Last Admin: 12/23/17 21:58 Dose: 40 mg Ferrous Sulfate (Feosol -) 325 mg PO BID [facility] Last Admin: 12/24/17 11:01 Dose: 325 mg Multivitamins/Minerals/Vitamin C (Tab-A-Vit -) 1 tab PO DAILY [facility] Last Admin: 12/24/17 11:01 Dose: 1 tab Ranitidine HCl (Zantac -) 150 mg PO BID [facility] Last Admin: 12/24/17 11:01 Dose: 150 mg Tbo-Filgrastim (Granix -) 480 mcg SQ DAILY [facility] Last Admin: 12/23/17 12:59 Dose: 480 mcg Valacyclovir HCl (Valtrex -) 500 mg PO BID [facility] Voriconazole (Vfend (Restricted To Id)) 200 mg PO BIDWM [facility] Last Admin: 12/24/17 08:41 Dose: 200 mg - Objective Vital Signs: Vital Signs Temperature 99.2 F 12/24/17 10:00 Pulse Rate 112 H 12/24/17 10:00 Respiratory Rate 20 12/24/17 10:00 Blood Pressure 126/50 12/24/17 10:00 O2 Sat by Pulse Oximetry (%) 100 12/24/17 12:53 Constitutional: Yes: Anxious Eyes: Yes: WNL Neck: Yes: Supple Cardiovascular: Yes: S1, S2 Respiratory: Yes: On Nasal O2, Rhonchi Gastrointestinal: Yes: Soft Genitourinary: Yes: Incontinence Musculoskeletal: Yes: Muscle Weakness Edema: No Integumentary: Yes: Rash Neurological: Yes: Confusion Labs: CBC, BMP 12/24/17 07:42 12/24/17 07:42 INR, PTT INR 1.19 (0.82-1.09) H 12/12/17 10:40 - ....Imaging Chest X-ray: Report Reviewed Problem List - Problems (1) Acute kidney injury Code(s): N17.9 - ACUTE KIDNEY FAILURE, UNSPECIFIED (2) Anemia Code(s): D64.9 - ANEMIA, UNSPECIFIED Qualifiers: Anemia type: unspecified type Qualified Code(s): D64.9 - Anemia, unspecified Assessment/Plan Current Medications Generic Name Dose Route Start Last Admin Trade Name Freq PRN Reason Stop Dose Admin Acetaminophen 650 mg 12/22/17 07:57 12/23/17 13:56 Tylenol - PO 650 mg Q4H PRN Administration FEVER Albuterol/Ipratropium 1 amp 12/21/17 21:12 12/23/17 14:48 Duoneb - NEB 1 amp Q4H PRN Administration SHORTNESS OF BREATH Allopurinol 200 mg 12/22/17 10:00 12/24/17 11:02 Zyloprim - PO 200 mg DAILY [facility] Administration Amino Acids 30 ml 12/17/17 17:30 12/24/17 08:40 Prosource No Carb Liquid Pkt PO 30 ml BID@0800,1730 [facility] Administration Aspirin 81 mg 12/22/17 10:00 12/24/17 11:01 Ecotrin - PO 81 mg DAILY [facility] Administration Atorvastatin Calcium 40 mg 12/22/17 22:00 12/23/17 21:58 Lipitor - PO 40 mg HS [facility]EL Administration Ferrous Sulfate 325 mg 12/22/17 10:00 12/24/17 11:01 Feosol - PO 325 mg BID [facility] Administration Multivitamins/Minerals/Vitamin C 1 tab 12/17/17 10:00 12/24/17 11:01 Tab-A-Vit - PO 1 tab DAILY [facility] Administration Ranitidine HCl 150 mg 12/22/17 10:00 12/24/17 11:01 Zantac - PO 150 mg BID [facility] Administration Tbo-Filgrastim 480 mcg 12/15/17 20:00 12/24/17 14:33 Granix - SQ 480 mcg DAILY [facility] Administration Valacyclovir HCl 500 mg 12/25/17 10:00 Valtrex - PO BID [facility] Voriconazole 200 mg 12/22/17 08:00 12/24/17 08:41 Vfend (Restricted To Id) PO 200 mg BIDWM [facility] Administration Impression 1. history of hyponatremia 2. anemia 3. leukopenia 4. hx lung cancer 5. hx melanoma 6. CAD 7. gout 8. fever 9. NUBIA 10. neutropenic fever 11. 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
--- NOTE | 2017-12-24 14:44 | PN ---
Progress Note, Physician Chief Complaint: Sepsis Anemia NUBIA History of Present Illness: NAD Rash improving Palliative care Seen by ID and nephrology Renal function declining - Current Medication List Current Medications: Active Medications Acetaminophen (Tylenol -) 650 mg PO Q4H PRN PRN Reason: FEVER Last Admin: 12/23/17 13:56 Dose: 650 mg Albuterol/Ipratropium (Duoneb -) 1 amp NEB Q4H PRN PRN Reason: SHORTNESS OF BREATH Last Admin: 12/23/17 14:48 Dose: 1 amp Allopurinol (Zyloprim -) 200 mg PO DAILY [facility] Last Admin: 12/24/17 11:02 Dose: 200 mg Amino Acids (Prosource No Carb Liquid Pkt) 30 ml PO BID@0800,1730 [facility] Last Admin: 12/24/17 08:40 Dose: 30 ml Aspirin (Ecotrin -) 81 mg PO DAILY [facility] Last Admin: 12/24/17 11:01 Dose: 81 mg Atorvastatin Calcium (Lipitor -) 40 mg PO HS [facility] Last Admin: 12/23/17 21:58 Dose: 40 mg Diphenhydramine HCl (Benadryl -) 50 mg PO ONCE ONE Stop: 12/24/17 14:46 Ferrous Sulfate (Feosol -) 325 mg PO BID [facility] Last Admin: 12/24/17 11:01 Dose: 325 mg Multivitamins/Minerals/Vitamin C (Tab-A-Vit -) 1 tab PO DAILY [facility] Last Admin: 12/24/17 11:01 Dose: 1 tab Ranitidine HCl (Zantac -) 150 mg PO BID [facility] Last Admin: 12/24/17 11:01 Dose: 150 mg Sodium Bicarbonate (Sodium Bicarbonate 8.4% -) 50 meq IVPUSH ONCE ONE Stop: 12/24/17 14:38 Tbo-Filgrastim (Granix -) 480 mcg SQ DAILY [facility] Last Admin: 12/24/17 14:33 Dose: 480 mcg Valacyclovir HCl (Valtrex -) 500 mg PO BID [facility] Voriconazole (Vfend (Restricted To Id)) 200 mg PO BIDWM [facility] Last Admin: 12/24/17 08:41 Dose: 200 mg - Objective Vital Signs: Vital Signs Temperature 99.2 F 12/24/17 10:00 Pulse Rate 112 H 12/24/17 10:00 Respiratory Rate 20 12/24/17 10:00 Blood Pressure 126/50 12/24/17 10:00 O2 Sat by Pulse Oximetry (%) 100 12/24/17 12:53 Constitutional: Yes: Well Nourished, No Distress, Calm Cardiovascular: Yes: Regular Rate and Rhythm Respiratory: Yes: Regular Gastrointestinal: Yes: Normal Bowel Sounds, Soft, Abdomen, Obese Musculoskeletal: Yes: Muscle Weakness Integumentary: Yes: Rash (generalized, after Vancomycin?) Neurological: Yes: Alert, Oriented Psychiatric: Yes: Alert, Oriented Labs: CBC, BMP 12/24/17 07:42 12/24/17 07:42 INR, PTT INR 1.19 (0.82-1.09) H 12/12/17 10:40 Problem List - Problems (1) Acute kidney injury Assessment/Plan: -progressively worsening -seen by nephrology -U/S renal ordered, refused by sister, on hold for now until further decision is made -Babin inserted Code(s): N17.9 - ACUTE KIDNEY FAILURE, UNSPECIFIED (2) Neutropenia Assessment/Plan: -Oncology on board -on Granix Code(s): D70.9 - NEUTROPENIA, UNSPECIFIED (3) Sepsis Assessment/Plan: -afebrile this AM -ID on board Code(s): A41.9 - SEPSIS, UNSPECIFIED ORGANISM (4) AML (acute myeloblastic leukemia) Code(s): C92.00 - ACUTE MYELOBLASTIC LEUKEMIA, NOT HAVING ACHIEVED REMISSION Qualifiers: Leukemia Active/Remission status: without remission Qualified Code(s): C92.00 - Acute myeloblastic leukemia, not having achieved remission (5) Anemia Assessment/Plan: -chronic -stool ob, iron profile, b12, folate, thyroid profile -hemotology/oncology on board Code(s): D64.9 - ANEMIA, UNSPECIFIED Qualifiers: Anemia type: unspecified type Qualified Code(s): D64.9 - Anemia, unspecified (6) Chronic diastolic (congestive) heart failure Code(s): I50.32 - CHRONIC DIASTOLIC (CONGESTIVE) HEART FAILURE Assessment/Plan see problem list family decision pending, floor and office contact provided. Overall poor prognosis
[2017-12-24] MEDS ORDERED: SODIUM BICARBONATE 8.4% - 50 MEQ in DEXTROSE 5%-WATER - 100 ML IVPB ONE (15:30)
[2017-12-24 16:44] LABS: URINE APPEARANCE CLOUDY; URINE BILIRUBIN NEGATIVE (<2.0 mg/dL); URINE BLOOD 1+ (NEGATIVE); URINE COLOR AMBER; URINE GLUCOSE (UA) NEGATIVE (NEGATIVE); URINE KETONE NEGATIVE (NEGATIVE); URINE LEUK ESTERASE TRACE (NEGATIVE); URINE NITRITE NEGATIVE (NEGATIVE); URINE UROBILINOGEN NEGATIVE mg/dL (0.2-1.0)
[2017-12-24 17:02] LABS: URINE PROTEIN 1+ (NEGATIVE)
[2017-12-24] MEDS: ACETAMINOPHEN 325 MG TABLET (FP) PO PRN (17:06)
[2017-12-24 17:09] LABS: EPI CELLS RARE /HPF (FEW); URIC ACID CRYSTALS RARE /hpf (NONE SEEN); URINE BACTERIA RARE /hpf (NONE SEEN); YEAST FEW
[2017-12-24 18:24] LABS: ANION GAP 13 (8-16); BLOOD UREA NITROGEN 83 mg/dL (7-18); CALCIUM 7.2 mg/dL (8.5-10.1); CHLORIDE 101 mmol/L (98-107); CO2 20 mmol/L (21-32); GLUCOSE,RANDOM 168 mg/dL (74-106); POTASSIUM 5.5 mmol/L (3.5-5.1); SODIUM 134 mmol/L (136-145)
[2017-12-24] MEDS ORDERED: SODIUM POLYSTYRENE SULFONATE 15 GM/60 ML BOTTLE PO ONE (19:15)
[2017-12-24] MEDS: ALBUTEROL SO4 2.5/IPRATROPIUM 0.5 INH SOL 3 ML VIAL.NEB. NEB PRN (21:48)
[2017-12-24] MEDS: ATORVASTATIN CA 40 MG TABLET (FP) PO SCH (22:37)
[2017-12-25] MEDS: ACETAMINOPHEN 325 MG TABLET (FP) PO PRN ×3 (05:35→22:33)
[2017-12-25 07:40] LABS: BASO % 1.1 % (0-2.0); EOS % 0.8 % (0-4.5); HEMOGLOBIN 7.6 GM/dL (11.7-16.9); LYMPH % 87.7 % (8-40); MCH 32.6 pg (25.7-33.7); MCHC 34.7 g/dl (32.0-35.9); MEAN CELL VOLUME 94.1 fl (80-96); MEAN PLT VOLUME 7.3 fl (7.5-11.1); NEUT % 6.4 % (42.8-82.8); PLATELET COUNT 248 K/MM3 (134-434); RBC 2.34 M/mm3 (4.00-5.60); RDW 18.2 % (11.9-15.9); WHITE BLOOD COUNT 2.3 K/mm3 (4.0-10.0)
[2017-12-25] MEDS: VORICONAZOLE 200 MG TABLET (RESTRICTED TO ID) PO SCH ×2 (08:00→17:29)
[2017-12-25] MEDS: AMINO ACIDS/PROTEIN HYDROLYS 30 ML LIQUID.PKT PO SCH (08:58)
[2017-12-25 09:20] LABS: ALBUMIN 1.9 g/dl (3.4-5.0); ANION GAP 10 (8-16); BLOOD UREA NITROGEN 91 mg/dL (7-18); CALCIUM 7.2 mg/dL (8.5-10.1); CHLORIDE 103 mmol/L (98-107); CO2 21 mmol/L (21-32); GLUCOSE,RANDOM 106 mg/dL (74-106); POTASSIUM 5.5 mmol/L (3.5-5.1); SGOT/AST 24 U/L (15-37); SGPT/ALT 23 U/L (12-78); SODIUM 134 mmol/L (136-145)
[2017-12-25 09:23] LABS: ALK PHOS 66 U/L (45-117); BILIRUBIN,TOTAL 0.4 mg/dL (0.2-1.0); CREATININE 4.3 mg/dL (0.7-1.3)
--- NOTE | 2017-12-25 10:01 | PN ---
Progress Note (short form) - Note Progress Note: PULMONARY Lethargic but arousable. Febrile this AM. Last Vital Signs Temp Pulse Resp BP Pulse Ox 101.5 F H 124 H 24 142/59 95 12/25/17 06:56 12/25/17 06:56 12/25/17 06:56 12/25/17 06:56 12/24/17 22:00 Intake & Output 12/22/17 12/23/17 12/24/17 12/25/17 23:59 23:59 23:59 23:59 Intake Total 162 026 2406 50 Output Total 280 100 Balance 907 359 4800 -50 Gen: lethargic but arousable Heart: RRR Lung: bilateral rhonchi Abd: soft, nontender Ext: no edema Skin: diffuse rash CBC, BMP 12/25/17 06:30 12/25/17 06:20 Active Medications Acetaminophen (Tylenol -) 650 mg PO Q4H PRN PRN Reason: FEVER Last Admin: 12/25/17 05:35 Dose: 650 mg Albuterol/Ipratropium (Duoneb -) 1 amp NEB Q4H PRN PRN Reason: SHORTNESS OF BREATH Last Admin: 12/24/17 21:48 Dose: 1 amp Amino Acids (Prosource No Carb Liquid Pkt) 30 ml PO BID@0800,1730 [facility] Last Admin: 12/24/17 17:05 Dose: 30 ml Aspirin (Ecotrin -) 81 mg PO DAILY [facility] Last Admin: 12/24/17 11:01 Dose: 81 mg Atorvastatin Calcium (Lipitor -) 40 mg PO HS [facility] Last Admin: 12/24/17 22:37 Dose: 40 mg Ferrous Sulfate (Feosol -) 325 mg PO BID [facility] Last Admin: 12/24/17 22:37 Dose: 325 mg Multivitamins/Minerals/Vitamin C (Tab-A-Vit -) 1 tab PO DAILY [facility] Last Admin: 12/24/17 11:01 Dose: 1 tab Ranitidine HCl (Zantac -) 150 mg PO BID [facility] Last Admin: 12/24/17 22:37 Dose: 150 mg Tbo-Filgrastim (Granix -) 480 mcg SQ DAILY [facility] Last Admin: 12/24/17 14:33 Dose: 480 mcg Valacyclovir HCl (Valtrex -) 500 mg PO BID [facility] Voriconazole (Vfend (Restricted To Id)) 200 mg PO BIDWM [facility] Last Admin: 12/24/17 17:06 Dose: 200 mg A/P Neutropenic Sepsis Acute Kidney Injury AML h/o Lung Ca Lung Nodules CAD s/p CABG LV Diastolic Dysfunction HTN Drug Rash - antibiotics per ID - consider short course of steroids - O2 to keep SpO2 >90% - inhaled bronchodilators as needed - outpt f/u of lung nodules - DVT prophylaxis - poor prognosis
[2017-12-25] MEDS ORDERED: PT OWN MED DRAWER 7, Y5N ONE ×2 (10:34→17:01)
--- NOTE | 2017-12-25 10:43 | PN ---
Progress Note, Physician Chief Complaint: Sepsis Anemia NUBIA History of Present Illness: NAD Rash inmproving Palliative care spoke to pt's sister Sendy yesterday. I spoke to nephew who is the health care proxy today. He would like to discuss goals of care with Sendy and return back to me. Contact number provided. For now all interventions on hold. - Current Medication List Current Medications: Active Medications Acetaminophen (Tylenol -) 650 mg PO Q4H PRN PRN Reason: FEVER Last Admin: 12/25/17 05:35 Dose: 650 mg Albuterol/Ipratropium (Duoneb -) 1 amp NEB Q4H PRN PRN Reason: SHORTNESS OF BREATH Last Admin: 12/24/17 21:48 Dose: 1 amp Amino Acids (Prosource No Carb Liquid Pkt) 30 ml PO BID@0800,1730 [facility] Last Admin: 12/24/17 17:05 Dose: 30 ml Aspirin (Ecotrin -) 81 mg PO DAILY [facility] Last Admin: 12/24/17 11:01 Dose: 81 mg Atorvastatin Calcium (Lipitor -) 40 mg PO HS [facility] Last Admin: 12/24/17 22:37 Dose: 40 mg Ferrous Sulfate (Feosol -) 325 mg PO BID [facility] Last Admin: 12/24/17 22:37 Dose: 325 mg Multivitamins/Minerals/Vitamin C (Tab-A-Vit -) 1 tab PO DAILY [facility] Last Admin: 12/24/17 11:01 Dose: 1 tab Ranitidine HCl (Zantac -) 150 mg PO BID [facility] Last Admin: 12/24/17 22:37 Dose: 150 mg Tbo-Filgrastim (Granix -) 480 mcg SQ DAILY [facility] Last Admin: 12/24/17 14:33 Dose: 480 mcg Valacyclovir HCl (Valtrex -) 500 mg PO BID [facility] Voriconazole (Vfend (Restricted To Id)) 200 mg PO BIDWM [facility] Last Admin: 12/24/17 17:06 Dose: 200 mg - Objective Vital Signs: Vital Signs Temperature 101.5 F H 12/25/17 06:56 Pulse Rate 124 H 12/25/17 06:56 Respiratory Rate 24 12/25/17 06:56 Blood Pressure 142/59 12/25/17 06:56 O2 Sat by Pulse Oximetry (%) 95 06/04/18 22:00 Constitutional: Yes: Well Nourished, No Distress, Calm Cardiovascular: Yes: Regular Rate and Rhythm Respiratory: Yes: Regular Gastrointestinal: Yes: Normal Bowel Sounds, Soft, Abdomen, Obese Musculoskeletal: Yes: Muscle Weakness Integumentary: Yes: Rash (generalized) Neurological: Yes: Alert Psychiatric: Yes: Alert Labs: CBC, BMP 12/25/17 06:30 12/25/17 06:20 INR, PTT INR 1.19 (0.82-1.09) H 12/12/17 10:40 Problem List - Problems (1) Acute kidney injury Assessment/Plan: -progressively worsening -seen by nephrology -U/S renal ordered, refused by sister yesterday, on hold for now until further decision is made -Babin inserted yesterday Code(s): N17.9 - ACUTE KIDNEY FAILURE, UNSPECIFIED (2) Neutropenia Assessment/Plan: -Oncology on board -on Granix Code(s): D70.9 - NEUTROPENIA, UNSPECIFIED (3) Sepsis Assessment/Plan: -febrile this AM -Repeat blood cultures pending -would check UC and CXR Code(s): A41.9 - SEPSIS, UNSPECIFIED ORGANISM (4) AML (acute myeloblastic leukemia) Code(s): C92.00 - ACUTE MYELOBLASTIC LEUKEMIA, NOT HAVING ACHIEVED REMISSION Qualifiers: Leukemia Active/Remission status: without remission Qualified Code(s): C92.00 - Acute myeloblastic leukemia, not having achieved remission (5) Anemia Assessment/Plan: -chronic -stool ob, iron profile, b12, folate, thyroid profile -hemotology/oncology on board Code(s): D64.9 - ANEMIA, UNSPECIFIED Qualifiers: Anemia type: unspecified type Qualified Code(s): D64.9 - Anemia, unspecified (6) Chronic diastolic (congestive) heart failure Code(s): I50.32 - CHRONIC DIASTOLIC (CONGESTIVE) HEART FAILURE Assessment/Plan see problem list family decision pending, floor and office contact provided.
[2017-12-25] MEDS: FERROUS SO4 325 MG TABLET (FP) PO SCH (10:57)
[2017-12-25] MEDS: ASPIRIN COATED 81 MG TABLET.EC PO SCH (10:57)
[2017-12-25] MEDS: MULTIVITAMINS (DAILY MVI) TABLET (FP) PO SCH (10:57)
[2017-12-25] MEDS: RANITIDINE HCL 150 MG TABLET (FP) PO SCH (10:57)
[2017-12-25] MEDS: valACYclovir HCL 500 MG TABLET (FP) PO SCH ×2 (10:58→22:33)
[2017-12-25] MEDS: TBO-FILGRASTIM 480 MCG/0.8 ML DISP.SYRIN SQ SCH (11:01)
[2017-12-25 11:51] LABS: PLATELET ESTIMATE NORMAL
--- NOTE | 2017-12-25 13:03 | PN ---
Progress Note, Physician History of Present Illness: Remains febrile, neutropenic Slightly tachypneic on nasal cannula Repeat BC obtained Generalized rash improved Denies pruritis Offer no complaints No c/o chills - Current Medication List Current Medications: Active Medications Acetaminophen (Tylenol -) 650 mg PO Q4H PRN PRN Reason: FEVER Last Admin: 12/25/17 05:35 Dose: 650 mg Albuterol/Ipratropium (Duoneb -) 1 amp NEB Q4H PRN PRN Reason: SHORTNESS OF BREATH Last Admin: 12/24/17 21:48 Dose: 1 amp Amino Acids (Prosource No Carb Liquid Pkt) 30 ml PO BID@0800,1730 [facility] Last Admin: 12/25/17 08:58 Dose: 30 ml Aspirin (Ecotrin -) 81 mg PO DAILY [facility] Last Admin: 12/25/17 10:57 Dose: 81 mg Atorvastatin Calcium (Lipitor -) 40 mg PO HS [facility] Last Admin: 12/24/17 22:37 Dose: 40 mg Ferrous Sulfate (Feosol -) 325 mg PO BID [facility] Last Admin: 12/25/17 10:57 Dose: 325 mg Multivitamins/Minerals/Vitamin C (Tab-A-Vit -) 1 tab PO DAILY [facility] Last Admin: 12/25/17 10:57 Dose: 1 tab Ranitidine HCl (Zantac -) 150 mg PO BID [facility] Last Admin: 12/25/17 10:57 Dose: 150 mg Tbo-Filgrastim (Granix -) 480 mcg SQ DAILY [facility] Last Admin: 12/25/17 11:01 Dose: 480 mcg Valacyclovir HCl (Valtrex -) 500 mg PO BID [facility] Last Admin: 12/25/17 10:58 Dose: 500 mg Voriconazole (Vfend (Restricted To Id)) 200 mg PO BIDWM [facility] Last Admin: 12/25/17 08:00 Dose: 200 mg - Objective Vital Signs: Vital Signs Temperature 101.5 F H 12/25/17 06:56 Pulse Rate 124 H 12/25/17 06:56 Respiratory Rate 24 12/25/17 06:56 Blood Pressure 142/59 12/25/17 06:56 O2 Sat by Pulse Oximetry (%) 95 12/24/17 22:00 Constitutional: Yes: No Distress Eyes: Yes: Conjunctiva Clear Cardiovascular: Yes: Regular Rate and Rhythm, S1, S2 Respiratory: Yes: Diminished Gastrointestinal: Yes: Normal Bowel Sounds, Soft. No: Tenderness Labs: CBC, BMP 12/25/17 06:30 12/25/17 06:20 INR, PTT INR 1.19 (0.82-1.09) H 12/12/17 10:40 Assessment/Plan Drug rash- improving Febrile neutropenia ? "tumor fever" AML Azotemia Off antibiotics Check repeat c/s Neutropenic precautions Prognosis poor
[2017-12-25] MEDS ORDERED: morphine SULFATE 4 MG/ML VIAL IVPUSH PRN (13:33)
--- NOTE | 2017-12-25 15:50 | PN ---
Progress Note, Physician History of Present Illness: Pt seen and examined at bedside. He is lethargic today. - Current Medication List Current Medications: Active Medications Acetaminophen (Tylenol -) 650 mg PO Q4H PRN PRN Reason: FEVER Last Admin: 12/25/17 13:14 Dose: 650 mg Albuterol/Ipratropium (Duoneb -) 1 amp NEB Q4H PRN PRN Reason: SHORTNESS OF BREATH Last Admin: 12/24/17 21:48 Dose: 1 amp Morphine Sulfate (Morphine Sulfate) 2 mg IVPUSH Q2H PRN PRN Reason: PAIN LEVEL 6-10 Tbo-Filgrastim (Granix -) 480 mcg SQ DAILY [facility] Last Admin: 12/25/17 11:01 Dose: 480 mcg Valacyclovir HCl (Valtrex -) 500 mg PO BID [facility] Last Admin: 12/25/17 10:58 Dose: 500 mg Voriconazole (Vfend (Restricted To Id)) 200 mg PO BIDWM [facility] Last Admin: 12/25/17 08:00 Dose: 200 mg - Objective Vital Signs: Vital Signs Temperature 99.1 F 12/25/17 15:17 Pulse Rate 110 H 12/25/17 15:17 Respiratory Rate 22 12/25/17 15:17 Blood Pressure 114/48 12/25/17 15:17 O2 Sat by Pulse Oximetry (%) 95 12/24/17 22:00 Constitutional: Yes: Calm, Moderate Distress HENT: Yes: Atraumatic Cardiovascular: Yes: S1, S2 Respiratory: Yes: On Nasal O2, Rhonchi Gastrointestinal: Yes: Soft Genitourinary: Yes: Incontinence Musculoskeletal: Yes: Muscle Weakness Edema: No Neurological: Yes: Lethargy Labs: CBC, BMP 12/25/17 06:30 12/25/17 06:20 INR, PTT INR 1.19 (0.82-1.09) H 12/12/17 10:40 Problem List - Problems (1) Acute kidney injury Code(s): N17.9 - ACUTE KIDNEY FAILURE, UNSPECIFIED (2) Anemia Code(s): D64.9 - ANEMIA, UNSPECIFIED Qualifiers: Anemia type: unspecified type Qualified Code(s): D64.9 - Anemia, unspecified Assessment/Plan Current Medications Generic Name Dose Route Start Last Admin Trade Name Freq PRN Reason Stop Dose Admin Acetaminophen 650 mg 12/22/17 07:57 12/25/17 13:14 Tylenol - PO 650 mg Q4H PRN Administration FEVER Albuterol/Ipratropium 1 amp 12/21/17 21:12 12/24/17 21:48 Duoneb - NEB 1 amp Q4H PRN Administration SHORTNESS OF BREATH Morphine Sulfate 2 mg 12/25/17 14:09 Morphine Sulfate IVPUSH Q2H PRN PAIN LEVEL 6-10 Tbo-Filgrastim 480 mcg 12/15/17 20:00 12/25/17 11:01 Granix - SQ 480 mcg DAILY [facility] Administration Valacyclovir HCl 500 mg 12/25/17 10:00 12/25/17 10:58 Valtrex - PO 500 mg BID [facility] Administration Voriconazole 200 mg 12/22/17 08:00 12/25/17 08:00 Vfend (Restricted To Id) PO 200 mg BIDWM [facility] Administration Impression 1. history of hyponatremia 2. anemia 3. leukopenia 4. hx lung cancer 5. hx melanoma 6. CAD 7. gout 8. fever 9. NUBIA 10. neutropenic fever 11. hyperkalemia Plan - renal function is worsening - discussed with medical team, pt is now on hospice and in the process of being transferred to [place] - can consider fluids if family agree to further intervention - family refused renal ultrasound last night - will follow prn Dr Bray
[2017-12-25] MEDS: morphine SULFATE 4 MG/ML VIAL IVPUSH PRN (17:28)
[2017-12-26] MEDS: morphine SULFATE 4 MG/ML VIAL IVPUSH PRN ×3 (01:39→11:57)
--- NOTE | 2017-12-26 07:47 | PN ---
Progress Note, Physician - Current Medication List Current Medications: Active Medications Acetaminophen (Tylenol -) 650 mg PO Q4H PRN PRN Reason: FEVER Last Admin: 12/25/17 22:33 Dose: 650 mg Albuterol/Ipratropium (Duoneb -) 1 amp NEB Q4H PRN PRN Reason: SHORTNESS OF BREATH Last Admin: 12/24/17 21:48 Dose: 1 amp Morphine Sulfate (Morphine Sulfate) 2 mg IVPUSH Q2H PRN PRN Reason: PAIN LEVEL 6-10 Last Admin: 12/26/17 01:39 Dose: 2 mg Tbo-Filgrastim (Granix -) 480 mcg SQ DAILY [facility] Last Admin: 12/25/17 11:01 Dose: 480 mcg Valacyclovir HCl (Valtrex -) 500 mg PO BID [facility] Last Admin: 12/25/17 22:33 Dose: 500 mg Voriconazole (Vfend (Restricted To Id)) 200 mg PO BIDWM [facility] Last Admin: 12/25/17 17:29 Dose: 200 mg - Objective Vital Signs: Vital Signs Temperature 99.6 F 12/26/17 07:26 Pulse Rate 143 H 12/26/17 07:26 Respiratory Rate 24 12/26/17 07:26 Blood Pressure 147/73 12/26/17 07:26 O2 Sat by Pulse Oximetry (%) 95 12/25/17 21:00 Cardiovascular: Yes: S1, S2 Respiratory: Yes: On Nasal O2, Rhonchi Neurological: Yes: Confusion, Weakness Labs: CBC, BMP 12/25/17 06:30 12/25/17 06:20 INR, PTT INR 1.19 (0.82-1.09) H 12/12/17 10:40 Problem List - Problems (1) Sepsis Code(s): A41.9 - SEPSIS, UNSPECIFIED ORGANISM (2) Acute kidney injury Code(s): N17.9 - ACUTE KIDNEY FAILURE, UNSPECIFIED (3) AML (acute myeloblastic leukemia) Code(s): C92.00 - ACUTE MYELOBLASTIC LEUKEMIA, NOT HAVING ACHIEVED REMISSION Qualifiers: Leukemia Active/Remission status: without remission Qualified Code(s): C92.00 - Acute myeloblastic leukemia, not having achieved remission (4) Anemia Code(s): D64.9 - ANEMIA, UNSPECIFIED Qualifiers: Anemia type: unspecified type Qualified Code(s): D64.9 - Anemia, unspecified (5) Hx of CABG Code(s): Z95.1 - PRESENCE OF AORTOCORONARY BYPASS GRAFT (6) Syncope Code(s): R55 - SYNCOPE AND COLLAPSE Qualifiers: Syncope type: unspecified Qualified Code(s): R55 - Syncope and collapse Assessment/Plan - Problems (1) Acute kidney injury Assessment/Plan: -progressively worsening -seen by nephrology -Babin sukumar Code(s): N17.9 - ACUTE KIDNEY FAILURE, UNSPECIFIED (2) Neutropenia Assessment/Plan: -Oncology on board -on Granix Code(s): D70.9 - NEUTROPENIA, UNSPECIFIED (3) Sepsis Assessment/Plan: -comfort care Code(s): A41.9 - SEPSIS, UNSPECIFIED ORGANISM (4) AML (acute myeloblastic leukemia) Code(s): C92.00 - ACUTE MYELOBLASTIC LEUKEMIA, NOT HAVING ACHIEVED REMISSION Qualifiers: Leukemia Active/Remission status: without remission Qualified Code(s): C92.00 - Acute myeloblastic leukemia, not having achieved remission (5) Anemia Assessment/Plan: -chronic -hemotology/oncology on board Code(s): D64.9 - ANEMIA, UNSPECIFIED Qualifiers: Anemia type: unspecified type Qualified Code(s): D64.9 - Anemia, unspecified (6) Chronic diastolic (congestive) heart failure Code(s): I50.32 - CHRONIC DIASTOLIC (CONGESTIVE) HEART FAILURE Assessment/Plan see problem list family decision made--hospice
[2017-12-26 08:07] LABS: SERUM IRON SATURATION 48 % (15-55); TOTAL IRON BINDING CAPACITY 92 ug/dL (250-450); UIBC 48 ug/dL (111-343)
[2017-12-26] MEDS: ALBUTEROL SO4 2.5/IPRATROPIUM 0.5 INH SOL 3 ML VIAL.NEB. NEB PRN (08:39)
[2017-12-26] MEDS ORDERED: PT OWN MED DRAWER 7, Y5N ONE ×3 (09:18→20:55)
[2017-12-26] MEDS: VORICONAZOLE 200 MG TABLET (RESTRICTED TO ID) PO SCH ×2 (09:24→19:29)
[2017-12-26] MEDS: valACYclovir HCL 500 MG TABLET (FP) PO SCH ×2 (09:24→22:04)
[2017-12-26] MEDS: TBO-FILGRASTIM 480 MCG/0.8 ML DISP.SYRIN SQ SCH (09:25)
--- NOTE | 2017-12-26 12:13 | PN ---
Progress Note, Physician History of Present Illness: Pt seen and examined at bedside. He wakes up at times and is latheragic at times. Family do not want bloodwork, IV meds or bloodwork. He is not accepted to hospice yet. - Current Medication List Current Medications: Active Medications Acetaminophen (Tylenol -) 650 mg PO Q4H PRN PRN Reason: FEVER Last Admin: 12/25/17 22:33 Dose: 650 mg Albuterol/Ipratropium (Duoneb -) 1 amp NEB Q4H PRN PRN Reason: SHORTNESS OF BREATH Last Admin: 12/26/17 08:39 Dose: 1 amp Morphine Sulfate (Morphine Sulfate) 2 mg IVPUSH Q2H PRN PRN Reason: PAIN LEVEL 6-10 Last Admin: 12/26/17 11:57 Dose: 2 mg Tbo-Filgrastim (Granix -) 480 mcg SQ DAILY [facility] Last Admin: 12/26/17 09:25 Dose: 480 mcg Valacyclovir HCl (Valtrex -) 500 mg PO BID [facility] Last Admin: 12/26/17 09:24 Dose: 500 mg Voriconazole (Vfend (Restricted To Id)) 200 mg PO BIDWM [facility] Last Admin: 12/26/17 09:24 Dose: 200 mg - Objective Vital Signs: Vital Signs Temperature 99.6 F 12/26/17 07:26 Pulse Rate 143 H 12/26/17 07:26 Respiratory Rate 24 12/26/17 07:26 Blood Pressure 147/73 12/26/17 07:26 O2 Sat by Pulse Oximetry (%) 95 12/25/17 21:00 Constitutional: Yes: Moderate Distress Cardiovascular: Yes: S1, S2 Respiratory: Yes: On Nasal O2, Wheezes Gastrointestinal: Yes: Soft Genitourinary: Yes: Incontinence Musculoskeletal: Yes: Muscle Weakness Edema: No Neurological: Yes: Lethargy Labs: CBC, BMP 12/25/17 06:30 12/25/17 06:20 INR, PTT INR 1.19 (0.82-1.09) H 12/12/17 10:40 Problem List - Problems (1) Acute kidney injury Code(s): N17.9 - ACUTE KIDNEY FAILURE, UNSPECIFIED (2) Anemia Code(s): D64.9 - ANEMIA, UNSPECIFIED Qualifiers: Anemia type: unspecified type Qualified Code(s): D64.9 - Anemia, unspecified Assessment/Plan Current Medications Generic Name Dose Route Start Last Admin Trade Name Gisella PRN Reason Stop Dose Admin Acetaminophen 650 mg 12/22/17 07:57 12/25/17 22:33 Tylenol - PO 650 mg Q4H PRN Administration FEVER Albuterol/Ipratropium 1 amp 12/21/17 21:12 12/26/17 08:39 Duoneb - NEB 1 amp Q4H PRN Administration SHORTNESS OF BREATH Morphine Sulfate 2 mg 12/25/17 14:09 12/26/17 11:57 Morphine Sulfate IVPUSH 2 mg Q2H PRN Administration PAIN LEVEL 6-10 Tbo-Filgrastim 480 mcg 12/15/17 20:00 12/26/17 09:25 Granix - SQ 480 mcg DAILY [facility] Administration Valacyclovir HCl 500 mg 12/25/17 10:00 12/26/17 09:24 Valtrex - PO 500 mg BID [facility] Administration Voriconazole 200 mg 12/22/17 08:00 12/26/17 09:24 Vfend (Restricted To Id) PO 200 mg BIDWM [facility] Administration Impression 1. history of hyponatremia 2. anemia 3. leukopenia 4. hx lung cancer 5. hx melanoma 6. CAD 7. gout 8. fever 9. NUBIA 10. neutropenic fever 11. hyperkalemia Plan - family refusing labs, bloodwork or IV meds - no new labs - spoke to staff, pt is not accepted to hospice care, will need to clarify - ultrasound was refused as well - will follow prn Dr Bray
[2017-12-26] MEDS: MORPHINE 100 MG in SODIUM CHLORIDE 98 ML IVPB SCH (16:42)
--- NOTE | 2017-12-26 17:29 | PATH ---
Surgical Pathology Report Patient Name: PAL JARAMILLO Med. Rec. #: [id number] /Age/Gender: 1935 (Age: 82) / M Account: [id number] Location: [facility] MED/SURG Taken: 12/18/2017 Received: 12/24/2017 Reported: 12/26/2017 Physicians: Jennifer Fernández M.D. Specimen(s) Received LEFT HALLUX Clinical History Ingrown nail Final Diagnosis NAIL, HALLUX, LEFT, EXCISION: PORTION OF NAIL PLATE AND MATRIX WITHOUT SIGNIFICANT PATHOLOGIC FINDINGS. PAS SPECIAL STAIN FOR FUNGUS IS NEGATIVE. Electronically Signed Lillian Ray M.D. Gross Description Received in formalin labeled "left hallux," is a 1.5 x 1.0 x 0.1 cm dinero, rectangular portion of unguis. The specimen is sectioned and entirely submitted in one cassette. 12/24/201712/24/2017
[2017-12-26] MEDS: ACETAMINOPHEN 325 MG TABLET (FP) PO PRN (19:28)
[2017-12-27] MEDS: VORICONAZOLE 200 MG TABLET (RESTRICTED TO ID) PO SCH (08:55)
[2017-12-27] MEDS ORDERED: SCOPOLAMINE HYDROBROMIDE 1 PATCH PATCH.TD72 TD SCH (10:15)
[2017-12-27] MEDS ORDERED: ACETAMINOPHEN 650 MG SUPP.RECT PR PRN (10:17)
--- NOTE | 2017-12-27 10:17 | PN ---
Progress Note, Physician Chief Complaint: Inpatient Hospice History of Present Illness: On morphine drip Unable to swallow PO meds Acetaminophen changed to suppository - Current Medication List Current Medications: Active Medications Albuterol/Ipratropium (Duoneb -) 1 amp NEB Q4H PRN PRN Reason: SHORTNESS OF BREATH Last Admin: 12/26/17 08:39 Dose: 1 amp Morphine Sulfate 100 mg/ (Sodium Chloride) 100 mls @ 0.5 mls/hr IVPB TITR [facility]; Protocol Last Titration: 12/27/17 05:26 Dose: 1.5 mg/hr, 1.5 mls/hr Morphine Sulfate (Morphine Sulfate) 2 mg IVPUSH Q2H PRN PRN Reason: PAIN LEVEL 6-10 Last Admin: 12/26/17 11:57 Dose: 2 mg Scopolamine HBr (Transderm-Scop -) 1 patch TD Q72H [facility] - Objective Vital Signs: Vital Signs Temperature 100.6 F H 12/27/17 06:46 Pulse Rate 128 H 12/27/17 06:46 Respiratory Rate 20 12/27/17 06:46 Blood Pressure 123/65 12/27/17 06:46 O2 Sat by Pulse Oximetry (%) 95 12/26/17 21:00 Constitutional: Yes: Well Nourished, No Distress, Calm Cardiovascular: Yes: Regular Rate and Rhythm Respiratory: Yes: Regular Labs: CBC, BMP 12/25/17 06:30 12/25/17 06:20 INR, PTT INR 1.19 (0.82-1.09) H 12/12/17 10:40 Problem List - Problems (1) Hospice care Assessment/Plan: -VS: temps only -Acetaminophen supp 650 Q6H PRN for fever >100.0 F -Morphine drip -[facility] -D/C antiviral and antifungal as patient is unable to swallow pills -Scopolamine patch Q72H -Pt DNR/DNI Assessment/Plan see problem list
--- NOTE | 2017-12-27 10:52 | PN ---
Progress Note (short form) - Note Progress Note: PULMONARY Lethargic on morphine gtt. Febrile this AM. Last Vital Signs Temp Pulse Resp BP Pulse Ox 100.6 F H 128 H 20 123/65 95 12/27/17 06:46 12/27/17 06:46 12/27/17 06:46 12/27/17 06:46 12/26/17 21:00 Gen: lethargic but arousable Heart: tachycardic Lung: bilateral rhonchi Abd: soft, nontender Ext: no edema Skin: diffuse rash CBC, BMP 12/25/17 06:30 12/25/17 06:20 Active Medications Acetaminophen (Tylenol Suppository -) 650 mg MA Q6H PRN PRN Reason: FEVER Albuterol/Ipratropium (Duoneb -) 1 amp NEB Q4H PRN PRN Reason: SHORTNESS OF BREATH Last Admin: 12/26/17 08:39 Dose: 1 amp Morphine Sulfate 100 mg/ (Sodium Chloride) 100 mls @ 0.5 mls/hr IVPB TITR [facility]; Protocol Last Titration: 12/27/17 05:26 Dose: 1.5 mg/hr, 1.5 mls/hr Morphine Sulfate (Morphine Sulfate) 2 mg IVPUSH Q2H PRN PRN Reason: PAIN LEVEL 6-10 Last Admin: 12/26/17 11:57 Dose: 2 mg Scopolamine HBr (Transderm-Scop -) 1 patch TD Q72H [facility] A/P Neutropenic Sepsis Acute Kidney Injury AML h/o Lung Ca Lung Nodules CAD s/p CABG LV Diastolic Dysfunction HTN Drug Rash - continue supportive care - agree with comfort measures
[2017-12-27] MEDS: valACYclovir HCL 500 MG TABLET (FP) PO SCH (11:16)
[2017-12-27 14:32] VITALS: BP 104/46; PULSE 107; TEMP 99.1
[2017-12-27] MEDS: morphine SULFATE 4 MG/ML VIAL IVPUSH PRN (14:56)
[2017-12-27] MEDS: MORPHINE 100 MG in SODIUM CHLORIDE 98 ML IVPB SCH (18:55)
--- NOTE | 2017-12-27 20:54 | HOSP ---
Physical Examination Vital Signs: Vital Signs Temperature 99.1 F 12/27/17 14:30 Pulse Rate 107 H 12/27/17 14:30 Respiratory Rate 18 12/27/17 14:30 Blood Pressure 104/46 12/27/17 14:30 O2 Sat by Pulse Oximetry (%) 95 12/27/17 09:00 Labs: CBC, BMP 12/25/17 06:30 12/25/17 06:20 Hospitalist Encounter Assessment: 2010: called to see patient as pt has . Immediately went to see patient. Upon exam, the patient was unresponsive, no spontaneous movement. No response to verbal or noxious stimuli. Absent heart and breath sound for more than 1 minute. Pupils fixed and dilated. Pt pronounced. Son at bedside. Condolences offered. He is going to notify his mother in person and requests that we not call her.
== END 2017-12-27 22:30 | disposition expired | DRG 808 ==
LOC: JER 09:15 → JERBED 14:28 → J4W 12-13 11:54 → J4S 12-15 14:30 → J8W 12-22 06:54
PROVIDERS: ADMIT Family Medicine; ATTEND Family Medicine
PROC: 30233N1 Transfusion of Nonautologous Red Blood Cells into Peripheral Vein, Percutaneous Approach (ICD-10-PCS; 2017-12-14)
PROC: 0HDRXZZ Extraction of Toe Nail, External Approach (ICD-10-PCS; principal; 2017-12-17)
DX: D70.9 Neutropenia, unspecified (principal); A41.9 Sepsis, unspecified organism; R65.20 Severe sepsis without septic shock; C92.00 Acute myeloblastic leukemia, not having achieved remission; N17.9 Acute kidney failure, unspecified; C34.90 Malignant neoplasm of unspecified part of unspecified bronchus or lung; I50.32 Chronic diastolic (congestive) heart failure; E87.1 Hypo-osmolality and hyponatremia; I13.0 Hypertensive heart and chronic kidney disease with heart failure and stage 1 through stage 4 chronic kidney disease, or unspecified chronic kidney disease; E87.2 Acidosis; N18.3 Chronic kidney disease, stage 3 (moderate); D63.0 Anemia in neoplastic disease; R50.9 Fever, unspecified; R55 Syncope and collapse; I25.10 Atherosclerotic heart disease of native coronary artery without angina pectoris; Z95.1 Presence of aortocoronary bypass graft; R91.1 Solitary pulmonary nodule; L27.0 Generalized skin eruption due to drugs and medicaments taken internally; E78.5 Hyperlipidemia, unspecified; M10.9 Gout, unspecified; D72.819 Decreased white blood cell count, unspecified; R53.1 Weakness; L60.0 Ingrowing nail; B00.1 Herpesviral vesicular dermatitis; E87.6 Hypokalemia
CPT/HCPCS: 36415; 36430; 70450-TC; 71045-TC-FY; 71250-TC; 74176-TC; 76775-TC; 76856-TC; 80048; 80053; 81003; 81015; 82436; 82550; 82570; 82607; 82728; 82746; 82803; 83540; 83550; 83605; 83615; 83735; 83880; 84100; 84133; 84300; 84439; 84443; 84484; 84550; 85025; 85027; 85610; 85730; 86850; 86900; 86901; 86922; 87040; 87086; 87804; 88304-TC; 93005; 93010; 94010; 94640; 97116-GP; 97161-GP; 99285-25; G0480; J0131; J1447; J3465; J7030; J7620; P9038; P9058